=== PATIENT | male | born 1940 | race Caucasian/White ===

== ENCOUNTER → 2018-04-11 10:13 | Outpatient (CLI) | payer MEDICARE, SELFPAY ==
--- NOTE | 2018-04-11 14:45 | NEURO ---
NCS and/or EMG Patient Report Ordering Doctor: Oliver Devlin DATE OF SERVICE: 04/11/18 Morris Baez is a 77-year-old male presents for elective diagnostic testing of the right upper limb. He has chief complaint of numbness and tingling in the right hand. Electrodiagnostic findings: Right median motor nerve demonstrates prolonged distal latency with normal amplitude and reduced conduction velocity. Normal right ulnar motor response, including conduction across the elbow. Prolonged right median F wave. Prolonged right median sensory latency at the wrist. Absent right median palmar latency. Needle EMG testing reveals no evidence of denervation with normal motor unit action potentials. Electrodiagnostic impression: This is an abnormal study in the right upper limb. 1. Elective diagnostic findings demonstrate right-sided median mononeuropathy. This is consistent with a moderate right carpal tunnel syndrome. If there are any further questions, please not hesitate to contact me.
== END ==
PROVIDERS: Family Provider Family Medicine; PCP Family Medicine; Visit Provider Orthopaedic Surgery
DX: R20.2 Paresthesia of skin (principal)
CPT/HCPCS: 95886; 95909

== ENCOUNTER → 2019-08-29 | Outpatient (CLI) | payer MEDICARE, SELFPAY ==
[2014-03-25 06:28] VITALS: BMI 35.3
== END | disposition home or self-care (01) ==
PROVIDERS: PCP Family Medicine; Visit Provider Podiatrist
DX: L03.032 Cellulitis of left toe (principal)
CPT/HCPCS: 87070; 87186; 87205

== ENCOUNTER 2019-12-12 21:35 | Emergency (ER) | payer MEDICARE, SELFPAY ==
--- NOTE | 2019-12-12 00:10 | RAD_ITS ---
STUDY: X-RAY - LEFT FOOT CLINICAL: Male, 79 years old. foot swelling x 1 week, distal lower leg swelling x 6 months. TECHNIQUE: 3 view(s) of the foot. COMPARISON: None. FINDINGS: Normal talus, calcaneus, and tarsal bones. Normal visualized subtalar, talonavicular, calcaneocuboid, tarsal and tarsometatarsal articulations. Normal metatarsi. There is degenerative arthrosis of the metatarsophalangeal joint of the hallux . Normal tibial and fibular sesamoid bones. Normal interphalangeal joint of the great toe. Normal phalanges of the great toe. Normal second through fifth metatarsophalangeal joints. Normal interphalangeal joints and phalanges of the lesser toes. The soft tissue structures are unremarkable. RAD/Foot min 3 Views IMPRESSION: First metatarsophalangeal osteoarthritis. No acute osseous abnormality is evident. Electronically Signed: Marlon Ge MD at 0:45 EDT Tel , Service support ,
[2019-12-12 21:37] VITALS: BP 157/76; PULSE 85; RESP 16; TEMP 36.9; O2SAT 97; BMI 34.0
--- NOTE | 2019-12-12 23:35 | ED.VIS.GEN ---
History of Present Illness Chief Complaint: Cellulitis Informant: Patient Onset: Month(s) Context: Gradual Onset Current Severity: Moderate Maximum Severity: Moderate Narrative: Patient presents with chronic left toe wound. He now has developed cellulitis on his leg. He states he initially had a thick callus on the end of his second toe. He pulled this off in July. He did complete a course of antibiotics in August. He states he got tired of going back to the doctor to pay co-pays so he stopped seeing the doctor. The wound on the end of his second toe never closed and healed completely. He did have redness and swelling onto his foot recently which he attributed to athlete's foot. It got better with Lotrimin and using foot powder. For the last 1 week he has now noted redness and swelling in his left lower leg. He denies fever or chills. He otherwise does not feel ill. He denies diabetic history. - Past Medical History (1) Hypertension Status: Chronic (2) Chronic back pain Status: Chronic (3) History of left knee replacement Status: Chronic Past Medical History - Allergies and Home Meds Allergies/Adverse Reactions: Allergies No Known Allergies Allergy (Verified 12/12/19 21:40) Primary Care Physician: Baljeet Berkowitz MD [Primary Care Provider] - Prior records reviewed: Yes Smoking Status: Never smoker Review of Systems General: Denies: Chills, Fever Eyes: Denies: Visual changes - bilaterally ENT: Denies: Bilateral ear pain Cardiovascular: Denies: Chest pain Respiratory: Denies: Dyspnea, Cough Gastrointestinal: Denies: Abdominal pain Skin: Reports: Rash, Wounds Neurological: Denies: Headache Hematologic: Denies: Easy bruising, Easy bleeding Allergy: Denies: Uticaria Physical Exam Vital Signs/Narrative: Vital Signs Temp Pulse Resp BP Pulse Ox 12/12/19 21:37 98.4 F 85 16 157/76 H 97 Inital Vital Signs reviewed: Yes General: Well nourished, Well developed Head: Normocephalic ENT: Moist mucous membranes Neck: Supple Cardiovascular: Regular rate, Regular rhythm Respiratory: No distress, CTA bilaterally Abdomen: Soft, Nontender Extremities: - - There is an open wound on the distal asp of the left second toe. Left toe is edematous. There is erythema and mild warmth over the anterior left lower leg. Left leg does appear to be more edematous than right. Neurological: Alert, Oriented x3 Psychological: Normal affect Diagnostic/Tx/Re-eval Impressions Foot X-Ray 12/12/19 00:10 IMPRESSION: First metatarsophalangeal osteoarthritis. No acute osseous abnormality is evident. Electronically Signed: Marlon Ge MD at 0:45 EDT Tel , Service support , 12/12/19 00:10 Foot min 3 Views [RAD] Stat Laboratory Results 12/12/19 12/12/19 12/12/19 23:50 23:50 23:50 WBC 10.0 RBC 4.40 L Hgb 13.0 Hct 39.9 L MCV 90.7 MCH 29.5 MCHC 32.6 RDW Std Deviation 44.3 H RDW Coeff of Marta 13.3 Plt Count 261 MPV 9.5 Immature Gran % (Auto) 0.800 Neut % (Auto) 72.9 H Lymph % (Auto) 11.2 L [place] % (Auto) 11.4 H Eos % (Auto) 3.2 Baso % (Auto) 0.5 Absolute Neuts (auto) 7.3 Absolute Lymphs (auto) 1.12 Nucleated RBC % 0 Sodium 141 Potassium 4.1 Chloride 109 H Carbon Dioxide 28.0 Anion Gap 4 L BUN 20 H Creatinine 0.90 Estim Creat Clear Calc 69.72 Est GFR (MDRD) Af Amer 104 Est GFR (MDRD) Non-Af 86 BUN/Creatinine Ratio 22.2 H Glucose 103 Lactic Acid 0.8 Calcium 8.8 ED Disposition - Plan for ED Patient: Disposition: Home or Assisted Living Diagnosis: Cellulitis, Wound of foot Instructions: ED Cellulitis Prescriptions: Smz/Tmp Ds [Bactrim Ds] 1 tab PO BID #20 tab Transmission Status: Pending to [facility] Cephalexin [Keflex] 500 mg PO Q6 #40 cap Transmission Status: Pending to [facility] Referrals: Baljeet Berkowitz MD [Primary Care Provider] - Darrin Montes DPM [STAFF PHYSICIAN] - As soon as possible
[2019-12-13 00:11] LABS: Absolute Lymphocyte Count 1.12 X10^3/uL (0.83-4.51); Absolute Neutrophil Count 7.3 X10^3/uL (2.0-7.7); Basophil# 0.05 X10^3/uL; Basophil% 0.5 % (0-1); Eosinophil# 0.32 X10^3/uL; Eosinophils% 3.2 % (0-5); Hematocrit 39.9 % (40-54); Lymphocyte # 1.12 X10^3/ul (4.0); Lymphocyte % 11.2 % (19-41); Mean Corp Hgb Conc 32.6 g/dL (32-36); Mean Corpuscular Hgb 29.5 pg (27.0-32.0); Mean Corpuscular Volume 90.7 fL (80-94); Mean Platelet Vol. 9.5 fl (6.2-12.0); Monocyte# 1.14 X10^3/uL; Monocyte% 11.4 % (0-10); NRBC Flagged by Analyzer 0 % (0-5); Neutrophil % 72.9 % (47-70); Platelet Count 261 K/mm3 (150-450); RBC Distribution Width CV 13.3 % (11.6-14.6); RBC Distribution Width SD 44.3 fl (35.1-43.9)
[2019-12-13 00:16] LABS: Anion Gap 4 (5-15); BUN 20 mg/dL (7-18); BUN/Creat Ratio 22.2 RATIO (10-20); Calcium,Total 8.8 mg/dL (8.5-10.1); Chloride 109 mmol/L (98-107); EST Glomerular Filtration Rate 86 mL/min (>60); Est Glom Filt Rate - Afr Amer 104 mL/min (>60); Estimated Creatinine Clearance 69.72 ml/min; Glucose 103 mg/dL (74-106); Potassium 4.1 mmol/L (3.5-5.1); Sodium Level 141 mmol/L (136-145)
[2019-12-13 00:25] LABS: Lactic Acid 0.8 mmol/L (0.4-1.9)
[2019-12-13 00:54] VITALS: BP 140/82; PULSE 71; RESP 16; O2SAT 99
[2019-12-13 03:05] VITALS: BP 145/103; PULSE 71; RESP 16; TEMP 36.1; O2SAT 97
[2019-12-13 03:07] VITALS: BP 147/103; PULSE 71; RESP 16; O2SAT 97
[2019-12-13 03:27] VITALS: BP 145/100; PULSE 70; RESP 16; O2SAT 97
== END 2019-12-13 03:28 | disposition home or self-care (01) ==
PROVIDERS: Emergency Provider Emergency Medicine; PCP Family Medicine
DX: S91.105A Unspecified open wound of left lesser toe(s) without damage to nail, initial encounter (principal); L03.116 Cellulitis of left lower limb; X58.XXXA Exposure to other specified factors, initial encounter; Y93.9 Activity, unspecified; Y92.9 Unspecified place or not applicable; I10 Essential (primary) hypertension; G89.29 Other chronic pain; M54.9 Dorsalgia, unspecified; Z96.652 Presence of left artificial knee joint; Z79.899 Other long term (current) drug therapy
CPT/HCPCS: 73630; 80048; 83605; 85025; 87040; 96365; 96366; 96368; 99283; J7040; A4216; J0696

== ENCOUNTER → 2020-10-27 13:38 | Outpatient (CLI) | payer MEDICARE, SELFPAY ==
--- NOTE | 2020-10-27 14:00 | PET_ITS ---
EXAMINATION: 18F Fluciclovine PET/CT CLINICAL HISTORY: 79 year old male with history of carcinoma of the prostate presenting for restaging examination. COMPARISON EXAMINATION: Radionuclide bone scintigraphy study report dated 08/28/20, CT of the abdomen and pelvis report dated 08/28/20 PROCEDURE: The patient received an intravenous bolus injection of 10.44 mCi of Axumin (fluciclovine F-18) via the right hand antecubital fossa, on the imaging table with the patient in the supine position followed by an intravenous normal saline flush. The patient in the supine position with arms above the head, CT scan for attenuation correction was performed immediately following the bolus injection and left up for 1-2 minutes. The PET scan acquisition was begun within 3-5 minutes following injection from mid thigh to the base of the skull. The total scan time was registered between 20-30 minutes. Axumin (fluciclovine F-18) injection is indicated for positron emission tomography PET imaging in men with suspected prostate cancer recurrence based on elevation of the serum prostatic surface antigen (PSA) levels following prior treatment intervention. HEIGHT: 70 inches. WEIGHT: 240 lbs. LIVER BLOOD POOL SUV: 8.4 BLOOD POOL: 1.2 BONE MARROW: 3.8 INDEX LESION SIZE SUV INTERPRETATION Twelfth thoracic vertebra-focal 3.9 (max) > blood pool, = to bone marrow Warrants further investigation with magnetic resonance imaging NON-INDEX LESION SIZE SUV INTERPRETATION Prostate gland, mild homogenous < bone marrow uptake Low likelihood of viable neoplasia FINDINGS: Head/Neck: There is no evidence of abnormal increased radiopharmaceutical concentration on review of the head and neck structures to include the cranial vault and bilateral-lateral and anterior neck. Facilitated tracer distribution is observed in the oral cavity in proximity to dental hardware placement most consistent with metallic reconstruction artifact. Symmetric uptake is visualized in the bilateral parotid glands. CHEST: There is no evidence of abnormal increased radiopharmaceutical concentration on meticulous inspection of the bilateral hemithorax pulmonary parenchyma, pleural interface, mediastinal structures and right-left thoracic perihilum. Pertinent chest CT findings are as follows. There is atherosclerotic calcification defined in the thoracic aorta without evidence of dilatation-aneurysm formation. Coronary arterial calcification is observed. Bilateral axillary soft tissue densities with fatty hilus are non-fluciclovine avid. There are no parenchymal densities-nodules defined in the right and left hemithorax with discernible increased radiopharmaceutical uptake. Subcentimeter non-calcified densities visualized in the right and left hemithorax reveals no evidence of increased fluciclovine uptake. Abdomen/Pelvis: There is mild homogenous enhanced radiopharmaceutical concentration observed in the lower pelvis associated with the prostate gland generating a calculated maximal standard uptake value of 2.7, greater than blood pool, less than bone marrow. Normal physiologic distribution of the radiopharmaceutical is apparent in the hepatic and splenic parenchyma, pancreas, pancreatic head-tail, both renal units, bladder and visualized intestinal tract. Review of CT of the abdomen and pelvis demonstrates the following. Calcified granuloma formation is noted within the splenic parenchyma. Dense calcification is noted in the right and left renal units. There is atherosclerotic calcification defined in the abdominal aorta without evidence of dilatation-aneurysm formation. Pelvic arterial calcification is observed. A fat containing right inguinal hernia is noted. Right and left inguinal soft tissue densities with fatty hilus are ametabolic. Colonic diverticulosis is encountered without evidence of diverticulitis. Skeletal: There is an increase in 18F fluciclovine uptake noted in the twelfth thoracic vertebra demonstrating a calculated maximal standard uptake value of 3.9, essentially equivalent to bone marrow and greater than blood pool. Degenerative changes are noted in the cervical, thoracic and lumbar spine without evidence of increased radiopharmaceutical concentration. PET/PET/CT Tumor Base -Thigh Subs IMPRESSION: 1. Increased 18F fluciclovine uptake defined in the twelfth thoracic vertebra may be further investigated with magnetic resonance imaging secondary to the quantitative degree of uptake. 2. Facilitated radiopharmaceutical concentration observed in the distribution of the prostate gland, homogenous, less than bone marrow uptake is consistent with a low likelihood of viable neoplasm. (Paolo et al, Journal of Nuclear Medicine 55:1986, 2014). 3. No other quantitatively significant hypermetabolic abnormalities are noted. Electronic Signature Storm Slaughter D.O. Electronically Signed: Storm Slaughter DO at 7:23 EDT Tel , Service support ,
== END ==
PROVIDERS: PCP Family Medicine; Referring Provider Radiology Radiation Oncology; Visit Provider Radiology Radiation Oncology
DX: C61 Malignant neoplasm of prostate (principal)
CPT/HCPCS: 78815; A9588

== ENCOUNTER → 2021-01-05 12:54 | Outpatient (CLI) | payer MEDICARE, SELFPAY ==
--- NOTE | 2021-01-05 12:57 | CT_ITS ---
CT Lower Extremity W/O Contrast Injection INDICATION:80 Years old Male presenting with UNILATERAL PRIMARY OSTEOARTHRITIS. TECHNIQUE: Sequential axial 2.5 mm collimated images are obtained through the right hip and ankle. 0.625 mm images were obtained through the right knee. No intravenous contrast was administered. Images were reformatted in sagittal and coronal planes and forwarded for preoperative planning. COMPARISON: X-rays obtained on 12/13/2019 and 03/25/2014.. FINDINGS: Contiguous axial images of the right lower extremity was obtained in different collimations for preoperative planning, images demonstrate degenerative changes, no evidence of cortical irregularity is a lucencies to suggest fractures, no evidence of lytic or sclerotic bone lesions are seen. No evidence of right hip dislocation, mild narrowing of the superior right hip joint space is seen. 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 Prominent prominent osteophyte formation is seen. Subchondral lucencies visualized most prominent in the anterior medial tibial plateau and in the anterior lateral femoral condyle subcortical bone. Small suprapatellar effusion is seen with scattered calcifications.. Small popliteal cyst is visualized. The ankle mortise is well-maintained, the talar dome is unremarkable, degenerative changes visualized with no evidence of cortical irregularity and lucency to suggest a fracture. No evidence of dislocation is seen. Stranding in the intramuscular fat planes is seen. Stranding of the subcutaneous soft tissues is visualized, no evidence of CT/Extremity Lower without Contra IMPRESSION: Degenerative changes of the right lower extremity, no evidence of acute osseous abnormality. Electronically Signed: Jose Clark MD at 15:25 EDT Tel , Service support ,
== END ==
PROVIDERS: PCP Family Medicine; Referring Provider Orthopaedic Surgery; Visit Provider Orthopaedic Surgery
DX: M17.11 Unilateral primary osteoarthritis, right knee (principal)
CPT/HCPCS: 73700

== ENCOUNTER → 2021-01-12 09:28 | Outpatient (CLI) | payer MEDICARE, SELFPAY ==
--- NOTE | 2021-01-12 09:31 | EKG12_ITS ---
Test Reason : PREOP Blood Pressure : / mmHG Vent. Rate : 067 BPM Atrial Rate : 067 BPM P-R Int : 204 ms QRS Dur : 096 ms QT Int : 438 ms P-R-T Axes : 056 002 007 degrees QTc Int : 462 ms Sinus rhythm with frequent Premature ventricular complexes in a pattern of bigeminy Otherwise normal ECG Confirmed by JACKI KEITH, WOODY ([id number]), publications editor MADELINE AKERS ([id number]) on 01/13/2021 9:19:55 AM Referred By: Medardo Morgan Confirmed By:WOODY ECHEVERRIA MD
[2021-01-12 10:41] LABS: Hematocrit 42.7 % (40-54); Hemoglobin 14.2 g/dL (13.0-16.5); Mean Corp Hgb Conc 33.3 g/dL (32-36); Mean Corpuscular Hgb 29.9 pg (27.0-32.0); Mean Corpuscular Volume 89.9 fL (80-94); Mean Platelet Vol. 8.9 fl (6.2-12.0); Platelet Count 203 K/mm3 (150-450); RBC Distribution Width CV 12.4 % (11.6-14.6); RBC Distribution Width SD 41.3 fl (35.1-43.9); Red Blood Count 4.75 M/mm3 (4.6-6.2); White Blood Count 4.4 K/mm3 (4.4-11.0)
[2021-01-12 11:12] LABS: Hemoglobin A1c 5.4 % (3.8-5.6)
[2021-01-12 11:24] LABS: Anion Gap 6 (5-15); BUN 20 mg/dL (7-18); BUN/Creat Ratio 24.2 RATIO (10-20); Calcium,Total 8.9 mg/dL (8.5-10.1); Chloride 107 mmol/L (98-107); Creatinine, Serum 0.82 mg/dL (0.70-1.30); EST Glomerular Filtration Rate 95 mL/min (>60); Est Glom Filt Rate - Afr Amer 115 mL/min (>60); Glucose 106 mg/dL (74-106); Potassium 4.1 mmol/L (3.5-5.1); Sodium Level 139 mmol/L (136-145)
== END ==
PROVIDERS: PCP Family Medicine; Referring Provider Physician Assistant; Visit Provider Physician Assistant
DX: Z01.810 Encounter for preprocedural cardiovascular examination (principal); Z01.818 Encounter for other preprocedural examination; Z11.59 Encounter for screening for other viral diseases; E11.9 Type 2 diabetes mellitus without complications
CPT/HCPCS: 36415; 80048; 83036; 85027; 87635; 93005; C9803; U0005; U0003

== ENCOUNTER → 2021-02-09 13:15 | Outpatient (CLI) | payer MEDICARE, SELFPAY ==
--- NOTE | 2021-02-09 13:22 | ECHOD_ITS ---
Reason For Study: Arrhythmia Procedure This was a 2D Doppler, Color Flow transthoracic echocardiogram. Exam performed in department. Left Ventricle Normal LV size. Moderate concentric left ventricular hypertrophy. Left ventricular systolic function is normal. The estimated ejection fraction is 55 %. Stage 1 diastolic dysfunction. No regional wall motion abnormalities noted. Right Ventricle Normal RV size. Normal systolic function. Atria Normal left atrium. Normal right atrium. Mitral Valve There is mild mitral annular calcification. Mild (1+) eccentric mitral valve insufficiency. Tricuspid Valve Normal tricuspid valve. Mild tricuspid valve insufficiency. Pulmonary artery systolic pressure is 34 mmHg. Aortic Valve Trisinus/trileaflet aortic valve. Mild focal aortic valve calcification. Peak aortic valve gradient 46 mmHg. Mean aortic valve gradient 24 mmHg. Mild to moderate aortic stenosis. Pulmonic Valve Normal pulmonic valve. Great Vessels Normal aortic root. The pulmonary artery is normal size. Normal inferior vena cava. Pericardium/Pleural No pericardial effusion. MMode/2D Measurements & Calculations LVIDd: 4.3 cm IVSd: 1.4 cm LVOT diam: 2.1 cm LVIDs: 3.2 cm LVPWd: 1.5 cm LVOT area: 3.3 cm2 FS: 26.5 % LA dimension: 3.9 cm LAV(MOD-bp): 135.6 ml LA A4 area: 29.0 cm2 LAV(MOD-bp) Indexed: 58.9 ml/m2 LAV(MOD-sp2): 138.2 ml LAV(MOD-sp4): 113.2 ml RA A4 area: 23.4 cm2 Time Measurements MV dec time: 0.35 sec Doppler Measurements & Calculations MV E max grant: 91.2 cm/sec Lat Peak E' Grant: 12.1 cm/sec Med Peak E' Grant: 4.6 cm/sec MV A max grant: 144.3 cm/sec E/E' lat: 7.6 E/E' med: 19.9 MV E/A: 0.63 MV V2 max: 161.1 cm/sec MV P1/2t max grant: 92.5 cm/sec Ao V2 max: 341.0 cm/sec MV max P.4 mmHg MV P1/2t: 114.1 msec Ao max P.6 mmHg MV V2 mean: 76.5 cm/sec MV dec slope: 237.4 cm/sec2 Ao V2 mean: 230.1 cm/sec MV mean P.1 mmHg Ao mean P.5 mmHg MV V2 VTI: 39.7 cm MVA(P1/2t): 1.9 cm2 Ao V2 VTI: 79.9 cm MVA(VTI): 2.4 cm2 RADHA(I,D): 1.2 cm2 RADHA(V,D): 1.2 cm2 LV V1 max: 122.9 cm/sec SV(LVOT): 95.5 ml PA V2 max: 88.8 cm/sec LV V1 max P.1 mmHg LV V1 mean P.0 mmHg LV V1 mean: 80.0 cm/sec LV V1 VTI: 28.6 cm TR max grant: 273.3 cm/sec TR max P.9 mmHg ECHO/Echo Complete Interpretation Summary Normal LV size. Left ventricular systolic function is normal. The estimated ejection fraction is 55 %. Moderate concentric left ventricular hypertrophy. Mean aortic valve gradient 24 mmHg. Mild to moderate aortic stenosis. Stage 1 diastolic dysfunction. Ordering Physician: Jair Coto Referring Physician: Darrin Ramirez Performed By: Juan Wise RCS
== END ==
PROVIDERS: PCP Family Medicine; Referring Provider Internal Medicine Cardiovascular Disease; Visit Provider Internal Medicine Cardiovascular Disease
DX: R94.31 Abnormal electrocardiogram [ECG] [EKG] (principal)
CPT/HCPCS: 93306

== ENCOUNTER → 2021-03-17 08:26 | Outpatient (CLI) | payer MEDICARE, SELFPAY ==
--- NOTE | 2021-03-17 09:17 | EKG12_ITS ---
Test Reason : PREOP Blood Pressure : / mmHG Vent. Rate : 083 BPM Atrial Rate : 083 BPM P-R Int : 200 ms QRS Dur : 098 ms QT Int : 418 ms P-R-T Axes : 059 014 022 degrees QTc Int : 491 ms Sinus rhythm with frequent Premature ventricular complexes Prolonged QT Abnormal ECG Confirmed by JACKI KEITH, WOODY ([id number]), website/blog editor MADELINE AKERS ([id number]) on 03/18/2021 9:01:22 AM Referred By: Medardo Morgan Confirmed By:WOODY ECHEVERRIA MD
[2021-03-17 10:24] LABS: Hematocrit 41.4 % (40-54); Mean Corp Hgb Conc 33.8 g/dL (32-36); Mean Corpuscular Hgb 29.6 pg (27.0-32.0); Mean Corpuscular Volume 87.5 fL (80-94); Mean Platelet Vol. 9.3 fl (6.2-12.0); Platelet Count 232 K/mm3 (150-450); RBC Distribution Width CV 12.4 % (11.6-14.6); RBC Distribution Width SD 39.8 fl (35.1-43.9); Red Blood Count 4.73 M/mm3 (4.6-6.2); White Blood Count 4.7 K/mm3 (4.4-11.0)
[2021-03-17 10:42] LABS: Hemoglobin A1c 5.7 % (3.8-5.6)
[2021-03-17 11:01] LABS: Anion Gap 6 (5-15); BUN 19 mg/dL (7-18); BUN/Creat Ratio 23.4 RATIO (10-20); Chloride 104 mmol/L (98-107); Creatinine, Serum 0.81 mg/dL (0.70-1.30); EST Glomerular Filtration Rate 97 mL/min (>60); Est Glom Filt Rate - Afr Amer 117 mL/min (>60); Glucose 80 mg/dL (74-106); Potassium 3.9 mmol/L (3.5-5.1); Sodium Level 138 mmol/L (136-145)
== END ==
PROVIDERS: PCP Family Medicine; Referring Provider Physician Assistant; Visit Provider Physician Assistant
DX: Z01.810 Encounter for preprocedural cardiovascular examination (principal); Z01.818 Encounter for other preprocedural examination; Z11.59 Encounter for screening for other viral diseases
CPT/HCPCS: 36415; 80048; 83036; 85027; 87635; 93005; C9803; U0005; U0003

== ENCOUNTER → 2021-03-19 | Outpatient (CLI) | payer MEDICARE, SELFPAY ==
--- NOTE | 2021-03-19 | KNEE_PTH ---
PATIENT: KEENA FRIED LOC: [facility] U#:[id number] AGE/SX: 80/M ROOM: RE03/19/[address]: Dr. Bryan Daniel DO : 1940 BED: DIS: 03/19/2021 SPEC #: [id number] RECD: 03/19/21 15:00 STATUS: JOHN REMorena #: [id number] ANTHONY: 03/19/21 00:[address]: Bryan Daniel DEPT: SURGICAL PATHOLOGY RECD BY: Sebastian Dyson ENTERED: 03/22/21 09:02 SP TYPE: TOTAL KNEE OTHR DR: Dr. Darrin Ramirez MD [facility] Tissues: Knee, NOS Procedures: Decalcification bone/plaque Surgery Specimen Level IV HEADER OPERATION: Robotic assisted right total knee arthroplasty PRE-OP DIAGNOSIS: Unilateral primary osteoarthritis TISSUE SUBMITTED: Bone and soft tissue right knee MICROSCOPIC DIAGNOSIS Bone and soft tissue, right knee, total knee replacement/resection: Pieces of bone with degenerative osteoarthritic changes. Fibroadipose tissue, fibroconnective tissue, skeletal muscle tissue and reactive synovial tissue. MONIKA:blanca 03/25/2021 MICROSCOPIC DESCRIPTION Slides are reviewed. GROSS DESCRIPTION Received is one container designated bone and soft tissue right knee. The specimen consists of multiple fragments of frazier-yellow bone measuring in aggregate 11.5 x 8 x 4 cm. Also in the specimen container are multiple fragments of yellow-white soft tissue measuring in aggregate 11 x 8 x 4 cm. A number of bony fragments contain articular surfaces consistent with tibial plateau and femoral condyle and displaying prominent osteophyte formation, eburnation, and bone erosion. Riveter Pneumatic sections are submitted in two cassettes as follows: 1 - soft tissue, 2 - bone after decalcification. / MONIKA:blanca 03/22/21 TC:5 [facility] [place]: [id number], [id number]
== END | disposition home or self-care (01) ==
LOC: LABSPEC 15:23
PROVIDERS: PCP Family Medicine; Visit Provider Orthopaedic Surgery
DX: M17.11 Unilateral primary osteoarthritis, right knee (principal)
CPT/HCPCS: 88305; 88311

== ENCOUNTER 2021-09-07 11:14 | Emergency (ER) | payer MEDICARE, SELFPAY ==
[2021-09-07 11:14] VITALS: BP 194/74; PULSE 76; RESP 16; TEMP 36.4; O2SAT 97; BMI 35.7
--- NOTE | 2021-09-07 11:25 | CT_ITS ---
STUDY: CT ABDOMEN AND PELVIS WITHOUT CONTRAST REASON FOR EXAM: Male, 80 years old. Kidney Stone. History of prostate carcinoma. RADIATION DOSAGE (If Supplied By Facility): CTDIvol = ( 19.76 ) mGy, DLP = ( 1031.65 ) mGycm TECHNIQUE: Transaxial images were obtained from the dome of the diaphragm to the symphysis pubis without oral contrast, and without intravenous contrast. Sagittal and coronal images were reconstructed. Individualized dose optimization techniques were used for this CT. COMPARISON: None. FINDINGS: Calcified right hilar lymph nodes. Calcified granuloma in the right middle lobe. There is a 5.2 mm noncalcified nodule in the peripheral lateral aspect of the left lower lobe as seen on Image #9. Coronary artery calcification. Normal liver. Normal gallbladder and extrahepatic biliary system. There are multiple benign calcified granulomata of the spleen. Normal pancreas. Normal bilateral adrenal glands. Nonobstructive right intrarenal calculi. The largest calculus measures 1.2 cm. This is in the lower pole calyx of the right kidney. There is a 1 cm calculus at the left ureteropelvic junction causing left hydronephrosis and proximal left hydroureter.. Left perinephric stranding. 2 mm nonobstructive calculus in the posterior midpole calyx. Nonobstructive tiny calculi in the lower pole calyx of the left kidney. There is a small hiatal hernia. Normal small intestine. There are multiple colonic diverticula consistent with diverticulosis. The appendix is visualized and appears normal. There is diffuse atherosclerotic calcification of the abdominal aorta and its major visceral branches, without a demonstrated aneurysm. Normal inferior vena cava. Normal retroperitoneum. Normal urinary bladder. There are prostatic calcifications. There is a right-sided inguinal hernia containing adipose tissue. There are diffuse degenerative changes of the visualized lumbar spine. CT/Abdomen/Pelvis without Cont IMPRESSION: 1 cm calculus at the left ureteropelvic junction causing left-sided hydronephrosis and proximal left hydroureter with left perinephric stranding. Nonobstructive bilateral intrarenal calculi more prominent on the right side. The largest calculus is in the lower pole calyx of the right kidney measuring 1.2 cm. Prostatic calcification. Electronically Signed: Jules Vo MD at 12:13 EDT ,
--- NOTE | 2021-09-07 11:26 | EX.ED.DYSGE1 ---
HPI History of Present Illness Chief Complaint: Flank Pain Informant: patient Narrative Narrative: 80-year-old male presenting to the emergency room with left flank pain. Symptoms began abruptly yesterday morning at 0400 hours. He notes associated nausea and constipation. He states now he feels the pain in the left flank but also wrapping around to the lower left quadrant of his abdomen. No fevers. Sees Dr. Mejia for urology. He has not required stone surgery in the past. PFSH PFS Medical History Abnormal electrocardiogram BPH (benign prostatic hyperplasia) Chronic back pain Diverticulosis Essential hypertension GERD (gastroesophageal reflux disease) Hyperlipidemia Inguinal hernia Lung nodule Multiple premature ventricular complexes Nonrheumatic aortic (valve) stenosis Obesity Osteoarthritis Prostate cancer metastatic to bone Home Medications acidophilus-pectin, citrus 1 tab PO DAILY 03/12/14 [History Last Taken Unknown] metoprolol succinate 25 mg PO DAILY 03/12/14 [History Last Taken 03/25/14 05:00] multivitamin with folic acid [Thera] 1 tab PO DAILY 03/12/14 [History Last Taken Unknown] cholecalciferol (vitamin D3) 1,250 mcg PO DAILY 12/12/19 [History Last Taken Unknown] meloxicam 15 mg PO DAILY 12/12/19 [History Last Taken Unknown] tamsulosin 1 tab PO DAILY 12/12/19 [History Last Taken Unknown] lisinopril 20 mg-hydrochlorothiazide 25 mg tablet 1 tab PO DAILY 01/27/21 [History Last Taken Unknown] ondansetron 4 mg PO Q6H PRN PRN #10 tab 09/07/21 [Rx Last Taken Unknown] oxycodone-acetaminophen 1 - 2 tab PO Q6H PRN PRN 5 Days #20 tablet 09/07/21 [Rx Last Taken Unknown] Allergy/AdvReac Type Severity Reaction Status Date / Time No Known Allergies Allergy Verified 09/07/21 11:16 Family History Father Heart disease Surgical History Amputated toe History of carpal tunnel release History of inguinal hernia repair History of left knee replacement History of total knee arthroplasty Social History (Updated 09/07/21 @ 11:[address] Marty Bender, DO) Smoking Status: Never smoker substance use type: does not use ROS ROS ED Constitutional Constitutional ED: Denies chills, fever(s) or weight loss Eyes Eyes: Denies change in vision or diplopia ENT ENT ED: Denies ear pain, rhinorrhea or sore throat Cardiovascular Cardiovascular: Denies chest pain, orthopnea, palpitations or racing heartbeat Respiratory/Chest Respiratory/Chest: Denies cough, dyspnea or orthopnea Gastrointestinal Gastrointestinal: Reports abdominal pain and nausea; Denies diarrhea or vomiting Genitourinary Genitourinary ED: Denies dysuria, hematuria or urinary frequency Musculoskeletal Musculoskeletal: Reports back pain; Denies arthralgias or myalgias Integumentary Denies abscess or rash Neurologic Neurologic: Denies headache(s) or weakness Psychiatric Psychiatric: Denies anxiety, depression, suicidal ideation or suicidal thoughts Endocrine Endocrinology: Denies polydipsia, polyphagia or polyuria Allergic/Immunologic Allergic/Immunologic ED: Denies mouth swelling, tongue swelling or urticaria EXAM Physical Exam Const Vital Signs: 09/07/21 11:14 Temperature 97.6 F L Temperature Source Temporal Pulse Rate 76 Respiratory Rate 16 Blood Pressure 194/74 H Blood Pressure Mean 114 Pulse Ox 97 Oxygen Delivery Method Room Air Positive well nourished and well developed General Appearance ED: well developed HEENT Reports normocephalic, head/scalp atraumatic, TM's clear and moist mucous membranes Negative for trauma Tympanic Membrane ED: Yes TM's clear Eyes PERRL and EOMs intact bilaterally Neck no lymphadenopathy, supple and no JVD Resp normal respiratory effort and clear to auscultation bilaterally Cardio regular rate, regular rhythm and no murmurs GI normal to inspection, nondistended, normoactive bowel sounds and non-tender Palpation: soft Back/Spine no CVA tenderness and normal ROM Extremity normal to inspection General Extremety ED: Negative for edema General Extremity: Negative for edema Neuro oriented x3 and CN's II-XII intact bilaterally Sensorium / Orientation: alert Motor Exam: strength 5/5 throughout Psych mental status grossly normal Mood & Affect: Negative for depressed or tearful Skin no rashes or lesions noted and no wounds MDM MDM MDM Narrative Medical decision making narrative: Creatinine today is elevated off baseline at 1.46. Urinalysis is negative. There is a 1 cm calculus at the left UPJ with left-sided hydronephrosis perinephric stranding and left hydroureter. Patient received Toradol morphine Zofran and fluids. Case was discussed with his urologist Dr. Mejia who is come to the emergency department to evaluate the patient Lab Data Attestation: I reviewed the patient's lab results. Labs: Laboratory Results - last 24 hr 09/07/21 09/07/21 11:38 11:45 Sodium 136 Potassium 3.2 L Chloride 99 Carbon Dioxide 27.0 Anion Gap 10 BUN 24 H Creatinine 1.46 H Estim Creat Clear Calc 40.97 Est GFR (MDRD) Af Amer 60 Est GFR (MDRD) Non-Af 49 L BUN/Creatinine Ratio 16.4 Glucose 135 H Calcium 9.3 Urine Color Yellow Urine Clarity Clear Urine pH 6.0 Ur Specific [place] 1.015 Urine Protein 15 H Urine Glucose (UA) Normal Urine Ketones Negative Urine Occult Blood 50 H Urine Nitrite Negative Urine Bilirubin Negative Urine Urobilinogen Normal Ur Leukocyte Esterase Negative Urine RBC 0 SEEN Urine WBC 0 SEEN Ur Squamous Epith Cells 0 SEEN Urine Bacteria 0 SEEN Urine Mucus 0 SEEN Radiography Diagnostic Testing: Clinical Impression(s) from Imaging Studies Abdomen/Pelvis CT 09/07/21 11:25 IMPRESSION: 1 cm calculus at the left ureteropelvic junction causing left-sided hydronephrosis and proximal left hydroureter with left perinephric stranding. Nonobstructive bilateral intrarenal calculi more prominent on the right side. The largest calculus is in the lower pole calyx of the right kidney measuring 1.2 cm. Prostatic calcification. Electronically Signed: Jules Vo MD at 12:13 EDT , Discharge Plan Triage Chief Complaint: Flank Pain ED Provider: Marty Bender Dx/Rx/DC Orders Clinical Impression: Ureterolithiasis, Renal colic on left side Instructions: ED Kidney Stone w/ Colic Prescriptions: New oxycodone-acetaminophen [oxycodone-acetaminophen] 1 TABLET tablet 1 - 2 tab PO Q6H PRN PRN (Reason: pain) 5 Days Qty: 20 RF: 0 ondansetron [ondansetron] 4 MG tablet 4 mg PO Q6H PRN PRN (Reason: Nausea) Qty: 10 RF: 0 No Action lisinopril-hydrochlorothiazide 20-25 mg tablet 1 tab PO DAILY RF: 0 metoprolol succinate 25 MG tablet 25 mg PO DAILY RF: 0 acidophilus-pectin, citrus 1 TABLET tablet 1 tab PO DAILY RF: 0 multivitamin with folic acid [Thera] 1 TABLET tablet 1 tab PO DAILY RF: 0 meloxicam 15 MG tablet 15 mg PO DAILY RF: 0 tamsulosin 0.4 mg capsule 1 tab PO DAILY RF: 0 cholecalciferol (vitamin D3) 1,250 MCG capsule 1,250 mcg PO DAILY RF: 0 Primary Care Provider: Darrin Ramirez Referrals: Darrin Ramirez MD [Primary Care Provider] - Cleve Mejia MD [STAFF PHYSICIAN] - [facility] appointment Disposition Disposition: Home, Self Care
[2021-09-07] MEDS: Ondansetron 4 MG/2 ML Vial IV (11:36)
[2021-09-07] MEDS: Ketorolac 30 MG/ML Syringe IV (11:36)
[2021-09-07] MEDS: Morphine 4 MG/ML Syringe IV (11:37)
[2021-09-07] MEDS: 0.9% Normal Saline 1,000 ML 250 ML IV (11:38)
[2021-09-07 11:45] LABS: Bacteria 0 SEEN /hpf (None Seen); Mucous, Urine 0 SEEN /hpf (<or=2+); Red Blood Cells-Urine 0 SEEN /hpf (0-5); Squamous Epithelial Cells - UA 0 SEEN /hpf (0-5); White Blood Cells 0 SEEN /hpf (0-5)
[2021-09-07 11:54] LABS: Color, Urine Yellow (Yellow); Glucose, Dipstick Normal (Normal); Ketone-Dipstick Negative (Negative); Leukocyte Esterase-Dipstick Negative /ul (Negative); Nitrite-Dipstick Negative (Negative); Occult Blood-Urine 50 /ul (Negative); Protein-Dipstick 15 mg/dl (Negative); Specific Gravity, Urine 1.015 (1.002-1.030); Urine Bilirubin Dipstick Negative (Negative); Urine Clarity Clear (Clear); Urine Urobilinogen Normal (Normal)
[2021-09-07 12:05] LABS: Anion Gap 10 (5-15); BUN 24 mg/dL (7-18); BUN/Creat Ratio 16.4 RATIO (10-20); Calcium,Total 9.3 mg/dL (8.5-10.1); Chloride 99 mmol/L (98-107); Creatinine, Serum 1.46 mg/dL (0.70-1.30); EST Glomerular Filtration Rate 49 mL/min (>60); Est Glom Filt Rate - Afr Amer 60 mL/min (>60); Estimated Creatinine Clearance 40.97 ml/min; Glucose 135 mg/dL (74-106); Potassium 3.2 mmol/L (3.5-5.1); Sodium Level 136 mmol/L (136-145)
--- NOTE | 2021-09-07 13:15 | EKG12_ITS ---
Test Reason : BACK PAIN Blood Pressure : / mmHG Vent. Rate : 067 BPM Atrial Rate : 067 BPM P-R Int : 202 ms QRS Dur : 096 ms QT Int : 460 ms P-R-T Axes : 052 002 -09 degrees QTc Int : 486 ms Sinus rhythm with occasional Premature ventricular complexes Abnormal ECG Confirmed by ROB KEITH, CHRIS ([id number]), film and video editor MADELINE AKERS ([id number]) on 09/08/2021 9:49:55 AM Referred By: Confirmed By:CHRIS RIVAS MD
--- NOTE | 2021-09-07 13:29 | PCM.CONS.U ---
Assessment & Plan Assessment/Plan (1) Ureterolithiasis: (2) Renal colic on left side: PLAN: Discharged home with pain medicine etc., will be to see him preop blood work COVID EKG. Plan for left ureteroscopy laser lithotripsy of stone and stent. In the near future. HPI Consult Data Date of Consult: 09/07/21 HPI Narrative HPI Narrative: KEENA FRIED, is a 80 M who presents to the emergency room with a large stone in the proximal left ureter causing severe obstruction his pain is now under control he will be discharged home today today met with the patient we just discussed options of management for his kidney stone we will get him set up in the near future for surgery for laser lithotripsy of the stone. [facility] Medical History Abnormal electrocardiogram BPH (benign prostatic hyperplasia) Chronic back pain Diverticulosis Essential hypertension GERD (gastroesophageal reflux disease) Hyperlipidemia Inguinal hernia Lung nodule Multiple premature ventricular complexes Nonrheumatic aortic (valve) stenosis Obesity Osteoarthritis Prostate cancer metastatic to bone Home Medications acidophilus-pectin, citrus 1 tab PO DAILY 03/12/14 [History Last Taken Unknown] metoprolol succinate 25 mg PO DAILY 03/12/14 [History Last Taken 03/25/14 05:00] multivitamin with folic acid [Thera] 1 tab PO DAILY 03/12/14 [History Last Taken Unknown] cholecalciferol (vitamin D3) 1,250 mcg PO DAILY 12/12/19 [History Last Taken Unknown] meloxicam 15 mg PO DAILY 12/12/19 [History Last Taken Unknown] tamsulosin 1 tab PO DAILY 12/12/19 [History Last Taken Unknown] lisinopril 20 mg-hydrochlorothiazide 25 mg tablet 1 tab PO DAILY 01/27/21 [History Last Taken Unknown] ondansetron 4 mg PO Q6H PRN PRN #10 tab 09/07/21 [Rx Last Taken Unknown] oxycodone-acetaminophen 1 - 2 tab PO Q6H PRN PRN 5 Days #20 tablet 09/07/21 [Rx Last Taken Unknown] Allergy/AdvReac Type Severity Reaction Status Date / Time No Known Allergies Allergy Verified 09/07/21 11:16 Family History Father Heart disease Surgical History Amputated toe History of carpal tunnel release History of inguinal hernia repair History of left knee replacement History of total knee arthroplasty Social History (Updated 09/07/21 @ 11:[address] Marty Bender DO) Smoking Status: Never smoker substance use type: does not use Lab / Micro Data Result Diagrams: 09/07/21 11:45 09/07/21 11:45 Labs: Laboratory Results - last 24 hr 09/07/21 11:38: Urine Color Yellow, Urine Clarity Clear, Urine pH 6.0, Ur Specific [place] 1.015, Urine Protein 15 H, Urine Glucose (UA) Normal, Urine Ketones Negative, Urine Occult Blood 50 H, Urine Nitrite Negative, Urine Bilirubin Negative, Urine Urobilinogen Normal, Ur Leukocyte Esterase Negative, Urine RBC 0 SEEN, Urine WBC 0 SEEN, Ur Squamous Epith Cells 0 SEEN, Urine Bacteria 0 SEEN, Urine Mucus 0 SEEN 09/07/21 11:45: Sodium 136, Potassium 3.2 L, Chloride 99, Carbon Dioxide 27.0, Anion Gap 10, BUN 24 H, Creatinine 1.46 H, Estim Creat Clear Calc 40.97, Est GFR (MDRD) Af Amer 60, Est GFR (MDRD) Non-Af 49 L, BUN/Creatinine Ratio 16.4, Glucose 135 H, Calcium 9.3 Radiology Impression Abdomen/Pelvis CT 09/07/21 11:25 IMPRESSION: 1 cm calculus at the left ureteropelvic junction causing left-sided hydronephrosis and proximal left hydroureter with left perinephric stranding. Nonobstructive bilateral intrarenal calculi more prominent on the right side. The largest calculus is in the lower pole calyx of the right kidney measuring 1.2 cm. Prostatic calcification. Electronically Signed: Jules Vo MD at 12:13 EDT ,
[2021-09-07 13:39] VITALS: BP 155/87; PULSE 67
[2021-09-07 13:40] LABS: Absolute Lymphocyte Count 1.05 X10^3/uL (0.83-4.51); Absolute Neutrophil Count 6.9 X10^3/uL (2.0-7.7); Basophil# 0.04 X10^3/uL; Basophil% 0.4 % (0-1); Eosinophil# 0.22 X10^3/uL; Eosinophils% 2.4 % (0-5); Hematocrit 43.5 % (40-54); Hemoglobin 14.3 g/dL (13.0-16.5); Lymphocyte # 1.05 X10^3/ul (0.83-4.51); Lymphocyte % 11.7 % (19-41); Mean Corp Hgb Conc 32.9 g/dL (32-36); Mean Corpuscular Hgb 29.2 pg (27.0-32.0); Mean Corpuscular Volume 88.8 fL (80-94); Mean Platelet Vol. 10.1 fl (6.2-12.0); Monocyte# 0.71 X10^3/uL; Monocyte% 7.9 % (0-10); NRBC Flagged by Analyzer 0 % (0-5); Neutrophil # 6.94 X10^3/uL (2.7-7.7); Neutrophil % 77.3 % (47-70); Platelet Count 223 K/mm3 (150-450); RBC Distribution Width CV 13.7 % (11.6-14.6); RBC Distribution Width SD 44.5 fl (35.1-43.9)
--- NOTE | 2021-09-13 14:27 | CASEMGMT ---
ED follow-up phone call: Patient Cheryl answered call. Per , patient is doing better today. Patient has follow-up with Dr. Mejia. Patient was able to fill prescriptions without any issues. had no further questions or concerns at this time.
== END 2021-09-07 13:42 | disposition home or self-care (01) ==
PROVIDERS: Emergency Provider Emergency Medicine; PCP Family Medicine; Visit Provider Emergency Medicine
DX: N13.2 Hydronephrosis with renal and ureteral calculous obstruction (principal); E78.5 Hyperlipidemia, unspecified; I10 Essential (primary) hypertension; N40.0 Benign prostatic hyperplasia without lower urinary tract symptoms; G89.29 Other chronic pain; K21.9 Gastro-esophageal reflux disease without esophagitis; I35.0 Nonrheumatic aortic (valve) stenosis; E66.9 Obesity, unspecified; Z85.46 Personal history of malignant neoplasm of prostate; M19.90 Unspecified osteoarthritis, unspecified site; Z85.830 Personal history of malignant neoplasm of bone; Z79.899 Other long term (current) drug therapy; N13.4 Hydroureter; Z68.35 Body mass index [BMI] 35.0-35.9, adult
CPT/HCPCS: 74176; 80048; 81001; 85025; 87811; 93005; 96361; 96374; 96375; 99283; J7030; A4216; J2405

== ENCOUNTER 2022-03-21 01:47 | Emergency (ER) | payer MEDICARE, SELFPAY ==
[2022-03-21 01:48] VITALS: BP 163/99; PULSE 91; RESP 16; TEMP 36.8; O2SAT 95; BMI 35.2
--- NOTE | 2022-03-21 02:11 | CT_ITS ---
EXAM: CT ABDOMEN AND PELVIS WITHOUT INTRAVENOUS CONTRAST CLINICAL INDICATION: flank pain right TECHNIQUE: Helically acquired images were obtained of the abdomen and pelvis without intravenous contrast. CTDIvol = ( 18.44 ) mGy, DLP = ( 935.19 ) mGycm This CT exam was performed using one or more of the following dose reduction techniques: automated exposure control, adjustment of the mA and/or kV according to patient size, and/or use of iterative reconstruction technique. This report was created using hi5 report generation technology. COMPARISON: 09/08/2019 FINDINGS: LOWER THORAX: Calcified granulomas involving right middle lobe. Stable small subpleural noncalcified indeterminate pulmonary nodule involving the inferior lingula. No cardiomegaly. No significant pericardial effusion. ABDOMEN: LIVER: Unremarkable. Homogeneous. GALLBLADDER AND BILE DUCTS: Unremarkable. No calcified gallstones. No gallbladder distention or wall edema. No intra- or extrahepatic biliary ductal dilation. PANCREAS: Unremarkable. No focal cystic mass. SPLEEN: Splenomegaly. Calcified granulomas of the spleen. ADRENALS: Unremarkable. No nodules. KIDNEYS AND URETERS: 1.3 cm obstructing calculus of the right UPJ with moderate hydronephrosis. Stranding about the right kidney may be postobstructive but would correlate clinically to exclude any superimposed infection. Redemonstration of bilateral small and punctate nonobstructing calyceal calculi. No other renal masses. STOMACH AND BOWEL: No acute epiglottis. No colitis. No bowel obstruction. PELVIS: APPENDIX: No evidence of acute appendicitis. BLADDER: Unremarkable. REPRODUCTIVE: Unremarkable as visualized. No mass. ABDOMEN and PELVIS: INTRAPERITONEAL SPACE: No free air or free fluid. BONES/JOINTS: Unremarkable. No suspicious lytic or blastic abnormality. SOFT TISSUES: Small fat-containing right inguinal hernia. VASCULATURE: Unremarkable. Abdominal aorta is non-dilated. LYMPH NODES: Calcified small lymph nodes involving the right right hilar region. CT/Abdomen/Pelvis without Cont IMPRESSION: 1.3 cm obstructing calculus of the right UPJ with moderate hydronephrosis. Stranding about the right kidney may be postobstructive but would correlate clinically to exclude any superimposed infection. Electronically Signed: Otoniel Dubon MD at 2:48 EST Reading Location ID and State: [facility] / [place] Tel , Service support ,
[2022-03-21] MEDS: Ondansetron 4 MG/2 ML Vial IV (02:16)
[2022-03-21] MEDS: 0.9% Normal Saline 1,000 ML 999 ML IV (02:17)
[2022-03-21] MEDS: Morphine 4 MG/ML Syringe IV (02:17)
[2022-03-21 02:21] LABS: Absolute Lymphocyte Count 1.33 X10^3/uL (0.83-4.51); Absolute Neutrophil Count 7.8 X10^3/uL (2.0-7.7); Basophil# 0.05 X10^3/uL; Basophil% 0.5 % (0-1); Eosinophil# 0.34 X10^3/uL; Eosinophils% 3.2 % (0-5); Hematocrit 36.2 % (40-54); Hemoglobin 11.9 g/dL (13.0-16.5); Lymphocyte # 1.33 X10^3/ul (0.83-4.51); Lymphocyte % 12.5 % (19-41); Mean Corp Hgb Conc 32.9 g/dL (32-36); Mean Corpuscular Hgb 29.5 pg (27.0-32.0); Mean Corpuscular Volume 89.8 fL (80-94); Mean Platelet Vol. 9.3 fl (6.2-12.0); Monocyte# 1.04 X10^3/uL; Monocyte% 9.8 % (0-10); NRBC Flagged by Analyzer 0 % (0-5); Neutrophil # 7.79 X10^3/uL (2.7-7.7); Neutrophil % 73.4 % (47-70); Platelet Count 244 K/mm3 (150-450); RBC Distribution Width CV 12.8 % (11.6-14.6); RBC Distribution Width SD 42.1 fl (35.1-43.9); Red Blood Count 4.03 M/mm3 (4.6-6.2); White Blood Count 10.6 K/mm3 (4.4-11.0)
[2022-03-21 02:21] LABS: Bacteria 0 SEEN /hpf (None Seen); Color, Urine Yellow (Yellow); Glucose, Dipstick Normal (Normal); Ketone-Dipstick Negative (Negative); Leukocyte Esterase-Dipstick Negative /ul (Negative); Mucous, Urine 0 SEEN /hpf (<or=2+); Nitrite-Dipstick Negative (Negative); Occult Blood-Urine 10 /ul (Negative); Protein-Dipstick Negative (Negative); Red Blood Cells-Urine 0 SEEN /hpf (0-5); Specific Gravity, Urine 1.015 (1.002-1.030); Squamous Epithelial Cells - UA 0 SEEN /hpf (0-5); Urine Bilirubin Dipstick Negative (Negative); Urine Clarity Clear (Clear); Urine Urobilinogen Normal (Normal); White Blood Cells 0 SEEN /hpf (0-5)
[2022-03-21 02:35] LABS: Anion Gap 10 (5-15); BUN 27 mg/dL (7-18); BUN/Creat Ratio 20.3 RATIO (10-20); Calcium,Total 9.3 mg/dL (8.5-10.1); Chloride 102 mmol/L (98-107); Creatinine, Serum 1.33 mg/dL (0.70-1.30); EST Glomerular Filtration Rate 55 mL/min (>60); Est Glom Filt Rate - Afr Amer 66 mL/min (>60); Estimated Creatinine Clearance 44.21 ml/min; Glucose 128 mg/dL (74-106); Potassium 3.6 mmol/L (3.5-5.1); Sodium Level 137 mmol/L (136-145)
--- NOTE | 2022-03-21 03:14 | EX.ED.DYSGE1 ---
HPI History of Present Illness Chief Complaint: Flank Pain Narrative Narrative: Patient is an 81-year-old male with past medical history of hypertension hyperlipidemia and prostate cancer as well as kidney stone. He states roughly 6 months ago he had kidney stones in the left side that needed intervention by urology. He states he was told at that time there is a stone in the right kidney. Patient states that throughout the day he has had some right-sided back pain but has been mild in nature. He denies any excessive activity or trauma. He denies any dysuria or hematuria. He denies any loss of bowel or bladder control or IV drug use. He states as time passed his pain began to increase and moved towards the right abdomen consistent with his previous kidney stones. He states that as he cannot get the pain under control and he has concern for repeat kidney stone he presents for evaluation [facility] Medical History Abnormal electrocardiogram BPH (benign prostatic hyperplasia) Chronic back pain Diverticulosis Essential hypertension GERD (gastroesophageal reflux disease) Hyperlipidemia Inguinal hernia Lung nodule Multiple premature ventricular complexes Nonrheumatic aortic (valve) stenosis Obesity Osteoarthritis Prostate cancer metastatic to bone Home Medications acidophilus 25 million cell-pectin, citrus 100 mg tablet 1 tab PO DAILY 03/12/14 [History Last Taken Unknown] metoprolol succinate 25 mg tablet,extended release 24 hr 25 mg PO DAILY 03/12/14 [History Last Taken 03/25/14 05:00] multivitamin with folic acid 400 mcg tablet (Thera) 1 tab PO DAILY 03/12/14 [History Last Taken Unknown] cholecalciferol (vitamin D3) 1,250 mcg (50,000 unit) capsule 1,250 mcg PO DAILY 12/12/19 [History Last Taken Unknown] tamsulosin 0.4 mg capsule 1 tab PO DAILY 12/12/19 [History Last Taken Unknown] lisinopril 20 mg-hydrochlorothiazide 25 mg tablet 1 tab PO DAILY 01/27/21 [History Last Taken Unknown] ondansetron 4 mg disintegrating tablet 4 mg PO Q6H PRN PRN Nausea #10 tabs 09/07/21 [Rx Last Taken Unknown] amlodipine 10 mg tablet 10 mg PO DAILY 03/21/22 [History Last Taken Unknown] finasteride 5 mg tablet 5 mg PO DAILY 03/21/22 [History Last Taken Unknown] ketorolac 10 mg tablet 10 mg PO Q6H PRN pain 5 days #20 tabs 03/21/22 [Rx Last Taken Unknown] omeprazole 10 mg capsule,delayed release 20 mg PO DAILY 03/21/22 [History Last Taken Unknown] oxybutynin chloride 5 mg tablet,extended release 24 hr 5 mg PO DAILY 03/21/22 [History Last Taken Unknown] oxycodone-acetaminophen 5 mg-325 mg tablet (Percocet) 1 tab PO Q6H PRN pain 3 days #12 tabs 03/21/22 [Rx Last Taken Unknown] prednisone 5 mg tablet 5 mg PO DAILY 03/21/22 [History Last Taken Unknown] Allergy/AdvReac Type Severity Reaction Status Date / Time No Known Allergies Allergy Verified 09/07/21 11:16 Family History Father Heart disease Surgical History Amputated toe History of carpal tunnel release History of inguinal hernia repair History of left knee replacement History of total knee arthroplasty Social History (Updated 09/07/21 @ 11:[address] Marty Bender DO) Smoking Status: Never smoker substance use type: does not use ROS ROS ED Constitutional Constitutional ED: Denies chills or fever(s) ENT ENT ED: Denies sore throat Cardiovascular Cardiovascular: Denies chest pain Respiratory/Chest Respiratory/Chest: Denies cough or dyspnea Gastrointestinal Gastrointestinal: Reports abdominal pain; Denies diarrhea, nausea or vomiting Genitourinary Genitourinary ED: Denies dysuria or hematuria Musculoskeletal Musculoskeletal: Reports back pain Integumentary Denies rash Neurologic Neurologic: Denies headache(s) Hematologic/Lymphatic Hematologic/Lymphatic: Denies easy bleeding or easy bruising EXAM Physical Exam Const Vital Signs: 03/21/22 01:48 Temperature 98.2 F Temperature Source Oral Pulse Rate 91 Respiratory Rate 16 Blood Pressure 163/99 H Blood Pressure Mean 120 Pulse Ox 95 Oxygen Delivery Method Room Air Positive well nourished and well developed General Appearance ED: well developed Eyes PERRL and EOMs intact bilaterally Neck supple Resp normal respiratory effort and clear to auscultation bilaterally Cardio regular rate and regular rhythm Rate: other Other Details: Radial pulses are plus 2 out of 4 bilaterally they are equal and symmetric Patient has a grade 3 out of 6 holosystolic murmur which she states is chronic in nature GI non-distended GI Narrative: Abdomen is soft and nondistended with normoactive bowel sounds. There is mild pain on palpation along the right upper and lower abdomen diffusely without voluntary guarding or rigidity. No pulsatile mass or fluid wave Auscultation: normoactive bowel sounds Palpation: soft Back/Spine Back/Spine Narrative: Positive right CVA pain Extremity normal to inspection Neuro oriented x3 and CN's II-XII intact bilaterally Sensorium / Orientation: alert Psych mental status grossly normal Skin no rashes or lesions noted Skin Narrative: No overlying soft tissue changes to suggest trauma or infection MDM MDM MDM Narrative Medical decision making narrative: Patient presented to the ER hypertensive but he has a past medical history of this and is in pain so it is to be expected. Otherwise his vitals are stable. His history and exam is consistent with kidney stone. Basic blood work was obtained and this shows no signs of urosepsis or acute kidney injury. Noncontrast CAT scan confirmed a stone that is 1.3 cm in size at the right UPJ. There is moderate hydronephrosis and fat stranding around the kidney associated with this. As the patient does not have a fever or white count and his urine shows no bacteria I feel the fat stranding is related to the hydronephrosis and not infection and therefore elected not to start the patient on antibiotics. The patient was given morphine and Toradol and reported improvement of his pain down to a value of 3. Therefore at this time as he does not have changes to suggest urosepsis or acute kidney injury and his pain has been improved I do not feel there is need to emergently contact urology. Patient can be discharged with symptomatic medications and will follow-up with urology to discuss need for further treatment options such as stenting or lithotripsy. Lab Data Attestation: I reviewed the patient's lab results. Labs: Laboratory Results - last 24 hr 03/21/22 03/21/22 03/21/22 02:00 02:15 02:15 WBC 10.6 RBC 4.03 L Hgb 11.9 L Hct 36.2 L MCV 89.8 MCH 29.5 MCHC 32.9 RDW Std Deviation 42.1 RDW Coeff of Marta 12.8 Plt Count 244 MPV 9.3 Immature Gran % (Auto) 0.600 Neut % (Auto) 73.4 H Lymph % (Auto) 12.5 L Arthur % (Auto) 9.8 Eos % (Auto) 3.2 Baso % (Auto) 0.5 Absolute Neuts (auto) 7.8 H Absolute Lymphs (auto) 1.33 Nucleated RBC % 0 Sodium 137 Potassium 3.6 Chloride 102 Carbon Dioxide 25.0 Anion Gap 10 BUN 27 H Creatinine 1.33 H Estim Creat Clear Calc 44.21 Est GFR (MDRD) Af Amer 66 Est GFR (MDRD) Non-Af 55 L BUN/Creatinine Ratio 20.3 H Glucose 128 H Calcium 9.3 Urine Color Yellow Urine Clarity Clear Urine pH 6.0 Ur Specific [place] 1.015 Urine Protein Negative Urine Glucose (UA) Normal Urine Ketones Negative Urine Occult Blood 10 H Urine Nitrite Negative Urine Bilirubin Negative Urine Urobilinogen Normal Ur Leukocyte Esterase Negative Urine RBC 0 SEEN Urine WBC 0 SEEN Ur Squamous Epith Cells 0 SEEN Urine Bacteria 0 SEEN Urine Mucus 0 SEEN Radiography Diagnostic Testing: Clinical Impression(s) from Imaging Studies Abdomen/Pelvis CT 03/21/22 02:11 IMPRESSION: 1.3 cm obstructing calculus of the right UPJ with moderate hydronephrosis. Stranding about the right kidney may be postobstructive but would correlate clinically to exclude any superimposed infection. Electronically Signed: Otoniel Dubon MD at 2:48 EST Reading Location ID and State: [facility] / [place] Tel , Service support , Discharge Plan Triage Chief Complaint: Flank Pain ED Provider: Otoniel Ellis Dx/Rx/DC Orders Clinical Impression: Kidney stone on right side, Renal colic Instructions: ED Kidney Stone w/ Colic Prescriptions: New oxycodone-acetaminophen [Percocet] 5-325 mg tablet 1 tab PO Q6H PRN (Reason: pain) 3 Days Qty: 12 0RF ketorolac 10 mg tablet 10 mg PO Q6H PRN (Reason: pain) 5 Days Qty: 20 0RF No Action lisinopril-hydrochlorothiazide 20-25 mg tablet 1 tab PO DAILY metoprolol succinate 25 MG tablet 25 mg PO DAILY Label Comments: blood pressure/heart acidophilus-pectin, citrus 1 TABLET tablet 1 tab PO DAILY Label Comments: probiotic multivitamin with folic acid [Thera] 1 TABLET tablet 1 tab PO DAILY Label Comments: supplement tamsulosin 0.4 mg capsule 1 tab PO DAILY cholecalciferol (vitamin D3) 1,250 MCG capsule 1,250 mcg PO DAILY ondansetron [ondansetron] 4 MG tablet 4 mg PO Q6H PRN PRN (Reason: Nausea) Qty: 10 0RF prednisone 5 mg tablet 5 mg PO DAILY Label Comments: TAKE 1 TABLET BY MOUTH ONCE DAILY omeprazole 10 mg capsule,delayed release(DR/EC) 20 mg PO DAILY amlodipine 10 mg tablet 10 mg PO DAILY Label Comments: TAKE 1 TABLET BY MOUTH ONCE DAILY oxybutynin chloride 5 mg tablet extended release 24hr 5 mg PO DAILY finasteride 5 mg tablet 5 mg PO DAILY Primary Care Provider: Darrin Ramirez Referrals: Darrin Ramirez MD [Primary Care Provider] - Cleve Mejia MD [Med Staff - Active Staff] - Activity Restrictions/Additional Instructions: Please follow-up with urology to discuss need for stenting versus lithotripsy based on the large size of your stone. Continue to take your Flomax as this may help you pass the stone. Please return to the ER if you develop a fever over 100.4 or your pain is not controlled with the prescribed medications. Disposition Disposition: Home, Self Care
[2022-03-21] MEDS: Ketorolac 15 MG/ML Vial IV (03:15)
[2022-03-21 03:38] VITALS: BP 158/74; PULSE 74; RESP 16; O2SAT 95
== END 2022-03-21 03:50 | disposition home or self-care (01) ==
PROVIDERS: Emergency Provider Emergency Medicine; PCP Family Medicine; Visit Provider Emergency Medicine
DX: N13.2 Hydronephrosis with renal and ureteral calculous obstruction (principal); E78.5 Hyperlipidemia, unspecified; I10 Essential (primary) hypertension; N23 Unspecified renal colic; Z79.52 Long term (current) use of systemic steroids
CPT/HCPCS: 74176; 80048; 81001; 85025; 96374; 96375; 99283; J7030; A4216; J2405

== ENCOUNTER 2022-03-23 12:39 | Day surgery (SDC) | payer MEDICARE, SELFPAY ==
--- NOTE | 2022-03-23 07:37 | HP.PCM_ITS ---
HPI - General HPI Narrative KEENA FRIED, is a 81 M who presents for treatment of a large stone in the right kidney with shockwave lithotripsy and stent placement [facility] Medical History (Updated 03/22/22 @ 10:29 by Adelina Salmeron) Abnormal electrocardiogram Ambulates with cane Arthritis Back pain BPH (benign prostatic hyperplasia) Cardiology follow-up encounter Chronic back pain Depression Diverticulosis Easy bruising Essential hypertension Gastric reflux GERD (gastroesophageal reflux disease) History of echocardiogram History of edema History of steroid therapy Hyperlipidemia Hypertension Inguinal hernia Leg cramps Loss of hearing Lung nodule Multiple premature ventricular complexes Non-smoker Nonrheumatic aortic (valve) stenosis Obesity Osteoarthritis Prostate cancer metastatic to bone Prostate disease Restless legs Wears glasses Wears hearing aid Home Medications acidophilus 25 million cell-pectin, citrus 100 mg tablet 1 tab PO DAILY 03/12/14 [History Last Taken Unknown] metoprolol succinate 25 mg tablet,extended release 24 hr 25 mg PO DAILY 03/12/14 [History Last Taken 03/25/14 05:00] multivitamin with folic acid 400 mcg tablet (Thera) 1 tab PO DAILY 03/12/14 [History Last Taken Unknown] tamsulosin 0.4 mg capsule 1 tab PO DAILY 12/12/19 [History Last Taken Unknown] lisinopril 20 mg-hydrochlorothiazide 25 mg tablet 1 tab PO DAILY 01/27/21 [History Last Taken Unknown] ondansetron 4 mg disintegrating tablet 4 mg PO Q6H PRN PRN Nausea #10 tabs 09/07/21 [Rx Last Taken Unknown] amlodipine 10 mg tablet 10 mg PO DAILY 03/21/22 [History Last Taken Unknown] finasteride 5 mg tablet 5 mg PO DAILY 03/21/22 [History Last Taken Unknown] ketorolac 10 mg tablet 10 mg PO Q6H PRN pain 5 days #20 tabs 03/21/22 [Rx Last Taken Unknown] omeprazole 10 mg capsule,delayed release 20 mg PO DAILY 03/21/22 [History Last Taken Unknown] oxybutynin chloride 5 mg tablet,extended release 24 hr 5 mg PO DAILY 03/21/22 [History Last Taken Unknown] oxycodone-acetaminophen 5 mg-325 mg tablet (Percocet) 1 tab PO Q6H PRN pain 3 days #12 tabs 03/21/22 [Rx Last Taken Unknown] prednisone 5 mg tablet 5 mg PO DAILY 03/21/22 [History Last Taken Unknown] Allergy/AdvReac Type Severity Reaction Status Date / Time No Known Allergies Allergy Verified 03/22/22 10:17 Family History Father Heart disease Surgical History (Updated 03/22/22 @ 10:29 by Adelina Salmeron) Amputated toe History of carpal tunnel release History of cystoscopy History of inguinal hernia repair History of left knee replacement History of total knee arthroplasty Social History (Updated 09/07/21 @ 11:[address] Marty Bender, DO) Smoking Status: Never smoker substance use type: does not use
--- NOTE | 2022-03-23 12:45 | RAD_ITS ---
STUDY: X-RAY - ABDOMEN/PELVIS REASON FOR EXAM: Male, 81 years old. PREOP RIGHT KIDNEY STONE TECHNIQUE: 2 frontal images of the abdomen were obtained. COMPARISON: CT dated 03/21/2022 FINDINGS: Normal visualized lung bases. There is an unremarkable bowel gas pattern. There is no demonstrated free abdominal air. There is a 3 mm calcific density within the expected region of the right kidney. There is a 11 x 15 mm calcification within the expected region of the proximal right ureter. There is evidence of postsurgical changes of the right lower anterior abdominal wall. There are degenerative changes of the lower lumbar spine. RAD/Abdomen Single View IMPRESSION: 11 x 15 mm calculus within the expected region of the right proximal ureter. 3 mm right renal calculus. Nonspecific bowel gas pattern. Electronically Signed: Patty Arboleda MD at 13:03 EST ,
[2022-03-23 13:20] VITALS: BP 131/85; PULSE 82; RESP 16; TEMP 36.6; O2SAT 95; BMI 36.0
[2022-03-23] MEDS: Lactated Ringers 1,000 ML 15 ML IV (13:26)
--- NOTE | 2022-03-23 14:28 | DCINST_ITS ---
Discharge Instructions Diet Discharge Diet: No restrictions, Light diet - advance as tolerated and Soft diet Activity Discharge Activity: Return to Normal Activity Follow Up Care Please Follow Up With: Cleve Mejia MD When: 2 weeks. Test Results: Test results from this visit will be discussed in further detail at your follow- up appointment, if applicable. Discharge Plan Admission Primary Reason for Your Visit: right stent placement and right ESWL Attending Provider: Cleve Mejia Primary Care Provider: Darrin Ramirez Discharge Orders/Prescriptions Prescriptions: New ciprofloxacin HCl [Cipro] 500 mg tablet 500 mg PO BID Qty: 6 0RF oxycodone-acetaminophen 5-325 mg tablet 1 tab PO Q6H PRN (Reason: pain) 7 Days Qty: 14 0RF Continued lisinopril-hydrochlorothiazide 20-25 mg tablet 1 tab PO DAILY metoprolol succinate 25 MG tablet 25 mg PO DAILY Label Comments: blood pressure/heart acidophilus-pectin, citrus 1 TABLET tablet 1 tab PO DAILY Label Comments: probiotic multivitamin with folic acid [Thera] 1 TABLET tablet 1 tab PO DAILY Label Comments: supplement tamsulosin 0.4 mg capsule 1 tab PO DAILY ondansetron 4 MG tablet 4 mg PO Q6H PRN PRN (Reason: Nausea) Qty: 10 0RF prednisone 5 mg tablet 5 mg PO DAILY Label Comments: TAKE 1 TABLET BY MOUTH ONCE DAILY omeprazole 10 mg capsule,delayed release(DR/EC) 20 mg PO DAILY amlodipine 10 mg tablet 10 mg PO DAILY Label Comments: TAKE 1 TABLET BY MOUTH ONCE DAILY oxybutynin chloride 5 mg tablet extended release 24hr 5 mg PO DAILY finasteride 5 mg tablet 5 mg PO DAILY oxycodone-acetaminophen [Percocet] 5-325 mg tablet 1 tab PO Q6H PRN (Reason: pain) 3 Days Qty: 12 0RF ketorolac 10 mg tablet 10 mg PO Q6H PRN (Reason: pain) 5 Days Qty: 20 0RF Referrals / Follow Up: Darrin Ramirez MD [Primary Care Provider] - Cleve Mejia MD [Med Staff - Active Staff] - Disposition Disposition (needs filled in before D/C Order can be placed): Home, Self Care
--- NOTE | 2022-03-23 14:28 | PCM.OPRPT ---
Report of Operation Date of Procedure: 03/23/22 Pre-Operative Diagnosis: Right kidney stone Post-Operative Diagnosis: Same Surgery/Procedure Performed:: Cystoscopy right stent placement and right extracorporeal shockwave lithotripsy Description of Surgical Findings:: Patient presents to the hospital for treatment of a kidney stone with shockwave lithotripsy. In the preoperative area and x-ray was done to confirm the location of the stone. The x-ray was reviewed and the stone location was reviewed. In the preoperative setting I spoke with the patient regarding the treatment of the stone how the treatment would be conducted and the expectations after surgery. The patient understands there is a risk of bleeding and infection. Also discussed the very rare risk of hematoma or damage to the kidney. We also discussed the risk that the shockwave machine will fail to break the stone adequately and that the patient may need other surgical procedures. We also discussed the possibility that the patient may need a stent after the procedure. After reviewing the procedure with the patient, the patient is signed the consent form all the patient's questions were addressed and was taken back to the operating room for treatment of a kidney stone. Patient was taken back to the operating room, patient was identified by the nursing staff, we identified the side of the treatment and the patient side of treatment had been marked by my initials. The patient underwent general anesthetic and was placed supine on the lithotripter table. The urethra and genitals were prepped and draped in usual sterile fashion. Using a 21 Cymraes rigid cystourethroscope the entire length of the urethra was normal then went into the bladder. Identified the trigone the left and right ureteral orifice. I then cannulated the right ureteral orifice and advanced a wire up into the kidney. I then backloaded a 5 Cymraes open ended catheter over the wire and injected contrast to delineate the anatomy. After the retrograde was performed I then used fluoroscopic images and guidance to advanced a wire up into the kidney and over the 0.038 glidewire I advanced a 6 Cymraes by 26 cm double pigtail stent. I then pulled the 0.038 Glidewire off and the stent coiled in the kidney bladder good position. The bladder was then drained. We confirmed the position of the stent by fluoroscopy. We then used fluoroscopy to identify the stone on the Right side at the UPJ. We then positioned the patient under the lithotripter and we used triangulation technique to identify the location of the stone and then we made sure that the stone was engaged in the F2 focal point of F2 Donier lithoprior machine. Once the patient was positioned appropriately and the stone was identified and placed in the F2 focal point of the lithotripter machine we then proceeded with shockwave lithotripsy. In the beginning the shockwave was delivered at a rate of 90 shocks per minute, we monitor the EKG for any ectopy. The power was slowly increased to 5 kV and subsequently at the 7 kV. We then proceeded with the treatment we move the therapy had around during the treatment to make sure the stone stayed in the F2 focal point during the entire treatment and after 3000 shockwaves were delivered to the stone under fluoroscopic guidance the treatment was completed. The patient was given instructions to call the office to make an a follow-up appointment with an xray to evaluate the success of the treatment, pateint understands that its possible the stones may need another procedure.At this point the patient's anesthetic was reversed patient was extubated and taken back to the PACU in stable condition. Surgeon: Cleve Mejia Type of Anesthesia: General Drains: stent right Admit VTE Documentation VTE Present on Admission: No VTE Mechan Device Prophylaxis: SCD's VTE Pharm Prophylaxis ordered?: No
[2022-03-23] MEDS: Cefazolin 2 GM in 0.9% Normal Saline 100 ML IV (14:35)
[2022-03-23] MEDS: Lactated Ringers 1,000 ML 100 ML IV (15:30)
[2022-03-23 15:46] VITALS: BP 129/74; BP 131/85; PULSE 71; RESP 16; TEMP 36.3; O2SAT 94
[2022-03-23 16:00] VITALS: BP 118/83; BP 131/85; PULSE 71; RESP 16; O2SAT 95
[2022-03-23] MEDS: Ketorolac 15 MG/ML Vial IV (16:14)
[2022-03-23 16:15] VITALS: BP 131/85; BP 142/99; PULSE 71; RESP 16; O2SAT 95
[2022-03-23 16:29] VITALS: BP 131/85; BP 153/85; PULSE 73; RESP 16; TEMP 36.1; O2SAT 93
[2022-03-23 17:06] VITALS: BP 131/85
== END 2022-03-23 17:24 | disposition home or self-care (01) ==
LOC: SDC 12:40 → AC 12:42
PROVIDERS: PCP Family Medicine; Referring Provider Urology; Visit Provider Urology
PROC: (CPT 50590; principal; 2022-03-23 14:40)
DX: N20.2 Calculus of kidney with calculus of ureter (principal); N40.0 Benign prostatic hyperplasia without lower urinary tract symptoms; K21.9 Gastro-esophageal reflux disease without esophagitis; I10 Essential (primary) hypertension; Z79.899 Other long term (current) drug therapy
CPT/HCPCS: 00873; 74018; J7120; C1769; C2617; J2405

== ENCOUNTER 2022-04-07 07:29 | Emergency (ER) | payer MEDICARE, SELFPAY ==
[2022-04-07 07:30] VITALS: BP 166/101; PULSE 108; RESP 18; TEMP 36.4; O2SAT 99; BMI 34.4
--- NOTE | 2022-04-07 07:39 | EDS_ITS ---
HPI History of Present Illness Chief Complaint: Complaint Detail of Chief Complaint: Inability urinate, gross hematuria with clots Informant: patient and spouse/S.O. Onset/Context/Timing Onset: Yesterday Context: Sudden Onset Timing: Continuous Quality: Gross hematuria and urinary retention Location: Current Severity: Severe Maximum Severity: Severe Worsened by: Inability to urinate Relieved by: Nothing Associated Symptoms Associated Symptoms: No constitutional symptoms Narrative Narrative: Patient is a 81-year-old male with history of essential hypertension, metastatic prostate cancer who presents because of inability urinate and gross hematuria with clots since yesterday. He was seen on March 21 and diagnosed with renal and ureteral stone. He underwent lithotripsy and placement of stent by Dr. Kevin Mejia on March 23. He has an appointment later this afternoon for removal of stent. He is not on an anticoagulant. He denies fever, chills night sweats. He does report flank pain. He also reports suprapubic discomfort and pressure. He states he is in pain. Prior similar symptoms: No Recent Illness/Hospitalization: Yes PFSH [facility] Medical History Abnormal electrocardiogram Ambulates with cane Arthritis Back pain BPH (benign prostatic hyperplasia) Cardiology follow-up encounter Chronic back pain Depression Diverticulosis Easy bruising Essential hypertension Gastric reflux GERD (gastroesophageal reflux disease) History of echocardiogram History of edema History of steroid therapy Hyperlipidemia Hypertension Inguinal hernia Leg cramps Loss of hearing Lung nodule Multiple premature ventricular complexes Non-smoker Nonrheumatic aortic (valve) stenosis Obesity Osteoarthritis Prostate cancer metastatic to bone Prostate disease Restless legs Wears glasses Wears hearing aid Home Medications acidophilus 25 million cell-pectin, citrus 100 mg tablet 1 tab PO DAILY 03/12/14 [History Last Taken Unknown] metoprolol succinate 25 mg tablet,extended release 24 hr 25 mg PO DAILY 03/12/14 [History Last Taken 03/23/22] multivitamin with folic acid 400 mcg tablet (Thera) 1 tab PO DAILY 03/12/14 [History Last Taken 03/23/22] tamsulosin 0.4 mg capsule 1 tab PO DAILY 12/12/19 [History Last Taken Unknown] lisinopril 20 mg-hydrochlorothiazide 25 mg tablet 1 tab PO DAILY 01/27/21 [History Last Taken 03/23/22] ondansetron 4 mg disintegrating tablet 4 mg PO Q6H PRN PRN Nausea #10 tabs 09/07/21 [Rx Last Taken Unknown] amlodipine 10 mg tablet 10 mg PO DAILY 03/21/22 [History Last Taken Unknown] finasteride 5 mg tablet 5 mg PO DAILY 03/21/22 [History Last Taken Unknown] ketorolac 10 mg tablet 10 mg PO Q6H PRN pain 5 days #20 tabs 03/21/22 [Rx Last Taken Unknown] omeprazole 10 mg capsule,delayed release 20 mg PO DAILY 03/21/22 [History Last Taken 03/23/22] oxybutynin chloride 5 mg tablet,extended release 24 hr 5 mg PO DAILY 03/21/22 [History Last Taken Unknown] oxycodone-acetaminophen 5 mg-325 mg tablet (Percocet) 1 tab PO Q6H PRN pain 3 days #12 tabs 03/21/22 [Rx Last Taken 03/23/22] prednisone 5 mg tablet 5 mg PO DAILY 03/21/22 [History Last Taken Unknown] ciprofloxacin HCl 500 mg tablet (Cipro) 500 mg PO BID #6 tabs 03/23/22 [Rx Last Taken Unknown] oxycodone-acetaminophen 5 mg-325 mg tablet 1 tab PO Q6H PRN pain 7 days #14 tabs 03/23/22 [Rx Last Taken Unknown] Allergy/AdvReac Type Severity Reaction Status Date / Time No Known Allergies Allergy Verified 03/23/22 13:18 Family History Father Heart disease Surgical History Amputated toe History of carpal tunnel release History of cystoscopy History of inguinal hernia repair History of left knee replacement History of total knee arthroplasty Social History (Updated 04/07/22 @ 07:[address] Toney Hall MD) household members: spouse Smoking Status: Never smoker substance use type: does not use ROS ROS ED Constitutional Constitutional ED: Denies chills, fever(s), subjective, sweats or weight loss Eyes Eyes: Denies blurry vision or change in vision ENT ENT ED: Denies ear pain, rhinorrhea or sore throat Cardiovascular Cardiovascular: Denies chest pain or palpitations Respiratory/Chest Respiratory/Chest: Reports dyspnea; Denies cough or dyspnea on exertion Gastrointestinal Gastrointestinal: Reports abdominal pain; Denies diarrhea, melena, nausea or vomiting Genitourinary Genitourinary ED: Reports hematuria; Denies dysuria or urinary frequency Musculoskeletal Musculoskeletal: Denies arthralgias, back pain, myalgias or neck pain Integumentary Denies Abrasions or rash Neurologic Neurologic: Denies headache(s) or paresthesias Hematologic/Lymphatic Hematologic/Lymphatic: Reports systems reviewed and no addt'l complaints, except as documented; Denies easy bleeding or easy bruising EXAM Physical Exam Const Vital Signs: 04/07/22 07:30 Temperature 97.6 F L Temperature Source Temporal Pulse Rate 108 H Respiratory Rate 18 Blood Pressure 166/101 H Blood Pressure Mean 122 Pulse Ox 99 Oxygen Delivery Method Room Air Positive well nourished and well developed Constitutional Narrative: Patient appears uncomfortable. He is tachycardic and tachypneic. General Appearance ED: well developed and pallor; Negative for cyanotic or diaphoretic HEENT Reports moist mucous membranes HEENT Narrative: Head is atraumatic normocephalic. Ears normal. Nares patent. Posterior phar ynx out erythema or exudate. Eyes PERRL and EOMs intact bilaterally General Eye ED: Negative for pale conjunctiva or scleral icterus Neck no lymphadenopathy, supple and no JVD Chest Wall inspection of chest normal and palpation of chest normal Resp normal respiratory effort and clear to auscultation bilaterally Cardio regular rhythm, S1 normal heart sound, S2 normal heart sound and no murmurs Rate: tachycardic GI non-distended and no masses; Negative for non-tender or hepatosplenomegaly Auscultation: hypoactive bowel sounds Palpation: soft and tender suprapubic Narrative: Circumcised male with bright red blood noted at the meatus with clots. Back/Spine no CVA tenderness Extremity normal to inspection Neuro oriented x3, CN's II-XII intact bilaterally and no sensory deficits noted Sensorium / Orientation: alert Motor Exam: strength 5/5 throughout Psych mental status grossly normal Skin no rashes or lesions noted and no wounds General Skin Exam: pallor; Negative for jaundice MDM MDM MDM Narrative Medical decision making narrative: Since patient does not urinate 24 hours we will obtain BMP to assess renal function. CBC was obtained to assess H&H and platelet count. Three-way Lockwood was ordered for irrigation. Once laboratory studies are available for review and patient has had the Lockwood placed and irrigated we will contact Dr. Mejia his urologist Lab Data Lab results narrative: Hemoglobin is down 1 g since the middle of March. Creatinine has improved from prior study. Labs: Laboratory Results - last 24 hr 04/07/22 04/07/22 07:59 07:59 WBC 8.8 RBC 3.73 L Hgb 10.9 L Hct 33.6 L MCV 90.1 MCH 29.2 MCHC 32.4 RDW Std Deviation 41.4 RDW Coeff of Marta 12.8 Plt Count 247 MPV 9.1 Immature Gran % (Auto) 0.300 Neut % (Auto) 70.3 H Lymph % (Auto) 14.2 L [place] % (Auto) 11.8 H Eos % (Auto) 2.9 Baso % (Auto) 0.5 Absolute Neuts (auto) 6.2 Absolute Lymphs (auto) 1.25 Nucleated RBC % 0 Sodium 136 Potassium 3.7 Chloride 102 Carbon Dioxide 25.0 Anion Gap 9 BUN 24 H Creatinine 1.15 Estim Creat Clear Calc 51.14 Est GFR (MDRD) Af Amer 78 Est GFR (MDRD) Non-Af 65 BUN/Creatinine Ratio 20.9 H Glucose 112 H Calcium 8.7 Treatment and Re-Evaluation Narrative: I was informed that large clots were irrigated. His urine is a light red color at this time. We will contact his urologist, Dr. Mejia. Patient was reassessed by me at 1055. Patient has gross hematuria. There is no clots. There is no evidence of obstruction as time. Plan is to discharge and patient to keep his scheduled appointment for this afternoon Discharge Plan Triage Chief Complaint: Complaint ED Provider: Toney Hall Dx/Rx/DC Orders Clinical Impression: Acute urinary retention, Prostate cancer metastatic to bone, Hyperlipidemia, Essential hypertension, Hematuria, gross Instructions: ED Lockwood Catheter, Care, ED Hematuria Prescriptions: No Action lisinopril-hydrochlorothiazide 20-25 mg tablet 1 tab PO DAILY metoprolol succinate 25 MG tablet 25 mg PO DAILY Label Comments: blood pressure/heart acidophilus-pectin, citrus 1 TABLET tablet 1 tab PO DAILY Label Comments: probiotic multivitamin with folic acid [Thera] 1 TABLET tablet 1 tab PO DAILY Label Comments: supplement tamsulosin 0.4 mg capsule 1 tab PO DAILY ondansetron 4 MG tablet 4 mg PO Q6H PRN PRN (Reason: Nausea) Qty: 10 0RF prednisone 5 mg tablet 5 mg PO DAILY Label Comments: TAKE 1 TABLET BY MOUTH ONCE DAILY omeprazole 10 mg capsule,delayed release(DR/EC) 20 mg PO DAILY amlodipine 10 mg tablet 10 mg PO DAILY Label Comments: TAKE 1 TABLET BY MOUTH ONCE DAILY oxybutynin chloride 5 mg tablet extended release 24hr 5 mg PO DAILY finasteride 5 mg tablet 5 mg PO DAILY oxycodone-acetaminophen [Percocet] 5-325 mg tablet 1 tab PO Q6H PRN (Reason: pain) 3 Days Qty: 12 0RF ketorolac 10 mg tablet 10 mg PO Q6H PRN (Reason: pain) 5 Days Qty: 20 0RF ciprofloxacin HCl [Cipro] 500 mg tablet 500 mg PO BID Qty: 6 0RF oxycodone-acetaminophen 5-325 mg tablet 1 tab PO Q6H PRN (Reason: pain) 7 Days Qty: 14 0RF Primary Care Provider: Darrin Ramirez Referrals: Darrin Ramirez MD [Primary Care Provider] - Cleve Mejia MD [Med Staff - Active Staff] - Keep [place] appointment Disposition Disposition: Home, Self Care
[2022-04-07 08:04] LABS: Absolute Lymphocyte Count 1.25 X10^3/uL (0.83-4.51); Absolute Neutrophil Count 6.2 X10^3/uL (2.0-7.7); Basophil# 0.04 X10^3/uL; Basophil% 0.5 % (0-1); Eosinophil# 0.26 X10^3/uL; Eosinophils% 2.9 % (0-5); Hematocrit 33.6 % (40-54); Hemoglobin 10.9 g/dL (13.0-16.5); Lymphocyte # 1.25 X10^3/ul (0.83-4.51); Lymphocyte % 14.2 % (19-41); Mean Corp Hgb Conc 32.4 g/dL (32-36); Mean Corpuscular Hgb 29.2 pg (27.0-32.0); Mean Corpuscular Volume 90.1 fL (80-94); Mean Platelet Vol. 9.1 fl (6.2-12.0); Monocyte# 1.04 X10^3/uL; Monocyte% 11.8 % (0-10); NRBC Flagged by Analyzer 0 % (0-5); Neutrophil % 70.3 % (47-70); Platelet Count 247 K/mm3 (150-450); RBC Distribution Width CV 12.8 % (11.6-14.6); RBC Distribution Width SD 41.4 fl (35.1-43.9); Red Blood Count 3.73 M/mm3 (4.6-6.2); White Blood Count 8.8 K/mm3 (4.4-11.0)
[2022-04-07 08:14] LABS: Anion Gap 9 (5-15); BUN 24 mg/dL (7-18); BUN/Creat Ratio 20.9 RATIO (10-20); Calcium,Total 8.7 mg/dL (8.5-10.1); Chloride 102 mmol/L (98-107); Creatinine, Serum 1.15 mg/dL (0.70-1.30); EST Glomerular Filtration Rate 65 mL/min (>60); Est Glom Filt Rate - Afr Amer 78 mL/min (>60); Estimated Creatinine Clearance 51.14 ml/min; Glucose 112 mg/dL (74-106); Potassium 3.7 mmol/L (3.5-5.1); Sodium Level 136 mmol/L (136-145)
[2022-04-07] MEDS: Morphine 4 MG/ML Syringe IV (08:15)
[2022-04-07] MEDS: Ondansetron 4 MG/2 ML Vial IV (08:15)
[2022-04-07 11:12] VITALS: BP 138/88; PULSE 74; RESP 16; O2SAT 99
== END 2022-04-07 11:12 | disposition home or self-care (01) ==
PROVIDERS: Emergency Provider Emergency Medicine; PCP Family Medicine; Visit Provider Emergency Medicine
DX: R33.9 Retention of urine, unspecified (principal); C79.51 Secondary malignant neoplasm of bone; C61 Malignant neoplasm of prostate; R10.9 Unspecified abdominal pain; E78.5 Hyperlipidemia, unspecified; I10 Essential (primary) hypertension; R31.0 Gross hematuria
CPT/HCPCS: 96375; 99283; 96374; 80048; 85025; A4216; J2405

== ENCOUNTER 2022-04-08 04:30 | Emergency (ER) | payer MEDICARE, SELFPAY ==
[2022-04-08 04:31] VITALS: BP 124/86; PULSE 95; RESP 16; TEMP 37; O2SAT 93; BMI 37.1
--- NOTE | 2022-04-08 04:53 | EX.ED.DYSGE1 ---
HPI History of Present Illness Chief Complaint: Complaint Narrative Narrative: 81-year-old male here for concern for urinary retention. Lower abdominal TTP. Patient states symptoms are constant severe without alleviating exacerbating features. Old chart reviewed: Seen yesterday catheter removed by urology. [facility] Medical History Abnormal electrocardiogram Ambulates with cane Arthritis Back pain BPH (benign prostatic hyperplasia) Cardiology follow-up encounter Chronic back pain Depression Diverticulosis Easy bruising Essential hypertension Gastric reflux GERD (gastroesophageal reflux disease) History of echocardiogram History of edema History of steroid therapy Hyperlipidemia Hypertension Inguinal hernia Leg cramps Loss of hearing Lung nodule Multiple premature ventricular complexes Non-smoker Nonrheumatic aortic (valve) stenosis Obesity Osteoarthritis Prostate cancer metastatic to bone Prostate disease Restless legs Wears glasses Wears hearing aid Home Medications acidophilus 25 million cell-pectin, citrus 100 mg tablet 1 tab PO DAILY 03/12/14 [History Last Taken Unknown] metoprolol succinate 25 mg tablet,extended release 24 hr 25 mg PO DAILY 03/12/14 [History Last Taken 03/23/22] multivitamin with folic acid 400 mcg tablet (Thera) 1 tab PO DAILY 03/12/14 [History Last Taken 03/23/22] tamsulosin 0.4 mg capsule 1 tab PO DAILY 12/12/19 [History Last Taken Unknown] lisinopril 20 mg-hydrochlorothiazide 25 mg tablet 1 tab PO DAILY 01/27/21 [History Last Taken 03/23/22] ondansetron 4 mg disintegrating tablet 4 mg PO Q6H PRN PRN Nausea #10 tabs 09/07/21 [Rx Last Taken Unknown] amlodipine 10 mg tablet 10 mg PO DAILY 03/21/22 [History Last Taken Unknown] finasteride 5 mg tablet 5 mg PO DAILY 03/21/22 [History Last Taken Unknown] ketorolac 10 mg tablet 10 mg PO Q6H PRN pain 5 days #20 tabs 03/21/22 [Rx Last Taken Unknown] omeprazole 10 mg capsule,delayed release 20 mg PO DAILY 03/21/22 [History Last Taken 03/23/22] oxybutynin chloride 5 mg tablet,extended release 24 hr 5 mg PO DAILY 03/21/22 [History Last Taken Unknown] oxycodone-acetaminophen 5 mg-325 mg tablet (Percocet) 1 tab PO Q6H PRN pain 3 days #12 tabs 03/21/22 [Rx Last Taken 03/23/22] prednisone 5 mg tablet 5 mg PO DAILY 03/21/22 [History Last Taken Unknown] ciprofloxacin HCl 500 mg tablet (Cipro) 500 mg PO BID #6 tabs 03/23/22 [Rx Last Taken Unknown] oxycodone-acetaminophen 5 mg-325 mg tablet 1 tab PO Q6H PRN pain 7 days #14 tabs 03/23/22 [Rx Last Taken Unknown] cephalexin 500 mg capsule 500 mg PO Q8H #15 caps 04/08/22 [Rx Last Taken Unknown] Allergy/AdvReac Type Severity Reaction Status Date / Time No Known Allergies Allergy Verified 03/23/22 13:18 Family History Father Heart disease Surgical History Amputated toe History of carpal tunnel release History of cystoscopy History of inguinal hernia repair History of left knee replacement History of total knee arthroplasty Social History household members: spouse Smoking Status: Never smoker substance use type: does not use ROS ROS ED ROS Narrative Constitutional: Denies fever HEENT: Denies sore throat Neck: Denies neck pain Cardiovascular: Denies chest pain, syncope Respiratory: Denies shortness of breath GI: Denies nausea vomiting, endorses lower abdominal pain : Endorses urinary retention Musculoskeletal: Denies muscle or joint pain Neurologic: Denies numbness weakness or loss of sensation Skin denies rash EXAM Physical Exam Narrative Exam Narrative: Nursing triage notes reviewed, Vital signs reviewed Constitutional: please see mdm HENT: MMM Eyes: Pupils equal round and reactive to light, Extraocular muscles intact Neck: No stridor, no JVD, full neck ROM Lungs: Clear to auscultation, No wheezing or rales. No increased work of breathing, no conversational dyspnea, no accessory muscle use, no nasal flaring. No respiratory distress noted Heart: Regular rate and rhythm, No murmurs, No rubs and No gallops, 2+ distal pulses (radial, femoral, posterior tibial) in all extremities Abdomen: Soft, suprapubic TTP, suprapubic fullness, rigidity, rebound or guarding, no obvious peritoneal signs, no palpable pulsatile abdominal masses, no auscultated abdominal bruit : No CVAT Extremities: No edema Neuro: No focal neurological deficits, cranial nerves II through XII intact, 5/5 strength in all extremities. Intact sensation to light touch in all extremities, 2+ reflexes bilateral patella dens. Normal gait. No ataxia. Skin: No rash or lesions noted Const Vital Signs: 04/08/22 04:31 Temperature 98.6 F Temperature Source Temporal Pulse Rate 95 Respiratory Rate 16 Blood Pressure 124/86 H Blood Pressure Mean 98 Pulse Ox 93 Oxygen Delivery Method Room Air MDM MDM MDM Narrative Medical decision making narrative: 81-year-old male here for concern for urinary retention. Patient had 1000 cc of urine in his bladder this is consistent with urinary retention r. Catheter placed, gave Keflex for antimicrobial prophylaxis and encouraged urology follow-up gave. I gave strict return precautions and follow-up instructions as well. Discharge Plan Triage Chief Complaint: Complaint ED Provider: Bimal Lund Dx/Rx/DC Orders Clinical Impression: Urinary retention Instructions: ED Urinary Retention, Male Prescriptions: New cephalexin 500 mg capsule 500 mg PO Q8H Qty: 15 0RF No Action lisinopril-hydrochlorothiazide 20-25 mg tablet 1 tab PO DAILY metoprolol succinate 25 MG tablet 25 mg PO DAILY Label Comments: blood pressure/heart acidophilus-pectin, citrus 1 TABLET tablet 1 tab PO DAILY Label Comments: probiotic multivitamin with folic acid [Thera] 1 TABLET tablet 1 tab PO DAILY Label Comments: supplement tamsulosin 0.4 mg capsule 1 tab PO DAILY ondansetron 4 MG tablet 4 mg PO Q6H PRN PRN (Reason: Nausea) Qty: 10 0RF prednisone 5 mg tablet 5 mg PO DAILY Label Comments: TAKE 1 TABLET BY MOUTH ONCE DAILY omeprazole 10 mg capsule,delayed release(DR/EC) 20 mg PO DAILY amlodipine 10 mg tablet 10 mg PO DAILY Label Comments: TAKE 1 TABLET BY MOUTH ONCE DAILY oxybutynin chloride 5 mg tablet extended release 24hr 5 mg PO DAILY finasteride 5 mg tablet 5 mg PO DAILY oxycodone-acetaminophen [Percocet] 5-325 mg tablet 1 tab PO Q6H PRN (Reason: pain) 3 Days Qty: 12 0RF ketorolac 10 mg tablet 10 mg PO Q6H PRN (Reason: pain) 5 Days Qty: 20 0RF ciprofloxacin HCl [Cipro] 500 mg tablet 500 mg PO BID Qty: 6 0RF oxycodone-acetaminophen 5-325 mg tablet 1 tab PO Q6H PRN (Reason: pain) 7 Days Qty: 14 0RF Primary Care Provider: Darrin Ramirez Referrals: Darrin Ramirez MD [Primary Care Provider] - Cleve Mejia MD [Med Staff - Active Staff] - Activity Restrictions/Additional Instructions: Please return if your catheter stops draining or if develop worsening abdominal pain Disposition Disposition: Home, Self Care Discharge Date/Time: 04/08/22 05:44
[2022-04-08] MEDS: Lidocaine Jelly 2% 20 ML Syringe (URO-JET) 1 APPLIC TOPICAL (04:58)
[2022-04-08] MEDS: Cephalexin 250 MG Capsule 500 MG PO (05:42)
== END 2022-04-08 05:44 | disposition home or self-care (01) ==
PROVIDERS: Emergency Provider Emergency Medicine; PCP Family Medicine; Visit Provider Emergency Medicine
DX: R33.9 Retention of urine, unspecified (principal); I10 Essential (primary) hypertension; E78.5 Hyperlipidemia, unspecified
CPT/HCPCS: 51702; 99283

== ENCOUNTER 2022-04-10 15:54 | Inpatient (IN) | payer MEDICARE, SELFPAY ==
[2022-04-10] VITALS (7 sets, daily range): BP systolic 106–135; BP diastolic 56–97; PULSE 85–94; RESP 16–18; TEMP 36.4–37.2; O2SAT 94–99; BMI 34.4; BMI 36.3
--- NOTE | 2022-04-10 17:12 | EX.ED.DYSGE1 ---
HPI History of Present Illness Chief Complaint: Lockwood C/O Onset/Context/Timing Onset: Weeks (1) Context: Sudden Onset Timing: Intermittent Quality: Cramping spasm Location: Suprapubic Worsened by: Nothing Relieved by: Nothing Narrative Narrative: Patient presents with hematuria that became worse today. Patient states he has had intermittent spasm of his bladder and urinary retention over the past week. Patient had ureteral stents placed. Patient has been having some clots in his Lockwood catheter. Patient states that when he has urinary retention, he gets bladder spasms which are cramping in the suprapubic area. Patient states this pain is intermittent. Patient denies any nausea or vomiting. Patient denies any fevers or chills. [facility] Medical History Abnormal electrocardiogram Ambulates with cane Arthritis Back pain BPH (benign prostatic hyperplasia) Cardiology follow-up encounter Chronic back pain Depression Diverticulosis Easy bruising Essential hypertension Gastric reflux GERD (gastroesophageal reflux disease) History of echocardiogram History of edema History of steroid therapy Hyperlipidemia Hypertension Inguinal hernia Leg cramps Loss of hearing Lung nodule Multiple premature ventricular complexes Non-smoker Nonrheumatic aortic (valve) stenosis Obesity Osteoarthritis Prostate cancer metastatic to bone Prostate disease Restless legs Wears glasses Wears hearing aid Home Medications acidophilus 25 million cell-pectin, citrus 100 mg tablet 1 tab PO DAILY 03/12/14 [History Last Taken Unknown] metoprolol succinate 25 mg tablet,extended release 24 hr 25 mg PO DAILY 03/12/14 [History Last Taken 03/23/22] multivitamin with folic acid 400 mcg tablet (Thera) 1 tab PO DAILY 03/12/14 [History Last Taken 03/23/22] tamsulosin 0.4 mg capsule 1 tab PO DAILY 12/12/19 [History Last Taken Unknown] lisinopril 20 mg-hydrochlorothiazide 25 mg tablet 1 tab PO DAILY 01/27/21 [History Last Taken 03/23/22] ondansetron 4 mg disintegrating tablet 4 mg PO Q6H PRN PRN Nausea #10 tabs 09/07/21 [Rx Last Taken Unknown] amlodipine 10 mg tablet 10 mg PO DAILY 03/21/22 [History Last Taken Unknown] finasteride 5 mg tablet 5 mg PO DAILY 03/21/22 [History Last Taken Unknown] ketorolac 10 mg tablet 10 mg PO Q6H PRN pain 5 days #20 tabs 03/21/22 [Rx Last Taken Unknown] omeprazole 10 mg capsule,delayed release 20 mg PO DAILY 03/21/22 [History Last Taken 03/23/22] oxybutynin chloride 5 mg tablet,extended release 24 hr 5 mg PO DAILY 03/21/22 [History Last Taken Unknown] oxycodone-acetaminophen 5 mg-325 mg tablet (Percocet) 1 tab PO Q6H PRN pain 3 days #12 tabs 03/21/22 [Rx Last Taken 03/23/22] prednisone 5 mg tablet 5 mg PO DAILY 03/21/22 [History Last Taken Unknown] ciprofloxacin HCl 500 mg tablet (Cipro) 500 mg PO BID #6 tabs 03/23/22 [Rx Last Taken Unknown] oxycodone-acetaminophen 5 mg-325 mg tablet 1 tab PO Q6H PRN pain 7 days #14 tabs 03/23/22 [Rx Last Taken Unknown] cephalexin 500 mg capsule 500 mg PO Q8H #15 caps 04/08/22 [Rx Last Taken Unknown] Allergy/AdvReac Type Severity Reaction Status Date / Time No Known Allergies Allergy Verified 04/10/22 15:57 Family History Father Heart disease Surgical History Amputated toe History of carpal tunnel release History of cystoscopy History of inguinal hernia repair History of left knee replacement History of total knee arthroplasty Social History household members: spouse Smoking Status: Never smoker substance use type: does not use ROS ROS ED Constitutional Constitutional ED: Denies chills or fever(s) Eyes Eyes: Denies blurry vision or change in vision ENT ENT ED: Denies rhinorrhea or sore throat Cardiovascular Cardiovascular: Denies chest pain or palpitations Respiratory/Chest Respiratory/Chest: Denies cough or dyspnea Gastrointestinal Gastrointestinal: Reports abdominal pain; Denies nausea or vomiting Genitourinary Genitourinary ED: Reports hematuria; Denies dysuria Musculoskeletal Musculoskeletal: Denies back pain or neck pain Integumentary Denies abscess or rash Neurologic Neurologic: Denies headache(s) or weakness Allergic/Immunologic Allergic/Immunologic ED: Denies mouth swelling or urticaria EXAM Physical Exam Const Vital Signs: 04/10/22 15:55 04/10/22 17:00 Temperature 97.9 F 97.9 F Temperature Source Temporal Temporal Pulse Rate 94 94 Respiratory Rate 16 16 Blood Pressure 135/78 H 135/78 H Blood Pressure Mean 97 97 Pulse Ox 98 98 Oxygen Delivery Method Room Air Room Air Positive well nourished and well developed General Appearance ED: well developed and NAD HEENT Reports moist mucous membranes Neck supple and no JVD Resp normal respiratory effort and clear to auscultation bilaterally Cardio regular rate and regular rhythm GI normal to inspection, nondistended, normoactive bowel sounds, non-tender and non-distended Palpation: soft Extremity General Extremety ED: Yes edema; Negative for tenderness General Extremity: edema Neuro oriented x3, CN's II-XII intact bilaterally and no sensory deficits noted Sensorium / Orientation: alert Motor Exam: strength 5/5 throughout MDM MDM MDM Narrative Medical decision making narrative: CBC shows anemia with a hemoglobin of 7.2 hematocrit 22.5. PT with INR and PTT were within normal limits. Comprehensive metabolic profile showed a mild hypokalemia of 3.1. BUN and creatinine were within normal limits. BNP was normal at 93.8. The catheter was irrigated. There were several blood clots removed. Patient was initially feeling better and then started to develop pressure again. The catheter was irrigated again and more clots were removed. After this, a three-way catheter was placed and the bladder was irrigated with 2 L of saline. Patient was still passing some blood clots although the bleeding was improving. Patient started having more pain. Patient was given a dose of morphine. Case was discussed with Dr. Mejia. He recommended having the hospitalist admit the patient. He will see the patient in consultation for hematuria. Case was discussed with the hospitalist. He will admit the patient to his service. Patient and family understood and were agreeable with the plan. All questions were answered. Lab Data Attestation: I reviewed the patient's lab results. Labs: Laboratory Results - last 24 hr 04/10/22 04/10/22 04/10/22 Unknown Unknown Unknown WBC 7.7 RBC 2.46 L Hgb 7.2 L Hct 22.5 L MCV 91.5 MCH 29.3 MCHC 32.0 RDW Std Deviation 43.3 RDW Coeff of Marta 13.0 Plt Count 215 MPV 9.6 Immature Gran % (Auto) 0.500 Neut % (Auto) 67.3 Lymph % (Auto) 14.5 L [place] % (Auto) 11.6 H Eos % (Auto) 5.6 H Baso % (Auto) 0.5 Absolute Neuts (auto) 5.2 Absolute Lymphs (auto) 1.12 Nucleated RBC % 0 PT 13.8 INR 1.1 APTT 27.1 Sodium 137 Potassium 3.1 L Chloride 104 Carbon Dioxide 27.0 Anion Gap 6 BUN 16 Creatinine 0.68 L Estim Creat Clear Calc 58.81 Est GFR (MDRD) Af Amer 142 Est GFR (MDRD) Non-Af 118 BUN/Creatinine Ratio 23.4 H Glucose 95 Calcium 8.5 Total Bilirubin 0.30 AST 15 ALT 17 Alkaline Phosphatase 64 B-Natriuretic Peptide Total Protein 6.7 Albumin 2.7 L Globulin 4.0 Albumin/Globulin Ratio 0.7 L 04/10/22 Unknown WBC RBC Hgb Hct MCV MCH MCHC RDW Std Deviation RDW Coeff of Marta Plt Count MPV Immature Gran % (Auto) Neut % (Auto) Lymph % (Auto) [place] % (Auto) Eos % (Auto) Baso % (Auto) Absolute Neuts (auto) Absolute Lymphs (auto) Nucleated RBC % PT INR APTT Sodium Potassium Chloride Carbon Dioxide Anion Gap BUN Creatinine Estim Creat Clear Calc Est GFR (MDRD) Af Amer Est GFR (MDRD) Non-Af BUN/Creatinine Ratio Glucose Calcium Total Bilirubin AST ALT Alkaline Phosphatase B-Natriuretic Peptide 93.8 Total Protein Albumin Globulin Albumin/Globulin Ratio Discharge Plan Triage Chief Complaint: Lockwood C/O ED Provider: Wilber De La Vega Dx/Rx/DC Orders Clinical Impression: Hematuria, gross, Hypokalemia, Anemia Prescriptions: No Action lisinopril-hydrochlorothiazide 20-25 mg tablet 1 tab PO DAILY metoprolol succinate 25 MG tablet 25 mg PO DAILY Label Comments: blood pressure/heart acidophilus-pectin, citrus 1 TABLET tablet 1 tab PO DAILY Label Comments: probiotic multivitamin with folic acid [Thera] 1 TABLET tablet 1 tab PO DAILY Label Comments: supplement tamsulosin 0.4 mg capsule 1 tab PO DAILY ondansetron 4 MG tablet 4 mg PO Q6H PRN PRN (Reason: Nausea) Qty: 10 0RF prednisone 5 mg tablet 5 mg PO DAILY Label Comments: TAKE 1 TABLET BY MOUTH ONCE DAILY omeprazole 10 mg capsule,delayed release(DR/EC) 20 mg PO DAILY amlodipine 10 mg tablet 10 mg PO DAILY Label Comments: TAKE 1 TABLET BY MOUTH ONCE DAILY oxybutynin chloride 5 mg tablet extended release 24hr 5 mg PO DAILY finasteride 5 mg tablet 5 mg PO DAILY oxycodone-acetaminophen [Percocet] 5-325 mg tablet 1 tab PO Q6H PRN (Reason: pain) 3 Days Qty: 12 0RF ketorolac 10 mg tablet 10 mg PO Q6H PRN (Reason: pain) 5 Days Qty: 20 0RF ciprofloxacin HCl [Cipro] 500 mg tablet 500 mg PO BID Qty: 6 0RF oxycodone-acetaminophen 5-325 mg tablet 1 tab PO Q6H PRN (Reason: pain) 7 Days Qty: 14 0RF cephalexin 500 mg capsule 500 mg PO Q8H Qty: 15 0RF Primary Care Provider: Darrin Ramirez Referrals: Darrin Ramirez MD [Primary Care Provider] - Disposition Disposition: Acute Care Hospital [facility]
--- NOTE | 2022-04-10 17:26 | ED.RN ---
Upon arrival to ED bed 17 this RN removed leg bag and placed to ellison bag. Ellison irrigated with a total of 2L of fluid, copious amounts of clots removed w/irrigation. Pt tolerated well. Dr larry.
[2022-04-10 17:59] LABS: Absolute Lymphocyte Count 1.12 X10^3/uL (0.83-4.51); Absolute Neutrophil Count 5.2 X10^3/uL (2.0-7.7); Basophil# 0.04 X10^3/uL; Basophil% 0.5 % (0-1); Eosinophil# 0.43 X10^3/uL; Eosinophils% 5.6 % (0-5); Hematocrit 22.5 % (40-54); Hemoglobin 7.2 g/dL (13.0-16.5); Lymphocyte # 1.12 X10^3/ul (0.83-4.51); Lymphocyte % 14.5 % (19-41); Mean Corpuscular Hgb 29.3 pg (27.0-32.0); Mean Corpuscular Volume 91.5 fL (80-94); Mean Platelet Vol. 9.6 fl (6.2-12.0); Monocyte% 11.6 % (0-10); NRBC Flagged by Analyzer 0 % (0-5); Neutrophil % 67.3 % (47-70); Platelet Count 215 K/mm3 (150-450); RBC Distribution Width SD 43.3 fl (35.1-43.9); Red Blood Count 2.46 M/mm3 (4.6-6.2); White Blood Count 7.7 K/mm3 (4.4-11.0)
[2022-04-10 18:05] LABS: International Normalized Ratio 1.1; Prothrombin Time (Protime)PT. 13.8 SECONDS (11.7-14.9)
[2022-04-10 18:06] LABS: Partial Thromboplast Time 27.1 Seconds (24.1-36.2)
[2022-04-10 18:21] LABS: ALB/GLOB Ratio 0.7 RATIO (0.9-2.4); AST(SGOT) 15 U/L (15-37); Alanine Aminotransfer ALT/SGPT 17 U/L (16-61); Albumin, Serum 2.7 g/dL (3.2-5.0); Alkaline Phosphatase 64 U/L (45-117); Anion Gap 6 (5-15); BUN 16 mg/dL (7-18); BUN/Creat Ratio 23.4 RATIO (10-20); Calcium,Total 8.5 mg/dL (8.5-10.1); Chloride 104 mmol/L (98-107); Creatinine, Serum 0.68 mg/dL (0.70-1.30); EST Glomerular Filtration Rate 118 mL/min (>60); Est Glom Filt Rate - Afr Amer 142 mL/min (>60); Estimated Creatinine Clearance 58.81 ml/min; Glucose 95 mg/dL (74-106); Potassium 3.1 mmol/L (3.5-5.1); Protein, Total 6.7 g/dL (6.4-8.2); Sodium Level 137 mmol/L (136-145)
[2022-04-10 18:22] LABS: BNP,B-Type NATRIURETIC PEPTIDE 93.8 pg/mL (0-100)
--- NOTE | 2022-04-10 20:23 | ED.RN ---
Manual ellison irrigation performed again, Dr harvey, order to place 3 way w/CBI.
[2022-04-10] MEDS: Potassium Chloride Oral Tablet 20 MEQ 40 MEQ PO (21:24)
[2022-04-10] MEDS: Morphine 4 MG/ML Syringe IV (21:57)
--- NOTE | 2022-04-10 22:10 | HP.PCM.HOS_ITS ---
[facility] - General General Date of Admission: 04/10/22 Date of Service: 04/10/22 Chief Complaint: Urinary clots [facility] Narrative KEENA FRIED, is a 81 M with a significant history of prostate cancer status post radiation and on a chemotherapy; and urinary retention who presents to the emergency department with urinary clots that was clogging his Lockwood catheter. Associated with his symptoms is severe spasmatic suprapubic pain. Of note patient recently had a urinary stent placed and removed; and also recently had Lockwood cath for urinary retention. [facility] Medical History Abnormal electrocardiogram Ambulates with cane Arthritis Back pain BPH (benign prostatic hyperplasia) Cardiology follow-up encounter Chronic back pain Depression Diverticulosis Easy bruising Essential hypertension Gastric reflux GERD (gastroesophageal reflux disease) History of echocardiogram History of edema History of steroid therapy Hyperlipidemia Hypertension Inguinal hernia Leg cramps Loss of hearing Lung nodule Multiple premature ventricular complexes Non-smoker Nonrheumatic aortic (valve) stenosis Obesity Osteoarthritis Prostate cancer metastatic to bone Prostate disease Restless legs Wears glasses Wears hearing aid Home Medications acidophilus 25 million cell-pectin, citrus 100 mg tablet 1 tab PO DAILY 03/12/14 [History Last Taken Unknown] metoprolol succinate 25 mg tablet,extended release 24 hr 25 mg PO DAILY 03/12/14 [History Last Taken 03/23/22] multivitamin with folic acid 400 mcg tablet (Thera) 1 tab PO DAILY 03/12/14 [History Last Taken 03/23/22] tamsulosin 0.4 mg capsule 1 tab PO DAILY 12/12/19 [History Last Taken Unknown] lisinopril 20 mg-hydrochlorothiazide 25 mg tablet 1 tab PO DAILY 01/27/21 [History Last Taken 03/23/22] ondansetron 4 mg disintegrating tablet 4 mg PO Q6H PRN PRN Nausea #10 tabs 09/07/21 [Rx Last Taken Unknown] amlodipine 10 mg tablet 10 mg PO DAILY 03/21/22 [History Last Taken Unknown] finasteride 5 mg tablet 5 mg PO DAILY 03/21/22 [History Last Taken Unknown] ketorolac 10 mg tablet 10 mg PO Q6H PRN pain 5 days #20 tabs 03/21/22 [Rx Last Taken Unknown] omeprazole 10 mg capsule,delayed release 20 mg PO DAILY 03/21/22 [History Last Taken 03/23/22] oxybutynin chloride 5 mg tablet,extended release 24 hr 5 mg PO DAILY 03/21/22 [History Last Taken Unknown] oxycodone-acetaminophen 5 mg-325 mg tablet (Percocet) 1 tab PO Q6H PRN pain 3 days #12 tabs 03/21/22 [Rx Last Taken 03/23/22] prednisone 5 mg tablet 5 mg PO DAILY 03/21/22 [History Last Taken Unknown] ciprofloxacin HCl 500 mg tablet (Cipro) 500 mg PO BID #6 tabs 03/23/22 [Rx Last Taken Unknown] oxycodone-acetaminophen 5 mg-325 mg tablet 1 tab PO Q6H PRN pain 7 days #14 tabs 03/23/22 [Rx Last Taken Unknown] cephalexin 500 mg capsule 500 mg PO Q8H #15 caps 04/08/22 [Rx Last Taken Unknown] abiraterone 250 mg tablet 250 mg PO DAILY 04/10/22 [History Last Taken Unknown] aspirin 81 mg capsule 81 mg PO DAILY 04/10/22 [History Last Taken Unknown] Allergy/AdvReac Type Severity Reaction Status Date / Time No Known Allergies Allergy Verified 04/10/22 15:57 Family History Father Heart disease Surgical History Amputated toe History of carpal tunnel release History of cystoscopy History of inguinal hernia repair History of left knee replacement History of total knee arthroplasty Social History household members: spouse Smoking Status: Never smoker substance use type: does not use ROS ROS Narrative Pertinent positives and pertinent negatives as noted in HPI. All other systems were reviewed and are negative Vital Signs Vital Signs Vital Signs: 04/10/22 15:55 04/10/22 17:00 Temperature 97.9 F 97.9 F Temperature Source Temporal Temporal Pulse Rate 94 94 Respiratory Rate 16 16 Blood Pressure 135/78 H 135/78 H Blood Pressure Mean 97 97 Pulse Ox 98 98 Oxygen Delivery Method Room Air Room Air Weight Weight: 108.862 kg Body Mass Index (BMI) 34.4 Physical Exam Narrative Physical exam: General: Well-nourished, well-developed. Head: Normocephalic, atraumatic, no tenderness Eyes: Vision is grossly intact. EOMI ENT, no trauma, moist mucous membranes, no rhinorrhea Neck: Nontender, No thyromegaly. CVS: Regular rate and rhythm. S1-S2 present. No murmur, gallop or rub. Respiratory : clear to auscultation bilaterally, chest wall nontender, no wheezing Abdomen: Soft, nontender, nondistended, normal bowel sounds, no masses : Lockwood catheter with bloody urine. Back: Nontender, no CVA tenderness. Extremities: Nontender full range of motion, no trauma Skin: Normal color, no trauma, abrasions Neuro: Alert, oriented, cranial nerves II through XII grossly intact. Psychiatry: Normal mood. Normal affect. Not depressed. Not anxious. Results Lab / Micro Data Result Diagrams: 04/10/22 Unknown 04/10/22 Unknown Labs: Laboratory Results - last 24 hr 04/10/22 : WBC 7.7, RBC 2.46 L, Hgb 7.2 L, Hct 22.5 L, MCV 91.5, MCH 29.3, MCHC 32.0, RDW Std Deviation 43.3, RDW Coeff of Marta 13.0, Plt Count 215, MPV 9.6, Immature Gran % (Auto) 0.500, Neut % (Auto) 67.3, Lymph % (Auto) 14.5 L, [place] % (Auto) 11.6 H, Eos % (Auto) 5.6 H, Baso % (Auto) 0.5, Absolute Neuts (auto) 5.2, Absolute Lymphs (auto) 1.12, Nucleated RBC % 0 04/10/22 : PT 13.8, INR 1.1, APTT 27.1 04/10/22 : Sodium 137, Potassium 3.1 L, Chloride 104, Carbon Dioxide 27.0, Anion Gap 6, BUN 16, Creatinine 0.68 L, Estim Creat Clear Calc 58.81, Est GFR (MDRD) Af Amer 142, Est GFR (MDRD) Non-Af 118, BUN/Creatinine Ratio 23.4 H, Glucose 95, Calcium 8.5, Total Bilirubin 0.30, AST 15, ALT 17, Alkaline Phosphatase 64, Total Protein 6.7, Albumin 2.7 L, Globulin 4.0, Albumin/Globulin Ratio 0.7 L 04/10/22 : B-Natriuretic Peptide 93.8 Assessment & Plan Assessment/Plan (1) Acute urinary retention: (2) Hematuria, gross: (3) Hypokalemia: (4) ABLA (acute blood loss anemia): PLAN: Plan Acute urinary retention with gross hematuria Three-way catheter for irrigation started emergency department and continued. Coagulation studies shows INR of 1.1 Morphine IV pain for pain ordered. Keep n.p.o. after midnight for possible urological procedure. Urology consult Gross hematuria and acute blood loss anemia Review of labs shows hemoglobin of 7.2 on presentation. His hemoglobin on 04/07/2022 was 10.9 and hemoglobin on 03/21/2022 was 11.9. This should the patient has had at least 3 g drop in his hemoglobin. Patient was typed at the emergency department and 1 unit of blood ordered to be transfused. Trend H&H. Hold aspirin Hypokalemia Potassium of 3.1 on presentation. Patient received p.o. potassium at the emergency department. Normal saline with potassium supplementation ordered. Trend BMP Hypertension Blood pressure is not within goal Amlodipine, lisinopril, and hydrochlorothiazide continued. Trend blood pressure and adjust blood pressure medications. Bilateral lower extremity edema Sim wrap ordered. CKD stage IIIa Stable DVT prophylaxis Scd Charges/Coding Visit Charges Inpatient E&M: 60339 Init Hosp L3
[2022-04-11] VITALS (24 sets, daily range): BP systolic 97–144; BP diastolic 62–106; PULSE 79–104; RESP 16–18; TEMP 36.1–37.6; O2SAT 92–99; BMI 36.3; BMI 36.4
[2022-04-11] MEDS: 0.9% Saline Lock 10 ML Syringe IV ×2 (02:30→06:40)
[2022-04-11] MEDS: Morphine 4 MG/ML Syringe IV ×2 (02:31→06:40)
[2022-04-11] MEDS: KCL 40mEq in 0.9% NS 40 MEQ/1,000 ML IV.SOLN 75 MEQ IV (02:31)
[2022-04-11 04:02] LABS: Absolute Lymphocyte Count 0.91 X10^3/uL (0.83-4.51); Absolute Neutrophil Count 5.3 X10^3/uL (2.0-7.7); Basophil# 0.04 X10^3/uL; Basophil% 0.5 % (0-1); Eosinophil# 0.37 X10^3/uL; Hematocrit 22.8 % (40-54); Hemoglobin 7.5 g/dL (13.0-16.5); Lymphocyte # 0.91 X10^3/ul (0.83-4.51); Lymphocyte % 12.2 % (19-41); Mean Corp Hgb Conc 32.9 g/dL (32-36); Mean Corpuscular Hgb 29.5 pg (27.0-32.0); Mean Corpuscular Volume 89.8 fL (80-94); Mean Platelet Vol. 9.2 fl (6.2-12.0); Monocyte% 10.7 % (0-10); NRBC Flagged by Analyzer 0 % (0-5); Neutrophil # 5.32 X10^3/uL (2.7-7.7); Neutrophil % 71.2 % (47-70); Platelet Count 203 K/mm3 (150-450); RBC Distribution Width CV 13.2 % (11.6-14.6); RBC Distribution Width SD 42.6 fl (35.1-43.9); Red Blood Count 2.54 M/mm3 (4.6-6.2); White Blood Count 7.5 K/mm3 (4.4-11.0)
[2022-04-11 04:35] LABS: Anion Gap 6 (5-15); BUN 13 mg/dL (7-18); BUN/Creat Ratio 20.2 RATIO (10-20); Calcium,Total 8.3 mg/dL (8.5-10.1); Chloride 106 mmol/L (98-107); Creatinine, Serum 0.64 mg/dL (0.70-1.30); EST Glomerular Filtration Rate 126 mL/min (>60); Est Glom Filt Rate - Afr Amer 153 mL/min (>60); Estimated Creatinine Clearance 58.81 ml/min; Glucose 108 mg/dL (74-106); Potassium 3.4 mmol/L (3.5-5.1); Sodium Level 139 mmol/L (136-145)
--- NOTE | 2022-04-11 06:00 | EKG12_ITS ---
Test Reason : AM EKG Blood Pressure : / mmHG Vent. Rate : 096 BPM Atrial Rate : 096 BPM P-R Int : 212 ms QRS Dur : 096 ms QT Int : 392 ms P-R-T Axes : 052 019 009 degrees QTc Int : 495 ms Sinus rhythm with 1st degree A-V block with occasional Premature ventricular complexes and Premature atrial complexes Prolonged QT Abnormal ECG No previous ECGs available Confirmed by ROB KEITH, CHRIS ([id number]), greeting card editor MADELINE AKERS ([id number]) on 04/12/2022 12:47:02 PM Referred By: LIZETH Confirmed By:CHRIS RIVAS MD
--- NOTE | 2022-04-11 07:43 | CT_ITS ---
STUDY: CT ABDOMEN AND PELVIS WITH CONTRAST REASON FOR EXAM: Male, 81 years old. History of prostate cancer. Blood clot in the RATLIFF catheter. Suprapubic pain. RADIATION DOSAGE (If Supplied By Facility): CTDIvol = ( 18.66 ) mGy, DLP = ( 2099.08 ) mGycm TECHNIQUE: Transaxial images were obtained from the dome of the diaphragm to the symphysis pubis without oral contrast. IV 100mL Isovue-300 was administered. Sagittal and coronal images were reconstructed. Individualized dose optimization techniques were used for this CT. COMPARISON: Comparison is made with prior examination dated 03/21/2022. FINDINGS: Mild degree of increased linear markings at the lung bases suggestive of bibasilar atelectasis. Coronary artery calcification. Calcification of the mitral valve annulus. Normal liver. Normal gallbladder and extrahepatic biliary system. There are multiple benign calcified granulomata of the spleen. Normal pancreas. Normal bilateral adrenal glands. There is evidence of small bilateral nonobstructive intrarenal calculi. This is more prominent in the right kidney. Mild degree of right hydronephrosis and hydroureter due to a 7 mm calculus in the distal portion of the right ureter just proximal to the ureterovesical junction. Normal visualized stomach. Normal small intestine. Normal colon. The appendix is visualized and appears normal. There is diffuse atherosclerotic calcification of the abdominal aorta, without a demonstrated aneurysm. Normal inferior vena cava. Normal retroperitoneum. Calculi are also seen at the base of the bladder. A RATLIFF catheter seen within the bladder. There is evidence of a 5.8 cm x 3.8 cm mass at the base of the bladder more prominent on the right side. Tiny air bubbles are seen within the mass most likely secondary to recent biopsy. Normal abdominal wall. There are diffuse degenerative changes of the visualized lumbar spine. CT/Abdomen/Pelvis W IV Cont ONLY IMPRESSION: Right hydronephrosis and hydroureter due to a 7 mm calculus in distal portion of the right ureter just proximal to the ureterovesical junction. A RATLIFF catheter is within the bladder. 5.8 cm x 3.8 cm soft tissue mass at the base of the bladder with a diameter with tiny air bubbles within it most likely secondary to recent biopsy. Nonobstructive bilateral renal calculi are Bilateral basilar atelectasis. There is evidence of calculi at the base of the bladder. Electronically Signed: Jules Vo MD at 9:11 EST ,
[2022-04-11] MEDS: Tolterodine Tartrate 2 MG CAP.SA PO (07:45)
[2022-04-11] MEDS: Finasteride 5 MG Tablet PO (07:45)
[2022-04-11] MEDS: Tamsulosin HCl 0.4 MG Capsule PO (07:45)
--- NOTE | 2022-04-11 07:46 | PCM.CONS.U ---
Assessment & Plan Assessment/Plan (1) ABLA (acute blood loss anemia): (2) Acute urinary retention: (3) Hematuria, gross: PLAN: Plan to do CT scan with contrast to evaluate source of bleeding we will take him today to surgery depending on the final CAT scan HPI Consult Data Date of Consult: 04/11/22 HPI Narrative Reason for Consultation: Gross hematuria HPI Narrative: KEENA FRIED, is a 81 M who presents To the hospital with gross hematuria required a catheter and irrigation the nurses been irrigating constantly and cannot get in the urine clear so we will do a CT scan with IV contrast to hopefully identify the source of the bleeding. The patient is n.p.o. and will plan to take him to surgery as soon as time slot is available I called this morning and they gave him a 2 PM time slot but they are working on getting a sooner slot. For now we will continue with supportive measures and will take him to surgery later today once available. [facility] Medical History Abnormal electrocardiogram Ambulates with cane Arthritis Back pain BPH (benign prostatic hyperplasia) Cardiology follow-up encounter Chronic back pain Depression Diverticulosis Easy bruising Essential hypertension Gastric reflux GERD (gastroesophageal reflux disease) History of echocardiogram History of edema History of steroid therapy Hyperlipidemia Hypertension Inguinal hernia Leg cramps Loss of hearing Lung nodule Multiple premature ventricular complexes Non-smoker Nonrheumatic aortic (valve) stenosis Obesity Osteoarthritis Prostate cancer metastatic to bone Prostate disease Restless legs Wears glasses Wears hearing aid Home Medications acidophilus 25 million cell-pectin, citrus 100 mg tablet 1 tab PO DAILY probiotic 03/12/14 [History Last Taken 04/10/22] metoprolol succinate 25 mg tablet,extended release 24 hr 25 mg PO DAILY HTN 03/12/14 [History Last Taken 04/10/22] tamsulosin 0.4 mg capsule 1 tab PO BID BPH 12/12/19 [History Last Taken 04/10/22] lisinopril 20 mg-hydrochlorothiazide 25 mg tablet 1 tab PO DAILY HTN 01/27/21 [History Last Taken 04/10/22] amlodipine 10 mg tablet 10 mg PO DAILY HTN 03/21/22 [History Last Taken 04/10/22] finasteride 5 mg tablet 5 mg PO DAILY BPH 03/21/22 [History Last Taken 04/10/22] ketorolac 10 mg tablet 10 mg PO Q6H PRN pain 5 days #20 tabs 03/21/22 [Rx Last Taken 04/10/22] omeprazole 10 mg capsule,delayed release 20 mg PO 0800 GERD 03/21/22 [History Last Taken 04/10/22] oxybutynin chloride 5 mg tablet,extended release 24 hr 5 mg PO DAILY bladder 03/21/22 [History Last Taken 04/10/22] prednisone 5 mg tablet 5 mg PO QHS with chemo pill 03/21/22 [History Last Taken 04/09/22] abiraterone 250 mg tablet 1,000 mg PO QHS chemo pill 04/10/22 [History Last Taken 04/09/22] ascorbic acid (vitamin C) 1 tab PO/SL DAILY supplement 04/10/22 [History Last Taken 04/10/22] aspirin 81 mg capsule 81 mg PO DAILY heart health 04/10/22 [History Last Taken 04/10/22] cephalexin 500 mg capsule 500 mg PO Q8H antibiotic 04/10/22 [History Last Taken 04/10/22] cholecalciferol (vitamin D3) 125 mcg (5,000 unit) tablet (Vitamin D3) 125 mcg PO DAILY supplement 04/10/22 [History Last Taken 04/10/22] sjyulwzv-oow-qozmi acid 0.4 mg-lycopene 300 mcg-lutein 250 mcg tablet (Centrum Silver) 1 tab PO DAILY supplement 04/10/22 [History Last Taken 04/10/22] oxycodone 5 mg tablet 5 mg PO Q6H PRN Pain 04/10/22 [History Last Taken 04/10/22] zinc 10 mg tablet 10 mg PO DAILY supplement 04/10/22 [History Last Taken 04/10/22] Allergy/AdvReac Type Severity Reaction Status Date / Time No Known Allergies Allergy Verified 04/10/22 15:57 Family History Father Heart disease Surgical History Amputated toe History of carpal tunnel release History of cystoscopy History of inguinal hernia repair History of left knee replacement History of total knee arthroplasty Social History household members: spouse Smoking Status: Never smoker substance use type: does not use ROS Constitutional Constitutional: Denies chills, fever(s) or malaise Eyes Eyes: Denies blurry vision or change in vision ENT HEENT: Reports none Cardiovascular Cardiovascular: Denies chest pain or palpitations Respiratory/Chest Respiratory/Chest: Denies cough or shortness of breath with exertion Gastrointestinal Gastrointestinal: Denies abdominal pain, constipation or diarrhea Musculoskeletal Musculoskeletal: Denies back pain, joint stiffness or joint swelling Integumentary Integumentary: Denies dry skin, jaundice, lesions or rash Neurologic Neurologic: Denies confusion, syncope or weakness Psychiatric Psychiatric: Reports none; Denies anxiety or depression Endocrine Endocrinology: Denies excessive sweating, fatigue or flushing Hematologic/Lymphatic Hematologic/Lymphatic: Denies anemia, easy bleeding or easy bruising Medical Records Data Attestation: I reviewed the patient's medical records Lab / Micro Data Attestation: I reviewed the patient's lab results. Result Diagrams: 04/11/22 03:50 04/11/22 03:50 Labs: Laboratory Results - last 24 hr 04/10/22 21:40: Blood Type A POSITIVE, Antibody Screen NEGATIVE 04/10/22 21:40: Crossmatch See Detail 04/10/22 : WBC 7.7, RBC 2.46 L, Hgb 7.2 L, Hct 22.5 L, MCV 91.5, MCH 29.3, MCHC 32.0, RDW Std Deviation 43.3, RDW Coeff of Marta 13.0, Plt Count 215, MPV 9.6, Immature Gran % (Auto) 0.500, Neut % (Auto) 67.3, Lymph % (Auto) 14.5 L, Tyrrell % (Auto) 11.6 H, Eos % (Auto) 5.6 H, Baso % (Auto) 0.5, Absolute Neuts (auto) 5.2, Absolute Lymphs (auto) 1.12, Nucleated RBC % 0 04/10/22 : PT 13.8, INR 1.1, APTT 27.1 04/10/22 : Sodium 137, Potassium 3.1 L, Chloride 104, Carbon Dioxide 27.0, Anion Gap 6, BUN 16, Creatinine 0.68 L, Estim Creat Clear Calc 58.81, Est GFR (MDRD) Af Amer 142, Est GFR (MDRD) Non-Af 118, BUN/Creatinine Ratio 23.4 H, Glucose 95, Calcium 8.5, Total Bilirubin 0.30, AST 15, ALT 17, Alkaline Phosphatase 64, Total Protein 6.7, Albumin 2.7 L, Globulin 4.0, Albumin/Globulin Ratio 0.7 L 04/10/22 : B-Natriuretic Peptide 93.8 04/11/22 03:50: Sodium 139, Potassium 3.4 L, Chloride 106, Carbon Dioxide 27.0, Anion Gap 6, BUN 13, Creatinine 0.64 L, Estim Creat Clear Calc 58.81, Est GFR (MDRD) Af Amer 153, Est GFR (MDRD) Non-Af 126, BUN/Creatinine Ratio 20.2 H, Glucose 108 H, Calcium 8.3 L 04/11/22 03:50: WBC 7.5, RBC 2.54 L, Hgb 7.5 L, Hct 22.8 L, MCV 89.8, MCH 29.5, MCHC 32.9, RDW Std Deviation 42.6, RDW Coeff of Marta 13.2, Plt Count 203, MPV 9.2, Immature Gran % (Auto) 0.400, Neut % (Auto) 71.2 H, Lymph % (Auto) 12.2 L, Tyrrell % (Auto) 10.7 H, Eos % (Auto) 5.0, Baso % (Auto) 0.5, Absolute Neuts (auto) 5.3, Absolute Lymphs (auto) 0.91, Nucleated RBC % 0
[2022-04-11] MEDS: Metoprolol(XL)Succ 25 MG Tablet PO (09:10)
--- NOTE | 2022-04-11 09:12 | PN.HOSP_ITS ---
Subjective Subjective Hematuria ongoing but less clots. Has never had any issues with hematuria or blood clots in his urine before. Objective Data Objective Data Vital Signs: Vital Signs Temp Pulse Resp BP Pulse Ox O2 Del Method 36.6 C 92 18 124/83 H 97 Room Air 04/11/22 06:48 04/11/22 06:48 04/11/22 06:48 04/11/22 06:48 04/11/22 06:48 04/11/22 06:48 Oxygen Delivery Method Room Air Weight: 115.1 kg Body Mass Index (BMI) 36.3 Intake & Output: Intake and Output for Last 24 Hours 04/09/22 04/10/22 04/11/22 23:59 23:59 23:59 Intake Total 0 / 0 400 / 400 Output Total 6500 / 6500 8250 / 8250 Balance -6500 / -6500 -7850 / -7850 Lab / Micro Data Result Diagrams: 04/11/22 03:50 04/11/22 03:50 Labs: Laboratory Results - last 24 hr 04/10/22 21:40: Blood Type A POSITIVE, Antibody Screen NEGATIVE 04/10/22 21:40: Crossmatch See Detail 04/10/22 : WBC 7.7, RBC 2.46 L, Hgb 7.2 L, Hct 22.5 L, MCV 91.5, MCH 29.3, MCHC 32.0, RDW Std Deviation 43.3, RDW Coeff of Marta 13.0, Plt Count 215, MPV 9.6, Immature Gran % (Auto) 0.500, Neut % (Auto) 67.3, Lymph % (Auto) 14.5 L, Davidson % (Auto) 11.6 H, Eos % (Auto) 5.6 H, Baso % (Auto) 0.5, Absolute Neuts (auto) 5.2, Absolute Lymphs (auto) 1.12, Nucleated RBC % 0 04/10/22 : PT 13.8, INR 1.1, APTT 27.1 04/10/22 : Sodium 137, Potassium 3.1 L, Chloride 104, Carbon Dioxide 27.0, Anion Gap 6, BUN 16, Creatinine 0.68 L, Estim Creat Clear Calc 58.81, Est GFR (MDRD) Af Amer 142, Est GFR (MDRD) Non-Af 118, BUN/Creatinine Ratio 23.4 H, Glucose 95, Calcium 8.5, Total Bilirubin 0.30, AST 15, ALT 17, Alkaline Phosphatase 64, Total Protein 6.7, Albumin 2.7 L, Globulin 4.0, Albumin/Globulin Ratio 0.7 L 04/10/22 : B-Natriuretic Peptide 93.8 04/11/22 03:50: Sodium 139, Potassium 3.4 L, Chloride 106, Carbon Dioxide 27.0, Anion Gap 6, BUN 13, Creatinine 0.64 L, Estim Creat Clear Calc 58.81, Est GFR (MDRD) Af Amer 153, Est GFR (MDRD) Non-Af 126, BUN/Creatinine Ratio 20.2 H, Glucose 108 H, Calcium 8.3 L 04/11/22 03:50: WBC 7.5, RBC 2.54 L, Hgb 7.5 L, Hct 22.8 L, MCV 89.8, MCH 29.5, MCHC 32.9, RDW Std Deviation 42.6, RDW Coeff of Marta 13.2, Plt Count 203, MPV 9.2, Immature Gran % (Auto) 0.400, Neut % (Auto) 71.2 H, Lymph % (Auto) 12.2 L, [place] % (Auto) 10.7 H, Eos % (Auto) 5.0, Baso % (Auto) 0.5, Absolute Neuts (auto) 5.3, Absolute Lymphs (auto) 0.91, Nucleated RBC % 0 Physical Exam Const alert and no apparent distress Resp normal respiratory effort, no retractions and no use of accessory muscles Cardio regular rate and regular rhythm GI normal to inspection, nondistended, normoactive bowel sounds and soft to palpation Neuro oriented x3 Assessment & Plan Assessment/Plan (1) Acute urinary retention: PLAN: BPH v stricture v mass (given h/o prostate CA) Catheter in place on Tamsulosin consult. (2) Hematuria, gross: PLAN: Three-way catheter for irrigation started emergency department and continued. Coagulation studies shows INR of 1.1 Morphine IV pain for pain ordered. Keep n.p.o. after midnight for possible urological procedure. CT showed right hydronephrosis and hydroureter due to a submillimeter calculus in the distal portion of the right ureter. Plan is for the patient to be taken to the OR today (3) Hypokalemia: PLAN: Hypokalemia Potassium of 3.1 on presentation. Patient received p.o. potassium at the emergency department. Normal saline with potassium supplementation ordered. Trend BMP (4) ABLA (acute blood loss anemia): PLAN: Gross hematuria and acute blood loss anemia Review of labs shows hemoglobin of 7.2 on presentation. His hemoglobin on 04/07/2022 was 10.9 and hemoglobin on 03/21/2022 was 11.9. This should the patient has had at least 3 g drop in his hemoglobin. Patient was typed at the emergency department and 1 unit of blood ordered to be transfused Hold ASA Monitor, transfuse if hg less than 7 PLAN: Plan Chronic conditions: * Hypertension: fair control. Amlodipine, lisinopril, and hydrochlorothiazide continued. * Bilateral lower extremity edema: Sim wrap ordered. * CKD stage IIIa: Stable DVT prophylaxis: Scd Charges/Coding Visit Charges Inpatient E&M: 19528 Subs Hosp L2
--- NOTE | 2022-04-11 11:40 | CASEMGMT ---
RN JULI DIRECTOR [employer]DS DEVELOPMENT CM to room to meet with patient for initial transition planning/care coordination assessment. LILA BUSTOS introduced self and role at [facility]. Pt voices understanding and consents to assessment at this time. Pt resting in bed in no distress at this time. @ bedside. Pt is A/O at this time and answers all questions appropriately. Care providers, pharmacy, and demographics verified/updated at this time. PCP: Dr Ramirez Specialists: Dr Dixon-oncology, Dr Mejia-urology, Dr Singleton-[facility] Preferred Pharmacy: [facility] Insurance:[employer] [facility] Prescription Benefit: Living Will/HPOA: Pt has both LW and HCPOA, who is his , Cheryl LNOK: , Cheryl. 5 adult children. Dtr, Laura. Living Arrangements: Lives w/ in 2-story home w/2 steps to enter. Does okay w/stairs. Independent. 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 Transportation: Pt and . DME: Denies using any DME and denies needs. HHC/SNF: No hx of either. Has done OP therapy in the past after surgery. No needs identified. Pt wishes to return home and states has no concerns with going home at time of discharge. CM to follow for any discharge planning/needs. Pt and voice no concerns/needs at this time. Advised them to ask for CM if any questions/concerns/needs arise. They voice understanding. PLAN: Home Enio MCGRAW RN, CM
[2022-04-11] MEDS: Lactated Ringers 1,000 ML 15 ML IV ×2 (13:07→18:00)
[2022-04-11] MEDS: Cefazolin 2 GM in 0.9% Normal Saline 100 ML IV (14:32)
--- NOTE | 2022-04-11 15:46 | OP.PCM_ITS ---
Report of Operation Date of Procedure: 04/11/22 Pre-Operative Diagnosis: Gross hematuria and bleeding from the prostate, right impacted ureteral calculi and distal ureter right side Post-Operative Diagnosis: The same Surgery/Procedure Performed:: 1. Cystoscopy evacuation of blood clots and cauterization of prostatic bleeding #2 transurethral resection of the right ureteral orifice #3 right ureteroscopy laser lithotripsy of stones and distal ureter, basket extraction of fragments, stent placement Description of Surgical Findings:: 81-year-old male taken back to the operating room at the [facility] of general anesthesia he was placed in dorsolithotomy position. The penis testicle prepped and draped in usual sterile fashion, one of the bladder with a 21 Tongan rigid cystourethroscope and found an extensive amount of blood clots within the bladder I then switched over to the 26 Tongan Olympus resectoscope with this I evacuated all the clots out of his bladder and then identified that there was bleeding from the 12:00 on the prostate edge so then using the Olympus resectoscope with a large loop I cauterized this extensively until I get the bleeding stopped there is also a lot of blood vessel in the back of the bladder that was cauterized. After evacuating all the clots of the bladder and cauterizing the prostate the bleeding stopped then I could see in the bladder fairly nicely in the neck and the right ureteral orifice was impacted with a stone was impossible to get in so I decided to resect the ureteral orifice so switched over the resectoscope and resected the right ureteral orifice taking 3- 4 swipes through the ureter to open up immediately a bunch of stone fragments came out of the distal ureter but there is still remaining fragments within the ureter. I then went back to great regular cystoscope and put a wire up on the right side and then next to the wire I went in with a semirigid ureteroscope and found a bunch of stone fragments along the course of the distal ureter I then used a 400 ?m laser fiber and laser of the stones little tiny pieces of very hard stone had to crank up the energy to 1.5 J and 1.2 Hz finding the stones were lasered enough that I could basketed so I used a basket and extracted all the stones with a basket into the bladder and then once the stones were already removed there was still no more bleeding and then I backloaded the cystoscope with a wire and then placed a stent on the right side. Patient Ellison catheter was placed and the Ellison stays clear overnight we may try voiding trial tomorrow or send him home with a catheter let it heal probably more conservative his left the catheter he will. And then I will need to see him back in a few weeks to get the stent out. Surgeon: Cleve Mejia Type of Anesthesia: General Drains: ellison 20 fr and stent Admit VTE Documentation VTE Present on Admission: No VTE Mechan Device Prophylaxis: SCD's VTE Pharm Prophylaxis ordered?: No
[2022-04-12] VITALS (16 sets, daily range): BP systolic 97–122; BP diastolic 62–77; PULSE 81–96; RESP 16–18; TEMP 36.7–37.6; O2SAT 93–98; BMI 36.4
[2022-04-12] MEDS: Morphine 4 MG/ML Syringe IV ×2 (00:32→23:22)
[2022-04-12 06:30] LABS: Absolute Lymphocyte Count 0.83 X10^3/uL (0.83-4.51); Absolute Neutrophil Count 5.3 X10^3/uL (2.0-7.7); Basophil# 0.03 X10^3/uL; Basophil% 0.4 % (0-1); Eosinophil# 0.34 X10^3/uL; Eosinophils% 4.7 % (0-5); Hematocrit 20.5 % (40-54); Hemoglobin 6.7 g/dL (13.0-16.5); Lymphocyte # 0.83 X10^3/ul (0.83-4.51); Lymphocyte % 11.4 % (19-41); Mean Corp Hgb Conc 32.7 g/dL (32-36); Mean Corpuscular Volume 91.9 fL (80-94); Mean Platelet Vol. 9.5 fl (6.2-12.0); Monocyte# 0.82 X10^3/uL; Monocyte% 11.2 % (0-10); NRBC Flagged by Analyzer 0 % (0-5); Neutrophil # 5.26 X10^3/uL (2.7-7.7); Neutrophil % 71.9 % (47-70); Platelet Count 187 K/mm3 (150-450); RBC Distribution Width CV 13.5 % (11.6-14.6); RBC Distribution Width SD 44.8 fl (35.1-43.9); Red Blood Count 2.23 M/mm3 (4.6-6.2); White Blood Count 7.3 K/mm3 (4.4-11.0)
[2022-04-12 07:11] LABS: Anion Gap 4 (5-15); BUN 9 mg/dL (7-18); BUN/Creat Ratio 16.4 RATIO (10-20); Calcium,Total 8.1 mg/dL (8.5-10.1); Chloride 106 mmol/L (98-107); Creatinine, Serum 0.55 mg/dL (0.70-1.30); EST Glomerular Filtration Rate 152 mL/min (>60); Est Glom Filt Rate - Afr Amer 184 mL/min (>60); Estimated Creatinine Clearance 58.81 ml/min; Glucose 97 mg/dL (74-106); Potassium 3.7 mmol/L (3.5-5.1); Sodium Level 138 mmol/L (136-145)
--- NOTE | 2022-04-12 07:43 | PN.HOSP_ITS ---
Subjective Subjective Still with hematuria, but clots improved. Objective Data Objective Data Vital Signs: Vital Signs Temp Pulse Resp BP Pulse Ox O2 Del Method O2 Flow Rate 36.7 C 88 16 121/62 H 98 Nasal Cannula 3 04/12/22 06:31 04/12/22 06:31 04/12/22 06:31 04/12/22 06:31 04/12/22 06:31 04/12/22 06:31 04/12/22 06:31 FiO2 2 04/11/22 19:00 Oxygen Flow Rate (L/min) 3 Oxygen Delivery Method Nasal Cannula Weight: 115.1 kg Body Mass Index (BMI) 36.3 Intake & Output: Intake and Output for Last 24 Hours 04/10/22 04/11/22 04/12/22 23:59 23:59 23:59 Intake Total 0 / 0 1584.75 / 1884.75 300 / 300 Output Total 6500 / 6500 19147 / 93904 700 / 700 Balance -6500 / -6500 -36302.25 / -22069.25 -400 / -400 Lab / Micro Data Result Diagrams: 04/12/22 05:28 04/12/22 05:28 Labs: Laboratory Results - last 24 hr 04/12/22 05:28: WBC 7.3, RBC 2.23 L, Hgb 6.7 L, Hct 20.5 L, MCV 91.9, MCH 30.0, MCHC 32.7, RDW Std Deviation 44.8 H, RDW Coeff of Marta 13.5, Plt Count 187, MPV 9.5, Immature Gran % (Auto) 0.400, Neut % (Auto) 71.9 H, Lymph % (Auto) 11.4 L, [place] % (Auto) 11.2 H, Eos % (Auto) 4.7, Baso % (Auto) 0.4, Absolute Neuts (auto) 5.3, Absolute Lymphs (auto) 0.83, Nucleated RBC % 0 04/12/22 05:28: Sodium 138, Potassium 3.7, Chloride 106, Carbon Dioxide 28.0, Anion Gap 4 L, BUN 9, Creatinine 0.55 L, Estim Creat Clear Calc 58.81, Est GFR (MDRD) Af Amer 184, Est GFR (MDRD) Non-Af 152, BUN/Creatinine Ratio 16.4, Glucose 97, Calcium 8.1 L Radiography Diagnostic Testing: Radiology Impression Abdomen/Pelvis CT 04/11/22 07:43 IMPRESSION: Right hydronephrosis and hydroureter due to a 7 mm calculus in distal portion of the right ureter just proximal to the ureterovesical junction. A RATLIFF catheter is within the bladder. 5.8 cm x 3.8 cm soft tissue mass at the base of the bladder with a diameter with tiny air bubbles within it most likely secondary to recent biopsy. Nonobstructive bilateral renal calculi are Bilateral basilar atelectasis. There is evidence of calculi at the base of the bladder. Electronically Signed: Jules Vo MD at 9:11 EST , Physical Exam Const alert and no apparent distress Resp normal respiratory effort, no retractions, no use of accessory muscles and clear to auscultation bilaterally Cardio regular rate, regular rhythm, S1 normal heart sound and S2 normal heart sound GI normal to inspection, nondistended, normoactive bowel sounds, soft to palpation, non-tender and non-distended Assessment & Plan Assessment/Plan (1) Acute urinary retention: PLAN: Likely due to blood clots Catheter in place on Tamsulosin consult. (2) Hematuria, gross: PLAN: Three-way catheter for irrigation started emergency department and continued. Coagulation studies shows INR of 1.1 Morphine IV pain for pain ordered. Keep n.p.o. after midnight for possible urological procedure. CT showed right hydronephrosis and hydroureter due to a submillimeter calculus in the distal portion of the right ureter. Patient went to the operating room on the fifth and underwent cystoscopy and activation of blood clots and cauterization of prostatic bleeding, transurethral resection of right ureteral orifice, right ureteroscopy laser lithotripsy of stones of distal ureter and basket extraction of fragments and stent placement (3) ABLA (acute blood loss anemia): PLAN: Gross hematuria and acute blood loss anemia Review of labs shows hemoglobin of 7.2 on presentation. His hemoglobin on 04/07/2022 was 10.9 and hemoglobin on 03/21/2022 was 11.9. This should the patient has had at least 3 g drop in his hemoglobin. Patient was typed at the emergency department and 1 unit of blood ordered to be transfused Hold ASA /: Hemoglobin 6.7. Transfuse 1 more unit (4) Hypokalemia: PLAN: Hypokalemia Potassium of 3.1 on presentation. Patient received p.o. potassium at the emergency department. Normal saline with potassium supplementation ordered. Trend BMP PLAN: Plan Chronic conditions: * Hypertension: fair control. Amlodipine, lisinopril, and hydrochlorothiazide continued. * Bilateral lower extremity edema: Sim wrap ordered. * CKD stage IIIa: Stable DVT prophylaxis: Scd Charges/Coding Visit Charges Inpatient E&M: 01381 Subs Hosp L2
--- NOTE | 2022-04-12 07:55 | PCM.CONS.B ---
Consult Date of Consult: 04/12/22 Reason for Consult Urine is still low bloody this morning but much better status post laser of stones in the ureter resection of distal ureteral orifice and stent placement. He will need to go home with a catheter once urine is clear
[2022-04-12] MEDS: Pantoprazole Sodium 20 MG Tablet PO (08:11)
[2022-04-12] MEDS: Metoprolol(XL)Succ 25 MG Tablet PO (08:11)
[2022-04-12] MEDS: Lisinopril 20 MG Tablet PO (08:11)
[2022-04-12] MEDS: Finasteride 5 MG Tablet PO (08:12)
[2022-04-12] MEDS: Tolterodine Tartrate 2 MG CAP.SA PO (08:12)
[2022-04-12] MEDS: hydroCHLOROthiazide 25 MG Tablet PO (08:12)
[2022-04-12] MEDS: Tamsulosin HCl 0.4 MG Capsule PO (08:12)
[2022-04-12] MEDS: predniSONE 5 MG Tablet PO (08:12)
[2022-04-12] MEDS: amLODIPine 10 MG Tablet PO (08:12)
--- NOTE | 2022-04-12 09:32 | CASEMGMT ---
Social Work? ? SW in to pt room to verify advance directives. Pt confirmed has AD and named , Cheryl, as agent. SW made pt aware documents are not on file and if pt would like to bring these documents in the documents can be dropped off at the Medical Records department. Pt voiced understanding. ? ? LAURIE Galvez?
[2022-04-12] MEDS: KCL 40mEq in 0.9% NS 40 MEQ/1,000 ML IV.SOLN 75 MEQ IV (15:25)
[2022-04-12] MEDS: 0.9% Saline Lock 10 ML Syringe IV (23:23)
[2022-04-13] VITALS (13 sets, daily range): BP systolic 107–147; BP diastolic 62–91; PULSE 73–94; RESP 18–20; TEMP 36.8–37.4; O2SAT 91–97
[2022-04-13] MEDS: Morphine 4 MG/ML Syringe IV (04:31)
[2022-04-13] MEDS: KCL 40mEq in 0.9% NS 40 MEQ/1,000 ML IV.SOLN 75 MEQ IV ×2 (04:31→21:14)
[2022-04-13] MEDS: 0.9% Saline Lock 10 ML Syringe IV ×2 (04:31→23:23)
[2022-04-13 06:57] LABS: Absolute Lymphocyte Count 1.09 X10^3/uL (0.83-4.51); Absolute Neutrophil Count 6.2 X10^3/uL (2.0-7.7); Basophil# 0.03 X10^3/uL; Basophil% 0.3 % (0-1); Eosinophil# 0.34 X10^3/uL; Eosinophils% 3.9 % (0-5); Hematocrit 21.4 % (40-54); Hemoglobin 7.1 g/dL (13.0-16.5); Lymphocyte # 1.09 X10^3/ul (0.83-4.51); Lymphocyte % 12.6 % (19-41); Mean Corp Hgb Conc 33.2 g/dL (32-36); Mean Corpuscular Hgb 30.3 pg (27.0-32.0); Mean Corpuscular Volume 91.5 fL (80-94); Mean Platelet Vol. 9.5 fl (6.2-12.0); Monocyte% 10.4 % (0-10); NRBC Flagged by Analyzer 0 % (0-5); Neutrophil # 6.23 X10^3/uL (2.7-7.7); Neutrophil % 72.1 % (47-70); Platelet Count 203 K/mm3 (150-450); RBC Distribution Width CV 13.4 % (11.6-14.6); RBC Distribution Width SD 43.8 fl (35.1-43.9); Red Blood Count 2.34 M/mm3 (4.6-6.2); White Blood Count 8.7 K/mm3 (4.4-11.0)
--- NOTE | 2022-04-13 07:02 | NURSING ---
pt continue to C/O bladder spasms even after B&O supp given. Nothing draining into ellison catheter or in tubing. Urine leaking around catheter insertion site. Dr Mejia notified. Order to irrigate ellison. Ellison irrigated & approx 6 clots removed. Ellison started draining immediately eugenia calderon. Pt voices relief of spasms.
--- NOTE | 2022-04-13 07:18 | PN.HOSP_ITS ---
Subjective Subjective Still with hematuria. Did have some blood clots that did cause obstruction and had to be flushed again. No further clotting. Complains of left ankle pain. Denies any fall or injury Objective Data Objective Data Vital Signs: Vital Signs Temp Pulse Resp BP Pulse Ox O2 Del Method O2 Flow Rate 36.8 C 94 18 140/85 H 95 Room Air 3 04/13/22 05:03 04/13/22 05:03 04/13/22 05:03 04/13/22 05:03 04/13/22 05:03 04/13/22 05:03 04/13/22 05:03 FiO2 2 04/13/22 05:03 Oxygen Flow Rate (L/min) 3 Oxygen Delivery Method Room Air Weight: 115.1 kg Body Mass Index (BMI) 36.3 Intake & Output: Intake and Output for Last 24 Hours 04/11/22 04/12/22 04/13/22 23:59 23:59 23:59 Intake Total 1584.75 / 1884.75 2500 / 3300 2582.5 / 2582.5 Output Total 98749 / 72192 2500 / 3200 1999 / 1999 Balance -38644.25 / -26483.25 0 / 100 582.5 / 582.5 Lab / Micro Data Result Diagrams: 04/13/22 06:09 04/13/22 06:09 Labs: Laboratory Results - last 24 hr 04/10/22 21:40: Crossmatch See Detail 04/10/22 21:40: Crossmatch See Detail 04/13/22 06:09: WBC 8.7, RBC 2.34 L, Hgb 7.1 L, Hct 21.4 L, MCV 91.5, MCH 30.3, MCHC 33.2, RDW Std Deviation 43.8, RDW Coeff of Marta 13.4, Plt Count 203, MPV 9.5, Immature Gran % (Auto) 0.700, Neut % (Auto) 72.1 H, Lymph % (Auto) 12.6 L, [place] % (Auto) 10.4 H, Eos % (Auto) 3.9, Baso % (Auto) 0.3, Absolute Neuts (auto) 6.2, Absolute Lymphs (auto) 1.09, Nucleated RBC % 0 Physical Exam Const alert and no apparent distress HEENT head/scalp atraumatic Resp normal respiratory effort, no retractions, no use of accessory muscles and clear to auscultation bilaterally Cardio regular rate, regular rhythm, S1 normal heart sound and S2 normal heart sound GI normal to inspection, nondistended, normoactive bowel sounds GI Narrative: Light red urine in [place] Extremity Extremity Narrative: Bilateral 2+ lower extremity edema. Tenderness to left ankle Assessment & Plan Assessment/Plan (1) Acute urinary retention: PLAN: Likely due to blood clots Catheter in place on Tamsulosin (2) Hematuria, gross: PLAN: Ongoing Coagulation studies shows INR of 1.1 CT showed right hydronephrosis and hydroureter due to a submillimeter calculus in the distal portion of the right ureter. 04/11: Patient went to the operating room on the and underwent cystoscopy and activation of blood clots and cauterization of prostatic bleeding, transurethral resection of right ureteral orifice, right ureteroscopy laser l ithotripsy of stones of distal ureter and basket extraction of fragments and stent placement Per : Patient will go home with catheter once urine is clear. (3) ABLA (acute blood loss anemia): PLAN: Gross hematuria and acute blood loss anemia Review of labs shows hemoglobin of 7.2 on presentation. His hemoglobin on 04/07/2022 was 10.9 and hemoglobin on 03/21/2022 was 11.9. This should the patient has had at least 3 g drop in his hemoglobin. Patient was typed at the emergency department and 1 unit of blood ordered to be transfused Hold ASA 04/12: Hemoglobin 6.7. Transfuse 1 more unit 04/13: Repeat hemoglobin (4) Hypokalemia: PLAN: Hypokalemia Potassium of 3.1 on presentation. Patient received p.o. potassium at the emergency department. Normal saline with potassium supplementation ordered. Trend BMP (5) Left ankle pain: PLAN: Atraumatic. Mild tenderness palpation. Could be a gout flare though the patient's never had a gout flare before. Supportive management for now. PLAN: Plan Chronic conditions: * Hypertension: fair control. Amlodipine, lisinopril, and hydrochlorothiazide continued. * Bilateral lower extremity edema: Sim wrap ordered. * CKD stage IIIa: Stable DVT prophylaxis: Scd Charges/Coding Visit Charges Inpatient E&M: 00479 Subs Hosp L2
[2022-04-13 07:21] LABS: Anion Gap 7 (5-15); BUN 9 mg/dL (7-18); BUN/Creat Ratio 15.3 RATIO (10-20); Calcium,Total 8.3 mg/dL (8.5-10.1); Chloride 104 mmol/L (98-107); Creatinine, Serum 0.59 mg/dL (0.70-1.30); EST Glomerular Filtration Rate 140 mL/min (>60); Est Glom Filt Rate - Afr Amer 170 mL/min (>60); Estimated Creatinine Clearance 58.81 ml/min; Glucose 105 mg/dL (74-106); Sodium Level 137 mmol/L (136-145)
[2022-04-13] MEDS: hydroCHLOROthiazide 25 MG Tablet PO (07:49)
[2022-04-13] MEDS: Metoprolol(XL)Succ 25 MG Tablet PO (07:49)
[2022-04-13] MEDS: amLODIPine 10 MG Tablet PO (07:49)
[2022-04-13] MEDS: Pantoprazole Sodium 20 MG Tablet PO (07:49)
[2022-04-13] MEDS: Finasteride 5 MG Tablet PO (07:49)
[2022-04-13] MEDS: predniSONE 5 MG Tablet PO (07:49)
[2022-04-13] MEDS: Tolterodine Tartrate 2 MG CAP.SA PO (07:49)
[2022-04-13] MEDS: Tamsulosin HCl 0.4 MG Capsule PO (07:49)
[2022-04-13] MEDS: Lisinopril 20 MG Tablet PO (07:50)
[2022-04-13] MEDS: ABIRATERONE ACETATE 250 MG TABLET 1000 MG PO (10:42)
[2022-04-13 14:45] LABS: Absolute Neutrophil Count 6.7 X10^3/uL (2.0-7.7); Basophil# 0.03 X10^3/uL; Basophil% 0.3 % (0-1); Eosinophil# 0.25 X10^3/uL; Eosinophils% 2.7 % (0-5); Hematocrit 21.3 % (40-54); Hemoglobin 6.9 g/dL (13.0-16.5); Lymphocyte % 12.9 % (19-41); Mean Corp Hgb Conc 32.4 g/dL (32-36); Mean Corpuscular Hgb 29.5 pg (27.0-32.0); Mean Platelet Vol. 9.4 fl (6.2-12.0); Monocyte# 1.03 X10^3/uL; Monocyte% 11.1 % (0-10); NRBC Flagged by Analyzer 0.2 % (0-5); Neutrophil # 6.68 X10^3/uL (2.7-7.7); Neutrophil % 72.1 % (47-70); Platelet Count 223 K/mm3 (150-450); RBC Distribution Width CV 13.2 % (11.6-14.6); RBC Distribution Width SD 43.2 fl (35.1-43.9); Red Blood Count 2.34 M/mm3 (4.6-6.2); White Blood Count 9.3 K/mm3 (4.4-11.0)
--- NOTE | 2022-04-13 15:56 | CON.PCM.UR_ITS ---
HPI Consult Data Date of Consult: 04/13/22 HPI Narrative Reason for Consultation: Bleeding HPI Narrative: KEENA FRIED, is a 81 Male with prostate cancer he underwent cauterization of prostatic bleeding removal of stones from the ureter and stent placement unfortunately continues to bleed so today I put a three-way catheter and we can continuously irrigate the bladder and see if the bleeding can stop but if it does not stop on its own think by Monday the taken back to surgery and may have to do a TURP to stop the bleeding. [facility] Medical History Abnormal electrocardiogram Ambulates with cane Arthritis Back pain BPH (benign prostatic hyperplasia) Cardiology follow-up encounter Chronic back pain Depression Diverticulosis Easy bruising Essential hypertension Gastric reflux GERD (gastroesophageal reflux disease) History of echocardiogram History of edema History of steroid therapy Hyperlipidemia Hypertension Inguinal hernia Leg cramps Loss of hearing Lung nodule Multiple premature ventricular complexes Non-smoker Nonrheumatic aortic (valve) stenosis Obesity Osteoarthritis Prostate cancer metastatic to bone Prostate disease Restless legs Wears glasses Wears hearing aid Home Medications acidophilus 25 million cell-pectin, citrus 100 mg tablet 1 tab PO DAILY probiotic 03/12/14 [History Last Taken 04/10/22] metoprolol succinate 25 mg tablet,extended release 24 hr 25 mg PO DAILY HTN 03/12/14 [History Last Taken 04/10/22] tamsulosin 0.4 mg capsule 1 tab PO BID BPH 12/12/19 [History Last Taken 04/10/22] lisinopril 20 mg-hydrochlorothiazide 25 mg tablet 1 tab PO DAILY HTN 01/27/21 [History Last Taken 04/10/22] amlodipine 10 mg tablet 10 mg PO DAILY HTN 03/21/22 [History Last Taken 04/10/22] finasteride 5 mg tablet 5 mg PO DAILY BPH 03/21/22 [History Last Taken 04/10/22] ketorolac 10 mg tablet 10 mg PO Q6H PRN pain 5 days #20 tabs 03/21/22 [Rx Last Taken 04/10/22] omeprazole 10 mg capsule,delayed release 20 mg PO 0800 GERD 03/21/22 [History Last Taken 04/10/22] oxybutynin chloride 5 mg tablet,extended release 24 hr 5 mg PO DAILY bladder 03/21/22 [History Last Taken 04/10/22] prednisone 5 mg tablet 5 mg PO QHS with chemo pill 03/21/22 [History Last Taken 04/09/22] abiraterone 250 mg tablet 1,000 mg PO QHS chemo pill 04/10/22 [History Last Taken 04/09/22] ascorbic acid (vitamin C) 1 tab PO/SL DAILY supplement 04/10/22 [History Last Taken 04/10/22] aspirin 81 mg capsule 81 mg PO DAILY heart health 04/10/22 [History Last Taken 04/10/22] cephalexin 500 mg capsule 500 mg PO Q8H antibiotic 04/10/22 [History Last Taken 04/10/22] cholecalciferol (vitamin D3) 125 mcg (5,000 unit) tablet (Vitamin D3) 125 mcg PO DAILY supplement 04/10/22 [History Last Taken 04/10/22] zwzjapaj-liy-ovkjw acid 0.4 mg-lycopene 300 mcg-lutein 250 mcg tablet (Centrum Silver) 1 tab PO DAILY supplement 04/10/22 [History Last Taken 04/10/22] oxycodone 5 mg tablet 5 mg PO Q6H PRN Pain 04/10/22 [History Last Taken 04/10/22] zinc 10 mg tablet 10 mg PO DAILY supplement 04/10/22 [History Last Taken 04/10/22] Allergy/AdvReac Type Severity Reaction Status Date / Time No Known Allergies Allergy Verified 04/10/22 15:57 Family History Father Heart disease Surgical History Amputated toe History of carpal tunnel release History of cystoscopy History of inguinal hernia repair History of left knee replacement History of total knee arthroplasty Social History household members: spouse Smoking Status: Never smoker substance use type: does not use Lab / Micro Data Result Diagrams: 04/13/22 13:20 04/13/22 06:09 Labs: Laboratory Results - last 24 hr 04/10/22 21:40: Crossmatch See Detail 04/13/22 06:09: WBC 8.7, RBC 2.34 L, Hgb 7.1 L, Hct 21.4 L, MCV 91.5, MCH 30.3, MCHC 33.2, RDW Std Deviation 43.8, RDW Coeff of Marta 13.4, Plt Count 203, MPV 9.5, Immature Gran % (Auto) 0.700, Neut % (Auto) 72.1 H, Lymph % (Auto) 12.6 L, [place] % (Auto) 10.4 H, Eos % (Auto) 3.9, Baso % (Auto) 0.3, Absolute Neuts (auto) 6.2, Absolute Lymphs (auto) 1.09, Nucleated RBC % 0 04/13/22 06:09: Sodium 137, Potassium 3.0 L, Chloride 104, Carbon Dioxide 26.0, Anion Gap 7, BUN 9, Creatinine 0.59 L, Estim Creat Clear Calc 58.81, Est GFR (MDRD) Af Amer 170, Est GFR (MDRD) Non-Af 140, BUN/Creatinine Ratio 15.3, Glucose 105, Calcium 8.3 L 04/13/22 13:20: WBC 9.3, RBC 2.34 L, Hgb 6.9 L, Hct 21.3 L, MCV 91.0, MCH 29.5, MCHC 32.4, RDW Std Deviation 43.2, RDW Coeff of Marta 13.2, Plt Count 223, MPV 9.4, Immature Gran % (Auto) 0.900, Neut % (Auto) 72.1 H, Lymph % (Auto) 12.9 L, [place] % (Auto) 11.1 H, Eos % (Auto) 2.7, Baso % (Auto) 0.3, Absolute Neuts (auto) 6.7, Absolute Lymphs (auto) 1.20, Nucleated RBC % 0.2
[2022-04-13] MEDS: Potassium Chloride Oral Tablet 20 MEQ 40 MEQ PO (16:02)
[2022-04-13] MEDS: oxyCODONE 5 MG Tablet PO (16:02)
[2022-04-13] MEDS: Lidocaine Jelly 2% 20 ML Syringe (URO-JET) 1 APPLIC (16:03)
--- NOTE | 2022-04-13 16:09 | NURSING ---
This RN manually irrigated pt's ellison d/t bladder spasms and stopped flow. Resulted in many small clots, a few large clots. After removing as many clots as possible, this RN notified Dr Mejia about reoccuring clots. Dr Mejia came to [facility] and removed currently catheter and replaced with three way catheter. CBI was initiated again. Urine is much more clear with very little clots. Will continue to monitor
[2022-04-14] VITALS (11 sets, daily range): BP systolic 111–139; BP diastolic 59–86; PULSE 86–108; RESP 16–20; TEMP 36.6–37.1; O2SAT 94–97
[2022-04-14] MEDS: MELATONIN 3 MG TABLET PO ×2 (00:12→20:46)
[2022-04-14] MEDS: oxyCODONE 5 MG Tablet PO ×4 (00:13→16:56)
[2022-04-14 06:53] LABS: Absolute Lymphocyte Count 0.83 X10^3/uL (0.83-4.51); Absolute Neutrophil Count 7.8 X10^3/uL (2.0-7.7); Basophil# 0.04 X10^3/uL; Basophil% 0.4 % (0-1); Eosinophil# 0.17 X10^3/uL; Eosinophils% 1.7 % (0-5); Hematocrit 23.5 % (40-54); Lymphocyte # 0.83 X10^3/ul (0.83-4.51); Lymphocyte % 8.3 % (19-41); Mean Corpuscular Hgb 30.5 pg (27.0-32.0); Mean Corpuscular Volume 89.7 fL (80-94); Mean Platelet Vol. 9.4 fl (6.2-12.0); Monocyte# 1.18 X10^3/uL; Monocyte% 11.7 % (0-10); NRBC Flagged by Analyzer 0 % (0-5); Neutrophil # 7.78 X10^3/uL (2.7-7.7); Neutrophil % 77.3 % (47-70); Platelet Count 222 K/mm3 (150-450); RBC Distribution Width CV 13.2 % (11.6-14.6); RBC Distribution Width SD 42.8 fl (35.1-43.9); Red Blood Count 2.62 M/mm3 (4.6-6.2); White Blood Count 10.1 K/mm3 (4.4-11.0)
[2022-04-14 07:16] LABS: Anion Gap 7 (5-15); BUN 10 mg/dL (7-18); BUN/Creat Ratio 17.5 RATIO (10-20); Calcium,Total 8.1 mg/dL (8.5-10.1); Chloride 99 mmol/L (98-107); Creatinine, Serum 0.57 mg/dL (0.70-1.30); EST Glomerular Filtration Rate 145 mL/min (>60); Est Glom Filt Rate - Afr Amer 175 mL/min (>60); Estimated Creatinine Clearance 58.81 ml/min; Glucose 118 mg/dL (74-106); Magnesium 1.6 mg/dL (1.6-2.6); Potassium 2.9 mmol/L (3.5-5.1); Sodium Level 131 mmol/L (136-145)
--- NOTE | 2022-04-14 07:17 | PN.HOSP_ITS ---
Subjective Subjective Still with left ankle pain. Objective Data Objective Data Vital Signs: Vital Signs Temp Pulse Resp BP Pulse Ox O2 Del Method O2 Flow Rate 36.9 C 102 H 20 H 139/86 H 95 Room Air 3 04/14/22 02:17 04/14/22 02:17 04/14/22 02:17 04/14/22 02:17 04/14/22 07:11 04/14/22 07:11 04/13/22 05:03 FiO2 2 04/13/22 05:03 Oxygen Flow Rate (L/min) 3 Oxygen Delivery Method Room Air Weight: 115.1 kg Body Mass Index (BMI) 36.3 Intake & Output: Intake and Output for Last 24 Hours 04/12/22 04/13/22 04/14/22 23:59 23:59 23:59 Intake Total 2500 / 3300 5472.5 / 5472.5 600 / 600 Output Total 2500 / 3200 6350 / 6350 1600 / 1600 Balance 0 / 100 -877.5 / -877.5 -1000 / -1000 Lab / Micro Data Result Diagrams: 04/14/22 05:58 04/14/22 05:58 Labs: Laboratory Results - last 24 hr 04/10/22 21:40: Crossmatch See Detail 04/13/22 06:09: Sodium 137, Potassium 3.0 L, Chloride 104, Carbon Dioxide 26.0, Anion Gap 7, BUN 9, Creatinine 0.59 L, Estim Creat Clear Calc 58.81, Est GFR (MDRD) Af Amer 170, Est GFR (MDRD) Non-Af 140, BUN/Creatinine Ratio 15.3, Glucose 105, Calcium 8.3 L 04/13/22 13:20: WBC 9.3, RBC 2.34 L, Hgb 6.9 L, Hct 21.3 L, MCV 91.0, MCH 29.5, MCHC 32.4, RDW Std Deviation 43.2, RDW Coeff of Marta 13.2, Plt Count 223, MPV 9.4, Immature Gran % (Auto) 0.900, Neut % (Auto) 72.1 H, Lymph % (Auto) 12.9 L, [place] % (Auto) 11.1 H, Eos % (Auto) 2.7, Baso % (Auto) 0.3, Absolute Neuts (auto) 6.7, Absolute Lymphs (auto) 1.20, Nucleated RBC % 0.2 04/14/22 05:58: WBC 10.1, RBC 2.62 L, Hgb 8.0 L, Hct 23.5 L, MCV 89.7, MCH 30.5, MCHC 34.0, RDW Std Deviation 42.8, RDW Coeff of Marta 13.2, Plt Count 222, MPV 9.4, Immature Gran % (Auto) 0.600, Neut % (Auto) 77.3 H, Lymph % (Auto) 8.3 L, [place] % (Auto) 11.7 H, Eos % (Auto) 1.7, Baso % (Auto) 0.4, Absolute Neuts (auto) 7.8 H, Absolute Lymphs (auto) 0.83, Nucleated RBC % 0 04/14/22 05:58: Sodium 131 L, Potassium 2.9 L, Chloride 99, Carbon Dioxide 25.0, Anion Gap 7, BUN 10, Creatinine 0.57 L, Estim Creat Clear Calc 58.81, Est GFR (MDRD) Af Amer 175, Est GFR (MDRD) Non-Af 145, BUN/Creatinine Ratio 17.5, Glucose 118 H, Calcium 8.1 L, Magnesium 1.6 Physical Exam Const alert and no apparent distress HEENT head/scalp atraumatic and moist oral mucous membranes Resp normal respiratory effort, no retractions, no use of accessory muscles and clear to auscultation bilaterally Cardio regular rate, regular rhythm, S1 normal heart sound and S2 normal heart sound GI normal to inspection, nondistended, normoactive bowel sounds and soft to palpation Assessment & Plan Assessment/Plan (1) Hematuria, gross: PLAN: Ongoing Coagulation studies shows INR of 1.1 CT showed right hydronephrosis and hydroureter due to a submillimeter calculus in the distal portion of the right ureter. 04/11: Patient went to the operating room on the fifth and underwent cystoscopy and activation of blood clots and cauterization of prostatic bleeding, trans urethral resection of right ureteral orifice, right ureteroscopy laser lithotripsy of stones of distal ureter and basket extraction of fragments and stent placement 04/12: CBI stopped and will observe. Per : Patient will go home with catheter once urine is clear. (2) ABLA (acute blood loss anemia): PLAN: Gross hematuria and acute blood loss anemia Review of labs shows hemoglobin of 7.2 on presentation. His hemoglobin on 04/07/2022 was 10.9 and hemoglobin on 03/21/2022 was 11.9. This should the patient has had at least 3 g drop in his hemoglobin. Patient was typed at the emergency department and 1 unit of blood ordered to be transfused Hold ASA 04/12: Hemoglobin 6.7. Transfuse 1 more unit 04/13: Repeat hemoglobin. Transfuse 1 more unit. 04/14: Hemoglobin 8. Patient has thus far received 3 units of packed red blood cells. (3) Acute urinary retention: PLAN: Likely due to blood clots Catheter in place on Tamsulosin (4) Hypokalemia: PLAN: Hypokalemia Potassium of 3.1 on presentation. Patient received p.o. potassium at the emergency department. Normal saline with potassium supplementation ordered. 2.9 today. Continue with twice daily 40 mill equivalents twice daily and will also give another 40 mg IV. Corrected magnesium (5) Hypomagnesemia: PLAN: Replace (6) Left ankle pain: PLAN: Atraumatic. Mild tenderness palpation. Could be a gout flare though the patient's never had a gout flare before. Supportive management for now. Concern for gout flare though the patient has never had a gout flare before. Patient does take prednisone daily but will put him on a prednisone taper to see if that helps. I have extremely low suspicion for this being infectious. PLAN: Plan Chronic conditions: * Hypertension: fair control. Amlodipine, lisinopril, and hydrochlorothiazide continued. * Bilateral lower extremity edema: Sim wrap ordered. * CKD stage IIIa: Stable DVT prophylaxis: Scd Charges/Coding Visit Charges Inpatient E&M: 93448 Subs Hosp L2
--- NOTE | 2022-04-14 07:30 | PCM.CONS.B ---
Consult Date of Consult: 04/14/22 Reason for Consult urine clear today no more clots stop CBI and lets see if bleeding has stopped?
[2022-04-14] MEDS: Potassium Chloride Oral Tablet 20 MEQ 40 MEQ PO ×2 (08:00→16:53)
[2022-04-14] MEDS: Tamsulosin HCl 0.4 MG Capsule PO (08:01)
[2022-04-14] MEDS: amLODIPine 10 MG Tablet PO (08:01)
[2022-04-14] MEDS: hydroCHLOROthiazide 25 MG Tablet PO (08:01)
[2022-04-14] MEDS: Pantoprazole Sodium 20 MG Tablet PO (08:01)
[2022-04-14] MEDS: Tolterodine Tartrate 2 MG CAP.SA PO (08:01)
[2022-04-14] MEDS: Lisinopril 20 MG Tablet PO (08:02)
[2022-04-14] MEDS: Metoprolol(XL)Succ 25 MG Tablet PO (08:02)
[2022-04-14] MEDS: predniSONE 5 MG Tablet PO (08:07)
--- NOTE | 2022-04-14 11:04 | EKG12_ITS ---
Test Reason : CP Blood Pressure : / mmHG Vent. Rate : 103 BPM Atrial Rate : 103 BPM P-R Int : 212 ms QRS Dur : 102 ms QT Int : 352 ms P-R-T Axes : 048 007 026 degrees QTc Int : 461 ms Sinus tachycardia with 1st degree A-V block with Premature atrial complexes Otherwise normal ECG When compared with ECG of 11-APR-2022 04:47, Premature ventricular complexes are no longer Present Confirmed by BOONE KEITH, FARHAT ([id number]), editor in chief MADELINE AKERS ([id number]) on 04/19/2022 11:13:01 AM Referred By: KEVIN Confirmed By:TEJ SHOOK MD
[2022-04-14] MEDS: Potassium Chloride 10mEq/100mL 10 MEQ/100 ML IV.SOLN. 100 MEQ IV BOLUS ×4 (11:10→14:29)
[2022-04-14] MEDS: ABIRATERONE ACETATE 250 MG TABLET 1000 MG PO (11:11)
[2022-04-14] MEDS: predniSONE 20 MG Tablet 40 MG PO (11:15)
[2022-04-14] MEDS: Finasteride 5 MG Tablet PO (11:23)
[2022-04-14] MEDS: KCL 40mEq in 0.9% NS 40 MEQ/1,000 ML IV.SOLN 75 MEQ IV (11:46)
[2022-04-14 12:26] LABS: Troponin-I HS 252 pg/mL (3.0-78.0)
--- NOTE | 2022-04-14 12:30 | NURSING ---
co chest pain , ekg completed, trop drawn 255, Dr Velazquez notified
--- NOTE | 2022-04-14 12:57 | ECHOD_ITS ---
Reason For Study: Elevated Troponins Procedure This was a 2D Doppler, Color Flow transthoracic echocardiogram. Exam performed portable in patient room. Left Ventricle Normal LV size. The estimated ejection fraction is 60-65 %. Diastolic function is indeterminate. No regional wall motion abnormalities noted. Right Ventricle Normal RV size. Normal systolic function. Atria The left atrium is mildly enlarged. Normal right atrium. No doppler evidence for ASD. Mitral Valve There is moderate to severe mitral annular calcification. Mild mitral valve stenosis. No mitral valve insufficiency. Tricuspid Valve There is no tricuspid stenosis. Trivial tricuspid valve insufficiency. Pulmonary artery systolic pressure is 35 mmHg. Aortic Valve Moderate diffuse aortic valve thickening. Severe aortic stenosis. No aortic valve insufficiency. Pulmonic Valve There is no pulmonic valvular stenosis. No pulmonic valve insufficiency. Great Vessels Normal aortic root. Pericardium/Pleural No pericardial effusion. MMode/2D Measurements & Calculations LVIDd: 4.9 cm IVSd: 1.5 cm LVOT diam: 2.1 cm LVIDs: 3.1 cm LVPWd: 1.3 cm LVOT area: 3.4 cm2 RVDd: 4.3 cm FS: 37.3 % Ao root diam: 4.1 cm LAV(MOD-bp): 105.2 ml LA A4 area: 28.5 cm2 LA dimension: 4.7 cm LAV(MOD-bp) Indexed: 45.6 ml/m2 LAV(MOD-sp2): 116.0 ml LAV(MOD-sp4): 92.6 ml Time Measurements MV dec time: 0.22 sec Doppler Measurements & Calculations MV E max grant: 128.3 cm/sec Lat Peak E' Grant: 12.3 cm/sec Med Peak E' Grant: 7.1 cm/sec E/E' lat: 10.4 E/E' med: 18.1 MV V2 max: 197.2 cm/sec MV P1/2t max grant: 131.1 cm/sec Ao V2 max: 429.7 cm/sec MV max P.6 mmHg MV P1/2t: 73.5 msec Ao max P.9 mmHg MV V2 mean: 108.6 cm/sec MV dec slope: 522.3 cm/sec2 Ao V2 mean: 309.1 cm/sec MV mean P.6 mmHg MVA(P1/2t): 3.0 cm2 Ao mean P.4 mmHg MV V2 VTI: 40.8 cm Ao V2 VTI: 80.6 cm MVA(VTI): 1.9 cm2 AV (velocity ratio): 0.28 RADHA(I,D): 0.95 cm2 RADHA(V,D): 0.97 cm2 LV V1 max: 121.3 cm/sec SV(LVOT): 76.6 ml PA V2 max: 125.0 cm/sec LV V1 max P.9 mmHg LV V1 mean P.8 mmHg LV V1 mean: 76.5 cm/sec LV V1 VTI: 22.2 cm TR max grant: 278.4 cm/sec TR max P.0 mmHg ECHO/Echo Complete Interpretation Summary The estimated ejection fraction is 60-65 %. Diastolic function is indeterminate. The left atrium is mildly enlarged. Mild mitral valve stenosis. Severe aortic stenosis. Ordering Physician: Wilber Velazquez Referring Physician: Darrin Ramirez Performed By: Juan Wise RCS
[2022-04-14] MEDS: Furosemide 40 MG/4 ML Vial IV (13:10)
--- NOTE | 2022-04-14 13:21 | NURSING ---
trop 252 Dr preciado aware initiated telemetry sr 1st degree, echo being done @ bedside
[2022-04-14 13:59] LABS: Troponin-I HS 288 pg/mL (3.0-78.0)
[2022-04-14 15:01] LABS: Uric Acid 2.9 mg/dL (3.5-7.2)
[2022-04-14 15:15] LABS: Absolute Lymphocyte Count 0.46 X10^3/uL (0.83-4.51); Absolute Neutrophil Count 11.3 X10^3/uL (2.0-7.7); Basophil# 0.02 X10^3/uL; Basophil% 0.2 % (0-1); Eosinophil# 0.01 X10^3/uL; Eosinophils% 0.1 % (0-5); Hematocrit 24.4 % (40-54); Hemoglobin 8.1 g/dL (13.0-16.5); Lymphocyte # 0.46 X10^3/ul (0.83-4.51); Lymphocyte % 3.6 % (19-41); Mean Corp Hgb Conc 33.2 g/dL (32-36); Mean Corpuscular Hgb 29.7 pg (27.0-32.0); Mean Corpuscular Volume 89.4 fL (80-94); Mean Platelet Vol. 9.4 fl (6.2-12.0); Monocyte# 0.73 X10^3/uL; Monocyte% 5.8 % (0-10); NRBC Flagged by Analyzer 0 % (0-5); Neutrophil # 11.25 X10^3/uL (2.7-7.7); Neutrophil % 89.1 % (47-70); POSITIVE DIFFERENTIAL YES; Platelet Count 248 K/mm3 (150-450); RBC Distribution Width CV 13.2 % (11.6-14.6); RBC Distribution Width SD 42.9 fl (35.1-43.9); Red Blood Count 2.73 M/mm3 (4.6-6.2); White Blood Count 12.6 K/mm3 (4.4-11.0)
[2022-04-14 15:52] LABS: Differential Indicated SCAN CRITERIA MET
[2022-04-14 16:26] LABS: Differential Comment SCANNED
[2022-04-14 18:35] LABS: Troponin-I HS 311 pg/mL (3.0-78.0)
[2022-04-14] MEDS: 0.9% Saline Lock 10 ML Syringe IV (20:47)
[2022-04-15] VITALS (16 sets, daily range): BP systolic 109–130; BP diastolic 69–86; PULSE 68–88; RESP 16–20; TEMP 36.5–37; O2SAT 92–97
[2022-04-15 05:41] LABS: Absolute Lymphocyte Count 0.77 X10^3/uL (0.83-4.51); Absolute Neutrophil Count 9.5 X10^3/uL (2.0-7.7); Basophil# 0.02 X10^3/uL; Basophil% 0.2 % (0-1); Eosinophil# 0.04 X10^3/uL; Eosinophils% 0.4 % (0-5); Hematocrit 21.5 % (40-54); Hemoglobin 7.4 g/dL (13.0-16.5); Lymphocyte # 0.77 X10^3/ul (0.83-4.51); Lymphocyte % 6.8 % (19-41); Mean Corp Hgb Conc 34.4 g/dL (32-36); Mean Corpuscular Hgb 30.6 pg (27.0-32.0); Mean Corpuscular Volume 88.8 fL (80-94); Mean Platelet Vol. 9.4 fl (6.2-12.0); Monocyte# 1.01 X10^3/uL; Monocyte% 8.9 % (0-10); NRBC Flagged by Analyzer 0 % (0-5); Neutrophil # 9.46 X10^3/uL (2.7-7.7); Platelet Count 235 K/mm3 (150-450); RBC Distribution Width CV 13.2 % (11.6-14.6); RBC Distribution Width SD 42.7 fl (35.1-43.9); Red Blood Count 2.42 M/mm3 (4.6-6.2); White Blood Count 11.4 K/mm3 (4.4-11.0)
[2022-04-15 06:06] LABS: Anion Gap 7 (5-15); BUN 13 mg/dL (7-18); Calcium,Total 8.4 mg/dL (8.5-10.1); Chloride 98 mmol/L (98-107); Creatinine, Serum 0.68 mg/dL (0.70-1.30); EST Glomerular Filtration Rate 118 mL/min (>60); Est Glom Filt Rate - Afr Amer 142 mL/min (>60); Estimated Creatinine Clearance 58.81 ml/min; Glucose 146 mg/dL (74-106); Magnesium 2.1 mg/dL (1.6-2.6); Potassium 3.1 mmol/L (3.5-5.1); Sodium Level 131 mmol/L (136-145)
--- NOTE | 2022-04-15 07:14 | PN.HOSP_ITS ---
Subjective Subjective Left ankle feeling better Objective Data Objective Data Vital Signs: Vital Signs Temp Pulse Resp BP Pulse Ox O2 Del Method O2 Flow Rate 36.6 C 73 18 110/69 94 Room Air 2 04/15/22 02:13 04/15/22 04:56 04/15/22 02:13 04/15/22 02:13 04/15/22 02:13 04/15/22 02:13 04/14/22 14:00 FiO2 2 04/14/22 02:17 Oxygen Flow Rate (L/min) 2 Oxygen Delivery Method Room Air Weight: 115.1 kg Body Mass Index (BMI) 36.3 Intake & Output: Intake and Output for Last 24 Hours 04/13/22 04/14/22 04/15/22 23:59 23:59 23:59 Intake Total 5472.5 / 5472.5 3412.33 / 3412.33 400 / 400 Output Total 6350 / 6350 6000 / 6000 800 / 800 Balance -877.5 / -877.5 -2587.67 / -2587.67 -400 / -400 Lab / Micro Data Result Diagrams: 04/15/22 04:48 04/15/22 04:48 Labs: Laboratory Results - last 24 hr 04/14/22 05:58: Sodium 131 L, Potassium 2.9 L, Chloride 99, Carbon Dioxide 25.0, Anion Gap 7, BUN 10, Creatinine 0.57 L, Estim Creat Clear Calc 58.81, Est GFR (MDRD) Af Amer 175, Est GFR (MDRD) Non-Af 145, BUN/Creatinine Ratio 17.5, Glucose 118 H, Calcium 8.1 L, Magnesium 1.6 04/14/22 11:33: Troponin I High Sens 252 H* 04/14/22 13:10: Troponin I High Sens 288 H* 04/14/22 13:10: Uric Acid 2.9 L 04/14/22 14:55: WBC 12.6 H, RBC 2.73 L, Hgb 8.1 L, Hct 24.4 L, MCV 89.4, MCH 29.7, MCHC 33.2, RDW Std Deviation 42.9, RDW Coeff of Marta 13.2, Plt Count 248, MPV 9.4, Immature Gran % (Auto) 1.200 H, Neut % (Auto) 89.1 H, Lymph % (Auto) 3.6 L, [place] % (Auto) 5.8, Eos % (Auto) 0.1, Baso % (Auto) 0.2, Absolute Neuts (auto) 11.3 H, Absolute Lymphs (auto) 0.46 L, Nucleated RBC % 0, Differential Comment SCANNED 04/14/22 17:50: Troponin I High Sens 311 H* 04/15/22 04:48: WBC 11.4 H, RBC 2.42 L, Hgb 7.4 L, Hct 21.5 L, MCV 88.8, MCH 30.6, MCHC 34.4, RDW Std Deviation 42.7, RDW Coeff of Marta 13.2, Plt Count 235, MPV 9.4, Immature Gran % (Auto) 0.700, Neut % (Auto) 83.0 H, Lymph % (Auto) 6.8 L, [place] % (Auto) 8.9, Eos % (Auto) 0.4, Baso % (Auto) 0.2, Absolute Neuts (auto) 9.5 H, Absolute Lymphs (auto) 0.77 L, Nucleated RBC % 0 04/15/22 04:48: Sodium 131 L, Potassium 3.1 L, Chloride 98, Carbon Dioxide 26.0, Anion Gap 7, BUN 13, Creatinine 0.68 L, Estim Creat Clear Calc 58.81, Est GFR (MDRD) Af Amer 142, Est GFR (MDRD) Non-Af 118, BUN/Creatinine Ratio 19.0, Gl ucose 146 H, Calcium 8.4 L, Magnesium 2.1 Radiography Diagnostic Testing: Radiology Impression Echocardiogram 04/14/22 12:57 Interpretation Summary The estimated ejection fraction is 60-65 %. Diastolic function is indeterminate. The left atrium is mildly enlarged. Mild mitral valve stenosis. Severe aortic stenosis. Ordering Physician: Wilber Velazquez Referring Physician: Darrin Ramirez Performed By: Juan Wise RCS Physical Exam Const alert and no apparent distress Neck no lymphadenopathy Resp normal respiratory effort, no retractions, no use of accessory muscles and clear to auscultation bilaterally Cardio regular rate and regular rhythm Cardio Narrative: 3-6 systolic ejection murmur at the right sternal border GI normal to inspection, nondistended, normoactive bowel sounds and soft to pal pation Extremity Extremity Narrative: 2+ lower extremity edema Neuro oriented x3 Assessment & Plan Assessment/Plan (1) Hematuria, gross: PLAN: Ongoing Coagulation studies shows INR of 1.1 CT showed right hydronephrosis and hydroureter due to a submillimeter calculus in the distal portion of the right ureter. 04/11: Patient went to the operating room on the and underwent cystoscopy and activation of blood clots and cauterization of prostatic bleeding, transurethral resection of right ureteral orifice, right ureteroscopy laser lithotripsy of stones of distal ureter and basket extraction of fragments and stent placement 04/12: CBI stopped and will observe. 04/15: Improving Per : Patient will go home with catheter once urine is clear. (2) ABLA (acute blood loss anemia): PLAN: Gross hematuria and acute blood loss anemia Review of labs shows hemoglobin of 7.2 on presentation. His hemoglobin on 04/07/2022 was 10.9 and hemoglobin on 03/21/2022 was 11.9. This should the patient has had at least 3 g drop in his hemoglobin. Patient was typed at the emergency department and 1 unit of blood ordered to be transfused Hold ASA 04/12: Hemoglobin 6.7. Transfuse 1 more unit 04/13: Repeat hemoglobin. Transfuse 1 more unit. 04/14: Hemoglobin 8. Patient has thus far received 3 units of packed red blood cells. 04/15: Hg 7.4. Transfuse 1 unit to keep Hg greater than or equal to 8 given elevated troponins. (3) Acute urinary retention: PLAN: Likely due to blood clots Catheter in place on Tamsulosin (4) Hypokalemia: PLAN: Hypokalemia Potassium of 3.1 on presentation. Patient received p.o. potassium at the emergency department. Normal saline with potassium supplementation ordered. 2.9 today. Continue with twice daily 40 mill equivalents twice daily and will also give another 40 mg IV. Corrected magnesium (5) Hypomagnesemia: PLAN: Replace (6) Left ankle pain: PLAN: Atraumatic. Mild tenderness palpation. Improved Uric acid only 2.9. Though that can be low during a gout flare seems unlikely this is gout given the fact the patient has never had a catheter before. We will change his prednisone back to his 5 mg daily. (7) Chest pain: PLAN: elevated troponins, likely due to physiologic stress from ABLA, transfusion in patient with severe . echo shows EF of 60-65% severe (Valve area <1 cm2) mild MS (8) Aortic stenosis: PLAN: Aortic valve area less than 1 cm? Recommend patient follow-up with cardiology and see if patient would be a candidate for outpatient TAVR PLAN: Plan Chronic conditions: * Hypertension: fair control. Amlodipine, lisinopril, and hydrochlorothiazide c ontinued. * Bilateral lower extremity edema: Sim wrap ordered. * CKD stage IIIa: Stable DVT prophylaxis: Scd Case discussed with the patient's and daughter. All questions were answered. Greater than 35 minutes of which greater than 50% of time was counseling at bedside to the patient, his and daughter about his findings and the plan with his hematuria, anemia and aortic stenosis. Charges/Coding Visit Charges Inpatient E&M: [address] [facility] Hosp L3
[2022-04-15] MEDS: Tolterodine Tartrate 2 MG CAP.SA PO (08:28)
[2022-04-15] MEDS: Tamsulosin HCl 0.4 MG Capsule PO (08:28)
[2022-04-15] MEDS: predniSONE 20 MG Tablet 40 MG PO (08:28)
[2022-04-15] MEDS: Potassium Chloride Oral Tablet 20 MEQ 40 MEQ PO ×3 (08:28→16:50)
[2022-04-15] MEDS: amLODIPine 10 MG Tablet PO (08:29)
[2022-04-15] MEDS: Metoprolol(XL)Succ 25 MG Tablet PO (08:29)
[2022-04-15] MEDS: Lisinopril 20 MG Tablet PO (08:29)
[2022-04-15] MEDS: Pantoprazole Sodium 20 MG Tablet PO (08:29)
[2022-04-15] MEDS: Finasteride 5 MG Tablet PO (08:33)
--- NOTE | 2022-04-15 09:49 | NURSING ---
This RN is aware of vitals taken by [facility] for this morning. Will continue to monitor.
[2022-04-15] MEDS: ABIRATERONE ACETATE 250 MG TABLET 1000 MG PO (12:13)
--- NOTE | 2022-04-15 12:37 | NURSING ---
[facility] [employer] removed scot around 1145 today. Will monitor output.
[2022-04-15] MEDS: 0.9% Saline Lock 10 ML Syringe IV ×2 (16:50→18:19)
[2022-04-15] MEDS: Acetaminophen 325 MG Tablet 650 MG PO (20:08)
[2022-04-16] VITALS (11 sets, daily range): BP systolic 110–128; BP diastolic 72–85; PULSE 69–88; RESP 16–18; TEMP 36.6–36.9; O2SAT 94–98
[2022-04-16] MEDS: Acetaminophen 325 MG Tablet 650 MG PO ×2 (00:41→04:30)
[2022-04-16] MEDS: MELATONIN 3 MG TABLET PO (00:41)
[2022-04-16] MEDS: oxyCODONE 5 MG Tablet PO (04:29)
[2022-04-16 07:06] LABS: Absolute Lymphocyte Count 1.12 X10^3/uL (0.83-4.51); Absolute Neutrophil Count 5.5 X10^3/uL (2.0-7.7); Basophil# 0.02 X10^3/uL; Basophil% 0.3 % (0-1); Eosinophil# 0.16 X10^3/uL; Eosinophils% 2.1 % (0-5); Hematocrit 25.1 % (40-54); Hemoglobin 8.1 g/dL (13.0-16.5); Lymphocyte # 1.12 X10^3/ul (0.83-4.51); Lymphocyte % 14.8 % (19-41); Mean Corp Hgb Conc 32.3 g/dL (32-36); Mean Corpuscular Hgb 29.3 pg (27.0-32.0); Mean Corpuscular Volume 90.9 fL (80-94); Mean Platelet Vol. 9.5 fl (6.2-12.0); Monocyte# 0.69 X10^3/uL; Monocyte% 9.1 % (0-10); NRBC Flagged by Analyzer 0 % (0-5); Neutrophil # 5.52 X10^3/uL (2.7-7.7); Neutrophil % 72.8 % (47-70); Platelet Count 271 K/mm3 (150-450); RBC Distribution Width CV 13.8 % (11.6-14.6); RBC Distribution Width SD 45.2 fl (35.1-43.9); Red Blood Count 2.76 M/mm3 (4.6-6.2); White Blood Count 7.6 K/mm3 (4.4-11.0)
--- NOTE | 2022-04-16 07:10 | PN.HOSP_ITS ---
Subjective Subjective Still passing clots. [place] catheter was removed yesterday. No further left ankle pain Objective Data Objective Data Vital Signs: Vital Signs Temp Pulse Resp BP Pulse Ox O2 Del Method O2 Flow Rate 37.0 C 77 20 H 122/73 H 94 Room Air 2 04/15/22 18:28 04/16/22 00:13 04/15/22 18:28 04/15/22 18:28 04/15/22 18:28 04/16/22 06:00 04/14/22 14:00 FiO2 2 04/14/22 02:17 Oxygen Flow Rate (L/min) 2 Oxygen Delivery Method Room Air Weight: 115.1 kg Body Mass Index (BMI) 36.3 Intake & Output: Intake and Output for Last 24 Hours 04/14/22 04/15/22 04/16/22 23:59 23:59 23:59 Intake Total 3412.33 / 3412.33 640 / 640 Output Total 6000 / 6000 2800 / 3225 425 / 425 Balance -2587.67 / -2587.67 -2160 / -2585 -425 / -425 Lab / Micro Data Result Diagrams: 04/16/22 06:41 04/16/22 06:41 Labs: Laboratory Results - last 24 hr 04/15/22 04:48: Blood Type A POSITIVE, Antibody Screen NEGATIVE, Crossmatch See Detail Physical Exam Const alert and no apparent distress Resp normal respiratory effort, no retractions, no use of accessory muscles and clear to auscultation bilaterally Cardio regular rate, regular rhythm, S1 normal heart sound and S2 normal heart sound GI normal to inspection, nondistended, normoactive bowel sounds Extremity Extremity Narrative: 2+ lower extremity edema. Assessment & Plan Assessment/Plan (1) Hematuria, gross: PLAN: Ongoing Coagulation studies shows INR of 1.1 CT showed right hydronephrosis and hydroureter due to a submillimeter calculus in the distal portion of the right ureter. 04/11: Patient went to the operating room on the and underwent cystoscopy and activation of blood clots and cauterization of prostatic bleeding, transurethral resection of right ureteral orifice, right ureteroscopy laser lithotripsy of stones of distal ureter and basket extraction of fragments and stent placement 04/12: CBI stopped and will observe. 04/15: Improving 04/16: Catheter removed on the but patient still continued to have clots. Seen by urology and the plan is for a TURP on the . (2) ABLA (acute blood loss anemia): PLAN: Gross hematuria and acute blood loss anemia Review of labs shows hemoglobin of 7.2 on presentation. His hemoglobin on 04/07/2022 was 10.9 and hemoglobin on 03/21/2022 was 11.9. This should the patient has had at least 3 g drop in his hemoglobin. Patient was typed at the emergency department and 1 unit of blood ordered to be transfused Hold ASA 04/12: Hemoglobin 6.7. Transfuse 1 more unit 04/13: Repeat hemoglobin. Transfuse 1 more unit. 04/14: Hemoglobin 8. Patient has thus far received 3 units of packed red blood cells. 04/15: Hg 7.4. Transfuse 1 unit to keep Hg greater than or equal to 8 given elevated troponins. 04/16: Hemoglobin 8.1. Hold off on transfusion. Follow-up tomorrow. (3) Acute urinary retention: PLAN: Likely due to blood clots Catheter in place on Tamsulosin (4) Hypokalemia: PLAN: Resolved Potassium of 3.1 on presentation. Patient received p.o. potassium at the emergency department. Normal saline with potassium supplementation ordered. 2.9 today. Continue with twice daily 40 mill equivalents twice daily and will also give another 40 mg IV. Corrected magnesium (5) Hypomagnesemia: PLAN: Replace (6) Left ankle pain: QUALIFIERS: Chronicity: acute Qualified Code(s): M25.572 - Pain in left ankle and joints of left foot PLAN: Resolved atraumatic. Mild tenderness palpation. Improved Uric acid only 2.9. Though that can be low during a gout flare seems unlikely this is gout given the fact the patient has never had a catheter before. We will change his prednisone back to his 5 mg daily. (7) Chest pain: QUALIFIERS: Chest pain type: other chest pain Qualified Code(s): R07.89 - Other chest pain PLAN: elevated troponins, likely due to physiologic stress from ABLA, transfusion in patient with severe . echo shows EF of 60-65% severe (Valve area <1 cm2) mild MS (8) Aortic stenosis: QUALIFIERS: Cardiac valve disease etiology: nonrheumatic Qualified Code(s): I35.0 - Nonrheumatic aortic (valve) stenosis PLAN: Aortic valve area less than 1 cm? Recommend patient follow-up with cardiology and see if patient would be a candidate for outpatient TAVR PLAN: Plan Chronic conditions: * Hypertension: fair control. Amlodipine, lisinopril, and hydrochlorothiazide continued. * Bilateral lower extremity edema: Sim wrap ordered. * CKD stage IIIa: Stable DVT prophylaxis: Scd Charges/Coding Visit Charges Inpatient E&M: 69266 Subs Hosp L2
[2022-04-16 07:37] LABS: Anion Gap 5 (5-15); BUN 15 mg/dL (7-18); BUN/Creat Ratio 19.3 RATIO (10-20); Calcium,Total 8.6 mg/dL (8.5-10.1); Chloride 105 mmol/L (98-107); Creatinine, Serum 0.78 mg/dL (0.70-1.30); EST Glomerular Filtration Rate 102 mL/min (>60); Est Glom Filt Rate - Afr Amer 123 mL/min (>60); Estimated Creatinine Clearance 58.81 ml/min; Glucose 99 mg/dL (74-106); Potassium 4.3 mmol/L (3.5-5.1); Sodium Level 136 mmol/L (136-145)
[2022-04-16] MEDS: Potassium Chloride Oral Tablet 20 MEQ 40 MEQ PO ×2 (08:49→12:06)
[2022-04-16] MEDS: predniSONE 5 MG Tablet PO (08:49)
--- NOTE | 2022-04-16 08:49 | PN.URO_ITS ---
Subjective Subjective urine was clear on Monday, we removed ellison for a voiding trial but now able to void but passing blood in clots. will take him to surgery tomorrow for a TURP to hopefully stop bleeding. Objective Data Objective Data Vital Signs: Vital Signs Temp Pulse Resp BP Pulse Ox O2 Del Method O2 Flow Rate 98.0 F 76 16 128/77 H 96 Room Air 2 04/16/22 08:45 04/16/22 08:45 04/16/22 08:45 04/16/22 08:45 04/16/22 08:45 04/16/22 08:45 04/14/22 14:00 FiO2 2 04/14/22 02:17 Oxygen Flow Rate (L/min) 2 Oxygen Delivery Method Room Air Weight: 115.1 kg Body Mass Index (BMI) 36.3 Intake & Output: Intake and Output for Last 24 Hours 04/14/22 04/15/22 04/16/22 23:59 23:59 23:59 Intake Total 3412.33 / 3412.33 640 / 640 Output Total 6000 / 6000 2800 / 3225 2124 / 2124 Balance -2587.67 / -2587.67 -2160 / -2585 -2125 / -2124 Lab / Micro Data Result Diagrams: 04/16/22 06:41 04/16/22 06:41 Labs: Laboratory Results - last 24 hr 04/15/22 04:48: Blood Type A POSITIVE, Antibody Screen NEGATIVE, Crossmatch See Detail 04/16/22 06:41: WBC 7.6, RBC 2.76 L, Hgb 8.1 L, Hct 25.1 L, MCV 90.9, MCH 29.3, MCHC 32.3 D, RDW Std Deviation 45.2 H, RDW Coeff of Marta 13.8, Plt Count 271, MPV 9.5, Immature Gran % (Auto) 0.900, Neut % (Auto) 72.8 H, Lymph % (Auto) 14.8 L, [place] % (Auto) 9.1, Eos % (Auto) 2.1, Baso % (Auto) 0.3, Absolute Neuts (auto) 5.5, Absolute Lymphs (auto) 1.12, Nucleated RBC % 0 04/16/22 06:41: Sodium 136, Potassium 4.3, Chloride 105, Carbon Dioxide 26.0, An ion Gap 5, BUN 15, Creatinine 0.78, Estim Creat Clear Calc 58.81, Est GFR (MDRD) Af Amer 123, Est GFR (MDRD) Non-Af 102, BUN/Creatinine Ratio 19.3, Glucose 99, Calcium 8.6
[2022-04-16] MEDS: Pantoprazole Sodium 20 MG Tablet PO (08:50)
[2022-04-16] MEDS: Metoprolol(XL)Succ 25 MG Tablet PO (08:50)
[2022-04-16] MEDS: Tolterodine Tartrate 2 MG CAP.SA PO (08:50)
[2022-04-16] MEDS: Lisinopril 20 MG Tablet PO (08:50)
[2022-04-16] MEDS: ABIRATERONE ACETATE 250 MG TABLET 1000 MG PO (08:51)
[2022-04-16] MEDS: Finasteride 5 MG Tablet PO (08:51)
[2022-04-16] MEDS: Tamsulosin HCl 0.4 MG Capsule PO (08:52)
[2022-04-16] MEDS: amLODIPine 10 MG Tablet PO (16:42)
[2022-04-16] MEDS: Pramipexole Di-HCl 0.125 MG Tablet PO (22:09)
[2022-04-17] VITALS (7 sets, daily range): BP systolic 132–138; BP diastolic 92–97; PULSE 82–85; RESP 16–18; TEMP 36.4–37.1; O2SAT 97–99
[2022-04-17] MEDS: MELATONIN 3 MG TABLET PO (01:59)
[2022-04-17 05:57] LABS: Absolute Lymphocyte Count 1.12 X10^3/uL (0.83-4.51); Absolute Neutrophil Count 4.7 X10^3/uL (2.0-7.7); Basophil# 0.04 X10^3/uL; Basophil% 0.6 % (0-1); Eosinophil# 0.35 X10^3/uL; Hematocrit 27.4 % (40-54); Hemoglobin 9.1 g/dL (13.0-16.5); Lymphocyte # 1.12 X10^3/ul (0.83-4.51); Lymphocyte % 16.1 % (19-41); Mean Corp Hgb Conc 33.2 g/dL (32-36); Mean Corpuscular Hgb 30.1 pg (27.0-32.0); Mean Corpuscular Volume 90.7 fL (80-94); Mean Platelet Vol. 9.2 fl (6.2-12.0); Monocyte# 0.61 X10^3/uL; Monocyte% 8.8 % (0-10); NRBC Flagged by Analyzer 0 % (0-5); Neutrophil # 4.73 X10^3/uL (2.7-7.7); Neutrophil % 68.1 % (47-70); Platelet Count 295 K/mm3 (150-450); RBC Distribution Width CV 13.6 % (11.6-14.6); RBC Distribution Width SD 44.9 fl (35.1-43.9); Red Blood Count 3.02 M/mm3 (4.6-6.2)
[2022-04-17 06:30] LABS: International Normalized Ratio 1.1; Prothrombin Time (Protime)PT. 13.6 SECONDS (11.7-14.9)
[2022-04-17 06:41] LABS: AST(SGOT) 21 U/L (15-37); Alanine Aminotransfer ALT/SGPT 20 U/L (16-61); Albumin, Serum 2.5 g/dL (3.2-5.0); Alkaline Phosphatase 66 U/L (45-117); Anion Gap 6 (5-15); BUN 14 mg/dL (7-18); BUN/Creat Ratio 21.4 RATIO (10-20); Bilirubin, Direct 0.16 mg/dL (0.00-0.30); Calcium,Total 8.7 mg/dL (8.5-10.1); Chloride 106 mmol/L (98-107); Creatinine, Serum 0.65 mg/dL (0.70-1.30); EST Glomerular Filtration Rate 124 mL/min (>60); Est Glom Filt Rate - Afr Amer 150 mL/min (>60); Estimated Creatinine Clearance 58.81 ml/min; Globulin 4.4 g/dL (2.2-4.2); Glucose 94 mg/dL (74-106); Potassium 3.5 mmol/L (3.5-5.1); Protein, Total 6.9 g/dL (6.4-8.2); Sodium Level 138 mmol/L (136-145)
--- NOTE | 2022-04-17 07:24 | PN.HOSP_ITS ---
Subjective Subjective No further hematuria nor clots. The cystoscopy was canceled today as his urine has remained clear. Objective Data Objective Data Vital Signs: Vital Signs Temp Pulse Resp BP Pulse Ox O2 Del Method O2 Flow Rate 36.7 C 85 16 138/97 H 98 Room Air 2 04/17/22 06:36 04/17/22 06:36 04/17/22 06:36 04/17/22 06:36 04/17/22 06:36 04/17/22 06:36 04/14/22 14:00 FiO2 2 04/14/22 02:17 Oxygen Flow Rate (L/min) 2 Oxygen Delivery Method Room Air Weight: 115.1 kg Body Mass Index (BMI) 36.3 Intake & Output: Intake and Output for Last 24 Hours 04/15/22 04/16/22 04/17/22 23:59 23:59 23:59 Intake Total 640 / 640 400 / 400 400 / 400 Output Total 2800 / 3225 5575 / 5575 1550 / 1550 Balance -2160 / -2585 -5175 / -5175 -1150 / -1150 Lab / Micro Data Result Diagrams: 04/17/22 04:57 04/17/22 04:57 Labs: Laboratory Results - last 24 hr 04/16/22 06:41: Sodium 136, Potassium 4.3, Chloride 105, Carbon Dioxide 26.0, Anion Gap 5, BUN 15, Creatinine 0.78, Estim Creat Clear Calc 58.81, Est GFR (MDRD) Af Amer 123, Est GFR (MDRD) Non-Af 102, BUN/Creatinine Ratio 19.3, Glucose 99, Calcium 8.6 04/17/22 04:57: WBC 7.0, RBC 3.02 L, Hgb 9.1 L, Hct 27.4 L, MCV 90.7, MCH 30.1, MCHC 33.2, RDW Std Deviation 44.9 H, RDW Coeff of Marta 13.6, Plt Count 295, MPV 9.2, Immature Gran % (Auto) 1.400 H, Neut % (Auto) 68.1, Lymph % (Auto) 16.1 L, [place] % (Auto) 8.8, Eos % (Auto) 5.0, Baso % (Auto) 0.6, Absolute Neuts (auto) 4.7, Absolute Lymphs (auto) 1.12, Nucleated RBC % 0 04/17/22 04:57: Sodium 138, Potassium 3.5, Chloride 106, Carbon Dioxide 26.0, Anion Gap 6, BUN 14, Creatinine 0.65 L, Estim Creat Clear Calc 58.81, Est GFR (MDRD) Af Amer 150, Est GFR (MDRD) Non-Af 124, BUN/Creatinine Ratio 21.4 H, Glucose 94, Calcium 8.7, Total Bilirubin 0.40, Direct Bilirubin 0.16, AST 21, ALT 20, Alkaline Phosphatase 66, Total Protein 6.9, Albumin 2.5 L, Globulin 4.4 H 04/17/22 04:57: PT 13.6, INR 1.1, APTT 30.0 Physical Exam Const alert and no apparent distress Resp normal respiratory effort, no retractions, no use of accessory muscles and clear to auscultation bilaterally Cardio regular rate, regular rhythm, S1 normal heart sound and S2 normal heart sound GI normal to inspection, nondistended, normoactive bowel sounds and soft to palpation Assessment & Plan Assessment/Plan (1) Hematuria, gross: PLAN: Ongoing Coagulation studies shows INR of 1.1 CT showed right hydronephrosis and hydroureter due to a submillimeter calculus in the distal portion of the right ureter. 04/11: Patient went to the operating room on the and underwent cystoscopy and activation of blood clots and cauterization of prostatic bleeding, transurethral resection of right ureteral orifice, right ureteroscopy laser lithotripsy of stones of distal ureter and basket extraction of fragments and stent placement 04/12: CBI stopped and will observe. 04/15: Improving 04/16: Catheter removed on the but patient still continued to have clots. Seen by urology and the plan is for a TURP on the . 04/17: Hematuria resolved. No cystoscopy at this time. (2) ABLA (acute blood loss anemia): PLAN: Gross hematuria and acute blood loss anemia Review of labs shows hemoglobin of 7.2 on presentation. His hemoglobin on 04/07/2022 was 10.9 and hemoglobin on 03/21/2022 was 11.9. This should the patient has had at least 3 g drop in his hemoglobin. Patient was typed at the emergency department and 1 unit of blood ordered to be transfused Hold ASA 04/12: Hemoglobin 6.7. Transfuse 1 more unit 04/13: Repeat hemoglobin. Transfuse 1 more unit. 04/14: Hemoglobin 8. Patient has thus far received 3 units of packed red blood cells. 04/15: Hg 7.4. Transfuse 1 unit to keep Hg greater than or equal to 8 given elevated troponins. 04/16: Hemoglobin 8.1. Hold off on transfusion. Follow-up tomorrow. 04/17: Hemoglobin 9.1. No transfusions necessary. (3) Acute urinary retention: PLAN: Likely due to blood clots on Tamsulosin Catheter removed. (4) Hypokalemia: PLAN: Resolved Potassium of 3.1 on presentation. Patient received p.o. potassium at the emergency department. Normal saline with potassium supplementation ordered. 2.9 today. Continue with twice daily 40 mill equivalents twice daily and will also give another 40 mg IV. Corrected magnesium (5) Hypomagnesemia: PLAN: Replace (6) Left ankle pain: QUALIFIERS: Chronicity: acute Qualified Code(s): M25.572 - Pain in left ankle and joints of left foot PLAN: Resolved atraumatic. Mild tenderness palpation. Improved Uric acid only 2.9. Though that can be low during a gout flare seems unlikely this is gout given the fact the patient has never had a catheter before. We will change his prednisone back to his 5 mg daily. (7) Chest pain: QUALIFIERS: Chest pain type: other chest pain Qualified Code(s): R07.89 - Other chest pain PLAN: elevated troponins, likely due to physiologic stress from ABLA, transfus ion in patient with severe . echo shows EF of 60-65% severe (Valve area <1 cm2) mild MS (8) Aortic stenosis: QUALIFIERS: Cardiac valve disease etiology: nonrheumatic Qualified Code(s): I35.0 - Nonrheumatic aortic (valve) stenosis PLAN: Aortic valve area less than 1 cm? Recommend patient follow-up with cardiology and see if patient would be a candidate for outpatient TAVR PLAN: Plan Chronic conditions: * Hypertension: fair control. Amlodipine, lisinopril, and hydrochlorothiazide continued. * Bilateral lower extremity edema: Sim wrap ordered. * CKD stage IIIa: Stable * Family concern for sleep apnea: Recommend follow with pulmonology for polysomnogram as outpatient.
--- NOTE | 2022-04-17 07:35 | NURSING ---
Dr. Mejia in to see pt and informed this nurse that surgery will be cancelled as pt is urinating clr, yellow urine, no clots.
--- NOTE | 2022-04-17 07:37 | PCM.CONS.B ---
Consult Date of Consult: 04/17/22 Reason for Consult this morning, no more bleeding urine clear he can eat, cancel surgery and from my prespective he can go home. okay to discharge, follow up with urology as outpatient.
--- NOTE | 2022-04-17 09:05 | DCINST_ITS ---
Discharge Instructions Diet Discharge Diet: No restrictions Dressing / Incision Call your doctor if you observe: Shortness of breath, Swelling in the ankles and - (Abdominal pain. Recurrent blood in the urine.) Follow Up Care Test Results: Test results from this visit will be discussed in further detail at your follow- up appointment, if applicable. Discharge Plan Admission Admit Date/Time: 04/10/22 22:00 Primary Reason for Your Visit: Hematuria Attending Provider: Wilber Velazquez Primary Care Provider: Darrin Ramirez Consulting Providers: Cleve Mejia ; Eric Segura Discharge Orders/Prescriptions Prescriptions: New lisinopril 20 mg Tablet 20 mg PO DAILY Qty: 30 0RF furosemide 20 mg tablet 20 mg PO DAILY Qty: 30 0RF Continued metoprolol succinate 25 MG tablet 25 mg PO DAILY Label Comments: blood pressure/heart acidophilus-pectin, citrus 1 TABLET tablet 1 tab PO DAILY Label Comments: probiotic tamsulosin 0.4 mg capsule 1 tab PO BID prednisone 5 mg tablet 5 mg PO QHS Label Comments: TAKE 1 TABLET BY MOUTH ONCE DAILY omeprazole 10 mg capsule,delayed release(DR/EC) 20 mg PO 0800 amlodipine 10 mg tablet 10 mg PO DAILY Label Comments: TAKE 1 TABLET BY MOUTH ONCE DAILY oxybutynin chloride 5 mg tablet extended release 24hr 5 mg PO DAILY finasteride 5 mg tablet 5 mg PO DAILY ketorolac 10 mg tablet 10 mg PO Q6H PRN (Reason: pain) 5 Days Qty: 20 0RF abiraterone 250 mg tablet 1,000 mg PO QHS zinc 10 mg Tablet 10 mg PO DAILY Centrum Silver 0.4 mg-300 mcg- 250 mcg Tablet 1 tab PO DAILY cholecalciferol (vitamin D3) [Vitamin D3] 125 mcg (5,000 unit) Tablet 125 mcg PO DAILY ascorbic acid (vitamin C) 1 tab PO/SL DAILY cephalexin 500 mg capsule 500 mg PO Q8H Held aspirin 81 mg Capsule 81 mg PO DAILY Hold Instructions: Resume on 04/21/22. Discontinued lisinopril-hydrochlorothiazide 20-25 mg tablet 1 tab PO DAILY oxycodone 5 mg Tablet 5 mg PO Q6H PRN (Reason: Pain) Referrals / Follow Up: [facility] [Provider Group] - Within 1 Month (Aortic Stenosis) [facility] [Provider Group] - Within 1 Month (Sleep apnea evaluation. ) Darrin Ramirez MD [Primary Care Provider] - Within 2 Weeks Cleve Mejia MD [Med Staff - Active Staff] - Within 2 Weeks Disposition Disposition (needs filled in before D/C Order can be placed): Home, Self Care
--- NOTE | 2022-04-17 09:10 | DS.PCM_ITS ---
Providers Date of Admission: 04/10/22 Primary Care Physician: Dr. Darrin Ramirez MD Consultations 04/10/22 22:47 Consult: Urology Routine Consulting Provider: Cleve Mejia Reason for Consult: Hematuria EMERGENT Consult: No MD Notified: Yes Date Notified: 04/10/22 Time Notified: 22:06 Method of Notification: ED Physician Initiated Reason For Visit: GROSS HEMATURIA Diagnosis Discharge Diagnosis (1) Hematuria, gross: Status: Acute Code(s): R31.0 - Gross hematuria Plan: Ongoing Coagulation studies shows INR of 1.1 CT showed right hydronephrosis and hydroureter due to a submillimeter calculus in the distal portion of the right ureter. 04/11: Patient went to the operating room on the and underwent cystoscopy and activation of blood clots and cauterization of prostatic bleeding, transurethral resection of right ureteral orifice, right ureteroscopy laser lithotripsy of stones of distal ureter and basket extraction of fragments and stent placement 04/12: CBI stopped and will observe. 04/15: Improving 04/16: Catheter removed on the but patient still continued to have clots. Seen by urology and the plan is for a TURP on the . 04/17: Hematuria resolved. No cystoscopy at this time. (2) ABLA (acute blood loss anemia): Status: Acute Code(s): D62 - Acute posthemorrhagic anemia Plan: Gross hematuria and acute blood loss anemia Review of labs shows hemoglobin of 7.2 on presentation. His hemoglobin on 04/07/2022 was 10.9 and hemoglobin on 03/21/2022 was 11.9. This should the patient has had at least 3 g drop in his hemoglobin. Patient was typed at the emergency department and 1 unit of blood ordered to be transfused Hold ASA 04/12: Hemoglobin 6.7. Transfuse 1 more unit 04/13: Repeat hemoglobin. Transfuse 1 more unit. 04/14: Hemoglobin 8. Patient has thus far received 3 units of packed red blood cells. 04/15: Hg 7.4. Transfuse 1 unit to keep Hg greater than or equal to 8 given elevated troponins. 04/16: Hemoglobin 8.1. Hold off on transfusion. Follow-up tomorrow. 04/17: Hemoglobin 9.1. No transfusions necessary. (3) Acute urinary retention: Status: Inactive Code(s): R33.8 - Other retention of urine Plan: Likely due to blood clots on Tamsulosin Catheter removed. (4) Hypokalemia: Status: Acute Code(s): E87.6 - Hypokalemia Plan: Resolved Potassium of 3.1 on presentation. Patient received p.o. potassium at the emergency department. Normal saline with potassium supplementation ordered. 2.9 today. Continue with twice daily 40 mill equivalents twice daily and will also give another 40 mg IV. Corrected magnesium (5) Hypomagnesemia: Status: Acute Code(s): E83.42 - Hypomagnesemia Plan: Replace (6) Left ankle pain: Status: Acute Code(s): M25.572 - Pain in left ankle and joints of left foot Qualifiers: Chronicity: acute Qualified Code(s): M25.572 - Pain in left ankle and joints of left foot Plan: Resolved atraumatic. Mild tenderness palpation. Improved Uric acid only 2.9. Though that can be low during a gout flare seems unlikely this is gout given the fact the patient has never had a catheter before. We will change his prednisone back to his 5 mg daily. (7) Chest pain: Status: Acute Code(s): R07.9 - Chest pain, unspecified Qualifiers: Chest pain type: other chest pain Qualified Code(s): R07.89 - Other chest pain Plan: elevated troponins, likely due to physiologic stress from ABLA, transfusion in patient with severe . echo shows EF of 60-65% severe (Valve area <1 cm2) mild MS (8) Aortic stenosis: Status: Acute Code(s): I35.0 - Nonrheumatic aortic (valve) stenosis Qualifiers: Cardiac valve disease etiology: nonrheumatic Qualified Code(s): I35.0 - Nonrheumatic aortic (valve) stenosis Plan: Aortic valve area less than 1 cm? Recommend patient follow-up with cardiology and see if patient would be a candidate for outpatient TAVR Plan Chronic conditions: * Hypertension: fair control. Amlodipine, lisinopril, and hydrochlorothiazide continued. * Bilateral lower extremity edema: Sim wrap ordered. * CKD stage IIIa: Stable * Family concern for sleep apnea: Recommend follow with pulmonology for polysomnogram as outpatient. Medications at Discharge Home Medications acidophilus 25 million cell-pectin, citrus 100 mg tablet 1 tab PO DAILY probiotic 03/12/14 metoprolol succinate 25 mg tablet,extended release 24 hr 25 mg PO DAILY HTN 03/12/14 tamsulosin 0.4 mg capsule 1 tab PO BID BPH 12/12/19 amlodipine 10 mg tablet 10 mg PO DAILY HTN 03/21/22 finasteride 5 mg tablet 5 mg PO DAILY BPH 03/21/22 ketorolac 10 mg tablet 10 mg PO Q6H PRN pain 5 days #20 tabs 03/21/22 omeprazole 10 mg capsule,delayed release 20 mg PO 0800 GERD 03/21/22 oxybutynin chloride 5 mg tablet,extended release 24 hr 5 mg PO DAILY bladder 03/21/22 prednisone 5 mg tablet 5 mg PO QHS with chemo pill 03/21/22 abiraterone 250 mg tablet 1,000 mg PO QHS chemo pill 04/10/22 ascorbic acid (vitamin C) 1 tab PO/SL DAILY supplement 04/10/22 aspirin 81 mg capsule 81 mg PO DAILY heart health 04/10/22 cephalexin 500 mg capsule 500 mg PO Q8H antibiotic 04/10/22 cholecalciferol (vitamin D3) 125 mcg (5,000 unit) tablet (Vitamin D3) 125 mcg PO DAILY supplement 04/10/22 doidmfdq-utt-tmser acid 0.4 mg-lycopene 300 mcg-lutein 250 mcg tablet (Centrum Silver) 1 tab PO DAILY supplement 04/10/22 zinc 10 mg tablet 10 mg PO DAILY supplement 04/10/22 furosemide 20 mg tablet 20 mg PO DAILY #30 tabs 04/17/22 lisinopril 20 mg tablet 20 mg PO DAILY #30 tabs 04/17/22 Hospital Course Operations - (Cystoscopy) Procedures 2-D Echocardiogram Summary of Care Provided Minutes Spent on Discharge: 32 Hospital Course: 81-year-old male presents with risa hematuria and blood clots in his urine. Patient was started on irrigation and underwent cystoscopy on the fifth. Patient was noted to have bleeding of his prostate but also had a right ureteral stone that was laminated through laser lithotripsy and stent placement. Patient continued to have hematuria that lasted for several days. On the day of the , the hematuria resolved. In there was a tentative plan to have the patient go to the OR again for a TURP, but that was discontinued as hematuria stopped. Patient was transfused 3 units of packed red blood cells during his admission. Patient's course was complicated with chest pain. Patient is some elevated troponins. Echocardiogram showed normal EF but he patient did have severe aortic stenosis. Patient has had valvular issues in the past but is gotten more severe. Troponin elevation is due to the aortic stenosis on top of his hematuria, requiring transfusions. Patient has been stable. Patient will be recommended to follow-up with cardiology for his aortic stenosis and to see if he would require referral to a specialist for possible valve replacement. Patient did have some transient left ankle pain. Uric acid was very low so not felt to be gout and additionally patient has never had a history of gout. It did resolve on its own. It was atraumatic and etiology of his ankle pain is unclear but appears to be benign. Patient does have lower extremity edema. Patient was on medication with HCTZ. The HCTZ will be discontinued patient will continue with furosemide. Weight / BMI Weight Weight: 115.1 kg Body Mass Index (BMI) 36.3 ABG / Lab / Microbiology Data Result Diagrams: 04/17/22 04:57 04/17/22 04:57 Laboratory: Laboratory Results - last 24 hr 04/17/22 04:57: WBC 7.0, RBC 3.02 L, Hgb 9.1 L, Hct 27.4 L, MCV 90.7, MCH 30.1, MCHC 33.2, RDW Std Deviation 44.9 H, RDW Coeff of Marta 13.6, Plt Count 295, MPV 9.2, Immature Gran % (Auto) 1.400 H, Neut % (Auto) 68.1, Lymph % (Auto) 16.1 L, [place] % (Auto) 8.8, Eos % (Auto) 5.0, Baso % (Auto) 0.6, Absolute Neuts (auto) 4.7, Absolute Lymphs (auto) 1.12, Nucleated RBC % 0 04/17/22 04:57: Sodium 138, Potassium 3.5, Chloride 106, Carbon Dioxide 26.0, Anion Gap 6, BUN 14, Creatinine 0.65 L, Estim Creat Clear Calc 58.81, Est GFR (MDRD) Af Amer 150, Est GFR (MDRD) Non-Af 124, BUN/Creatinine Ratio 21.4 H, Glucose 94, Calcium 8.7, Total Bilirubin 0.40, Direct Bilirubin 0.16, AST 21, ALT 20, Alkaline Phosphatase 66, Total Protein 6.9, Albumin 2.5 L, Globulin 4.4 H 04/17/22 04:57: PT 13.6, INR 1.1, APTT 30.0 D/C Instructions Discharge Diet: No restrictions Call your doctor if you observe: Shortness of breath, Swelling in the ankles and - (Abdominal pain. Recurrent blood in the urine.) Meaningful Use Info Meaningful Use Diagnoses (Choose all that apply): None applicable Discharge Plan Admission Admit Date/Time: 04/10/22 22:00 Primary Reason for Your Visit: Hematuria Attending Provider: Wilber Velazquez Primary Care Provider: Darrin Ramirez Consulting Providers: Cleve Mejia ; Eric Segura Discharge Orders/Prescriptions Prescriptions: New lisinopril 20 mg Tablet 20 mg PO DAILY Qty: 30 0RF furosemide 20 mg tablet 20 mg PO DAILY Qty: 30 0RF Continued metoprolol succinate 25 MG tablet 25 mg PO DAILY Label Comments: blood pressure/heart acidophilus-pectin, citrus 1 TABLET tablet 1 tab PO DAILY Label Comments: probiotic tamsulosin 0.4 mg capsule 1 tab PO BID prednisone 5 mg tablet 5 mg PO QHS Label Comments: TAKE 1 TABLET BY MOUTH ONCE DAILY omeprazole 10 mg capsule,delayed release(DR/EC) 20 mg PO 0800 amlodipine 10 mg tablet 10 mg PO DAILY Label Comments: TAKE 1 TABLET BY MOUTH ONCE DAILY oxybutynin chloride 5 mg tablet extended release 24hr 5 mg PO DAILY finasteride 5 mg tablet 5 mg PO DAILY ketorolac 10 mg tablet 10 mg PO Q6H PRN (Reason: pain) 5 Days Qty: 20 0RF abiraterone 250 mg tablet 1,000 mg PO QHS zinc 10 mg Tablet 10 mg PO DAILY Centrum Silver 0.4 mg-300 mcg- 250 mcg Tablet 1 tab PO DAILY cholecalciferol (vitamin D3) [Vitamin D3] 125 mcg (5,000 unit) Tablet 125 mcg PO DAILY ascorbic acid (vitamin C) 1 tab PO/SL DAILY cephalexin 500 mg capsule 500 mg PO Q8H Held aspirin 81 mg Capsule 81 mg PO DAILY Hold Instructions: Resume on 04/21/22. Discontinued lisinopril-hydrochlorothiazide 20-25 mg tablet 1 tab PO DAILY oxycodone 5 mg Tablet 5 mg PO Q6H PRN (Reason: Pain) Referrals / Follow Up: [facility] [Provider Group] - Within 1 Month (Aortic Stenosis) [facility] [Provider Group] - Within 1 Month (Sleep apnea evaluation. ) Darrin Ramirez MD [Primary Care Provider] - Within 2 Weeks Cleve Mejia MD [Med Staff - Active Staff] - Within 2 Weeks Disposition Disposition (needs filled in before D/C Order can be placed): Home, Self Care Charges/Coding Visit Charges Inpatient E&M: 42759 Disch Hosp
[2022-04-17] MEDS: Potassium Chloride Oral Tablet 20 MEQ 40 MEQ PO (09:35)
[2022-04-17] MEDS: Pantoprazole Sodium 20 MG Tablet PO (09:35)
[2022-04-17] MEDS: amLODIPine 10 MG Tablet PO (09:35)
[2022-04-17] MEDS: Tamsulosin HCl 0.4 MG Capsule PO (09:35)
[2022-04-17] MEDS: Metoprolol(XL)Succ 25 MG Tablet PO (09:35)
[2022-04-17] MEDS: Finasteride 5 MG Tablet PO (09:37)
[2022-04-17] MEDS: Tolterodine Tartrate 2 MG CAP.SA PO (09:38)
[2022-04-17] MEDS: Lisinopril 20 MG Tablet PO (09:38)
== END 2022-04-17 10:20 | disposition home or self-care (01) | DRG 717 ==
LOC: ED 22:07 → MS3 22:14
PROVIDERS: Anesthesiology; Urology; Admitting Provider Hospitalist; Emergency Provider Emergency Medicine; PCP Family Medicine
PROC: 0W3R8ZZ Control Bleeding in Genitourinary Tract, Via Natural or Artificial Opening Endoscopic (ICD-10-PCS; CPT 52214; principal; 2022-04-11 13:50)
DX: N42.1 Congestion and hemorrhage of prostate (principal); N13.2 Hydronephrosis with renal and ureteral calculous obstruction; D62 Acute posthemorrhagic anemia; N18.31 Chronic kidney disease, stage 3a; E78.5 Hyperlipidemia, unspecified; E87.6 Hypokalemia; I12.9 Hypertensive chronic kidney disease with stage 1 through stage 4 chronic kidney disease, or unspecified chronic kidney disease; I35.0 Nonrheumatic aortic (valve) stenosis; K21.9 Gastro-esophageal reflux disease without esophagitis; E83.42 Hypomagnesemia; M25.572 Pain in left ankle and joints of left foot; Z85.46 Personal history of malignant neoplasm of prostate; R31.0 Gross hematuria; R33.9 Retention of urine, unspecified; Z79.82 Long term (current) use of aspirin; G89.29 Other chronic pain; Z79.52 Long term (current) use of systemic steroids; Z79.899 Other long term (current) drug therapy
CPT/HCPCS: 36415; 51702; 74177; 80048; 80053; 80076; 83735; 83880; 84484; 84550; 85025; 85610; 85730; 86850; 86900; 86901; 86920; 86922; 93005; 93306; 94762; 96374; 96375; 97162; 97166; 99283; 99285; J7030; J7040; J7120; P9016; Q9967; A4216; C1769; C2617; J1940; J2405

== ENCOUNTER → 2022-06-07 | Outpatient (CLI) | payer MEDICARE, SELFPAY ==
--- NOTE | 2022-06-07 12:57 | VDLE_ITS ---
Reason For Study: LEG SWELLING RIGHT LEFT GSV is normal. GSV is normal. CFV is compressible, spontaneous, phasic, CFV is compressible, spontaneous, phasic, competent and demonstrates normal competent, and demonstrates normal augmentation. augmentation. FV is compressible, spontaneous, phasic, FV is compressible, spontaneous, phasic, competent and demonstrates normal competent and demonstrates normal augmentation. augmentation. POP V is compressible, spontaneous, phasic, POP V is compressible, spontaneous, phasic, competent and demonstrates normal competent and demonstrates normal augmentation. augmentation. T/P Trunk is compressible. T/P Trunk is compressible. PTV is compressible. PTV is compressible. RT PerV is compressible. LT PerV is compressible. Procedure This is a venous duplex using B-mode, color flow and spectral Doppler. Exam performed in department. The exam was diagnostic. A preliminary report was called and/or faxed to Dr. Mejia. VL/Venous Duplex US - Otto Extrem Interpretation Summary No evidence for acute deep venous thrombosis bilateral lower extremities with p atent and compressible bilateral great saphenous veins. Ordering Physician: Cleve Mejia Referring Physician: Cleve Mejia Performed By: Juan Franklin, RVT
== END | disposition home or self-care (01) ==
LOC: CVS 12:53
PROVIDERS: PCP Family Medicine; Referring Provider Urology; Visit Provider Urology
DX: R60.0 Localized edema (principal)
CPT/HCPCS: 93970

== ENCOUNTER 2022-07-10 10:12 | Emergency (ER) | payer MEDICARE, SELFPAY ==
[2022-07-10 10:12] VITALS: BP 176/104; PULSE 83; RESP 16; TEMP 36.6; O2SAT 95; BMI 37.1
--- NOTE | 2022-07-10 10:39 | EX.ED.GUMALE ---
HPI History of Present Illness Chief Complaint: Complaint Detail of Chief Complaint: Difficulty urinating last 4 days. Informant: patient, spouse/S.O. and family Pain Onset: Days Context: Gradual Onset Timing: Intermittent Current Severity: Mild Maximum Severity: Mild Narrative Narrative: 81-year-old male history of prior prostate cancer. Prior prostate cauterization due to bleeding. States since has had difficulty urinating. At times he can urinate well and then it stops he can feel like he is emptying his bladder. He denies any dysuria or fever. No gross hematuria or clots. He is on no blood thinners. He has chronic lower extremity edema is actually better than normal. Prior similar symptoms: Yes Recent Illness/Hospitalization: No PFSH PFSH Medical History Abnormal electrocardiogram Ambulates with cane Anemia Aortic stenosis Arthritis Back pain BPH (benign prostatic hyperplasia) Cardiology follow-up encounter Chronic back pain Depression Diverticulosis Easy bruising Essential hypertension Gastric reflux GERD (gastroesophageal reflux disease) History of echocardiogram History of edema History of steroid therapy Hyperlipidemia Hypertension Inguinal hernia Leg cramps Loss of hearing Lung nodule Multiple premature ventricular complexes Non-smoker Nonrheumatic aortic (valve) stenosis Obesity Osteoarthritis Prostate cancer metastatic to bone Prostate disease Restless legs Wears glasses Wears hearing aid Home Medications acidophilus 25 million cell-pectin, citrus 100 mg tablet 1 tab PO DAILY probiotic 03/12/14 [History Last Taken 04/10/22] metoprolol succinate 25 mg tablet,extended release 24 hr 25 mg PO DAILY HTN 03/12/14 [History Last Taken 04/10/22] tamsulosin 0.4 mg capsule 1 tab PO BID BPH 12/12/19 [History Last Taken 04/10/22] amlodipine 10 mg tablet 10 mg PO DAILY HTN 03/21/22 [History Last Taken 04/10/22] finasteride 5 mg tablet 5 mg PO DAILY BPH 03/21/22 [History Last Taken 04/10/22] omeprazole 10 mg capsule,delayed release 20 mg PO 0800 GERD 03/21/22 [History Last Taken 04/10/22] prednisone 5 mg tablet 5 mg PO QHS with chemo pill 03/21/22 [History Last Taken 04/09/22] abiraterone 250 mg tablet 1,000 mg PO QHS chemo pill 04/10/22 [History Last Taken 04/09/22] aspirin 81 mg capsule 81 mg PO DAILY heart health 04/10/22 [History Last Taken 04/10/22] cholecalciferol (vitamin D3) 125 mcg (5,000 unit) tablet (Vitamin D3) 125 mcg PO DAILY supplement 04/10/22 [History Last Taken 04/10/22] oiwiccqd-pkb-nierj acid 0.4 mg-lycopene 300 mcg-lutein 250 mcg tablet (Centrum Silver) 1 tab PO DAILY supplement 04/10/22 [History Last Taken 04/10/22] zinc 10 mg tablet 10 mg PO DAILY supplement 04/10/22 [History Last Taken 04/10/22] cefadroxil 500 mg capsule 500 mg PO BID 06/21/22 [History Last Taken Unknown] enzalutamide 80 mg tablet (Xtandi) 80 mg PO DAILY 06/21/22 [History Last Taken Unknown] furosemide 20 mg tablet 40 mg PO DAILY 06/21/22 [History Last Taken Unknown] potassium chloride 20 mEq tablet,extended release 20 meq PO BID 06/21/22 [History Last Taken Unknown] Allergy/AdvReac Type Severity Reaction Status Date / Time No Known Allergies Allergy Verified 06/21/22 13:43 Family History Father Heart disease Surgical History Amputated toe History of carpal tunnel release History of cystoscopy History of inguinal hernia repair History of left knee replacement History of total knee arthroplasty Social History household members: spouse Smoking Status: Never smoker substance use type: does not use ROS ROS ED ROS Narrative Difficulty urinating. Review of Systems ROS Unobtainable: Denies due to encephalopathy Constitutional Constitutional ED: Denies chills or fever(s) Eyes Eyes: Denies blurry vision ENT ENT ED: Denies ear pain Cardiovascular Cardiovascular: Denies chest pain Respiratory/Chest Respiratory/Chest: Denies cough or dyspnea Gastrointestinal Gastrointestinal: Denies abdominal pain Genitourinary Genitourinary ED: Denies dysuria, hematuria or urinary frequency Musculoskeletal Musculoskeletal: Denies arthralgias or back pain Integumentary Denies abscess or rash Neurologic Neurologic: Denies headache(s) Psychiatric Psychiatric: Denies anxiety or depression Endocrine Endocrinology: Denies polydipsia Hematologic/Lymphatic Hematologic/Lymphatic: Denies easy bleeding Allergic/Immunologic Allergic/Immunologic ED: Denies mouth swelling or tongue swelling EXAM Physical Exam Narrative Exam Narrative: 81-year-old male no acute distress. Vital signs stable afebrile. He does not look septic nor toxic or in any distress. He denies any pain at this time. and daughter at bedside. H EENT exam unremarkable. Moist with membranes. Lungs clear to auscultation. Heart regular rhythm 5/6 systolic ejection murmur. History of aortic stenosis. Abdomen soft, nontender, nondistended normal bowel sounds no peritoneal signs. Really no significant suprapubic tenderness or distention. External exam unremarkable. Circumcised. No gross blood. Moving all 4 extremities. 1+ pitting edema bilaterally which is chronic. Neurologically is awake and alert. No focal motor deficits. Const Vital Signs: 07/10/22 10:12 07/10/22 12:39 Temperature 97.9 F Temperature Source Oral Pulse Rate 83 Respiratory Rate 16 16 Blood Pressure 176/104 H Blood Pressure Mean 128 Pulse Ox 95 Oxygen Delivery Method Room Air Positive well nourished and well developed; Negative for cachectic, contractures or unkempt General Appearance ED: well developed and NAD; Negative for unkempt, cachectic, contractures or pallor Nutritional Appearance: Negative for cachectic HEENT Reports moist mucous membranes; Denies dry mucous membranes normocephalic and atraumatic; Negative for trauma or tenderness Mouth ED: No dry mucous membranes Mouth: No dry mucous membranes Eyes PERRL and EOMs intact bilaterally General Eye ED: Negative for pale conjunctiva or scleral icterus Neck no lymphadenopathy, supple and no JVD General: Negative for tenderness Resp normal respiratory effort and clear to auscultation bilaterally Effort and Inspection: Negative for retractions Auscultation: Negative for rales, rhonchi or wheezes Cardio regular rate, regular rhythm, S1 normal heart sound, S2 normal heart sound and no murmurs Rate: Negative for bradycardia Rhythm: Negative for abnormal rhythm Heart Sounds: Negative for other GI non-tender, non-distended and no masses Inspection: Negative for abdominal distention Auscultation: normoactive bowel sounds Palpation: soft; Negative for tender or guarding no CVA tenderness Bladder / Kidney Exam: No CVA tenderness Groin / Perineum Exam: Negative for edema Back/Spine no CVA tenderness General Back: Negative for CVA tenderness Cervical Spine: Negative for cervical spine tenderness Thoracic Spine / Upper Back: Negative for thoracic spinal tenderness Lumbar Spine / Lower Back: Negative for lumbar spinal tenderness Extremity Negative for normal to inspection Extremity Narrative: Bilateral pitting edema 1+. Chronic. General Extremety ED: Yes edema General Extremity: edema Neuro oriented x3, moves all extremities and no focal motor deficits Sensorium / Orientation: alert, oriented to person, oriented to place and oriented to time; Negative for orientation impaired, confused, lethargic or stuporous Motor Exam: strength 5/5 throughout Psych mental status grossly normal Appearance: Negative for unkempt Attitude: No agitated Mood & Affect: Negative for depressed or anxious Thought Process: normal thought process Thought Content: normal thought content Attention / Concentration: Negative for other Skin General Skin Exam: Negative for jaundice or pallor Lesions: no lesions Rashes: no rashes Trauma: Negative for abrasion MDM MDM MDM Narrative Medical decision making narrative: 81-year-old male suspect urinary retention. History of prostate cancer in the past. He is having no gross hematuria. We will get a bladder scan. Suspect we will need to place a Lockwood catheter which will attempt a 16 [place]. He may need a coud? through the prior prostate cancer. Urinalysis will be obtained. I will check his kidney function since he has chronic lower extremity pitting edema. We will do repeat exams patient is doing well. He was able to urinate here I suspect secondary to overflow incontinence. He still has over 500 cc in his bladder but he is having no pain. He said he has been like this for more than a week. I did speak to the urologist on-call at [facility], Dr. Koroma, he states they would be happy to see the patient but with him having limited symptoms he feels he could be seen as outpatient follow-up and they can determine then if he needs a Lockwood catheter or some type of procedure. I discussed this all with the patient and family they are going to go home try to follow-up with local urology if they are not in town this week they will follow-up with urologist in [place]. If he develops complete urinary retention is unable to urinate at all then go directly to an emergency department in [place]. Lab Data Attestation: I reviewed the patient's lab results. Lab results narrative: Chemistries show potassium of 3.0. Gap of 8 normal BUN of 18 creatinine 0.7. Glucose 104. Urinalysis is negative. Nurses were unable to place a Lockwood catheter. Patient did urinate a significant mount over the bed. The urine is clear. No signs of infection. It was sent for urinalysis. However on bladder scan after he was able to urinate is still greater than 500. Labs: Laboratory Results - last 24 hr 07/10/22 07/10/22 11:05 12:25 Sodium 138 Potassium 3.0 L Chloride 103 Carbon Dioxide 27.0 Anion Gap 8 BUN 18 Creatinine 0.70 Estim Creat Clear Calc 58.81 Est GFR (MDRD) Af Amer 138 Est GFR (MDRD) Non-Af 114 BUN/Creatinine Ratio 25.6 H Glucose 104 Calcium 9.0 Urine Color Yellow Urine Clarity Clear Urine pH 7.0 Ur Specific [place] 1.010 Urine Protein Negative Urine Glucose (UA) Normal Urine Ketones Negative Urine Occult Blood 10 H Urine Nitrite Negative Urine Bilirubin Negative Urine Urobilinogen Normal Ur Leukocyte Esterase Negative Urine RBC 0 SEEN Urine WBC 0-5 SEEN Ur Squamous Epith Cells 0 SEEN Amorphous Sediment 1+ Urine Bacteria 0 SEEN Urine Mucus 0 SEEN Management Discussion w/another healthcare provider: [employer] Manager Discharge Plan Triage Chief Complaint: Complaint ED Provider: Luis Perez Dx/Rx/DC Orders Clinical Impression: Acute urinary retention, History of prostate cancer, History of BPH Instructions: ED Urinary Retention, Male Prescriptions: No Action furosemide 20 mg tablet 40 mg PO DAILY cefadroxil 500 mg capsule 500 mg PO BID potassium chloride 20 mEq tablet extended release 20 meq PO BID Xtandi 80 mg tablet 80 mg PO DAILY metoprolol succinate 25 MG tablet 25 mg PO DAILY Label Comments: blood pressure/heart acidophilus-pectin, citrus 1 TABLET tablet 1 tab PO DAILY Label Comments: probiotic tamsulosin 0.4 mg capsule 1 tab PO BID prednisone 5 mg tablet 5 mg PO QHS Label Comments: TAKE 1 TABLET BY MOUTH ONCE DAILY omeprazole 10 mg capsule,delayed release(DR/EC) 20 mg PO 0800 amlodipine 10 mg tablet 10 mg PO DAILY Label Comments: TAKE 1 TABLET BY MOUTH ONCE DAILY finasteride 5 mg tablet 5 mg PO DAILY abiraterone 250 mg tablet 1,000 mg PO QHS aspirin 81 mg Capsule 81 mg PO DAILY Hold Instructions: Resume on 04/21/22. zinc 10 mg Tablet 10 mg PO DAILY Centrum Silver 0.4 mg-300 mcg- 250 mcg Tablet 1 tab PO DAILY cholecalciferol (vitamin D3) [Vitamin D3] 125 mcg (5,000 unit) Tablet 125 mcg PO DAILY Primary Care Provider: Darrin Ramirez Referrals: Darrin Ramirez MD [Primary Care Provider] - Cleve Mejia MD [Med Staff - Active Staff] - 1 Day Activity Restrictions/Additional Instructions: Call and follow-up with Dr. Kevin Mejia tomorrow. If he is out of town this week follow-up with a urologist in [place]. I spoke to Dr. Aidan Koroma . If you get to the point where you are unable to urinate at all you need to have a Lockwood catheter placed to go directly to [facility] ER. Disposition Disposition: Home, Self Care
--- NOTE | 2022-07-10 11:09 | ED.RN ---
UNABLE TO OBTAIN CATHETER AT THIS TIME, UNABLE TO GET CATHETER PAST URETHRA. DR ENGLAND MADE AWARE, UROLOGY CALLED
[2022-07-10 11:32] LABS: Anion Gap 8 (5-15); BUN 18 mg/dL (7-18); BUN/Creat Ratio 25.6 RATIO (10-20); Chloride 103 mmol/L (98-107); EST Glomerular Filtration Rate 114 mL/min (>60); Est Glom Filt Rate - Afr Amer 138 mL/min (>60); Estimated Creatinine Clearance 58.81 ml/min; Glucose 104 mg/dL (74-106); Sodium Level 138 mmol/L (136-145)
[2022-07-10 12:32] LABS: Bacteria 0 SEEN /hpf (None Seen); Mucous, Urine 0 SEEN /hpf (<or=2+); Red Blood Cells-Urine 0 SEEN /hpf (0-5); Squamous Epithelial Cells - UA 0 SEEN /hpf (0-5)
[2022-07-10 12:39] VITALS: RESP 16
--- NOTE | 2022-07-10 12:46 | ED.RN ---
PT DEPENDS COMPLETELY SOAKED WELL BED. PT AND BED CHANGED, EXTERNAL CATHETER APPLIED. WILL RE BLADDER SCAN
[2022-07-10 12:58] LABS: Color, Urine Yellow (Yellow); Glucose, Dipstick Normal (Normal); Ketone-Dipstick Negative (Negative); Leukocyte Esterase-Dipstick Negative /ul (Negative); Nitrite-Dipstick Negative (Negative); Occult Blood-Urine 10 /ul (Negative); Protein-Dipstick Negative (Negative); Urine Bilirubin Dipstick Negative (Negative); Urine Clarity Clear (Clear); Urine Urobilinogen Normal (Normal)
[2022-07-10 13:07] LABS: Amorphous Sediment 1+; White Blood Cells 0-5 SEEN /hpf (0-5)
== END 2022-07-10 13:55 | disposition home or self-care (01) ==
PROVIDERS: Emergency Provider Emergency Medicine; PCP Family Medicine; Visit Provider Emergency Medicine
DX: N40.1 Benign prostatic hyperplasia with lower urinary tract symptoms (principal); I10 Essential (primary) hypertension; R33.8 Other retention of urine; R60.0 Localized edema; E78.5 Hyperlipidemia, unspecified; K21.9 Gastro-esophageal reflux disease without esophagitis; Z85.46 Personal history of malignant neoplasm of prostate; Z79.899 Other long term (current) drug therapy; Z79.82 Long term (current) use of aspirin
CPT/HCPCS: 80048; 81001; 99284; J7030; A4216

== ENCOUNTER → 2022-08-01 | Outpatient (CLI) | payer MEDICARE, SELFPAY ==
--- NOTE | 2022-08-01 14:30 | RAD_ITS ---
INDICATION: Aortic Valve Stenosis-Heart Cath EXAMINATION/TECHNIQUE: X-RAY - XR Chest 2 Views COMPARISON: None. FINDINGS: LINES/DEVICES: None. LUNGS: No consolidation, edema or effusion. No pneumothorax. MEDIASTINUM AND CARDIOVASCULAR STRUCTURES: Cardiac silhouette is slightly enlarged. Central airways and mediastinal contour are unremarkable. BONES AND SOFT TISSUES: Degenerative vertebral changes.
[2022-08-01 15:11] LABS: Absolute Lymphocyte Count 1.34 X10^3/uL (0.83-4.51); Absolute Neutrophil Count 4.7 X10^3/uL (2.0-7.7); Basophil# 0.05 X10^3/uL; Basophil% 0.7 % (0-1); Eosinophil# 0.48 X10^3/uL; Eosinophils% 6.4 % (0-5); Hematocrit 37.6 % (40-54); Hemoglobin 11.8 g/dL (13.0-16.5); Lymphocyte # 1.34 X10^3/ul (0.83-4.51); Lymphocyte % 17.8 % (19-41); Mean Corp Hgb Conc 31.4 g/dL (32-36); Mean Corpuscular Hgb 27.2 pg (27.0-32.0); Mean Corpuscular Volume 86.6 fL (80-94); Monocyte# 0.96 X10^3/uL; Monocyte% 12.7 % (0-10); NRBC Flagged by Analyzer 0 % (0-5); Neutrophil # 4.67 X10^3/uL (2.7-7.7); Platelet Count 257 K/mm3 (150-450); RBC Distribution Width CV 13.9 % (11.6-14.6); RBC Distribution Width SD 44.1 fl (35.1-43.9); Red Blood Count 4.34 M/mm3 (4.6-6.2); White Blood Count 7.5 K/mm3 (4.4-11.0)
[2022-08-01 15:52] LABS: BNP,B-Type NATRIURETIC PEPTIDE 250.8 pg/mL (0-100)
[2022-08-01 15:56] LABS: Anion Gap 5 (5-15); BUN 18 mg/dL (7-18); BUN/Creat Ratio 22.1 RATIO (10-20); Calcium,Total 9.2 mg/dL (8.5-10.1); Chloride 107 mmol/L (98-107); Creatinine, Serum 0.82 mg/dL (0.70-1.30); EST Glomerular Filtration Rate 96 mL/min (>60); Est Glom Filt Rate - Afr Amer 116 mL/min (>60); Glucose 99 mg/dL (74-106); Potassium 3.7 mmol/L (3.5-5.1); Sodium Level 139 mmol/L (136-145)
== END | disposition home or self-care (01) ==
PROVIDERS: PCP Family Medicine; Visit Provider Nurse Practitioner Gerontology
DX: I35.0 Nonrheumatic aortic (valve) stenosis (principal); R06.02 Shortness of breath
CPT/HCPCS: 36415; 71046; 80048; 83880; 85025

== ENCOUNTER 2022-08-31 10:31 | Day surgery (SDC) | payer MEDICARE, SELFPAY ==
[2022-08-25 10:37] LABS: Anion Gap 6 (5-15); BUN 16 mg/dL (7-18); BUN/Creat Ratio 17.2 RATIO (10-20); Calcium,Total 9.4 mg/dL (8.5-10.1); Chloride 104 mmol/L (98-107); Creatinine, Serum 0.93 mg/dL (0.70-1.30); EST Glomerular Filtration Rate 83 mL/min (>60); Est Glom Filt Rate - Afr Amer 100 mL/min (>60); Glucose 124 mg/dL (74-106); Potassium 3.7 mmol/L (3.5-5.1); Sodium Level 135 mmol/L (136-145)
--- NOTE | 2022-08-31 12:43 | CL.D_ITS ---
Patient Name: KEENA FRIED Study Date: 08/31/2022 Performing: Jair Coto MD Ht: 70 inches 177.8 cm : 1940 Wt: 256.99 lbs 116.57 kg Age: 81 Gender: male BSA: 2.32 PROCEDURE(S) PERFORMED [id number])LHC/COR/LV CLINICAL PROFILE AND INDICATIONS Indications: Valvular Disease Heart Failure: None Stress/Imaging Stress/Image Study Performed: No CAD Presentations: No Sxs, no angina. CONCLUSIONS Non obstructive coronary arteries Aortic Valve Calcification- Severe Aortic Valve Stenosis- Severe RECOMMENDATIONS No recommendations -> Normal findings TAVR evaluation DESCRIPTION OF PROCEDURE The patient arrived to the procedure lab. The risks and benefits of the procedure as well as a full description of our services here and current unavailability of surgical backup were fully explained to the patient and/or their significant other prior to the catheterization. The Timeout was completed, verifying the correct patient and procedure. The patient's procedural site was prepped and draped in the usual fashion. Local anesthetic was given subcutaneously to right radial region with Lidocaine 2%. Using a modified Seldinger technique, arterial access was obtained via the right radial artery, a 6Fr sheath was inserted. Right Coronary Artery selective angiography was then performed in multiple views using a 5 Fr. 4.0 Powell catheter. Left Coronary Artery selective angiography was performed in multiple views using a 6 Fr 125 cm.. Left Ventriculography was performed in CLAUDIO projection using a 6 Fr. Pigtail catheter. LV to AO pullback pressures were then recorded.The arterial sheath was pulled and a TR Band was applied for hemostasis CORONARY ANGIOGRAPHY DOMINANCE: Right Dominant LEFT HEART ASSESSMENT Left Ventricular Ejection Fraction: by LV Gram 60 % Normal LV wall motion Normal Left Ventricular systolic function Aortic Valve Mean Gradient: [id number] LEFT MAIN: Angiographically normal LEFT ANTERIOR DESCENDING ARTERY: Moderate luminal irregularities up to 50% CIRCUMFLEX ARTERY: Mild luminal irregularities RIGHT CORONARY ARTERY: Mild luminal irregularities VALVE FINDINGS: Aortic Valve Calcification - severe AORTIC ROOT: Dilated COMPLICATIONS No Complications PROCEDURE MEDICATIONS Versed 1 mg IV Fentanyl 50 mcg IV Oxygen: 2 L/min via nasal cannula Heparin given IA 08/31/2022 12:10:07 Verapamil 2.5mg, 2000 units of Heparin given IA 08/31/2022 12:10:07 SUMMARY OF HEMODYNAMIC DATA Time AIR REST ECG 10:56:18 AO 147/89 (114) SA 12:10:54 LV 188/9, 25 12:29:41 LV 195/7, 15 12:29:49 LV 211/10, 20 12:30:36 LV 221/11, 24 12:30:47 LV 211/10, 25 12:31:17 LV 219/10, 25 12:31:26 LVp 214/8, 22 12:31:32 AOp 179/97 (131) 12:31:39 AIR REST 12:37:54 Valve Area (c P-P/ms Time AIR REST Aortic 0.00 43.2 mn/256 ms 35.0 pk/256 ms 12:31:32 Signed By Jair Coto MD On 08/31/2022 12:42:22 Jair Coto MD
== END 2022-08-31 14:35 | disposition home or self-care (01) ==
PROVIDERS: Nurse Practitioner Gerontology; PCP Family Medicine; Referring Provider Internal Medicine Cardiovascular Disease; Visit Provider Internal Medicine Cardiovascular Disease
DX: I35.0 Nonrheumatic aortic (valve) stenosis (principal); I70.0 Atherosclerosis of aorta; I10 Essential (primary) hypertension; E78.5 Hyperlipidemia, unspecified; R93.1 Abnormal findings on diagnostic imaging of heart and coronary circulation; I49.49 Other premature depolarization; R06.02 Shortness of breath; R60.0 Localized edema; Z85.46 Personal history of malignant neoplasm of prostate
CPT/HCPCS: 36415; 80048; 93458; 99152; 99153; J7040; Q9967; C1769; C1894

== ENCOUNTER 2022-10-06 10:51 | Emergency (ER) | payer MEDICARE, SELFPAY ==
[2022-10-06 10:53] VITALS: BP 154/93; PULSE 115; RESP 22; TEMP 37.1; O2SAT 95; BMI 35.8
--- NOTE | 2022-10-06 11:12 | CT_ITS ---
EXAM: CT ABDOMEN AND PELVIS WITHOUT INTRAVENOUS CONTRAST CLINICAL INDICATION: L flank pain, hx stones TECHNIQUE: Helically acquired images were obtained of the abdomen and pelvis without intravenous contrast. This CT exam was performed using one or more of the following dose reduction techniques: automated exposure control, adjustment of the mA and/or kV according to patient size, and/or use of iterative reconstruction technique. COMPARISON: CT Abdomen Pelvis dated 04/11/2022 FINDINGS: LOWER THORAX: Normal. Lung bases are clear. No cardiomegaly. No pericardial effusion. ABDOMEN: LIVER: Normal. Homogeneous. PANCREAS: Normal. No focal cystic mass. SPLEEN: Multiple splenic granulomata again seen. ADRENALS: Normal. No nodules. KIDNEYS AND URETERS: Left hydronephrosis and prominent left perinephric edema noted without evidence of an obstructing ureteral stone. The 3 mm stone within the urinary bladder likely recently passed via the left ureter. Small stones are present within both kidneys. No obstructive changes of the right renal collecting system. STOMACH AND BOWEL: Diverticulosis of the colon noted without evidence of acute diverticulitis. PELVIS: APPENDIX: No evidence of acute appendicitis. BLADDER: Several small stones are present within thick-walled urinary bladder. REPRODUCTIVE: Unremarkable as visualized. No mass. ABDOMEN and PELVIS: INTRAPERITONEAL SPACE: Normal. No ascites or other fluid collection. No free air. BONES/JOINTS: No suspicious lytic or blastic abnormality. SOFT TISSUES: Small fat-containing right inguinal hernia. VASCULATURE: Normal. Abdominal aorta is non-dilated. LYMPH NODES: Normal. No enlarged lymph nodes. OTHER FINDINGS: Transcatheter aortic valve replacement (TAVR) noted. CT/Abdomen/Pelvis without Cont IMPRESSION: 1. Obstructive changes of the left renal collecting system secondary to a recently passed stone. 2. Small urinary bladder stones. 3. Bilateral nephrolithiasis. 4. Diverticulosis coli. Electronically Signed: Rusty Moser MD at 12:33 EDT ,
--- NOTE | 2022-10-06 11:16 | EX.ED.DYSGE1 ---
HPI <GABRIELA Stanton - Last Filed: 10/06/22 16:19> History of Present Illness Chief Complaint: Complaint Narrative Narrative: Patient presenting today with non radiating left-sided aching flank pain that he has had since last night. He reports a history of kidney stones and thinks that is what he has now. He denies any urinary symptoms such as hematuria, dysuria, or increased urinary frequency. He is nauseous and has had a few episodes of vomiting. He took Tylenol prior to arrival and reports that his pain is under control at the moment. PMH includes prostate cancer, hypertension, hyperlipidemia, and recent aortic valve replacement. He denies any fever, chills, chest pain, SOB, hematemesis, diarrhea, and abdominal pain. PFSH <GABRIELA Stanton - Last Filed: 10/06/22 16:19> PFSH Medical History Abnormal electrocardiogram Ambulates with cane Anemia Aortic stenosis Arthritis Back pain BPH (benign prostatic hyperplasia) Cardiology follow-up encounter Chronic back pain Depression Diverticulosis Easy bruising Essential hypertension Gastric reflux GERD (gastroesophageal reflux disease) History of echocardiogram History of edema History of steroid therapy Hyperlipidemia Hypertension Inguinal hernia Leg cramps Loss of hearing Lung nodule Multiple premature ventricular complexes Non-smoker Nonrheumatic aortic (valve) stenosis Obesity Osteoarthritis Prostate cancer metastatic to bone Prostate disease Restless legs Wears glasses Wears hearing aid Home Medications acidophilus 25 million cell-pectin, citrus 100 mg tablet 1 tab PO DAILY probiotic 03/12/14 [History Last Taken 04/10/22] tamsulosin 0.4 mg capsule 1 tab PO BID BPH 12/12/19 [History Last Taken 04/10/22] finasteride 5 mg tablet 5 mg PO DAILY BPH 03/21/22 [History Last Taken 04/10/22] omeprazole 10 mg capsule,delayed release 20 mg PO 0800 GERD 03/21/22 [History Last Taken 04/10/22] prednisone 5 mg tablet 5 mg PO QHS with chemo pill 03/21/22 [History Last Taken 04/09/22] abiraterone 250 mg tablet 1,000 mg PO QHS chemo pill 04/10/22 [History Last Taken 04/09/22] cholecalciferol (vitamin D3) 125 mcg (5,000 unit) tablet (Vitamin D3) 125 mcg PO DAILY supplement 04/10/22 [History Last Taken 04/10/22] wolddlqf-kgj-lsflw acid 0.4 mg-lycopene 300 mcg-lutein 250 mcg tablet (Centrum Silver) 1 tab PO DAILY supplement 04/10/22 [History Last Taken 04/10/22] zinc 10 mg tablet 10 mg PO DAILY supplement 04/10/22 [History Last Taken 04/10/22] cefadroxil 500 mg capsule 500 mg PO BID 06/21/22 [History Last Taken Unknown] enzalutamide 80 mg tablet (Xtandi) 80 mg PO DAILY 06/21/22 [History Last Taken Unknown] furosemide 20 mg tablet 40 mg PO DAILY 06/21/22 [History Last Taken Unknown] potassium chloride 20 mEq tablet,extended release 20 meq PO BID 06/21/22 [History Last Taken Unknown] metoprolol succinate 25 mg tablet,extended release 24 hr 50 mg PO DAILY HTN 08/01/22 [History Last Taken Unknown] ciprofloxacin HCl 500 mg tablet 500 mg PO BID #14 TABLETS 10/06/22 [Rx Last Taken Unknown] Allergy/AdvReac Type Severity Reaction Status Date / Time No Known Allergies Allergy Verified 10/06/22 10:53 Family History Father Heart disease Surgical History Amputated toe History of carpal tunnel release History of cystoscopy History of inguinal hernia repair History of left knee replacement History of total knee arthroplasty Social History household members: spouse Smoking Status: Never smoker substance use type: does not use ROS <GABRIELA Stanton - Last Filed: 10/06/22 16:19> ROS ED Constitutional Constitutional ED: Denies chills or fever(s) Cardiovascular Cardiovascular: Denies chest pain or palpitations Respiratory/Chest Respiratory/Chest: Denies cough or dyspnea Gastrointestinal Gastrointestinal: Reports nausea and vomiting; Denies abdominal pain, constipation or diarrhea Genitourinary Genitourinary ED: Denies dysuria, hematuria or urinary urgency Musculoskeletal Musculoskeletal: Reports back pain; Denies myalgias Integumentary Denies abscess, Abrasions or rash Neurologic Neurologic: Denies weakness Psychiatric Psychiatric: Denies anxiety or depression EXAM <GABRIELA Stanton - Last Filed: 10/06/22 16:19> Physical Exam Const Vital Signs: 10/06/22 10:53 10/06/22 12:53 Temperature 98.8 F Temperature Source Temporal Pulse Rate 115 H 100 Respiratory Rate 22 H 19 H Blood Pressure 154/93 H 128/77 H Blood Pressure Mean 113 94 Pulse Ox 95 97 Oxygen Delivery Method Room Air Room Air Positive well nourished, well developed and no apparent distress General Appearance ED: well developed HEENT Reports normocephalic and head/scalp atraumatic Mouth ED: Yes moist mucous membranes normal Eyes PERRL and EOMs intact bilaterally Neck full ROM and supple Chest Wall inspection of chest normal Resp normal respiratory effort and clear to auscultation bilaterally Cardio regular rate and regular rhythm GI soft to palpation, non-tender, non-distended and no masses Back/Spine no CVA tenderness, normal ROM and normal to inspection Extremity normal to inspection and full ROM Neuro oriented x3, CN's II-XII intact bilaterally, moves all extremities, no focal motor deficits and no sensory deficits noted Sensorium / Orientation: awake and alert Psych mental status grossly normal and thought process normal Skin no rashes or lesions noted and no wounds <Dr. Elier Laureano, - Last Filed: 10/06/22 18:50> Physical Exam Const Vital Signs: 10/06/22 10:53 10/06/22 12:53 Temperature 98.8 F Temperature Source Temporal Pulse Rate 115 H 100 Respiratory Rate 22 H 19 H Blood Pressure 154/93 H 128/77 H Blood Pressure Mean 113 94 Pulse Ox 95 97 Oxygen Delivery Method Room Air Room Air MDM <GABRIELA Stanton - Last Filed: 10/06/22 16:19> [facility] Narrative Medical decision making narrative: Patient presenting due to concerns that he has a kidney stone due to left-sided flank pain that started last night. He is well-appearing and in no acute distress. He denies anything for pain at this time as he just took Tylenol prior to arrival and feels his pain is under control. He is slightly tachycardic at 115 bpm, I will give him IV fluids and Zofran. After IV fluids, he was no longer tachycardic. He is afebrile. CT scan does show evidence of a recently passed stone with a stone in the urinary bladder. Patient does have an elevated WBC count at 15.9, BUN of 21, UA shows elevated leukocytes and WBC without any bacteria. We will treat patient for pyelonephritis with Cipro with first dose here. Patient is to follow-up with urology will be discharged home in stable condition, he is comfortable with plan. Lab Data Attestation: I reviewed the patient's lab results. Labs: Laboratory Results - last 24 hr 10/06/22 10/06/22 10/06/22 12:00 12:00 12:48 WBC 15.9 H RBC 4.21 L Hgb 11.6 L Hct 34.6 L MCV 82.2 MCH 27.6 MCHC 33.5 RDW Std Deviation 46.1 H RDW Coeff of Marta 15.4 H Plt Count 250 MPV 8.4 Immature Gran % (Auto) 0.600 Neut % (Auto) 87.0 H Lymph % (Auto) 3.3 L [place] % (Auto) 8.5 Eos % (Auto) 0.3 Baso % (Auto) 0.3 Absolute Neuts (auto) 13.9 H Absolute Lymphs (auto) 0.53 L Nucleated RBC % 0 Differential Comment SCANNED Sodium 136 Potassium 3.8 Chloride 105 Carbon Dioxide 24.0 Anion Gap 7 BUN 21 H Creatinine 1.08 Estim Creat Clear Calc 54.45 Est GFR (MDRD) Af Amer 84 Est GFR (MDRD) Non-Af 69 BUN/Creatinine Ratio 19.4 Glucose 105 Calcium 9.1 Urine Color Yellow Urine Clarity Cloudy Urine pH 6.0 Ur Specific [place] 1.010 Urine Protein 100 H Urine Glucose (UA) Normal Urine Ketones Negative Urine Occult Blood 150 H Urine Nitrite Negative Urine Bilirubin Negative Urine Urobilinogen Normal Ur Leukocyte Esterase 500 H Urine RBC 0 SEEN Urine WBC >100 SEEN Ur Squamous Epith Cells 0 SEEN Urine Bacteria 0 SEEN Urine Mucus 0 SEEN Radiography Diagnostic Testing: Clinical Impression(s) from Imaging Studies Abdomen/Pelvis CT 10/06/22 11:12 IMPRESSION: 1. Obstructive changes of the left renal collecting system secondary to a recently passed stone. 2. Small urinary bladder stones. 3. Bilateral nephrolithiasis. 4. Diverticulosis coli. Electronically Signed: Rusty Moser MD at 12:33 EDT , Imaging also reviewed and interpreted by attending ED physician, in agreement with radiology. <Dr. Elier Laureano, DO - Last Filed: 10/06/22 18:50> [facility] MDM Narrative Medical decision making narrative: Patient presenting due to concerns that he has a kidney stone due to left-sided flank pain that started last night. He is well-appearing and in no acute distress. He denies anything for pain at this time as he just took Tylenol prior to arrival and feels his pain is under control. He is slightly tachycardic at 115 bpm, I will give him IV fluids and Zofran. After IV fluids, he was no longer tachycardic. He is afebrile. CT scan does show evidence of a recently passed stone with a stone in the urinary bladder. Patient does have an elevated WBC count at 15.9, BUN of 21, UA shows elevated leukocytes and WBC without any bacteria. We will treat patient for pyelonephritis with Cipro with first dose here. Patient is to follow-up with urology will be discharged home in stable condition, he is comfortable with plan. This patient was seen with a PA/PIPE ASSEMBLY WORKER Individually assessed they patient including history and physical. I have reviewed everything on the chart that is available and agree with the documentation provided by the PA/PIPE ASSEMBLY WORKER including discussion about the assessment, treatment plan, discussion, and return precautions. Patient with left flank pain found to have a bladder calculi of 3 mm. Patient feeling well controlled. He does show a leukocytosis of 15.9 with a left shift. Urinalysis concerning for infection. I believe this kidney stone will likely pass. Patient will be treated as pyelonephritis. Patient to follow-up with urology on an outpatient basis. Return precautions discussed. Lab Data Labs: Laboratory Results - last 24 hr 10/06/22 10/06/22 10/06/22 12:00 12:00 12:48 WBC 15.9 H RBC 4.21 L Hgb 11.6 L Hct 34.6 L MCV 82.2 MCH 27.6 MCHC 33.5 RDW Std Deviation 46.1 H RDW Coeff of [place] 15.4 H Plt Count 250 MPV 8.4 Immature Gran % (Auto) 0.600 Neut % (Auto) 87.0 H Lymph % (Auto) 3.3 L [place] % (Auto) 8.5 Eos % (Auto) 0.3 Baso % (Auto) 0.3 Absolute Neuts (auto) 13.9 H Absolute Lymphs (auto) 0.53 L Nucleated RBC % 0 Differential Comment SCANNED Sodium 136 Potassium 3.8 Chloride 105 Carbon Dioxide 24.0 Anion Gap 7 BUN 21 H Creatinine 1.08 Estim Creat Clear Calc 54.45 Est GFR (MDRD) Af Amer 84 Est GFR (MDRD) Non-Af 69 BUN/Creatinine Ratio 19.4 Glucose 105 Calcium 9.1 Urine Color Yellow Urine Clarity Cloudy Urine pH 6.0 Ur Specific [place] 1.010 Urine Protein 100 H Urine Glucose (UA) Normal Urine Ketones Negative Urine Occult Blood 150 H Urine Nitrite Negative Urine Bilirubin Negative Urine Urobilinogen Normal Ur Leukocyte Esterase 500 H Urine RBC 0 SEEN Urine WBC >100 SEEN Ur Squamous Epith Cells 0 SEEN Urine Bacteria 0 SEEN Urine Mucus 0 SEEN Radiography Diagnostic Testing: Clinical Impression(s) from Imaging Studies Abdomen/Pelvis CT 10/06/22 11:12 IMPRESSION: 1. Obstructive changes of the left renal collecting system secondary to a recently passed stone. 2. Small urinary bladder stones. 3. Bilateral nephrolithiasis. 4. Diverticulosis coli. Electronically Signed: Rusty Moser MD at 12:33 EDT , Discharge Plan Triage Chief Complaint: Complaint ED Midlevel Provider: Earlene Rosales ED Provider: Elier Laureano Dx/Rx/DC Orders Clinical Impression: Acute UTI, Kidney stone Instructions: ED Kidney Stone w/ Colic, ED Pyelonephritis, Male (Adult) Prescriptions: New ciprofloxacin HCl 500 mg tablet 500 mg PO BID Qty: 14 0RF No Action furosemide 20 mg tablet 40 mg PO DAILY cefadroxil 500 mg capsule 500 mg PO BID potassium chloride 20 mEq tablet extended release 20 meq PO BID Xtandi 80 mg tablet 80 mg PO DAILY metoprolol succinate 25 mg tablet extended release 24 hr 50 mg PO DAILY Label Comments: blood pressure/heart acidophilus-pectin, citrus 1 TABLET tablet 1 tab PO DAILY Label Comments: probiotic tamsulosin 0.4 mg capsule 1 tab PO BID prednisone 5 mg tablet 5 mg PO QHS Label Comments: TAKE 1 TABLET BY MOUTH ONCE DAILY omeprazole 10 mg capsule,delayed release(DR/EC) 20 mg PO 0800 finasteride 5 mg tablet 5 mg PO DAILY abiraterone 250 mg tablet 1,000 mg PO QHS zinc 10 mg Tablet 10 mg PO DAILY Centrum Silver 0.4 mg-300 mcg- 250 mcg Tablet 1 tab PO DAILY cholecalciferol (vitamin D3) [Vitamin D3] 125 mcg (5,000 unit) Tablet 125 mcg PO DAILY Primary Care Provider: Darrin Ramirez Referrals: Darrin Ramirez MD [Primary Care Provider] - Activity Restrictions/Additional Instructions: Please follow-up with urology in 5-7 days, take antibiotics as directed, return for any worsening of symptoms. Disposition Disposition: Home, Self Care Discharge Date/Time: 10/06/22 14:24
[2022-10-06 12:11] LABS: Absolute Lymphocyte Count 0.53 X10^3/uL (0.83-4.51); Absolute Neutrophil Count 13.9 X10^3/uL (2.0-7.7); Basophil# 0.04 X10^3/uL; Basophil% 0.3 % (0-1); Eosinophil# 0.04 X10^3/uL; Eosinophils% 0.3 % (0-5); Hematocrit 34.6 % (40-54); Hemoglobin 11.6 g/dL (13.0-16.5); Lymphocyte # 0.53 X10^3/ul (0.83-4.51); Lymphocyte % 3.3 % (19-41); Mean Corp Hgb Conc 33.5 g/dL (32-36); Mean Corpuscular Hgb 27.6 pg (27.0-32.0); Mean Corpuscular Volume 82.2 fL (80-94); Mean Platelet Vol. 8.4 fl (6.2-12.0); Monocyte# 1.36 X10^3/uL; Monocyte% 8.5 % (0-10); NRBC Flagged by Analyzer 0 % (0-5); Neutrophil # 13.85 X10^3/uL (2.7-7.7); POSITIVE DIFFERENTIAL YES; Platelet Count 250 K/mm3 (150-450); RBC Distribution Width CV 15.4 % (11.6-14.6); RBC Distribution Width SD 46.1 fl (35.1-43.9); Red Blood Count 4.21 M/mm3 (4.6-6.2); White Blood Count 15.9 K/mm3 (4.4-11.0)
[2022-10-06 12:15] LABS: Differential Indicated SCAN CRITERIA MET
[2022-10-06 12:23] LABS: Anion Gap 7 (5-15); BUN 21 mg/dL (7-18); BUN/Creat Ratio 19.4 RATIO (10-20); Calcium,Total 9.1 mg/dL (8.5-10.1); Chloride 105 mmol/L (98-107); Creatinine, Serum 1.08 mg/dL (0.70-1.30); EST Glomerular Filtration Rate 69 mL/min (>60); Est Glom Filt Rate - Afr Amer 84 mL/min (>60); Estimated Creatinine Clearance 54.45 ml/min; Glucose 105 mg/dL (74-106); Potassium 3.8 mmol/L (3.5-5.1); Sodium Level 136 mmol/L (136-145)
[2022-10-06] MEDS: 0.9% Normal Saline 1,000 ML 1000 ML IV (12:24)
[2022-10-06 12:53] VITALS: BP 128/77; PULSE 100; RESP 19; O2SAT 97
[2022-10-06 12:54] LABS: Bacteria 0 SEEN /hpf (None Seen); Mucous, Urine 0 SEEN /hpf (<or=2+); Red Blood Cells-Urine 0 SEEN /hpf (0-5); Squamous Epithelial Cells - UA 0 SEEN /hpf (0-5)
[2022-10-06 13:02] LABS: Color, Urine Yellow (Yellow); Glucose, Dipstick Normal (Normal); Ketone-Dipstick Negative (Negative); Leukocyte Esterase-Dipstick 500 /ul (Negative); Nitrite-Dipstick Negative (Negative); Occult Blood-Urine 150 /ul (Negative); Protein-Dipstick 100 mg/dl (Negative); Urine Bilirubin Dipstick Negative (Negative); Urine Clarity Cloudy (Clear); Urine Urobilinogen Normal (Normal)
[2022-10-06 13:26] LABS: Differential Comment SCANNED
[2022-10-06 13:29] LABS: White Blood Cells >100 SEEN /hpf (0-5)
[2022-10-06] MEDS: Ciprofloxacin 500 MG Tablet PO (14:06)
== END 2022-10-06 14:24 | disposition home or self-care (01) ==
PROVIDERS: Physician Assistant; Emergency Provider Student in an Organized Health Care Education/Training Program; PCP Family Medicine; Visit Provider Student in an Organized Health Care Education/Training Program
DX: N39.0 Urinary tract infection, site not specified (principal); N20.0 Calculus of kidney; E78.5 Hyperlipidemia, unspecified; I10 Essential (primary) hypertension; Z85.46 Personal history of malignant neoplasm of prostate; Z95.2 Presence of prosthetic heart valve; Z79.899 Other long term (current) drug therapy; K21.9 Gastro-esophageal reflux disease without esophagitis; Z96.652 Presence of left artificial knee joint
CPT/HCPCS: 74176; 80048; 81001; 85025; 87077; 87086; 87088; 87186; 96361; 96374; 99285; J7030; J2405

== ENCOUNTER → 2022-10-26 | Outpatient (CLI) | payer MEDICARE, SELFPAY ==
--- NOTE | 2022-10-26 10:02 | ECHOD_ITS ---
Reason For Study: PROSTHETIC HEART VALVE Procedure This was a 2D Doppler, Color Flow transthoracic echocardiogram. Exam performed in department. Left Ventricle Normal LV size. Severe concentric left ventricular hypertrophy. Left ventricular systolic function is normal. The estimated ejection fraction is 60 %. Stage 1 diastolic dysfunction. No regional wall motion abnormalities noted. Right Ventricle Normal RV size. Normal systolic function. Atria Normal left atrium. Normal right atrium. Mitral Valve Normal mitral valve. Tricuspid Valve Normal tricuspid valve. Mild (1+) tricuspid valve insufficiency. Pulmonary artery systolic pressure is 30 mmHg. Aortic Valve Peak aortic valve gradient 24 mmHg. Mean aortic valve gradient 13 mmHg. Normal prosthetic aortic valve. Pulmonic Valve Normal pulmonic valve. Great Vessels Mildly dilated aortic root. The pulmonary artery is normal size. Inferior vena cava collapse with respiration. Pericardium/Pleural No pericardial effusion. MMode/2D Measurements & Calculations RVDd: 4.0 cm LVOT diam: 2.0 cm Ao root diam: 4.1 cm LVOT area: 3.2 cm2 LAV(MOD-sp2): 202.0 ml SV(MOD-sp4): 77.0 ml LVAd ap4: 37.1 cm2 LVLd ap4: 8.2 cm EDV(MOD-sp4): 136.7 ml EDV(sp4-el): 143.2 ml LVAs ap4: 22.4 cm2 LVLs ap4: 7.0 cm ESV(MOD-sp4): 59.7 ml ESV(sp4-el): 61.3 ml EF(MOD-sp4): 56.3 % EF(sp4-el): 57.2 % SV(sp4-el): 81.9 ml Doppler Measurements & Calculations MV E max jamey: 155.8 cm/sec MV V2 max: 200.6 cm/sec MV P1/2t max jamey: 156.9 cm/sec MV A max jamey: 183.8 cm/sec MV max P.1 mmHg MV P1/2t: 60.5 msec MV E/A: 0.85 MV V2 mean: 116.0 cm/sec MV mean P.4 mmHg MV dec slope: 759.3 cm/sec2 MV V2 VTI: 48.9 cm MVA(P1/2t): 3.6 cm2 MVA(VTI): 1.8 cm2 Ao V2 max: 245.8 cm/sec LV V1 max: 137.1 cm/sec SV(LVOT): 86.0 ml Ao max P.2 mmHg LV V1 max P.5 mmHg Ao V2 mean: 168.9 cm/sec LV V1 mean P.2 mmHg Ao mean P.3 mmHg LV V1 mean: 96.0 cm/sec Ao V2 VTI: 48.5 cm LV V1 VTI: 26.6 cm AV (velocity ratio): 0.55 RADHA(I,D): 1.8 cm2 RADHA(V,D): 1.8 cm2 TR max jamey: 253.9 cm/sec TR max P.8 mmHg ECHO/Echo Complete Interpretation Summary Normal LV size. Severe concentric left ventricular hypertrophy. Left ventricular systolic function is normal. The estimated ejection fraction is 60 %. Stage 1 diastolic dysfunction. Normal prosthetic aortic valve. Mean aortic valve gradient 13 mmHg. Prior to the previous the aortic valve has been replaced and is functioning wel l. Ordering Physician: Jair Coto Referring Physician: Jair Coto Performed By: Ameena Ryan and Student
== END | disposition home or self-care (01) ==
LOC: CVS 10:00
PROVIDERS: PCP Family Medicine; Referring Provider Internal Medicine Cardiovascular Disease; Visit Provider Internal Medicine Cardiovascular Disease
DX: Z95.2 Presence of prosthetic heart valve (principal)
CPT/HCPCS: 93306

== ENCOUNTER 2022-11-10 08:16 | Emergency (ER) | payer MEDICARE, SELFPAY ==
[2022-11-10 08:17] VITALS: BP 174/77; PULSE 88; RESP 18; TEMP 35.9; O2SAT 95
--- NOTE | 2022-11-10 08:39 | CT_ITS ---
STUDY: CT ABDOMEN AND PELVIS WITHOUT CONTRAST REASON FOR EXAM: Male, 81 years old. Hematuria. History of kidney stones. Patient has a history of a treated prostate carcinoma. RADIATION DOSAGE (If Supplied By Facility): CTDIvol = ( 19.82 ) mGy, DLP = ( 1068.04 ) mGycm TECHNIQUE: Transaxial images were obtained from the dome of the diaphragm to the symphysis pubis without oral contrast, and without intravenous contrast. Sagittal and coronal images were reconstructed. Individualized dose optimization techniques were used for this CT. COMPARISON: Comparison is made with prior study dated October 06, 2022. FINDINGS: The visualized lung bases are unremarkable. The patient is status post aortic valve replacement. Coronary artery calcification. Normal liver. Normal gallbladder and extrahepatic biliary system. There are multiple benign calcified granulomata of the spleen. Normal pancreas. Normal bilateral adrenal glands. Scattered nonobstructive right intrarenal calculi. The largest calculus is in the lower pole of the right kidney and measures 6.9 mm. 2 mm nonobstructive calculus in the posterior mid pole calyx of the left kidney. Tiny calculus in the upper pole calyx of the left kidney. Tiny calculus in the lower pole calyx of the left kidney. There is a small hiatal hernia. Normal small intestine. There are multiple colonic diverticula consistent with diverticulosis. The appendix is visualized and appears normal. There is diffuse atherosclerotic calcification of the abdominal aorta and its major visceral branches, without a demonstrated aneurysm. Normal inferior vena cava. There is borderline retroperitoneal lymphadenopathy with enlarged nodes no greater than 10mm in the short axis diameter. Diffuse bladder wall thickening. Central prostatic calcification. Evidence of prior right inguinal hernia repair with mesh. Small residual right inguinal hernia containing fat. There are degenerative changes of the visualized lumbar spine. CT/Abdomen/Pelvis without Cont IMPRESSION: Small nonobstructive bilateral intrarenal calculi. Diffuse bladder wall thickening. Prostatic calcification. Sigmoid diverticulosis. Electronically Signed: Jules oV MD at 10:12 EDT ,
--- NOTE | 2022-11-10 08:40 | EX.ED.GUMALE ---
HPI History of Present Illness Chief Complaint: Complaint Informant: patient and spouse/S.O. Narrative Narrative: Patient presents with hematuria. Patient has a history of kidney stones. He has had them pulled out with cystoscopy and he is passed them. He was here about a month ago for 1. Since then he passed not only the one that was in his bladder but he states he has passed 2 more. His last stone was passed about 2 to 3 weeks ago. He was feeling well. Monday he started to have cloudy urine and a little bit of burning with urination. He started Bactrim that he had at home at this time. The urine was starting to clear up. He never developed nausea vomiting fevers or chills. He was not having pain in his flank. This morning about 3 AM he had some blood in the urine. They showed me a sample. He had a clot about 5 mm around and some slightly pinkish urine. He did not see a stone with this though. He has no pain whatsoever. He feels like he is emptying his bladder well. He has no flank pain. He has some lower back pain down near the sacrum but that is chronic and unchanged. He is eating and drinking fine. No nausea. Still no fevers or chills. He does not feel bad he just noticed he had blood in his urine. He [facility] there #1 concern is does he have another kidney stone. [facility] Medical History Abnormal electrocardiogram Ambulates with cane Anemia Aortic stenosis Arthritis Back pain BPH (benign prostatic hyperplasia) Cardiology follow-up encounter Chronic back pain Depression Diverticulosis Easy bruising Essential hypertension Gastric reflux GERD (gastroesophageal reflux disease) History of echocardiogram History of edema History of steroid therapy Hyperlipidemia Hypertension Inguinal hernia Leg cramps Loss of hearing Lung nodule Multiple premature ventricular complexes Non-smoker Nonrheumatic aortic (valve) stenosis Obesity Osteoarthritis Prostate cancer metastatic to bone Prostate disease Restless legs Wears glasses Wears hearing aid Home Medications acidophilus 25 million cell-pectin, citrus 100 mg tablet 1 tab PO DAILY probiotic 03/12/14 [History Last Taken 04/10/22] finasteride 5 mg tablet 5 mg PO DAILY BPH 03/21/22 [History Last Taken 04/10/22] abiraterone 250 mg tablet 1,000 mg PO QHS chemo pill 04/10/22 [History Last Taken 04/09/22] cholecalciferol (vitamin D3) 125 mcg (5,000 unit) tablet (Vitamin D3) 125 mcg PO DAILY supplement 04/10/22 [History Last Taken 04/10/22] xgvetowk-xso-naywa acid 0.4 mg-lycopene 300 mcg-lutein 250 mcg tablet (Centrum Silver) 1 tab PO DAILY supplement 04/10/22 [History Last Taken 04/10/22] potassium chloride 20 mEq tablet,extended release 20 meq PO BID 06/21/22 [History Last Taken Unknown] albuterol sulfate 90 mcg/actuation aerosol inhaler 2 puff inhalation Q6H PRN shortness of breath or wheezing 10/12/22 [History Last Taken Unknown] aspirin 81 mg tablet,delayed release 81 mg PO DAILY 10/12/22 [History Last Taken Unknown] atorvastatin 40 mg tablet 40 mg PO DAILY 10/12/22 [History Last Taken Unknown] furosemide 20 mg tablet 20 mg PO DAILY 10/12/22 [History Last Taken Unknown] losartan 50 mg tablet 50 mg PO DAILY 10/12/22 [History Last Taken Unknown] metoprolol succinate 50 mg tablet,extended release 24 hr 50 mg PO DAILY 10/12/22 [History Last Taken Unknown] omeprazole 20 mg capsule,delayed release 20 mg PO DAILY 10/12/22 [History Last Taken Unknown] tamsulosin 0.4 mg capsule 0.4 mg PO BID BPH 10/12/22 [History Last Taken Unknown] cephalexin 500 mg capsule 500 mg PO Q8H #30 caps 11/10/22 [Rx Last Taken Unknown] Allergy/AdvReac Type Severity Reaction Status Date / Time No Known Allergies Allergy Verified 10/20/22 15:45 Family History Father Heart disease Surgical History Amputated toe History of carpal tunnel release History of cystoscopy History of inguinal hernia repair History of left knee replacement History of total knee arthroplasty History of transcatheter aortic valve replacement (TAVR) (~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 Some specific details below. Constitutional: No recent fevers or chills. None now. None when he started his slight dysuria on Monday ENT: No difficulty swallowing. No swelling. No pain. CV: No chest pain or palpitations. Respiratory: No dyspnea. No hemoptysis. No difficulty taking breaths. GI: No nausea vomiting diarrhea. No abdominal pain. No flank pain. He is eating and drinking normally. : See history of present illness Musculoskeletal: No recent trauma. No pains. Skin: No rash. Nondiaphoretic. Neuro: No weakness or numbness. Endocrine: No polyuria or polydipsia. EXAM Physical Exam Narrative Exam Narrative: CONSTITUTIONAL: Patient is nontoxic in appearance. The patient looks comfortable. He is sitting comfortably on the edge of the bed in no acute distress at all. HEENT: No notable trauma. Mucous membranes moist. EYES: No conjunctival injection. No pallor CARDIOVASCULAR: Regular rate. Regular rhythm. No notable murmur. No JVD. RESPIRATORY: No respiratory distress. Breathing is unlabored. No wheezes. No rhonchi. No rales. No pain with a deep breath. GASTROINTESTINAL: Not distended. Bowel sounds are normal. No tenderness. No guarding. No rebound. No palpable mass. No bruit. Abdomen is overall quite benign. I do not feel an enlarged bladder either. GENITOURINARY: No tenderness over the bladder. No CVA tenderness on either side. MUSCULOSKELETAL: Atraumatic. Mild chronic peripheral edema. NEUROLOGICAL: Patient is alert and appropriate. No focal deficit noted. SKIN: No noted rashes. No diaphoresis. No pallor PSYCHIATRIC: Patient is calm. Mood is appropriate. Const Vital Signs: 11/10/22 08:17 Temperature 96.7 F L Temperature Source Temporal Pulse Rate 88 Respiratory Rate 18 Blood Pressure 174/77 H Blood Pressure Mean 109 Pulse Ox 95 MDM MDM MDM Narrative Medical decision making narrative: Patient CBC shows minimal anemia at 10.4. This can be rechecked and does not need treated. Patient's electrolytes show preserved renal function. Glucose is normal. No marked abnormalities. Patient's urine is cloudy with red cells white cells nitrites and leukocyte Estrace. This is consistent with UTI. My independent her potation the patient's CT scan of the abdomen without contrast shows no obstruction ileus or free air. Multiple stones are seen in both kidneys a little more on the right. But no significant hydronephrosis. Final reading also notes some slight thickening of the bladder wall. Patient feels well. He is eating and drinking not having fevers chills or elevated white count. He started with UTI symptoms and has been on about 2 to 2-1/2 days of antibiotics. He feels clinically better. I explained that he should stay on these antibiotics. I do not think were to the point we need to change these even based on his urine. I will send off another culture. If he is not improving in the next 2 days we will have him switch antibiotics and I will write for Keflex for him. I did review the most recent urine culture. He had Klebsiella. It was sensitive to almost everything except for Macrobid. It was sensitive to Bactrim and since that is one of the reasons I am encouraging him to stay on this as he does have signs of clinical improvement. If he has further bleeding clotting trouble urinating fevers vomiting or any other concerns he should return but at this point I think we can treat him as an outpatient. Lab Data Attestation: I reviewed the patient's lab results. Labs: Laboratory Results - last 24 hr 11/10/22 11/10/22 09:10 10:30 WBC 7.6 RBC 3.95 L Hgb 10.4 L Hct 33.8 L MCV 85.6 MCH 26.3 L MCHC 30.8 L RDW Std Deviation 53.2 H RDW Coeff of Marta 17.2 H Plt Count 215 MPV 8.7 Immature Gran % (Auto) 0.800 Neut % (Auto) 63.7 Lymph % (Auto) 15.9 L [place] % (Auto) 14.1 H Eos % (Auto) 4.6 Baso % (Auto) 0.9 Absolute Neuts (auto) 4.8 Absolute Lymphs (auto) 1.20 Nucleated RBC % 0 Sodium 140 Potassium 4.0 Chloride 109 H Carbon Dioxide 24.0 Anion Gap 7 BUN 20 H Creatinine 1.26 Est GFR (MDRD) Af Amer 70 Est GFR (MDRD) Non-Af 58 L BUN/Creatinine Ratio 15.9 Glucose 76 Calcium 9.0 Urine Color Brown Urine Clarity Cloudy Urine pH 6.5 Ur Specific [place] 1.015 Urine Protein 100 H Urine Glucose (UA) Normal Urine Ketones 5 H Urine Occult Blood 250 H Urine Nitrite Positive H Urine Bilirubin Negative Urine Urobilinogen 1 H Ur Leukocyte Esterase 500 H Urine RBC > 100 SEEN Urine WBC >100 SEEN Ur Squamous Epith Cells 0 SEEN Urine Bacteria 0 SEEN Urine Mucus 0 SEEN Radiography Diagnostic Testing: Clinical Impression(s) from Imaging Studies Abdomen/Pelvis CT 11/10/22 08:39 IMPRESSION: Small nonobstructive bilateral intrarenal calculi. Diffuse bladder wall thickening. Prostatic calcification. Sigmoid diverticulosis. Electronically Signed: Jules Vo MD at 10:12 EDT , Discharge Plan Triage Chief Complaint: Complaint ED Provider: Dayron Gamble Dx/Rx/DC Orders Clinical Impression: Acute UTI, Mild anemia Instructions: Urinary Tract Infections in Men Prescriptions: New cephalexin 500 mg capsule 500 mg PO Q8H Qty: 30 0RF No Action potassium chloride 20 mEq tablet extended release 20 meq PO BID furosemide 20 mg tablet 20 mg PO DAILY atorvastatin 40 mg tablet 40 mg PO DAILY Patient Comments: TAKE 1 TABLET BY MOUTH ONCE DAILY losartan 50 mg tablet 50 mg PO DAILY aspirin 81 mg tablet,delayed release (DR/EC) 81 mg PO DAILY metoprolol succinate 50 mg tablet extended release 24 hr 50 mg PO DAILY albuterol sulfate 90 mcg/actuation HFA aerosol inhaler 2 puff inhalation Q6H PRN (Reason: shortness of breath or wheezing) omeprazole 20 mg capsule,delayed release(DR/EC) 20 mg PO DAILY acidophilus-pectin, citrus 1 TABLET tablet 1 tab PO DAILY Patient Comments: probiotic tamsulosin 0.4 mg capsule 0.4 mg PO BID finasteride 5 mg tablet 5 mg PO DAILY abiraterone 250 mg tablet 1,000 mg PO QHS Centrum Silver 0.4 mg-300 mcg- 250 mcg Tablet 1 tab PO DAILY cholecalciferol (vitamin D3) [Vitamin D3] 125 mcg (5,000 unit) Tablet 125 mcg PO DAILY Primary Care Provider: Darrin Ramirez Referrals: Darrin Ramirez MD [Primary Care Provider] - 3-5 Days if not improving Disposition Disposition: Home, Self Care
[2022-11-10 09:17] VITALS: BMI 31.7
[2022-11-10 09:22] LABS: Absolute Neutrophil Count 4.8 X10^3/uL (2.0-7.7); Basophil# 0.07 X10^3/uL; Basophil% 0.9 % (0-1); Eosinophil# 0.35 X10^3/uL; Eosinophils% 4.6 % (0-5); Hematocrit 33.8 % (40-54); Hemoglobin 10.4 g/dL (13.0-16.5); Lymphocyte % 15.9 % (19-41); Mean Corp Hgb Conc 30.8 g/dL (32-36); Mean Corpuscular Hgb 26.3 pg (27.0-32.0); Mean Corpuscular Volume 85.6 fL (80-94); Mean Platelet Vol. 8.7 fl (6.2-12.0); Monocyte# 1.07 X10^3/uL; Monocyte% 14.1 % (0-10); NRBC Flagged by Analyzer 0 % (0-5); Neutrophil # 4.82 X10^3/uL (2.7-7.7); Neutrophil % 63.7 % (47-70); Platelet Count 215 K/mm3 (150-450); RBC Distribution Width CV 17.2 % (11.6-14.6); RBC Distribution Width SD 53.2 fl (35.1-43.9); Red Blood Count 3.95 M/mm3 (4.6-6.2); White Blood Count 7.6 K/mm3 (4.4-11.0)
[2022-11-10 09:34] LABS: Anion Gap 7 (5-15); BUN 20 mg/dL (7-18); BUN/Creat Ratio 15.9 RATIO (10-20); Chloride 109 mmol/L (98-107); Creatinine, Serum 1.26 mg/dL (0.70-1.30); EST Glomerular Filtration Rate 58 mL/min (>60); Est Glom Filt Rate - Afr Amer 70 mL/min (>60); Glucose 76 mg/dL (74-106); Sodium Level 140 mmol/L (136-145)
[2022-11-10 10:17] VITALS: RESP 20
[2022-11-10 10:37] LABS: Bacteria 0 SEEN /hpf (None Seen); Mucous, Urine 0 SEEN /hpf (<or=2+); Squamous Epithelial Cells - UA 0 SEEN /hpf (0-5)
[2022-11-10 10:49] LABS: Color, Urine Brown (Yellow); Glucose, Dipstick Normal (Normal); Ketone-Dipstick 5 mg/dl (Negative); Leukocyte Esterase-Dipstick 500 /ul (Negative); Nitrite-Dipstick Positive (Negative); Occult Blood-Urine 250 /ul (Negative); Protein-Dipstick 100 mg/dl (Negative); Specific Gravity, Urine 1.015 (1.002-1.030); Urine Bilirubin Dipstick Negative (Negative); Urine Clarity Cloudy (Clear); Urine Urobilinogen 1 mg/dl (Normal); Urine pH 6.5 (5.0 - 8.0)
[2022-11-10 10:55] LABS: Red Blood Cells-Urine > 100 SEEN /hpf (0-5); White Blood Cells >100 SEEN /hpf (0-5)
== END 2022-11-10 11:56 | disposition home or self-care (01) ==
PROVIDERS: Emergency Provider Emergency Medicine; PCP Family Medicine; Visit Provider Emergency Medicine
DX: N39.0 Urinary tract infection, site not specified (principal); D64.9 Anemia, unspecified; E78.5 Hyperlipidemia, unspecified; I10 Essential (primary) hypertension; N40.0 Benign prostatic hyperplasia without lower urinary tract symptoms; Z85.830 Personal history of malignant neoplasm of bone; Z85.46 Personal history of malignant neoplasm of prostate; Z79.82 Long term (current) use of aspirin; K21.9 Gastro-esophageal reflux disease without esophagitis; Z96.652 Presence of left artificial knee joint; Z95.2 Presence of prosthetic heart valve
CPT/HCPCS: 74176; 80048; 81001; 85025; 87086; 87088; 96360; 99283; J7030; J7040

== ENCOUNTER 2022-11-29 06:28 | Inpatient (IN) | payer MEDICARE, SELFPAY ==
[2022-11-29] VITALS (7 sets, daily range): BP systolic 149–188; BP diastolic 92–120; PULSE 77–108; RESP 16–19; TEMP 36.4–36.7; O2SAT 96–100; BMI 35.7
--- NOTE | 2022-11-29 06:40 | EDS_ITS ---
HPI History of Present Illness Chief Complaint: Complaint Detail of Chief Complaint: Urinary retention with gross hematuria. Prior history. Informant: patient and spouse/S.O. Pain Onset: Today Timing: Continuous Current Severity: Moderate Maximum Severity: Moderate Narrative Narrative: 81-year-old male history of prostate cancer for which he underwent radiation therapy. 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 Patient's had a history of urinary retention in the past. He has done well r ecently. Recent UTI for which she was on the antibiotic Keflex for 10 days which he finished. This morning he started having gross hematuria with clots. And having significant difficulty urinating. Denies any fever. He is on aspirin but no other blood thinners. Prior similar symptoms: Yes Recent Illness/Hospitalization: No PFSH PFSH Medical History Abnormal electrocardiogram Ambulates with cane Anemia Aortic stenosis Arthritis Back pain BPH (benign prostatic hyperplasia) Cardiology follow-up encounter Chronic back pain Depression Diverticulosis Easy bruising Essential hypertension Gastric reflux GERD (gastroesophageal reflux disease) History of echocardiogram History of edema History of steroid therapy Hyperlipidemia Hypertension Inguinal hernia Leg cramps Loss of hearing Lung nodule Multiple premature ventricular complexes Non-smoker Nonrheumatic aortic (valve) stenosis Obesity Osteoarthritis Prostate cancer metastatic to bone Prostate disease Restless legs Wears glasses Wears hearing aid Home Medications acidophilus 25 million cell-pectin, citrus 100 mg tablet 1 tab PO DAILY probiotic 03/12/14 [History Last Taken 04/10/22] finasteride 5 mg tablet 5 mg PO DAILY BPH 03/21/22 [History Last Taken 04/10/22] abiraterone 250 mg tablet 1,000 mg PO QHS chemo pill 04/10/22 [History Last Taken 04/09/22] cholecalciferol (vitamin D3) 125 mcg (5,000 unit) tablet (Vitamin D3) 125 mcg PO DAILY supplement 04/10/22 [History Last Taken 04/10/22] qiumbxng-tqw-vubrc acid 0.4 mg-lycopene 300 mcg-lutein 250 mcg tablet (Centrum Silver) 1 tab PO DAILY supplement 04/10/22 [History Last Taken 04/10/22] potassium chloride 20 mEq tablet,extended release 20 meq PO BID 06/21/22 [History Last Taken Unknown] albuterol sulfate 90 mcg/actuation aerosol inhaler 2 puff inhalation Q6H PRN shortness of breath or wheezing 10/12/22 [History Last Taken Unknown] aspirin 81 mg tablet,delayed release 81 mg PO DAILY 10/12/22 [History Last Taken Unknown] atorvastatin 40 mg tablet 40 mg PO DAILY 10/12/22 [History Last Taken Unknown] furosemide 20 mg tablet 20 mg PO DAILY 10/12/22 [History Last Taken Unknown] losartan 50 mg tablet 50 mg PO DAILY 10/12/22 [History Last Taken Unknown] metoprolol succinate 50 mg tablet,extended release 24 hr 50 mg PO DAILY 10/12/22 [History Last Taken Unknown] omeprazole 20 mg capsule,delayed release 20 mg PO DAILY 10/12/22 [History Last T aken Unknown] tamsulosin 0.4 mg capsule 0.4 mg PO BID BPH 10/12/22 [History Last Taken Unknown] cephalexin 500 mg capsule 500 mg PO Q8H #30 caps 11/10/22 [Rx Last Taken Unknown] Allergy/AdvReac Type Severity Reaction Status Date / Time No Known Allergies Allergy Verified 10/20/22 15:45 Family History Father Heart disease Surgical History Amputated toe History of carpal tunnel release History of cystoscopy History of inguinal hernia repair History of left knee replacement History of total knee arthroplasty History of transcatheter aortic valve replacement (TAVR) (~09/26/22) Social History household members: spouse Smoking Status: Never smoker substance use type: does not use ROS ROS ED ROS Narrative Gross hematuria and urinary retention. Otherwise has been feeling well. Review of Systems ROS Unobtainable: Denies due to encephalopathy Constitutional Constitutional ED: Denies chills or fever(s) Eyes Eyes: Denies blurry vision ENT ENT ED: Denies ear pain Cardiovascular Cardiovascular: Denies chest pain Respiratory/Chest Respiratory/Chest: Denies cough Gastrointestinal Gastrointestinal: Denies abdominal pain Genitourinary Genitourinary ED: Reports hematuria and other Details: Difficulty urinating. Urinary retention. ; Denies dysuria Musculoskeletal Musculoskeletal: Denies arthralgias Integumentary Denies abscess Neurologic Neurologic: Denies headache(s) Psychiatric Psychiatric: Denies anxiety Endocrine Endocrinology: Denies polydipsia Hematologic/Lymphatic Hematologic/Lymphatic: Denies easy bleeding Allergic/Immunologic Allergic/Immunologic ED: Denies mouth swelling EXAM Physical Exam Narrative Exam Narrative: Well-appearing 81-year-old male. Vital signs are stable initial blood pressure is elevated at 187/120 that may be secondary to pain because of his distended bladder. HEENT exam unremarkable. Neck nontender. Lungs are clear. Heart regular rhythm rate about 100. Abdomen is soft he is tender over his bladder and it feels distended. No peritoneal signs. No bowel obstruction. Moving all 4 extremities. 1+ pitting edema to his lower extremities which is chronic. Neurologically is awake and alert. No focal motor deficits. Const Vital Signs: 11/29/22 06:32 Temperature 98.0 F Temperature Source Oral Pulse Rate 106 H Respiratory Rate 19 H Blood Pressure 187/120 H Blood Pressure Mean 142 Pulse Ox 100 Oxygen Delivery Method Room Air Positive well nourished and well developed; Negative for cachectic, contractures or unkempt General Appearance ED: well developed and NAD; Negative for unkempt, cachectic, contractures or pallor Nutritional Appearance: Negative for cachectic HEENT Reports moist mucous membranes normocephalic and atraumatic; Negative for trauma or tenderness Eyes PERRL and EOMs intact bilaterally General Eye ED: Negative for pale conjunctiva or scleral icterus Neck no lymphadenopathy, supple and no JVD General: Negative for tenderness Resp normal respiratory effort and clear to auscultation bilaterally Auscultation: Negative for rales, rhonchi or wheezes Cardio regular rate, regular rhythm, S1 normal heart sound and S2 normal heart sound GI non-distended and no masses; Negative for non-tender GI Narrative: Tender over his bladder only. Distended bladder. Auscultation: normoactive bowel sounds Palpation: soft and tender; Negative for guarding no CVA tenderness Back/Spine no CVA tenderness Extremity Negative for normal to inspection Extremity Narrative: Chronic bilateral lower extremity edema. 1+. Pitting. General Extremety ED: Yes edema General Extremity: edema Neuro oriented x3, CN's II-XII intact bilaterally and moves all extremities Sensorium / Orientation: alert, oriented to person, oriented to place and oriented to time; Negative for orientation impaired, confused, lethargic or stuporous Motor Exam: strength 5/5 throughout Psych mental status grossly normal Appearance: Negative for unkempt Attitude: No agitated Mood & Affect: Negative for depressed Thought Process: normal thought process Thought Content: normal thought content Skin General Skin Exam: Negative for jaundice or pallor Rashes: no rashes Trauma: Negative for abrasion MDM MDM MDM Narrative Medical decision making narrative: 81-year-old male with gross hematuria and urinary retention. Urinalysis will be obtained. Nurses will place a 22 [place] Lockwood catheter and irrigate his bl adder. I do not think he needs any labs at this time. He does not need any imaging. Family requested something for his nerves prior to the catheter being placed to be given a milligram of Ativan. Nurses attempted to place a 22 [place] Lockwood catheter were unable to get it very far into the urethra. I then placed a 18 Pakistani coud? catheter. Patient tolerated procedure well. Blood-tinged urine was seen through the catheter. No significant clots. Patient has had 600 cc out of the Lockwood catheter. On repeat exam he is doing well at 7:30 in the morning. We are awaiting the urinalysis. Notably checked by the morning physician. Patient to be discharged home with outpatient follow-up with his urologist Dr. Kevin Mejia. Family and patient are comfortable with the plan. History & Record Review Discussion w/independent historian: Patient and Family Lab Data Attestation: I reviewed the patient's lab results. Lab results narrative: UA checked out to the morning physician. Discharge Plan Triage Chief Complaint: Complaint ED Provider: Luis Perez Dx/Rx/DC Orders Clinical Impression: History of prostate cancer, History of valvular heart disease, Gross hematuria, Acute urinary retention Instructions: ED Urinary Retention, Male Prescriptions: No Action potassium chloride 20 mEq tablet extended release 20 meq PO BID furosemide 20 mg tablet 20 mg PO DAILY atorvastatin 40 mg tablet 40 mg PO DAILY Patient Comments: TAKE 1 TABLET BY MOUTH ONCE DAILY losartan 50 mg tablet 50 mg PO DAILY aspirin 81 mg tablet,delayed release (DR/EC) 81 mg PO DAILY metoprolol succinate 50 mg tablet extended release 24 hr 50 mg PO DAILY albuterol sulfate 90 mcg/actuation HFA aerosol inhaler 2 puff inhalation Q6H PRN (Reason: shortness of breath or wheezing) omeprazole 20 mg capsule,delayed release(DR/EC) 20 mg PO DAILY acidophilus-pectin, citrus 1 TABLET tablet 1 tab PO DAILY Patient Comments: probiotic tamsulosin 0.4 mg capsule 0.4 mg PO BID finasteride 5 mg tablet 5 mg PO DAILY abiraterone 250 mg tablet 1,000 mg PO QHS Centrum Silver 0.4 mg-300 mcg- 250 mcg Tablet 1 tab PO DAILY cholecalciferol (vitamin D3) [Vitamin D3] 125 mcg (5,000 unit) Tablet 125 mcg PO DAILY cephalexin 500 mg capsule 500 mg PO Q8H Qty: 30 0RF Primary Care Provider: Darrin Ramirez Referrals: Darrin Ramirez MD [Primary Care Provider] - Cleve Mejia MD [Med Staff - Active Staff] - As soon as possible Activity Restrictions/Additional Instructions: Call and follow-up with your urologist Dr. Kevin Mejia Drink plenty of fluids to help wash out the blood from your bladder and also to help keep the catheter from getting obstructed. Return if the catheter is not flowing. He could possibly get obstructed. Disposition Disposition: Home, Self Care
[2022-11-29] MEDS: Lidocaine Jelly 2% 20 ML Syringe (URO-JET) 1 APPLIC TOPICAL (06:53)
[2022-11-29] MEDS: LORazepam 1 MG Tablet PO (06:53)
[2022-11-29 07:16] LABS: Mucous, Urine 0 SEEN /hpf (<or=2+)
[2022-11-29 07:32] LABS: Glucose, Dipstick Normal (Normal); Ketone-Dipstick 5 mg/dl (Negative); Leukocyte Esterase-Dipstick Negative /ul (Negative); Nitrite-Dipstick Negative (Negative); Occult Blood-Urine 250 /ul (Negative); Protein-Dipstick 500 mg/dl (Negative); Urine Bilirubin Dipstick Negative (Negative); Urine Urobilinogen Normal (Normal)
[2022-11-29 07:37] LABS: Color, Urine Red (Yellow); Urine Clarity Cloudy (Clear)
[2022-11-29 07:55] LABS: Bacteria 1+ /hpf (None Seen); Red Blood Cells-Urine > 100 SEEN /hpf (0-5); Squamous Epithelial Cells - UA 0-5 SEEN /hpf (0-5)
[2022-11-29 07:56] LABS: White Blood Cells 5-10 SEEN /hpf (0-5)
--- NOTE | 2022-11-29 15:55 | HP.PCM_ITS ---
HPI - General General Date of Admission: 11/29/22 Date of Service: 11/29/22 Chief Complaint: Gross hematuria HPI Narrative Work in, this is an 81-year-old male with a history of prostate cancer who also the history of kidney stones recently had a CAT scan done earlier this month that demonstrated just small fragment stones in both kidneys no hydronephrosis. He had been doing well I saw him in the office had been urinating well. Now rece ntly presented to the emergency room with severe bleeding and blood clots they attempted to place a 22 Hungarian catheter and couldn?t try to 20 Hungarian catheter and cut and finally put in 18 Hungarian catheter and told the follow-up in my office. Today he presents to the office and he just has straight blood coming from the catheter into a leg bag. With a significant amount of bleeding. [facility] Medical History Abnormal electrocardiogram Ambulates with cane Anemia Aortic stenosis Arthritis Back pain BPH (benign prostatic hyperplasia) Cardiology follow-up encounter Chronic back pain Depression Diverticulosis Easy bruising Essential hypertension Gastric reflux GERD (gastroesophageal reflux disease) History of echocardiogram History of edema History of steroid therapy Hyperlipidemia Hypertension Inguinal hernia Leg cramps Loss of hearing Lung nodule Multiple premature ventricular complexes Non-smoker Nonrheumatic aortic (valve) stenosis Obesity Osteoarthritis Prostate cancer metastatic to bone Prostate disease Restless legs Wears glasses Wears hearing aid Home Medications acidophilus 25 million cell-pectin, citrus 100 mg tablet 1 tab PO DAILY probiotic 03/12/14 [History Last Taken 04/10/22] finasteride 5 mg tablet 5 mg PO DAILY BPH 03/21/22 [History Last Taken 04/10/22] abiraterone 250 mg tablet 1,000 mg PO QHS chemo pill 04/10/22 [History Last Taken 04/09/22] cholecalciferol (vitamin D3) 125 mcg (5,000 unit) tablet (Vitamin D3) 125 mcg PO DAILY supplement 04/10/22 [History Last Taken 04/10/22] czpvbwbo-dyj-reoyo acid 0.4 mg-lycopene 300 mcg-lutein 250 mcg tablet (Centrum Silver) 1 tab PO DAILY supplement 04/10/22 [History Last Taken 04/10/22] potassium chloride 20 mEq tablet,extended release 20 meq PO BID 06/21/22 [History Last Taken Unknown] albuterol sulfate 90 mcg/actuation aerosol inhaler 2 puff inhalation Q6H PRN shortness of breath or wheezing 10/12/22 [History Last Taken Unknown] aspirin 81 mg tablet,delayed release 81 mg PO DAILY 10/12/22 [History Last Taken Unknown] atorvastatin 40 mg tablet 40 mg PO DAILY 10/12/22 [History Last Taken Unknown] furosemide 20 mg tablet 20 mg PO DAILY 10/12/22 [History Last Taken Unknown] losartan 50 mg tablet 50 mg PO DAILY 10/12/22 [History Last Taken Unknown] metoprolol succinate 50 mg tablet,extended release 24 hr 50 mg PO DAILY 10/12/22 [History Last Taken Unknown] omeprazole 20 mg capsule,delayed release 20 mg PO DAILY 10/12/22 [History Last Taken Unknown] tamsulosin 0.4 mg capsule 0.4 mg PO BID BPH 10/12/22 [History Last Taken Unknown] cephalexin 500 mg capsule 500 mg PO Q8H #30 caps 11/10/22 [Rx Last Taken Unknown] Allergy/AdvReac Type Severity Reaction Status Date / Time No Known Allergies Allergy Verified 10/20/22 15:45 Family History Father Heart disease Surgical History Amputated toe History of carpal tunnel release History of cystoscopy History of inguinal hernia repair History of left knee replacement History of total knee arthroplasty History of transcatheter aortic valve replacement (TAVR) (~09/26/22) Social History household members: spouse Smoking Status: Never smoker substance use type: does not use ROS ROS Narrative Gross hematuria Vital Signs Vital Signs Vital Signs: 11/29/22 06:32 11/29/22 08:36 Temperature 98.0 F Temperature Source Oral Pulse Rate 106 H 108 H Respiratory Rate 19 H 18 Blood Pressure 187/120 H 187/120 H Blood Pressure Mean 142 142 Pulse Ox 100 100 Oxygen Delivery Method Room Air Room Air Weight Weight: 113.1 kg Body Mass Index (BMI) 35.7 Physical Exam Const alert and oriented x3 General Appearance: cooperative HEENT normocephalic, head/scalp atraumatic, EAC's normal and TM's normal bilaterally Eyes PERRL and EOMs intact bilaterally Pupil: sluggish Neck no lymphadenopathy, supple and no JVD General: trachea midline Lymph Lymphatic: no lymphadenopathy noted, lymphedema and lymphadenopathy Resp normal respiratory effort, normal air movement and clear to auscultation bilaterally Cardio regular rate, regular rhythm and peripheral pulses 2+ throughout GI soft to palpation, non-tender and non-distended Extremity normal capillary refill and no clubbing, cyanosis or edema General Extremity: no tenderness to palpation of joints or extremities Skin no rashes or lesions noted General Skin Exam: turgor normal Lesions: no lesions Rashes: no rashes Neuro CN's II-XII intact bilaterally Speech: speech normal Motor Exam: strength 5/5 throughout; Negative for general weakness Psych thought process normal, cooperative and affect normal Appearance: appropriate Results Medical Records Data Attestation: I reviewed the patient's medical records Lab / Micro Data Attestation: I reviewed the patient's lab results. Labs: Laboratory Results - last 24 hr 11/29/22 07:10: Urine Color Red, Urine Clarity Cloudy, Urine pH 7.0, Ur Specific [place] 1.010, Urine Protein 500 H, Urine Glucose (UA) Normal, Urine Ketones 5 H , Urine Occult Blood 250 H, Urine Nitrite Negative, Urine Bilirubin Negative, Urine Urobilinogen Normal, Ur Leukocyte Esterase Negative, Urine RBC > 100 SEEN, Urine WBC 5-10 SEEN, Ur Squamous Epith Cells 0-5 SEEN, Urine Bacteria 1+, Urine Mucus 0 SEEN Assessment & Plan Assessment/Plan (1) Gross hematuria: (2) History of prostate cancer: (3) History of transcatheter aortic valve replacement (TAVR): (4) Bilateral lower extremity edema: (5) Abnormal echocardiogram: (6) Nonrheumatic aortic (valve) stenosis: (7) Multiple premature ventricular complexes: (8) Essential hypertension: (9) Hyperlipidemia: PLAN: Plan 81-year-old male history prostate cancer his ear stones who presents with a spontaneous gross hematuria etiologies unknown significant amount of bleeding from the bladder I can admit the patient for further workup will do a CAT scan and probably what to the patient the surgery tomorrow to do a cystoscopy to evaluate the source of the bleeding. Will with the patient the night do a CAT scan possible surgical intervention might be needed.
[2022-11-29 17:30] LABS: Absolute Lymphocyte Count 1.58 X10^3/uL (0.83-4.51); Absolute Neutrophil Count 6.1 X10^3/uL (2.0-7.7); Basophil# 0.04 X10^3/uL; Basophil% 0.4 % (0-1); Eosinophil# 0.37 X10^3/uL; Hematocrit 28.9 % (40-54); Hemoglobin 9.1 g/dL (13.0-16.5); Lymphocyte # 1.58 X10^3/ul (0.83-4.51); Lymphocyte % 17.1 % (19-41); Mean Corp Hgb Conc 31.5 g/dL (32-36); Mean Corpuscular Hgb 27.1 pg (27.0-32.0); Mean Platelet Vol. 8.4 fl (6.2-12.0); Monocyte# 1.13 X10^3/uL; Monocyte% 12.2 % (0-10); NRBC Flagged by Analyzer 0 % (0-5); Neutrophil # 6.11 X10^3/uL (2.7-7.7); Platelet Count 197 K/mm3 (150-450); RBC Distribution Width CV 17.4 % (11.6-14.6); RBC Distribution Width SD 54.3 fl (35.1-43.9); Red Blood Count 3.36 M/mm3 (4.6-6.2); White Blood Count 9.3 K/mm3 (4.4-11.0)
[2022-11-29] MEDS: Potassium Chloride Oral Tablet 20 MEQ PO (18:03)
[2022-11-29 18:23] LABS: Anion Gap 7 (5-15); BUN 22 mg/dL (7-18); BUN/Creat Ratio 23.2 RATIO (10-20); Calcium,Total 8.6 mg/dL (8.5-10.1); Chloride 108 mmol/L (98-107); Creatinine, Serum 0.95 mg/dL (0.70-1.30); EST Glomerular Filtration Rate 81 mL/min (>60); Est Glom Filt Rate - Afr Amer 98 mL/min (>60); Glucose 109 mg/dL (74-106); Potassium 3.8 mmol/L (3.5-5.1); Sodium Level 138 mmol/L (136-145)
[2022-11-29] MEDS: 0.9% Normal Saline 1,000 ML 50 ML IV (18:56)
[2022-11-29] MEDS: Ipratropium/Albuterol Sulfate 3 ML AMPUL.NEB INHALATION (19:30)
--- NOTE | 2022-11-29 20:20 | CT_ITS ---
STUDY: CT ABDOMEN AND PELVIS WITH CONTRAST REASON FOR EXAM: Male, 81 years old. Retention, hematuria RADIATION DOSAGE (If Supplied By Facility): CTDIvol = ( 16.04 ) mGy, DLP = ( 1229.28 ) mGycm TECHNIQUE: IV 100mL Isovue-370 was administered. Transaxial images were obtained from the dome of the diaphragm to the symphysis pubis. Multiplanar coronal and sagittal images were reformatted. Individualized Dose Optimization Techniques Were Used For This CT. COMPARISON: 11/10/2022 FINDINGS: The visualized lung bases are unremarkable. Aortic valve prosthesis. Normal liver. Normal gallbladder and extrahepatic biliary system. Normal spleen. Normal pancreas. Normal bilateral adrenal glands. Normal visualized stomach. Normal small intestine. Normal colon. The appendix is visualized and appears normal. Normal abdominal aorta. No retroperitoneal adenopathy. Normal right kidney. Normal left kidney. Bilateral punctate collecting system calculi. Similar prominent bilateral ureters. Lockwood catheter with small gas in and blood throughout the urinary bladder. Mild perivesical inflammatory stranding. There are prostatic calcifications. Normal abdominal wall. There are diffuse degenerative changes of the visualized lumbar spine. CT/Abdomen/Pelvis W IV Cont ONLY IMPRESSION: Blood throughout the urinary bladder is likely infectious or traumatic in origin. Electronically Signed: Abdirizak Staples MD at 20:47 EDT ,
[2022-11-29] MEDS: Tamsulosin HCl 0.4 MG Capsule PO (21:50)
[2022-11-29] MEDS: Metoprolol(XL)Succ 50 MG Tablet PO (21:51)
[2022-11-29] MEDS: Atorvastatin Calcium 40 MG Tablet PO (21:51)
[2022-11-29] MEDS: Furosemide 20 MG Tablet PO (21:52)
[2022-11-29] MEDS: Losartan Potassium 50 MG Tablet PO (21:52)
[2022-11-29] MEDS: Cephalexin 500 MG Capsule PO (21:55)
--- NOTE | 2022-11-29 23:05 | EKG12_ITS ---
Test Reason : PRE-OP Blood Pressure : / mmHG Vent. Rate : 077 BPM Atrial Rate : 077 BPM P-R Int : 216 ms QRS Dur : 096 ms QT Int : 424 ms P-R-T Axes : 037 003 018 degrees QTc Int : 479 ms Sinus rhythm with 1st degree A-V block Otherwise normal ECG When compared with ECG of 14-APR-2022 11:13, Premature atrial complexes are no longer Present Confirmed by ROB KEITH, CHRIS ([id number]), fan mail editor MADELINE AKERS ([id number]) on 12/01/2022 1:37:16 PM Referred By: [place] Confirmed By:CHRIS RIVAS MD
[2022-11-30] VITALS (8 sets, daily range): BP systolic 127–188; BP diastolic 70–102; PULSE 77–86; RESP 16–18; TEMP 36.4–37.3; O2SAT 95–99
--- NOTE | 2022-11-30 | THRO_PTH ---
PATIENT: KEENA FRIED LOC: [facility] U#:[id number] AGE/SX: 81/M ROOM: PR305 RE11/29/[address]: Dr. Cleve Mejia MD : [id number] BED: 1 DIS: 11/30/2022 SPEC #: [id number] RECD: 11/30/22 14:42 STATUS: JOHN PAIGE #: [id number] ANTHONY: 11/30/22 00:[address]: Cleve Mejia DEPT: SURGICAL PATHOLOGY RECD BY: Sebastian Dyson ENTERED: 11/30/22 14:42 SP TYPE: THROMBUS OTHR DR: Dr. Darrin Ramirez MD Tissues: BLOOD CLOT, NOS Procedures: Surgery Specimen Level IV HEADER OPERATION: Cysto, evacuation of blood clots, cauterization of bleeding PRE-OP DIAGNOSIS: Gross hematuria, history of prostate CA TISSUE SUBMITTED: Blood clots MICROSCOPIC DIAGNOSIS Urinary bladder blood clots, removal: Fragments of organizing blood clot. AM:blanca 12/01/2022 MICROSCOPIC DESCRIPTION Slides are reviewed. GROSS DESCRIPTION Received in fixative is one container labeled with the patient's name and designated blood clots. The specimen consists of multiple blood clots measuring in aggregate 9.0 x 8.0 x 3.5 cm. No tissue is identified. [employer] specimen is submitted in two cassettes. / SJ:blanca 12/01/2022 TC:5 CPT: 76278
--- NOTE | 2022-11-30 01:43 | NURSING ---
PT IRRIGATED WITH 800CC. PT HAD A LARGE AMOUNT OF BLACK CLOTS. 800CC RETURNED.
[2022-11-30 07:00] LABS: Absolute Lymphocyte Count 1.29 X10^3/uL (0.83-4.51); Absolute Neutrophil Count 4.7 X10^3/uL (2.0-7.7); Basophil# 0.04 X10^3/uL; Basophil% 0.5 % (0-1); Eosinophil# 0.38 X10^3/uL; Eosinophils% 5.2 % (0-5); Hematocrit 29.9 % (40-54); Hemoglobin 9.6 g/dL (13.0-16.5); Lymphocyte # 1.29 X10^3/ul (0.83-4.51); Lymphocyte % 17.6 % (19-41); Mean Corp Hgb Conc 32.1 g/dL (32-36); Mean Corpuscular Hgb 27.3 pg (27.0-32.0); Mean Corpuscular Volume 84.9 fL (80-94); Mean Platelet Vol. 9.2 fl (6.2-12.0); Monocyte# 0.91 X10^3/uL; Monocyte% 12.4 % (0-10); NRBC Flagged by Analyzer 0 % (0-5); Neutrophil # 4.68 X10^3/uL (2.7-7.7); Neutrophil % 63.9 % (47-70); Platelet Count 205 K/mm3 (150-450); RBC Distribution Width CV 17.4 % (11.6-14.6); RBC Distribution Width SD 54.4 fl (35.1-43.9); Red Blood Count 3.52 M/mm3 (4.6-6.2); White Blood Count 7.3 K/mm3 (4.4-11.0)
[2022-11-30 07:40] LABS: Anion Gap 5 (5-15); BUN 17 mg/dL (7-18); BUN/Creat Ratio 19.6 RATIO (10-20); Calcium,Total 8.7 mg/dL (8.5-10.1); Chloride 108 mmol/L (98-107); Creatinine, Serum 0.87 mg/dL (0.70-1.30); EST Glomerular Filtration Rate 89 mL/min (>60); Est Glom Filt Rate - Afr Amer 108 mL/min (>60); Estimated Creatinine Clearance 67.59 ml/min; Glucose 104 mg/dL (74-106); Potassium 3.9 mmol/L (3.5-5.1); Sodium Level 138 mmol/L (136-145)
[2022-11-30 08:24] LABS: International Normalized Ratio 1.1; Prothrombin Time (Protime)PT. 14.2 SECONDS (11.7-14.9)
[2022-11-30 08:25] LABS: Partial Thromboplast Time 26.4 Seconds (24.1-36.2)
[2022-11-30] MEDS: Metoprolol(XL)Succ 50 MG Tablet PO (08:36)
[2022-11-30] MEDS: Furosemide 20 MG Tablet PO (08:36)
[2022-11-30] MEDS: Losartan Potassium 50 MG Tablet PO (08:36)
[2022-11-30] MEDS: Cefazolin 2 GM in 0.9% Normal Saline 100 ML IV (09:14)
--- NOTE | 2022-11-30 10:05 | PCM.OPRPT ---
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 Patient was taken back to the operating room at a smooth induction of general anesthesia he was placed in dorsolithotomy position the catheter was removed I then went into the bladder with a 21 Bermudian rigid cystourethroscope entire length of the urethra was free of any strictures the sphincter was sort of tight from radiation scar and the prostate was also tight from radiation scar then once inside the bladder there was a lot of blood clots and had to manually irrigate out his blood clots and then searching for the source of the bleeding there was continuous oozing coming from the posterior anterior dome part of the bladder and eventually was able to reach this with the scope I used the Bugbee electrode and cauterized this area extensively to stop the bleeding once the bleeding was stopped then I checked the bladder again and there was no more bleeding. I then tried to place a catheter in the bladder but because of his irradiated prostate was all very firm and hard so I put a wire through and then used a guidewire and over the wire went and went with a catheter and was a to get a 20 Bermudian catheter into the bladder irrigated the catheter the urine was clear and then at this point patient anesthetic reversed and he was taken back to the PACU in good condition he will have to go home with a catheter. Surgeon: Cleve Mejia Type of Anesthesia: General Drains: ellison 20 fr Admit VTE Documentation VTE Present on Admission: No VTE Mechan Device Prophylaxis: SCD's VTE Pharm Prophylaxis ordered?: No
--- NOTE | 2022-11-30 10:12 | PHA.DC.MR.R ---
Pharmacy [place] Med Reconciliation Pharmacy Service has performed discharge medication reconciliation for this patient. The patient's discharge medication list was reviewed for discrepancies and discrepancies were resolved. Medications at Discharge Home Medications acidophilus 25 million cell-pectin, citrus 100 mg tablet 1 tab PO DAILY probiotic 03/12/14 finasteride 5 mg tablet 5 mg PO DAILY BPH 03/21/22 abiraterone 250 mg tablet 1,000 mg PO QHS chemo pill 04/10/22 cholecalciferol (vitamin D3) 125 mcg (5,000 unit) tablet (Vitamin D3) 125 mcg PO DAILY supplement 04/10/22 sxnvsfnh-zfc-cgmab acid 0.4 mg-lycopene 300 mcg-lutein 250 mcg tablet (Centrum Silver) 1 tab PO DAILY supplement 04/10/22 potassium chloride 20 mEq tablet,extended release 20 meq PO BID 06/21/22 albuterol sulfate 90 mcg/actuation aerosol inhaler 2 puff inhalation Q6H PRN shortness of breath or wheezing 10/12/22 atorvastatin 40 mg tablet 40 mg PO DAILY 10/12/22 furosemide 20 mg tablet 20 mg PO DAILY 10/12/22 losartan 50 mg tablet 50 mg PO DAILY 10/12/22 metoprolol succinate 50 mg tablet,extended release 24 hr 50 mg PO DAILY 10/12/22 omeprazole 20 mg capsule,delayed release 20 mg PO DAILY 10/12/22 tamsulosin 0.4 mg capsule 0.4 mg PO BID BPH 10/12/22 cephalexin 500 mg capsule 500 mg PO Q8H #30 caps 11/10/22
--- NOTE | 2022-11-30 12:40 | CASEMGMT ---
LILA BUSTOS Assessment: Face to Face with pt for initial transition planning/care coordination assessment. RN JULI introduced self and role at [facility], pt voices understanding and consents to assessment. Pt is A/O x4 and answers all questions appropriately at this time. Pt sitting up in bed in no distress. Care providers, pharmacy, and demographics verified/updated. Pt and dtr came in at the very end of the assessment, they deny any questions related to the dc plan. Admitting Dx: hematuria PCP:James Specialists:Jackie uro; Destiny onc Preferred Pharmacy: [facility] Insurance: [employer] [facility] Prescription Benefit: yes LNOK: Cheryl Baez, ; Laura Aliceal, dtr Living Arrangements: Pt lives with in a two story home with two steps to enter with a rail. Pt does not use the upper level any longer. Pt reports he is I in ADL's and denies concerns at home. Transportation: Pt drives self and denies concerns with transportation. DME/HHC/SNF: Pt has a cane that he uses and a walker that he does not. Pt denies hx of HHC or SNF stays. Pt states he has been in touch with hospice and he thinks he may decide to go with their services. He denies any need for them to be contacted from the hospital. He states he will decide this once home. Pt states no concerns with going home at time of dc. Pt states no further concerns/needs. CM to follow. Advised pt to ask CM if any further question/concerns/needs arise, voices understanding. Pt Goal: Home Plan: Home
[2022-11-30] MEDS: Cephalexin 500 MG Capsule PO (13:12)
== END 2022-11-30 17:13 | disposition home or self-care (01) | DRG 663 ==
LOC: ED 07:38 → MS3 16:21
PROVIDERS: Anesthesiology; Admitting Provider Urology; Emergency Provider Emergency Medicine; PCP Family Medicine; Visit Provider Urology
PROC: 0W3R8ZZ Control Bleeding in Genitourinary Tract, Via Natural or Artificial Opening Endoscopic (ICD-10-PCS; CPT 52214; principal; 2022-11-30 17:10)
DX: N30.41 Irradiation cystitis with hematuria (principal); C79.51 Secondary malignant neoplasm of bone; I10 Essential (primary) hypertension; I35.0 Nonrheumatic aortic (valve) stenosis; E78.5 Hyperlipidemia, unspecified; R60.0 Localized edema; R33.9 Retention of urine, unspecified; I49.3 Ventricular premature depolarization; Z87.442 Personal history of urinary calculi; Z85.46 Personal history of malignant neoplasm of prostate; Z95.2 Presence of prosthetic heart valve; R93.1 Abnormal findings on diagnostic imaging of heart and coronary circulation
CPT/HCPCS: 36415; 51702; 74177; 80048; 81001; 85025; 85610; 85730; 88304; 88305; 93005; 94640; 99284; J7030; Q9967; A4216; C1769; J2405

== ENCOUNTER → 2023-01-02 | Outpatient (CLI) | payer MEDICARE, SELFPAY | END | disposition home or self-care (01) | LOC: LABSPEC 16:11 | PROVIDERS: PCP Family Medicine; Referring Provider Nurse Practitioner; Visit Provider Nurse Practitioner | DX: N30.00 Acute cystitis without hematuria (principal) | CPT/HCPCS: 87077; 87086; 87088; 87186 ==

== ENCOUNTER 2023-01-08 15:52 | Emergency (ER) | payer MEDICARE, SELFPAY ==
[2023-01-08 15:54] VITALS: BP 192/101; PULSE 83; RESP 18; TEMP 35.9; O2SAT 99; BMI 36.8
--- NOTE | 2023-01-08 16:12 | EX.ED.DYSGE1 ---
HPI <GABRIELA Larsen - Last Filed: 01/08/23 17:49> History of Present Illness Chief Complaint: Complaint Narrative Narrative: 82-year-old male has history of prostate cancer s/p radiation and presents with gross hematuria and clots that started this afternoon. He states this occurs every few weeks since April 2022 and he has to come get his bladder irrigated. He has also been admitted in the past for cauterization and blood transfusions. He is not on blood thinners. He has suprapubic discomfort but no overt abdominal pain. No fever chills nausea or vomiting. His urologist is Dr. Mejia. [facility] <GABRIELA Larsen - Last Filed: 01/08/23 17:49> [facility] Medical History Abnormal electrocardiogram Ambulates with cane Anemia Aortic stenosis Arthritis Back pain BPH (benign prostatic hyperplasia) Cardiology follow-up encounter Chronic back pain Depression Diverticulosis Easy bruising Essential hypertension Gastric reflux GERD (gastroesophageal reflux disease) History of echocardiogram History of edema History of steroid therapy Hyperlipidemia Hypertension Inguinal hernia Leg cramps Loss of hearing Lung nodule Multiple premature ventricular complexes Non-smoker Nonrheumatic aortic (valve) stenosis Obesity Osteoarthritis Prostate cancer metastatic to bone Prostate disease Restless legs Wears glasses Wears hearing aid Home Medications acidophilus 25 million cell-pectin, citrus 100 mg tablet 1 tab PO DAILY probiotic 03/12/14 [History Last Taken 04/10/22] finasteride 5 mg tablet 5 mg PO DAILY BPH 03/21/22 [History Last Taken 04/10/22] abiraterone 250 mg tablet 1,000 mg PO QHS chemo pill 04/10/22 [History Last Taken 04/09/22] cholecalciferol (vitamin D3) 125 mcg (5,000 unit) tablet (Vitamin D3) 125 mcg PO DAILY supplement 04/10/22 [History Last Taken 04/10/22] nywprmpn-awv-fqilq acid 0.4 mg-lycopene 300 mcg-lutein 250 mcg tablet (Centrum Silver) 1 tab PO DAILY supplement 04/10/22 [History Last Taken 04/10/22] potassium chloride 20 mEq tablet,extended release 20 meq PO BID 06/21/22 [History Last Taken Unknown] albuterol sulfate 90 mcg/actuation aerosol inhaler 2 puff inhalation Q6H PRN shortness of breath or wheezing 10/12/22 [History Last Taken Unknown] atorvastatin 40 mg tablet 40 mg PO DAILY 10/12/22 [History Last Taken Unknown] furosemide 20 mg tablet 20 mg PO DAILY 10/12/22 [History Last Taken Unknown] losartan 50 mg tablet 50 mg PO DAILY 10/12/22 [History Last Taken Unknown] metoprolol succinate 50 mg tablet,extended release 24 hr 50 mg PO DAILY 10/12/22 [History Last Taken Unknown] omeprazole 20 mg capsule,delayed release 20 mg PO DAILY 10/12/22 [History Last Taken Unknown] tamsulosin 0.4 mg capsule 0.4 mg PO BID BPH 10/12/22 [History Last Taken Unknown] cephalexin 500 mg capsule 500 mg PO Q8H #30 caps 11/10/22 [Rx Last Taken Unknown] Allergy/AdvReac Type Severity Reaction Status Date / Time No Known Allergies Allergy Verified 01/08/23 15:54 Family History Father Heart disease Surgical History Amputated toe History of carpal tunnel release History of cystoscopy History of inguinal hernia repair History of left knee replacement History of total knee arthroplasty History of transcatheter aortic valve replacement (TAVR) (~09/26/22) Social History household members: spouse Smoking Status: Never smoker substance use type: does not use ROS <GABRIELA Larsen - Last Filed: 01/08/23 17:49> ROS ED ROS Narrative Constitutional: Negative for fever, chills, malaise. GI: Negative for abdominal pain, nausea, vomiting. : Positive for hematuria. EXAM <GABRIELA Larsen - Last Filed: 01/08/23 17:49> Physical Exam Narrative Exam Narrative: CONST: Patient sitting in no acute distress. EYES: Normal inspection. NECK: Normal inspection. RESP: No respiratory distress, CTAB. CVS: Regular rate and rhythm, no murmur, no gallop. ABD: Soft with suprapubic tenderness, no guarding or rebound, nondistended. SKIN: Color normal, no rash, warm, dry, intact. EXTREMITIES: Normal appearance, no pedal edema. NEURO: Oriented x4. PSYCH: Normal affect. Const Vital Signs: 01/08/23 15:54 Temperature 96.7 F L Temperature Source Temporal Pulse Rate 83 Respiratory Rate 18 Blood Pressure 192/101 H Blood Pressure Mean 131 Pulse Ox 99 Oxygen Delivery Method Room Air <Victorino Kimball MD - Last Filed: 01/09/23 15:24> Physical Exam Const Vital Signs: 01/08/23 15:54 Temperature 96.7 F L Temperature Source Temporal Pulse Rate 83 Respiratory Rate 18 Blood Pressure 192/101 H Blood Pressure Mean 131 Pulse Ox 99 Oxygen Delivery Method Room Air MDM <GABRIELA Larsen - Last Filed: 01/08/23 17:49> MDM MDM Narrative Medical decision making narrative: History gathered from: Patient and Patient has history of prostate cancer s/p radiation presents with gross hematuria and clots. He appears well and nontoxic. He is hypertensive with otherwise normal vital signs. He is suprapubic tenderness but no guarding or rebound. He states every time this happens he requires bladder irrigation so I ordered a Lockwood and irrigation. Blood counts and renal function will be assessed. Hemoglobin of 10.4 is higher than previous. Creatinine is 1.06. UA has blood but no infection. Nursing staff placed a 14 Erit[place]an Lockwood due to small meatus and after 1 L of irrigation the urine is molder automobile carpets pink. There are no clots and it is draining without issue. We do not have urology available this weekend and patient does not want transferred for continuous bladder irrigation. He would rather go home with a Lockwood in place and understands he needs to come back if it is blocked or clots off. He was instructed to see his urologist when the office opens in 2 days. He was discharged in stable condition. Lab Data Attestation: I reviewed the patient's lab results. Labs: Laboratory Results - last 24 hr 01/08/23 16:40 WBC 6.6 RBC 3.55 L Hgb 10.4 L Hct 31.6 L MCV 89.0 MCH 29.3 MCHC 32.9 RDW Std Deviation 47.7 H RDW Coeff of Marta 14.7 H Plt Count 222 MPV 9.4 Immature Gran % (Auto) 0.600 Neut % (Auto) 54.1 Lymph % (Auto) 21.5 [place] % (Auto) 16.8 H Eos % (Auto) 6.4 H Baso % (Auto) 0.6 Absolute Neuts (auto) 3.5 Absolute Lymphs (auto) 1.41 Nucleated RBC % 0 Sodium 139 Potassium 4.0 Chloride 109 H Carbon Dioxide 24.0 Anion Gap 6 BUN 23 H Creatinine 1.06 Estim Creat Clear Calc 54.52 Est GFR (MDRD) Af Amer 86 Est GFR (MDRD) Non-Af 71 BUN/Creatinine Ratio 21.7 H Glucose 123 H Calcium 8.6 Urine Color Red Urine Clarity Cloudy Urine pH 6.5 Ur Specific [place] 1.020 Urine Protein 500 H Urine Glucose (UA) Normal Urine Ketones 15 H Urine Occult Blood 250 H Urine Nitrite Negative Urine Bilirubin Negative Urine Urobilinogen Normal Ur Leukocyte Esterase 25 H Urine RBC > 100 SEEN Urine WBC 0 SEEN Ur Squamous Epith Cells 0 SEEN Urine Bacteria 0 SEEN Urine Mucus 0 SEEN <Victorino Kimball MD - Last Filed: 01/09/23 15:24> [facility] MDM Narrative Medical decision making narrative: History gathered from: Patient and Patient has history of prostate cancer s/p radiation presents with gross hematuria and clots. He appears well and nontoxic. He is hypertensive with otherwise normal vital signs. He is suprapubic tenderness but no guarding or rebound. He states every time this happens he requires bladder irrigation so I ordered a Lockwood and irrigation. Blood counts and renal function will be assessed. Hemoglobin of 10.4 is higher than previous. Creatinine is 1.06. UA has blood but no infection. Nursing staff placed a 14 [place]an Lockwood due to small meatus and after 1 L of irrigation the urine is molder automobile carpets pink. There are no clots and it is draining without issue. We do not have urology available this weekend and patient does not want transferred for continuous bladder irrigation. He would rather go home with a Lockwood in place and understands he needs to come back if it is blocked or clots off. He was instructed to see his urologist when the office opens in 2 days. He was discharged in stable condition. Dr. Kimball: I have personally performed a face to face assessment of the patient and have reviewed the ADWOA Note. I performed a substantive portion of the visit including all aspects of the following. My leary findings include: History is chronic intermittent gross hematuria with history of prostate carcinoma with radiation to the bladder. Patient often gets hematuria which requires cauterization by urology. Exam is afebrile. Vital signs noted. Regular rate and rhythm. Lungs clear to auscultation bilaterally. Abdomen soft and nontender. Medical Decision Making: Lockwood catheter. Irrigate. Check labs. I do not feel patient requires admission or transfer for transfusion. His gross hematuria has improved with irrigation. Shared decision making, he would like to be discharged with a catheter in place to follow-up with his urologist as an outpatient. I feel this is reasonable. Return instructions to the emergency department were reviewed. Disposition is discharged home in stable condition. Other additions or changes: [None] History & Record Review Additional record(s) reviewed:: Prior ED visit and Prior labs Lab Data Labs: Laboratory Results - last 24 hr 01/08/23 16:40 WBC 6.6 RBC 3.55 L Hgb 10.4 L Hct 31.6 L MCV 89.0 MCH 29.3 MCHC 32.9 RDW Std Deviation 47.7 H RDW Coeff of Marta 14.7 H Plt Count 222 MPV 9.4 Immature Gran % (Auto) 0.600 Neut % (Auto) 54.1 Lymph % (Auto) 21.5 [place] % (Auto) 16.8 H Eos % (Auto) 6.4 H Baso % (Auto) 0.6 Absolute Neuts (auto) 3.5 Absolute Lymphs (auto) 1.41 Nucleated RBC % 0 Sodium 139 Potassium 4.0 Chloride 109 H Carbon Dioxide 24.0 Anion Gap 6 BUN 23 H Creatinine 1.06 Estim Creat Clear Calc 54.52 Est GFR (MDRD) Af Amer 86 Est GFR (MDRD) Non-Af 71 BUN/Creatinine Ratio 21.7 H Glucose 123 H Calcium 8.6 Urine Color Red Urine Clarity Cloudy Urine pH 6.5 Ur Specific [place] 1.020 Urine Protein 500 H Urine Glucose (UA) Normal Urine Ketones 15 H Urine Occult Blood 250 H Urine Nitrite Negative Urine Bilirubin Negative Urine Urobilinogen Normal Ur Leukocyte Esterase 25 H Urine RBC > 100 SEEN Urine WBC 0 SEEN Ur Squamous Epith Cells 0 SEEN Urine Bacteria 0 SEEN Urine Mucus 0 SEEN Discharge Plan Triage Chief Complaint: Complaint ED Midlevel Provider: Jane Gould ED Provider: Victorino Kimball Dx/Rx/DC Orders Clinical Impression: Hematuria, Chronic anemia Instructions: ED Lockwood Catheter, Care Prescriptions: No Action potassium chloride 20 mEq tablet extended release 20 meq PO BID furosemide 20 mg tablet 20 mg PO DAILY atorvastatin 40 mg tablet 40 mg PO DAILY Patient Comments: TAKE 1 TABLET BY MOUTH ONCE DAILY losartan 50 mg tablet 50 mg PO DAILY metoprolol succinate 50 mg tablet extended release 24 hr 50 mg PO DAILY albuterol sulfate 90 mcg/actuation HFA aerosol inhaler 2 puff inhalation Q6H PRN (Reason: shortness of breath or wheezing) omeprazole 20 mg capsule,delayed release(DR/EC) 20 mg PO DAILY acidophilus-pectin, citrus 1 TABLET tablet 1 tab PO DAILY Patient Comments: probiotic tamsulosin 0.4 mg capsule 0.4 mg PO BID finasteride 5 mg tablet 5 mg PO DAILY abiraterone 250 mg tablet 1,000 mg PO QHS Centrum Silver 0.4 mg-300 mcg- 250 mcg Tablet 1 tab PO DAILY cholecalciferol (vitamin D3) [Vitamin D3] 125 mcg (5,000 unit) Tablet 125 mcg PO DAILY cephalexin 500 mg capsule 500 mg PO Q8H Qty: 30 0RF Primary Care Provider: Darrin Ramirez Referrals: Darrin Ramirez MD [Primary Care Provider] - Activity Restrictions/Additional Instructions: If catheter becomes blocked or clots off return to the ER. Follow up with Dr. Mejia on Monday. Disposition Disposition: Home, Self Care Discharge Date/Time: 01/08/23 18:28
[2023-01-08 16:47] LABS: Bacteria 0 SEEN /hpf (None Seen); Mucous, Urine 0 SEEN /hpf (<or=2+); Squamous Epithelial Cells - UA 0 SEEN /hpf (0-5); White Blood Cells 0 SEEN /hpf (0-5)
[2023-01-08 16:51] LABS: Absolute Lymphocyte Count 1.41 X10^3/uL (0.83-4.51); Absolute Neutrophil Count 3.5 X10^3/uL (2.0-7.7); Basophil# 0.04 X10^3/uL; Basophil% 0.6 % (0-1); Color, Urine Red (Yellow); Eosinophil# 0.42 X10^3/uL; Eosinophils% 6.4 % (0-5); Glucose, Dipstick Normal (Normal); Hematocrit 31.6 % (40-54); Hemoglobin 10.4 g/dL (13.0-16.5); Ketone-Dipstick 15 mg/dl (Negative); Leukocyte Esterase-Dipstick 25 /ul (Negative); Lymphocyte # 1.41 X10^3/ul (0.83-4.51); Lymphocyte % 21.5 % (19-41); Mean Corp Hgb Conc 32.9 g/dL (32-36); Mean Corpuscular Hgb 29.3 pg (27.0-32.0); Mean Platelet Vol. 9.4 fl (6.2-12.0); Monocyte% 16.8 % (0-10); NRBC Flagged by Analyzer 0 % (0-5); Neutrophil # 3.54 X10^3/uL (2.7-7.7); Neutrophil % 54.1 % (47-70); Nitrite-Dipstick Negative (Negative); Occult Blood-Urine 250 /ul (Negative); Platelet Count 222 K/mm3 (150-450); Protein-Dipstick 500 mg/dl (Negative); RBC Distribution Width CV 14.7 % (11.6-14.6); RBC Distribution Width SD 47.7 fl (35.1-43.9); Red Blood Count 3.55 M/mm3 (4.6-6.2); Urine Bilirubin Dipstick Negative (Negative); Urine Clarity Cloudy (Clear); Urine Urobilinogen Normal (Normal); Urine pH 6.5 (5.0 - 8.0); White Blood Count 6.6 K/mm3 (4.4-11.0)
[2023-01-08 17:04] LABS: Anion Gap 6 (5-15); BUN 23 mg/dL (7-18); BUN/Creat Ratio 21.7 RATIO (10-20); Calcium,Total 8.6 mg/dL (8.5-10.1); Chloride 109 mmol/L (98-107); Creatinine, Serum 1.06 mg/dL (0.70-1.30); EST Glomerular Filtration Rate 71 mL/min (>60); Est Glom Filt Rate - Afr Amer 86 mL/min (>60); Estimated Creatinine Clearance 54.52 ml/min; Glucose 123 mg/dL (74-106); Sodium Level 139 mmol/L (136-145)
[2023-01-08 17:05] LABS: Red Blood Cells-Urine > 100 SEEN /hpf (0-5)
== END 2023-01-08 18:28 | disposition home or self-care (01) ==
PROVIDERS: Physician Assistant; Emergency Provider Emergency Medicine; PCP Family Medicine; Visit Provider Emergency Medicine
DX: D64.9 Anemia, unspecified (principal); R31.9 Hematuria, unspecified; I10 Essential (primary) hypertension; E78.5 Hyperlipidemia, unspecified; Z85.46 Personal history of malignant neoplasm of prostate; Z85.830 Personal history of malignant neoplasm of bone; Z79.899 Other long term (current) drug therapy; Z92.21 Personal history of antineoplastic chemotherapy; K21.9 Gastro-esophageal reflux disease without esophagitis; N40.0 Benign prostatic hyperplasia without lower urinary tract symptoms; Z96.652 Presence of left artificial knee joint; Z95.2 Presence of prosthetic heart valve
CPT/HCPCS: 51702; 80048; 81001; 85025; 99284; A4216

== ENCOUNTER 2023-01-09 19:21 | Emergency (ER) | payer MEDICARE, SELFPAY ==
[2023-01-09 19:23] VITALS: BP 198/120; PULSE 90; RESP 22; TEMP 36.4; O2SAT 99; BMI 36.6
--- NOTE | 2023-01-09 19:45 | EDS_ITS ---
HPI History of Present Illness Chief Complaint: Lockwood C/O Narrative Narrative: 82-year-old male past medical history of prostate carcinoma with radiation to his bladder, gets chronic episodes of gross hematuria. He was seen in the emergency department and evaluated yesterday where a 14 Moroccan catheter was placed and his bladder was irrigated. Return to security attendant color. His hemoglobin was checked and was stable at 10. There are times when he has had to have blood transfusion. He elected to go home and try and follow-up with his urologist after the holiday. He returns to the emergency department, passing clots and bleeding around the catheter. His hematuria has continued and his urine became darker again. He denies other symptoms but presents because of the Lockwood catheter problem. He states that in the past he has had a three-way catheter placed. [facility] Medical History Abnormal electrocardiogram Ambulates with cane Anemia Aortic stenosis Arthritis Back pain BPH (benign prostatic hyperplasia) Cardiology follow-up encounter Chronic back pain Depression Diverticulosis Easy bruising Essential hypertension Gastric reflux GERD (gastroesophageal reflux disease) History of echocardiogram History of edema History of steroid therapy Hyperlipidemia Hypertension Inguinal hernia Leg cramps Loss of hearing Lung nodule Multiple premature ventricular complexes Non-smoker Nonrheumatic aortic (valve) stenosis Obesity Osteoarthritis Prostate cancer metastatic to bone Prostate disease Restless legs Wears glasses Wears hearing aid Home Medications acidophilus 25 million cell-pectin, citrus 100 mg tablet 1 tab PO DAILY probiotic 03/12/14 [History Last Taken 04/10/22] finasteride 5 mg tablet 5 mg PO DAILY BPH 03/21/22 [History Last Taken 04/10/22] abiraterone 250 mg tablet 1,000 mg PO QHS chemo pill 04/10/22 [History Last Taken 04/09/22] cholecalciferol (vitamin D3) 125 mcg (5,000 unit) tablet (Vitamin D3) 125 mcg PO DAILY supplement 04/10/22 [History Last Taken 04/10/22] ufmtqjna-flo-hmvrl acid 0.4 mg-lycopene 300 mcg-lutein 250 mcg tablet (Centrum Silver) 1 tab PO DAILY supplement 04/10/22 [History Last Taken 04/10/22] potassium chloride 20 mEq tablet,extended release 20 meq PO BID 06/21/22 [History Last Taken Unknown] albuterol sulfate 90 mcg/actuation aerosol inhaler 2 puff inhalation Q6H PRN shortness of breath or wheezing 10/12/22 [History Last Taken Unknown] atorvastatin 40 mg tablet 40 mg PO DAILY 10/12/22 [History Last Taken Unknown] furosemide 20 mg tablet 20 mg PO DAILY 10/12/22 [History Last Taken Unknown] losartan 50 mg tablet 50 mg PO DAILY 10/12/22 [History Last Taken Unknown] metoprolol succinate 50 mg tablet,extended release 24 hr 50 mg PO DAILY 10/12/22 [History Last Taken Unknown] omeprazole 20 mg capsule,delayed release 20 mg PO DAILY 10/12/22 [History Last Taken Unknown] tamsulosin 0.4 mg capsule 0.4 mg PO BID BPH 10/12/22 [History Last Taken Unknown] cephalexin 500 mg capsule 500 mg PO Q8H #30 caps 11/10/22 [Rx Last Taken Unknown] Allergy/AdvReac Type Severity Reaction Status Date / Time No Known Allergies Allergy Verified 01/09/23 19:27 Family History Father Heart disease Surgical History Amputated toe History of carpal tunnel release History of cystoscopy History of inguinal hernia repair History of left knee replacement History of total knee arthroplasty History of transcatheter aortic valve replacement (TAVR) (~09/26/22) Social History household members: spouse Smoking Status: Never smoker substance use type: does not use ROS ROS ED ROS Narrative Constitutional: No fever, no chills. HEENT: No sore throat. No neck pain. No loss of vision. No rhinorrhea. Cardiovascular: No chest pain. No palpitations. No pedal edema. Respiratory: No cough, no shortness of breath. Abdominal: No abdominal pain. No nausea. No vomiting. Genitourinary: No dysuria. Worsening gross hematuria. Passing clots and bleeding around 14 Moroccan catheter. Musculoskeletal: No myalgias. No arthralgias. Neurologic: No headaches. No dizziness. No lightheadedness. Skin: No rash. No change in color. Psychiatric: No depression. No anxiety. EXAM Physical Exam Narrative Exam Narrative: Afebrile. Vital signs noted. HEENT: Normocephalic. Atraumatic. PERRL, EOMI. Neck soft and supple. No point tenderness or step off. Cardiovascular: Regular rate and rhythm. No murmurs, rubs, or gallops appreciated. Respiratory: No tachypnea. Lungs clear to auscultation bilaterally. Gastrointestinal: Abdomen soft, nontender, with normoactive bowel sounds. No rebound or guarding. Genitourinary: +14 Moroccan catheter placed. Noted clots and slight bleeding on undergarment. Lockwood leg bag with dark red hematuria contained within. Neurological: Awake. Alert. Nonfocal, nonlateralizing. Skin: No rash. Normal color. No pallor. Musculoskeletal: No pedal edema. Full range of motion extremities. Const Vital Signs: 01/09/23 19:23 01/09/23 19:23 01/09/23 21:53 Temperature 97.6 F L 97.6 F L Temperature Source Temporal Temporal Pulse Rate 90 90 Respiratory Rate 22 H 22 H 16 Blood Pressure 198/120 H 198/120 H Blood Pressure Mean 146 146 Pulse Ox 99 99 Oxygen Delivery Method Room Air Room Air MDM MDM MDM Narrative Medical decision making narrative: I reviewed his prior records. I was the physician who saw him yesterday as well along with the ROD. Given that he is having gross hematuria, I discussed with the patient irrigation versus exchange of Lockwood catheter. He states that he has had larger catheters placed in the past. Attempt will be made on his direction to place a three-way Lockwood catheter and then perform bladder irrigation. I will recheck his CBC as he had a stable hemoglobin yesterday. I reviewed his laboratory work and his hemoglobin is 10.2, stable from 10.4 yesterday. His Lockwood catheter was removed and 22 Moroccan three-way catheter inserted. Patient tolerated procedure well by RN. His bladder was irrigated with 1 L of normal saline and has become security attendant in color. He is draining urine. I discussed with him possible need for transfer to a tertiary care center as urology is not available here today. Through shared decision-making, he states that his bleeding has improved and even yesterday with a smaller Moroccan Lockwood catheter, that his urine output was almost normal in color until it clotted off. As the patient has problems with chronic gross hematuria, he and his are comfortable with watching to make sure that he does not have continued hemorrhage. He would like to be discharged. As his Lockwood catheter is draining I do find this acceptable. He will follow-up with his urologist tomorrow. He states if he is unable to contact him and he has continued bleeding that he will return to the emergency department, or report to the emergency department at a tertiary care center. I feel he is stable for discharge and does not require observation currently. Return instructions were reviewed. Patient and family agreeable to the plan. Disposition is discharged home in stable condition. History & Record Review Discussion w/independent historian: Patient and Family Additional record(s) reviewed:: Prior ED visit and Prior labs Lab Data Attestation: I reviewed the patient's lab results. Labs: Laboratory Results - last 24 hr 01/09/23 19:55 WBC 9.1 RBC 3.62 L Hgb 10.2 L Hct 32.6 L MCV 90.1 MCH 28.2 MCHC 31.3 L RDW Std Deviation 48.2 H RDW Coeff of Marta 14.7 H Plt Count 218 MPV 8.8 Immature Gran % (Auto) 0.400 Neut % (Auto) 64.6 Lymph % (Auto) 17.0 L [place] % (Auto) 12.3 H Eos % (Auto) 5.3 H Baso % (Auto) 0.4 Absolute Neuts (auto) 5.9 Absolute Lymphs (auto) 1.54 Nucleated RBC % 0 Discharge Plan Triage Chief Complaint: Lockwood C/O ED Provider: Victorino Kimball Dx/Rx/DC Orders Clinical Impression: Gross hematuria, Acute urinary retention, Chronic anemia Instructions: ED Lockwood Catheter, Care, ED Hematuria Prescriptions: No Action potassium chloride 20 mEq tablet extended release 20 meq PO BID furosemide 20 mg tablet 20 mg PO DAILY atorvastatin 40 mg tablet 40 mg PO DAILY Patient Comments: TAKE 1 TABLET BY MOUTH ONCE DAILY losartan 50 mg tablet 50 mg PO DAILY metoprolol succinate 50 mg tablet extended release 24 hr 50 mg PO DAILY albuterol sulfate 90 mcg/actuation HFA aerosol inhaler 2 puff inhalation Q6H PRN (Reason: shortness of breath or wheezing) omeprazole 20 mg capsule,delayed release(DR/EC) 20 mg PO DAILY acidophilus-pectin, citrus 1 TABLET tablet 1 tab PO DAILY Patient Comments: probiotic tamsulosin 0.4 mg capsule 0.4 mg PO BID finasteride 5 mg tablet 5 mg PO DAILY abiraterone 250 mg tablet 1,000 mg PO QHS Centrum Silver 0.4 mg-300 mcg- 250 mcg Tablet 1 tab PO DAILY cholecalciferol (vitamin D3) [Vitamin D3] 125 mcg (5,000 unit) Tablet 125 mcg PO DAILY cephalexin 500 mg capsule 500 mg PO Q8H Qty: 30 0RF Primary Care Provider: Darrin Ramirez Referrals: Darrin Ramirez MD [Primary Care Provider] - Cleve Mejia MD [Med Staff - Active Staff] - 1 Day Activity Restrictions/Additional Instructions: Follow-up with Dr. Mejia as soon as possible. You need to return to the emergency department with continued bleeding from your Lockwood catheter, if it does not clear up more in the next 24 hours. Disposition Disposition: Home, Self Care
[2023-01-09 20:04] LABS: Absolute Lymphocyte Count 1.54 X10^3/uL (0.83-4.51); Absolute Neutrophil Count 5.9 X10^3/uL (2.0-7.7); Basophil# 0.04 X10^3/uL; Basophil% 0.4 % (0-1); Eosinophil# 0.48 X10^3/uL; Eosinophils% 5.3 % (0-5); Hematocrit 32.6 % (40-54); Hemoglobin 10.2 g/dL (13.0-16.5); Lymphocyte # 1.54 X10^3/ul (0.83-4.51); Mean Corp Hgb Conc 31.3 g/dL (32-36); Mean Corpuscular Hgb 28.2 pg (27.0-32.0); Mean Corpuscular Volume 90.1 fL (80-94); Mean Platelet Vol. 8.8 fl (6.2-12.0); Monocyte# 1.11 X10^3/uL; Monocyte% 12.3 % (0-10); NRBC Flagged by Analyzer 0 % (0-5); Neutrophil # 5.85 X10^3/uL (2.7-7.7); Neutrophil % 64.6 % (47-70); Platelet Count 218 K/mm3 (150-450); RBC Distribution Width CV 14.7 % (11.6-14.6); RBC Distribution Width SD 48.2 fl (35.1-43.9); Red Blood Count 3.62 M/mm3 (4.6-6.2); White Blood Count 9.1 K/mm3 (4.4-11.0)
[2023-01-09 21:53] VITALS: RESP 16
[2023-01-09 22:08] VITALS: BP 136/78; PULSE 85; RESP 16; O2SAT 98
== END 2023-01-09 22:13 | disposition home or self-care (01) ==
PROVIDERS: Emergency Provider Emergency Medicine; PCP Family Medicine; Visit Provider Emergency Medicine
DX: R31.0 Gross hematuria (principal); E78.5 Hyperlipidemia, unspecified; D64.9 Anemia, unspecified; R33.9 Retention of urine, unspecified; I10 Essential (primary) hypertension; Z85.46 Personal history of malignant neoplasm of prostate; Z85.830 Personal history of malignant neoplasm of bone; Z92.21 Personal history of antineoplastic chemotherapy; K21.9 Gastro-esophageal reflux disease without esophagitis; N40.0 Benign prostatic hyperplasia without lower urinary tract symptoms; Z96.652 Presence of left artificial knee joint; Z95.2 Presence of prosthetic heart valve
CPT/HCPCS: 51702; 85025; 99284; A4216

== ENCOUNTER 2023-02-10 11:25 | Emergency (ER) | payer MEDICARE, SELFPAY ==
[2023-02-10 11:26] VITALS: BP 175/89; PULSE 78; RESP 18; TEMP 36; O2SAT 98; BMI 35.9
--- NOTE | 2023-02-10 12:43 | EX.ED.GUMALE ---
HPI History of Present Illness Chief Complaint: Complaint Narrative Narrative: 82-year-old male presents with his because of discharge around the catheter that he has had in place since January 08. This was over a month ago. He states he initially had bleeding from his bladder. Lockwood catheter was inserted, and he has not had problems since then. He switched urologist and now has an appointment with a urologist that is not local. His appointment is for the , approximately 2 weeks from now, where they want to use the catheter and perform cystoscopy. He was told not to remove the catheter by his primary care provider. He states that he has been having discharge that is yellow in nature around the catheter and is sometimes at the tip of his penis. He denies any fevers or chills, no hematuria, and his urine has not appeared cloudy. This has been ongoing for the last few weeks. [facility] Medical History Abnormal electrocardiogram Ambulates with cane Anemia Aortic stenosis Arthritis Back pain BPH (benign prostatic hyperplasia) Cardiology follow-up encounter Chronic back pain Depression Diverticulosis Easy bruising Essential hypertension Gastric reflux GERD (gastroesophageal reflux disease) History of echocardiogram History of edema History of steroid therapy Hyperlipidemia Hypertension Inguinal hernia Leg cramps Loss of hearing Lung nodule Multiple premature ventricular complexes Non-smoker Nonrheumatic aortic (valve) stenosis Obesity Osteoarthritis Prostate cancer metastatic to bone Prostate disease Restless legs Wears glasses Wears hearing aid Home Medications acidophilus 25 million cell-pectin, citrus 100 mg tablet 1 tab PO DAILY probiotic 03/12/14 [History Last Taken 04/10/22] finasteride 5 mg tablet 5 mg PO DAILY BPH 03/21/22 [History Last Taken 04/10/22] abiraterone 250 mg tablet 1,000 mg PO QHS chemo pill 04/10/22 [History Last Taken 04/09/22] cholecalciferol (vitamin D3) 125 mcg (5,000 unit) tablet (Vitamin D3) 125 mcg PO DAILY supplement 04/10/22 [History Last Taken 04/10/22] sxxpwhgb-jzm-vvvfj acid 0.4 mg-lycopene 300 mcg-lutein 250 mcg tablet (Centrum Silver) 1 tab PO DAILY supplement 04/10/22 [History Last Taken 04/10/22] potassium chloride 20 mEq tablet,extended release 20 meq PO BID 06/21/22 [History Last Taken Unknown] albuterol sulfate 90 mcg/actuation aerosol inhaler 2 puff inhalation Q6H PRN shortness of breath or wheezing 10/12/22 [History Last Taken Unknown] atorvastatin 40 mg tablet 40 mg PO DAILY 10/12/22 [History Last Taken Unknown] furosemide 20 mg tablet 20 mg PO DAILY 10/12/22 [History Last Taken Unknown] losartan 50 mg tablet 50 mg PO DAILY 10/12/22 [History Last Taken Unknown] metoprolol succinate 50 mg tablet,extended release 24 hr 50 mg PO DAILY 10/12/22 [History Last Taken Unknown] omeprazole 20 mg capsule,delayed release 20 mg PO DAILY 10/12/22 [History Last Taken Unknown] tamsulosin 0.4 mg capsule 0.4 mg PO BID BPH 10/12/22 [History Last Taken Unknown] cephalexin 500 mg capsule 500 mg PO Q8H #30 caps 11/10/22 [Rx Last Taken Unknown] cephalexin 500 mg capsule 500 mg PO TID #21 caps 02/10/23 [Rx Last Taken Unknown] Allergy/AdvReac Type Severity Reaction Status Date / Time No Known Allergies Allergy Verified 02/10/23 11:28 Family History Father Heart disease Surgical History Amputated toe History of carpal tunnel release History of cystoscopy History of inguinal hernia repair History of left knee replacement History of total knee arthroplasty History of transcatheter aortic valve replacement (TAVR) (~09/26/22) Social History household members: spouse Smoking Status: Never smoker substance use type: does not use ROS ROS ED ROS Narrative Constitutional: No fever, no chills. HEENT: No sore throat. No neck pain. No loss of vision. No rhinorrhea. Cardiovascular: No chest pain. No palpitations. No pedal edema. Respiratory: No cough, no shortness of breath. Abdominal: No abdominal pain. No nausea. No vomiting. Genitourinary: No dysuria. No hematuria. Indwelling Lockwood catheter. Report of drainage around catheter that is purulent and yellow in nature. Musculoskeletal: No myalgias. No arthralgias. Neurologic: No headaches. No dizziness. No lightheadedness. Skin: No rash. No change in color. Psychiatric: No depression. No anxiety. EXAM Physical Exam Narrative Exam Narrative: Afebrile. Vital signs noted. HEENT: Normocephalic. Atraumatic. PERRL, EOMI. Neck soft and supple. No point tenderness or step off. Cardiovascular: Regular rate and rhythm. No murmurs, rubs, or gallops appreciated. Respiratory: No tachypnea. Lungs clear to auscultation bilaterally. Gastrointestinal: Abdomen soft, nontender, with normoactive bowel sounds. No rebound or guarding. Genitourinary: Lockwood catheter is in place, no noted yellow discharge or hematuria noted. Clear to yellow urine in bag/leg bag. Neurological: Awake. Alert. Nonfocal, nonlateralizing. Skin: No rash. Normal color. No pallor. Musculoskeletal: No pedal edema. Full range of motion extremities. Const Vital Signs: 02/10/23 11:26 Temperature 96.8 F L Temperature Source Temporal Pulse Rate 78 Respiratory Rate 18 Blood Pressure 175/89 H Blood Pressure Mean 117 Pulse Ox 98 Oxygen Delivery Method Room Air MDM MDM MDM Narrative Medical decision making narrative: While I see no evidence of discharge, I do feel that he probably has a urethritis from indwelling Lockwood catheter. I do not feel that laboratory work is indicated and I do not feel that imaging is indicated. I discussed antibiotic use with them and he usually takes Keflex for any urinary problems. Given his age, I am hesitant to use ciprofloxacin although E. coli is suspected. It was decided that he will be placed on Keflex 3 times daily and he was given his first dose of Keflex here in the emergency department. Prescription for remainder for the next 7 days was given. 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 I do not feel he requires observation. Return instructions to the emergency department were reviewed. Disposition is discharged home in stable condition. Patient is agreeable with the plan. Discharge Plan Triage Chief Complaint: Complaint ED Provider: Victorino Kimball Dx/Rx/DC Orders Clinical Impression: Lockwood catheter in place, Urethritis Instructions: ED Urethritis Infec Vs Inflam ... Prescriptions: New cephalexin 500 mg capsule 500 mg PO TID Qty: 21 0RF No Action potassium chloride 20 mEq tablet extended release 20 meq PO BID furosemide 20 mg tablet 20 mg PO DAILY atorvastatin 40 mg tablet 40 mg PO DAILY Patient Comments: TAKE 1 TABLET BY MOUTH ONCE DAILY losartan 50 mg tablet 50 mg PO DAILY metoprolol succinate 50 mg tablet extended release 24 hr 50 mg PO DAILY albuterol sulfate 90 mcg/actuation HFA aerosol inhaler 2 puff inhalation Q6H PRN (Reason: shortness of breath or wheezing) omeprazole 20 mg capsule,delayed release(DR/EC) 20 mg PO DAILY acidophilus-pectin, citrus 1 TABLET tablet 1 tab PO DAILY Patient Comments: probiotic tamsulosin 0.4 mg capsule 0.4 mg PO BID finasteride 5 mg tablet 5 mg PO DAILY abiraterone 250 mg tablet 1,000 mg PO QHS Centrum Silver 0.4 mg-300 mcg- 250 mcg Tablet 1 tab PO DAILY cholecalciferol (vitamin D3) [Vitamin D3] 125 mcg (5,000 unit) Tablet 125 mcg PO DAILY cephalexin 500 mg capsule 500 mg PO Q8H Qty: 30 0RF Primary Care Provider: Darrin Ramirez Referrals: Darrin Ramirez MD [Primary Care Provider] - Activity Restrictions/Additional Instructions: Follow-up with your urologist as scheduled on the . Disposition Disposition: Home, Self Care
[2023-02-10] MEDS: Cephalexin 250 MG Capsule 500 MG PO (12:58)
== END 2023-02-10 13:06 | disposition home or self-care (01) ==
LOC: ED 13:02
PROVIDERS: Emergency Provider Emergency Medicine; PCP Family Medicine; Visit Provider Emergency Medicine
DX: N34.2 Other urethritis (principal); E78.5 Hyperlipidemia, unspecified; I10 Essential (primary) hypertension; N40.0 Benign prostatic hyperplasia without lower urinary tract symptoms; Z79.899 Other long term (current) drug therapy; K21.9 Gastro-esophageal reflux disease without esophagitis; Z96.652 Presence of left artificial knee joint; Z96.659 Presence of unspecified artificial knee joint; Z95.2 Presence of prosthetic heart valve
CPT/HCPCS: 51701; 99282; P9612

== ENCOUNTER 2023-04-25 12:26 | Emergency (ER) | payer MEDICARE, SELFPAY ==
[2023-04-25 12:26] VITALS: BP 165/123; PULSE 102; RESP 16; TEMP 36.3; O2SAT 97
--- NOTE | 2023-04-25 12:42 | RAD_ITS ---
STUDY: X-RAY - RIGHT FEMUR REASON FOR STUDY: Male, 82 years old. Hip fracture TECHNIQUE: 4 view(s) of the femur. COMPARISON: None. FINDINGS: Normal visualized femur. Evidence of prior right inguinal hernia repair. Prior right total hip preplacement. RAD/Femur Min 2 Views IMPRESSION: No acute fracture is seen. Status post right knee replacement. Electronically Signed: Jules Vo MD at 13:55 EST ,
--- NOTE | 2023-04-25 12:42 | EKG12_ITS ---
Test Reason : PREOP Blood Pressure : / mmHG Vent. Rate : 101 BPM Atrial Rate : 101 BPM P-R Int : 180 ms QRS Dur : 092 ms QT Int : 384 ms P-R-T Axes : 012 022 029 degrees QTc Int : 497 ms Sinus tachycardia with Premature atrial complexes Otherwise normal ECG Confirmed by ROB KEITH, CHRIS ([id number]), technical writer and editor MADELINE AKERS ([id number]) on 04/26/2023 5:57:52 AM Referred By: Confirmed By:CHRIS RIVAS MD
--- NOTE | 2023-04-25 12:42 | RAD_ITS ---
STUDY: X-RAY - PELVIS REASON FOR EXAM: Male, 82 years old. Fracture TECHNIQUE: One view of the pelvis was obtained. COMPARISON: None. FINDINGS: There is a non-specific bowel gas pattern. Prior right inguinal hernia repair. There are multiple calcified phleboliths. Disc space narrowing at the L5-S1 level. Normal bilateral iliac wings, sacroiliac joints and visualized sacrum. Normal visualized bilateral superior and inferior pubic rami. Normal pubic symphysis. Normal ischial tuberosities. Normal visualized right femoral head. Normal right acetabulum. There is mild articular joint space narrowing of the right hip. Normal visualized left femoral head. Normal left acetabulum. There is mild articular joint space narrowing of the left hip. RAD/Pelvis 1 or 2 Views IMPRESSION: Degenerative changes of both hip joints. No fracture is seen. Electronically Signed: Jules Vo MD at 13:56 EST ,
--- NOTE | 2023-04-25 12:42 | RAD_ITS ---
STUDY: X-RAY CHEST REASON FOR EXAM: Male, 82 years old. Preoperative TECHNIQUE: Single AP portable view of the chest. COMPARISON: Comparison is made with prior chest radiograph dated August 01, 2022. FINDINGS: Linear density at the right lung base suggestive of underlying atelectasis and/or scarring. There is no demonstrated pleural abnormality. There is mild cardiac enlargement. Normal mediastinum and jose angel. Normal visualized pulmonary arteries. There is atherosclerotic tortuosity of the aortic arch and descending thoracic aorta. There are diffuse degenerative changes of the visualized thoracic spine. Normal visualized ribs, clavicles, and shoulders. There is no demonstrated abnormality of the visualized soft tissue structures of the upper abdomen. RAD/Chest 1 View (Portable) IMPRESSION: Mild cardiomegaly. Linear atelectasis and/or scarring at the right lung base. Electronically Signed: Jules Vo MD at 13:52 EST ,
--- NOTE | 2023-04-25 12:51 | EX.ED.DYSGE1 ---
HPI <ZEN Coburn - Last Filed: 04/25/23 15:49> History of Present Illness Chief Complaint: Lower Extremity Injury Narrative Narrative: Patient is a 82-year-old male with history of hypertension, hyperlipidemia history of prostate cancer currently has a Lockwood catheter placed presenting to the emergency department after mechanical fall on Monday, suspicious for a right hip fracture. Patient states he fell Monday after tripping, he did land on his right side striking his head however did not have any LOC is not on any blood thinners. Patient states he was unable to get around and had a outpatient x-ray today, they were concerned for right hip fracture and sent him to the emergency department. Patient denies any other pain PFSH <ZEN Coburn - Last Filed: 04/25/23 15:49> PFSH Medical History Abnormal electrocardiogram Ambulates with cane Anemia Aortic stenosis Arthritis Back pain BPH (benign prostatic hyperplasia) Cardiology follow-up encounter Chronic back pain Depression Diverticulosis Easy bruising Essential hypertension Gastric reflux GERD (gastroesophageal reflux disease) History of echocardiogram History of edema History of steroid therapy Hyperlipidemia Hypertension Inguinal hernia Leg cramps Loss of hearing Lung nodule Multiple premature ventricular complexes Non-smoker Nonrheumatic aortic (valve) stenosis Obesity Osteoarthritis Prostate cancer metastatic to bone Prostate disease Restless legs Wears glasses Wears hearing aid Home Medications acidophilus 25 million cell-pectin, citrus 100 mg tablet 1 tab PO DAILY probiotic 03/12/14 [History Last Taken 04/10/22] finasteride 5 mg tablet 5 mg PO DAILY BPH 03/21/22 [History Last Taken 04/10/22] abiraterone 250 mg tablet 1,000 mg PO QHS chemo pill 04/10/22 [History Last Taken 04/09/22] cholecalciferol (vitamin D3) 125 mcg (5,000 unit) tablet (Vitamin D3) 125 mcg PO DAILY supplement 04/10/22 [History Last Taken 04/10/22] jugjtrir-vjh-fxrjb acid 0.4 mg-lycopene 300 mcg-lutein 250 mcg tablet (Centrum Silver) 1 tab PO DAILY supplement 04/10/22 [History Last Taken 04/10/22] potassium chloride 20 mEq tablet,extended release 20 meq PO BID 06/21/22 [History Last Taken Unknown] albuterol sulfate 90 mcg/actuation aerosol inhaler 2 puff inhalation Q6H PRN shortness of breath or wheezing 10/12/22 [History Last Taken Unknown] atorvastatin 40 mg tablet 40 mg PO DAILY 10/12/22 [History Last Taken Unknown] furosemide 20 mg tablet 20 mg PO DAILY 10/12/22 [History Last Taken Unknown] losartan 50 mg tablet 50 mg PO DAILY 10/12/22 [History Last Taken Unknown] metoprolol succinate 50 mg tablet,extended release 24 hr 50 mg PO DAILY 10/12/22 [History Last Taken Unknown] omeprazole 20 mg capsule,delayed release 20 mg PO DAILY 10/12/22 [History Last Taken Unknown] tamsulosin 0.4 mg capsule 0.4 mg PO BID BPH 10/12/22 [History Last Taken Unknown] cephalexin 500 mg capsule 500 mg PO Q8H #30 caps 11/10/22 [Rx Last Taken Unknown] cephalexin 500 mg capsule 500 mg PO TID #21 caps 02/10/23 [Rx Last Taken Unknown] ondansetron 4 mg disintegrating tablet 4 mg PO Q8H PRN PRN Nausea #10 tabs 04/25/23 [Rx Last Taken Unknown] oxycodone-acetaminophen 5 mg-325 mg tablet (Percocet) 1 tab PO Q8H PRN pain 3 days #10 tabs 04/25/23 [Rx Last Taken Unknown] Allergy/AdvReac Type Severity Reaction Status Date / Time No Known Allergies Allergy Verified 04/25/23 12:28 Family History Father Heart disease Surgical History Amputated toe History of carpal tunnel release History of cystoscopy History of inguinal hernia repair History of left knee replacement History of total knee arthroplasty History of transcatheter aortic valve replacement (TAVR) (~09/26/22) Social History household members: spouse Smoking Status: Never smoker substance use type: does not use ROS <ZEN Coburn - Last Filed: 04/25/23 15:49> ROS ED ROS Narrative Constitutional: Negative for fever, chills, weight loss, weakness Eyes: Negative for vision loss, vision change, double vision ENT: Negative for any sore throat, ear pain, congestion Cardiovascular: Negative for any chest pain, tightness, palpitations Respiratory: Negative for any cough, sputum production, hemoptysis, dyspnea, dyspnea on exertion, orthopnea Gastrointestinal: Negative for any abdominal pain, nausea, vomiting, diarrhea, constipation, blood in stool, blood in vomit : Negative for any urinary frequency, dysuria, retention, blood in urine Muscle skeletal: Negative for any myalgias, arthralgias, neck pain, back pain. Positive right hip pain Neurological: Negative for any headache, syncope, paresthesias, dizziness Skin: Negative for any rashes, lumps, itching, abrasions, lacerations Psychiatric: Negative for any depression, anxiety, stress, suicidal ideation, homicidal ideation Hematologic: Negative for any easy bruising, excessive bruising, easy bleeding Allergies: Negative for any eczema, hives, rash EXAM <ZEN Coburn - Last Filed: 04/25/23 15:49> Physical Exam Narrative Exam Narrative: Vital signs reviewed. HEET: Head normocephalic atraumatic, TMs clear bilaterally. Posterior pharynx is clear, moist mucous membranes. Nares clear bilaterally. Pupils are equal round reactive to light, negative for hemotympanum, negative for any septal hematoma. Neck: Supple with no lymphadenopathy or tenderness. No signs of meningismus. Cardiac: Regular rate and rhythm no murmurs gallops or rubs, equal peripheral pulses bilaterally. Respiratory: Lungs clear to auscultation bilaterally. No chest tenderness. Abdomen: Soft, nontender, nondistended. No abdominal bruit or pulsatile masses. No hepatosplenomegaly Extremities: Patient has no internal rotation, no shortening however patient does have increased pain with any sort of flexion. Positive logroll pain. +2 pedal pulse. Neuro: Cranial nerves II through XII intact, no focal neurological deficits. Skin: Clean dry and intact with no rash, purpura, petechiae, vesicles or pustules. Backs/flank: No CVA tenderness, no midline spinal tenderness, no deformity. Psych: Normal mood and affect. No SI, HI or acute psychosis. Const Vital Signs: 04/25/23 12:26 04/25/23 15:00 Temperature 97.4 F L Temperature Source Temporal Pulse Rate 102 H 90 Respiratory Rate 16 16 Blood Pressure 165/123 H 154/84 H Blood Pressure Mean 137 107 Pulse Ox 97 97 Oxygen Delivery Method Room Air Room Air <Dr. Wilber De La Vega DO - Last Filed: 04/25/23 16:00> Physical Exam Const Vital Signs: 04/25/23 12:26 04/25/23 15:00 Temperature 97.4 F L Temperature Source Temporal Pulse Rate 102 H 90 Respiratory Rate 16 16 Blood Pressure 165/123 H 154/84 H Blood Pressure Mean 137 107 Pulse Ox 97 97 Oxygen Delivery Method Room Air Room Air MDM <MIGDALIA CoburnC - Last Filed: 04/25/23 15:49> [facility] Lab Data Labs: Laboratory Results - last 24 hr 04/25/23 13:07 WBC 11.2 H RBC 4.19 L Hgb 11.3 L Hct 36.4 L MCV 86.9 MCH 27.0 MCHC 31.0 L RDW Std Deviation 45.1 H RDW Coeff of Marta 14.1 Plt Count 261 MPV 9.1 Immature Gran % (Auto) 0.500 Neut % (Auto) 75.6 H Lymph % (Auto) 11.4 L [place]oup % (Auto) 11.4 H Eos % (Auto) 0.9 Baso % (Auto) 0.2 Absolute Neuts (auto) 8.5 H Absolute Lymphs (auto) 1.27 Nucleated RBC % 0 PT 13.9 INR 1.1 Sodium 134 L Potassium 3.4 L Chloride 104 Carbon Dioxide 24.0 Anion Gap 6 BUN 15 Creatinine 1.12 Est GFR (MDRD) Af Amer 81 Est GFR (MDRD) Non-Af 67 BUN/Creatinine Ratio 13.4 Glucose 172 H Calcium 9.3 Radiography Diagnostic Testing: Clinical Impression(s) from Imaging Studies Chest X-Ray 04/25/23 12:42 IMPRESSION: Mild cardiomegaly. Linear atelectasis and/or scarring at the right lung base. Electronically Signed: Jules Vo MD at 13:52 EST , Femur X-Ray 04/25/23 12:42 IMPRESSION: No acute fracture is seen. Status post right knee replacement. Electronically Signed: Jules Vo MD at 13:55 EST , Pelvis X-Ray 04/25/23 12:42 IMPRESSION: Degenerative changes of both hip joints. No fracture is seen. Electronically Signed: Jules Vo MD at 13:56 EST , EKG EKG shows sinus tachycardia: Attestation: I personally reviewed and interpreted this EKG as follows: Comments: EKG shows sinus tachycardia, rate 101 bpm, no acute ST elevation, no acute infarct noted Treatment and Re-Evaluation :: Patient appears generally well, patient appears nontoxic, vital signs are stable. Presenting to the emergency department with concerns of right hip fracture. Patient did have suspicious x-rays outpatient. This is from a fall that occurred 4 days ago. Patient's differential diagnosis includes right hip fracture, femur fracture, pelvic fracture, muscle strain. Patient will receive x-rays of the right hip to include the pelvis as well as the right femur. Basic laboratory values will be completed concerning for any surgical intervention. All radiologic examinations were read, reviewed by the emergency department attending. From these reads, a plan of care will be put in place. Chest x-ray showed no acute process. Patient's hip shows no acute fracture seen, no pelvis fracture. Patient's laboratory values show slight increase in white blood count 11.2. Patient's chemistries unremarkable, glucose 172. Secondary to the x-rays being negative. Patient was given IV fentanyl, Zofran. Patient was able to walk with a walker. He did well. He still had some pain. Patient be given 1 more Percocet before discharge as well as a prescription for home. Patient was given strict return precaution to return here if the pain gets worse, he may need further imaging. However the patient still able to walk, I have low suspicion of a fracture. I spoke with the patient, the patient's daughter all questions answered stable for discharge. <Dr. Wilber De La Vega, DO - Last Filed: 04/25/23 16:00> [facility] Narrative Medical decision making narrative: I have personally performed a face to face assessment of the patient and have reviewed the ADWOA Note. I performed a substantive portion of the visit including all aspects of the following. My leary findings include: History: Patient presents with right hip pain that began after a fall 4 days ago. Patient states that his pain is mainly over his right hip. Patient states his pain is worse with any weightbearing. Patient states that while he is sitting he does not have any pain. Patient states that when he stands after his pain becomes very sharp. Patient denies any paresthesias or weakness. Patient denies any head injury or loss of consciousness. Patient went to the [facility] urgent care today where he had x-rays. Patient states he was told he had a fracture in his hip. Patient was then referred to the emergency department. Exam: Vital signs are stable except for mildly elevated blood pressure of 165/123. Patient is afebrile. Patient is in no acute distress. Oral mucosa is pink and moist. Neck is supple. Trachea is midline. There is no JVD. Heart was regular rate and rhythm. Lungs are clear and equal bilateral. Abdomen is soft. Bowel sounds are normal. There is no tenderness. Musculoskeletal exam revealed tenderness over the right hip. There is no deformity noted. Range of motion was limited in all motions of the right hip secondary to pain. Pedal pulses are equal bilateral. Sensation was intact to light touch bilaterally in the lower extremities. Strength is 5/5 bilaterally in the lower extremities. Medical Decision Making: Differential diagnosis includes hip fracture, dislocation, and contusion. X-rays of the left hip will be obtained to assess for hip fracture. Medical screening labs will be obtained. CBC will be obtained to assess for leukocytosis and anemia. Basic metabolic profile will be obtained to assess for electrolyte abnormality and renal function. PT was INR will be obtained to assess for coagulopathy. EKG will be obtained to assess for cardiac dysrhythmia and cardiac ischemia. Chest x-ray will be obtained to assess for pneumonia and congestive heart failure. X-rays of the right hip will be obtained to assess for hip fracture. X-rays of the right femur will be obtained to assess for femur fracture. EKG was obtained. On my independent interpretation, it shows sinus rhythm with a rate of 101. There is occasional PAC noted. NC interval was normal at 180 ms. QRS interval was normal at 92 ms. QTc interval was normal at 497 ms. [place] was normal. There are no acute ST or T wave changes noted. CBC was reviewed. There is a slight leukocytosis of 11.2. Hemoglobin was 11.3 hematocrit was 36.4. Platelets were normal. Basic metabolic profile was reviewed. Potassium was slightly low at 3.4. Sodium was 134. Glucose was slightly elevated at 172. The remainder was essentially within normal limits. PT with INR was reviewed and was within normal limits. Portable 1 view chest x-ray was obtained. On my independent interpretation, lung yeh are clear. There is normal cardiac silhouette. Bony thorax is normal. There is no acute process noted. Radiologist also interpreted the x-ray and agrees. X-rays of the pelvis were obtained. There is 1 view. On my independent interpretation, there is no acute fracture. There is no dislocation noted. There are no degenerative changes noted. X-rays of the right femur were obtained. There are 4 views. On my independent interpretation, there is no acute fracture or dislocation noted. There is no loosening of the prosthesis of the total knee replacement. Radiologist also interpreted the x-rays and agrees. Patient was given a dose of fentanyl here. Patient was also given a dose of oxycodone and Zofran. Patient was able to ambulate after this. Patient was advised of his findings. Patient was instructed to use ice to the area. Patient was given a prescription for Percocet. Patient was instructed to return if worse in any way. Patient understood and was agreeable with the plan. All questions were answered. Lab Data Labs: Laboratory Results - last 24 hr 04/25/23 13:07 WBC 11.2 H RBC 4.19 L Hgb 11.3 L Hct 36.4 L MCV 86.9 MCH 27.0 MCHC 31.0 L RDW Std Deviation 45.1 H RDW Coeff of Marta 14.1 Plt Count 261 MPV 9.1 Immature Gran % (Auto) 0.500 Neut % (Auto) 75.6 H Lymph % (Auto) 11.4 L Troup % (Auto) 11.4 H Eos % (Auto) 0.9 Baso % (Auto) 0.2 Absolute Neuts (auto) 8.5 H Absolute Lymphs (auto) 1.27 Nucleated RBC % 0 PT 13.9 INR 1.1 Sodium 134 L Potassium 3.4 L Chloride 104 Carbon Dioxide 24.0 Anion Gap 6 BUN 15 Creatinine 1.12 Est GFR (MDRD) Af Amer 81 Est GFR (MDRD) Non-Af 67 BUN/Creatinine Ratio 13.4 Glucose 172 H Calcium 9.3 Radiography Diagnostic Testing: Clinical Impression(s) from Imaging Studies Chest X-Ray 04/25/23 12:42 IMPRESSION: Mild cardiomegaly. Linear atelectasis and/or scarring at the right lung base. Electronically Signed: Jules Vo MD at 13:52 EST , Femur X-Ray 04/25/23 12:42 IMPRESSION: No acute fracture is seen. Status post right knee replacement. Electronically Signed: Jules Vo MD at 13:55 EST , Pelvis X-Ray 04/25/23 12:42 IMPRESSION: Degenerative changes of both hip joints. No fracture is seen. Electronically Signed: Jules Vo MD at 13:56 EST , Discharge Plan Triage Chief Complaint: Lower Extremity Injury ED Midlevel Provider: Abdirizak Garcia ED Provider: Wilber De La Vega Dx/Rx/DC Orders Clinical Impression: Contusion of hip, Fall Instructions: Bruises (Contusions), Bone Contusion Prescriptions: New oxycodone-acetaminophen [Percocet] 5-325 mg tablet 1 tab PO Q8H PRN (Reason: pain) 3 Days Qty: 10 0RF ondansetron 4 mg tablet,disintegrating 4 mg PO Q8H PRN PRN (Reason: Nausea) Qty: 10 0RF No Action potassium chloride 20 mEq tablet extended release 20 meq PO BID furosemide 20 mg tablet 20 mg PO DAILY atorvastatin 40 mg tablet 40 mg PO DAILY Patient Comments: TAKE 1 TABLET BY MOUTH ONCE DAILY losartan 50 mg tablet 50 mg PO DAILY metoprolol succinate 50 mg tablet extended release 24 hr 50 mg PO DAILY albuterol sulfate 90 mcg/actuation HFA aerosol inhaler 2 puff inhalation Q6H PRN (Reason: shortness of breath or wheezing) omeprazole 20 mg capsule,delayed release(DR/EC) 20 mg PO DAILY acidophilus-pectin, citrus 1 TABLET tablet 1 tab PO DAILY Patient Comments: probiotic tamsulosin 0.4 mg capsule 0.4 mg PO BID finasteride 5 mg tablet 5 mg PO DAILY abiraterone 250 mg tablet 1,000 mg PO QHS Centrum Silver 0.4 mg-300 mcg- 250 mcg Tablet 1 tab PO DAILY cholecalciferol (vitamin D3) [Vitamin D3] 125 mcg (5,000 unit) Tablet 125 mcg PO DAILY cephalexin 500 mg capsule 500 mg PO Q8H Qty: 30 0RF cephalexin 500 mg capsule 500 mg PO TID Qty: 21 0RF Primary Care Provider: Darrin Ramirez Referrals: Darrin Ramirez MD [Primary Care Provider] - Activity Restrictions/Additional Instructions: If in 48 hours, you are still in significant mount of pain, it is causing problems with your lifestyle. Then you need to follow-up here and receive further imaging on your right hip. Disposition Disposition: Home, Self Care
[2023-04-25 13:15] LABS: Absolute Lymphocyte Count 1.27 X10^3/uL (0.83-4.51); Absolute Neutrophil Count 8.5 X10^3/uL (2.0-7.7); Basophil# 0.02 X10^3/uL; Basophil% 0.2 % (0-1); Eosinophils% 0.9 % (0-5); Hematocrit 36.4 % (40-54); Hemoglobin 11.3 g/dL (13.0-16.5); Lymphocyte # 1.27 X10^3/ul (0.83-4.51); Lymphocyte % 11.4 % (19-41); Mean Corpuscular Volume 86.9 fL (80-94); Mean Platelet Vol. 9.1 fl (6.2-12.0); Monocyte# 1.28 X10^3/uL; Monocyte% 11.4 % (0-10); NRBC Flagged by Analyzer 0 % (0-5); Neutrophil # 8.45 X10^3/uL (2.7-7.7); Neutrophil % 75.6 % (47-70); Platelet Count 261 K/mm3 (150-450); RBC Distribution Width CV 14.1 % (11.6-14.6); RBC Distribution Width SD 45.1 fl (35.1-43.9); Red Blood Count 4.19 M/mm3 (4.6-6.2); White Blood Count 11.2 K/mm3 (4.4-11.0)
[2023-04-25 13:26] LABS: International Normalized Ratio 1.1; Prothrombin Time (Protime)PT. 13.9 SECONDS (11.7-14.9)
[2023-04-25 13:28] LABS: Anion Gap 6 (5-15); BUN 15 mg/dL (7-18); BUN/Creat Ratio 13.4 RATIO (10-20); Calcium,Total 9.3 mg/dL (8.5-10.1); Chloride 104 mmol/L (98-107); Creatinine, Serum 1.12 mg/dL (0.70-1.30); EST Glomerular Filtration Rate 67 mL/min (>60); Est Glom Filt Rate - Afr Amer 81 mL/min (>60); Glucose 172 mg/dL (74-106); Potassium 3.4 mmol/L (3.5-5.1); Sodium Level 134 mmol/L (136-145)
[2023-04-25] MEDS: Ondansetron 4 MG/2 ML Vial IV (14:56)
[2023-04-25] MEDS: fentaNYL 100 MCG/2 ML Ampul 50 MCG IV (14:56)
[2023-04-25 14:59] VITALS: BMI 36.1
[2023-04-25 15:00] VITALS: BP 154/84; PULSE 90; RESP 16; O2SAT 97
[2023-04-25] MEDS: Oxycodone/Apap 5/325 Tablet PO (15:54)
[2023-04-25 16:06] VITALS: BP 154/84; PULSE 90; RESP 16; O2SAT 97
== END 2023-04-25 16:07 | disposition home or self-care (01) ==
PROVIDERS: Nurse Practitioner; Emergency Provider Emergency Medicine; PCP Family Medicine; Visit Provider Emergency Medicine
DX: S70.01XA Contusion of right hip, initial encounter (principal); E78.5 Hyperlipidemia, unspecified; I10 Essential (primary) hypertension; Z85.46 Personal history of malignant neoplasm of prostate; W19.XXXA Unspecified fall, initial encounter; N40.0 Benign prostatic hyperplasia without lower urinary tract symptoms; K21.9 Gastro-esophageal reflux disease without esophagitis; Z79.899 Other long term (current) drug therapy; Z96.652 Presence of left artificial knee joint; Z95.2 Presence of prosthetic heart valve
CPT/HCPCS: 71045; 72170; 73552; 80048; 85025; 85610; 93005; 96374; 96375; 99283; A4216; J2405

== ENCOUNTER 2023-04-27 12:11 | Emergency (ER) | payer MEDICARE, SELFPAY ==
[2023-04-27 12:11] VITALS: BP 151/80; PULSE 97; RESP 16; TEMP 36.5; O2SAT 97
[2023-04-27 12:21] VITALS: BMI 36.5
--- NOTE | 2023-04-27 12:37 | CT_ITS ---
CT RIGHT LOWER EXTREMITY WITH 3-D IMAGING CLINICAL INDICATION: fall w/ right hip pain. Normal x-rays last week TECHNIQUE: Axial CT images of the RIGHT lower extremity was performed without IV contrast material. Coronal and sagittal reformats were provided. RADIATION DOSAGE (If Supplied By Facility): CTDIvol = ( 28.00 ) mGy, DLP = ( 1080.03 ) mGycm COMPARISON: Prior study dated: April 25, 2023. FINDINGS: Bones: Osseous structures are normal without evidence of fracture or dislocation. No lytic or blastic osseous masses. Soft Tissues: Nonobstructive calculi are seen in the lower pole calyces of the right kidney. A Lockwood catheter is seen within a decompressed urinary bladder. Diffuse bladder wall thickening. Small right inguinal hernia containing fat. The superficial soft tissues are unremarkable without evidence of edema, hematoma, or foreign body. CT/Extremity Lower without Contra IMPRESSION: Normal CT evaluation of the lower extremity without evidence of fracture, dislocation, or significant soft tissue abnormality. Electronically Signed: Jules Vo MD at 13:42 EST ,
--- NOTE | 2023-04-27 12:40 | EDS_ITS ---
HPI History of Present Illness HPI Narrative: 82-year-old male bilateral prior knee replacements. Tripped and fell going in his garage last Monday about a week ago. At that time was evaluated and had negative x-rays but has had continued right hip pain and difficulty walking. He was instructed to return if he was not improving to have a CAT scan of his hip. Denies any other significant injuries. Chief Complaint: Lower Extremity Injury Informant: patient Occured/Mechanism Mechanism/Context: Yes injury and Yes blunt trauma Onset/Context/Timing Onset: Weeks Context: Sudden Onset Timing: Continuous Quality of Pain: Sharp and Aching Current Severity: Mild Maximum Severity: Moderate Associated Symptoms Associated Symptoms: Negative for Parasthesia, Weakness or Loss of Funtion Narrative Prior similar symptoms: No Recent Illness/Hospitalization: No PFSH PFSH Medical History Abnormal electrocardiogram Ambulates with cane Anemia Aortic stenosis Arthritis Back pain BPH (benign prostatic hyperplasia) Cardiology follow-up encounter Chronic back pain Depression Diverticulosis Easy bruising Essential hypertension Gastric reflux GERD (gastroesophageal reflux disease) History of echocardiogram History of edema History of steroid therapy Hyperlipidemia Hypertension Inguinal hernia Leg cramps Loss of hearing Lung nodule Multiple premature ventricular complexes Non-smoker Nonrheumatic aortic (valve) stenosis Obesity Osteoarthritis Prostate cancer metastatic to bone Prostate disease Restless legs Wears glasses Wears hearing aid Home Medications acidophilus 25 million cell-pectin, citrus 100 mg tablet 1 tab PO DAILY probiotic 03/12/14 [History Last Taken 04/10/22] finasteride 5 mg tablet 5 mg PO DAILY BPH 03/21/22 [History Last Taken 04/10/22] cholecalciferol (vitamin D3) 125 mcg (5,000 unit) tablet (Vitamin D3) 125 mcg PO DAILY supplement 04/10/22 [History Last Taken 04/10/22] tjhkwhil-afh-mouwo acid 0.4 mg-lycopene 300 mcg-lutein 250 mcg tablet (Centrum Silver) 1 tab PO DAILY supplement 04/10/22 [History Last Taken 04/10/22] potassium chloride 20 mEq tablet,extended release 20 meq PO BID 06/21/22 [History Last Taken Unknown] albuterol sulfate 90 mcg/actuation aerosol inhaler 2 puff inhalation Q6H PRN shortness of breath or wheezing 10/12/22 [History Last Taken Unknown] metoprolol succinate 50 mg tablet,extended release 24 hr 50 mg PO DAILY 10/12/22 [History Last Taken Unknown] omeprazole 20 mg capsule,delayed release 20 mg PO DAILY 10/12/22 [History Last Taken Unknown] tamsulosin 0.4 mg capsule 0.4 mg PO BID BPH 10/12/22 [History Last Taken Unknown] ondansetron 4 mg disintegrating tablet 4 mg PO Q8H PRN PRN Nausea #10 tabs 04/25/23 [Rx Last Taken Unknown] oxycodone-acetaminophen 5 mg-325 mg tablet (Percocet) 1 tab PO Q8H PRN pain 3 d ays #10 tabs 04/25/23 [Rx Last Taken Unknown] oxycodone-acetaminophen 5 mg-325 mg tablet (Percocet) 1 tab PO Q8H PRN pain 7 days #15 tabs 04/27/23 [Rx Last Taken Unknown] Allergy/AdvReac Type Severity Reaction Status Date / Time No Known Allergies Allergy Verified 04/27/23 12:13 Family History Father Heart disease Surgical History Amputated toe History of carpal tunnel release History of cystoscopy History of inguinal hernia repair History of left knee replacement History of total knee arthroplasty History of transcatheter aortic valve replacement (TAVR) (~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 Hip pain post fall. Review of Systems ROS Unobtainable: Denies due to encephalopathy Constitutional Constitutional ED: Denies chills or fever(s) Eyes Eyes: Denies blurry vision Cardiovascular Cardiovascular: Denies chest pain or palpitations Respiratory/Chest Respiratory/Chest: Denies cough or dyspnea Gastrointestinal Gastrointestinal: Denies abdominal pain, constipation, diarrhea, nausea or vomiting Genitourinary Genitourinary ED: Denies dysuria or hematuria Musculoskeletal Musculoskeletal: Denies arthralgias or back pain Integumentary Denies abscess or Abrasions Neurologic Neurologic: Denies headache(s) Psychiatric Psychiatric: Denies anxiety or depression Endocrine Endocrinology: Denies polydipsia, polyphagia or polyuria Hematologic/Lymphatic Hematologic/Lymphatic: Denies easy bleeding, easy bruising or lymphadenopathy Allergic/Immunologic Allergic/Immunologic ED: Denies mouth swelling, tongue swelling or urticaria EXAM Physical Exam Narrative Exam Narrative: 82-year-old male vital signs stable afebrile. In no distress sitting in bed. Family at bedside. H EENT exam unremarkable atraumatic nontender. Pupils round react to light. Scalp nontender. C-spine nontender. Back nontender. Lungs clear to auscultation. Heart regular rhythm. Chest wall and ribs nontender. Abdomen soft nontender. Pelvic girdle intact. Tenderness right hip. No obvious bruising. No deformity. He is able to flex and extend the right hip but he does have discomfort with DuoNeb. There is no shortening or rotation. Left hip bilateral knees bilateral ankles are nontender. Dorsi plantarflexion intact. Neurologically is awake and alert with no focal motor deficits. Const Vital Signs: 04/27/23 12:11 Temperature 97.7 F L Temperature Source Temporal Pulse Rate 97 Respiratory Rate 16 Blood Pressure 151/80 H Blood Pressure Mean 103 Pulse Ox 97 Oxygen Delivery Method Room Air Positive well nourished and well developed; Negative for cachectic, contractures or unkempt General Appearance ED: well developed and NAD; Negative for unkempt, cachectic or contractures Nutritional Appearance: Negative for cachectic HEENT Reports moist mucous membranes normocephalic and atraumatic; Negative for trauma or tenderness Eyes PERRL General Eye ED: Negative for other Neck full ROM and supple Thyroid: Negative for tender Lymph Lymphatic: Negative for other Chest Wall inspection of chest normal and palpation of chest normal Chest: Negative for other Resp normal respiratory effort, no retractions and clear to auscultation bilaterally Effort and Inspection: Negative for pain with movement Auscultation: Negative for rales, rhonchi or wheezes Cardio regular rate, regular rhythm, S1 normal heart sound, S2 normal heart sound and no murmurs Rate: Negative for bradycardia or tachycardic Rhythm: Negative for abnormal rhythm Bruits: Negative for other GI non-tender, non-distended and no masses Inspection: Negative for abdominal distention Auscultation: normoactive bowel sounds Palpation: soft; Negative for tender, guarding or rebound tenderness present Back/Spine no CVA tenderness General Back: Negative for CVA tenderness Cervical Spine: Negative for cervical spine tenderness Thoracic Spine / Upper Back: Negative for thoracic spinal tenderness Lumbar Spine / Lower Back: Negative for lumbar spinal tenderness Extremity normal to inspection and full ROM Extremity Narrative: Except tenderness right hip. Pain with active range of motion. General Extremety ED: Negative for cyanosis or edema General Extremity: Negative for cyanosis or edema Neuro oriented x3, CN's II-XII intact bilaterally and moves all extremities Sensorium / Orientation: alert, oriented to person, oriented to place and oriented to time; Negative for orientation impaired, confused, lethargic or stuporous Motor Exam: strength 5/5 throughout Psych mental status grossly normal Appearance: Negative for unkempt Speech: No other Mood & Affect: Negative for anxious Skin no wounds Lesions: no lesions Rashes: no rashes Trauma: Negative for abrasion or laceration MDM MDM MDM Narrative Medical decision making narrative: 82-year-old male fell a week ago had negative x-rays of his right hip, pelvis and femur. Having continued pain and difficulty ambulating CAT scan will be obtained. Repeat exam patient is doing well at 2:30 PM. I talked to both he and his and other family member they are comfortable with him being discharged home. He already has established relationship with [facility] and then his prior knee replacements if his hip is not improving in the next 1 to 2 weeks he will follow-up with them. I will write him for additional Percocet for pain. History & Record Review Discussion w/independent historian: Patient Radiography Diagnostic Testing: Clinical Impression(s) from Imaging Studies Lower Extremity CT 04/27/23 12:37 IMPRESSION: Normal CT evaluation of the lower extremity without evidence of fracture, dislocation, or significant soft tissue abnormality. Electronically Signed: Jules Vo MD at 13:42 EST , Discharge Plan Triage Chief Complaint: Lower Extremity Injury ED Provider: Luis Perez Dx/Rx/DC Orders Clinical Impression: Fall, Contusion of right hip Instructions: ED Hip Contusion Prescriptions: New oxycodone-acetaminophen [Percocet] 5-325 mg tablet 1 tab PO Q8H PRN (Reason: pain) 7 Days Qty: 15 0RF No Action potassium chloride 20 mEq tablet extended release 20 meq PO BID metoprolol succinate 50 mg tablet extended release 24 hr 50 mg PO DAILY albuterol sulfate 90 mcg/actuation HFA aerosol inhaler 2 puff inhalation Q6H PRN (Reason: shortness of breath or wheezing) omeprazole 20 mg capsule,delayed release(DR/EC) 20 mg PO DAILY acidophilus-pectin, citrus 1 TABLET tablet 1 tab PO DAILY Patient Comments: probiotic tamsulosin 0.4 mg capsule 0.4 mg PO BID finasteride 5 mg tablet 5 mg PO DAILY Centrum Silver 0.4 mg-300 mcg- 250 mcg Tablet 1 tab PO DAILY cholecalciferol (vitamin D3) [Vitamin D3] 125 mcg (5,000 unit) Tablet 125 mcg PO DAILY oxycodone-acetaminophen [Percocet] 5-325 mg tablet 1 tab PO Q8H PRN (Reason: pain) 3 Days Qty: 10 0RF ondansetron 4 mg tablet,disintegrating 4 mg PO Q8H PRN PRN (Reason: Nausea) Qty: 10 0RF Primary Care Provider: Darrin Ramirez Referrals: Darrin Ramirez MD [Primary Care Provider] - Ronny Jerome MD [Med Staff - Active Staff] - 10-14 Days if not better Activity Restrictions/Additional Instructions: Ice to your hip. CAT scan was unremarkable today. There is no signs of any broken bones. Percocet for pain. Plenty of fluids and fiber to prevent constipation. Do not drive if using the Percocet. Call and follow-up with [facility] to have your hip reevaluated if not improving in 1 to 2 weeks. Disposition Disposition: Home, Self Care
[2023-04-27 14:43] VITALS: PULSE 68; O2SAT 98
== END 2023-04-27 14:44 | disposition home or self-care (01) ==
PROVIDERS: Emergency Provider Emergency Medicine; PCP Family Medicine; Visit Provider Emergency Medicine
DX: S70.01XA Contusion of right hip, initial encounter (principal); W01.0XXA Fall on same level from slipping, tripping and stumbling without subsequent striking against object, initial encounter; Y92.008 Other place in unspecified non-institutional (private) residence as the place of occurrence of the external cause; I10 Essential (primary) hypertension; Z96.653 Presence of artificial knee joint, bilateral; Z79.899 Other long term (current) drug therapy
CPT/HCPCS: 99282; 73700

== ENCOUNTER 2023-04-28 22:04 | Inpatient (IN) | payer MEDICARE, SELFPAY ==
[2023-04-28 22:07] VITALS: BP 139/73; PULSE 108; RESP 27; TEMP 36.9; O2SAT 94; BMI 36.8
[2023-04-28 22:13] VITALS: BP 139/73; PULSE 107; RESP 21; TEMP 36.9; O2SAT 95
--- NOTE | 2023-04-28 22:18 | EX.ED.DYSGE1 ---
HPI History of Present Illness Chief Complaint: Weakness Informant: patient Onset/Context/Timing Onset: Weeks Context: Gradual Onset Timing: Continuous Quality: Tired, weak Location: Generalized Worsened by: Nothing Relieved by: Nothing Narrative Narrative: Patient presents with fatigue and weakness that has been getting worse over the past week. Patient states he feels tired and weak. Patient states it came on gradually. Patient states nothing makes it better nothing makes it worse. Patient is a poor informant. Patient is somewhat confused on exam. Patient thinks he is in pain management instead of the emergency department. Patient states the year is 3. Patient denies any fevers or chills. Patient denies any chest pain or shortness of breath. [facility] Medical History Abnormal electrocardiogram Ambulates with cane Anemia Aortic stenosis Arthritis Back pain BPH (benign prostatic hyperplasia) Cardiology follow-up encounter Chronic back pain Depression Diverticulosis Easy bruising Essential hypertension Gastric reflux GERD (gastroesophageal reflux disease) History of echocardiogram History of edema History of steroid therapy Hyperlipidemia Hypertension Inguinal hernia Leg cramps Loss of hearing Lung nodule Multiple premature ventricular complexes Non-smoker Nonrheumatic aortic (valve) stenosis Obesity Osteoarthritis Prostate cancer metastatic to bone Prostate disease Restless legs Wears glasses Wears hearing aid Home Medications acidophilus 25 million cell-pectin, citrus 100 mg tablet 1 tab PO DAILY probiotic 03/12/14 [History Last Taken 04/10/22] finasteride 5 mg tablet 5 mg PO DAILY BPH 03/21/22 [History Last Taken 04/10/22] cholecalciferol (vitamin D3) 125 mcg (5,000 unit) tablet (Vitamin D3) 125 mcg PO DAILY supplement 04/10/22 [History Last Taken 04/10/22] twmeyugu-acl-qacru acid 0.4 mg-lycopene 300 mcg-lutein 250 mcg tablet (Centrum Silver) 1 tab PO DAILY supplement 04/10/22 [History Last Taken 04/10/22] potassium chloride 20 mEq tablet,extended release 20 meq PO BID 06/21/22 [History Last Taken Unknown] albuterol sulfate 90 mcg/actuation aerosol inhaler 2 puff inhalation Q6H PRN shortness of breath or wheezing 10/12/22 [History Last Taken Unknown] metoprolol succinate 50 mg tablet,extended release 24 hr 50 mg PO DAILY 10/12/22 [History Last Taken Unknown] omeprazole 20 mg capsule,delayed release 20 mg PO DAILY 10/12/22 [History Last Taken Unknown] tamsulosin 0.4 mg capsule 0.4 mg PO DAILY BPH 10/12/22 [History Last Taken Unknown] ondansetron 4 mg disintegrating tablet 4 mg PO Q8H PRN PRN Nausea #10 tabs 04/25/23 [Rx Last Taken Unknown] oxycodone-acetaminophen 5 mg-325 mg tablet (Percocet) 1 tab PO Q8H PRN pain 7 days #15 tabs 04/27/23 [Rx Last Taken Unknown] Allergy/AdvReac Type Severity Reaction Status Date / Time No Known Allergies Allergy Verified 04/27/23 12:13 Family History Father Heart disease Surgical History Amputated toe History of carpal tunnel release History of cystoscopy History of inguinal hernia repair History of left knee replacement History of total knee arthroplasty History of transcatheter aortic valve replacement (TAVR) (~09/26/22) Social History household members: spouse Smoking Status: Never smoker substance use type: does not use ROS ROS ED Constitutional Constitutional ED: Denies chills or fever(s) Eyes Eyes: Denies blurry vision or change in vision ENT ENT ED: Denies rhinorrhea or sore throat Cardiovascular Cardiovascular: Denies chest pain or palpitations Respiratory/Chest Respiratory/Chest: Denies cough or dyspnea Gastrointestinal Gastrointestinal: Denies nausea or vomiting Genitourinary Genitourinary ED: Denies dysuria or hematuria Musculoskeletal Musculoskeletal: Denies back pain or neck pain Integumentary Denies abscess or rash Neurologic Neurologic: Reports weakness; Denies headache(s) Allergic/Immunologic Allergic/Immunologic ED: Denies mouth swelling or urticaria EXAM Physical Exam Const Vital Signs: 04/28/23 22:07 04/28/23 22:13 04/28/23 22:13 Temperature 98.4 F 98.4 F Temperature Source Temporal Temporal Pulse Rate 108 H 107 H Respiratory Rate 27 H 21 H Respiratory Pattern Normal Blood Pressure 139/73 H 139/73 H Blood Pressure Mean 95 95 Pulse Ox 94 95 Oxygen Delivery Method Room Air Room Air Oxygen Flow Rate (L/min) 04/28/23 23:00 04/28/23 23:26 04/28/23 23:30 Temperature 101.0 F H 101.0 F H Temperature Source Oral Oral Pulse Rate 110 H 112 H Respiratory Rate 28 H 26 H Respiratory Pattern Blood Pressure 136/89 H 131/80 H Blood Pressure Mean 104 97 Pulse Ox 88 91 92 Oxygen Delivery Method Room Air Nasal Cannula Nasal Cannula Oxygen Flow Rate (L/min) 2 2 Positive well nourished and well developed General Appearance ED: well developed and NAD HEENT Reports moist mucous membranes Neck supple and no JVD Resp normal respiratory effort and clear to auscultation bilaterally Cardio regular rate and regular rhythm GI non-tender and non-distended Palpation: soft Extremity normal to inspection General Extremety ED: Negative for edema or tenderness General Extremity: Negative for edema Neuro CN's II-XII intact bilaterally and no sensory deficits noted Sensorium / Orientation: alert and orientation impaired Motor Exam: general weakness MDM MDM MDM Narrative Medical decision making narrative: Differential diagnosis includes urinary tract infection, stroke, intracranial bleeding, cardiac dysrhythmia, cardiac ischemia, pneumonia, COVID-19, influenza, viral illness, and sepsis. CT scan of the brain will be obtained to assess for intracranial bleeding and stroke. Chest x-ray will be obtained to assess for pneumonia pneumothorax. EKG will be obtained to assess for cardiac dysrhythmia and cardiac ischemia. CBC will be obtained to assess for leukocytosis and anemia. Comprehensive metabolic profile will be obtained to assess for hepatic function, renal function, and electrolyte abnormality. High-sensitivity troponin will be obtained to assess for cardiac ischemia. Serum lactate will be obtained to assess for sepsis. Urinalysis will be obtained to assess for urinary tract infection. Blood cultures will be obtained to assess for sepsis. Urine culture will be obtained to assess for urinary tract infection. History & Record Review Additional record(s) reviewed:: Prior labs Lab Data Attestation: I reviewed the patient's lab results. Lab results narrative: CBC was reviewed. There is a leukocytosis of 15.2. Hemoglobin was 10.0 and hematocrit was 31.6. Platelets were normal. Comprehensive metabolic profile was reviewed. BUN was 22 and creatinine was 1.46. These are slightly increased from previous results. Sodium was slightly low at 130. Chloride was 96. The remainder was essentially within normal limits. PT with INR and PTT were reviewed. Pro time was 15.8 and INR is 1.3. PTT was 29.8. Urinalysis was reviewed. There is cloudy yellow urine with a specific gravity 1.015. Leukocyte esterase was 500 with positive nitrites. There were greater than 100 white blood cells seen. There is 3+ bacteria. Occult blood was 250 with 5-10 red blood cells. Labs: Laboratory Results - last 24 hr 04/28/23 04/28/23 22:35 23:20 WBC 15.2 H RBC 3.65 L Hgb 10.0 L Hct 31.6 L MCV 86.6 MCH 27.4 MCHC 31.6 L RDW Std Deviation 45.9 H RDW Coeff of Marta 14.3 Plt Count 253 MPV 9.5 Immature Gran % (Auto) 0.700 Neut % (Auto) 85.8 H Lymph % (Auto) 5.7 L Knott % (Auto) 7.5 Eos % (Auto) 0.0 Baso % (Auto) 0.3 Absolute Neuts (auto) 13.0 H Absolute Lymphs (auto) 0.87 Nucleated RBC % 0 PT 15.8 H INR 1.3 APTT 29.8 Sodium 130 L Potassium 4.0 Chloride 96 L Carbon Dioxide 28.0 Anion Gap 6 BUN 22 H Creatinine 1.46 H Estim Creat Clear Calc 39.58 Est GFR (MDRD) Af Amer 59 L Est GFR (MDRD) Non-Af 49 L BUN/Creatinine Ratio 15.1 Glucose 152 H Lactic Acid 1.5 Calcium 9.1 Total Bilirubin 1.00 AST 31 ALT 21 Alkaline Phosphatase 82 Total Protein 8.9 H Albumin 2.7 L Globulin 6.2 H Albumin/Globulin Ratio 0.4 L Urine Color Yellow Urine Clarity Cloudy Urine pH 6.0 Ur Specific [place] 1.015 Urine Protein 100 H Urine Glucose (UA) Normal Urine Ketones Negative Urine Occult Blood 250 H Urine Nitrite Positive H Urine Bilirubin Negative Urine Urobilinogen Normal Ur Leukocyte Esterase 500 H Urine RBC 5-10 SEEN Urine WBC >100 SEEN Ur Squamous Epith Cells 0 SEEN Urine Bacteria 3+ Urine Mucus 0 SEEN Radiography Chest X-Ray - ED: 1 View, Read by ED Physician, Read by Radiologist and No Acute Disease Diagnostic Testing: Clinical Impression(s) from Imaging Studies Chest X-Ray 12/22/23 22:59 IMPRESSION: Chest with no acute disease. Electronically Signed: Eric Soria MD at 23:21 EST , Chest x-ray was obtained. There is 1 view. On my independent interpretation, there is no acute infiltrate noted. There is no pneumothorax noted. Bony thorax is normal. There is no cardiomegaly noted. Radiologist also interpreted the x-rays and agrees. EKG Initial EKG: Attestation: I personally reviewed and interpreted this EKG as follows: Interpretation: No Acute Injury Pattern and Sinus Tachycardia (With a first-degree AV block with a rate of 111) Comments: EKG was obtained. On my independent interpretation, there is a sinus tachycardia with a first-degree AV block with a rate of 111. AL interval was slightly prolonged at 208 ms. QRS interval was normal at 98 ms. QTc interval was normal at 432 ms. [place] was normal. There are no acute ST or T wave changes. Prior EKG tracings: available for review Prior: Unchanged (04/25/2023) Management Discussion w/another healthcare provider: Hospitalist Treatment and Re-Evaluation :: Patient was given IV fluids and Tylenol here. Patient was started on cefepime. Patient and family were advised of the findings. Case will be discussed with the hospitalist for admission. Patient and family understand and are agreeable with plan. All questions were answered. Discharge Plan Dx/Rx/DC Orders Clinical Impression: Urinary tract infection, Essential hypertension, Acute kidney injury Disposition Disposition: Acute Care Hospital [facility]
--- NOTE | 2023-04-28 22:24 | EKG12_ITS ---
Test Reason : DYSRHYTHMIA Blood Pressure : / mmHG Vent. Rate : 111 BPM Atrial Rate : 111 BPM P-R Int : 208 ms QRS Dur : 098 ms QT Int : 318 ms P-R-T Axes : 046 012 027 degrees QTc Int : 432 ms Sinus tachycardia Incomplete right bundle branch block Borderline ECG Confirmed by ROB KEITH, CHRIS ([id number]), news assignment editor BEN NEWMAN ([id number]) on 05/09/2023 8:47:03 AM Referred By: Confirmed By:CHRIS RIVAS MD
[2023-04-28 22:51] LABS: Absolute Lymphocyte Count 0.87 X10^3/uL (0.83-4.51); Basophil# 0.04 X10^3/uL; Basophil% 0.3 % (0-1); Hematocrit 31.6 % (40-54); Lymphocyte # 0.87 X10^3/ul (0.83-4.51); Lymphocyte % 5.7 % (19-41); Mean Corp Hgb Conc 31.6 g/dL (32-36); Mean Corpuscular Hgb 27.4 pg (27.0-32.0); Mean Corpuscular Volume 86.6 fL (80-94); Mean Platelet Vol. 9.5 fl (6.2-12.0); Monocyte# 1.14 X10^3/uL; Monocyte% 7.5 % (0-10); NRBC Flagged by Analyzer 0 % (0-5); Neutrophil # 13.02 X10^3/uL (2.7-7.7); Neutrophil % 85.8 % (47-70); Platelet Count 253 K/mm3 (150-450); RBC Distribution Width CV 14.3 % (11.6-14.6); RBC Distribution Width SD 45.9 fl (35.1-43.9); Red Blood Count 3.65 M/mm3 (4.6-6.2); White Blood Count 15.2 K/mm3 (4.4-11.0)
[2023-04-28] MEDS: 0.9% Normal Saline (1000mL) 1,000 ML 999 ML IV (22:58)
--- NOTE | 2023-04-28 22:59 | RAD_ITS ---
INDICATION: Weakness EXAMINATION/TECHNIQUE: X-RAY - XR Chest 1 View COMPARISON: 04/25/2023 chest radiograph. Findings: Single frontal view of the chest. LUNG PARENCHYMA: No acute focal airspace disease or mass lesion. PLEURA: No pleural effusion. No pneumothorax. HEART/[place]: Cardiomediastinal silhouette is unremarkable. BONES: Osseous structures are unremarkable for age. RAD/Chest 1 View (Portable) IMPRESSION: Chest with no acute disease. Electronically Signed: Eric Soria MD at 23:21 EST ,
[2023-04-28 23:00] VITALS: O2SAT 88
[2023-04-28 23:06] LABS: International Normalized Ratio 1.3; Partial Thromboplast Time 29.8 Seconds (24.1-36.2); Prothrombin Time (Protime)PT. 15.8 SECONDS (11.7-14.9)
[2023-04-28 23:11] LABS: ALB/GLOB Ratio 0.4 RATIO (0.9-2.4); AST(SGOT) 31 U/L (15-37); Alanine Aminotransfer ALT/SGPT 21 U/L (16-61); Albumin, Serum 2.7 g/dL (3.2-5.0); Alkaline Phosphatase 82 U/L (45-117); Anion Gap 6 (5-15); BUN 22 mg/dL (7-18); BUN/Creat Ratio 15.1 RATIO (10-20); Calcium,Total 9.1 mg/dL (8.5-10.1); Chloride 96 mmol/L (98-107); Creatinine, Serum 1.46 mg/dL (0.70-1.30); EST Glomerular Filtration Rate 49 mL/min (>60); Est Glom Filt Rate - Afr Amer 59 mL/min (>60); Estimated Creatinine Clearance 39.58 ml/min; Globulin 6.2 g/dL (2.2-4.2); Glucose 152 mg/dL (74-106); Protein, Total 8.9 g/dL (6.4-8.2); Sodium Level 130 mmol/L (136-145)
[2023-04-28 23:16] LABS: Lactic Acid 1.5 mmol/L (0.4-1.9)
[2023-04-28 23:26] VITALS: BP 136/89; PULSE 110; RESP 28; TEMP 38.3; O2SAT 91
[2023-04-28 23:26] LABS: Mucous, Urine 0 SEEN /hpf (<or=2+); Squamous Epithelial Cells - UA 0 SEEN /hpf (0-5)
[2023-04-28 23:28] LABS: Color, Urine Yellow (Yellow); Glucose, Dipstick Normal (Normal); Ketone-Dipstick Negative (Negative); Leukocyte Esterase-Dipstick 500 /ul (Negative); Nitrite-Dipstick Positive (Negative); Occult Blood-Urine 250 /ul (Negative); Protein-Dipstick 100 mg/dl (Negative); Specific Gravity, Urine 1.015 (1.002-1.030); Urine Bilirubin Dipstick Negative (Negative); Urine Clarity Cloudy (Clear); Urine Urobilinogen Normal (Normal)
[2023-04-28 23:30] VITALS: BP 131/80; PULSE 112; RESP 26; TEMP 38.3; O2SAT 92
[2023-04-28 23:35] LABS: Bacteria 3+ /hpf (None Seen); Red Blood Cells-Urine 5-10 SEEN /hpf (0-5); White Blood Cells >100 SEEN /hpf (0-5)
[2023-04-28] MEDS: Acetaminophen 500 MG Tablet 1000 MG PO (23:42)
[2023-04-29] VITALS (7 sets, daily range): BP systolic 106–165; BP diastolic 64–101; PULSE 97–107; RESP 18–24; TEMP 36.6–37.6; O2SAT 94–100; BMI 35.7
--- NOTE | 2023-04-29 00:30 | PCM.HP.STD ---
[facility] - General General Date of Admission: 04/29/23 Date of Service: 04/29/23 Chief Complaint: Fever, confusion, generalized weakness and fatigue HPI Narrative KEENA FRIED, is a 82 M with a past medical history of essential hypertension, hyperlipidemia, obesity; with 36.8 this admission, history aortic stenosis; status post TAVR (09/2022), chronic anemia, depression, history of colonic diverticulosis, history of prostate cancer; with slow progressive clinical decline, BPH, restless leg syndrome, GERD and osteoarthritis; with chronic back pain syndrome who presents to [facility] ER complaining of fever, confusion, generalized weakness and fatigue. Mr. Fried is not a reliable historian this time so information was gathered from the chart, medical staff and computer. According to the records his symptoms began approximately 1 week prior to admission with a gradual-onset of generalized weakness and fatigue that is not been made better or worse by anything. In the ER he was noted to have a fever of 101 ?F with leukocytosis of 15.2 and tachycardia of 112 bpm present on admission with a urinalysis that was grossly positive for UTI complicated by clinical evidence of ZAHEER with serum creatinine increased to 1.46 mg/dL with a BUN of 22 mg/dL (up from his baseline serum creatinine of 1.12 mg/dL with a BUN of 15 mg/dL three days ago) compounded by clinical evidence of metabolic encephalopathy and generalized weakness and he was then admitted to the general medical floor for ongoing care for stay that is expected to be greater than 48 hours. [facility] Medical History (Updated 04/29/23 @ 07:[address] Mark Jesus, ) Abnormal electrocardiogram Ambulates with cane Anemia Anemia Aortic stenosis Arthritis Atrial fibrillation Back pain BPH (benign prostatic hyperplasia) Cancer Cardiology follow-up encounter Chronic back pain Chronic indwelling Lock[place] catheter Depression Diverticulosis DVT (deep venous thrombosis) Easy bruising Essential hypertension Gastric reflux GERD (gastroesophageal reflux disease) History of echocardiogram History of edema History of steroid therapy Hyperlipidemia Hypertension Inguinal hernia Irregular heart beat Kidney disease Kidney stones Leg cramps Loss of hearing Lung nodule Multiple premature ventricular complexes Non-smoker Nonrheumatic aortic (valve) stenosis Obesity Osteoarthritis Prostate cancer metastatic to bone Prostate disease Restless legs Wears glasses Wears hearing aid Home Medications acidophilus 25 million cell-pectin, citrus 100 mg tablet 1 tab PO DAILY probiotic 03/12/14 [History Last Taken 04/10/22] finasteride 5 mg tablet 5 mg PO DAILY BPH 03/21/22 [History Last Taken 04/10/22] cholecalciferol (vitamin D3) 125 mcg (5,000 unit) tablet (Vitamin D3) 125 mcg PO DAILY supplement 04/10/22 [History Last Taken 04/10/22] kwlejzsm-ehq-rfgtf acid 0.4 mg-lycopene 300 mcg-lutein 250 mcg tablet (Centrum Silver) 1 tab PO DAILY supplement 04/10/22 [History Last Taken 04/10/22] potassium chloride 20 mEq tablet,extended release 20 meq PO BID 06/21/22 [History Last Taken Unknown] albuterol sulfate 90 mcg/actuation aerosol inhaler 2 puff inhalation Q6H PRN shortness of breath or wheezing 10/12/22 [History Last Taken Unknown] metoprolol succinate 50 mg tablet,extended release 24 hr 50 mg PO DAILY 10/12/22 [History Last Taken Unknown] omeprazole 20 mg capsule,delayed release 20 mg PO DAILY 10/12/22 [History Last Taken Unknown] tamsulosin 0.4 mg capsule 0.4 mg PO DAILY BPH 10/12/22 [History Last Taken Unknown] ondansetron 4 mg disintegrating tablet 4 mg PO Q8H PRN PRN Nausea #10 tabs 04/25/23 [Rx Last Taken Unknown] oxycodone-acetaminophen 5 mg-325 mg tablet (Percocet) 1 tab PO Q8H PRN pain 7 days #15 tabs 04/27/23 [Rx Last Taken Unknown] Allergy/AdvReac Type Severity Reaction Status Date / Time No Known Allergies Allergy Verified 04/27/23 12:13 Family History Father Heart disease Surgical History (Updated 04/29/23 @ 02:30 by Lucretia Faye) Amputated toe History of AAA (abdominal aortic aneurysm) repair History of carpal tunnel release History of cystoscopy History of inguinal hernia repair History of left knee replacement History of total knee arthroplasty History of transcatheter aortic valve replacement (TAVR) (~09/26/22) Social History household members: spouse Smoking Status: Never smoker substance use type: does not use ROS ROS Narrative Patient has significant metabolic encephalopathy and cannot reliably answer questions as he thinks he is in pain management in the ER and when asked what the year is he said the #3. He also denied fever but was noted to have an elevated temperature of 101 ?F. Therefore, since he is an unreliable source of information no meaningful review of systems was possible at this time. Vital Signs Vital Signs Vital Signs: 04/28/23 22:07 04/28/23 22:13 04/28/23 22:13 Temperature 98.4 F 98.4 F Temperature Source Temporal Temporal Pulse Rate 108 H 107 H Respiratory Rate 27 H 21 H Respiratory Pattern Normal Blood Pressure 139/73 H 139/73 H Blood Pressure Mean 95 95 Pulse Ox 94 95 Oxygen Delivery Method Room Air Room Air Oxygen Flow Rate (L/min) 04/28/23 23:00 04/28/23 23:26 04/28/23 23:30 Temperature 101.0 F H 101.0 F H Temperature Source Oral Oral Pulse Rate 110 H 112 H Respiratory Rate 28 H 26 H Respiratory Pattern Blood Pressure 136/89 H 131/80 H Blood Pressure Mean 104 97 Pulse Ox 88 91 92 Oxygen Delivery Method Room Air Nasal Cannula Nasal Cannula Oxygen Flow Rate (L/min) 2 2 Weight Weight: 256 lb 6.362 oz Body Mass Index (BMI) 36.8 Physical Exam Const alert, no apparent distress and average body habitus General Appearance: cooperative Orientation / Consciousness: confused and disoriented HEENT normocephalic, head/scalp atraumatic, hearing grossly normal bilaterally and moist oral mucous membranes Eyes PERRL, EOMs intact bilaterally and conjunctivae normal Neck no lymphadenopathy and supple Resp normal respiratory effort, no retractions, no use of accessory muscles and clear to auscultation bilaterally Cardio regular rate and regular rhythm GI normal to inspection, nondistended, normoactive bowel sounds, soft to palpation, non-tender and non-distended Extremity normal to inspection, full ROM and no clubbing, cyanosis or edema Skin Skin Narrative: Patient has no evidence of rash at this time. Neuro CN's II-XII intact bilaterally, moves all extremities and no focal motor deficits Sensorium / Orientation: awake, alert and oriented to person Speech: speech normal Motor Exam: strength 5/5 throughout Psych affect normal Psych Narrative: Patient is alert but his orientation is markedly impaired. Results Medical Records Data Attestation: I reviewed the patient's medical records Lab / Micro Data Attestation: I reviewed the patient's lab results. 04/28/23 22:35 04/28/23 22:35 Labs: Laboratory Results - last 24 hr 04/28/23 22:35: WBC 15.2 H, RBC 3.65 L, Hgb 10.0 L, Hct 31.6 L, MCV 86.6, MCH 27.4, MCHC 31.6 L, RDW Std Deviation 45.9 H, RDW Coeff of Marta 14.3, Plt Count 253, MPV 9.5, Immature Gran % (Auto) 0.700, Neut % (Auto) 85.8 H, Lymph % (Auto) 5.7 L, [place] % (Auto) 7.5, Eos % (Auto) 0.0, Baso % (Auto) 0.3, Absolute Neuts (auto) 13.0 H, Absolute Lymphs (auto) 0.87, Nucleated RBC % 0, PT 15.8 H, INR 1.3, APTT 29.8, Sodium 130 L, Potassium 4.0, Chloride 96 L, Carbon Dioxide 28.0, Anion Gap 6, BUN 22 H, Creatinine 1.46 H, Estim Creat Clear Calc 39.58, Est GFR (MDRD) Af Amer 59 L, Est GFR (MDRD) Non-Af 49 L, BUN/Creatinine Ratio 15.1, Glucose 152 H, Lactic Acid 1.5, Calcium 9.1, Total Bilirubin 1.00, AST 31, ALT 21, Alkaline Phosphatase 82, Total Protein 8.9 H, Albumin 2.7 L, Globulin 6.2 H, Albumin/Globulin Ratio 0.4 L 04/28/23 23:20: Urine Color Yellow, Urine Clarity Cloudy, Urine pH 6.0, Ur Specific [place] 1.015, Urine Protein 100 H, Urine Glucose (UA) Normal, Urine Ketones Negative, Urine Occult Blood 250 H, Urine Nitrite Positive H, Urine Bilirubin Negative, Urine Urobilinogen Normal, Ur Leukocyte Esterase 500 H, Urine RBC 5-10 SEEN, Urine WBC >100 SEEN, Ur Squamous Epith Cells 0 SEEN, Urine Bacteria 3+, Urine Mucus 0 SEEN Micro: Microbiology 04/28/23 23:04 Nasal Secretion SARS-CoV-2 & FLU Antigen (Rapid) - Final Imagaing Radiology Impression Chest X-Ray 04/28/23 22:59 IMPRESSION: Chest with no acute disease. Electronically Signed: Eric Soria MD at 23:21 EST , Assessment & Plan Assessment/Plan (1) Acute kidney injury: (2) Urinary tract infection: QUALIFIERS: Urinary tract infection type: acute cystitis Hematuria presence: with hematuria Qualified Code(s): N30.01 - Acute cystitis with hematuria (3) Metabolic encephalopathy: PLAN: Plan 1. Acute cystitis; with microscopic hematuria and positive SIRS criteria: with fever of 101 ?F, leukocytosis of 15.2 and tachycardia of 112 bpm - Admit to general medical floor for treatment under the sepsis protocol. Continue broad-spectrum antibiotics begun in the ER and await culture and sensitivity data. Give Tylenol as needed fever or pain. 2. Acute kidney injury; with serum creatinine increased to 1.46 mg/dL with a BUN of 22 mg/dL present on admission (up from his baseline serum creatinine of 1.12 mg/dL and a BUN of 15 mg/dL three days ago) - Give vigorous volume resuscitation outlined in #1 and recheck BMP in the a.m. to assess for improvement. Avoid potentially nephrotoxic agents. 3. Metabolic encephalopathy arising from #1 & #2 - Continue abortive care outlined above and monitor for improvement. Check TSH. Check urine drug screen with patient recently prescribed opiates rule out any other contributing factors to his cognitive decline. 4. Prostate cancer with [id number] generalized weakness attributable to #1 - #3 in the setting of osteoarthritis; with chronic back pain syndrome -this patient's family is overwhelmed in their attempt to care for him at home as the patient's is very elderly and everyone is very busy taking care of their own responsibilities. Therefore, we will consult palliative care to see this patient on rounds in the a.m. for further recommendations (as he was resistant to previous hospice consultation in the past) with help appreciated in advance. PT/OT and case management to consult and treat in the a.m. on rounds with help appreciated in advance. 5. Essential hypertension - Hold scheduled antihypertensives in light of #1. Give IV hydralazine as needed for systolic blood pressure greater than 160 mmHg. 6. BPH - Resume tamsulosin and finasteride as previous. Check PSA screen this admission with known history of prostate cancer. 7. Hyperlipidemia - Stable. Check lipid profile this admission as patient is currently not on a statin. 8. Obesity; with 36.8 this admission - Weight loss will be recommended when patient's sensorium clears. 9. History aortic stenosis; status post TAVR (09/2022) - Noted. 10. Chronic anemia - Stable with hemoglobin of 10 g/dL present on admission. 12. Depression - Stable. 13. History of colonic diverticulosis - Noted. 14. Restless legs syndrome - Stable. 15. GERD - Continue PPI as previous. 16. DVT prophylaxis - Lovenox 40 mg subcu daily plus SCDs. Total time: Approximately 55 minutes. Update: Patient was rechecked approximately 4 hours after admission with an initial normal lactate of 1.5 mmol/L present on admission with a normal second lactate of 1 mmol/L. His blood pressure also markedly improved. RN was updated with plan. Sepsis Attestation Sepsis Attestation: Sepsis Ruled Out Date exam was performed: 04/29/23 Time exam was performed: 01:00 Possible Source of Sepsis: Genitourinary Sepsis Organ Dysfunction Criteria Present: New/Unexplained change in mental status Fluid Resuscitation Fluid resuscitation indicated?: Yes Fluid Resuscitation ordered: 30 ml/kg fluid bolus ordered Amount of fluid ordered: 3 Sepsis Note Date exam was performed: 04/29/23 Time exam was performed: 05:00 Sepsis Attestation: Sepsis re-evaluation was performed Response to fluids: Fluid responsive hypotension Charges/Coding Visit Charges Inpatient E&M: 28994 Init Hosp L2
[2023-04-29] MEDS: Cefepime HCl 2 GM in 0.9% Normal Saline (100mL MB+) 100 ML IV (00:52)
--- OUTSIDE RECORDS SUMMARY | 2023-04-29 01:12 | XMS RPT_ITS | CCD ---
Author Name Unknown Address [address] [place] [address] Organization [facility] Care Team Providers Care Order Checker Name Role Phone Kwabena KEITH MD, Jaswinder Unavailable Randa KEITH, Darrin Martinez Primary Care Provider Kwabena KEITH MD, Jaswinder Unavailable Darrin Tolentino MD Primary Care Provider Pedro SHARP, Dalila Unavailable German Merino Primary Care Provider TEMO HUDOSN Attending Unavailable EUNICE, GERMAN Primary Care Unavailable TABATHA GONSALVES Attending Unavailable GERMAN MERINO Primary Care Unavailable DANA OCAMPO Attending Unavailable EUNICE, GERMAN Primary Care Unavailable TABATHA GONSALVES Admitting Unavailable TABATHA GONSALVES Attending Unavailable RIKA COTORIL Referring Unavailable EUNICE, GERMAN Primary Care Unavailable OTONIEL HUDSON Attending Unavailable OTONIEL HUDSON Referring Unavailable GERMAN MERINO Primary Care Unavailable German Merino Primary Care Provider Jude Tam MD Unavailable RANDA DARRIN A Primary Care Unavailable ALEM MALDONADO Attending Unavailable RANDA, DARRIN A Primary Care Unavailable KENISHA MENON Attending UnavailBENSON Elizabeth Attending Unavailable MORGAN RAMÍREZ Referring Unavailable RANDA, DARRIN A Primary Care Unavailable RANDA, DARRIN A Primary Care Unavailable KELSIE MORA Attending Unavailable RANDA, DARRIN A Primary Care Unavailable CARMEN ENGLAND Attending Unavailable RANDA, DARRIN A Primary Care Unavailable RANDA, DARRIN A Primary Care Unavailable RANDA, DARRIN A Primary Care Unavailable BLOSSOM FUNES Referring Unavailable RANDA, DARRIN A Primary Care Unavailable KELSIE MORA Referring Unavailable BLOSSOM FUNES Referring Unavailable RANDA, DARRIN A Primary Care Unavailable JUDE TAM Attending Unavailable MORGAN RAMÍREZ Referring Unavailable RANDA, DARRIN A Primary Care Unavailable RANDA, DARRIN A Referring Unavailable RANDA, DARRIN A Primary Care Unavailable CARMEN ENGLAND Attending Unavailable RANDA, DARRIN A Primary Care Unavailable CARMEN ENGLAND Referring Unavailable BLOSSOM FUNES Referring Unavailable RANDA, DARRIN A Primary Care Unavailable JUDE TAM Attending Unavailable RANDA, DARRIN A Primary Care Unavailable MASCI, ABDIRIZAK A Referring Unavailable RANDA, DARRIN A Primary Care Unavailable CARMEN ENGLAND Referring Unavailable RANDA, DARRIN A Primary Care Unavailable KELSIE MORA Attending Unavailable RANDA, DARRIN A Attending Unavailable RANDA, DARRIN A Primary Care Unavailable RANDA, DARRIN A Primary Care Unavailable RANDA, DARRIN A Attending Unavailable RANDA, DARRIN A Referring Unavailable RANDA, DARRIN A Primary Care Unavailable RANDA, DARRIN A Referring Unavailable RANDA, DARRIN A Primary Care Unavailable RANDA, DARRIN A Primary Care Unavailable RANDA, DARRIN A Primary Care Unavailable RANDA, DARRIN A Primary Care Unavailable RANDA, DARRIN A Attending Unavailable RANDA, DARRIN A Primary Care Unavailable MASCI, ABDIRIZAK A Referring Unavailable RANDA, DARRIN A Primary Care Unavailable CARMEN ENGLAND Referring Unavailable RANDA, DARRIN A Primary Care Unavailable MASCI, ABDIRIZAK A Referring Unavailable RANDA, DARRIN A Primary Care Unavailable CARMEN ENGLAND Attending Unavailable RANDA, DARRIN A Primary Care Unavailable CARMEN ENGLAND Referring Unavailable RANDA, DARRIN A Primary Care Unavailable MORGAN RAMÍREZ Referring Unavailable MORGAN RAMÍREZ Attending Unavailable RANDA, DARRIN A Primary Care Unavailable JOSE JANE Referring Unavailable RANDA, DARRIN A Primary Care Unavailable RANDA, DARRIN A Referring Unavailable RANDA, DARRIN A Primary Care Unavailable MASCI, ABDIRIZAK A Referring Unavailable RANDA, DARRIN A Primary Care Unavailable CARMEN ENGLAND Attending Unavailable RANDA, DARRNI A Primary Care Unavailable BLOSSOM FUNES Attending Unavailable BLOSSOM FUNES Referring Unavailable RANDA, DARRIN A Primary Care Unavailable BLOSSOM FUNES Referring Unavailable RANDA, DARRIN A Primary Care Unavailable BLOSSOM FUNES Referring Unavailable RANDA, DARRIN A Primary Care Unavailable BLOSSOM FUNES Referring Unavailable RANDA, DARRIN A Primary Care Unavailable HENRIK NUGENT Attending Unavailable DARRIN TOLENTINO Primary Care Unavailable DARRIN TOLENTINO Referring Unavailable DARRIN TOLENTINO Attending Unavailable DARRIN TOLENTINO Primary Care Unavailable DARRIN TOLENTINO Primary Care Unavailable DARRIN TOLENTINO Primary Care Unavailable Allergies Allergy Classification Reported Allergen(s) Allergy Type Date of Onset Reaction(s) Facility (20 sources) amLODIPine; Translations: [AMLODIPINE] Drug Allergy 07-01-2022 Other: See Comments [facility] Work Phone: Medications Current Medications Medication Drug Class(es) Dates Sig (Normalized) Sig (Original) cefadroxil 500 mg oral capsule (5 sources) Cephalosporin Antibacterial Start: 06-07-2022 End: 06-17-2022 take 1 capsule by mouth twice daily cefADROxil (DURICEF) 500 mg capsule Take 1 capsule by mouth twice daily for 10 days. 20 capsule 0 06/07/2022 06/17/2022 Active Completed/Discontinued Medications Medication Drug Class(es) Dates Sig (Normalized) Sig (Original) abiraterone acetate 250 mg oral tablet (20 sources) Cytochrome P450 17A1 Inhibitor Start: 11-15-2021 End: 09-08-2022 take 4 tablets by mouth once daily 1 hour(s) after mealtime abiraterone 250 mg tablet Indications: Prostate cancer (HCC) Take 4 tablets by mouth once daily on an empty stomach (1 hour before or 2 hours after a meal) 120 tablet 5 05/30/2022 09/08/2022 Discontinued Problems Active Problems Problem Classification Problem Date Documented Da te Episodic/Chronic Abdominal pain (1 source) Left flank pain; Translations: [Unspecified abdominal pain] Episodic Acute and unspecified renal failure (1 source) Acute injury of kidney; Translations: [Acute kidney failure, unspecified] Episodic Cancer of prostate (20 sources) Malignant tumor of prostate; Translations: [Malignant neoplasm of prostate] Onset: 04-27-2017 02-04-2021 Chronic Cancer of prostate (1 source) History of malignant neoplasm of prostate; Translations: [Personal history of malignant neoplasm of prostate] 01-17-2023 Episodic Deficiency and other anemia (1 source) Iron deficiency anemia due to blood loss; Translations: [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 Deficiency and other anemia (1 source) Iron deficiency anemia secondary to blood loss (chronic); Translations: [Iron deficiency anemia due to chronic blood loss] Onset: 09-02-2022 Chronic Disorders of lipid metabolism (20 sources) Mixed hyperlipidemia; Translations: [Mixed hyperlipidemia] Onset: 10-28-2011 08-04-2020 Chronic Diverticulosis and diverticulitis (20 sources) Diverticulosis of colon; Translations: [Diverticulosis of large intestine without perforation or abscess without bleeding] Onset: 02-25-2009 08-04-2020 Chronic Esophageal disorders (20 sources) Gastro-esophageal reflux disease with esophagitis; Translations: [Gastroesophageal reflux disease with esophagitis without hemorrhage] Onset: 08-04-2020 08-04-2020 Chronic Essential hypertension (20 sources) Benign essential hypertension; Translations: [Essential (primary) hypertension] Onset: 10-17-2005 08-04-2020 Chronic Genitourinary symptoms and ill-defined conditions (2 sources) Urinary incontinence; Translations: [Unspecified urinary incontinence] Onset: 09-20-2022 Chronic Heart valve disorders (20 sources) Aortic stenosis, non-rheumatic ; Translations: [Nonrheumatic aortic (valve) stenosis] Onset: 08-12-2021 Chronic Hyperplasia of prostate (4 sources) Benign prostatic hyperplasia; Translations: [Benign prostatic hyperplasia without lower urinary tract symptoms] Onset: 09-02-2022 09-02-2022 Chronic Infective arthritis and osteomyelitis (except that caused by tuberculosis or sexually transmitted disease) (20 sources) Acute osteomyelitis of left foot; Translations: [Other acute osteomyelitis, left ankle and foot] Onset: 09-08-2022 09-08-2022 Chronic Malaise and fatigue (1 source) Fatigue; Translations: [Other fatigue] Episodic Nutritional deficiencies (20 sources) Vitamin D deficiency; Translations: [Vitamin D deficiency, unspecified] Onset: 01-07-2020 08-04-2020 Chronic Osteoarthritis (20 sources) Arthritis of right knee; Translations: [Unilateral primary osteoarthritis, right knee] Onset: 07-14-2020 08-04-2020 Chronic Other acquired deformities (1 source) Spondylolisthesis; Translations: [Spondylolisthesis, cervical region] Episodic Other connective tissue disease (1 source) Mass of hand; Translations: [Other specified soft tissue disorders] Episodic Other connective tissue disease (1 source) Pain in left lower limb; Translations: [Pain in left leg] Episodic Other connective tissue disease (1 source) Pain in right leg; Translations: [Right leg pain] Onset: 04-25-2023 Episodic Other diseases of bladder and urethra (15 sources) Urethral false passage; Translations: [Urethral false passage] Onset: 02-22-2023 02-22-2023 Episodic Other lower respiratory disease (3 sources) Cough; Translations: [Cough] Episodic Other lower respiratory disease (3 sources) Multiple nodules of lung; Translations: [Other nonspecific abnormal finding of lung field] Episodic Other lower respiratory disease (1 source) Dyspnea; Translations: [Shortness of breath] Episodic Other male genital disorders (20 sources) Erectile dysfunction co-occurrent and due to arterial insufficiency; Translations: [Erectile dysfunction due to arterial insufficiency] Onset: 04-15-2015 08-04-2020 Chronic Other nervous system disorders (2 sources) Paresthesia of hand ; Translations: [Anesthesia of skin] Episodic Other nervous system disorders (1 source) Impairment of balance; Translations: [Other abnormalities of gait and mobility] 03-14-2023 Episodic Other screening for suspected conditions (not mental disorders or infectious disease) (2 sources) Raised prostate specific antigen; Translations: [Elevated prostate specific antigen [PSA]] Episodic Other upper respiratory infections (1 source) Chronic sinusitis; Translations: [Chronic sinusitis, unspecified] Chronic Other upper respiratory infections (2 sources) Acute upper respiratory infection; Translations: [Acute upper respiratory infection, unspecified] Episodic Peripheral and visceral atherosclerosis (20 sources) Peripheral vascular disease; Translations: [Peripheral vascular disease, unspecified] Onset: 09-08-2022 09-08-2022 Chronic Residual codes; unclassified (2 sources) Peripheral edema; Translations: [Edema, unspecified] Episodic Secondary malignancies (20 sources) Secondary malignant neoplasm of bone; Translations: [Secondary malignant neoplasm of bone] Onset: 12-16-2020 02-04-2021 Chronic Secondary malignancies (2 sources) Secondary malignant neoplasm of bone; 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)] Onset: 02-04-2021 Chronic Spondylosis; intervertebral disc disorders; other back problems (20 sources) Lumbar arthritis; Translations: [Spondylosis without myelopathy or radiculopathy, lumbar region] Onset: 08-04-2020 08-04-2020 Chronic Unclassified (1 source) Acute cough; Translations: [Acute cough] Onset: 08-25-2022 Past or Other Problems Problem Classification Problem Date Documented Da te Episodic/Chronic Administrative/social admission (20 sources) Advance directive discussed with patient; Translations: [Other specified counseling] Onset: 03-10-2022 Episodic Calculus of urinary tract (20 sources) History of calculus of kidney; Translations: [Personal history of urinary calculi] Onset: 10-28-2011 08-04-2020 Episodic Fluid and electrolyte disorders (2 sources) Hypokalemia; Translations: [Hypokalemia] Onset: 07-25-2022 Episodic Genitourinary symptoms and ill-defined conditions (20 sources) Nii hematuria; Translations: [Gross hematuria] Onset: 03-10-2022 Episodic Other aftercare (20 sources) Patient encounter status; Translations: [Other buttermaker continuous churn (current) drug therapy] Onset: 08-12-2021 Episodic Other aftercare (1 source) Other fdc (current) drug therapy; Translations: [Medication management] Onset: 08-12-2021 Episodic Other and unspecified benign neoplasm (20 sources) Lipoma of left upper limb; Translations: [Benign lipomatous neoplasm of skin and subcutaneous tissue of left arm] Onset: 02-04-2021 05-04-2021 Episodic Other connective tissue disease (1 source) Pain in left leg; Translations: [Left leg pain] Onset: 06-07-2022 Episodic Other gastrointestinal disorders (20 sources) Functional diarrhea; Translations: [Functional diarrhea] Onset: 01-14-2009 08-04-2020 Episodic Other lower respiratory disease (20 sources) Nodule of lung; Translations: [Solitary pulmonary nodule] Onset: 01-02-2019 02-12-2021 Episodic Other lower respiratory disease (1 source) Shortness of breath; Translations: [SOB (shortness of breath)] Onset: 08-18-2022 Episodic Other lower respiratory disease (1 source) Other nonspecific abnormal finding of lung field; Translations: [Lung nodules] Onset: 07-21-2022 Episodic Residual codes; unclassified (20 sources) Active living will ; Translations: [Other specified health status] Onset: 03-10-2022 Episodic Residual codes; unclassified (20 sources) Bilateral lower limb edema; Translations: [Localized edema] Onset: 07-01-2022 Episodic Residual codes; unclassified (1 source) Edema, unspecified; Translations: [Peripheral edema] Onset: 06-07-2022 Episodic Urinary tract infections (19 sources) Irradiation cystitis; 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 03-14-2023 11:57-0500 Systolic blood pressure 140 mm[Hg] Darrin Tolentino MD Work Phone: [facility] 03-14-2023 10:39-0500 Body weight 113.85 kg Darrin Tolentino MD Work Phone: [facility] 03-14-2023 10:39-0500 Heart rate 76 /min Darrin Tolentino MD Work Phone: [facility] 03-14-2023 10:39-0500 Respiratory rate 16 /min Darrin Tolentino MD Work Phone: [facility] 02-23-2023 08:34-0400 Diastolic blood pressure 90 mm[Hg] Jude Tam MD Work Phone: [facility] 02-23-2023 08:34-0400 Systolic blood pressure 160 mm[Hg] Jude Tam MD Work Phone: [facility] 02-22-2023 14:19-0400 Diastolic blood pressure 74 mm[Hg] Benson Koroma MD Work Phone: [facility] 02-22-2023 14:19-0400 Heart rate 94 /min Benson Koroma MD Work Phone: [facility] 02-22-2023 14:19-0400 SaO2% (BldA) [Mass fraction] 98 % Benson Koroma MD Work Phone: [facility] 10-18-2023 14:19-0400 Systolic blood pressure 138 mm[Hg] Benson Koroma MD Work Phone: [facility] 12-15-2022 09:40-0400 Diastolic blood pressure 90 mm[Hg] Jude Tam MD Work Phone: [facility] 12-15-2022 09:40-0400 Systolic blood pressure 138 mm[Hg] Jude Tam MD Work Phone: [facility] 12-15-2022 09:08-0400 Body weight 114.31 kg Jude Tam MD Work Phone: [facility] 12-15-2022 09:08-0400 Heart rate 86 /min Jude Tam MD Work Phone: [facility] 12-15-2022 09:08-0400 Respiratory rate 16 /min Jude aTm MD Work Phone: [facility] 12-15-2022 09:08-0400 SaO2% (BldA) [Mass fraction] 98 % Jude Tam MD Work Phone: [facility] 12-01-2022 08:56-0400 Body temperature 98.2 [degF] Injection Wstr Work Phone: [facility] 12-01-2022 08:56-0400 Body weight 112.95 kg Injection Wstr Work Phone: [facility] 12-01-2022 08:56-0400 Diastolic blood pressure 71 mm[Hg] Injection Wstr Work Phone: [facility] 12-01-2022 08:56-0400 Heart rate 76 /min Injection Wstr Work Phone: [facility] 12-01-2022 08:56-0400 Systolic blood pressure 130 mm[Hg] Injection Wstr Work Phone: [facility] 11-14-2022 08:38-0400 Diastolic blood pressure 74 mm[Hg] Darrin Tolentino MD Work Phone: [facility] 11-14-2022 08:38-0400 Systolic blood pressure 134 mm[Hg] Darrin Tolentino MD Work Phone: [facility] 11-14-2022 08:09-0400 Body temperature 97.11 [degF] Darrin Tolentino MD Work Phone: [facility] 11-14-2022 08:09-0400 Body weight 111.58 kg Darrin Tolentino MD Work Phone: [facility] 11-14-2022 08:09-0400 Heart rate 72 /min Darrin Tolentino MD Work Phone: [facility] 11-14-2022 08:09-0400 Respiratory rate 16 /min Darrin Tolentino MD Work Phone: [facility] 09-20-2022 14:17-0400 Body height 177.8 cm Morgan Ramírez PA-C Work Phone: [facility] 09-20-2022 14:17-0400 Body temperature 97.7 [degF] Morgan Ramírez PA-C Work Phone: [facility] 09-20-2022 14:17-0400 Body weight 112.49 kg Morgan Ramírez PA-C Work Phone: [facility] 09-20-2022 14:17-0400 Diastolic blood pressure 104 mm[Hg] Morgan Ramírez PA-C Work Phone: [facility] 09-20-2022 14:17-0400 Heart rate 86 /min Morgan Ramírez PA-C Work Phone: [facility] 09-20-2022 14:17-0400 Respiratory rate 16 /min Morgan Ramírez PA-C Work Phone: [facility] 09-20-2022 14:17-0400 SaO2% (BldA) [Mass fraction] 98 % Morgan Ramírez PA-C Work Phone: [facility] 09-20-2022 14:17-0400 Systolic blood pressure 140 mm[Hg] Morgan Ramírez PA-C Work Phone: [facility] 09-13-2022 14:26-0400 Body height 177.8 cm Dana Ocampo MD Work Phone: [facility] [employer] 09-13-2022 14:26-0400 Body mass index (BMI) [Ratio] 35.43 kg/m2 Dana Ocampo MD Work Phone: [facility] [employer] 09-13-2022 14:26-0400 Body weight 112 kg Dana Ocampo MD Work Phone: [facility] [employer] 09-13-2022 14:26-0400 Diastolic blood pressure 90 mm[Hg] Dana Ocampo MD Work Phone: [facility] [employer] 09-13-2022 14:26-0400 Heart rate 91 /min Dana Ocampo MD Work Phone: [facility] [employer] 09-13-2022 14:26-0400 SaO2% (BldA) [Mass fraction] 98 % Dana Ocampo MD Work Phone: [facility] [employer] 09-13-2022 14:26-0400 Systolic blood pressure 144 mm[Hg] Dana Ocampo MD Work Phone: [facility] [employer] 09-13-2022 14:16-0400 Body height 177.8 cm Tabatha Bhatia Work Phone: [facility] [employer] 09-13-2022 14:16-0400 Body mass index (BMI) [Ratio] 35.58 kg/m2 Tabatha Gonsalves MD Work Phone: [facility] [employer] 09-13-2022 14:16-0400 Body weight 112.49 kg Tabatha Bhatia Work Phone: [facility] [employer] 09-13-2022 14:16-0400 Diastolic blood pressure 90 mm[Hg] Tabatha Gonsalves MD Work Phone: [facility] [employer] 09-13-2022 14:16-0400 Heart rate 91 /min Tabatha Bhatia Work Phone: [facility] [employer] 09-13-2022 14:16-0400 SaO2% (BldA) [Mass fraction] 98 % Tabtaha Gonsalves MD Work Phone: [facility] 09-13-2022 14:16-0400 Systolic blood pressure 144 mm[Hg] Tabatha Gonsalves MD Work Phone: [facility] 09-08-2022 10:04-0400 Body temperature 98.6 [degF] Carmen England PA- C Work Phone: [facility] 09-08-2022 10:04-0400 Body weight 111.58 kg Carmen England PA- C Work Phone: [facility] 09-08-2022 10:04-0400 Diastolic blood pressure 86 mm[Hg] Carmen England PA-C Work Phone: [facility] 09-08-2022 10:04-0400 Heart rate 96 /min Carmen England PA- C Work Phone: [facility] 09-08-2022 10:04-0400 Respiratory rate 18 /min Carmen England PA- C Work Phone: [facility] 09-08-2022 10:04-0400 Systolic blood pressure 132 mm[Hg] Carmen England PA-C Work Phone: [facility] 09-08-2022 08:39-0400 Body temperature 97.11 [degF] Injection Wstr Work Phone: [facility] 09-08-2022 08:39-0400 Body weight 112.49 kg Injection Wstr Work Phone: [facility] 09-08-2022 08:39-0400 Diastolic blood pressure 87 mm[Hg] Injection Wstr Work Phone: [facility] 09-08-2022 08:39-0400 Heart rate 88 /min Injection Wstr Work Phone: [facility] 09-08-2022 08:39-0400 Systolic blood pressure 145 mm[Hg] Injection Wstr Work Phone: [facility] 08-25-2022 10:11-0400 Body temperature 99.1 [degF] Krislyn Aberegg PA Work Phone: [facility] 08-25-2022 10:11-0400 Body weight 112.95 kg Krislyn Aberegg PA Work Phone: [facility] 08-25-2022 10:11-0400 Diastolic blood pressure 92 mm[Hg] Krislyn Aberegg PA Work Phone: [facility] 08-25-2022 10:11-0400 Heart rate 95 /min Krislyn Aberegg PA Work Phone: [facility] 08-25-2022 10:11-0400 Respiratory rate 20 /min Krislyn Aberegg PA Work Phone: [facility] 08-25-2022 10:11-0400 SaO2% (BldA) [Mass fraction] 98 % Krislyn Aberegg PA Work Phone: [facility] 08-25-2022 10:11-0400 Systolic blood pressure 158 mm[Hg] Krislyn Aberegg PA Work Phone: [facility] 08-18-2022 08:53-0400 Body temperature 98.1 [degF] Jose Jane MD Work Phone: [facility] 08-18-2022 08:53-0400 Body weight 115.67 kg Jose Jane MD Work Phone: [facility] 08-18-2022 08:53-0400 Diastolic blood pressure 74 mm[Hg] Jose Jane MD Work Phone: [facility] 08-18-2022 08:53-0400 Heart rate 96 /min Jose Jane MD Work Phone: [facility] 08-18-2022 08:53-0400 Respiratory rate 18 /min Jose Jane MD Work Phone: [facility] 08-18-2022 08:53-0400 SaO2% (BldA) [Mass fraction] 96 % Jose Jane MD Work Phone: [facility] 08-18-2022 08:53-0400 Systolic blood pressure 128 mm[Hg] Jose Jane MD Work Phone: [facility] 07-14-2022 10:46-0500 Diastolic blood pressure 82 mm[Hg] Darrin Tolentino MD Work Phone: [facility] 07-14-2022 10:46-0500 Systolic blood pressure 138 mm[Hg] Darrin Tolentino MD Work Phone: [facility] 07-14-2022 10:26-0500 Body weight 115.21 kg Darrin Tolentino MD Work Phone: [facility] 07-14-2022 10:26-0500 Heart rate 74 /min Darrin Tolentino MD Work Phone: [facility] 07-14-2022 10:26-0500 Respiratory rate 18 /min Darrin Tolentino MD Work Phone: [facility] 06-22-2022 10:45-0500 Body height 175.8 cm Henrik Nugent MD Work Phone: [facility] 06-22-2022 10:45-0500 Body temperature 97.9 [degF] Henrik Nugent MD Work Phone: [facility] 06-22-2022 10:45-0500 Body weight 117.48 kg Henrik Nugent MD Work Phone: [facility] 06-22-2022 10:45-0500 Diastolic blood pressure 87 mm[Hg] Henrik Nugent MD Work Phone: [facility] 06-22-2022 10:45-0500 Heart rate 73 /min Henrik Nugent MD Work Phone: [facility] 06-22-2022 10:45-0500 SaO2% (BldA) [Mass fraction] 100 % Henrik Nugent MD Work Phone: [facility] 06-22-2022 10:45-0500 Systolic blood pressure 124 mm[Hg] Henrik Nugent MD Work Phone: [facility] 06-07-2022 10:26-0500 Body weight 116.03 kg Carmen England PA- C Work Phone: [facility] 06-07-2022 10:26-0500 Diastolic blood pressure 80 mm[Hg] Carmen England PA-C Work Phone: [facility] 06-07-2022 10:26-0500 Heart rate 89 /min Carmen England PA- C Work Phone: [facility] 06-07-2022 10:26-0500 Respiratory rate 20 /min Carmen England PA- C Work Phone: [facility] 06-07-2022 10:26-0500 SaO2% (BldA) [Mass fraction] 98 % Carmen England PA-C Work Phone: [facility] 06-07-2022 10:26-0500 Systolic blood pressure 120 mm[Hg] Carmen England PA-C Work Phone: [facility] 05-31-2022 08:51-0500 Body weight 118.75 kg Carmen England PA- C Work Phone: [facility] 05-31-2022 08:51-0500 Diastolic blood pressure 70 mm[Hg] Carmen England PA-C Work Phone: [facility] 05-31-2022 08:51-0500 Heart rate 74 /min Carmen England PA- C Work Phone: [facility] 05-31-2022 08:51-0500 Respiratory rate 20 /min Carmen England PA- C Work Phone: [facility] 05-31-2022 08:51-0500 SaO2% (BldA) [Mass fraction] 97 % Carmen England PA-C Work Phone: [facility] 05-31-2022 08:51-0500 Systolic blood pressure 122 mm[Hg] Carmen England PA-C Work Phone: [facility] 05-17-2022 08:38-0500 Body temperature 97.81 [degF] Injection Wstr Work Phone: [facility] 05-17-2022 08:38-0500 Body weight 115.67 kg Injection Wstr Work Phone: [facility] 05-17-2022 08:38-0500 Diastolic blood pressure 72 mm[Hg] Injection Wstr Work Phone: [facility] 05-17-2022 08:38-0500 Heart rate 83 /min Injection Wstr Work Phone: [facility] 05-17-2022 08:38-0500 Systolic blood pressure 119 mm[Hg] Injection Wstr Work Phone: [facility] 04-28-2022 10:41-0500 Body weight 111.13 kg Kelsie Mora OVERHEAD CRANE OPERATOR.[employer]PART[employer] Work Phone: [facility] 04-28-2022 10:41-0500 Diastolic blood pressure 80 mm[Hg] Kelsie Ellyn OVERHEAD CRANE OPERATOR.[employer] Work Phone: [facility] 04-28-2022 10:41-0500 Heart rate 73 /min Kelsie Ellyn OVERHEAD CRANE OPERATOR.[employer] Work Phone: [facility] 04-28-2022 10:41-0500 Respiratory rate 16 /min Kelsie Mora OVERHEAD CRANE OPERATOR.[employer] Work Phone: [facility] 04-28-2022 10:41-0500 Systolic blood pressure 126 mm[Hg] Kelsie Mora OVERHEAD CRANE OPERATOR.[employer] Work Phone: [facility] 03-23-2022 08:23-0500 Body temperature 98.71 [degF] Blossom Funes OVERHEAD CRANE OPERATOR.[employer] Work Phone: [facility] 03-23-2022 08:23-0500 Body weight 115.67 kg Blossom Funes OVERHEAD CRANE OPERATOR.[employer] Work Phone: 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 03-23-2022 08:23-0500 Heart rate 79 /min Blossom Funes OVERHEAD CRANE OPERATOR.[employer] Work Phone: [facility] 03-23-2022 08:23-0500 Systolic blood pressure 133 mm[Hg] Blossom Funes OVERHEAD CRANE OPERATOR.[employer] Work Phone: [facility] 03-09-2022 15:05-0400 Body height 177.2 cm Darrin Tolentino MD Work Phone: [facility] 03-09-2022 15:05-0400 Body weight 112.49 kg Darrin Tolentino MD Work Phone: [facility] 03-09-2022 15:05-0400 Diastolic blood pressure 80 mm[Hg] Darrin Tolentino MD Work Phone: [facility] 03-09-2022 15:05-0400 Heart rate 64 /min Darrin Tolentino MD Work Phone: [facility] 03-09-2022 15:05-0400 Respiratory rate 18 /min Darrin Tolentino MD Work Phone: [facility] 03-09-2022 15:05-0400 Systolic blood pressure 128 mm[Hg] Darrin Tolentino MD Work Phone: [facility] 02-22-2022 09:06-0400 Body temperature 97.59 [degF] Injection Wstr Work Phone: [facility] 02-22-2022 09:06-0400 Body weight 113.4 kg Injection Wstr Work Phone: [facility] 02-22-2022 09:06-0400 Diastolic blood pressure 85 mm[Hg] Injection Wstr Work Phone: [facility] 02-22-2022 09:06-0400 Heart rate 70 /min Injection Wstr Work Phone: [facility] 02-22-2022 09:06-0400 Systolic blood pressure 134 mm[Hg] Injection Wstr Work Phone: [facility] 01-26-2022 09:05-0400 Diastolic blood pressure 81 mm[Hg] Mi Nurse Work Phone: [facility] 01-26-2022 09:05-0400 Heart rate 80 /min Mi Nurse Work Phone: [facility] 01-26-2022 09:05-0400 Systolic blood pressure 129 mm[Hg] Mi Nurse Work Phone: [facility] 12-29-2021 08:12-0400 Body temperature 97.39 [degF] Abdirizak Masci DO Work Phone: [facility] 12-29-2021 08:12-0400 Body weight 110.68 kg Abdirizak Masci DO Work Phone: [facility] 12-29-2021 08:12-0400 Diastolic blood pressure 109 mm[Hg] Abdirizak Masci DO Work Phone: [facility] 12-29-2021 08:12-0400 Heart rate 79 /min Abdirizak Masci DO Work Phone: [facility] 12-29-2021 08:12-0400 SaO2% (BldA) [Mass fraction] 95 % Abdirizak Masci DO Work Phone: [facility] 12-29-2021 08:12-0400 Systolic blood pressure 148 mm[Hg] Abdirizak Masci DO Work Phone: [facility] 11-30-2021 09:30-0400 Body temperature 97.5 [degF] Injection Wstr Work Phone: [facility] 11-30-2021 09:30-0400 Body weight 111.13 kg Injection Wstr Work Phone: [facility] 11-30-2021 09:30-0400 Diastolic blood pressure 73 mm[Hg] Injection Wstr Work Phone: [facility] 11-30-2021 09:30-0400 Heart rate 76 /min Injection Wstr Work Phone: [facility] 11-30-2021 09:30-0400 Systolic blood pressure 162 mm[Hg] Injection Wstr Work Phone: [facility] 09-07-2021 09:58-0400 Body temperature 97 [degF] Mirella Valerio OVERHEAD CRANE OPERATOR.[employer] Work Phone: [facility] 09-07-2021 09:58-0400 Body weight 112.4 kg Mirella Valeiro OVERHEAD CRANE OPERATOR.[employer] Work Phone: [facility] 09-07-2021 09:58-0400 Diastolic blood pressure 98 mm[Hg] Mirella Valerio OVERHEAD CRANE OPERATOR.[employer] Work Phone: [facility] 09-07-2021 09:58-0400 Heart rate 46 /min Mirella Valerio OVERHEAD CRANE OPERATOR.[employer] Work Phone: [facility] 09-07-2021 09:58-0400 Respiratory rate 18 /min Mirella Valerio OVERHEAD CRANE OPERATOR.[employer] Work Phone: [facility] 09-07-2021 09:58-0400 SaO2% (BldA) [Mass fraction] 100 % Mirella Valerio OVERHEAD CRANE OPERATOR.[employer] Work Phone: [facility] 09-07-2021 09:58-0400 Systolic blood pressure 170 mm[Hg] Mirella Valerio OVERHEAD CRANE OPERATOR.[employer] Work Phone: [facility] 09-07-2021 09:02-0400 Body temperature 97.81 [degF] Silvis Funes OVERHEAD CRANE OPERATOR.[employer] Work Phone: [facility] 09-07-2021 09:02-0400 Body weight 112.72 kg Blossom Funes OVERHEAD CRANE OPERATOR.[employer] Work Phone: [facility] 09-07-2021 09:02-0400 Diastolic blood pressure 100 mm[Hg] Blossom Funes OVERHEAD CRANE OPERATOR.[employer] Work Phone: [facility] 09-07-2021 09:02-0400 Heart rate 69 /min Silvis Funes OVERHEAD CRANE OPERATOR.[employer] Work Phone: [facility] 09-07-2021 09:02-0400 SaO2% (BldA) [Mass fraction] 94 % Blossom Funes OVERHEAD CRANE OPERATOR.[employer] Work Phone: [facility] 09-07-2021 09:02-0400 Systolic blood pressure 168 mm[Hg] Blossom Funes OVERHEAD CRANE OPERATOR.[employer] Work Phone: [facility] 08-16-2021 15:42-0400 Diastolic blood pressure 92 mm[Hg] Lab/Port Wstr Work Phone: [facility] 08-16-2021 15:42-0400 Heart rate 72 /min Lab/Port Wstr Work Phone: [facility] 08-16-2021 15:42-0400 Systolic blood pressure 150 mm[Hg] Lab/Port Wstr Work Phone: [facility] 08-12-2021 11:26-0400 Body weight 114.31 kg Darrin Tolentino MD Work Phone: [facility] 08-12-2021 11:26-0400 Diastolic blood pressure 82 mm[Hg] Darrin Tolentino MD Work Phone: [facility] 08-12-2021 11:26-0400 Heart rate 60 /min Darrin Tolentino MD Work Phone: [facility] 08-12-2021 11:26-0400 Respiratory rate 14 /min Darrin Tolentino MD Work Phone: [facility] 08-12-2021 11:26-0400 Systolic blood pressure 126 mm[Hg] Darrin Tolentino MD Work Phone: [facility] 07-29-2021 09:47-0400 Body temperature 97.59 [degF] Mirella Valerio OVERHEAD CRANE OPERATOR.[employer] Work Phone: [facility] 07-29-2021 09:47-0400 Body weight 113.22 kg Mirella Valerio OVERHEAD CRANE OPERATOR.[employer] Work Phone: [facility] 07-29-2021 09:47-0400 Diastolic blood pressure 72 mm[Hg] Mirella Valerio OVERHEAD CRANE OPERATOR.[employer] Work Phone: [facility] 07-29-2021 09:47-0400 Heart rate 47 /min Mirella Valerio OVERHEAD CRANE OPERATOR.[employer] Work Phone: [facility] 07-29-2021 09:47-0400 Respiratory rate 16 /min Mirella Valerio OVERHEAD CRANE OPERATOR.[employer] Work Phone: [facility] 07-29-2021 09:47-0400 SaO2% (BldA) [Mass fraction] 97 % Mirella Valerio OVERHEAD CRANE OPERATOR.[employer] Work Phone: [facility] 07-29-2021 09:47-0400 Systolic blood pressure 158 mm[Hg] Mirella Valerio OVERHEAD CRANE OPERATOR.[employer] Work Phone: [facility] Encounters Encounter Date Encounter Type Care Provider Facility Start: 04-25-2023 End: 04-25-2023 ambulatory DARRIN TOLENTINO Facility:[facility] Start: 04-20-2023 End: 04-20-2023 ambulatory DARRIN TOLENTINO Facility:[facility] Start: 04-12-2023 Refill Darrin delgado MD Work Phone: [facility] Procedures Date Procedure Procedure Detail Performing Clinician Start: 09-20-2022 Urnls dip stick/tabl et rgnt auto w/o microscopy Morgan Ramírez PA-C Work Phone: Start: 09-13-2022 Ecg routine ecg w/le ast 12 lds trcg only w/o i&r Tabatha Gonsalves MD Work Phone: Start: 07-21-2022 Ct thorax w/o contra st material Darrin Tolentino MD Work Phone: Start: 09-07-2021 Urnls dip stick/tabl et rgnt auto w/o microscopy [facility] Provider Plan of Treatment Date Care Activity Detail Author Start: 01-06-2030 DTaP/Tdap/Td Vaccine s (3 - Td or Tdap) DTaP/Tdap/Td Vaccines (3 - Td or Tdap) [facility] Start: 01-06-2030 Urine microalbumin profile [facility] Start: 02-23-2026 Diabetes Screening Diabetes Screenin g [facility] Start: 01-11-2026 [facility]ET[facility] Start: 01-11-2026 Diabetes Screening Diabetes Screenin g [facility] Start: 12-15-2025 DIABETES SCREEN [facility] Start: 09-22-2025 DIABETES SCREEN DI[facility] Start: 09-02-2025 DIABETES SCREEN DIABET[facility] Start: 07-10-2025 DIABETES SCREEN DI[facility] Start: 06-22-2025 DIABETES SCREEN [facility] Start: 06-07-2025 DIABETES SCREEN [facility] Start: 05-31-2025 DIABETES SCREEN DIABET[facility]CRE[facility] Start: 03-23-2025 DIABETES SCREEN DIAB[facility] Start: 03-01-2025 DIABETES SCREEN DI[facility] Start: 12-29-2024 DIABETES SCREEN DIAB[facility] Start: 11-19-2024 DIABETES SCREEN [facility] Start: 09-07-2024 DIABETES SCREEN [facility]AB[facility] Start: 08-16-2024 DIABETES SCREEN [facility] Start: 07-13-2024 DIABETES SCREEN DI[facility] Start: 03-14-2024 Covid-19 Vaccine (#1) Covid-19 Vacci ne (#1) [facility] Immunizations Immunization Date Immunization Notes Care Provider Brad quintanilla 02-04-2021 pneumococcal polysaccharide vaccine, 23 valent Mirella Valerio OVERHEAD CRANE OPERATOR.[employer] Work Phone: [facility] 01-07-2020 tetanus toxoid, redu carolin diphtheria toxoid, and acellular pertussis vaccine, adsorbed Mirella Valerio OVERHEAD CRANE OPERATOR.[employer] Work Phone: [facility] 07-19-2017 influenza virus vacc ine, unspecified formulation Morgan Ramírez PA-C Work Phone: [facility] 03-18-2016 influenza, high dose seasonal, preservative-free Mirella Valerio OVERHEAD CRANE OPERATOR.[employer] Work Phone: [facility] 03-18-2016 influenza virus vacc ine, unspecified formulation Dana Ocampo MD Work Phone: [facility] 04-15-2015 influenza, high dose seasonal, preservative-free Mirella Valerio OVERHEAD CRANE OPERATOR.[facility] Work Phone: [facility] Work Phone: 12-26-2014 pneumococcal conjuga te vaccine, 13 valent Mirella Valerio OVERHEAD CRANE OPERATOR.[employer] Work Phone: [facility] 03-27-2014 pneumococcal polysaccharide vaccine, 23 valent Mirella Valerio OVERHEAD CRANE OPERATOR.[employer]PARTMENT [employer] Work Phone: [facility] 03-25-2014 influenza, high dose seasonal, preservative-free Mirella Valerio OVERHEAD CRANE OPERATOR.[facility] Work Phone: [facility] 04-30-2013 influenza virus vacc ine, unspecified formulation Mirella Valerio OVERHEAD CRANE OPERATOR.[employer] Work Phone: [facility] 05-09-2012 pneumococcal polysaccharide vaccine, 23 valent Mirella Valerio OVERHEAD CRANE OPERATOR.[employer]PARTMENT [employer] Work Phone: [facility] 05-02-2012 influenza virus vacc ine, unspecified formulation Mirella Valerio OVERHEAD CRANE OPERATOR.[facility] Work Phone: [facility] 04-10-2007 influenza virus vacc ine, unspecified formulation Mirella Valerio OVERHEAD CRANE OPERATOR.[facility] Work Phone: [facility] Work Phone: 04-10-2007 tetanus toxoid, redu carolin diphtheria toxoid, and acellular pertussis vaccine, adsorbed Mirella Valerio OVERHEAD CRANE OPERATOR.[facility] Work Phone: [facility] Work Phone: Payers Date Payer Category Payer Medicare [employer] MEDICARE [employer] MEDICARE PPO [id number] 2021-[facility] [id number] [place] [id number] PPO [id number] 2019 Medicare [id number] 2004 Medicare [id number] 2004 Medicare [id number] Social History Date Type Detail Facility Start: 03-09-2022 End: 09-02-2022 Tobacco smoking status NHIS Never smoked tobacco [facility] Work Phone: Start: 07-29-2021 End: 03-20-2023 Alcohol intake Current non-drinker of alcohol (finding) [facility] Start: 04-10-2020 End: 04-28-2022 History SDOH Alcohol Frequency 1 [facility] Start: 04-10-2020 History SDOH Alcohol Std Drinks 98 [facility] Start: 09-26-2019 End: 04-28-2022 History SDOH Social Connections Phone 2 [facility] Start: 09-26-2019 End: 04-28-2022 History SDOH Social Connections Scientologist 3 [facility] Start: 09-26-2019 End: 04-28-2022 History SDOH Physical Activity MPS 0 [facility] Start: 04-10-2020 End: 04-28-2022 History SDOH Financial 5 [facility] Start: 09-26-2019 Education 15 [facility] Start: 1940 Sex Assigned At Male [facility] Start: 07-19-2021 End: 09-26-2022 Exposure to SARS-CoV-2 (event) Not sure [facility] Work Phone: Start: 03-09-2022 End: 09-02-2022 Tobacco use and exposure Smokeless tobacco non-user [facility] Start: 09-13-2022 Alcohol intake Ex-drinker (finding) [facility] Start: 1940 Sex Assigned At Not on file [facility] Start: 04-28-2022 End: 09-08-2022 History of Social function [facility] Start: 04-28-2022 End: 09-08-2022 Social connection and isolation panel [facility] Do you belong to any clubs or organizations such as christianity groups, unions, fraternal or athletic groups, or school groups? Yes [facility] Are you now , , , , never or living with a partner? [facility] How often to you hav e a drink containing alcohol? Never [facility] How many standard dr inks containing alcohol do you have on a typical day? Patient does not drink [facility] Do you feel stress - tense, restless, nervous, or anxious, or unable to sleep at night because your mind is troubled all the time - these days [OSQ] Only a little [facility] (I/We) worried wheth er (my/our) food would run out before (I/we) got money to buy more. Never true [facility] In the past 12 month s, was there a time when you were not able to pay the mortgage or rent on time? No [facility] Start: 02-25-2020 Gender identity Identifies as male gender (finding) [facility] Start: 02-25-2020 Sexual orientation Heterosexual (finding) [facility] Medical Equipment Procedure Code Equipment Code Equipment Origin al Text Equipment Identifier Dates Mesh Srg Pariete x 6x6in Leanne - [id number] Start: 05-28-2013 Lesvia 3 Ultra Transcatheter Heart Valve 26 [id number] Start: 09-26-2022 Clinical Notes 02-15-2017 to 04-25-2023 Telephone Encounter - Darrin Tolentino MD - 04/12/2023 8:29 PM ESTTelephone Encounter - Ro Shirley - 04/12/2023 9:36 AM ESTTelephone Encounter - Marci Rehman LPN - 03/24/2023 9:37 AM EST Note Date & Type Note Facility 04-25-2023 Note HNO ID: [id number] Author: Roma Morris LPN Service: ? Author Type: ? Type: Progress Notes Filed: 04/25/2023 5:38 PM Note Text: Scan on 04/25/2023 1:59 PM by ProviderYancy PA-C: X-ray Scan on 04/25/2023 1:56 PM by Provider, Yancy, PA-C: X-ray [facility] 04-25-2023 Note [facility] 04-25-2023 Note [facility] 04-12-2023 Miscellaneous Notes Please let patient know both his atorvastatin and losartan are prescribed by his attendant honor bar. Requested Prescriptions Pending Prescriptions Disp Refills atorvastatin (LIPITOR) 40 mg tablet Si tablet once daily. losartan (COZAAR) 50 mg tablet Sig: Take 1 tablet by mouth once daily. Per cardio [facility] 03/14/2023 NOV 09/12/2023 Ro Shirley MA documented in this encounter [facility] 03-24-2023 Miscellaneous Notes Spoke with pt's and advised her we have not received anything. She will check into this and let us know later. Marci Rehman LPN Left message for patient to contact office. Leatha Beltran MA We have not received any documents as of this date. Leatha Beltran MA Pt asking if office received any SNP forms form Human? She would like call back. Tania Molina Ma documented in this encounter [facility] 03-20-2023 Nurse Note Patient presents with complaints with catheter leaking and coming appart. Patient catheter was stretched and was not holding the bag well. Patient informed that catheter would be changed as it had been in over a month anyway. Catheter removed and new 20 bermudian coude catheter placed to gravity drainage balloon inflated without difficulty and catheter was flushed with sterile water. It was explained to patient to contact office if any difficulties and that we would make sure a doctor was present to insert with a guidewire. documented in this encounter [facility] 03-14-2023 Note [facility] 03-14-2023 Instructions Darrin Tolentino MD - 03/14/2023 11:57 AM EST Consider getting the shingrix vaccine for the prevention of shingles from a local pharmacy. If you want the RSV vaccine you also have to get it at the pharmacy. Try to get back on the 5000 international unit(s) Vit D once a day. See if your taking the atorvastatin (Lipitor) at 40 mg a day or less. Please get labs and urine test done on or after 09/01/2023 prior to your next visit. documented in this encounter 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 BENIGN HYPERTENSION 10/17/2005 Bone metastases (HCC) 12/16/2020 Diverticulosis of colon 02/25/2009 Erectile dysfunction due to arterial insufficiency 04/15/2015 Functional diarrhea 01/14/2009 Gastroesophageal reflux disease with esophagitis without hemorrhage 08/04/2020 History of kidney stones 10/28/2011 Hypertrophy of prostate without urinary obstruction and other lower urinary tract symptoms (LUTS) Lung nodule seen on imaging study 01/02/2019 12/31/19 CT chest WO: stable nodules, largest 8mm: 1 year f/u 09/27/18 CT chest IVCON: multiple bilateral, largest 8mm right mid lung following CXRs 08/21/18 atelectasis vs infltrate, 09/13/18 lung nodule Medicare annual wellness visit, subsequent 02/04/2021 Medicare Part B: Last done: 02/04/2021 Mixed hyperlipidemia 10/28/2011 Prostate cancer (HCC) 04/27/2017 Right inguinal hernia Vitamin D deficiency 01/07/2020 PAST SURGICAL HISTORY PAST SURGICAL HISTORY Procedure Laterality Date AMPUTATION TOE,MT-P JT Left 04/2020 second toe-Dr. Lai CARPAL TUNNEL Right 05/18/2018 Dr. Oliver Devlin COLONOSCOPY W/BX 02/25/2009 KNEE SCOPE,DIAGNOSTIC 08/2003 Arthroscopy, knee, meniscus LAP REPAIR INTIAL INGUINAL HERNIA 05/28/2013 Right PAST SURGICAL HISTORY OF Left inguninal hernia repair REMOVAL OF TONSILS,<11 Y/O Tonsillectomy and adnoids TOTAL KNEE REPLACEMENT 03/25/2014 left TKR, Dr. Posada ALLERGIES: Patient has no known allergies. Medications reviewed: Yes FAMILY HISTORY FAMILY HISTORY Problem Relation Age of Onset other (MACULAR DEGENERATION) Mother other (CHF) Father SOCIAL HISTORY: SOCIAL HISTORY Social History Tobacco Use Smoking status: Never Smoker Smokeless tobacco: Never Used Vaping Use Vaping Use: Never used Substance Use Topics Alcohol use: No Drug use: No Morris denies regular aerobic exercise. He watches his diet for sodium, low fat and low cholesterol most of the time. List of current specialists seen: Dr. Dixon (Oncol), Dr. Koroma (Urology) End of Live Planning discussed including patients advanced directive wishes: Yes I am willing to follow Morris's advanced directives. PHQ-2 / Depression screen Not at risk Functional Ability/Safety Screen 1. Was the patient's timed Up and Go test unsteady or longer than 30 seconds? No 2. Does the patient need help with the phone, transportation, shopping,preparing meals, housework, laundry, medications or managing money? No 3. Does your home have rugs in the hallway, lack of grab bars in the bathroom, lack of handrails on the stairs or have poor lighting? No Hearing Evaluation: hard of hearing and wears hearing aids PHYSICAL EXAM BP 142/72 (BP Site: Left Arm, BP Position: Sitting, BP Cuff Size: Large Adult) Pulse 76 Resp 16 Wt 113.9 kg (251 lb) BMI 36.01 kg/m Alert and oriented X 3: YES Body mass index is 36.01 kg/m . Visual acuity: see Optho See below ASSESSMENT/PLAN: 82 year old male The following prevention plan was discussed during the office visit and provided to the patient: See below Darrin Tolentino MD Chief Complaint Patient presents with: Medicare Wellness Exam HPI Morris Baez is a 82 year old male who presents here today for Chronic Medical Conditions. and Medicare Annual Visit. Any Concerns today? Possible UTI; some discomfort; has a cath; discharge around the cath x 1 week. Patient has not contact Urology. indicated that he a few wholes in his Urthrea that has not healed. Suppose to have an appointment for Hyperbaric Oxygen treatment. Patient also noticed that he is more unsteady. No dizziness. Please review labs. No result note. Patient has been [facility]. 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 His hands have been tingling. Has been dropping things and can't button his shirts. Past medical history, appointments, medications, allergies reviewed. 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 BENIGN HYPERTENSION 10/17/2005 Blood in urine cauterized the bladder Bone metastases 12/16/2020 Diverticulosis of colon 02/25/2009 Elevated prostate specific antigen (PSA) 02/10/2017 Erectile dysfunction due to arterial insufficiency 04/15/2015 Functional diarrhea 01/14/2009 Gastroesophageal reflux disease with esophagitis without hemorrhage 08/04/2020 History of kidney stones 10/28/2011 04/21/2022 Hypertrophy of prostate without urinary obstruction and other lower urinary tract symptoms (LUTS) Lipoma of left upper extremity 02/04/[address] 03/10/2022 DPA: Cheryl () Lung nodule seen on imaging study 01/02/2019 12/31/19 CT chest WO: stable nodules, largest 8mm: 1 year f/u 09/27/18 CT chest IVCON: multiple bilateral, largest 8mm right mid lung following CXRs 08/21/18 atelectasis vs infltrate, 09/13/18 lung nodule Medicare annual wellness visit, subsequent 02/04/2021 Medicare Part B: Last done: 02/04/2021 Mixed hyperlipidemia 10/28/2011 Nonrheumatic aortic valve stenosis 08/12/2021 2020: Mild-Mod. Prostate cancer (HCC) 04/27/2017 Right inguinal hernia Vitamin D deficiency 01/07/2020 Previous Surgical History PAST SURGICAL HISTORY Procedure Laterality Date 2D ECHO (EXEP) 02/09/2021 EF=55%, Mod LVH, 1-2+ , mild dyast dysf AMPUTATION TOE,MT-P JT Left 04/2020 second toe-Dr. Lai ARTHROSCOPY KNEE DIAGNOSTIC W/WO SYNOVIAL BX SPX 08/2003 Arthroscopy, knee, meniscus CARPAL TUNNEL Right 05/18/2018 Dr. Oliver Devlin COLONOSCOPY W/BIOPSY SINGLE/MULTIPLE 02/25/2009 INCISE/DRAIN BLADDER cauterized the bladder LAPAROSCOPY SURG RPR INITIAL INGUINAL HERNIA 05/28/2013 Right PAST SURGICAL HISTORY OF Left inguninal hernia repair REMV CATARACT EXTRACAP,INSERT LENS Bilateral 2021 TONSILLECTOMY PRIMARY/SECONDARY <AGE 11 Tonsillectomy and adnoids TOTAL KNEE REPLACEMENT 03/25/2014 left TKR, Dr. Posada TOTAL KNEE REPLACEMENT Right 03/19/2021 Family History FAMILY HISTORY Problem Relation Age of Onset other (MACULAR DEGENERATION) Mother other (CHF) Father Patient Allergies ALLERGIES Allergen Reactions Norvasc [Amlodipine] Other: See Comments Leg edema Current Medications Current Outpatient Medications on File Prior to Visit Medication Sig furosemide (LASIX) 20 mg tablet Take 2 tablets by mouth once daily. Lactobacillus acidophilus (ACIDOPHILUS ORAL) Take by mouth. aspirin, enteric coated (ASPIRIN, ENTERIC COATED) 81 mg EC tablet Take 1 tablet by mouth once daily. (Patient not taking: Reported on 02/23/2023) atorvastatin (LIPITOR) 40 mg tablet 1 tablet once daily. losartan (COZAAR) 50 mg tablet Take 1 tablet by mouth once daily. Per cardio ferrous sulfate (IRON) 325 mg (65 mg iron) tablet Take 325 mg by mouth once daily. tamsulosin (FLOMAX) 0.4 mg Take 1 capsule by mouth once daily. Per Urology Dr. Morejon metoprolol succinate ER (TOPROL XL) 50 mg 24 hr tablet Take 1 tablet by mouth once daily. Increased by cardio 07/2022 Omeprazole Magnesium (PRILOSEC OTC) 20 mg tablet Take 1 tablet by mouth daily before breakfast. 1/2 hr before meal. ketoconazole (NIZORAL) 2 % shampoo Apply to affected area two times a week. finasteride (PROSCAR) 5 mg tablet Take 5 mg by mouth once daily. Cholecalciferol, Vitamin D3, 125 mcg (5,000 unit) cap Take 1 capsule by mouth once daily. MV with Krl-Ebsnyllk-Pphpmp (CENTRUM SILVER) 0.4-300-250 mg-mcg-mcg tab Take 1 tablet by mouth once daily. Blood Pressure Monitor (BLOOD PRESSURE KIT) 1 Each twice daily. (Patient not taking: Reported on 09/20/2022) No current facility-administered medications on file prior to visit. Social History Social History Tobacco Use Smoking status: Never Smokeless tobacco: Never Vaping Use Vaping Use: Never used Substance Use Topics Alcohol use: No Drug use: No Review of Symptoms REVIEW OF SYSTEMS GENERAL: No weight loss, malaise or fevers HEENT: has been getting some frontal headaches.No changes in hearing or vision, no nose bleeds or other nasal problems. No nasal drainage. NECK: Negative for lumps, goiter, pain and significant neck swelling RESPIRATORY: Negative for cough, hemoptysis, COPD, dyspnea or shortness of breath. No increased wheezing CARDIOVASCULAR: Negative for chest pain, leg swelling, hypertension, CHF or palpitations GI: No nausea, vomiting, or diarrhea, No heartburn or reflux symptoms, and no blood : has a lcokwood in place MUSCULOSKELETAL: Negative for joint pain or swelling, back pain or muscle pain SKIN: has a mole on the right side of neck he wants looked at. PSYCH: Negative for sleep disturbance, mood disorder and recent psychosocial stressors HEMATOLOGY/LYMPHOLOGY: Negative for prolonged bleeding, bruising easily or swollen nodes ENDOCRINE: Negative for cold or heat intolerance, polyuria, polydipsia and goiter NEURO: No history of syncope, paralysis, seizures or tremors EXAM: BP 140/70 Pulse 76 Resp 16 Wt 113.9 kg (251 lb) BMI 36.01 kg/m Last 4 Encounter Wt Readings: Date: Wt: 03/14/2023 113.9 kg (251 lb) 02/10/2023 113.9 kg (251 lb 3.2 oz) 02/08/2023 112.5 kg (248 lb) 01/10/2023 114.3 kg (252 lb) General Appearance: Well appearing, alert, in no acute distress, well-hydrated, well nourished.. Skin: Skin color, texture, turgor normal, no suspicious rashes or lesions. Head: Normocephalic, no masses, lesions, tenderness or abnormalities. Eyes: Anicteric sclera. Pupils are equally round and reactive to light. Extraocular movements are intact. . Ears: External ears, TM's normal, canals clear. Nose/Sinuses: Nares normal, septum midline, mucosa normal, no drainage or sinus tenderness. Oropharynx: Lips, mucosa, and tongue normal, teeth and gums normal, oropharynx normal. Neck: Supple, no adenopathy; thyroid symmetric, normal size, no bruits. Lungs: Lungs clear to auscultation. No wheezing, rhonchi, rales.. Heart: RRR without gallop, or rubs. No ectopy. 2/6 EDUARDO Abdomen: Normal abdominal exam, Abdomen soft, non-tender. Bowel sounds normal. No masses, organomegaly. Extremities: No deformities, skin discoloration, Good capillary refill. . 1+ pitting edema Musculoskeletal: Muscular strength intact, No joint swelling, deformity, or tenderness. Tinel's and Phalen's were neg Peripheral Pulses: Normal. Neurologic: Gait normal. . Sensation to light touch and crainal nerves 2-12 intact.. Health Maintenance List Covid-19 Vaccine(1) Never done Shingrix Vaccine(1 of 2) Never done RSV Vaccine(1 - 1-dose 60+ series) Never done Advance Directive Discussion due on 05/08/2022 Influenza Vaccine(1) due on 11/05/2023 Diabetes Screening due on 02/23/2026 DTaP,Tdap,Td Vaccine(3 - Td or Tdap) due on 01/06/2030 Depression Assessment Completed Pneumococcal Vaccine: 65+ Completed HPV Vaccine Aged Out Colonoscopy Discontinued Data reviewed Component Latest Ref Rng & Units 12/29/2021 03/01/2022 02/23/2023 WBC 3.70 - 11.00 k/uL 6.59 7.53 RBC 4.20 - 6.00 m/uL 4.12 (L) 4.23 Hemoglobin 13.0 - 17.0 g/dL 12.3 (L) 11.6 (L) Hematocrit 39.0 - 51.0 % 37.2 (L) 36.1 (L) MCV 80.0 - 100.0 fL 90.3 85.3 MCH 26.0 - 34.0 pg 29.9 27.4 MCHC 30.5 - 36.0 g/dL 33.1 32.1 RDW-CV 11.5 - 15.0 % 12.7 13.7 Platelet Count 150 - 400 k/uL 245 273 MPV 9.0 - 12.7 fL 9.8 9.0 Neut% % 51.6 52.9 Abs Neut (ANC) 1.45 - 7.50 k/uL 3.40 3.99 Lymph% % 29.3 23.4 Abs Lymph 1.00 - 4.00 k/uL 1.93 1.76 [place]% % 12.0 13.3 Abs [place] <0.87 k/uL 0.79 1.00 (H) Eosin% % 5.9 9.3 Abs Eosin <0.46 k/uL 0.39 0.70 (H) Baso% % 0.9 0.7 Abs Baso <0.11 k/uL 0.06 0.05 Immature Gran % % 0.3 0.4 IMMATURE GRANS (ABS) <0.10 k/uL <0.03 0.03 NRBC /100 WBC 0.0 0.0 Absolute nRBC <0.01 k/uL <0.01 <0.01 DTYPE Auto Auto Color Yellow Light Yellow Yellow Clarity Clear Cloudy (A) Turbid (A) Glucose, Urine Negative Negative Negative Bilirubin, Urine Negative Negative Negative Ketones, Urine Negative Negative Negative Specific [place], Ur 1.005 - 1.030 1.014 1.022 Hemoglobin/Blood,Ur Negative Negative 3+ (A) pH, Urine <8.5 7.0 5.5 Protein, Urine Negative Negative 3+ (A) Urobilinogen 0.2-1.0 EU/dL Negative 0.2 EU/dL Nitrites Negative Negative Negative Leukest Negative Negative 2+ (A) WBC, Urine 0-5 /HPF 0-5 /HPF >20 /HPF (A) RBC, Urine 0-2 /HPF 3-5 /HPF (A) >20 /HPF (A) Bacteria Negative /HPF Negative Epithelial Cells /HPF None Seen Hyaline Cast 0 /LPF 4-10 /LPF (A) Protein, Total 6.3 - 8.0 g/dL 7.9 7.9 Albumin 3.9 - 4.9 g/dL 4.2 3.9 Calcium 8.5 - 10.2 mg/dL 9.9 9.4 Bilirubin, Total 0.2 - 1.3 mg/dL 0.8 0.6 Alkaline Phosphatase 38 - 113 U/L 75 83 AST 14 - 40 U/L 24 27 ALT 10 - 54 U/L 15 12 Glucose 74 - 99 mg/dL 94 102 (H) BUN 9 - 24 mg/dL 16 24 Creatinine 0.73 - 1.22 mg/dL 0.73 1.08 Sodium 136 - 144 mmol/L 137 135 (L) Potassium 3.7 - 5.1 mmol/L 4.0 4.1 Chloride 97 - 105 mmol/L 101 103 CO2 22 - 30 mmol/L 28 21 (L) Anion Gap 9 - 18 mmol/L 8 (L) 11 eGFR >=60 mL/min/1.73m 91 68 Total Cholesterol, Nonfasting <200 mg/dL 219 (H) 241 (H) Triglycerides, Nonfasting <150 mg/dL 200 (H) 176 (H) HDL Cholesterol, Nonfasting >39 mg/dL 42 44 LDL Cholesterol, Nonfasting <100 mg/dL 137 (H) 162 (H) Non HDL Cholesterol, Nonfasting <130 mg/dL 177 (H) 197 (H) VLDL Cholesterol, Nonfasting <30 mg/dL 40 (H) 35 (H) Total Chol/HDL Ratio, Nonfasting <5.10 mg/dL 5.21 (H) 5.48 (H) LDL/HDL Ratio, Nonfasting <2.54 mg/dL 3.26 (H) 3.68 (H) PSA <2.60 ng/mL 0.13 Vitamin B12 232 - 1,245 pg/mL 377 379 Vitamin D 25 Hydroxy 31.0 - 80.0 ng/mL 34.6 29.3 (L) Magnesium 1.7 - 2.3 mg/dL 2.0 1.9 A/P ASSESSMENT/PLAN: 1. Medicare annual wellness visit, subsequent - ICD9: V70.0, ICD10: Z00.00 (primary diagnosis) - Counseled on healthy diet and regular exercise - Discussed need for and benefit of weight loss. BMI 36.01 kg/(m^2) - Follow up for annual exam in one year 2. Essential hypertension, benign - ICD9: 401.1, ICD10: I10 - Controlled - Continue current medications - Recommend home blood pressure monitoring, to bring results to next visit - Encouraged sodium restriction, DASH or Mediterranean diet - Recommend regular aerobic exercise 3. Mixed hyperlipidemia - ICD9: 272.2, ICD10: E78.2 - Uncontrolled - Continue current medications - Counseled on healthy diet and regular exercise 4. Gastroesophageal reflux disease with esophagitis without hemorrhage - ICD9: 530.81, 530.10, ICD10: K21.00 - Continue treatment with Prilosec 20 mg QD 5. Nonrheumatic aortic valve stenosis - ICD9: 424.1, ICD10: I35.0 - clinically stable and sees Cardio for management 6. Bilateral leg edema - ICD9: 782.3, ICD10: R60.0 - stable no changes. 7. Prostate cancer (HCC) - ICD9: 185, ICD10: C61 - seeing Urology 8. Malignant neoplasm metastatic to bone (HCC) - ICD9: 198.5, ICD10: C79.51 - seeing oncology 9. Vitamin D deficiency - ICD9: 268.9, ICD10: E55.9 - patient to get back to 5000 international unit(s) of Vit D a day 10. Advance directive discussed with patient - ICD9: V65.49, ICD10: Z71.89 - up to date 11. Numbness and tingling in both hands - ICD9: 782.0, ICD10: R20.0, R20.2 - will check NCS, EMG studies at [facility] 12. Lipoma of left upper extremity - ICD9: 214.8, ICD10: D17.22 - stable no issues 13. Balance problem - ICD9: 781.99, ICD10: R26.89 - discussed PHYSICAL THERAPY but patient declined at this time. Requested Prescriptions Signed Prescriptions Disp Refills ketoconazole (NIZORAL) 2 % shampoo 120 mL 1 Sig: Apply to affected area two times a week. F/u 6 months routine check Lipid, LFT's and Vit D prior I spent a total of 40 minutes on the date of the service which included preparing to see the patient, [id number] patient care, completing clinical documentation, performing a medically appropriate examination, counseling and educating the patient/family/caregiver and ordering medications, tests, or procedures. Patient was asked at end of visit if they had any questions or input regarding the plan of care we had discussed. Darrin Tolentino MD documented in this encounter [facility] 02-27-2023 Miscellaneous Notes 3 rd attempt to call patient. Mailbox is full and unable to leave a message. documented in this encounter [facility] 02-27-2023 Miscellaneous Notes I called and left a message for Talya in Dr. Koroma's office ([phone]). I'm unable to leave a message for patient as his mailbox is full. I've attempted 2 times. documented in this encounter [facility] 02-27-2023 Miscellaneous Notes 2nd attempt to call patient. Unable to reach on cell phone. Voice mailbox is full. documented in this encounter [facility] 02-23-2023 Note [facility] 02-23-2023 Nurse Note Lupron injection administered, left buttock,tolerated well, no immediate adverse reactions noted. See office notes. Rosa Isela Ortiz LPN documented in this encounter [facility] 02-23-2023 History of Presen t illness Narrative (Elements copied from my note dated December 15, 2022, have been reviewed and updated where appropriate, and all reflect current assessment and medical decision making from today's encounter, February 23, 2023) HISTORY OF PRESENT ILLNESS: Morris Baez is a 82 [address] Per Dr. Nugent's previous note: H/o diagnosis of localized prostatic cancer in 2017. He underwent some limited hormone therapy in the form of Lupron and radiation. PSA remains very low for several months. However Lupron was resumed when PSA started to go up and around 5. Zytiga and prednisone were added when PSA on each peak of 16. Fluvicione PET scan was done at the time and showed a solitary T12 metastasis. Subsequently an MRI of the T-spine did not show any mass or malignant looking lesion. Review of chart, looks like biochemical recurrence only. Current therapy:Lupron, xtandi was stopped in November 2022 Here for follow up, doing ok, neuropathy unchanged. Has been off of Xtandi since November, I was not aware he stopped it prior to my last visit with him. CLINICAL IMPRESSION: Prostate cancer with biochemical relapse PSA currently down RECOMMENDATION/PLAN: 1. Continue lupron, continue to hold xtandi , plan to resume if PSA shows increase 2. See back with next lupron. Written and verbal health teaching given to patient, patient verbalizes understanding and agrees with treatment plan. 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 BENIGN HYPERTENSION 10/17/2005 Blood in urine cauterized the bladder Bone metastases 12/16/2020 Diverticulosis of colon 02/25/2009 Elevated prostate specific antigen (PSA) 02/10/2017 Erectile dysfunction due to arterial insufficiency 04/15/2015 Functional diarrhea 01/14/2009 Gastroesophageal reflux disease with esophagitis without hemorrhage 08/04/2020 History of kidney stones 10/28/2011 04/21/2022 Hypertrophy of prostate without urinary obstruction and other lower urinary tract symptoms (LUTS) Lipoma of left upper extremity 02/04/[address] 03/10/2022 DPA: Cheryl () Lung nodule seen on imaging study 01/02/2019 12/31/19 CT chest WO: stable nodules, largest 8mm: 1 year f/u 09/27/18 CT chest IVCON: multiple bilateral, largest 8mm right mid lung following CXRs 08/21/18 atelectasis vs infltrate, 09/13/18 lung nodule Medicare annual wellness visit, subsequent 02/04/2021 Medicare Part B: Last done: 02/04/2021 Mixed hyperlipidemia 10/28/2011 Nonrheumatic aortic valve stenosis 08/12/2021 2020: Mild-Mod. Prostate cancer (HCC) 04/27/2017 Right inguinal hernia Vitamin D deficiency 01/07/2020 PAST SURGICAL HISTORY Procedure Laterality Date 2D ECHO (EXEP) 02/09/2021 EF=55%, Mod LVH, 1-2+ , mild dyast dysf AMPUTATION TOE,MT-P JT Left 04/2020 second toe-Dr. Lai ARTHROSCOPY KNEE DIAGNOSTIC W/WO SYNOVIAL BX SPX 08/2003 Arthroscopy, knee, meniscus CARPAL TUNNEL Right 05/18/2018 Dr. Oliver Devlin COLONOSCOPY W/BIOPSY SINGLE/MULTIPLE 02/25/2009 INCISE/DRAIN BLADDER cauterized the bladder LAPAROSCOPY SURG RPR INITIAL INGUINAL HERNIA 05/28/2013 Right PAST SURGICAL HISTORY OF Left inguninal hernia repair REMV CATARACT EXTRACAP,INSERT LENS Bilateral 2021 TONSILLECTOMY PRIMARY/SECONDARY <AGE 11 Tonsillectomy and adnoids TOTAL KNEE REPLACEMENT 03/25/2014 left TKR, Dr. Posada TOTAL KNEE REPLACEMENT Right 03/19/2021 FAMILY HISTORY Problem Relation Age of Onset other (MACULAR DEGENERATION) Mother other (CHF) Father Social History Tobacco Use Smoking status: Never Smokeless tobacco: Never Vaping Use Vaping Use: Never used Substance Use Topics Alcohol use: No Drug use: No ALLERGIES: ALLERGIES Allergen Reactions Norvasc [Amlodipine] Other: See Comments Leg edema CURRENT OUTPATIENT MEDICATIONS: Lactobacillus acidophilus (ACIDOPHILUS ORAL) Take by mouth. aspirin, enteric coated (ASPIRIN, ENTERIC COATED) 81 mg EC tablet Take 1 tablet by mouth once daily. atorvastatin (LIPITOR) 40 mg tablet 1 tablet once daily. losartan (COZAAR) 50 mg tablet Take 1 tablet by mouth once daily. Per cardio ferrous sulfate (IRON) 325 mg (65 mg iron) tablet Take 325 mg by mouth once daily. furosemide (LASIX) 20 mg tablet Take 2 tablets by mouth once daily. tamsulosin (FLOMAX) 0.4 mg Take 1 capsule by mouth once daily. Per Urology Dr. Morejon metoprolol succinate ER (TOPROL XL) 50 mg 24 hr tablet Take 1 tablet by mouth once daily. Increased by cardio 07/2022 Omeprazole Magnesium (PRILOSEC OTC) 20 mg tablet Take 1 tablet by mouth daily before breakfast. 1/2 hr before meal. ketoconazole (NIZORAL) 2 % shampoo Apply to affected area two times a week. finasteride (PROSCAR) 5 mg tablet Take 5 mg by mouth once daily. Cholecalciferol, Vitamin D3, 125 mcg (5,000 unit) cap Take 1 capsule by mouth once daily. MV with Yvx-Hnvvdzgw-Vfwcuo (CENTRUM SILVER) 0.4-300-250 mg-mcg-mcg tab Take 1 tablet by mouth once daily. Blood Pressure Monitor (BLOOD PRESSURE KIT) 1 Each twice daily. (Patient not taking: Reported on 09/20/2022) REVIEW OF SYSTEMS: GENERAL: No fever, night sweats, weight loss or malaise. All other reviewed and negative other than HPI. PHYSICAL EXAMINATION: VITAL SIGNS: There were no vitals taken for this visit. GENERAL APPEARANCE: Well appearing, in no acute distress, alert and oriented x3, well-hydrated, well nourished. I spent a total of 30 minutes on the date of the service which included preparing to see the patient, [id number] patient care, completing clinical documentation, obtaining and/or reviewing separately obtained history, counseling and educating the patient/family/caregiver, ordering medications, tests, or procedures, independently interpreting results (not separately reported), and communicating results to the patient/family/caregiver. Electronically Signed: Jude Tam MD February 23, 2023 documented in this encounter [facility] 02-22-2023 Note HNO ID: [id number] Author: Benson Koroma MD Service: ? Author Type: Physician Type: Progress Notes Filed: 02/22/2023 3:39 PM Note Text: Consultation requested by Dr. Darrin Tolentino MD for an opinion regarding Patient presents with: Cystoscopy-1: Had a catheter placed in December for urinary retention and blood clots. Catheter was last changed 01/08/2023. . My final recommendations will be communicated back to the requesting physician by way of shared Medical record or letter to requesting physician via [place] mail. HISTORY OF PRESENT ILLNESS: Morris Baez is a 82 year old male who complains of prostate cancer, gross hematuria and clot retention He had a Lockwood catheter on and off since April 2022. He typically is able to void spontaneously. Unfortunately, however recurrent episodes of hematuria, subsequent clot retention HPI 1-Duration: Months 2-Location: Bladder and prostate 3-Severity: Severe 4-Quality: 5-Context: 6-Timin-Modifying factors: 8-Associated signs AND symptoms: None Medications/allergies reviewed and updated. PSA (ng/mL) Date Value 12/15/2022 0.07 09/22/2022 0.13 09/02/2022 0.16 06/22/2022 0.12 03/23/2022 0.14 12/29/2021 0.13 11/19/2021 0.16 09/07/2021 0.17 06/15/2021 0.38 02/08/2021 0.99 11/18/2020 5.01 07/14/2020 3.54 01/02/2020 2.44 10/05/2018 0.23 04/02/2018 0.26 10/05/2017 0.10 04/27/2017 16.22 02/06/2017 16.69 Creatinine Date Value Ref Range Status 01/11/2023 0.96 0.73 - 1.22 mg/dL Final 12/15/2022 0.99 0.73 - 1.22 mg/dL Final 09/22/2022 0.85 0.73 - 1.22 mg/dL Final 09/02/2022 0.85 0.73 - 1.22 mg/dL Final GLUCOSE UA (POCT) Negative 11/07/2022 BILIRUBIN UA (POCT) Negative 11/07/2022 KETONE UA (POCT) Negative 11/07/2022 SPECIFIC GRAVITY UA (POCT) 1.015 11/07/2022 HEMOGLOBIN/BLOOD UA (POCT) Large 11/07/2022 PH UA (POCT) 5.5 11/07/2022 PROTEIN UA (POCT) >=300 11/07/2022 UROBILINOGEN UA (POCT) 0.2 11/07/2022 NITRITE UA (POCT) Negative 11/07/2022 LEUKOCYTES UA (POCT) Large 11/07/2022 COLOR UA (POCT) Yellow 11/07/2022 CLARITY UA (POCT) Cloudy 11/07/2022 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 BENIGN HYPERTENSION 10/17/2005 Blood in urine cauterized the bladder Bone metastases 12/16/2020 Diverticulosis of colon 02/25/2009 Elevated prostate specific antigen (PSA) 02/10/2017 Erectile dysfunction due to arterial insufficiency 04/15/2015 Functional diarrhea 01/14/2009 Gastroesophageal reflux disease with esophagitis without hemorrhage 08/04/2020 History of kidney stones 10/28/2011 04/21/2022 Hypertrophy of prostate without urinary obstruction and other lower urinary tract symptoms (LUTS) Lipoma of left upper extremity 02/04/[address] 03/10/2022 DPA: Cheryl () Lung nodule seen on imaging study 01/02/2019 12/31/19 CT chest WO: stable nodules, largest 8mm: 1 year f/u 09/27/18 CT chest IVCON: multiple bilateral, largest 8mm right mid lung following CXRs 08/21/18 atelectasis vs infltrate, 09/13/18 lung nodule Medicare annual wellness visit, subsequent 02/04/2021 Medicare Part B: Last done: 02/04/2021 Mixed hyperlipidemia 10/28/2011 Nonrheumatic aortic valve stenosis 08/12/2021 2020: Mild-Mod. Prostate cancer (HCC) 04/27/2017 Right inguinal hernia Vitamin D deficiency 01/07/2020 PAST SURGICAL HISTORY Procedure Laterality Date 2D ECHO (EXEP) 02/09/2021 EF=55%, Mod LVH, 1-2+ , mild dyast dysf AMPUTATION TOE,MT-P JT Left 04/2020 second toe-Dr. Lai ARTHROSCOPY KNEE DIAGNOSTIC W/WO SYNOVIAL BX SPX 08/2003 Arthroscopy, knee, meniscus CARPAL TUNNEL Right 05/18/2018 Dr. Oliver Devlin COLONOSCOPY W/BIOPSY SINGLE/MULTIPLE 02/25/2009 INCISE/DRAIN BLADDER cauterized the bladder LAPAROSCOPY SURG RPR INITIAL INGUINAL HERNIA 05/28/2013 Right PAST SURGICAL HISTORY OF Left inguninal hernia repair REMV CATARACT EXTRACAP,INSERT LENS Bilateral 2021 TONSILLECTOMY PRIMARY/SECONDARY Tonsillectomy and adnoids TOTAL KNEE REPLACEMENT 03/25/2014 left TKR, Dr. Posada TOTAL KNEE REPLACEMENT Right 03/19/2021 FAMILY HISTORY Problem Relation Age of Onset other (MACULAR DEGENERATION) Mother other (CHF) Father Social History Tobacco Use Smoking status: Never Smokeless tobacco: Never Vaping Use Vaping Use: Never used Substance Use Topics Alcohol use: No Drug use: No ALLERGIES: ALLERGIES Allergen Reactions Norvasc [Amlodipine] Other: See Comments Leg edema CURRENT OUTPATIENT MEDICATIONS: Lactobacillus acidophilus (ACIDOPHILUS ORAL)Take by mouth.Disp: Rfl: atorvastatin (LIPITOR) 40 mg tablet1 tablet once daily.Disp: Rfl: losartan (COZAAR) 50 mg tabletTake 1 tablet by mouth once daily. Per cardioDisp: Rfl: ferrous sulfate (IRON) 325 mg (65 (more content not included)... [facility] 02-22-2023 Note HNO ID: [id number] Author: Benson Koroma MD Service: ? Author Type: Physician Type: Procedures Filed: 02/22/2023 3:39 PM Note Text: CYSTOSCOPY PROCEDURE NOTE : Morris Baez is a 82 year old male who presents with Hematuria gross for cystoscopy. PRE-OP/PRE-PROCEDURE DIAGNOSIS: Prostate cancer, gross hematuria, clot retention POST-OP/POST-PROCEDURE DIAGNOSIS: Prostate cancer, gross hematuria, clot retention SURGERY/PROCEDURE(S): Cystoscopy, complex Lockwood catheter change Pt ID verified with patient: Yes Procedure verified with patient: Yes Procedure confirmed with physician and application support developer: Yes UNIVERSAL PROTOCOL / SAFETY CHECKLIST Procedure to be Performed: Cystoscopy, complex Lockwood catheter change Sign In: A Moment of CARE was completed. Personnel directly involved with the procedure wore the appropriate PPE (Personal Protective Equipment). Patient/Surrogate Stated/Verified: PATIENT VERIFIED(optional for EMERGENT procedures): Patient name, Date of , Relevant allergies, and The intended procedure Time Out Communication: Intended patient and procedure match the source documents. Consent documented and matches the intended procedure. Sign Out: SIGN OUT (optional for EMERGENT procedures): No specimen collected. Benson Koroma MD A urinalysis was performed revealing no evidence of infection. The benefits, risks, alternatives of the cystoscopy procedure and personnel were discussed with the patient. The verbal consent was obtained and the patient agrees to proceed. Procedure: The patient was placed on the procedure table in the supine position and prepped and draped in the usual sterile fashion. 2% Lidocaine Jelly was placed per urethra as an anesthetic in the standard fashion. Once adequate local anesthesia was achieved, the tip of the flexible cystoscope was carefully placed into the urethra under direct visual guidance. The scope was negotiated through the pendulous urethra to the level of the bulbar urethra with no evidence of stricture. The verumontanum came into view and the scope was negotiated through the prostatic urethra which showed Ultiva false passages.. The bladder was entered and careful meza endoscopy was carried out. The bladder lining was difficult to visualize secondary to gross hematuria. There were no obvious tumors nor stones. A 0.35 Glidewire was placed through the working channel of the flexible cystoscope into the bladder. Using exchange technique a 20 Palauan caddo tip catheter was placed into the bladder and filled with 10 cc in the balloon. The catheter was then irrigated to clear Patient was given standard post-procedure instructions, and was directed to complete the course of oral antibiotics and increase oral fluid intake as directed. 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 I recommended hyperbaric oxygen. To avoid complications of hematuria, clot retention and his false passages I have elected to replace his Lockwood catheter with a caddo tip catheter. Future catheter changes should be placed with a Glidewire. He can consider suprapubic tube in the future if this becomes a chronic issue Benson Koroma MD Electronically Signed: Benson Koroma MD February 22, 2023 3:11 PM This note was partially created using voice recognition software and is inherently subject to errors including those of syntax and sound-alike substitutions which may escape proofreading. In such instances, original meaning may be extrapolated by contextual derivation. [facility] 02-22-2023 History of Presen t illness Narrative Consultation requested by Dr. Darrin Tolentino MD for an opinion regarding Patient presents with: Cystoscopy-1: Had a catheter placed in December for urinary retention and blood clots. Catheter was last changed 01/08/2023. . My final recommendations will be communicated back to the requesting physician by way of shared Medical record or letter to requesting physician via [place] mail. HISTORY OF PRESENT ILLNESS: Morris Baez is a 82 year old male who complains of prostate cancer, gross hematuria and clot retention He had a Lockwood catheter on and off since April 2022. He typically is able to void spontaneously. Unfortunately, however recurrent episodes of hematuria, subsequent clot retention HPI 1-Duration: Months 2-Location: Bladder and prostate 3-Severity: Severe 4-Quality: 5-Context: 6-Timin-Modifying factors: 8-Associated signs & symptoms: None Medications/allergies reviewed and updated. PSA (ng/mL) Date Value 12/15/2022 0.07 09/22/2022 0.13 09/02/2022 0.16 06/22/2022 0.12 03/23/2022 0.14 12/29/2021 0.13 11/19/2021 0.16 09/07/2021 0.17 06/15/2021 0.38 02/08/2021 0.99 11/18/2020 5.01 07/14/2020 3.54 01/02/2020 2.44 10/05/2018 0.23 04/02/2018 0.26 10/05/2017 0.10 04/27/2017 16.22 02/06/2017 16.69 Creatinine Date Value Ref Range Status 01/11/2023 0.96 0.73 - 1.22 mg/dL Final 12/15/2022 0.99 0.73 - 1.22 mg/dL Final 09/22/2022 0.85 0.73 - 1.22 mg/dL Final 09/02/2022 0.85 0.73 - 1.22 mg/dL Final GLUCOSE UA (POCT) Negative 11/07/2022 BILIRUBIN UA (POCT) Negative 11/07/2022 KETONE UA (POCT) Negative 11/07/2022 SPECIFIC GRAVITY UA (POCT) 1.015 11/07/2022 HEMOGLOBIN/BLOOD UA (POCT) Large 11/07/2022 PH UA (POCT) 5.5 11/07/2022 PROTEIN UA (POCT) >=300 11/07/2022 UROBILINOGEN UA (POCT) 0.2 11/07/2022 NITRITE UA (POCT) Negative 11/07/2022 LEUKOCYTES UA (POCT) Large 11/07/2022 COLOR UA (POCT) Yellow 11/07/2022 CLARITY UA (POCT) Cloudy 11/07/2022 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 BENIGN HYPERTENSION 10/17/2005 Blood in urine cauterized the bladder Bone metastases 12/16/2020 Diverticulosis of colon 02/25/2009 Elevated prostate specific antigen (PSA) 02/10/2017 Erectile dysfunction due to arterial insufficiency 04/15/2015 Functional diarrhea 01/14/2009 Gastroesophageal reflux disease with esophagitis without hemorrhage 08/04/2020 History of kidney stones 10/28/2011 04/21/2022 Hypertrophy of prostate without urinary obstruction and other lower urinary tract symptoms (LUTS) Lipoma of left upper extremity 02/04/[address] 03/10/2022 DPA: Cheryl () Lung nodule seen on imaging study 01/02/2019 12/31/19 CT chest WO: stable nodules, largest 8mm: 1 year f/u 09/27/18 CT chest IVCON: multiple bilateral, largest 8mm right mid lung following CXRs 08/21/18 atelectasis vs infltrate, 09/13/18 lung nodule Medicare annual wellness visit, subsequent 02/04/2021 Medicare Part B: Last done: 02/04/2021 Mixed hyperlipidemia 10/28/2011 Nonrheumatic aortic valve stenosis 08/12/2021 2020: Mild-Mod. Prostate cancer (HCC) 04/27/2017 Right inguinal hernia Vitamin D deficiency 01/07/2020 PAST SURGICAL HISTORY Procedure Laterality Date 2D ECHO (EXEP) 02/09/2021 EF=55%, Mod LVH, 1-2+ , mild dyast dysf AMPUTATION TOE,MT-P JT Left 04/2020 second toe-Dr. Lai ARTHROSCOPY KNEE DIAGNOSTIC W/WO SYNOVIAL BX SPX 08/2003 Arthroscopy, knee, meniscus CARPAL TUNNEL Right 05/18/2018 Dr. Oliver Devlin COLONOSCOPY W/BIOPSY SINGLE/MULTIPLE 02/25/2009 INCISE/DRAIN BLADDER cauterized the bladder LAPAROSCOPY SURG RPR INITIAL INGUINAL HERNIA 05/28/2013 Right PAST SURGICAL HISTORY OF Left inguninal hernia repair REMV CATARACT EXTRACAP,INSERT LENS Bilateral 2022 TONSILLECTOMY PRIMARY/SECONDARY <AGE 11 Tonsillectomy and adnoids TOTAL KNEE REPLACEMENT 03/25/2014 left TKR, Dr. Posada TOTAL KNEE REPLACEMENT Right 03/19/2021 FAMILY HISTORY Problem Relation Age of Onset other (MACULAR DEGENERATION) Mother other (CHF) Father Social History Tobacco Use Smoking status: Never Smokeless tobacco: Never Vaping Use Vaping Use: Never used Substance Use Topics Alcohol use: No Drug use: No ALLERGIES: ALLERGIES Allergen Reactions Norvasc [Amlodipine] Other: See Comments Leg edema CURRENT OUTPATIENT MEDICATIONS: Lactobacillus acidophilus (ACIDOPHILUS ORAL)^Take by mouth.^Disp: ^Rfl: atorvastatin (LIPITOR) 40 mg tablet^1 tablet once daily.^Disp: ^Rfl: losartan (COZAAR) 50 mg tablet^Take 1 tablet by mouth once daily. Per cardio^Disp: ^Rfl: ferrous sulfate (IRON) 325 mg (65 mg iron) tablet^Take 325 mg by mouth once daily.^Disp: ^Rfl: furosemide (LASIX) 20 mg tablet^Take 2 tablets by mouth once daily.^Disp: 180 tablet^Rfl: 1 tamsulosin (FLOMAX) 0.4 mg^Take 1 capsule by mouth once daily. Per Urology Dr. Morejon^Disp: ^Rfl: metoprolol succinate ER (TOPROL XL) 50 mg 24 hr tablet^Take 1 tablet by mouth once daily. Increased by cardio 07/2022^Disp: 90 tablet^Rfl: 1 Omeprazole Magnesium (PRILOSEC OTC) 20 mg tablet^Take 1 tablet by mouth daily before breakfast. 1/2 hr before meal.^Disp: 90 tablet^Rfl: 1 ketoconazole (NIZORAL) 2 % shampoo^Apply to affected area two times a week.^Disp: 120 mL^Rfl: 1 finasteride (PROSCAR) 5 mg tablet^Take 5 mg by mouth once daily.^Disp: ^Rfl: MV with Iiu-Diwyrszl-Piyofl (CENTRUM SILVER) 0.4-300-250 mg-mcg-mcg tab^Take 1 tablet by mouth once daily.^Disp: ^Rfl: aspirin, enteric coated (ASPIRIN, ENTERIC COATED) 81 mg EC tablet^Take 1 tablet by mouth once daily.^Disp: ^Rfl: Cholecalciferol, Vitamin D3, 125 mcg (5,000 unit) cap^Take 1 capsule by mouth once daily.^Disp: ^Rfl: Blood Pressure Monitor (BLOOD PRESSURE KIT)^1 Each twice daily.^Disp: 1 Kit^Rfl: 0 (Patient not taking: Reported on 09/20/2022) REVIEW OF SYSTEMS: Const: Well appearing, in no acute distress, well-hydrated, well-nourished, alert, awake, oriented to time, place and person. HEENT: Negative for frequent or significant headaches. No changes in hearing or vision, no nose bleeds or other nasal problems. Neck: Negative for lumps, goiter, pain and significant neck swelling. Resp: Negative for cough, wheezing or shortness of breath. CV: Negative for chest pain, leg swelling or palpitations. GI: Negative for abdominal discomfort, blood in stools or black stools and change in bowel habits. : See HPI Musculoskelatal: Negative for joint pain or swelling, back pain or muscle pain. Skin: No skin lesions. Psych: Negative for sleep disturbance, mood disorder and recent psychosocial stressors. Jaswant/Lymph: Negative for prolonged bleeding, bruising easily or swollen nodes. Endocrine: Negative for cold or heat intolerance, polyuria, polydipsia and goiter. Neuro: No history of headaches, syncope, paralysis, seizures or tremors. PHYSICAL EXAMINATION: VITAL SIGNS: BP 138/74 Pulse 94 SpO2 98% Const: Well appearing, in no acute distress, well-hydrated, well-nourished, alert, awake, oriented to time, place and person. LAST LAB RESULTS: No results found for this basename: inr:1,ptsec:1 Glucose (mg/dL) Date Value 01/11/2023 112 06/15/2021 101 Potassium (mmol/L) Date Value 01/11/2023 4.0 06/15/2021 3.9 Sodium (mmol/L) Date Value 01/11/2023 135 06/15/2021 139 Chloride (mmol/L) Date Value 01/11/2023 102 06/15/2021 103 CO2 (mmol/L) Date Value 01/11/2023 23 06/15/2021 28 Creatinine (mg/dL) Date Value 01/11/2023 0.96 06/15/2021 0.79 BUN (mg/dL) Date Value 01/11/2023 18 06/15/2021 17 Anion Gap (mmol/L) Date Value 01/11/2023 10 06/15/2021 8 Calcium (mg/dL) Date Value 06/15/2021 9.1 Calcium, Total (mg/dL) Date Value 01/11/2023 9.1 Protein, Total (g/dL) Date Value 12/15/2022 8.0 06/15/2021 6.9 Albumin (g/dL) Date Value 12/15/2022 3.7 06/15/2021 3.9 Bilirubin, Total (mg/dL) Date Value 12/15/2022 0.5 06/15/2021 0.3 Alkaline Phosphatase (U/L) Date Value 12/15/2022 104 06/15/2021 70 AST (U/L) Date Value 12/15/2022 24 06/15/2021 20 ALT (U/L) Date Value 12/15/2022 22 06/15/2021 13 Glucose Date Value Ref Range Status 01/11/2023 112 (H) 74 - 99 mg/dL Final Comment: The [place] [employer] (ADA) provides guidance for cutoff values for fasting glucose and random glucose. The ADA defines fasting as no caloric intake for at least 8 hours. Fasting plasma glucose results between 100 to 125 mg/dL indicate increased risk for diabetes (prediabetes). Fasting plasma glucose results greater than or equal to 126 mg/dL meet the criteria for diagnosis of diabetes. In the absence of unequivocal hyperglycemia, results should be confirmed by repeat testing. In a patient with classic symptoms of hyperglycemia or hyperglycemic crisis, random plasma glucose results greater than or equal to 200 mg/dL meet the criteria for diagnosis of diabetes. Reference: Standards of Medical Care in Diabetes 2016, [place] [employer]. Diabetes Care. 2016.39(Suppl 1). I personally reviewed the patient's radiology images and dictation and I agree with the radiologist's opinion. I personally reviewed the patient's laboratory studies. 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 I recommended hyperbaric oxygen. To avoid complications of hematuria, clot retention and his false passages I have elected to replace his Lockwood catheter with a caddo tip catheter. Future catheter changes should be placed with a Glidewire. He can consider suprapubic tube in the future if this becomes a chronic issue Follow-up in 3 months and consider repeat cystoscopy later date Written and verbal health teaching given to patient, patient verbalizes understanding and agrees with treatment plan. Patient will call if worsening symptoms, no improvement, or any other concerns. Plan discussed. Benson Koroma MD Electronically Signed: Benson Koroma MD February 22, 2023 3:20 PM This note was partially created using voice recognition software and is inherently subject to errors including those of syntax and sound-alike substitutions which may escape proofreading. In such instances, original meaning may be extrapolated by contextual derivation. documented in this encounter [facility] 02-22-2023 Procedure note CYSTOSCOPY PROCEDURE NOTE : Morris Baez is a 82 year old male who presents with Hematuria gross for cystoscopy. PRE-OP/PRE-PROCEDURE DIAGNOSIS: Prostate cancer, gross hematuria, clot retention POST-OP/POST-PROCEDURE DIAGNOSIS: Prostate cancer, gross hematuria, clot retention SURGERY/PROCEDURE(S): Cystoscopy, complex Lockwood catheter change Pt ID verified with patient: Yes Procedure verified with patient: Yes Procedure confirmed with physician and application support developer: Yes UNIVERSAL PROTOCOL / SAFETY CHECKLIST Procedure to be Performed: Cystoscopy, complex Lockwood catheter change Sign In: A Moment of CARE was completed. Personnel directly involved with the procedure wore the appropriate PPE (Personal Protective Equipment). Patient/Surrogate Stated/Verified: PATIENT VERIFIED(optional for EMERGENT procedures): Patient name, Date of , Relevant allergies, and The intended procedure Time Out Communication: Intended patient and procedure match the source documents. Consent documented and matches the intended procedure. Sign Out: SIGN OUT (optional for EMERGENT procedures): No specimen collected. Benson Koroma MD A urinalysis was performed revealing no evidence of infection. The benefits, risks, alternatives of the cystoscopy procedure and personnel were discussed with the patient. The verbal consent was obtained and the patient agrees to proceed. Procedure: The patient was placed on the procedure table in the supine position and prepped and draped in the usual sterile fashion. 2% Lidocaine Jelly was placed per urethra as an anesthetic in the standard fashion. Once adequate local anesthesia was achieved, the tip of the flexible cystoscope was carefully placed into the urethra under direct visual guidance. The scope was negotiated through the pendulous urethra to the level of the bulbar urethra with no evidence of stricture. The verumontanum came into view and the scope was negotiated through the prostatic urethra which showed Ultiva false passages.. The bladder was entered and careful meza endoscopy was carried out. The bladder lining was difficult to visualize secondary to gross hematuria. There were no obvious tumors nor stones. A 0.35 Glidewire was placed through the working channel of the flexible cystoscope into the bladder. Using exchange technique a 20 Palauan caddo tip catheter was placed into the bladder and filled with 10 cc in the balloon. The catheter was then irrigated to clear Patient was given standard post-procedure instructions, and was directed to complete the course of oral antibiotics and increase oral fluid intake as directed. 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 I recommended hyperbaric oxygen. To avoid complications of hematuria, clot retention and his false passages I have elected to replace his Lockwood catheter with a caddo tip catheter. Future catheter changes should be placed with a Glidewire. He can consider suprapubic tube in the future if this becomes a chronic issue Benson Koroma MD Electronically Signed: Benson Koroma MD February 22, 2023 3:11 PM This note was partially created using voice recognition software and is inherently subject to errors including those of syntax and sound-alike substitutions which may escape proofreading. In such instances, original meaning may be extrapolated by contextual derivation. documented in this encounter [facility] 02-18-2023 Note HNO ID: [id number] Author: Note, Interface Service: ? Author Type: ? Type: Progress Notes Filed: 02/18/2023 5:10 AM Note Text: Epic Scheduled Downtime: 02/18/2023 1:00:00 AM to 02/18/2023 1:28:00 AM [facility] 02-10-2023 Note [facility] 02-08-2023 Note [facility] 01-31-2023 Miscellaneous Notes notified. Copy made for scanning. Form taken to medical records. Leatha Beltran MA Form completed and ready for patient to sampler pickup. Form on PCP's desk. Pt would like to sampler pickup tomorrow 01/31/23. Tania Molina Ma reports she is going to drop off [employer] forms today (switched to a better plan) to front facer, and ask them to place in Dr. Tolentino's mailbox. asking Dr. Tolentino to please fill out a couple of boxes and sign the forms, and call her for sampler pickup. documented in this encounter [facility] 01-17-2023 Note [facility] 01-17-2023 History of Presen t illness Narrative Dannie and his family wanted to discuss possible treatment options for the Urine Retention and Gross Hematuria he has been dealing with We had a long discussion months ago with his history and recommendations below September 2022 Morris Baez is a 81 year old male an established patient following up for history of prostate cancer 2017 Treated initially with External Beam Radiation Therapy,and then he had biochemical recurrence, and has not been getting ADT Lupron Injections To manage his metastatic prostate cancer., and does well with Dr. Dixon. Now he has been having Gross Hematuria with tissue and clots The patient reports he had a procedure to cauterize the bleeding tissue with [facility] Urology ( Dr. Mejia) and after that he had passed several large clots and tissue and Now seems back to him previous normal. But he is concerned because he gets the blood in the urine from time to time and worries its a new problem or UTI We discussed the likely cause of this is his radiation therapy and he is likely dealing with radiation cystitis and that it can continue to be cyclical with bleeding etc. I recommend he speak with Urologist and undergo full hematuria work up and if indeed findings show RC I think a referral for HBOTherapy for this condition may be helpful He has had several more episodes and still under Dr. Mejia care are [facility], after his recent ER visit and not being able to get into see Dr. Mejia since [place] They made this appointment to discuss once again his options. He has an appointment in Feb with Dr. Koroma for Flex Cystoscopy, which highly recommend they keep I also recommend that we not remove the lockwood at this time and to keep it in place until his procedure. I gave instructions on irrigating the lockwood if clots are still forming But to use no more that 60 - 120 ml daily and strongly encouraged much better hydration, he admits he does not drink much water. He should have a urine culture done the week prior to his Cystoscopy to insure no infection and that they should discuss with Dr. Koroma if he recommends any pre-Cystoscopy antibiotic even if culture is negative. They will call to get orders for urine culture and possible antibiotics from Dr. Koroma if he recommends this. I did explain we use a 1 dose antibiotic on the day of the Cystoscopy, and that they may not need more than that unless there is a know UTI. Once the Cystoscopy is done and if there are no bladder lesions concerning for cancer found, to discuss possible Hyperbaric Oxygen Therapy if it does in fact look like The cause is Radiation Cystitis. He was reluctant to get the consult before citing SE's concerns. There is a HBO clinic at [facility] which is much closer for them if that is an option Recommended by Dr. Koroma. According to patient reports in all of the Cystoscopies performed by Dr. Mejia so far there has been no bladder lesions just areas in the bladder That are bleeding and they were cauterized. I recommend they get those reports and take them for Dr. Koroma to review at the visit. They were very grateful for the discussion and expressed the desire to be followed by a [facility] Urologist, I assured them that Dr. Koroma is an excellent choice due his experience and direct approach to patient care. I spent a total of 40 minutes on the date of the service which included preparing to see the patient, face to face patient care, completing clinical documentation, obtaining and/or reviewing separately obtained history, performing a medically appropriate examination, counseling and educating the patient/family/caregiver, ordering medications, tests, or procedures, and care coordination. SHYANN Vargas, MTROD Verified name and date of . Patient with his and daughter for appointment. Is uncertain what plan for lockwood catheter is and requested to speak with Morgan Ramírez PA-C to discuss plan. Morgan did agree to talk with patient and his family. Mamie Finney LPN documented in this encounter [facility] 01-17-2023 Note [facility] 01-17-2023 Miscellaneous Notes Called patient. No answer-- left message to call clinic regarding appointment this evening. Last nurse appointment is actually 1540, not 1740. Uncertain how appointment was booked but patient needs scheduled earlier. Mamie Finney LPN documented in this encounter [facility] 01-13-2023 Miscellaneous Notes Pt daughter Keisha called in wanting to make an appt with . Pt previously seen by and Timoteo. But doesn't want to report back to . Pt is scheduled with and pt daughter will call back to confirm appts. He has an Hx of Bladder Ca and also experiencing hematuria. documented in this encounter [facility] 01-12-2023 Note HNO ID: [id number] Author: Tania Molina Ma Service: ? Author Type: ? Type: Progress Notes Filed: 01/15/2023 9:00 PM Note Text: [facility] ER report attached below. Scan on 01/12/2023 4:54 AM by Provider, ROD Haines: Consultation - Emergency Medicine [facility] 01-12-2023 Miscellaneous Notes EMERGENCY ROOM CALL BACK Today's date: January 12, 2023 Patient identified by name and date of . YES Primary Cancer Diagnosis: Prostate Reason for Emergency Room Visit: hematuria Time of day presented to Emergency Room 1425 If Mon-Monday during business hours: Did you contact your Supervisor Furnace Room/Provider? No FOLLOW UP Patient transferred from [facility] ED to [facility] ED for urology consult. Urinary catheter replaced. Patient to follow up with local Urologist in [place]. Patient is has follow up with our office 02/23/23 for labs/OV/Lupron injection (Xtandi on hold) Attestation signed by Mikael Cordon MD at 01/12/2023 1:42 AM Attending Note I evaluated the patient and personally participated in the leary components. I agree with the resident's findings and plan as documented and have discussed the case and management of the patient's care with the resident. Patient transferred to our facility for urologic consultation. Has been to [place] ED twice in the past 72 hours, initially had 14 Palauan Lockwood followed by 22 Palauan Lockwood. Clotted off 22 Palauan Lockwood and draining bright red-colored urine. Patient's urologist is out of town. Urology was consulted, plan for three-way [place] and bladder irrigation. Recently completed a course of Keflex for UTI, recommended a dose of prophylactic ceftriaxone given bladder irrigation. Dalila Vasquez RN documented in this encounter [facility] 01-11-2023 Note HNO ID: [id number] Author: Charlene Serrano MD Service: Urology Author Type: Resident Type: Plan of Care Filed: 01/11/2023 7:14 AM Note Text: Urology Plan of Care: Pt seen this AM. CBI bag empty. Lockwood draining see through pink urine. [place] manually irrigated, one small clot irrigated out then urine clear. Recommend dose of abx prior to discharge given bedside irrigation. Can cap 3rd irrigation port. Okay for discharge home with locwkood catheter in place and follow up outpatient with [facility] for removal. Will likely need outpatient cystoscopy. Discussed with tensioning machine operator attending Dr. Turner. Charlene Serrano MD Urology PGY2 01/11/2023 7:09 AM -Page tensioning machine operator resident with questions or concerns [facility] 01-04-2023 Note HNO ID: [id number] Author: Roma Morris LPN Service: ? Author Type: ? Type: Progress Notes Filed: 01/04/2023 1:50 PM Note Text: Scan on 01/04/2023 8:38 AM by Provider, External, PA-C: Pathology [facility] 12-15-2022 Note [facility] 12-15-2022 Instructions Jude Tam MD - 12/15/2022 9:35 AM EDT Hold xtandi (enzalutamide) for 2 weeks, see how hand tingling feels. Let me know via VYout if this helps. documented in this encounter [facility] 12-15-2022 History of Presen t illness Narrative HISTORY OF PRESENT ILLNESS: Morris Baez is a 82 [address] Per Dr. Nugent's previous note: H/o diagnosis of localized prostatic cancer in 2017. He underwent some limited hormone therapy in the form of Lupron and radiation. PSA remains very low for several months. However Lupron was resumed when PSA started to go up and around 5. Zytiga and prednisone were added when PSA on each peak of 16. Fluvicione PET scan was done at the time and showed a solitary T12 metastasis. Subsequently an MRI of the T-spine did not show any mass or malignant looking lesion. Review of chart, looks like biochemical recurrence only. Current therapy:Xtandi/lupron Here for follow up, doing ok, feels neuroapthy since starting treatments, interfering with his dexterity. CLINICAL IMPRESSION: Prostate cancer with biochemical relapse RECOMMENDATION/PLAN: 1. Continue CAB, but will hold xtandi a few weeks see if this impacts his neuropathy. He'll let me know 2. See back with next lupron. Written and verbal health teaching given to patient, patient verbalizes understanding and agrees with treatment plan. 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 BENIGN HYPERTENSION 10/17/2005 Blood in urine cauterized the bladder Bone metastases 12/16/2020 Diverticulosis of colon 02/25/2009 Elevated prostate specific antigen (PSA) 02/10/2017 Erectile dysfunction due to arterial insufficiency 04/15/2015 Functional diarrhea 01/14/2009 Gastroesophageal reflux disease with esophagitis without hemorrhage 08/04/2020 History of kidney stones 10/28/2011 04/21/2022 Hypertrophy of prostate without urinary obstruction and other lower urinary tract symptoms (LUTS) Lipoma of left upper extremity 02/04/[address] 03/10/2022 DPA: Cheryl () Lung nodule seen on imaging study 01/02/2019 12/31/19 CT chest WO: stable nodules, largest 8mm: 1 year f/u 09/27/18 CT chest IVCON: multiple bilateral, largest 8mm right mid lung following CXRs 08/21/18 atelectasis vs infltrate, 09/13/18 lung nodule Medicare annual wellness visit, subsequent 02/04/2021 Medicare Part B: Last done: 02/04/2021 Mixed hyperlipidemia 10/28/2011 Nonrheumatic aortic valve stenosis 08/12/2021 2020: Mild-Mod. Prostate cancer (HCC) 04/27/2017 Right inguinal hernia Vitamin D deficiency 01/07/2020 PAST SURGICAL HISTORY Procedure Laterality Date 2D ECHO (EXEP) 02/09/2021 EF=55%, Mod LVH, 1-2+ , mild dyast dysf AMPUTATION TOE,MT-P JT Left 04/2020 second toe-Dr. Lai ARTHROSCOPY KNEE DIAGNOSTIC W/WO SYNOVIAL BX SPX 08/2003 Arthroscopy, knee, meniscus CARPAL TUNNEL Right 05/18/2018 Dr. Oliver Devlin COLONOSCOPY W/BIOPSY SINGLE/MULTIPLE 02/25/2009 INCISE/DRAIN BLADDER cauterized the bladder LAPAROSCOPY SURG RPR INITIAL INGUINAL HERNIA 05/28/2013 Right PAST SURGICAL HISTORY OF Left inguninal hernia repair REMV CATARACT EXTRACAP,INSERT LENS Bilateral 2021 TONSILLECTOMY PRIMARY/SECONDARY <AGE 11 Tonsillectomy and adnoids TOTAL KNEE REPLACEMENT 03/25/2014 left TKR, Dr. Posada TOTAL KNEE REPLACEMENT Right 03/19/2021 FAMILY HISTORY Problem Relation Age of Onset other (MACULAR DEGENERATION) Mother other (CHF) Father Social History Tobacco Use Smoking status: Never Smokeless tobacco: Never Vaping Use Vaping Use: Never used Substance Use Topics Alcohol use: No Drug use: No ALLERGIES: ALLERGIES Allergen Reactions Norvasc [Amlodipine] Other: See Comments Leg edema CURRENT OUTPATIENT MEDICATIONS: furosemide (LASIX) 20 mg tablet Take 2 tablets by mouth once daily. tamsulosin (FLOMAX) 0.4 mg Take 1 capsule by mouth once daily. Per Urology Dr. Morejon potassium chloride ER (KLOR-CON M20) 20 mEq tablet Take 1 tablet by mouth twice daily. metoprolol succinate ER (TOPROL XL) 50 mg 24 hr tablet Take 1 tablet by mouth once daily. Increased by cardio 07/2022 Omeprazole Magnesium (PRILOSEC OTC) 20 mg tablet Take 1 tablet by mouth daily before breakfast. 1/2 hr before meal. ketoconazole (NIZORAL) 2 % shampoo Apply to affected area two times a week. albuterol HFA (PROVENTIL HFA, VENTOLIN HFA) 90 mcg/actuation inhaler Inhale 2 Puffs as instructed every 4 hours as needed for wheezing/shortness of breath. finasteride (PROSCAR) 5 mg tablet Take 5 mg by mouth once daily. Cholecalciferol, Vitamin D3, 125 mcg (5,000 unit) cap Take 1 capsule by mouth once daily. MV with Omq-Viazeakk-Uepqsw (CENTRUM SILVER) 0.4-300-250 mg-mcg-mcg tab Take 1 tablet by mouth once daily. Cephalexin 500 mg tab Take 500 mg by mouth three times daily. Take one tablet every 8 hours. (Patient not taking: Reported on 12/01/2022) aspirin, enteric coated (ASPIRIN, ENTERIC COATED) 81 mg EC tablet Take 81 mg by mouth once daily. (Patient not taking: Reported on 08/25/2022) Blood Pressure Monitor (BLOOD PRESSURE KIT) 1 Each twice daily. (Patient not taking: Reported on 09/20/2022) REVIEW OF SYSTEMS: GENERAL: No fever, night sweats, weight loss or malaise. All other reviewed and negative other than HPI. PHYSICAL EXAMINATION: VITAL SIGNS: BP 185/93 Pulse 86 Resp 16 Wt 252 lb (114.3kg) SpO2 98% GENERAL APPEARANCE: Well appearing, in no acute distress, alert and oriented x3, well-hydrated, well nourished. I spent a total of 40 minutes on the date of the service which included preparing to see the patient, [id number] patient care, completing clinical documentation, obtaining and/or reviewing separately obtained history, counseling and educating the patient/family/caregiver, ordering medications, tests, or procedures, independently interpreting results (not separately reported), and communicating results to the patient/family/caregiver. Electronically Signed: Jude Tam MD December 15, 2022 9:18 AM documented in this encounter [facility] 12-05-2022 Miscellaneous Notes Patient has been identified by name and date of : Yes Requested Prescriptions Pending Prescriptions Disp Refills furosemide (LASIX) 20 mg tablet 180 tablet 1 Sig: Take 2 tablets by mouth once daily. RX INSTRUCTIONS: Patient aware RX will be sent to pharmacy. No need to notify patient. Leatha Beltran MA [facility] 11/2022Mar 1803/2023 Last refill: 07/2022 documented in this encounter [facility] 12-01-2022 Note [facility] 12-01-2022 History of Presen t illness Narrative Scan on 11/30/2022 10:16 AM by Yancy Goode PA-C: Scan on 11/29/2022 8:52 PM by Yancy Goode PA-C: CT Scan Scan on 11/29/2022 4:03 PM by Yancy Goode PA-C Scan on 11/29/2022 4:49 PM by Ynacy Goode PA-C: Consultation - documented in this encounter [address]27-2023 Nurse Note Lupron injection administered, right buttock,tolerated well, no immediate adverse reactions noted. Rosa Isela Camara LPN documented in this encounter [facility] 11-15-2022 Miscellaneous Notes LM for patient to contact office to inform of the below. Isabella Estrada MA Urine was negative for infection. Cont as discussed with dr. Tolentino yesterday. Does not need to start antibiotic provided by ER. ROD Vidal MD documented in this encounter [facility] 11-14-2022 Note [facility] 11-14-2022 Instructions Darrin Tolentino MD - 11/14/2022 8:31 AM EDT Please make a ER f/u with Dr. Morejon for recurrent UTI, hematuria, stones, excessive urine frequency. CT in the ER showed thickened bladder wall. documented in this encounter [facility] 11-14-2022 History of Presen t illness Narrative Chief Complaint Patient presents with: ED Follow-up HPI Morris Baez is a 81 year old male who presents here today for ER Follow Up.. Office visit - [facility] er follow up Abdomen pain/UTI/Kidney stones. Patient presented to [facility] ER on 11/10/2022 with c/o hematuria. A few day prior he had some hematuria and urine was cloudy and had come into the express care and was started on bactrim and cultures were taken. The ER reviewed these and were sensitive to the bactrim.. He denied any fevers, chills, nausea, vomiting or flank pain. He does have a Hx of renal stones and the last time one was passed was 2-3 weeks ago. He has alos had issues with recurrent UTI's since Apr and urine frequency with urgency. CT in ER showed multiple renal stones without obstruction or acute hydronephrosis. There was some bladder wall thickening. Patient was to stay on the bactrim but was also given keflex to change to if no improvement in 2-3 days. Patient is not having any further blood in his urine. No fevers, chills, nausea, vomiting, dysuria increased frequency or urgency. No flank pain. Urine is now clear. Wondering if he needs to start the keflex. Office visit 6 month follow up 09/2022 Patient with hx of HTN, GERD, hyperlipidemia, Prostate cancer, Bone Mets, Lung nodule, Vit D def, arthritis, Hx of renal stones as well as those reviewed Patient is scheduled later this month for aortic valve replacement. He also has been working with urology for his prostate issues. Was having issues with kidney stones. Concerns: He is having issues staying asleep because he keeps waking up to pee. Urology is try new medications. N/t in both hands. Has increased since heart cath. B/l shoulder pain which worsens with activity. Dry skin and itchy scalp. Past medical history, appointments, medications, allergies reviewed. 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 BENIGN HYPERTENSION 10/17/2005 Bone metastases 12/16/2020 Diverticulosis of colon 02/25/2009 Elevated prostate specific antigen (PSA) 02/10/2017 Erectile dysfunction due to arterial insufficiency 04/15/2015 Functional diarrhea 01/14/2009 Gastroesophageal reflux disease with esophagitis without hemorrhage 08/04/2020 History of kidney stones 10/28/2011 04/21/2022 Hypertrophy of prostate without urinary obstruction and other lower urinary tract symptoms (LUTS) Lipoma of left upper extremity 02/04/[address] 03/10/2022 DPA: Cheryl () Lung nodule seen on imaging study 01/02/2019 12/31/19 CT chest WO: stable nodules, largest 8mm: 1 year f/u 09/27/18 CT chest IVCON: multiple bilateral, largest 8mm right mid lung following CXRs 08/21/18 atelectasis vs infltrate, 09/13/18 lung nodule Medicare annual wellness visit, subsequent 02/04/2021 Medicare Part B: Last done: 02/04/2021 Mixed hyperlipidemia 10/28/2011 Nonrheumatic aortic valve stenosis 08/12/2021 2020: Mild-Mod. Prostate cancer (HCC) 04/27/2017 Right inguinal hernia Vitamin D deficiency 01/07/2020 Previous Surgical History PAST SURGICAL HISTORY Procedure Laterality Date 2D ECHO (EXEP) 02/09/2021 EF=55%, Mod LVH, 1-2+ , mild dyast dysf AMPUTATION TOE,MT-P JT Left 04/2020 second toe-Dr. Lai ARTHROSCOPY KNEE DIAGNOSTIC W/WO SYNOVIAL BX SPX 08/2003 Arthroscopy, knee, meniscus CARPAL TUNNEL Right 05/18/2018 Dr. Oliver Devlin COLONOSCOPY W/BIOPSY SINGLE/MULTIPLE 02/25/2009 LAPAROSCOPY SURG RPR INITIAL INGUINAL HERNIA 05/28/2013 Right PAST SURGICAL HISTORY OF Left inguninal hernia repair REMV CATARACT EXTRACAP,INSERT LENS Bilateral 2021 TONSILLECTOMY PRIMARY/SECONDARY <AGE 11 Tonsillectomy and adnoids TOTAL KNEE REPLACEMENT 03/25/2014 left TKR, Dr. Posada TOTAL KNEE REPLACEMENT Right 03/19/2021 Family History FAMILY HISTORY Problem Relation Age of Onset other (MACULAR DEGENERATION) Mother other (CHF) Father Patient Allergies ALLERGIES Allergen Reactions Norvasc [Amlodipine] Other: See Comments Leg edema Current Medications Current Outpatient Medications on File Prior to Visit Medication Sig sulfamethoxazole-trimethoprim (BACTRIM DS) 800-160 mg per tablet Take 1 tablet by mouth twice daily for 7 days. potassium chloride ER (KLOR-CON M20) 20 mEq tablet Take 1 tablet by mouth twice daily. metoprolol succinate ER (TOPROL XL) 50 mg 24 hr tablet Take 1 tablet by mouth once daily. Increased by cardio 07/2022 Omeprazole Magnesium (PRILOSEC OTC) 20 mg tablet Take 1 tablet by mouth daily before breakfast. 1/2 hr before meal. ketoconazole (NIZORAL) 2 % shampoo Apply to affected area two times a week. mirabegron (MYRBETRIQ) 50 mg Tb24 Take by mouth. Per Urology, Dr. Morejon albuterol HFA (PROVENTIL HFA, VENTOLIN HFA) 90 mcg/actuation inhaler Inhale 2 Puffs as instructed every 4 hours as needed for wheezing/shortness of breath. furosemide (LASIX) 20 mg tablet Take 2 tablets by mouth once daily. enzalutamide (XTANDI) 80 mg tablet Take 2 tablets (160 mg) by mouth once daily. tamsulosin (FLOMAX) 0.4 mg Take 1 capsule by mouth twice daily. Per Urology Dr. Morejon finasteride (PROSCAR) 5 mg tablet Take 5 mg by mouth once daily. ZINC ORAL Take 1 tablet by mouth once daily. Cholecalciferol, Vitamin D3, 125 mcg (5,000 unit) cap Take 1 capsule by mouth once daily. aspirin, enteric coated (ASPIRIN, ENTERIC COATED) 81 mg EC tablet Take 81 mg by mouth once daily. (Patient not taking: No sig reported) MV with Dmx-Pzglqcbd-Tzthbn (CENTRUM SILVER) 0.4-300-250 mg-mcg-mcg tab Take 1 tablet by mouth once daily. Blood Pressure Monitor (BLOOD PRESSURE KIT) 1 Each twice daily. (Patient not taking: Reported on 09/20/2022) No current facility-administered medications on file prior to visit. Social History Social History Tobacco Use Smoking status: Never Smokeless tobacco: Never Vaping Use Vaping Use: Never used Substance Use Topics Alcohol use: No Drug use: No Review of Symptoms REVIEW OF SYSTEMS See HPI EXAM: BP 150/82 (BP Site: Left Arm, BP Position: Sitting, BP Cuff Size: Large Adult) Pulse 72 Temp 36.2 C (97.1 F) (Tympanic) Resp 16 Wt 111.6 kg (246 lb) BMI 35.30 kg/m BP 134/74 Pulse 72 Temp 36.2 C (97.1 F) (Tympanic) Resp 16 Wt 111.6 kg (246 lb) BMI 35.30 kg/m General Appearance: Well appearing, alert, in no acute distress, well-hydrated, well nourished.. Back:no CVA tenderness. Lungs: Lungs clear to auscultation. No wheezing, rhonchi, rales.. Heart: RRR without murmur, gallop, or rubs. No ectopy. Abdomen: Normal abdominal exam, Abdomen soft, non-tender. Bowel sounds normal. No masses, organomegaly. Health Maintenance List ADVANCE DIRECTIVE DISCUSSION due on 05/08/2022 SHINGRIX VACCINE(1 of 2) due on 03/09/2023 COVID-19 VACCINE(1) due on 03/09/2023 INFLUENZA(1) due on 01/06/2023 DIABETES SCREEN due on 09/22/2025 DTAP,TDAP,TD(3 - Td or Tdap) due on 01/06/2030 DEPRESSION ASSESSMENT Completed PNEUMOCOCCAL: 65+ Completed HPV VACCINE Aged Out COLONOSCOPY Discontinued Data reviewed [facility] ER report reviewed. A/P ASSESSMENT/PLAN: 1. Recurrent UTI (urinary tract infection) - ICD9: 599.0, ICD10: N39.0 (primary diagnosis) recurrent - will send a urine for culture. Patient to stay off the keflex till urine culture back. Patient to make appt to f/u with Dr. Morejon for recurrent UTI, hematuria, stones, excessive urine frequency. CT in the ER showed thickened bladder wall. Darrin Tolentino MD documented in this encounter [facility] 11-10-2022 Note [facility] 11-10-2022 History of Presen t illness Narrative Scan on 11/01/2022 3:31 PM by External Provider, PA-C: Consultation - Scan on 11/10/2022 11:46 AM by External Provider, PA-C: Consultation - Emergency Medicine documented in this encounter [facility] 11-07-2022 Note [facility] 10-25-2022 Miscellaneous Notes BLADE: 09/08/2022 Last refill: 06/01/2022 QTY: 60 Refills: 1 Patient's request for medication is as follows: Requested Prescriptions Pending Prescriptions Disp Refills potassium chloride ER (KLOR-CON M20) 20 mEq tablet 60 tablet 1 Sig: Take 1 tablet by mouth twice daily. Please approve the above prescription(s) to electronically send to pharmacy. Umesh De Oliveira Ma documented in this encounter [facility] 10-24-2022 Miscellaneous Notes The following approved medication requests have been transmitted electronically. Requested Prescriptions Signed Prescriptions Disp Refills metoprolol succinate ER (TOPROL XL) 50 mg 24 hr tablet 90 tablet 1 Sig: Take 1 tablet by mouth once daily. Increased by cardio 07/2022 Authorizing Provider: DARRIN TOLENTINO Omeprazole Magnesium (PRILOSEC OTC) 20 mg tablet 90 tablet 1 Sig: Take 1 tablet by mouth daily before breakfast. 1/2 hr before meal. Authorizing Provider: DARRIN TOLENTINO MD Spoke with pt's regarding below. She confirms that pt does not take lisinopril. They did sampler pickup refill for Metoprolol from [facility] but would like to have this sent to [facility] . Pt is still taking omeprazole 20 mg daily. Please send refills to [facility]. Call only if problem. Delicia Franklin LPN Please check with patient on meds. [facility] calling for refills. 1) Lisinopril which we have that he told us on 05/31/2022 he was no longer taking. 2) Metoprolol succinate 50 mg a day: refill for 90 tans with 1 RF sent to [facility] on 09/08/2022 3) omeprazole 20 mg a day, last refill for 6 months sent 03/09/2022. Verify still on? [facility] pharmacy called asking for refill on 3 medications. Lisinopril is no longer on med list and noted discontinued on 05/31/2022 and suspect it was due to leg swelling. If patient is to continue to take please refill. Last office visit: 09/08/22 Next appointment scheduled: 03/16/23 Last labs: 09/22/22 Pharmacy calls in requesting the following refill(s): Requested Prescriptions Pending Prescriptions Disp Refills metoprolol succinate ER (TOPROL XL) 50 mg 24 hr tablet 90 tablet 1 Sig: Take 1 tablet by mouth once daily. Increased by cardio 07/2022 Omeprazole Magnesium (PRILOSEC OTC) 20 mg tablet 90 tablet 1 Sig: Take 1 tablet by mouth daily before breakfast. 1/2 hr before meal. documented in this encounter [facility] 10-24-2022 Note [facility] 10-24-2022 History of Presen t illness Narrative Scan on 10/19/2022 8:47 AM by External Provider, PA-C: Consultation - Scan on 10/20/2022 4:28 PM by External Provider, PA-C: Consultation - Cardiology Leatha Beltran MA documented in this encounter [facility] 10-10-2022 Note HNO ID: [id number] Author: Leatah Beltran MA Service: ? Author Type: Apparel Sales Leader Type: Progress Notes Filed: 10/10/2022 5:02 PM Note Text: Scan on 10/06/2022 12:40 PM by External Provider, TEDC: CT Scan Leatha Beltran MA [facility] 10-10-2022 History of Presen t illness Narrative Scan on 10/06/2022 12:40 PM by External Provider, ROD: CT Scan Leatha Beltran MA documented in this encounter [facility] 10-07-2022 Note HNO ID: [id number] Author: Delicia Franklin LPN Service: ? Author Type: ? Type: Progress Notes Filed: 10/07/2022 12:34 PM Note Text: Scan on 10/06/2022 7:01 PM by External Provider, ROD: Consultation - Emergency Medicine [facility] 10-07-2022 History of Presen t illness Narrative Scan on 10/06/2022 7:01 PM by External Provider, ROD: Consultation - Emergency Medicine documented in this encounter [facility] 09-27-2022 Note Received referral an d reviewed chart. Phase II Cardiac Rehab Referral discussed with Morris Baez. Patient prefers cardiac rehab at [facility]. Given information on cardiac rehab at preferred location. [facility] 09-27-2022 Note Attestation signed by Tabatha Gonsalves MD at 09/29/2022 8:21 AM I, Dr. Gonsalves, saw and evaluated the patient on 09/27/22. I personally obtained the leary and critical portions of the history and physical exam. I reviewed the chart and discussed the patient with the Nurse Practitioner. I agree with the Nurse Practitioner's medical decision making. Hospital Summary: Patient was admitted for elective transcatheter aortic valve replacement. he did well with this procedure. he is now POD1 s/p TF TAVR. he is back to his baseline activity with no symptoms. he will be discharged today on his current medication list. he will follow up in valve clinic in 1-2 weeks. Name: Morris Baez Date of : 1940 Date of Admission: 09/26/2022 Date of Discharge: 09/27/2022 Admitting physician: Tabatha Gonsalves MD Discharge Attending: KHLOE Loya CNP, MD Primary Care Physician: German Merino Reason for Admission: Severe Symptomatic Aortic Stenosis Consultants: cardiac rehab HOSPITAL ADMISSION PROBLEM LIST: Patient Active Problem List Diagnosis Aortic stenosis Essential hypertension Other hyperlipidemia BPH (benign prostatic hyperplasia) Prostate carcinoma (HCC) Patient reports improvement in breathing and walking. Denies chest pain, syncope, groin or wrist complaints, bleeding. Review of Systems Review of Systems Constitutional: Negative for activity change, chills, diaphoresis, fatigue and fever. HENT: Negative for nosebleeds and trouble swallowing. Eyes: Negative for discharge and visual disturbance. Respiratory: Negative for apnea, cough, chest tightness, shortness of breath and wheezing. Cardiovascular: Negative for chest pain, palpitations and leg swelling. Gastrointestinal: Negative for abdominal distention, abdominal pain, blood in stool, diarrhea, nausea and vomiting. Endocrine: Negative for cold intolerance and heat intolerance. Genitourinary: Negative for hematuria. Musculoskeletal: Positive for myalgias (chronic). Negative for gait problem. Skin: Negative for color change and rash. Neurological: Negative for dizziness, seizures, syncope, facial asymmetry, speech difficulty, weakness, light-headedness, numbness and headaches. Hematological: Does not bruise/bleed easily. Psychiatric/Behavioral: Negative for dysphoric mood. Physical Exam Physical Exam Constitutional: Appearance: Normal appearance. HENT: Head: Normocephalic and atraumatic. Nose: Nose normal. Eyes: Conjunctiva/sclera: Conjunctivae normal. Pupils: Pupils are equal, round, and reactive to light. Cardiovascular: Rate and Rhythm: Normal rate and regular rhythm. Pulmonary: Effort: Pulmonary effort is normal. Breath sounds: Normal breath sounds. Abdominal: General: Bowel sounds are normal. Palpations: Abdomen is soft. Musculoskeletal: General: Normal range of motion. Cervical back: Normal range of motion and neck supple. Right lower leg: Edema present. Left lower leg: Edema present. Skin: General: Skin is warm and dry. Comments: Right groin and wrist soft without bleeding or hematoma Neurological: General: No focal deficit present. Mental Status: He is alert and oriented to person, place, and time. Psychiatric: Mood and Affect: Mood normal. Thought Content: Thought content normal. Procedures: Transfemoral transcatheter AVR with 26 mm Lesvia S3 valve under moderate sedation Transthoracic echocardiogram HOSPITAL COURSE : The patient was admitted to the hospital for elective TAVR on 09/26/2022 . A 26 mm Lesvia S3 valve was implanted. The patient returned to [facility] for recovery. Vital signs and labs were stable. There were no groin complications. The patient was ambulatory the evening of the procedure. Post procedure echocardiogram demonstrated : Aortic Valve: Successful TAVR. Kaur Lesvia 3 Ultra bioprosthetic aortic valve with a size of 26 mm is well-seated. Trace paravalvular regurgitation. No significant stenosis. AV mean gradient is 9 mmHg. AV peak gradient is 19 mmHg. AV area by continuity VTI is 2.2 cm2. Left Ventricle: Left ventricle size is normal. Moderately increased wall thickness. Mildly increased ventricular mass. Low normal left ventricular systolic function. The EF by visual approximation is 55%. EF by 2D Simpsons Biplane is 50-55%. Normal wall motion. Right Ventricle: Right ventricle size is normal. Increased wall thickness. Normal systolic function. Mitral Valve: Mild stenosis noted. MV mean gradient is 5 mmHg. Left Atrium: Left atrium is severely dilated. Blood pressure was elevated during hospital admission. Cozaar was added to his regimen. Atorvastatin was added for treatment of CAD. Patient education including SBE p (more content not included)... [facility] 09-26-2022 Note Patient: Morris li Procedure Summary Date: 09/26/22 [place] [facility] [place] Anesthesia Start: 722 Anesthesia Stop: 857 Procedures: TAVR, TTE TRANSCATHETER AORTIC VALVE REPLACEMENT (TAVR) - OR (Chest) Diagnosis: Nonrheumatic aortic valve stenosis (Aortic Stenosis) Surgeons: Tabatha Gonsalves MD; Roxy Carey DO Responsible Provider: KHLOE Ceja CRNA Anesthesia Type: TIVA ASA Status: 4 Anesthesia Type: TIVA Vitals Value Taken Time BP 144/89 09/26/22 1030 Temp 36.3 ?C (97.4 ?F) 09/26/22 0900 Pulse 75 09/26/22 1049 Resp 15 09/26/22 1013 SpO2 96 % 09/26/22 1049 Vitals shown include unvalidated device data. Anesthesia Post Evaluation Patient location during evaluation: ICU Patient participation: complete - patient cannot participate Level of consciousness: intubated and sedated Pain management: adequate Airway patency: patent Dental Injury: no Cardiovascular status: acceptable and hemodynamically stable Respiratory status: acceptable, ETT, intubated and ventilator Hydration status: acceptable Nausea/Vomiting: controlled There were no known notable events for this encounter. Patient can be discharged once all PACU criteria has been met. [facility] 09-26-2022 Note Patient: Morris li Procedure Summary Date: 09/26/22 Room / Location: [facility] [place] Anesthesia Start: 722 Anesthesia Stop: 857 Procedures: TAVR, TTE TRANSCATHETER AORTIC VALVE REPLACEMENT (TAVR) - OR (Chest) Diagnosis: Nonrheumatic aortic valve stenosis (Aortic Stenosis) Surgeons: Tabatha Gonsalves MD; Roxy Carey DO Responsible Provider: KHLOE Ceja CRNA Anesthesia Type: TIVA ASA Status: 4 Anesthesia Type: TIVA Vitals Value Taken Time BP 144/89 09/26/22 1030 Temp 36.3 ?C (97.4 ?F) 09/26/22 0900 Pulse 76 09/26/22 1048 Resp 15 09/26/22 1013 SpO2 97 % 09/26/22 1048 Vitals shown include unvalidated device data. Anesthesia Post Evaluation Patient participation: complete - patient cannot participate Post-procedure mental status: sedated/intubated. Pain score: 0 Pain management: adequate Multimodal analgesia pain management approach Airway patency: patent Two or more strategies used to mitigate risk of obstructive sleep apnea Cardiovascular status: hemodynamically stable Respiratory status: acceptable, intubated, ventilator and ETT Hydration status: acceptable There were no known notable events for this encounter. MIPS #430 PONV Patient did not receive an inhalational anesthetic ([id number]) MIPS # 424 Perioperative Temperature Management Anesthesia time was 60 minutes or longer (4255F) Anesthesai administered was General (inhalational or TIVA) or Neuraxial block (X0424) At least one body temperature greater than 95.8F/35.5C achieved within the 30 mins immediately prior to or the 15 minutes immediately following anesthesia end time (G9771) MIPS #477 Multimodal Pain Management Not emergent case Patient was administered multimodal pain management (two or more drugs and/or interventions excluding systemic opioids) in the periopeartive period occurring at some time between 6 hours prior to anesthesia start time until discharged from PACU (G2148) MIPS #404 Anesthesiology Smoking Abstinence The patient is not a current smoker (e.g. cigarette, cigar, pipe, e-cigarette/vaping/marijuana) If no stop here (XX404) I completed my handoff to the receiving clinician during which we: 1. Identified the patient 2. Identified the responsible provider 3. Reviewed the pertinent medical history 4. Discussed the surgical course 5. Reviewed intra-op anesthesia management and issues during anesthesia 6. Set expectations for post-procedure period 7. Allowed opportunity for questions and acknowledgement of understanding. [facility] 09-23-2022 Note Attestation signed by Tabatha Gonsalves MD at 09/26/2022 4:14 PM I, Dr. Gonsalves, saw and evaluated the patient. I personally obtained the leary and critical portions of the history and physical exam. I reviewed the chart and discussed the patient with the Nurse Practitioner. I agree with the Nurse Practitioner's medical decision making. I spoke with Morris Baez this morning. he tells me that nothing has changed clinically since our last office visit. We will proceed with the planned procedure. Tabatha Gonsalves MD Cardiology Rheumatic aortic stenosis Dx Cardiac Valve Problem Reason for Visit Progress Notes Tabatha Gonsalves MD (Physician) Cardiology Expand All Collapse All [facility] [address] [facility] [address] Dept: [phone] Dept Loc: [phone] Visit type: New : 1940 Reason for Visit: Cardiac Valve Problem Assessment and Plan 1. Rheumatic aortic stenosis - ECG 12 lead - CLINIC PERFORMED This is a very pleasant 81y/o male with severe and symptomatic aortic stenosis. He is in need of AVR. CT today shows anatomy favorable for transfemoral TAVR. Patient and family educated about the pros/cons of surgical AVR vs TAVR, wish to proceed with TAVR. The pros, cons, risks, benefits, and alternatives of the TAVR procedure were discussed with the patient and his family. This includes the risk of , heart attack, stroke, need for conversion to open procedure, need for permanent pacemaker, kidney injury, vascular injury, and other complications. Their questions were answered, and they wished to proceed with the procedure. It was a pleasure seeing your patient in the office today. Please do not hesitate to call me with any questions. Follow up in about 3 months (around 12/14/2022). Subjective HPI Morris Baez is a very pleasant 81y/o male here for evaluation of his aortic stenosis. He has had progressive dyspnea on exertion and fatigue. Recent echo shows normal EF, mean aortic valve gradient of 43mmHg, RADHA 0.9cm2. He had a cath showing moderate proximal LAD disease, but no lesion in need of revascularization. He underwent CTA today for TAVR anatomic planning. He also met with CT surgery today, who agree that if CT shows anatomy favorable for TAVR, would be an appropriate TAVR candidate. Review of Systems Constitutional: Positive for fatigue. Negative for activity change, chills, diaphoresis and fever. HENT: Negative for nosebleeds and trouble swallowing. Eyes: Negative for discharge and visual disturbance. Respiratory: Positive for shortness of breath. Negative for apnea, cough, chest tightness and wheezing. Cardiovascular: Positive for leg swelling. Negative for chest pain and palpitations. Gastrointestinal: Negative for abdominal distention, abdominal pain, blood in stool, diarrhea, nausea and vomiting. Endocrine: Negative for cold intolerance and heat intolerance. Genitourinary: Negative for hematuria. Musculoskeletal: Positive for gait problem (uses cane). Negative for myalgias. Skin: Negative for color change and rash. Neurological: Negative for dizziness, seizures, syncope, facial asymmetry, speech difficulty, weakness, light-headedness, numbness and headaches. Hematological: Does not bruise/bleed easily. Psychiatric/Behavioral: Negative for dysphoric mood. No Known Allergies Medications Prior to Visit Outpatient Medications Prior to Visit Medication Sig Dispense Refill abiraterone (Zytiga) 250 MG chemo tablet Take 1,000 mg by mouth every evening. finasteride (Proscar) 5 MG tablet Take 5 mg by mouth daily. furosemide (Lasix) 20 MG tablet Take 40 mg by mouth daily. metoprolol succinate XL (Toprol-XL) 25 MG 24 hr tablet Take 50 mg by mouth daily. Multiple Vitamins-Minerals (multivitamin with minerals) tablet Take 1 tablet by mouth daily. omeprazole (PriLOSEC) [address] capsule Take 20 mg by mouth daily. potassium chloride CR (Klor-Con M20) 20 MEQ ER tablet Take 20 mEq by mouth 2 times daily. tamsulosin (Flomax) 0.4 MG 24 hr capsule Take 0.4 mg by mouth 2 times daily. predniSONE (Deltasone) 5 MG tablet Take 5 mg by mouth every evening. No facility-administered medications prior to visit. Medical History Past Medical History: Diagnosis Date Aortic stenosis Arthritis BPH (benign prostatic hyperplasia) Depression GERD (gastroesophageal reflux disease) Heart valve disease Hyperlipidemia Hypertension Prostate cancer metastatic to bone (HCC) Social History Tobacco Use Smoking status: Never Smokeless tobacco: Never Substance Use Topics Alcohol use: Not Currently Surgical History Past Surgical History: Procedure Laterality Date LAP,INGUINAL HERNIA REPR,INI (more content not included)... [facility] 09-23-2022 Note Attestation signed by Tabatha Gonsalves MD at 09/26/2022 4:14 PM IDr. Gonsalves, saw and evaluated the patient. I personally obtained the leary and critical portions of the history and physical exam. I reviewed the chart and discussed the patient with the Nurse Practitioner. I agree with the Nurse Practitioner's medical decision making. I spoke with Morris Baez this morning. he tells me that nothing has changed clinically since our last office visit. We will proceed with the planned procedure. Tabatha Gonsalves MD Cardiology Rheumatic aortic stenosis Dx Cardiac Valve Problem Reason for Visit Progress Notes Tabatha Gonsalves MD (Physician) Cardiology Expand All Collapse All [facility] [address] [facility] [address] Dept: [phone] Dept Loc: [phone] Visit type: New : 1940 Reason for Visit: Cardiac Valve Problem Assessment and Plan 1. Rheumatic aortic stenosis - ECG 12 lead - CLINIC PERFORMED This is a very pleasant 81y/o male with severe and symptomatic aortic stenosis. He is in need of AVR. CT today shows anatomy favorable for transfemoral TAVR. Patient and family educated about the pros/cons of surgical AVR vs TAVR, wish to proceed with TAVR. The pros, cons, risks, benefits, and alternatives of the TAVR procedure were discussed with the patient and his family. This includes the risk of , heart attack, stroke, need for conversion to open procedure, need for permanent pacemaker, kidney injury, vascular injury, and other complications. Their questions were answered, and they wished to proceed with the procedure. It was a pleasure seeing your patient in the office today. Please do not hesitate to call me with any questions. Follow up in about 3 months (around 12/14/2022). Subjective HPI Morris Baez is a very pleasant 81y/o male here for evaluation of his aortic stenosis. He has had progressive dyspnea on exertion and fatigue. Recent echo shows normal EF, mean aortic valve gradient of 43mmHg, RADHA 0.9cm2. He had a cath showing moderate proximal LAD disease, but no lesion in need of revascularization. He underwent CTA today for TAVR anatomic planning. He also met with CT surgery today, who agree that if CT shows anatomy favorable for TAVR, would be an appropriate TAVR candidate. Review of Systems Constitutional: Positive for fatigue. Negative for activity change, chills, diaphoresis and fever. HENT: Negative for nosebleeds and trouble swallowing. Eyes: Negative for discharge and visual disturbance. Respiratory: Positive for shortness of breath. Negative for apnea, cough, chest tightness and wheezing. Cardiovascular: Positive for leg swelling. Negative for chest pain and palpitations. Gastrointestinal: Negative for abdominal distention, abdominal pain, blood in stool, diarrhea, nausea and vomiting. Endocrine: Negative for cold intolerance and heat intolerance. Genitourinary: Negative for hematuria. Musculoskeletal: Positive for gait problem (uses cane). Negative for myalgias. Skin: Negative for color change and rash. Neurological: Negative for dizziness, seizures, syncope, facial asymmetry, speech difficulty, weakness, light-headedness, numbness and headaches. Hematological: Does not bruise/bleed easily. Psychiatric/Behavioral: Negative for dysphoric mood. No Known Allergies Medications Prior to Visit Outpatient Medications Prior to Visit Medication Sig Dispense Refill abiraterone (Zytiga) 250 MG chemo tablet Take 1,000 mg by mouth every evening. finasteride (Proscar) 5 MG tablet Take 5 mg by mouth daily. furosemide (Lasix) 20 MG tablet Take 40 mg by mouth daily. metoprolol succinate XL (Toprol-XL) 25 MG 24 hr tablet Take 50 mg by mouth daily. Multiple Vitamins-Minerals (multivitamin with minerals) tablet Take 1 tablet by mouth daily. omeprazole (PriLOSEC) [address] capsule Take 20 mg by mouth daily. potassium chloride CR (Klor-Con M20) 20 MEQ ER tablet Take 20 mEq by mouth 2 times daily. tamsulosin (Flomax) 0.4 MG 24 hr capsule Take 0.4 mg by mouth 2 times daily. predniSONE (Deltasone) 5 MG tablet Take 5 mg by mouth every evening. No facility-administered medications prior to visit. Medical History Past Medical History: Diagnosis Date Aortic stenosis Arthritis BPH (benign prostatic hyperplasia) Depression GERD (gastroesophageal reflux disease) Heart valve disease Hyperlipidemia Hypertension Prostate cancer metastatic to bone (HCC) Social History Tobacco Use Smoking status: Never Smokeless tobacco: Never Substance Use Topics Alcohol use: Not Currently Surgical History Past Surgical History: Procedure Laterality Date LAP,INGUINAL HERNIA REPR,INI (more content not included)... [facility] 09-23-2022 Note Sly Hudson [employer] notified for prep for proc orders. Diagnosis: Procedure being done: TF TAVR Date/time of procedure: 09/26/22 7:30 am Surgeon: Dr. Gonsalves 2nd surgeon: Dr. Carey Admission type: To be admitted Anesthesia: MAC Completed: H&P/CXR/EKG/T&S/CMP/CBC/BNP Date completed: 09/13/22 Additional orders None Pt had CXR 08/01/[address] [facility] in media section [facility] 09-22-2022 Note [facility] 09-20-2022 Note [facility] 09-20-2022 Note [facility] 09-20-2022 History of Presen t illness Narrative Images from the original note were not included. [facility] ESTABLISHED PATIENT CLINIC NOTE Some elements copied from his previous note, which have been updated where appropriate, and all reflect current medical decision making from date of this visit. SERVICE DATE: 09/20/2022 SERVICE TIME: 3:34 PM NAME: Morris Baez CHIEF COMPLAINT: Follow-Up from ER visit for Urine Retention HISTORY OF PRESENT ILLNESS: Morris Baez is a 81 year old male an established patient following up for history of prostate cancer 2017 Treated initially with External Beam Radiation Therapy,and then he had biochemical recurrence, and has not been getting ADT Lupron Injections To manage his metastatic prostate cancer., and does well with Dr. Dixon. Now he has been having Gross Hematuria with tissue and clots The patient reports he had a procedure to cauterize the bleeding tissue with [facility] and after that he had passed several large clots and tissue and Not seem back to him previous normal. 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 I recommend he speak with Urologist/ PCP or Oncologist about referral for HBOTherapy for this condition. LUTS: DYSURIA: no URGENCY: No FREQUENCY:7 per day NOCTURIA: 3 per night STRAINING TO VOID: Yes EMPTIES COMPLETELY: No UTI: No GROSS HEMATURIA: yes UA DIPSTICK POSITIVE ONLY: no Other symptoms: LABS: Hematocrit (%) Date Value 09/02/2022 36.8 07/10/2022 36.7 06/22/2022 35.1 03/23/2022 35.5 06/15/2021 37.6 02/08/2021 42.6 01/23/2021 44.3 05/24/2013 45.0 HCT (%) Date Value 03/17/2021 41.4 PSA (ng/mL) Date Value 09/02/2022 0.16 06/22/2022 0.12 03/23/2022 0.14 12/29/2021 0.13 06/15/2021 0.38 02/08/2021 0.99 11/18/2020 5.01 07/14/2020 3.54 No results found for: TESTOST PSA (ng/mL) Date Value 09/02/2022 0.16 06/22/2022 0.12 03/23/2022 0.14 12/29/2021 0.13 06/15/2021 0.38 02/08/2021 0.99 11/18/2020 5.01 07/14/2020 3.54 Creatinine Date Value Ref Range Status 09/02/2022 0.85 0.73 - 1.22 mg/dL Final 07/10/2022 0.66 (L) 0.73 - 1.22 mg/dL Final 06/22/2022 0.75 0.73 - 1.22 mg/dL Final 06/07/2022 0.72 (L) 0.73 - 1.22 mg/dL Final MEDICATIONS: metoprolol succinate ER (TOPROL XL) 50 mg 24 hr tablet Take 1 tablet by mouth once daily. Increased by cardio 07/2022 ketoconazole (NIZORAL) 2 % shampoo Apply to affected area two times a week. albuterol HFA (PROVENTIL HFA, VENTOLIN HFA) 90 mcg/actuation inhaler Inhale 2 Puffs as instructed every 4 hours as needed for wheezing/shortness of breath. furosemide (LASIX) 20 mg tablet Take 2 tablets by mouth once daily. potassium chloride ER (KLOR-CON M20) 20 mEq tablet Take 1 tablet by mouth twice daily. (Patient taking differently: Take 20 mEq by mouth twice daily. Once daily) Omeprazole Magnesium (PRILOSEC OTC) 20 mg tablet Take 1 tablet by mouth daily before breakfast. 1/2 hr before meal. tamsulosin (FLOMAX) 0.4 mg Take 1 capsule by mouth twice daily. Per Urology Dr. Morejon finasteride (PROSCAR) 5 mg tablet Take 5 mg by mouth once daily. Cholecalciferol, Vitamin D3, 125 mcg (5,000 unit) cap Take 1 capsule by mouth once daily. MV with Xdu-Lgvpinwm-Iygywo (CENTRUM SILVER) 0.4-300-250 mg-mcg-mcg tab Take 1 tablet by mouth once daily. mirabegron (MYRBETRIQ) 50 mg Tb24 Take by mouth. Per Urology, Dr. Morejon enzalutamide (XTANDI) 80 mg tablet Take 2 tablets (160 mg) by mouth once daily. ZINC ORAL Take 1 tablet by mouth once daily. aspirin, enteric coated (ASPIRIN, ENTERIC COATED) 81 mg EC tablet Take 81 mg by mouth once daily. (Patient not taking: No sig reported) Blood Pressure Monitor (BLOOD PRESSURE KIT) 1 Each twice daily. (Patient not taking: Reported on 09/20/2022) PAST MEDICAL HISTORY: 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 BENIGN HYPERTENSION 10/17/2005 Bone metastases 12/16/2020 Diverticulosis of colon 02/25/2009 Elevated prostate specific antigen (PSA) 02/10/2017 Erectile dysfunction due to arterial insufficiency 04/15/2015 Functional diarrhea 01/14/2009 Gastroesophageal reflux disease with esophagitis without hemorrhage 08/04/2020 History of kidney stones 10/28/2011 04/21/2022 Hypertrophy of prostate without urinary obstruction and other lower urinary tract symptoms (LUTS) Lipoma of left upper extremity 02/04/[address] 03/10/2022 DPA: Cheryl () Lung nodule seen on imaging study 01/02/2019 12/31/19 CT chest WO: stable nodules, largest 8mm: 1 year f/u 09/27/18 CT chest IVCON: multiple bilateral, largest 8mm right mid lung following CXRs 08/21/18 atelectasis vs infltrate, 09/13/18 lung nodule Medicare annual wellness visit, subsequent 02/04/2021 Medicare Part B: Last done: 02/04/2021 Mixed hyperlipidemia 10/28/2011 Nonrheumatic aortic valve stenosis 08/12/2021 2020: Mild-Mod. Prostate cancer (HCC) 04/27/2017 Right inguinal hernia Vitamin D deficiency 01/07/2020 PAST SURGICAL HISTORY: PAST SURGICAL HISTORY Procedure Laterality Date 2D ECHO (EXEP) 02/09/2021 EF=55%, Mod LVH, 1-2+ , mild dyast dysf AMPUTATION TOE,MT-P JT Left 04/2020 second toe-Dr. Lai ARTHROSCOPY KNEE DIAGNOSTIC W/WO SYNOVIAL BX SPX 08/2003 Arthroscopy, knee, meniscus CARPAL TUNNEL Right 05/18/2018 Dr. Oliver Devlin COLONOSCOPY W/BIOPSY SINGLE/MULTIPLE 02/25/2009 LAPAROSCOPY SURG RPR INITIAL INGUINAL HERNIA 05/28/2013 Right PAST SURGICAL HISTORY OF Left inguninal hernia repair REMV CATARACT EXTRACAP,INSERT LENS Bilateral 2021 TONSILLECTOMY PRIMARY/SECONDARY <AGE 11 Tonsillectomy and adnoids TOTAL KNEE REPLACEMENT 03/25/2014 left TKR, Dr. Posada TOTAL KNEE REPLACEMENT Right 03/19/2021 FAMILY HISTORY: FAMILY HISTORY Problem Relation Age of Onset other (MACULAR DEGENERATION) Mother other (CHF) Father SOCIAL HISTORY: Social Connections: Socially Integrated Frequency of Communication with Friends and Family: Twice a week Frequency of Social Gatherings with Friends and Family: Once a week Attends Islam Services: More than 4 times per year Active Member of Clubs or Organizations: Yes Attends Club or Organization Meetings: More than 4 times per year Marital Status: REVIEW OF SYSTEMS: GENERAL: No fever, chills, weight loss, or fatigue. All other systems reviewed and are negative PHYSICAL EXAMINATION: Blood pressure 140/104, pulse 86, temperature 36.5 C (97.7 F), temperature source Temporal, resp. rate 16, height 177.8 cm (5' 10 ), weight 112.5 kg (248 lb), SpO2 98 %. GENERAL: WNL nutrition, no deformities, healthy appearing PROBLEM LIST REVIEW: Yes LABS: Results for orders placed or performed in visit on 09/20/22 UA DIP, URINE (POC) Result Value Ref Range GLUCOSE UA (POCT) Negative Negative mg/dL BILIRUBIN UA (POCT) Negative Negative KETONE UA (POCT) Negative Negative mg/dL SPECIFIC GRAVITY UA (POCT) 1.025 1.005 - 1.030 HEMOGLOBIN/BLOOD UA (POCT) Small (A) Negative PH UA (POCT) 5.5 4.5 - 8.0 PROTEIN UA (POCT) Negative Negative mg/dL UROBILINOGEN UA (POCT) 0.2 Normal E.U./dL NITRITE UA (POCT) Negative Negative LEUKOCYTES UA (POCT) Small (A) Negative COLOR UA (POCT) Yellow CLARITY UA (POCT) Clear PROCEDURES: PVR: 147 ml IMAGING: IMPRESSION/PLAN: 81 year old male with 1. 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 Prostate cancer (HCC) - ICD9: 185, ICD10: C61 3. Urinary incontinence, unspecified type - ICD9: 788.30, ICD10: R32 4. History of kidney stones - ICD9: V13.01, ICD10: Z87.442 5. Gross hematuria - ICD9: 599.71, ICD10: R31.0 > continue Lupron > Discuss HBO therapy with PCP and Dr. Dixon for possible referral > Continue with heart Valve replacement SHYANN Vargas MT, ROD Verified name and date of . CC Post Void Residual HPI: Morris Baez is a 81 year old male. The patient is here now for an appointment with SHYANN Vargas MT, PA-COV. Procedure: Explained procedure to patient and verbalizes understanding. Performed a PVR. Patient urinated and instructed to empty bladder as much as possible just prior to having PVR done using bladder ultrasound scanner. Results of scan: 147 mL The patient tolerated the procedure well. Plan: Appointment with Morgan. documented in this encounter [facility] 09-20-2022 Note Patient: Morris li Procedure Information Date/Time: 09/26/22729 Procedures: TAVR, TTE TRANSCATHETER AORTIC VALVE REPLACEMENT (TAVR) - OR (Chest) Location: [facility] Operating Room Surgeons: Tabatha Gonsalves MD; Roxy Carey DO Relevant Problems Cardio (+) Aortic stenosis (+) Essential hypertension (+) Other hyperlipidemia /Renal (+) BPH (benign prostatic hyperplasia) Other (+) Prostate carcinoma (HCC) Past Medical History: Past Medical History: No date: Aortic stenosis No date: Arthritis No date: BPH (benign prostatic hyperplasia) No date: Depression No date: GERD (gastroesophageal reflux disease) No date: Heart valve disease No date: Hyperlipidemia No date: Hypertension No date: Prostate cancer metastatic to bone (HCC) Past Surgical History: Past Surgical History: No date: LAP,INGUINAL HERNIA REPR,INITIAL (HISTORICAL) No date: TOTAL KNEE ARTHROPLASTY; Left Social History: TOBACCO: reports that he has never smoked. He has never used smokeless tobacco. ETOH: reports that he does not currently use alcohol. Social History Substance and Sexual Activity Drug Use Never Family History: No family history on file. Screening: unknown Clinical information reviewed: Physical Exam Airway Mallampati: II TM distance: >3 FB Mouth Open: normal Cardiovascular Dental (+) Poor Pulmonary Abdominal Anesthesia Plan ASA 4 TIVA The patient is not a current smoker. Anesthetic plan and risks discussed with patient. patient is NPO No ERAS AMINA Screening Labs: Lab Results Component Value Date WBC 8.3 09/13/2022 HGB 11.6 (L) 09/13/2022 HCT 35.7 (L) 09/13/2022 MCV 82.6 09/13/2022 PLT 318 09/13/2022 Lab Results Component Value Date NA 136 09/13/2022 K 4.3 09/13/2022 CL 100 09/13/2022 CO2 26 09/13/2022 BUN 15 09/13/2022 CREATININE 0.73 09/13/2022 GLUCOSE 68 (L) 09/13/2022 CALCIUM 9.4 09/13/2022 PROT 8.8 (H) 09/13/2022 ALKPHOS 100 09/13/2022 AST 41 09/13/2022 ALT 22 09/13/2022 EGFR >90.0 09/13/2022 No echocardiogram results found for the past 14 days 09/13/22 ECG 12-LEAD (Preliminary) Sinus Rhythm -occasional PAC ? # PACs = 1. -RSR(V1) -nondiagnostic. PROBABLY NORMAL [facility] 09-13-2022 Note TAVR procedure, inst ructions reviewed with pt, and daughter. Patient scheduled for TAVR on 09/26/22 at 7:30 am Will report to [facility] by 5:30 am Can park in the [facility] Parking Deck or use [employer] parking at the [facility] entrance Plan on overnight stay in the hospital Will not be able to drive for 1 week after procedure Will receive moderate sedation through the IV, will be relaxed but awake during the procedure Nothing to eat or drink after midnight Instructed to take morning medications including ASA as prescribed with small sip of water EXCEPT to HOLD furosemide, vitamins and supplements morning of surgery Will call with any questions/concerns Pre-op testing done 09/13/22 Patient/family verbalized understanding. [facility] 09-13-2022 History of Presen t illness Narrative Images from the original note were not included. [facility]: Cardiothoracic Surgery Multidisciplinary Heart Valve Clinic Date: 09/13/22 Patient:Morris Baez 1940 81 y.o. male [id number] Subjective: HPI: 81 M with severe aortic valve stenosis. History of hypertension, hyperlipidemia, prostate cancer. Does have SOB and fatigue which is corroborated with his family narration of his story of his symptoms. No orthopnea, no chest pain, no palpitation, no heaviness or pressure. No pre-syncope. Recent echo shows EF of 60-65%, mildly enlarged left atrium, mild mitral valve stenosis, and severe aortic stenosis. Coronary angiogram showed moderate LAD irregularities. Review of Systems Constitutional: Positive for fatigue. Negative for activity change, chills, diaphoresis and fever. HENT: Negative for nosebleeds and trouble swallowing. Eyes: Negative for discharge and visual disturbance. Respiratory: Positive for shortness of breath. Negative for apnea, cough, chest tightness and wheezing. Cardiovascular: Positive for leg swelling. Negative for chest pain and palpitations. Gastrointestinal: Negative for abdominal distention, abdominal pain, blood in stool, diarrhea, nausea and vomiting. Endocrine: Negative for cold intolerance and heat intolerance. Genitourinary: Negative for hematuria. Musculoskeletal: Positive for gait problem (uses cane). Negative for myalgias. Skin: Negative for color change and rash. Neurological: Negative for dizziness, seizures, syncope, facial asymmetry, speech difficulty, weakness, light-headedness, numbness and headaches. Hematological: Does not bruise/bleed easily. Psychiatric/Behavioral: Negative for dysphoric mood. Allergies: Patient has no known allergies. Past Medical History: has a past medical history of Aortic stenosis, Arthritis, BPH (benign prostatic hyperplasia), Depression, GERD (gastroesophageal reflux disease), Heart valve disease, Hyperlipidemia, Hypertension, and Prostate cancer metastatic to bone (HCC). Past Surgical History: has a past surgical history that includes Total knee arthroplasty (Left) and lap,inguinal hernia repr,initial (historical). Social History: reports that he has never smoked. He has never used smokeless tobacco. He reports that he does not currently use alcohol. He reports that he does not use drugs. Family History: family history is not on file. Medications: Prior to Admission medications Medication Sig Start Date End Date Taking? Authorizing Provider abiraterone (Zytiga) 250 MG chemo tablet Take 1,000 mg by mouth every evening. 06/28/22 Historical Provider, finasteride (Proscar) 5 MG tablet Take 5 mg by mouth daily. 08/05/22 Historical Provider, furosemide (Lasix) 20 MG tablet Take 40 mg by mouth daily. 08/02/22 Historical Provider, metoprolol succinate XL (Toprol-XL) 25 MG 24 hr tablet Take 50 mg by mouth daily. 05/17/22 Historical Provider, Multiple Vitamins-Minerals (multivitamin with minerals) tablet Take 1 tablet by mouth daily. Historical Provider, omeprazole (PriLOSEC) [address] capsule Take 20 mg by mouth daily. 05/17/22 Historical Provider, potassium chloride CR (Klor-Con M20) 20 MEQ ER tablet Take 20 mEq by mouth 2 times daily. 07/19/22 Historical Provider, predniSONE (Deltasone) 5 MG tablet Take 5 mg by mouth every evening. 08/05/22 Historical Provider, tamsulosin (Flomax) 0.4 MG 24 hr capsule Take 0.4 mg by mouth 2 times daily. 08/05/22 Historical Provider, Objective: Physical Exam Vitals: BP (!) 144/90 (BP Location: Left arm, Patient Position: Sitting, BP Cuff Size: Adult) Pulse 91 Ht 1.778 m (5' 10 ) Wt 112 kg (246 lb 14.6 oz) SpO2 98% BMI 35.43 kg/m Constitutional: General: Not in acute distress. Appearance: Normal appearance. Not toxic-appearing. Ear, nose, mouth: Bilateral external ear and nose normal. Nose: Nose normal. Mouth: Appearance normal, no bleeding, moist mucus membranes Eyes: General: No scleral icterus. No discharge from bilateral eyes Extraocular Movements: Extraocular movements intact. Pupils equal and reactive bilaterally Cardiovascular: Heart: Regular rhythm. Systolic murmur Vascular: No carotid bruit. Edema: + edema in bilateral lower extremities Pulmonary: Effort: Pulmonary effort is normal. No respiratory distress. Breath sounds: Normal breath sounds. No wheezing. Chest wall: No tenderness. Abdominal: Appearance: Not distended Palpations: There is no abdominal tenderness, no guarding. Musculoskeletal: Bilateral upper and lower extremities: Normal range of motion, no deformity Head: Normocephalic and atraumatic. Neck: Normal range of motion and neck supple. No muscular tenderness. Lymphadenopathy: Cervical: No cervical adenopathy. Skin: General: Skin is warm and dry. Coloration: Skin is not jaundiced. Neurological: General: No focal deficit present. Cranial Nerves: No obvious cranial nerve deficit. Psychiatric: Mood and Affect: Mood normal. Thought Content: Thought content normal. Patient has good judgement and insight Mental Status: Alert and oriented to place, person, and time. Labs: Reviewed in EMR No results found for: WBC, HGB, HCT, MCV, PLT No results found for: NA, K, CL, CO2, BUN, CREATININE, GLUCOSE, CALCIUM Diagnostics: Reviewed in EMR Assessment/Plan: 81 M with symptomatic severe aortic stenosis. Given age and debility, a TAVR approach to valve replacement is preferred. Discussed risks and benefits and perioperative course. Him and his family understand. Workup completed. He will be scheduled. Dana Ocampo MD Cardiothoracic Surgery Patient consents to surgical bailout: [x] Yes [] No If No why: Disclaimers: INFORMED CONSENT: The nature and purpose of the proposed treatment and/or procedure have been discussed. The risks and benefits of the proposed treatment or procedures have been reviewed. Alternatives have been reviewed in addition to the risks and benefits of not receiving treatments or undergoing procedures. Pursuant to this discussion, the patient agrees to undergo the proposed treatment or procedure. Captured images seen in this note are not a substitute for a comprehensive interpretation of the entire data set as reflected by the interpreting physician with regard to radiology, echocardiography, and other diagnostic images. documented in this encounter [facility] 09-13-2022 History of Presen t illness Narrative Images from the original note were not included. [facility] MED[facility] CARDIOLOGY [address] [facility] [address] Dept: [phone] Dept Loc: [phone] Visit type: New : 1940 Reason for Visit: Cardiac Valve Problem Assessment and Plan 1. Rheumatic aortic stenosis - ECG 12 lead - CLINIC PERFORMED This is a very pleasant 81y/o male with severe and symptomatic aortic stenosis. He is in need of AVR. CT today shows anatomy favorable for transfemoral TAVR. Patient and family educated about the pros/cons of surgical AVR vs TAVR, wish to proceed with TAVR. The pros, cons, risks, benefits, and alternatives of the TAVR procedure were discussed with the patient and his family. This includes the risk of , heart attack, stroke, need for conversion to open procedure, need for permanent pacemaker, kidney injury, vascular injury, and other complications. Their questions were answered, and they wished to proceed with the procedure. It was a pleasure seeing your patient in the office today. Please do not hesitate to call me with any questions. Follow up in about 3 months (around 12/14/2022). Subjective HPI Morris Baez is a very pleasant 81y/o male here for evaluation of his aortic stenosis. He has had progressive dyspnea on exertion and fatigue. Recent echo shows normal EF, mean aortic valve gradient of 43mmHg, RADHA 0.9cm2. He had a cath showing moderate proximal LAD disease, but no lesion in need of revascularization. He underwent CTA today for TAVR anatomic planning. He also met with CT surgery today, who agree that if CT shows anatomy favorable for TAVR, would be an appropriate TAVR candidate. Review of Systems Constitutional: Positive for fatigue. Negative for activity change, chills, diaphoresis and fever. HENT: Negative for nosebleeds and trouble swallowing. Eyes: Negative for discharge and visual disturbance. Respiratory: Positive for shortness of breath. Negative for apnea, cough, chest tightness and wheezing. Cardiovascular: Positive for leg swelling. Negative for chest pain and palpitations. Gastrointestinal: Negative for abdominal distention, abdominal pain, blood in stool, diarrhea, nausea and vomiting. Endocrine: Negative for cold intolerance and heat intolerance. Genitourinary: Negative for hematuria. Musculoskeletal: Positive for gait problem (uses cane). Negative for myalgias. Skin: Negative for color change and rash. Neurological: Negative for dizziness, seizures, syncope, facial asymmetry, speech difficulty, weakness, light-headedness, numbness and headaches. Hematological: Does not bruise/bleed easily. Psychiatric/Behavioral: Negative for dysphoric mood. No Known Allergies Outpatient Medications Prior to Visit Medication Sig Dispense Refill abiraterone (Zytiga) 250 MG chemo tablet Take 1,000 mg by mouth every evening. finasteride (Proscar) 5 MG tablet Take 5 mg by mouth daily. furosemide (Lasix) 20 MG tablet Take 40 mg by mouth daily. metoprolol succinate XL (Toprol-XL) 25 MG 24 hr tablet Take 50 mg by mouth daily. Multiple Vitamins-Minerals (multivitamin with minerals) tablet Take 1 tablet by mouth daily. omeprazole (PriLOSEC) [address] capsule Take 20 mg by mouth daily. potassium chloride CR (Klor-Con M20) 20 MEQ ER tablet Take 20 mEq by mouth 2 times daily. tamsulosin (Flomax) 0.4 MG 24 hr capsule Take 0.4 mg by mouth 2 times daily. predniSONE (Deltasone) 5 MG tablet Take 5 mg by mouth every evening. No facility-administered medications prior to visit. Past Medical History: Diagnosis Date Aortic stenosis Arthritis BPH (benign prostatic hyperplasia) Depression GERD (gastroesophageal reflux disease) Heart valve disease Hyperlipidemia Hypertension Prostate cancer metastatic to bone (HCC) Social History Tobacco Use Smoking status: Never Smokeless tobacco: Never Substance Use Topics Alcohol use: Not Currently Past Surgical History: Procedure Laterality Date LAP,INGUINAL HERNIA REPR,INITIAL (HISTORICAL) TOTAL KNEE ARTHROPLASTY Left No family history on file. Objective Vitals: 09/13/22 1416 BP: (!) 144/90 BP Location: Left arm Patient Position: Sitting BP Cuff Size: Adult Pulse: 91 SpO2: 98% Weight: 248 lb (112 kg) Height: 5' 10 (1.778 m) Physical Exam Constitutional: General: He is not in acute distress. Appearance: He is not diaphoretic. HENT: Head: Normocephalic. Nose: Nose normal. Mouth/Throat: Mouth: Mucous membranes are moist. Pharynx: No oropharyngeal exudate. Eyes: General: No scleral icterus. Right eye: No discharge. Left eye: No discharge. Neck: Thyroid: No thyromegaly. Vascular: No carotid bruit or JVD. Cardiovascular: Rate and Rhythm: Normal rate and regular rhythm. Pulses: Normal pulses. Heart sounds: Murmur heard. Systolic murmur is present with a grade of 3/6. Pulmonary: Effort: Pulmonary effort is normal. Breath sounds: Normal breath sounds. Abdominal: General: Bowel sounds are normal. There is no distension. Palpations: There is no hepatomegaly. Tenderness: There is no abdominal tenderness. Musculoskeletal: General: Normal range of motion. Cervical back: Normal range of motion. Right lower leg: No edema. Left lower leg: No edema. Skin: General: Skin is warm and dry. Neurological: Mental Status: He is oriented to person, place, and time. Psychiatric: Mood and Affect: Mood normal. Behavior: Behavior normal. Data Reviewed and Summarized No results found for: EFBP, PLVEF, LVEFPHYS, LVEF2D, EF Review of tests/labs done/ordered within my specialty: EKG in office: Review of tests/labs done/ordered outside my specialty: Independent interpretation of tests: I personally reviewed the images from Morris Baez's most recent cath and TTE in the office today, to help with medical decision making. Tabatha Gonsalves MD documented in this encounter [facility] 09-12-2022 Miscellaneous Notes Patient's notified of results and provider's instructions. Patient's verbalizes understanding. Delicia Franklin LPN Let patient know that urine was positive. And antibiotic given is showing some possible resistance, therefor I am going to send in different atb for him to take. Follow up with urology if symptoms continue. Tell him to stop the potassium supplement while on this new atb. Thanks. Carmen England PA-C documented in this encounter [facility] documented as of this encounter (statuses as of 01/31/2023) [facility]05-04-2023 History of Past illness Narrative* Problem Noted Date Diagnosed Date Resolved Date PVD (peripheral vascular disease) 09/08/2022 01/30/2023 Other acute osteomyelitis of left foot 09/08/2022 01/30/2023 Elevated PSA 02/15/2017 01/02/2019 documented as of this encounter (statuses as of 02/23/2023) [facility]05-04-2023 History of Past illness Narrative* Problem Noted Date Diagnosed Date Resolved Date PVD (peripheral vascular disease) 09/08/2022 01/30/2023 Other acute osteomyelitis of left foot 09/08/2022 01/30/2023 Elevated PSA 02/15/2017 01/02/2019 documented as of this encounter (statuses as of 02/23/2023) [facility]-04[facility]2023 History of Past illness Narrative* Problem Noted Date Diagnosed Date Resolved Date PVD (peripheral vascular disease) 09/08/2022 01/30/2023 Other acute osteomyelitis of left foot 09/08/2022 01/30/2023 Elevated PSA 02/15/2017 01/02/2019 documented as of this encounter (statuses as of 02/23/2023) [place] [id number] History of Past illness Narrative* Problem Noted Date Diagnosed Date Resolved Date PVD (peripheral vascular disease) 09/08/2022 01/30/2023 Other acute osteomyelitis of left foot 09/08/2022 01/30/2023 Elevated PSA 02/15/2017 01/02/2019 documented as of this encounter (statuses as of 02/26/2023) [facility]2023 History of Past illness Narrative* Problem Noted Date Diagnosed Date Resolved Date PVD (peripheral vascular disease) 09/08/2022 01/30/2023 Other acute osteomyelitis of left foot 09/08/2022 01/30/2023 Elevated PSA 02/15/2017 01/02/2019 documented as of this encounter (statuses as of 02/27/2023) [facility] History of Past illness Narrative* Problem Noted Date Diagnosed Date Resolved Date PVD (peripheral vascular disease) 09/08/2022 01/30/2023 Other acute osteomyelitis of left foot 09/08/2022 01/30/2023 Elevated PSA 02/15/2017 01/02/2019 documented as of this encounter (statuses as of 03/02/2023) [facility] History of Past illness Narrative* Problem Noted Date Diagnosed Date Resolved Date PVD (peripheral vascular disease) 09/08/2022 01/30/2023 Other acute osteomyelitis of left foot 09/08/2022 01/30/2023 Elevated PSA 02/15/2017 01/02/2019 documented as of this encounter (statuses as of 03/15/2023) [facility] History of Past illness Narrative* Problem Noted Date Diagnosed Date Resolved Date PVD (peripheral vascular disease) 09/08/2022 01/30/2023 Other acute osteomyelitis of left foot 09/08/2022 01/30/2023 Elevated PSA 02/15/2017 01/02/2019 documented as of this encounter (statuses as of 03/16/2023) [address]04-2023 History of Past illness Narrative* Problem Noted Date Diagnosed Date Resolved Date PVD (peripheral vascular disease) 09/08/2022 01/30/2023 Other acute osteomyelitis of left foot 09/08/2022 01/30/2023 Elevated PSA 02/15/2017 01/02/2019 documented as of this encounter (statuses as of 03/21/2023) [facility] History of Past illness Narrative* Problem Noted Date Diagnosed Date Resolved Date PVD (peripheral vascular disease) 09/08/2022 01/30/2023 Other acute osteomyelitis of left foot 09/08/2022 01/30/2023 Elevated PSA 02/15/2017 01/02/2019 documented as of this encounter (statuses as of 03/24/2023) [facility] History of Past illness Narrative* Problem Noted Date Diagnosed Date Resolved Date PVD (peripheral vascular disease) 09/08/2022 01/30/2023 Other acute osteomyelitis of left foot 09/08/2022 01/30/2023 Elevated PSA 02/15/2017 01/02/2019 documented as of this encounter (statuses as of 04/13/2023) [facility] History of Present illness Narrative* Carmen England PA-C - 09/08/2022 10:09 AM EDT Chief Complaint Patient presents with: 6 Month Exam HPI Morris Baez is a 81 year old male who presents here today for Chronic Medical Conditions.. Patient with hx of HTN, GERD, hyperlipidemia, Prostate cancer, Bone Mets, Lung nodule, Vit D def, arthritis, Hx of renal stones as well as those reviewed Patient is scheduled later this month for aortic valve replacement. He also has been working with urology for his prostate issues. Was having issues with kidney stones. Concerns: He is having issues staying asleep because he keeps waking up to pee. Urology is try new medications. N/t in both hands. Has increased since heart cath. B/l shoulder pain which worsens with activity. Dry skin and itchy scalp. Past medical history, appointments, medications, allergies reviewed. 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 BENIGN HYPERTENSION 10/17/2005 Bone metastases 12/16/2020 Diverticulosis of colon 02/25/2009 Erectile dysfunction due to arterial insufficiency 04/15/2015 Functional diarrhea 01/14/2009 Gastroesophageal reflux disease with esophagitis without hemorrhage 08/04/2020 History of kidney stones 10/28/2011 04/21/2022 Hypertrophy of prostate without urinary obstruction and other lower urinary tract symptoms (LUTS) Lipoma of left upper extremity 02/04/[address] 03/10/2022 DPA: Cheryl () Lung nodule seen on imaging study 01/02/2019 12/31/19 CT chest WO: stable nodules, largest 8mm: 1 year f/u 09/27/18 CT chest IVCON: multiple bilateral, largest 8mm right mid lung following CXRs 08/21/18 atelectasis vs infltrate, 09/13/18 lung nodule Medicare annual wellness visit, subsequent 02/04/2021 Medicare Part B: Last done: 02/04/2021 Mixed hyperlipidemia 10/28/2011 Nonrheumatic aortic valve stenosis 08/12/2021 2020: Mild-Mod. Prostate cancer (HCC) 04/27/2017 Right inguinal hernia Vitamin D deficiency 01/07/2020 Previous Surgical History PAST SURGICAL HISTORY Procedure Laterality Date 2D ECHO (EXEP) 02/09/2021 EF=55%, Mod LVH, 1-2+ , mild dyast dysf AMPUTATION TOE,MT-P JT Left 04/2020 second toe-Dr. Lai ARTHROSCOPY KNEE DIAGNOSTIC W/WO SYNOVIAL BX SPX 08/2003 Arthroscopy, knee, meniscus CARPAL TUNNEL Right 05/18/2018 Dr. Oliver Devlin COLONOSCOPY W/BIOPSY SINGLE/MULTIPLE 02/25/2009 LAPAROSCOPY SURG RPR INITIAL INGUINAL HERNIA 05/28/2013 Right PAST SURGICAL HISTORY OF Left inguninal hernia repair REMV CATARACT EXTRACAP,INSERT LENS Bilateral 2021 TONSILLECTOMY PRIMARY/SECONDARY <AGE 11 Tonsillectomy and adnoids TOTAL KNEE REPLACEMENT 03/25/2014 left TKR, Dr. Posada TOTAL KNEE REPLACEMENT Right 03/19/2021 Family History FAMILY HISTORY Problem Relation Age of Onset other (MACULAR DEGENERATION) Mother other (CHF) Father Patient Allergies ALLERGIES Allergen Reactions Norvasc [Amlodipine] Other: See Comments Leg edema Current Medications Current Outpatient Medications on File Prior to Visit Medication Sig mirabegron (MYRBETRIQ) 50 mg Tb24 Take by mouth. Per Urology, Dr. Morejon albuterol HFA (PROVENTIL HFA, VENTOLIN HFA) 90 mcg/actuation inhaler Inhale 2 Puffs as instructed every 4 hours as needed for wheezing/shortness of breath. metoprolol succinate ER (TOPROL XL) 50 mg 24 hr tablet Take 1 tablet by mouth once daily. Increasedby cardio 07/2022 furosemide (LASIX) 20 mg tablet Take 2 tablets by mouth once daily. potassium chloride ER (KLOR-CON M20) 20 mEq tablet Take 1 tablet by mouth twice daily. Omeprazole Magnesium (PRILOSEC OTC) 20 mg tablet Take 1 tablet by mouth daily before breakfast. 1/2hr before meal. tamsulosin (FLOMAX) 0.4 mg Take 1 capsule by mouth twice daily. Per Urology Dr. Morejon finasteride (PROSCAR) 5 mg tablet Take 5 mg by mouth once daily. Cholecalciferol, Vitamin D3, 125 mcg (5,000 unit) cap Take 1 capsule by mouth once daily. MV with Ssb-Grgwyvos-Tgbecq (CENTRUM SILVER) 0.4-300-250 mg-mcg-mcg tab Take 1 tablet by mouth oncedaily. Blood Pressure Monitor (BLOOD PRESSURE KIT) 1 Each twice daily. predniSONE (DELTASONE) 5 mg tablet TAKE 1 TABLET EVERY DAY abiraterone 250 mg tablet Take 4 tablets by mouth once daily on an empty stomach (1 hour before or 2 hours after a meal) enzalutamide (XTANDI) 80 mg tablet Take 2 tablets (160 mg) by mouth once daily. ZINC ORAL Take 1 tablet by mouth once daily. aspirin, enteric coated (ASPIRIN, ENTERIC COATED) 81 mg EC tablet Take 81 mg by mouth once daily. (Patient not taking: Reported on 08/25/2022) No current facility-administered medications on file prior to visit. Social History Social History Tobacco Use Smoking status: Never Smokeless tobacco: Never Vaping Use Vaping Use: Never used Substance Use Topics Alcohol use: No Drug use: No Review of Symptoms REVIEW OF SYSTEMS GENERAL: No weight loss, malaise or fevers NECK: Negative for lumps, goiter, pain and significant neck swelling RESPIRATORY: Negative for cough, hemoptysis, wheezing, COPD, dyspnea or shortness of breath CARDIOVASCULAR: Negative for chest pain, leg swelling, hypertension, CHF or palpitations See hpi EXAM: BP 132/86 (BP Site: Left Arm, BP Position: Sitting, BP Cuff Size: Large Adult) Pulse 96 Temp 37C (98.6 F) Resp 18 Wt 111.6 kg (246 lb) BMI 35.30 kg/m General Appearance: Well appearing, alert, in no acute distress, well-hydrated, well nourished.. Neck: Supple, no adenopathy; thyroid symmetric, normal size, no bruits. Lungs: Lungs clear to auscultation. No wheezing, rhonchi, rales.. Heart: RRR without murmur, gallop, or rubs. No ectopy. Extremities: No deformities, edema, skin discoloration, clubbing or cyanosis. Good capillary refill. . Neurologic: Gait normal. Reflexes normal and symmetric. Sensation grossly intact.. Health Maintenance List ADVANCE DIRECTIVE DISCUSSION due on 05/08/2022 SHINGRIX VACCINE(1 of 2) due on 03/09/2023 COVID-19 VACCINE(1) due on 03/09/2023 INFLUENZA(Season Ended) due on 01/06/2023 DIABETES SCREEN due on 09/02/2025 DTAP,TDAP,TD(3 - Td or Tdap) due on 01/06/2030 DEPRESSION ASSESSMENT Completed PNEUMOCOCCAL: 65+ Completed Data reviewed Component Latest Ref Rng & Units 09/02/2022 WBC 3.70 - 11.00 k/uL 8.35 RBC 4.20 - 6.00 m/uL 4.33 Hemoglobin 13.0 - 17.0 g/dL 11.5 (L) Hematocrit 39.0 - 51.0 % 36.8 (L) MCV 80.0 - 100.0 fL 85.0 MCH 26.0 - 34.0 pg 26.6 MCHC 30.5 - 36.0 g/dL 31.3 RDW-CV 11.5 - 15.0 % 13.9 Platelet Count 150 - 400 k/uL 418 (H) MPV 9.0 - 12.7 fL 9.1 Neut% % 65.5 Abs Neut (ANC) 1.45 - 7.50 k/uL 5.47 Lymph% % 14.3 Abs Lymph 1.00 - 4.00 k/uL 1.19 [place]% % 14.1 Abs [place] <0.87 k/uL 1.18 (H) Eosin% % 4.9 Abs Eosin <0.46 k/uL 0.41 Baso% % 0.5 Abs Baso <0.11 k/uL 0.04 Immature Gran % % 0.7 IMMATURE GRANS (ABS) <0.10 k/uL 0.06 NRBC /100 WBC 0.0 Absolute nRBC <0.01 k/uL <0.01 DTYPE Auto Color Yellow Yellow Clarity Clear Cloudy (A) Glucose, Urine Trace, Negative Trace Bilirubin, Urine Negative Negative Ketones, Urine Trace, Negative Negative Specific [place], Ur 1.005 - 1.030 1.028 Hemoglobin/Blood,Ur Negative, Trace Negative pH, Urine 5.0 - 8.0 6.0 Protein, Urine Trace, Negative Trace Urobilinogen Negative Negative Nitrites Negative 2+ (A) Leukest Negative, 25 Alice/uL 500 Alice/uL (A) WBC, Urine 0-5 /HPF >25 /HPF (A) RBC, Urine 0-3 /HPF 3-5 /HPF (A) Bacteria None Seen /HPF Rare (A) Epithelial Cells /HPF Few Non-Squamous Epithelial Cells None Seen /HPF Few (A) Protein, Total 6.3 - 8.0 g/dL 8.4 (H) Albumin 3.9 - 4.9 g/dL 3.3 (L) Calcium 8.5 - 10.2 mg/dL 9.7 Bilirubin, Total 0.2 - 1.3 mg/dL 0.4 Alkaline Phosphatase 38 - 113 U/L 81 AST 14 - 40 U/L 22 ALT 10 - 54 U/L 15 Glucose 74 - 99 mg/dL 91 BUN 9 - 24 mg/dL 18 Creatinine 0.73 - 1.22 mg/dL 0.85 Sodium 136 - 144 mmol/L 136 Potassium 3.7 - 5.1 mmol/L 4.2 Chloride 97 - 105 mmol/L 97 CO2 22 - 30 mmol/L 25 Anion Gap 9 - 18 mmol/L 14 eGFR >=60 mL/min/1.73m 87 Total Cholesterol, Nonfasting <200 mg/dL 170 Triglycerides, Nonfasting <150 mg/dL 94 HDL Cholesterol, Nonfasting >39 mg/dL 45 LDL Cholesterol, Nonfasting <100 mg/dL 106 (H) Non HDL Cholesterol, Nonfasting <130 mg/dL 125 VLDL Cholesterol, Nonfasting <30 mg/dL 19 Total Chol/HDL Ratio, Nonfasting <5.10 mg/dL 3.78 LDL/HDL Ratio, Nonfasting <2.54 mg/dL 2.36 PSA <2.60 ng/mL 0.16 ASSESSMENT/PLAN: 1. Essential hypertension, benign - ICD9: 401.1, ICD10: I10 (primary diagnosis) - good control - Continue current medication(s) - Recommended regular aerobic exercise. - Recommend home blood pressure monitoring, to bring results in on next visit - Goal of BP <130/80 - METOPROLOL SUCCINATE ER 50 MG TABLET,EXTENDED RELEASE 24 HR - COMP METABOLIC PANEL - URINALYSIS, WITH MICROSCOPIC - CBC + DIFF 2. Mixed hyperlipidemia - ICD9: 272.2, ICD10: E78.2 - control improved - Encouraged following a low fat, low cholesterol diet. - Discussed the benefits of regular aerobic exercise and weight loss. - Encouraged following a low carbohydrate, healthy oil intake diet. - LIPID PANEL, NONFASTING 3. Urinary frequency - ICD9: 788.41, ICD10: R35.0 Chronic but acutely worse UA shows signs of possible infection. Will check culture and start atb. - Patient education for prevention given - URINE CULTURE 4. Prostate cancer (HCC) - ICD9: 185, ICD10: C61 - CBC + DIFF 5. Gastroesophageal reflux disease with esophagitis without hemorrhage - ICD9: 530.81, 530.10, ICD10: K21.00 6. Medication management - ICD9: V58.69, ICD10: Z79.899 - VITAMIN B12 BLOOD - COMP METABOLIC PANEL - MAGNESIUM BLD 7. Vitamin D deficiency - ICD9: 268.9, ICD10: E55.9 - VITAMIN D 25 HYDROXY 8. Nonrheumatic aortic valve stenosis - ICD9: 424.1, ICD10: I35.0 Cont with cardio. Discussed patient's concerns of shoulder pain and n/t in hands and he elects to wait until after his aortic valve replacement surgery and recovery to pursue any additional testing. Follow up wellness in 6 months. Labs prior Return sooner prn. Carmen England PA-C documented in this encounterJ.W. [facility]05-04-[facility] Nurse Note* Rosa Isela Camara LPN - 09/08/2022 8:37 AM EDT Patient presents with: Imm/Inj Pt is identified by name and birthdate: Yes. Allergies and medications reviewed. Latex allergy? No. Does this patient have: Unplanned weight loss or gain of greater than 10 pounds, or a change of appetite over the last year? No Does the patient have any concerns about safety in the home/falls? Yes Has the patient fallen in the past year? yes Does the patient have difficulty performing or completing routine daily living activities? No Does this patient have concerns about personal safety? No Is patient having pain? Pain: No=0 (pain 0 on a scale of 0-10). Health Maintenance: Reviewed and updated. Does patient have MyChart access or Caregiver proxy: yes Pt/Caregiver willingness and readiness to learn assessed: Yes. Barriers: none Rosa Isela Camara LPN documented in this encounterJ.W. [facility]05-02-2023 NoteDx: Procedure: TF TAVR Date/Time: 09/26/22 at 7:30 am Surgeon: Dr. Gonsalves/ Dr. Carey Location: [facility] Admission: A Anesthesia: [facility]04-27-2023 NoteHNO ID: [id number] Author: Leatha Beltran MA Service: ? Author Type: Apparel Sales Leader Type: Progress Notes Filed: 09/01/2022 2:56 PM Note Text: Scan on 08/31/2022 12:47 PM by External Provider, PA-C: Cardiac Cath Leatha Beltran [facility]04-27-2023 [facility]04-27-[address] Coto, pt with severe Aortic Stenosis, pt has had echo and cath done, cath shows minimal CAD, being referred for TAVR. Images uploaded to pacs. I placed CTA/CXR/labs and TAVR case request as pt has [employer]. Sly Hudson LAND DEPARTMENT HEAD to sign. Michelle Lopez notified to start TAVR auth. I mailed new pt letter, with oral hydration instructions to pt. Pt is having labs drawn 09/02 or Mon May 1 @ PCP office/Dr. Tolentino at [facility] [phone]. [facility]04-27-2023 History of Present illness Narrative* Leatha Beltran MA - 09/01/2022 12:47 PM EDT Scan on 08/31/2022 12:47 PM by External Provider, ROD: Cardiac Cath Leatha Beltran MA documented in this encounterJ.W. Ruby [facility]04-27-2023 History of Present illness Narrative* Leatha Beltran MA - 09/01/2022 12:45 PM EDT Scan on 08/29/2022 by External Provider, ROD: Consultation - Scan on 08/29/2022 1:20 PM by External Provider, ROD: Consultation - Leatha Beltran MA documented in this encounterJ.W. Ruby [facility]04-20-2023 NoteHNO ID: [id number] Author: Delicia Franklin LPN Service: ? Author Type: ? Type: Progress Notes Filed: 08/26/2022 11:42 AM Note Text: Scan on 08/25/2022 11:12 AM by External Provider: [facility]04-20-2023 History of Present illness Narrative* Delicia Franklin LPN - 08/25/2022 2:44 PM EDT Scan on 08/25/2022 11:12 AM by External Provider: Chemistry documented in this encounterJ.W. [facility]04-20-2023 [facility]04-20-2023 [facility]04-20-2023 History of Present illness Narrative* GABRIELA Fields - 08/25/2022 10:17 AM EDT This note was created using NoteWriter. Subjective Morris Baez is a 81 year old male. HPI 81-year-old male presents for cough and congestion. Patient states he has had nasal congestion,chest congestion cough for about 2 weeks. He was here last week and had a COVID test and a chest x-ray. COVID test was negative. Chest x- ray was normal. He was offered an inhaler, but decided he justwanted to try to ride it out and see if he can get better with OTC medications. Patient states his symptoms are not improving. He is not sleeping at night due to cough. He has no chest pain or shortness of breath. He does have a heart cath scheduled next week. No new symptoms of chest pain, arm pain, jaw pain. He denies any vomiting or diarrhea. He does have low-grade fever today of 99 F. No history of COPD or asthma. 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 BENIGN HYPERTENSION 10/17/2005 Bone metastases 12/16/2020 Diverticulosis of colon 02/25/2009 Erectile dysfunction due to arterial insufficiency 04/15/2015 Functional diarrhea 01/14/2009 Gastroesophageal reflux disease with esophagitis without hemorrhage 08/04/2020 History of kidney stones 10/28/2011 04/21/2022 Hypertrophy of prostate without urinary obstruction and other lower urinary tract symptoms (LUTS) Lipoma of left upper extremity 02/04/[address] 03/10/2022 DPA: Cheryl () Lung nodule seen on imaging study 01/02/2019 12/31/19 CT chest WO: stable nodules, largest 8mm: 1 year f/u 09/27/18 CT chest IVCON: multiple bilateral, largest 8mm right mid lung following CXRs 08/21/18 atelectasis vs infltrate, 09/13/18 lung nodule Medicare annual wellness visit, subsequent 02/04/2021 Medicare Part B: Last done: 02/04/2021 Mixed hyperlipidemia 10/28/2011 Nonrheumatic aortic valve stenosis 08/12/2021 2020: Mild-Mod. Prostate cancer (HCC) 04/27/2017 Right inguinal hernia Vitamin D deficiency 01/07/2020 PAST SURGICAL HISTORY Procedure Laterality Date 2D ECHO (EXEP) 02/09/2021 EF=55%, Mod LVH, 1-2+ , mild dyast dysf AMPUTATION TOE,MT-P JT Left 04/2020 second toe-Dr. Lai ARTHROSCOPY KNEE DIAGNOSTIC W/WO SYNOVIAL BX SPX 08/2003 Arthroscopy, knee, meniscus CARPAL TUNNEL Right 05/18/2018 Dr. Oliver Devlin COLONOSCOPY W/BIOPSY SINGLE/MULTIPLE 02/25/2009 LAPAROSCOPY SURG RPR INITIAL INGUINAL HERNIA 05/28/2013 Right PAST SURGICAL HISTORY OF Left inguninal hernia repair REMV CATARACT EXTRACAP,INSERT LENS Bilateral 2021 TONSILLECTOMY PRIMARY/SECONDARY <AGE 11 Tonsillectomy and adnoids TOTAL KNEE REPLACEMENT 03/25/2014 left TKR, Dr. Posada TOTAL KNEE REPLACEMENT Right 03/19/2021 ALLERGIES Norvasc [Amlodipine] MEDICATIONS metoprolol succinate ER (TOPROL XL) 50 mg 24 hr tablet Take 1 tablet by mouth once daily. Increasedby cardio 07/2022 furosemide (LASIX) 20 mg tablet Take 2 tablets by mouth once daily. potassium chloride ER (KLOR-CON M20) 20 mEq tablet Take 1 tablet by mouth twice daily. Omeprazole Magnesium (PRILOSEC OTC) 20 mg tablet Take 1 tablet by mouth daily before breakfast. 1/2hr before meal. tamsulosin (FLOMAX) 0.4 mg Take 1 capsule by mouth twice daily. Per Urology Dr. Morejon finasteride (PROSCAR) 5 mg tablet Take 5 mg by mouth once daily. Cholecalciferol, Vitamin D3, 125 mcg (5,000 unit) cap Take 1 capsule by mouth once daily. MV with Twy-Tzzbkpgt-Jjzvri (CENTRUM SILVER) 0.4-300-250 mg-mcg-mcg tab Take 1 tablet by mouth oncedaily. Blood Pressure Monitor (BLOOD PRESSURE KIT) 1 Each twice daily. predniSONE (DELTASONE) 5 mg tablet TAKE 1 TABLET EVERY DAY abiraterone 250 mg tablet Take 4 tablets by mouth once daily on an empty stomach (1 hour before or 2 hours after a meal) enzalutamide (XTANDI) 80 mg tablet Take 2 tablets (160 mg) by mouth once daily. ZINC ORAL Take 1 tablet by mouth once daily. aspirin, enteric coated (ASPIRIN, ENTERIC COATED) 81 mg EC tablet Take 81 mg by mouth once daily. (Patient not taking: Reported on 08/25/2022) FAMILY HISTORY Problem Relation Age of Onset other (MACULAR DEGENERATION) Mother other (CHF) Father Social History Tobacco Use Smoking status: Never Smokeless tobacco: Never Vaping Use Vaping Use: Never used Substance Use Topics Alcohol use: No Drug use: No Review of Systems Constitutional: Negative for chills and fever. HENT: Positive for congestion. Negative for sore throat. Respiratory: Positive for cough. Negative for shortness of breath. Gastrointestinal: Negative for diarrhea and vomiting. Objective BP 158/92 Pulse 95 Temp 37.3 C (99.1 F) (Tympanic) Resp 20 Wt 112.9 kg (249 lb) SpO2 98% BMI 35.73 kg/m Physical Exam Vitals and nursing note reviewed. Constitutional: General: He is not in acute distress. Appearance: Normal appearance. He is not toxic-appearing. HENT: Nose: Nose normal. Mouth/Throat: Mouth: Mucous membranes are moist. Eyes: Conjunctiva/sclera: Conjunctivae normal. Cardiovascular: Rate and Rhythm: Normal rate and regular rhythm. Pulmonary: Effort: Pulmonary effort is normal. Breath sounds: Decreased breath sounds present. Comments: Breath sounds slightly diminished, but clear throughout. Pulse ox 98% on room air. No respiratory distress. Skin: General: Skin is warm and dry. Neurological: Mental Status: He is alert. Assessment and Plan ASSESSMENT/PLAN: 1. Acute cough - ICD9: 786.2, ICD10: R05.1 (primary diagnosis) - XR CHEST 2V FRONTAL/LAT-no acute findings 2. Sinobronchitis - ICD9: 473.9, 490, ICD10: J32.9, J40 -Symptoms x2 weeks. - Will begin treatment with Doxycycline -Rx for albuterol inhaler, patient has had in past for bronchitis which helped - Supportive care with plenty of fluids, rest, and analgesia prn. Diagnosis and treatment plan were discussed and questions were answered to the patient's satisfaction. Pt acknowledged understanding of concepts and follow up plan. Specific signs and symptoms that would indicate the need for higher level of care were discussed in detail warranting prompt ER evaluation. GABRIELA Fields documented in this encounterCynthia [place] [id number] Miscellaneous Notes* Telephone Encounter - Chinyere Schuster Ma - 08/19/2022 7:47 AM EDT Patient spouse was notified Chinyere Schuster Ma * Telephone Encounter - Chelsea Beltran APRN.CNP - 08/19/2022 7:13 AM EDT Negative for COVID please notify thank you documented in this encounterJ.W. [facility]04-13-2023 [facility]04-13-2023 [facility]04-13-2023 History of Present illness Narrative* Jose Jane MD - 08/18/2022 9:04 AM EDT Patient presents with: Chest Congestion: cough,sob, tingling in hands and arms x last night HPI: Feeling sick for 5 days with body aches and headache. URI symptoms since last night. He has been around sick grandchildren. Positive symptoms: Cough, Shortness of breath, Nasal Congestion, Rhinorrhea, Body Aches, Headache, cattle prod sensation shooting down the arms with coughs (started last night), bilateral hand tingling intermittently for a month, sees chiropractor for neck pain, poor sleep and worry for the last several months because of health issues (prostate cancer, aortic stenosis, urinary retention). Negative symptoms: Wheezing, Chest tightness, Chest pain, Fever, Vomiting, Diarrhea, Sore throat, OTC: Cold Medicine Heart cath scheduled in a few weeks. On lupron for metastatic prostate cancer (T12). 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 BENIGN HYPERTENSION 10/17/2005 Bone metastases 12/16/2020 Diverticulosis of colon 02/25/2009 Erectile dysfunction due to arterial insufficiency 04/15/2015 Functional diarrhea 01/14/2009 Gastroesophageal reflux disease with esophagitis without hemorrhage 08/04/2020 History of kidney stones 10/28/2011 04/21/2022 Hypertrophy of prostate without urinary obstruction and other lower urinary tract symptoms (LUTS) Lipoma of left upper extremity 02/04/[address] 03/10/2022 DPA: Cheryl () Lung nodule seen on imaging study 01/02/2019 12/31/19 CT chest WO: stable nodules, largest 8mm: 1 year f/u 09/27/18 CT chest IVCON: multiple bilateral, largest 8mm right mid lung following CXRs 08/21/18 atelectasis vs infltrate, 09/13/18 lung nodule Medicare annual wellness visit, subsequent 02/04/2021 Medicare Part B: Last done: 02/04/2021 Mixed hyperlipidemia 10/28/2011 Nonrheumatic aortic valve stenosis 08/12/2021 2020: Mild-Mod. Prostate cancer (HCC) 04/27/2017 Right inguinal hernia Vitamin D deficiency 01/07/2020 MEDICATIONS: Current Outpatient Medications Medication Sig metoprolol succinate ER (TOPROL XL) 50 mg 24 hr tablet Take 1 tablet by mouth once daily. Increasedby cardio 07/2022 furosemide (LASIX) 20 mg tablet Take 2 tablets by mouth once daily. potassium chloride ER (KLOR-CON M20) 20 mEq tablet Take 1 tablet by mouth twice daily. Omeprazole Magnesium (PRILOSEC OTC) 20 mg tablet Take 1 tablet by mouth daily before breakfast. 1/2hr before meal. tamsulosin (FLOMAX) 0.4 mg Take 1 capsule by mouth twice daily. Per Urology Dr. Morejon finasteride (PROSCAR) 5 mg tablet Take 5 mg by mouth once daily. Cholecalciferol, Vitamin D3, 125 mcg (5,000 unit) cap Take 1 capsule by mouth once daily. MV with Ohj-Rmqoolxk-Ckmuib (CENTRUM SILVER) 0.4-300-250 mg-mcg-mcg tab Take 1 tablet by mouth oncedaily. Blood Pressure Monitor (BLOOD PRESSURE KIT) 1 Each twice daily. predniSONE (DELTASONE) 5 mg tablet TAKE 1 TABLET EVERY DAY abiraterone 250 mg tablet Take 4 tablets by mouth once daily on an empty stomach (1 hour before or 2 hours after a meal) enzalutamide (XTANDI) 80 mg tablet Take 2 tablets (160 mg) by mouth once daily. ZINC ORAL Take 1 tablet by mouth once daily. aspirin, enteric coated (ASPIRIN, ENTERIC COATED) 81 mg EC tablet Take 81 mg by mouth once daily. No current facility-administered medications for this visit. ALLERGIES: ALLERGIES Allergen Reactions Norvasc [Amlodipine] Other: See Comments Leg edema VITALS: BP 128/74 Pulse 96 Temp 36.7 C (98.1 F) Resp 18 Wt 115.7 kg (255 lb) SpO2 96% BMI 36.59kg/m PHYSICAL EXAM: GEN: Pleasant, in no acute distress. Accompanied by his and daughter. HEENT: PERRL, EOMI, conjunctiva clear Ears: canals clear. Left TM with sclerosis, otherwise TMs without erythema, bulge, or effusion Sinuses: non-tender frontal sinus, non-tender maxillary sinuses Throat: moist mucous membranes, mild erythema, no exudate Neck: supple, no thyromegaly, no lymphadenopathy, no midline or paraspinal tenderness HEART: regular rate and rhythm, 3/6 systolic murmurs (loudest at RUSB) LUNGS: Solitary left upper lung inspiratory crackle, no increased WOB EXT: normal hand automation consultant. ASSESSMENT/PLAN: 1. URI, acute - ICD9: 465.9, ICD10: J06.9 (primary diagnosis) 2. Acute cough - ICD9: 786.2, ICD10: R05.1 3. SOB (shortness of breath) - ICD9: 786.05, ICD10: R06.02 - XR CHEST 2V FRONTAL/LAT -no acute pneumonia or changes.. - 2019 CORONAVIRUS -consider virtual follow-up to discuss antiviral medication if positive. He has used inhalers for bronchitis in the past. Declines prescription. He would like to use conservative treatment and let it run its course. Use as needed xxhy-uem-wkaprpt cough and cold medicines. 4. Numbness and tingling in both hands - ICD9: 782.0, ICD10: R20.0, R20.2 5. Malignant neoplasm metastatic to bone (HCC) - ICD9: 198.5, ICD10: C79.51 6. Anterolisthesis of cervical spine - ICD9: 756.12, ICD10: M43.12 - XR CERV OTHER 4V AP/LAT/OBL No acute fracture seen. There is grade 1 C3 on C4 and C4 on C5 anterolisthesis. There is C3-4, C4-5, C5-6 and C6-7 disc space narrowing. Moderate osteophyte formation is demonstrated, with facet arthrosis. Left-sided C5-6 and C6-7 neural foraminal narrowing is noted. The prevertebral soft tissues are normal. IMPRESSION: Cervical spine degenerative changes with multilevel disc space narrowing and left-sidedneural foraminal narrowing. No lytic lesions. Copy of imaging provided at his request for his chiropractor. Follow up with PCP if worsening or not improving. Jose Jane MD documented in this encounterJ.W. [facility]03-30-2023 Note[facility]03-30-2023 History of Present illness Narrative* Leatha Beltran MA - 08/04/2022 3:52 PM EDT Scan on 08/01/2022 3:40 PM by External Provider: Chemistry Scan on 08/01/2022 3:50 PM by External Provider: Consultation - Cardiology Scan on 08/01/2022 4:16 PM by External Provider: Chemistry Scan on 08/01/2022 11:55 PM by External Provider: X-ray Leatha Beltran MA documented in this encounterJ.W. Ruby [facility]03-28-2023 Miscellaneous Notes* Telephone Encounter - Carmen England PA-C - 08/02/2022 11:05 AM EDT The following approved medication requests have been transmitted electronically. Requested Prescriptions Signed Prescriptions Disp Refills furosemide (LASIX) 20 mg tablet 180 tablet 1 Sig: Take 2 tablets by mouth once daily. Authorizing Provider: CARMEN ENGLAND PA-C * Telephone Encounter - Delicia Franklin LPN - 08/02/2022 9:11 AM EDT Last refill 05/31/22 Qty 30 with 3 refills. Pt is taking 2 tablets daily. Pended new quantity. BLADE 07/14/22 NOV 09/08/22 Delicia Franklin LPN documented in this encounterJ.W. Ruby [facility] Hospital03-24-2023 Miscellaneous Notes* Telephone Encounter - KARIE Romero - 07/29/2022 2:21 PM EDT TC to patient who verbalizes understanding and has no questions at this time. KARIE Romero * Telephone Encounter - Sheila Jeronimo Cma - 07/26/2022 8:36 AM EDT Left message for patient to return call to office Sheila Jeronimo Cma * Telephone Encounter - Darrin Tolentino MD - 07/25/2022 9:48 PM EDT Let patient know potassium level much better. documented in this encounterJ.W. Ruby [facility]03-20-2023 [facility]03-20-2023 Miscellaneous Notes* Telephone Encounter - Leatha Beltran MA - 07/25/2022 11:42 AM EDT Patient notified and voiced understanding. Leatha Beltran MA * Telephone Encounter - Darrin Tolentino MD - 07/24/2022 12:50 PM EDT Let patient know CT chest shows one previous nodule that was new has resolved and all the others are stable. No further CT follow needed. documented in this encounterJ.W. Ruby [facility]03-16-2023 Note[facility]03-16-2023 History of Present illness Narrative* Mamie Barroso RT(R) - 07/21/2022 10:00 AM EDT Radiology Service Progress Note PATIENT NAME: Morris Baez DATE OF SERVICE: July 21, 2022 TIME: 3:51 PM PATIENT IDENTITY VERIFICATION COMPLETED USING TWO (2) IDENTIFIERS: Name and Date of confirmedby patient verbally. FALL SCREENING: Has the patient had 2 falls in the last year or 1 fall with injury or currently using an Ambulatory Assistive Device (Walker, Cane, Wheelchair, Crutches, etc.)? No PATIENT GENDER DATA: Male PATIENT RELEVANT IMPLANT DATA REVIEWED: Yes RADIOLOGY DEPARTMENT: CT; Exam(s) Completed: Chest PERIPHERAL IV DATA: Not applicable SIGNED BY: RT Kaitlin(R) July 21, 2022 3:51 PM documented in this encounterJ.W. Ruby [facility]03-09-2023 [facility]03-09-2023 History of Present illness Narrative* Darrin Tolentino MD - 07/14/2022 10:26 AM EST Chief Complaint Patient presents with: Recheck HPI Morris Baez is a 81 year old male who presents here today for 2 follow up on edema. Patient was in [facility] ER 07/10/2022 for urinary retention. [facility] ER was unable to place lockwood and patient was sent to [facility]. Patient was examined by urology and lockwood was placed. Patient to f/u with urology. At last appt with me patient discussed concerns over leg edema. It was felt this may of been secondary to the Norvasc and this was stopped. He was to continue the lasix at 40 mg a day for a week but it BP started to get low and swelling was better he had been instructed to return to just 20 mg of lasix a day. Since being seen two weeks ago the swelling has gone done some. Past medical history, appointments, medications, allergies reviewed. 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 BENIGN HYPERTENSION 10/17/2005 Bone metastases (HCC) 12/16/2020 Diverticulosis of colon 02/25/2009 Erectile dysfunction due to arterial insufficiency 04/15/2015 Functional diarrhea 01/14/2009 Gastroesophageal reflux disease with esophagitis without hemorrhage 08/04/2020 History of kidney stones 10/28/2011 04/21/2022 Hypertrophy of prostate without urinary obstruction and other lower urinary tract symptoms (LUTS) Lipoma of left upper extremity 02/04/[address] 03/10/2022 DPA: Cheryl () Lung nodule seen on imaging study 01/02/2019 12/31/19 CT chest WO: stable nodules, largest 8mm: 1 year f/u 09/27/18 CT chest IVCON: multiple bilateral, largest 8mm right mid lung following CXRs 08/21/18 atelectasis vs infltrate, 09/13/18 lung nodule Medicare annual wellness visit, subsequent 02/04/2021 Medicare Part B: Last done: 02/04/2021 Mixed hyperlipidemia 10/28/2011 Nonrheumatic aortic valve stenosis 08/12/2021 2020: Mild-Mod. Prostate cancer (HCC) 04/27/2017 Right inguinal hernia Vitamin D deficiency 01/07/2020 Previous Surgical History PAST SURGICAL HISTORY Procedure Laterality Date 2D ECHO (EXEP) 02/09/2021 EF=55%, Mod LVH, 1-2+ , mild dyast dysf AMPUTATION TOE,MT-P JT Left 04/2020 second toe-Dr. Lai ARTHROSCOPY KNEE DIAGNOSTIC W/WO SYNOVIAL BX SPX 08/2003 Arthroscopy, knee, meniscus CARPAL TUNNEL Right 05/18/2018 Dr. Oliver Devlin COLONOSCOPY W/BIOPSY SINGLE/MULTIPLE 02/25/2009 LAPAROSCOPY SURG RPR INITIAL INGUINAL HERNIA 05/28/2013 Right PAST SURGICAL HISTORY OF Left inguninal hernia repair REMV CATARACT EXTRACAP,INSERT LENS Bilateral 2021 TONSILLECTOMY PRIMARY/SECONDARY <AGE 11 Tonsillectomy and adnoids TOTAL KNEE REPLACEMENT 03/25/2014 left TKR, Dr. Posada TOTAL KNEE REPLACEMENT Right 03/19/2021 Family History FAMILY HISTORY Problem Relation Age of Onset other (MACULAR DEGENERATION) Mother other (CHF) Father Patient Allergies ALLERGIES Allergen Reactions Norvasc [Amlodipine] Other: See Comments Leg edema Current Medications Current Outpatient Medications on File Prior to Visit Medication Sig cephALEXin (KEFLEX) 500 mg capsule Take 1 capsule by mouth twice daily for 5 days. potassium chloride ER (KLOR-CON M20) 20 mEq tablet Take 1 tablet by mouth twice daily. furosemide (LASIX) 20 mg tablet Take 2 tablets by mouth once daily. abiraterone 250 mg tablet Take 4 tablets by mouth once daily on an empty stomach (1 hour before or 2 hours after a meal) enzalutamide (XTANDI) 80 mg tablet Take 2 tablets (160 mg) by mouth once daily. metoprolol succinate ER (TOPROL XL) 25 mg 24 hr tablet Take 1 tablet by mouth once daily. Omeprazole Magnesium (PRILOSEC OTC) 20 mg tablet Take 1 tablet by mouth daily before breakfast. 1/2hr before meal. tamsulosin (FLOMAX) 0.4 mg Take 1 capsule by mouth twice daily. Per Urology Dr. Morejon predniSONE (DELTASONE) 5 mg tablet Take 1 tablet by mouth once daily. finasteride (PROSCAR) 5 mg tablet Take 5 mg by mouth once daily. ZINC ORAL Take 1 tablet by mouth once daily. Cholecalciferol, Vitamin D3, 125 mcg (5,000 unit) cap Take 1 capsule by mouth once daily. MV with Tpw-Kbfczcsf-Dsygkn (CENTRUM SILVER) 0.4-300-250 mg-mcg-mcg tab Take 1 tablet by mouth oncedaily. Blood Pressure Monitor (BLOOD PRESSURE KIT) 1 Each twice daily. aspirin, enteric coated (ASPIRIN, ENTERIC COATED) 81 mg EC tablet Take 81 mg by mouth once daily. No current facility-administered medications on file prior to visit. Social History Social History Tobacco Use Smoking status: Never Smokeless tobacco: Never Vaping Use Vaping Use: Never used Substance Use Topics Alcohol use: No Drug use: No Review of Symptoms REVIEW OF SYSTEMS RESPIRATORY: Negative for wheezing, COPD, dyspnea or shortness of breath CARDIOVASCULAR: Negative for chest pain, leg swelling, hypertension, CHF or palpitations NEURO: No history of headaches, syncope, paralysis, seizures, dizziness, or tremors EXAM: BP 152/98 (BP Site: Left Arm, BP Position: Sitting, BP Cuff Size: Large Adult) Pulse 74 Resp 18 Wt 115.2 kg (254 lb) BMI 36.45 kg/m BP 138/82 Pulse 74 Resp 18 Wt 115.2 kg (254 lb) BMI 36.45 kg/m General Appearance: Well appearing, alert, in no acute distress, well-hydrated, well nourished.. Lungs: Lungs clear to auscultation. No wheezing, rhonchi, rales.. Heart: RRR without murmur, gallop, or rubs. No ectopy. Extremities: lower legs still show edema but instead of being 2+ they are 1+ and not tender. . Health Maintenance List ADVANCE DIRECTIVE DISCUSSION due on 05/08/2022 INFLUENZA(1) due on 11/04/2022 SHINGRIX VACCINE(1 of 2) due on 03/09/2023 COVID-19 VACCINE(1) due on 03/09/2023 DIABETES SCREEN due on 07/10/2025 DTAP,TDAP,TD(3 - Td or Tdap) due on 01/06/2030 DEPRESSION ASSESSMENT Completed PNEUMOCOCCAL: 65+ Completed Data reviewed A/P ASSESSMENT/PLAN: 1. Essential hypertension, benign - ICD9: 401.1, ICD10: I10 (primary diagnosis) - good control - Continue current medication(s) - Recommended regular aerobic exercise. - Recommend home blood pressure monitoring, to bring results in on next visit - Goal of BP <130/80 2. Bilateral leg edema - ICD9: 782.3, ICD10: R60.0 - improved with being off the Norvasc. Will cont current meds as is at this time. Darrin Tolentino MD documented in this encounterJ.W. [facility]03-07-2023 Miscellaneous Notes* Telephone Encounter - Shoshana Sanchez - 07/12/2022 11:12 AM EST I called his daughter and suggested that he follow up with [facility]. She was going to call for anappt. Thank you, Shoshana Sanchez * Telephone Encounter - Sisi Carr PA-C - 07/12/2022 10:08 AM EST Pt lives in [place], may want to go to [facility] to schedule for . Am and pm appointments, but [place] would be better for him. Sisi Carr PA-C * Telephone Encounter - Shoshana Sanchez - 07/12/2022 9:40 AM EST Pt was in [facility] ER for urinary retention. He needs to make a follow up appt for the catheter . Please advise. Thank you, Shoshana Sanchez documented in this encounterJ.W. [facility]03-06-2023 Miscellaneous Notes* Telephone Encounter - Dalila Vasquez RN - 07/11/2022 1:22 PM EST EMERGENCY ROOM CALL BACK Today's date: July 11, 2022 Primary Cancer Diagnosis: Prostate Reason for Emergency Room Visit: Urinary retention, needed urology to place catheter Time of day presented to Emergency Room 1938 If Mon-Monday during business hours: N/A Psychosocial Risk Factors: None FOLLOW UP Unrelated to treatment Catheter to remain until follow up with Urology outpatient Dalila Vasquez RN documented in this encounterJ.W. [facility]03-01-2023 Miscellaneous Notes* Telephone Encounter - SANTI Lan - 07/06/2022 12:50 PM EST Patient is scheduled for 07/21/22. SANTI Lan July 06, 2022 12:50 PM * Telephone Encounter - Darrin Tolentino MD - 07/05/2022 1:30 PM EST Order placed. * Telephone Encounter - SANTI Lan - 07/05/2022 12:32 PM EST Order was closed due to patient no showing his CT back in March, please place new order so we can schedule. SANTI Lan July 05, 2022 12:33 PM * Telephone Encounter - Leatha Beltran MA - 07/04/2022 3:18 PM EST Patient never set up his chest CT for the lung nodules back in 03/2022. Please help get this set up. Please assist patient to schedule. Leatha Beltran MA documented in this encounterJ.W. [facility]02-24-2023 [facility]02-22-2023 [facility]02-22-2023 History of Present illness Narrative* Renetta Barnes - 06/29/2022 9:34 AM EST [facility] Specialty Refill Assessment Medication(s): Abiraterone Patient's current medication list and adherence status to current therapy were reviewed by Specialty Pharmacy clinical pharmacist to identify any new drug interactions or non-compliance to therapy. Therapy continues to be appropriate for disease, patient response, and medical condition. Verification of therapeutic benefit and effectiveness with current therapy was completed. Adverse events, barriers in adherence, and side effects were assessed and addressed if applicable. Will proceed with refill with no changes in therapy - patient progressing towards achieving therapeutic goals based on medication- specific laboratory parameters, disease state markers and outcomes. Licensed Physical Therapist Assessment Patient confirmed: Yes Med/dose confirmed: Yes Supplies needed: No supplies needed Missed doses: No Estimated days supply on hand: 3 Copay amount: 0 Payment confirmed: Yes Delivery method: FedEx Signature required: No Delivery address: [address] [place] [id number] Delivery date: 07/01/22 Questions or concerns for the pharmacist?: No [facility] Assessment - Hematology/Oncology: Assessment to use: Refill Vaccination Assessment: Date of influenza vaccination reminder: 02/19/2021 Date of most recent vaccination assessment: 02/19/2021 Treatment Plan Information: Treatment Plan Information: Diagnosis: metastatic prostate cancer Previous treatment(s): ADT and external mean radiation treatment in 2018 Tx Plan: abiraterone/prednisone/lupron Medication: abiraterone (prednisone filled at local pharmacy) Dose: 1000mg Sig: Take 4 tablets (1000 mg) by mouth once daily on an empty stomach, 1 hour before or 2 hours after a meal Admin/Storage: Take on empty stomach, hazardous A/E: Adrenocortical insufficiency, hepatotoxicity, HTN, edema, hot flash, hyperglycemia/natremia/triglyceridemia, hypokalemia/phosphatemia, constipation/diarrhea, fatigue, arthralgia D/I: Category C with flomax, metoprolol-increase concentration of flomax and metoprolol, monitor Monitoring/Lab: LFTs-prior to treatment, every 2 weeks for 3 months and monthly Hepatitis B screening Baseline: PSA 0.99 AST 25 Alt 18 Bili 0.5 K 3.9 Vaccine Recommendations: Influenza - patient will follow-up with [facility] PCP. Estimated Start Date Info: Under the discretion of Dr. Dixon. Estimated Treatment Duration: Until disease progression or unacceptable toxicity Renetta Barnes documented in this encounterJ.W. [facility]02-15-2023 [facility]02-15-2023 History of Present illness Narrative* Henrik Nugent MD - 06/22/2022 2:35 PM EST Images from the original note were not included. SERVICE DATE: June 22, 2022 CHIEF COMPLAINT: Morris Baez is a 81 year old male returning today for follow up of his cancer of the prostate INTERVAL HISTORY: Patient had an established diagnosis of localized prostatic cancer in 2017. He underwent some limited hormone therapy in the form of Lupron and radiation. PSA remains very low for several months. However Lupron was resumed when PSA started to go up and around 5. Zytiga and prednisone were added when PSA on each peak of 16. Fluvicione PET scan was done at the time and showed a solitary T12 metastasis. Subsequently an MRI of the T-spine did not show any mass or malignant lookinglesion. Patient tolerates treatment reasonably well. He stated that he was getting hot flashes, however they subsided with the last treatment. He also went off Zytiga and prednisone for 2 to 3 weeks since he ran out of Zytiga and accordingly did not take prednisone either. It was not resumed in thelast several days Patient had lithotripsy done for nephrolithiasis in April 2022. Sounds like the procedure was a little complicated by something that requirement-according to the family-4 units of packed RBCs transfusion. Patient also noticed increasing swelling in his lower extremities. Diagnostic Studies: Previous scans including PET as well as MRI was reviewed and discussed with thepatient and family CURRENT MEDICATIONS: potassium chloride ER (KLOR-CON M20) 20 mEq tablet Take 1 tablet by mouth twice daily. furosemide (LASIX) 20 mg tablet Take 2 tablets by mouth once daily. enzalutamide (XTANDI) 80 mg tablet Take 2 tablets (160 mg) by mouth once daily. metoprolol succinate ER (TOPROL XL) 25 mg 24 hr tablet Take 1 tablet by mouth once daily. Omeprazole Magnesium (PRILOSEC OTC) 20 mg tablet Take 1 tablet by mouth daily before breakfast. 1/2hr before meal. tamsulosin (FLOMAX) 0.4 mg Take 1 capsule by mouth twice daily. Per Urology Dr. Morejon amLODIPine (NORVASC) 10 mg tablet Take 1 tablet by mouth once daily. predniSONE (DELTASONE) 5 mg tablet Take 1 tablet by mouth once daily. finasteride (PROSCAR) 5 mg tablet Take 5 mg by mouth once daily. ZINC ORAL Take 1 tablet by mouth once daily. Cholecalciferol, Vitamin D3, 125 mcg (5,000 unit) cap Take 1 capsule by mouth once daily. aspirin, enteric coated (ASPIRIN, ENTERIC COATED) 81 mg EC tablet Take 81 mg by mouth once daily. MV with Tyb-Tzraagfs-Lzuvhe (CENTRUM SILVER) 0.4-300-250 mg-mcg-mcg tab Take 1 tablet by mouth oncedaily. abiraterone 250 mg tablet Take 4 tablets by mouth once daily on an empty stomach (1 hour before or 2 hours after a meal) (Patient not taking: Reported on 05/31/2022) oxybutynin XL (DITROPAN XL) 5 mg 24 hr tablet TAKE 1 TABLET BY MOUTH ONCE DAILY. CAN TAKE 2 TABLETSPER DAY NEEDED (Patient not taking: Reported on 05/31/2022) ascorbic acid (VITAMIN C ORAL) Take 1 tablet by mouth once daily. (Patient not taking: Reported on 05/31/2022) Blood Pressure Monitor (BLOOD PRESSURE KIT) 1 Each twice daily. ALLERGIES/INTOLERANCES: ALLERGIES No Known Allergies ROS: Patient said that he feels better now as compared to when he had the kidney stones detected and treated in April 2022 He denies hematuria, dysuria, increased urinary frequency, hesitancy or urgency He denies unexplained fever, night sweats, weight loss or hot flashes since his last Lupron treatment He denies bone pain or any symptoms or signs that suggest cord compression impending otherwise He denies fatigue, has some exertional dyspnea, no syncope or near syncope or chest pain He complains of lower extremity edema that according to him got much worse since April 2022 PHYSICAL EXAM: BP 124/87 Pulse 73 Temp 36.6 C (97.9 F) Ht 175.7 cm (5' 9.19 ) Wt 117.5 kg (259 lb) SpO2 100% BMI 38.03 kg/m2 Body mass index is 38.03 kg/m . ECO No focal sensorimotor deficits. DTRs 2+ and symmetrical. No lymphadenopathy or palpable masses. No hepatosplenomegaly, tenderness or rebound tenderness. 2-3+ lower extremity edema DATA REVIEW: I personally reviewed the patient's data and medical records. PERTINENT LABS: CMP was reviewed and all within normal limits including albumin and creatinine as well as LFTs and alkaline phosphatase. There is mild normocytic anemia. PSA from March 2022 was 0.14. Today's result is pending PERTINENT IMAGING: Previous imaging studies including ct and MRI of the T-spine was reviewed IMPRESSION: Hormone sensitive or dependent prostatic cancer. Patient is doing well on Lupron with Zytiga and prednisone. We will continue as long as patient tolerates it. At some point with the next or subsequent visit we will do MRI of the thoracic spine. If no evidence of metastatic focus will consider stopping Zytiga and prednisone. Patient has mild normocytic anemia. There is probably an iron deficiency component although mostly anemia of chronic disease. We will add ferritin and TIBC to today's blood work. Based on results we will decide whether to call and iron supplements or not. Lower extremity edema Plan We will check results of ferritin and TIBC. We will also continue with Lupron, Zytiga and prednisone and consider MRI of the thoracic spine. If no evidence of metastatic focus we will consider stopping Zytiga and prednisone His lower extremity edema is most likely multifactorial. However amlodipine or Norvasc, can be associated with significant lower extremity edema. He will see his PCP to consider changing this medication. Obviously if not done previously we will schedule him for venous Doppler ultrasound The patient was able to ask questions and these were answered in detail. Henrik Nugent MD cc: Blossom Tolentino MD documented in this encounterJ.W. [facility]02-15-2023 Miscellaneous Notes* Telephone Encounter - Suzie Duenas LPN - 06/22/2022 11:51 AM EST Dagoberto- please add additional Lupron order cycles and send to Dr. Nugent to sign. Suzie Duenas LPN documented in this encounterJ.W. [facility]02-15-2023 Instructions* Patient Instructions* Henrik Nugent MD - 06/22/2022 11:32 AM EST Continue with zytiga a,prednisone and leupron.See PCP to consider changing norvasc.We'll call patient if needs iron supplement documented in this encounterJ.W. Ruby [facility]02-02-2023 NoteHNO ID: [id number] Author: Leatha Beltran MA Service: ? Author Type: Apparel Sales Leader Type: Progress Notes Filed: 06/09/2022 4:15 PM Note Text: Scan on 06/09/2022 10:37 AM by External Provider: [facility]ound[facility]02-02-2023 History of Present illness Narrative* Leatha Beltran MA - 06/09/2022 4:04 PM EST Scan on 06/09/2022 10:37 AM by External Provider: Ultrasound documented in this encounterJ.W. Ruby [facility]02-02-2023 Miscellaneous Notes* Telephone Encounter - Alem Ledesma RN - 06/09/2022 10:15 AM EST ORAL ANTI-CANCER AGENTS EDUCATION Patient was going to switch from abiraterone to xtandi (see phone encounters regarding the switch, starting at 05/23/2022). Patient is going to remain on abiraterone. Patient does not need an oral edufor this since he has been on this medication. Alem Ledesma RN documented in this encounterJ.W. Ruby [facility]02-02-2023 Miscellaneous Notes* Telephone Encounter - Bethanie Mcnally LPN - 06/09/2022 9:14 AM EST Pt & spouse notified of results, they both voiced understanding. Bethanie Mcnally LPN * Telephone Encounter - Carmen England PA-C - 06/09/2022 8:28 AM EST See below note for potassium. Also Update: Vit D levels are low. Would recommend he go back up to around 4000 international unit(s) daily. His xray is normal. * Telephone Encounter - Leatha Beltran MA - 06/08/2022 12:24 PM EST Left message for patient to contact office. Leatha Beltran MA * Telephone Encounter - Carmen England PA-C - 06/08/2022 11:33 AM EST Let patient know that potassium level is normal now. Continue the potassium supplement. Vit d lab still pending. Xray is still pending as well. Will call once avail. documented in this encounterJ.W. [facility]01-31-2023 [facility]01-31-2023 [facility]01-31-2023 History of Present illness Narrative* Carmen England PA-C - 06/07/2022 10:33 AM EST Chief Complaint Patient presents with: Follow Up: Bilateral leg edema HPI Morris Baez is a 81 year old male who presents here today for Above Complaints.. Patient was seen last week due to increased leg swelling. We increased lasix to 40mg daily. He has noted improvement. Has a visit with cardiology today. Past medical history, appointments, medications, allergies reviewed. 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 BENIGN HYPERTENSION 10/17/2005 Bone metastases (HCC) 12/16/2020 Diverticulosis of colon 02/25/2009 Erectile dysfunction due to arterial insufficiency 04/15/2015 Functional diarrhea 01/14/2009 Gastroesophageal reflux disease with esophagitis without hemorrhage 08/04/2020 History of kidney stones 10/28/2011 04/21/2022 Hypertrophy of prostate without urinary obstruction and other lower urinary tract symptoms (LUTS) Lipoma of left upper extremity 02/04/[address] 03/10/2022 DPA: Cheryl () Lung nodule seen on imaging study 01/02/2019 12/31/19 CT chest WO: stable nodules, largest 8mm: 1 year f/u 09/27/18 CT chest IVCON: multiple bilateral, largest 8mm right mid lung following CXRs 08/21/18 atelectasis vs infltrate, 09/13/18 lung nodule Medicare annual wellness visit, subsequent 02/04/2021 Medicare Part B: Last done: 02/04/2021 Mixed hyperlipidemia 10/28/2011 Nonrheumatic aortic valve stenosis 08/12/2021 2020: Mild-Mod. Prostate cancer (HCC) 04/27/2017 Right inguinal hernia Vitamin D deficiency 01/07/2020 Previous Surgical History PAST SURGICAL HISTORY Procedure Laterality Date 2D ECHO (EXEP) 02/09/2021 EF=55%, Mod LVH, 1-2+ , mild dyast dysf AMPUTATION TOE,MT-P JT Left 04/2020 second toe-Dr. Lai ARTHROSCOPY KNEE DIAGNOSTIC W/WO SYNOVIAL BX SPX 08/2003 Arthroscopy, knee, meniscus CARPAL TUNNEL Right 05/18/2018 Dr. Oliver Devlin COLONOSCOPY W/BIOPSY SINGLE/MULTIPLE 02/25/2009 LAPAROSCOPY SURG RPR INITIAL INGUINAL HERNIA 05/28/2013 Right PAST SURGICAL HISTORY OF Left inguninal hernia repair REMV CATARACT EXTRACAP,INSERT LENS Bilateral 2021 TONSILLECTOMY PRIMARY/SECONDARY <AGE 11 Tonsillectomy and adnoids TOTAL KNEE REPLACEMENT 03/25/2014 left TKR, Dr. Posada TOTAL KNEE REPLACEMENT Right 03/19/2021 Family History FAMILY HISTORY Problem Relation Age of Onset other (MACULAR DEGENERATION) Mother other (CHF) Father Patient Allergies ALLERGIES No Known Allergies Current Medications Current Outpatient Medications on File Prior to Visit Medication Sig potassium chloride ER (KLOR-CON M20) 20 mEq tablet Take 1 tablet by mouth twice daily. furosemide (LASIX) 20 mg tablet Take 2 tablets by mouth once daily. furosemide (LASIX) 20 mg tablet Take 1 tablet by mouth once daily. enzalutamide (XTANDI) 80 mg tablet Take 2 tablets (160 mg) by mouth once daily. metoprolol succinate ER (TOPROL XL) 25 mg 24 hr tablet Take 1 tablet by mouth once daily. Omeprazole Magnesium (PRILOSEC OTC) 20 mg tablet Take 1 tablet by mouth daily before breakfast. 1/2hr before meal. tamsulosin (FLOMAX) 0.4 mg Take 1 capsule by mouth twice daily. Per Urology Dr. Morejon amLODIPine (NORVASC) 10 mg tablet Take 1 tablet by mouth once daily. finasteride (PROSCAR) 5 mg tablet Take 5 mg by mouth once daily. ZINC ORAL Take 1 tablet by mouth once daily. aspirin, enteric coated (ASPIRIN, ENTERIC COATED) 81 mg EC tablet Take 81 mg by mouth once daily. MV with Uto-Taimxdxl-Riewnc (CENTRUM SILVER) 0.4-300-250 mg-mcg-mcg tab Take 1 tablet by mouth oncedaily. Blood Pressure Monitor (BLOOD PRESSURE KIT) 1 Each twice daily. abiraterone 250 mg tablet Take 4 tablets by mouth once daily on an empty stomach (1 hour before or 2 hours after a meal) (Patient not taking: Reported on 05/31/2022) predniSONE (DELTASONE) 5 mg tablet Take 1 tablet by mouth once daily. oxybutynin XL (DITROPAN XL) 5 mg 24 hr tablet TAKE 1 TABLET BY MOUTH ONCE DAILY. CAN TAKE 2 TABLETSPER DAY NEEDED (Patient not taking: Reported on 05/31/2022) ascorbic acid (VITAMIN C ORAL) Take 1 tablet by mouth once daily. (Patient not taking: Reported on 05/31/2022) Cholecalciferol, Vitamin D3, 125 mcg (5,000 unit) cap Take 1 capsule by mouth once daily. (Patient not taking: No sig reported) No current facility-administered medications on file prior to visit. Social History Social History Tobacco Use Smoking status: Never Smokeless tobacco: Never Vaping Use Vaping Use: Never used Substance Use Topics Alcohol use: No Drug use: No Review of Symptoms REVIEW OF SYSTEMS See hpi EXAM: BP 120/80 Pulse 89 Resp 20 Wt 116 kg (255 lb 12.8 oz) SpO2 98% BMI 36.97 kg/m General Appearance: Well appearing, alert, in no acute distress, well-hydrated, well nourished.. Lungs: Lungs clear to auscultation. No wheezing, rhonchi, rales.. Heart: RRR without murmur, gallop, or rubs. No ectopy. Extremities: 2+ edema bilateral -improved. Mild erythema and tenderness on left. Health Maintenance List ADVANCE DIRECTIVE DISCUSSION due on 05/08/2022 INFLUENZA(1) due on 11/04/2022 SHINGRIX VACCINE(1 of 2) due on 03/09/2023 COVID-19 VACCINE(1) due on 03/09/2023 DIABETES SCREEN due on 05/31/2025 DTAP,TDAP,TD(3 - Td or Tdap) due on 01/06/2030 DEPRESSION ASSESSMENT Completed PNEUMOCOCCAL: 65+ Completed Data reviewed ASSESSMENT/PLAN: 1. Peripheral edema - ICD9: 782.3, ICD10: R60.9 (primary diagnosis) Continue lasix and potassium Await consult to cardio Recheck bmp today. Check US and xray as well. Will start duricef for possible cellulitis - BASIC METABOLIC PNL - US LEG VEIN DVT UNL VAS LAB - XR TIBIA FIBULA 2V AP/LAT LEFT - US LEG VEIN DVT BISHOP VAS LAB 2. Nonrheumatic aortic valve stenosis - ICD9: 424.1, ICD10: I35.0 Await consult with cardio - BASIC METABOLIC PNL 3. Vitamin D deficiency - ICD9: 268.9, ICD10: E55.9 - VITAMIN D 25 HYDROXY 4. Left leg pain - ICD9: 729.5, ICD10: M79.605 As #1 - US LEG VEIN DVT UNL VAS LAB - XR TIBIA FIBULA 2V AP/LAT LEFT - US LEG VEIN DVT BISHOP VAS LAB Carmen England PA-C documented in this encounterJ.W. [facility]01-25-2023 Miscellaneous Notes* Telephone Encounter - Orly Boyd RN - 06/01/2022 10:46 AM EST Pts called and is notified of providers results and instructions. She voices understanding. Orly Boyd RN * Telephone Encounter - Carmen England PA-C - 06/01/2022 10:40 AM EST Patient's potassium level is low. With being on the lasix, we need to have him start potassium supplement. I will send this in. Carmen England PA-C documented in this encounterJ.W. [facility]01-24-2023 [facility]01-24-[facility]23 History of Present illness Narrative* Rosalba Park (Warehouse Insulation Worker) - 05/31/2022 10:15 AM EST [facility] Refill Assessment Medication(s): Abiraterone Patient's current medication list and adherence status to current therapy were reviewed by Specialty Pharmacy clinical pharmacist to identify any new drug interactions or non-compliance to therapy. Therapy continues to be appropriate for disease, patient response, and medical condition. Verification of therapeutic benefit and effectiveness with current therapy was completed. Adverse events, barriers in adherence, and side effects were assessed and addressed if applicable. Will proceed with refill with no changes in therapy - patient progressing towards achieving therapeutic goals based on medication- specific laboratory parameters, disease state markers and outcomes. Licensed Physical Therapist Assessment Patient confirmed: Yes Med/dose confirmed: Yes Missed doses: No Estimated days supply on hand: 7 (pt stated he wasnt home, thinks he has a week maybe a little morebut he will check and call back if needed sooner) Copay amount: 0 Payment confirmed: Yes Delivery method: FedEx Signature required: No Delivery address: [facility] [address], [place] [address] Delivery date: 06/07/22 [facility] Visit Assessment - Hematology/Oncology: Assessment to use: Refill Vaccination Assessment: Date of influenza vaccination reminder: 02/19/2021 Date of most recent vaccination assessment: 02/19/2021 Treatment Plan Information: Treatment Plan Information: Diagnosis: metastatic prostate cancer Previous treatment(s): ADT and external mean radiation treatment in 2018 Tx Plan: abiraterone/prednisone/lupron Medication: abiraterone (prednisone filled at local pharmacy) Dose: 1000mg Sig: Take 4 tablets (1000 mg) by mouth once daily on an empty stomach, 1 hour before or 2 hours after a meal Admin/Storage: Take on empty stomach, hazardous A/E: Adrenocortical insufficiency, hepatotoxicity, HTN, edema, hot flash, hyperglycemia/natremia/triglyceridemia, hypokalemia/phosphatemia, constipation/diarrhea, fatigue, arthralgia D/I: Category C with flomax, metoprolol-increase concentration of flomax and metoprolol, monitor Monitoring/Lab: LFTs-prior to treatment, every 2 weeks for 3 months and monthly Hepatitis B screening Baseline: PSA 0.99 AST 25 Alt 18 Bili 0.5 K 3.9 Vaccine Recommendations: Influenza - patient will follow-up with [facility] PCP. Estimated Start Date Info: Under the discretion of Dr. Dixon. Estimated Treatment Duration: Until disease progression or unacceptable toxicity Rosalba Park ([employer]) documented in this encounterJ.W. [facility]01-24-2023 Instructions* Patient Instructions* Carmen England, PA-C - 05/31/2022 9:29 AM EST Lab today. Increase Lasix to 40mg daily. Set up with [facility]. Follow up with myself in 1 week for recheck on swelling. documented in this encounterJ.W. [facility]01-24-2023 History of Present illness Narrative* Carmen England PA-C - 05/31/2022 9:03 AM EST Chief Complaint Patient presents with: Edema: Bilat leg swelling from top of legs down to feet X 2 wks HPI Morris Baez is a 81 year old male who presents here today for Above Complaints.. Patient states he has been having more issues with leg swelling. Has had this issue in the past but more so since his hospitalization. He denies chest pain or shortness of breath. No CHING. Patient was seen in hospital in April and had an ECHO that showed severe aortic stenosis. He hasnot followed up with cardiology (no consult was set up) His BP meds including his diuretic was d/c at that time due to low BP. On 05/23 patient requested refill of lasix and 20mg was sent. Patient states that prior to this, he was not taking an lasix since hospital discharge. They have not noted benefit from this as of yet. Past medical history, appointments, medications, allergies reviewed. 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 BENIGN HYPERTENSION 10/17/2005 Bone metastases (HCC) 12/16/2020 Diverticulosis of colon 02/25/2009 Erectile dysfunction due to arterial insufficiency 04/15/2015 Functional diarrhea 01/14/2009 Gastroesophageal reflux disease with esophagitis without hemorrhage 08/04/2020 History of kidney stones 10/28/2011 04/21/2022 Hypertrophy of prostate without urinary obstruction and other lower urinary tract symptoms (LUTS) Lipoma of left upper extremity 02/04/[address] 03/10/2022 DPA: Cheryl () Lung nodule seen on imaging study 01/02/2019 12/31/19 CT chest WO: stable nodules, largest 8mm: 1 year f/u 09/27/18 CT chest IVCON: multiple bilateral, largest 8mm right mid lung following CXRs 08/21/18 atelectasis vs infltrate, 09/13/18 lung nodule Medicare annual wellness visit, subsequent 02/04/2021 Medicare Part B: Last done: 02/04/2021 Mixed hyperlipidemia 10/28/2011 Nonrheumatic aortic valve stenosis 08/12/2021 2020: Mild-Mod. Prostate cancer (HCC) 04/27/2017 Right inguinal hernia Vitamin D deficiency 01/07/2020 Previous Surgical History PAST SURGICAL HISTORY Procedure Laterality Date 2D ECHO (EXEP) 02/09/2021 EF=55%, Mod LVH, 1-2+ , mild dyast dysf AMPUTATION TOE,MT-P JT Left 04/2020 second toe-Dr. Lai ARTHROSCOPY KNEE DIAGNOSTIC W/WO SYNOVIAL BX SPX 08/2003 Arthroscopy, knee, meniscus CARPAL TUNNEL Right 05/18/2018 Dr. Oliver Devlin COLONOSCOPY W/BIOPSY SINGLE/MULTIPLE 02/25/2009 LAPAROSCOPY SURG RPR INITIAL INGUINAL HERNIA 05/28/2013 Right PAST SURGICAL HISTORY OF Left inguninal hernia repair REMV CATARACT EXTRACAP,INSERT LENS Bilateral 2021 TONSILLECTOMY PRIMARY/SECONDARY <AGE 11 Tonsillectomy and adnoids TOTAL KNEE REPLACEMENT 03/25/2014 left TKR, Dr. Posada TOTAL KNEE REPLACEMENT Right 03/19/2021 Family History FAMILY HISTORY Problem Relation Age of Onset other (MACULAR DEGENERATION) Mother other (CHF) Father Patient Allergies ALLERGIES No Known Allergies Current Medications Current Outpatient Medications on File Prior to Visit Medication Sig furosemide (LASIX) 20 mg tablet Take 1 tablet by mouth once daily. furosemide (LASIX) 20 mg tablet Take 1 tablet by mouth once daily. metoprolol succinate ER (TOPROL XL) 25 mg 24 hr tablet Take 1 tablet by mouth once daily. Omeprazole Magnesium (PRILOSEC OTC) 20 mg tablet Take 1 tablet by mouth daily before breakfast. 1/2hr before meal. tamsulosin (FLOMAX) 0.4 mg Take 1 capsule by mouth twice daily. Per Urology Dr. Prano amLODIPine (NORVASC) 10 mg tablet Take 1 tablet by mouth once daily. finasteride (PROSCAR) 5 mg tablet Take 5 mg by mouth once daily. ZINC ORAL Take 1 tablet by mouth once daily. MV with Ubk-Hkerllcc-Wqtwqq (CENTRUM SILVER) 0.4-300-250 mg-mcg-mcg tab Take 1 tablet by mouth oncedaily. Blood Pressure Monitor (BLOOD PRESSURE KIT) 1 Each twice daily. abiraterone 250 mg tablet Take 4 tablets by mouth once daily on an empty stomach (1 hour before or 2 hours after a meal) (Patient not taking: Reported on 05/31/2022) lisinopril (ZESTRIL, PRINIVIL) 20 mg tablet Take 1 tablet by mouth once daily. (Patient not taking:Reported on 05/31/2022) enzalutamide (XTANDI) 80 mg tablet Take 2 tablets (160 mg) by mouth once daily. predniSONE (DELTASONE) 5 mg tablet Take 1 tablet by mouth once daily. oxybutynin XL (DITROPAN XL) 5 mg 24 hr tablet TAKE 1 TABLET BY MOUTH ONCE DAILY. CAN TAKE 2 TABLETSPER DAY NEEDED (Patient not taking: Reported on 05/31/2022) ascorbic acid (VITAMIN C ORAL) Take 1 tablet by mouth once daily. (Patient not taking: Reported on 05/31/2022) Cholecalciferol, Vitamin D3, 125 mcg (5,000 unit) cap Take 1 capsule by mouth once daily. (Patient not taking: Reported on 05/31/2022) aspirin, enteric coated (ASPIRIN, ENTERIC COATED) 81 mg EC tablet Take 81 mg by mouth once daily. (Patient not taking: Reported on 05/31/2022) No current facility-administered medications on file prior to visit. Social History Social History Tobacco Use Smoking status: Never Smokeless tobacco: Never Vaping Use Vaping Use: Never used Substance Use Topics Alcohol use: No Drug use: No Review of Symptoms REVIEW OF SYSTEMS See hpi EXAM: BP 122/70 Pulse 74 Resp 20 Wt 118.8 kg (261 lb 12.8 oz) SpO2 97% BMI 37.83 kg/m General Appearance: Well appearing, alert, in no acute distress, well-hydrated, well nourished. andObese. Lungs: Lungs clear to auscultation. No wheezing, rhonchi, rales.. Heart: RRR with grade 3 murmur appreciated. Extremities: 3+ edema bilaterally. Neg homans.. Health Maintenance List ADVANCE DIRECTIVE DISCUSSION due on 05/08/2022 DEPRESSION ASSESSMENT due on 05/08/2022 INFLUENZA(1) due on 11/04/2022 SHINGRIX VACCINE(1 of 2) due on 03/09/2023 COVID-19 VACCINE(1) due on 03/09/2023 DIABETES SCREEN due on 03/23/2025 DTAP,TDAP,TD(3 - Td or Tdap) due on 01/06/2030 PNEUMOCOCCAL: 65+ Completed Data reviewed ASSESSMENT/PLAN: 1. Peripheral edema - ICD9: 782.3, ICD10: R60.9 (primary diagnosis) Check labs today. Increase lasix to 40mg. May need to start potassium as patient had low Potassium in hospital. Will await labs. - BASIC METABOLIC PNL 2. Nonrheumatic aortic valve stenosis - ICD9: 424.1, ICD10: I35.0 Need to see cardiology. Patient family asks for [facility] - CONSULT TO CARDIOLOGY 3. Severe aortic stenosis - ICD9: 424.1, ICD10: I35.0 As above. - CONSULT TO CARDIOLOGY Carmen England PA-C documented in this encounterJ.W. Ruby [facility] Hospital01-23-2023 Miscellaneous Notes* Telephone Encounter - Darrin Hassan RPh - 05/30/2022 1:49 PM EST Please sign new order for abiraterone to be filled at [facility] Special[facility]. Darrin Hassan, PharmD, AAHIVP Clinical Pharmacist, Oncology [facility] P: ; F: Pool: P [facility] Pool #: [id number] documented in this encounterJ.W. Ruby [facility] Hospital01-23-2023 Miscellaneous Notes* Telephone Encounter - Delia Berry RN - 05/30/2022 11:51 AM EST Patient calls with moderate leg edema bilateral. Nurse triage completed. Protocol recommends see provider within 24 hours. Patient agreeable. Appointment scheduled. Care advice reviewed. Patient verbalizes understanding. Reason for Disposition [1] MODERATE leg swelling (e.g., swelling extends up to knees) AND [2] new-onset or worsening Answer Assessment - Initial Assessment Questions 1. ONSET: 10 days ago 2. LOCATION: Bilateral legs from knees down 3. SEVERITY: - MODERATE edema - swelling of lower leg to knee, pitting edema > 1/4 inch (6 mm) deep, rest and elevation only partially reduce swelling 4. REDNESS: No 5. PAIN: Mild 6. FEVER: No 7. CAUSE: Not certain. Patient thought maybe related to recent kidney stones but had follow up appointment with US. Patient reports he was told by Dr. Mejia that everything with the kidney looked good and he needed to follow up with PCP. 8. MEDICAL HISTORY: Prostate Cancer with maria e. 9. RECURRENT SYMPTOM: Patient reports he has had edema in past but didn't specify treatment. 10. OTHER SYMPTOMS: No chest pain or difficulty breathing. Protocols used: Leg Swelling and [id number] documented in this encounterJ.W. Ruby [facility] Hospital01-17-2023 Miscellaneous Notes* Telephone Encounter - Rosa Isela Camara LPN - 05/24/2022 11:54 AM EST Left detailed message on identified voicemail concerning Dr. Dixon response and trying the Xtandi again. Also sent message to pts. My chart instructed to take a look at it. Rosa Isela Camara LPN * Telephone Encounter - Abdirizak Dixon DO - 05/23/2022 12:28 PM EST I originally had prescribed Xtandi but it was cost prohibitive. I will try that again and if that is still the case then we can try apalutamide or darolutamide. Abdirizak Dixon DO * Telephone Encounter - JANICE Vallejo - 05/23/2022 9:57 AM EST SANTOS spoke with pt's this date who reports she would like to look at other pharmacy options for Zytiga instead of their mail-order pharmacy since they have had trouble securing the med. SW called this pharmacy again this date to check on status, they report the medication remains on back order with no estimated date to be in stock. SANTOS called all local pharmacies, all report no Zytiga or Abiraterone acetate in stock. Dr. Dixon, all pharmacies reporting a national shortage of Ztyiga and the generic. Is there anothermedication option for pt? He has been without for a couple months already per . JANICE Vallejo-S documented in this encounterJ.W. Ruby [facility]01-16-2023 [facility]01-16-2023 [facility]-16-2023 [facility]-16-2023 [facility]-16-2023 [facility] History of Present illness Narrative* Rosalba Park ([employer]) - 05/23/2022 2:57 PM EST [facility] received prescription(s) for Xtandi from Dr. Dixon's office. Benefits investigation was conducted, indicating that a prior authorization is required by patient's insurance plan with [employer]. Encounter will be updated once prior authorization has been submitted by [facility]. Rosalba Park, [facility], Oncology P: / F: * Roseanna Wallace RN - 05/23/2022 2:57 PM EST [facility] received rx Xtandi for the patient per Dr. Dixon, with prior authorization submitted to [employer] for review through [employer] online portal, and received followingresponse: Available without authorization. Placed follow up telephone call to Gregory for clarification of status of request andspoke with Abigail from the prior authorization department, who stated that there is a current priorauthorization approval for Xtandi from 08/10/2021 through 08/09/2022 PA number [id number], and following expiration date the plan will not require a new prior authorization for Xtandi and it will begrandfathered in for the patient to continue to receive medication. Discussed with Mikael Muir, ScotD. Sly Wallace RN documented in this encounterJ.W. Ruby [facility] Hospital01-16-2023 Miscellaneous Notes* Telephone Encounter - Katya Johns INFLATABLE BUILDINGS LAMINATOR - 05/23/2022 9:41 AM EST Patient Cheryl calling is having edema bishop legs, he finished rx for Furosemide about 10 days ago and threw the bottle away. Read office notes where the Lisinopril-HCTZ was stopped and put on furosemide 20 mg and Lisinopril 20 mg one each daily when he was in [facility]. Pending rx for short term local pharmacy for the furosemide and 90 day rx to go to [facility] pharmacy Lisinopril and furosemide 90 day each. Please advise Patient has been identified by name and date of : Spouse phones for refill(s): Requested Prescriptions Pending Prescriptions Disp Refills furosemide (LASIX) 20 mg tablet 30 tablet Sig: Take 1 tablet by mouth once daily. lisinopril (ZESTRIL, PRINIVIL) 20 mg tablet 90 tablet Sig: Take 1 tablet by mouth once daily. furosemide (LASIX) 20 mg tablet 90 tablet Sig: Take 1 tablet by mouth once daily. Date of last office visit in primary care: 04/28/2022, has appt 09/08/2022 Last 2 Encounter Wt Readings: Date: Wt: 05/17/2022 115.7 kg (255 lb) 04/28/2022 111.1 kg (245 lb) Previous labs/tests for medication: Blood Pressure: BUN (mg/dL) Date Value 03/23/2022 22 06/15/2021 17 Sodium (mmol/L) Date Value 03/23/2022 137 06/15/2021 139 Last 1 Encounter BP Readings: Date: BP: 05/17/2022 119/72 Please advise. Thank you. Katya Johns LPN documented in this encounterJ.W. Ruby [facility] Hospital01-10-2023 Nurse Note* Rosa Isela Camara LPN - 05/17/2022 8:45 AM EST Lupron injection administered, right buttock,tolerated well, no immediate adverse reactions noted. Rosa Isela Camara LPN documented in this encounterJ.W. Ruby [facility] Hospital12-22-2022 NoteOhio[facility]12-22-2022 Instructions* Patient Instructions* Kelsie Mora APRN.[place] [employer] - 04/28/2022 11:04 AM EST Continue current medications Follow up with Dr. Mejia and Dr. Dixon as scheduled. DIETARY MANAGEMENT KIDNEY STONES URIC ACID STONES: Animal proteins: Meat, chicken, seafood Helpful foods: Fruit, vegetables CALCIUM OXALATE: Salt: Reduce salt in the diet No added salt. Calcium supplements: with meals to bind oxalate taken in the meal. Oxalate: See table below. AVOID greater than 500 mg vitamin C a day and TAKE vitamin B6 50 mg a day. FLUID: 3 to 4 quarts a day. AVOID grapefruit juice. PARTIAL LIST OF OXALATE CONTENT OF FOODS FOOD MG OF OXALATE (Serving Size in Parentheses) Spinach cooked 608 (1/2 cup) Rhubarb, frozen 570 (1/2 cup) Spinach, chopped raw 361 (1 cup) Green beans, steamed 45 (1 cup) Bran flakes 40 (1/2 cup) Peanuts 27 (1 oz) Potato, microwave 25 (1 medium) Celery 25 (1 stalk) Tea, brewed 18 (1 cup) Chocolate 16 (1 oz bar) Peanut butter 15 (1 Tbsp) White bread 4 (1 slice) Carrots raw 4 (1 carrot) Potato chips 3 (1 serving bag) White rice, steamed 3 (1 cup) Peaches, canned 1 (1/2 cup) Broccoli, steamed 1 (1/2 cup) [place] jelly 1 (1 Tbsp) Apple, raw 0.7 (1 fruit) [place] flakes 0.6 (1 cup) documented in this encounterJ.W. Ruby [facility] Hospital12-22-2022 History of Present illness Narrative* Kelsie Mora APRN.DARIAN - 04/28/2022 10:45 AM EST Chief Complaint Patient presents with: Hospital F/U [facility] Morris Baez is a 81 year old male who presents here today for Above Complaints.. Patient presents for hospital follow up for kidney stones. Patient states he is feeling overall well but is weak from being hospitalized. Patient reports that he is urinating ok and has a follow up with Dr. Mejia in 6 weeks. Denies fever, chills, pain with urination, blood in urine. Patient does not currently have catheter and has had no further blood clot passage. Past medical history, appointments, medications, allergies reviewed. 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 BENIGN HYPERTENSION 10/17/2005 Bone metastases (HCC) 12/16/2020 Diverticulosis of colon 02/25/2009 Erectile dysfunction due to arterial insufficiency 04/15/2015 Functional diarrhea 01/14/2009 Gastroesophageal reflux disease with esophagitis without hemorrhage 08/04/2020 History of kidney stones 10/28/2011 Hypertrophy of prostate without urinary obstruction and other lower urinary tract symptoms (LUTS) Lipoma of left upper extremity 02/04/[address] 03/10/2022 DPA: Cheryl () Lung nodule seen on imaging study 01/02/2019 12/31/19 CT chest WO: stable nodules, largest 8mm: 1 year f/u 09/27/18 CT chest IVCON: multiple bilateral, largest 8mm right mid lung following CXRs 08/21/18 atelectasis vs infltrate, 09/13/18 lung nodule Medicare annual wellness visit, subsequent 02/04/2021 Medicare Part B: Last done: 02/04/2021 Mixed hyperlipidemia 10/28/2011 Nonrheumatic aortic valve stenosis 08/12/2021 2020: Mild-Mod. Prostate cancer (HCC) 04/27/2017 Right inguinal hernia Vitamin D deficiency 01/07/2020 Previous Surgical History PAST SURGICAL HISTORY Procedure Laterality Date 2D ECHO (EXEP) 02/09/2021 EF=55%, Mod LVH, 1-2+ , mild dyast dysf AMPUTATION TOE,MT-P JT Left 04/2020 second toe-Dr. Lai ARTHROSCOPY KNEE DIAGNOSTIC W/WO SYNOVIAL BX SPX 08/2003 Arthroscopy, knee, meniscus CARPAL TUNNEL Right 05/18/2018 Dr. Oliver Devlin COLONOSCOPY W/BIOPSY SINGLE/MULTIPLE 02/25/2009 LAPAROSCOPY SURG RPR INITIAL INGUINAL HERNIA 05/28/2013 Right PAST SURGICAL HISTORY OF Left inguninal hernia repair REMV CATARACT EXTRACAP,INSERT LENS Bilateral 2021 TONSILLECTOMY PRIMARY/SECONDARY <AGE 11 Tonsillectomy and adnoids TOTAL KNEE REPLACEMENT 03/25/2014 left TKR, Dr. Posada TOTAL KNEE REPLACEMENT Right 03/19/2021 Family History FAMILY HISTORY Problem Relation Age of Onset other (MACULAR DEGENERATION) Mother other (CHF) Father Patient Allergies ALLERGIES No Known Allergies Current Medications Current Outpatient Medications on File Prior to Visit Medication Sig keTORolac (TORADOL) 10 mg tablet Take 10 mg by mouth every 6 hours as needed. oxyCODONE ir (OXYIR) 5 mg capsule TAKE 1 CAPSULE BY MOUTH EVERY 6 HOURS NEEDED FOR PAIN FOR 3 DAYS metoprolol succinate ER (TOPROL XL) 25 mg 24 hr tablet Take 1 tablet by mouth once daily. Omeprazole Magnesium (PRILOSEC OTC) 20 mg tablet Take 1 tablet by mouth daily before breakfast. 1/2hr before meal. tamsulosin (FLOMAX) 0.4 mg Take 1 capsule by mouth twice daily. Per Urology Dr. Morejon abiraterone 250 mg tablet Take 4 tablets by mouth once daily. Following a low- fat breakfast. amLODIPine (NORVASC) 10 mg tablet Take 1 tablet by mouth once daily. predniSONE (DELTASONE) 5 mg tablet Take 1 tablet by mouth once daily. finasteride (PROSCAR) 5 mg tablet Take 5 mg by mouth once daily. oxybutynin XL (DITROPAN XL) 5 mg 24 hr tablet TAKE 1 TABLET BY MOUTH ONCE DAILY. CAN TAKE 2 TABLETSPER DAY NEEDED lisinopril-hydroCHLOROthiazide (PRINZIDE, ZESTORETIC) 20-25 mg per tablet Take 1 tablet by mouth every morning. ZINC ORAL Take 1 tablet by mouth once daily. ascorbic acid (VITAMIN C ORAL) Take 1 tablet by mouth once daily. Cholecalciferol, Vitamin D3, 125 mcg (5,000 unit) cap Take 1 capsule by mouth once daily. aspirin, enteric coated (ASPIRIN, ENTERIC COATED) 81 mg EC tablet Take 81 mg by mouth once daily. MV with Cve-Xtbkqezy-Jhlflh (CENTRUM SILVER) 0.4-300-250 mg-mcg-mcg tab Take 1 tablet by mouth oncedaily. Blood Pressure Monitor (BLOOD PRESSURE KIT) 1 Each twice daily. No current facility-administered medications on file prior to visit. Social History Social History Tobacco Use Smoking status: Never Smokeless tobacco: Never Vaping Use Vaping Use: Never used Substance Use Topics Alcohol use: No Drug use: No Review of Symptoms REVIEW OF SYSTEMS SEE HPI EXAM: BP 126/80 Pulse 73 Resp 16 Wt 111.1 kg (245 lb) BMI 35.41 kg/m General Appearance: Well appearing, alert, in no acute distress, well-hydrated, well nourished.. Lungs: Lungs clear to auscultation. No wheezing, rhonchi, rales.. Heart: RRR without murmur, gallop, or rubs. No ectopy. Abdomen: Normal abdominal exam, Abdomen soft, non-tender. Bowel sounds normal. No masses, organomegaly. Health Maintenance List INFLUENZA(1) due on 11/04/2022 SHINGRIX VACCINE(1 of 2) due on 03/09/2023 COVID-19 VACCINE(1) due on 03/09/2023 DIABETES SCREEN due on 03/23/2025 DTAP,TDAP,TD(3 - Td or Tdap) due on 01/06/2030 ADVANCE DIRECTIVE DISCUSSION Completed DEPRESSION ASSESSMENT Completed PNEUMOCOCCAL: 65+ Completed Data reviewed -Discharge summary from [facility] 04/11-04/17 ASSESSMENT/PLAN: 1. Kidney stone - ICD9: 592.0, ICD10: N20.0 (primary diagnosis) -Continue to stay hydrated -Follow up with Dr. Mejia as scheduled -Dietary modifications encouraged, list provided to patient. Kelsie Mora APRN.CNP documented in this encounterJ.W. Ruby [facility] Hospital11-16-2022 History of Present illness Narrative* Blossom Funes APRN.CNP - 03/23/2022 8:31 AM EST Chief Complaint Patient presents with: Established Patient HPI: Morris Baez is a 81 year old male who presents here today for follow up prostate cancer. Per Dr. Dixon's previous note: H/o hypertension, hyperlipidemia, GERD, arthritis of the lumbar spine, right knee and right hip. Ivan has a history of prostate cancer. Diagnosed with clinical stage T1c prostate cancer in 2017. Was seen by Dr. Jean on 02/28/2017. On exam there was no palpable nodule. Transrectal ultrasound revealed the gland to be moderately enlarged measuring 55 cc. There was homogeneous echo pattern throughout the gland with no focal lesion. Biopsies were performed. Pathology: 1. Left base prostate, biopsy (A) - Prostatic adenocarcinoma, [place] score 7 (4+3), grade group 3 involving 90% of two of two biopsy cores. 2. Left mid prostate, biopsy (B) - Prostatic adenocarcinoma, [place] score 7 (4+3), grade group 3 involving 90% of two of two biopsy cores. 3. Left apex prostate, biopsy (C) - Prostatic adenocarcinoma, Ella score 7 (4+3), grade group 3 involving 80% of two of two biopsy cores. 4. Right base prostate, biopsy (D) - Prostatic adenocarcinoma, [place] score 7 (4+3), grade group 3 involving 80% of two of two biopsy cores. 5. Right mid prostate, biopsy (E) - Prostatic adenocarcinoma, Ella score 7 (4+3), grade group 3 involving 70% of two of two biopsy cores. 6. Right apex prostate, biopsy (F) - Prostatic adenocarcinoma, Ella score 7 (3+4), grade group 2 involving 25% of two of two biopsy cores. PSA was 16.69 ng/mL and the Ella score was 7 (4+3). Bone scan and CT of the abdomen pelvis did not show evidence of metastatic disease. Previous therapy: 1) Short course of hormonal therapy and external beam radiation treatment to the prostate from 07/17/2017 through 09/07/2017. He was observed to have a decline in PSA to 0.10 on 10/05/2017. Thereafter PSA began increasing and was 3.54 on 07/14/2020. Most recent level 5.01 ng/mL on 11/18/2020. He underwent a fluciclovine PET scan 10/27/2020. It demonstrated a metastasis in T12. The SUV was 3.9. 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 Rests a while and has dinner then back out to the barn. Feels he voids to completion during the days. Typically has one episode nocturia. No dysuria or gross hematuria. Current therapy: 1) Lupron. 2) Zytiga and prednisone. Pt. noted hematuria 2 weeks ago. He ran out of [employer] [place] for about 10 days-once restarted then noted blood in urine lasted a couple episodes one morning. No bleeding since. Pt. went to [facility] ED for kidney stones 1a.m. this past Monday morning. R sided kidney stones-having lithotripsy today by Dr. Mejia. Pt. here today with his . Appetite: It's off a little bit. Energy level: I have no energy. Denies fevers. Resp:denies cough or sob Cardiac:denies chest pain/palpitations GI:R flank pain, denies ant. 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 Past medical history, appointments, medications, allergies reviewed. No changes. EXAM: BP 133/88 Pulse 79 Temp 37.1 C (98.7 F) (Temporal) Wt 115.7 kg (255 lb) BMI 36.85 kg/m APPEARANCE Well appearing, alert, in no acute distress, well-hydrated, well nourished. HEART RRR with normal S1 and S2, + LUNG clear to auscultation LYMPH NODES No cervical lymphadenopathy, No supraclavicular lymphadenopathy, and No axillary lymphadenopathy. ABDOMEN bowel sounds normoactive, soft, non-tender EXTREMITIES chronic BLE edema, support hose in place NEURO Awake, alert and oriented x 3, Normal gait, and No involuntary motions. SKIN Skin color, texture, turgor normal, no suspicious rashes or lesions LABS: Component Latest Ref Rng & Units 12/29/2021 03/01/2022 03/23/2022 WBC 3.70 - 11.00 k/uL 6.26 6.59 6.80 RBC 4.20 - 6.00 m/uL 4.36 4.12 (L) 3.95 (L) Hemoglobin 13.0 - 17.0 g/dL 13.2 12.3 (L) 12.0 (L) Hematocrit 39.0 - 51.0 % 38.9 (L) 37.2 (L) 35.5 (L) MCV 80.0 - 100.0 fL 89.2 90.3 89.9 MCH 26.0 - 34.0 pg 30.3 29.9 30.4 MCHC 30.5 - 36.0 g/dL 33.9 33.1 33.8 RDW-CV 11.5 - 15.0 % 13.2 12.7 12.8 Platelet Count 150 - 400 k/uL 217 245 240 MPV 9.0 - 12.7 fL 8.8 (L) 9.8 9.0 Neut% % 56.4 51.6 62.1 Abs Neut (ANC) 1.45 - 7.50 k/uL 3.53 3.40 4.22 Lymph% % 27.5 29.3 20.7 Abs Lymph 1.00 - 4.00 k/uL 1.72 1.93 1.41 [place]% % 11.3 12.0 12.4 Abs [place] <0.87 k/uL 0.71 0.79 0.84 Eosin% % 4.0 5.9 3.8 Abs Eosin <0.46 k/uL 0.25 0.39 0.26 Baso% % 0.5 0.9 0.6 Abs Baso <0.11 k/uL 0.03 0.06 0.04 Immature Gran % % 0.3 0.3 0.4 IMMATURE GRANS (ABS) <0.10 k/uL <0.03 <0.03 0.03 NRBC /100 WBC 0.0 0.0 0.0 Absolute nRBC <0.01 k/uL <0.01 <0.01 <0.01 DTYPE Auto Auto Auto CMP/PSA: Pending ASSESSMENT/PLAN: 1. Prostate cancer (HCC) - ICD9: 185, ICD10: C61 (primary diagnosis) 2. Bone metastases (HCC) - ICD9: 198.5, ICD10: C79.[address] Dixon's previous note 12/29/21: Assessment: -The patient is an 81-year-old male who received short course of ADT and radiation treatment in 2017 for an intermediate risk prostate cancer. He had a PSA anna but it did not become undetectable. PSA had been increasing since that time and a fluciclovine PET scan demonstrated T12 metastasis whichwas asymptomatic. -Received first dose of Lupron on 12/25/2020. Start of abiaterone was delayed due to upcoming knee surgery planned for 01/20. -Had recommended Xtandi, but cost prohibitive. -Improved lower urinary tract outlet obstructive symptoms. -Again reviewed overall plan for ADT therapy plus abiaterone in an effort to increase progression free and overall survival. -He was seen by his dentist. Evidently all dental work done but no follow up. -Reviewed BP again. He's not checking BP at home. Plan: -Continue Zytiga and prednisone. -Increase amlodipine to 10 mg daily. -Advised him to monitor home blood pressure daily and told him to follow up with PCP (Note sent to PCP) this week for BP management. -Continue Lupron every 3 months. -Continue follow up with Dr. Mejia -Office visit in about 3 months. - Overall tolerating zytiga/pred/lupron fairly well. +hot flashes from lupron. - Recent R sided kidney stones-having lithotripsy today by Dr. Mejia. - Reviewed CBC with pt. - CMP/PSA pending. - Monitor PSA. - Continue zytiga/prednisone. - Continue current medications. - Advised pt. to monitor BP at home. - Continue lupron every 3 months. - Continue follow up with Dr. Mejia. - Follow up with Dr. Dixon in 3 months with CBC/CMP/PSA. - Pt. aware to call office with any questions/concerns. The patient indicates understanding of these issues and agrees with the plan. All documentation from previous visit of 12/29/21-Dr. Dixon was copied and pasted, documentation hasbeen reviewed and edited as necessary for today's visit. Blossom Funes APRN.DARIAN documented in this encounterJ.W. [facility]11-15-2022 Miscellaneous Notes* Telephone Encounter - Talya Britton - 03/22/2022 9:15 AM EST Spoke with patient and and they are ok with the change in appointment. Talya Britton * Telephone Encounter - Talya Britton - 03/21/2022 1:12 PM EST Appointment changed to Blossom as directed. Attempted to contact patient but no answer and voicemail is full. Should patient call back, please advise that the patient will will be seeing Blossom instead of Dr. Dixon on Monday at the originally scheduled time. Once relayed, document and close this note. Talya Britton * Telephone Encounter - Suzie Duenas LPN - 03/21/2022 12:58 PM EST Please reschedule patient's Monday appointment to Blossom's schedule at the same time, 8:30. Please notify patient. Suzie Duenas LPN documented in this encounterJ.W. [facility]11-02-2022 Instructions* Patient Instructions* Darrin Tolentino MD - 03/09/2022 3:58 PM EDT Consider getting the shingrix vaccine for the prevention of shingles from a local pharmacy Please bring in copies of living will and durable power of admitted attorneys for health care. Please get labs and urine test done on or after 08/26/2022 prior to your next visit. documented in this encounterJ.W. [facility]11-02-2022 History of Present illness Narrative* Darrin Tolentino MD - 03/09/2022 3:40 PM EDT Medicare Yearly Visit Medical B eligibilty date not able to find Date of last exam 02/04/2021 PAST MEDICAL HISTORY 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 BENIGN HYPERTENSION 10/17/2005 Bone metastases (HCC) 12/16/2020 Diverticulosis of colon 02/25/2009 Erectile dysfunction due to arterial insufficiency 04/15/2015 Functional diarrhea 01/14/2009 Gastroesophageal reflux disease with esophagitis without hemorrhage 08/04/2020 History of kidney stones 10/28/2011 Hypertrophy of prostate without urinary obstruction and other lower urinary tract symptoms (LUTS) Lung nodule seen on imaging study 01/02/2019 12/31/19 CT chest WO: stable nodules, largest 8mm: 1 year f/u 09/27/18 CT chest IVCON: multiple bilateral, largest 8mm right mid lung following CXRs 08/21/18 atelectasis vs infltrate, 09/13/18 lung nodule Medicare annual wellness visit, subsequent 02/04/2021 Medicare Part B: Last done: 02/04/2021 Mixed hyperlipidemia 10/28/2011 Prostate cancer (HCC) 04/27/2017 Right inguinal hernia Vitamin D deficiency 01/07/2020 PAST SURGICAL HISTORY PAST SURGICAL HISTORY Procedure Laterality Date AMPUTATION TOE,MT-P JT Left 04/2020 second toe-Dr. Lai CARPAL TUNNEL Right 05/18/2018 Dr. Oliver Devlin COLONOSCOPY W/BX 02/25/2009 KNEE SCOPE,DIAGNOSTIC 08/2003 Arthroscopy, knee, meniscus LAP REPAIR INTIAL INGUINAL HERNIA 05/28/2013 Right PAST SURGICAL HISTORY OF Left inguninal hernia repair REMOVAL OF TONSILS,<11 Y/O Tonsillectomy and adnoids TOTAL KNEE REPLACEMENT 03/25/2014 left TKR, Dr. Posada ALLERGIES: Patient has no known allergies. Medications reviewed: Yes FAMILY HISTORY FAMILY HISTORY Problem Relation Age of Onset other (MACULAR DEGENERATION) Mother other (CHF) Father SOCIAL HISTORY: SOCIAL HISTORY Social History Tobacco Use Smoking status: Never Smoker Smokeless tobacco: Never Used Vaping Use Vaping Use: Never used Substance Use Topics Alcohol use: No Drug use: No Morris denies regular aerobic exercise. He watches his diet for sodium, low fat and low cholesterol most of the time. List of current specialists seen: Dr. Dixon ([place]), End of Live Planning discussed including patients advanced directive wishes: Yes I am willing to follow Morris's advanced directives. PHQ-2 / Depression screen Depression Screening 07/14/2020 02/08/2021 12/29/2021 03/09/2022 PHQ-2 Score 0 2 0 1 PHQ-9 Score 0 - - - Depression screening tool completed and reviewed. Based on score and interview, patient is not at risk for depression. Screening tool discussed with patient, and I recommended no further interventionat this time. Functional Ability/Safety Screen 1. Was the patient's timed Up and Go test unsteady or longer than 30 seconds? No 2. Does the patient need help with the phone, transportation, shopping,preparing meals, housework, laundry, medications or managing money? No 3. Does your home have rugs in the hallway, lack of grab bars in the bathroom, lack of handrails onthe stairs or have poor lighting? No Hearing Evaluation: hard of hearing and wears hearing aids PHYSICAL EXAM BP 128/80 (BP Site: Right Arm, BP Position: Sitting, BP Cuff Size: Large Adult) Pulse 64 Resp 18 Ht 177.2 cm (5' 9.75 ) Wt 112.5 kg (248 lb) BMI 35.84 kg/m Alert and oriented X 3: YES Body mass index is 35.84 kg/m . Visual acuity: see Optho See below ASSESSMENT/PLAN: 81 year old male The following prevention plan was discussed during the office visit and provided to the patient: See below Darrin Tolentino MD Chief Complaint Patient presents with: Medicare Wellness Exam HPI Morris Baez is a 81 year old male who presents here today for Medicare Annual Visit. Patient with hx of HTN, GERD, hyperlipidemia, Prostate cancer, Bone Mets, Lung nodule, Vit D def, arthritis, Hx of renal stones as well as those reviewed and addressed below and in ROS. Patient has been doing ok. Had cataracts removed in the past year. Past medical history, appointments, medications, allergies reviewed. Previous Medical History 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 BENIGN HYPERTENSION 10/17/2005 Bone metastases (HCC) 12/16/2020 Diverticulosis of colon 02/25/2009 Erectile dysfunction due to arterial insufficiency 04/15/2015 Functional diarrhea 01/14/2009 Gastroesophageal reflux disease with esophagitis without hemorrhage 08/04/2020 History of kidney stones 10/28/2011 Hypertrophy of prostate without urinary obstruction and other lower urinary tract symptoms (LUTS) Lipoma of left upper extremity 02/04/2021 Lung nodule seen on imaging study 01/02/2019 12/31/19 CT chest WO: stable nodules, largest 8mm: 1 year f/u 09/27/18 CT chest IVCON: multiple bilateral, largest 8mm right mid lung following CXRs 08/21/18 atelectasis vs infltrate, 09/13/18 lung nodule Medicare annual wellness visit, subsequent 02/04/2021 Medicare Part B: Last done: 02/04/2021 Mixed hyperlipidemia 10/28/2011 Nonrheumatic aortic valve stenosis 08/12/2021 2020: Mild-Mod. Prostate cancer (HCC) 04/27/2017 Right inguinal hernia Vitamin D deficiency 01/07/2020 Previous Surgical History PAST SURGICAL HISTORY Procedure Laterality Date 2D ECHO (EXEP) 02/09/2021 EF=55%, Mod LVH, 1-2+ , mild dyast dysf AMPUTATION TOE,MT-P JT Left 04/2020 second toe-Dr. Lai ARTHROSCOPY KNEE DIAGNOSTIC W/WO SYNOVIAL BX SPX 08/2003 Arthroscopy, knee, meniscus CARPAL TUNNEL Right 05/18/2018 Dr. Oliver Devlin COLONOSCOPY W/BIOPSY SINGLE/MULTIPLE 02/25/2009 LAPAROSCOPY SURG RPR INITIAL INGUINAL HERNIA 05/28/2013 Right PAST SURGICAL HISTORY OF Left inguninal hernia repair TONSILLECTOMY PRIMARY/SECONDARY <AGE 11 Tonsillectomy and adnoids TOTAL KNEE REPLACEMENT 03/25/2014 left TKR, Dr. Posada TOTAL KNEE REPLACEMENT Right 03/19/2021 Family History FAMILY HISTORY Problem Relation Age of Onset other (MACULAR DEGENERATION) Mother other (CHF) Father Patient Allergies ALLERGIES No Known Allergies Current Medications Current Outpatient Medications on File Prior to Visit Medication Sig abiraterone 250 mg tablet Take 4 tablets by mouth once daily. Following a low- fat breakfast. amLODIPine (NORVASC) 10 mg tablet Take 1 tablet by mouth once daily. predniSONE (DELTASONE) 5 mg tablet Take 1 tablet by mouth once daily. tamsulosin (FLOMAX) 0.4 mg Take 1 capsule by mouth daily at bedtime. finasteride (PROSCAR) 5 mg tablet Take 5 mg by mouth once daily. oxybutynin XL (DITROPAN XL) 5 mg 24 hr tablet TAKE 1 TABLET BY MOUTH ONCE DAILY. CAN TAKE 2 TABLETSPER DAY NEEDED Omeprazole Magnesium (PRILOSEC OTC) 20 mg tablet Take 1 tablet by mouth daily before breakfast. 1/2hr before meal. lisinopril-hydroCHLOROthiazide (PRINZIDE, ZESTORETIC) 20-25 mg per tablet Take 1 tablet by mouth every morning. metoprolol succinate ER (TOPROL XL) 25 mg 24 hr tablet Take 1 tablet by mouth once daily. ZINC ORAL Take 1 tablet by mouth once daily. ascorbic acid (VITAMIN C ORAL) Take 1 tablet by mouth once daily. Cholecalciferol, Vitamin D3, 125 mcg (5,000 unit) cap Take 1 capsule by mouth once daily. aspirin, enteric coated (ASPIRIN, ENTERIC COATED) 81 mg EC tablet Take 81 mg by mouth once daily. MV with Cjo-Hgdwysmg-Iwqkmd (CENTRUM SILVER) 0.4-300-250 mg-mcg-mcg tab Take 1 tablet by mouth oncedaily. Blood Pressure Monitor (BLOOD PRESSURE KIT) 1 Each twice daily. No current facility-administered medications on file prior to visit. Social History Social History Tobacco Use Smoking status: Never Smokeless tobacco: Never Vaping Use Vaping Use: Never used Substance Use Topics Alcohol use: No Drug use: No Review of Symptoms REVIEW OF SYSTEMS GENERAL: No weight loss, malaise or fevers HEENT: has been getting a headache in the afternoon and if eats something it goes away. No changes in hearing or vision, no nose bleeds or other nasal problems. On the inside of nose on the left feels maybe blocked. NECK: Negative for lumps, goiter, pain and significant neck swelling RESPIRATORY: Negative for cough, hemoptysis, wheezing, COPD, dyspnea or shortness of breath CARDIOVASCULAR: Negative for chest pain, hypertension, CHF or palpitations. Has noted some increased leg swelling then what he used to get and in the morning is resolved. GI: No nausea, vomiting, or diarrhea, No heartburn or reflux symptoms, and no blood : No history of dysuria, blood. Gets up 2-4 times a night. MUSCULOSKELETAL: Negative for new or changes in his typical joint pain or swelling, back pain or muscle pain. Joints stiff in AM SKIN: Negative for lesions, rash, and itching PSYCH: Negative for sleep disturbance, mood disorder and recent psychosocial stressors HEMATOLOGY/LYMPHOLOGY: Negative for prolonged bleeding, bruising easily or swollen nodes ENDOCRINE: Negative for cold or heat intolerance, polyuria, polydipsia and goiter NEURO: No history of headaches, syncope, paralysis, seizures or tremors EXAM: BP 128/80 (BP Site: Right Arm, BP Position: Sitting, BP Cuff Size: Large Adult) Pulse 64 Resp 18 Ht 177.2 cm (5' 9.75 ) Wt 112.5 kg (248 lb) BMI 35.84 kg/m Last 5 Encounter Wt Readings: Date: Wt: 03/09/2022 112.5 kg (248 lb) 02/22/2022 113.4 kg (250 lb) 12/29/2021 110.7 kg (244 lb) 11/30/2021 111.1 kg (245 lb) 09/07/2021 112.4 kg (247 lb 12.8 oz) General Appearance: Well appearing, alert, in no acute distress, well-hydrated, well nourished.. Skin: Skin color, texture, turgor normal, no suspicious rashes or lesions. Head: Normocephalic, no masses, lesions, tenderness or abnormalities. Eyes: Anicteric sclera. Pupils are equally round and reactive to light. Extraocular movements are intact. . Ears: External ears, TM's normal, canals clear. Nose: deviated septum. No polyps noted. Neck: Supple, no adenopathy; thyroid symmetric, normal size, no bruits. Lungs: Lungs clear to auscultation. No wheezing, rhonchi, rales.. Heart: Negative findings: regular rate and rhythm, S1 normal, S2 normal, no rubs, clicks or gallops, Positive findings: murmur: 2/6 mid systolic medium pitched harsh murmur diffuse . Abdomen: Normal abdominal exam, Abdomen soft, non-tender. Bowel sounds normal. No masses, organomegaly. Extremities: No deformities, skin discoloration, Good capillary refill. Mild edema Rt>Lt. Musculoskeletal: Muscular strength intact, No joint swelling, deformity, or tenderness. Peripheral Pulses: Normal. Neurologic: Gait normal. Reflexes normal and symmetric. Sensation to light touch and crainal nerves2-12 intact.. Health Maintenance List COVID-19 VACCINE(1) Never done SHINGRIX VACCINE(1 of 2) Never done ADVANCE DIRECTIVE DISCUSSION Never done DEPRESSION ASSESSMENT Never done INFLUENZA(1) due on 01/06/2022 DIABETES SCREEN due on 03/01/2025 DTAP,TDAP,TD(3 - Td or Tdap) due on 01/06/2030 PNEUMOCOCCAL: 65+ Completed Data reviewed Component Latest Ref Rng & Units 02/08/2021 06/15/2021 07/13/2021 12/29/2021 03/01/2022 WBC 3.70 - 11.00 k/uL 5.71 6.26 6.59 RBC 4.20 - 6.00 m/uL 4.85 4.36 4.12 (L) Hemoglobin 13.0 - 17.0 g/dL 14.4 13.2 12.3 (L) Hematocrit 39.0 - 51.0 % 42.6 38.9 (L) 37.2 (L) MCV 80.0 - 100.0 fL 87.8 89.2 90.3 MCH 26.0 - 34.0 pg 29.7 30.3 29.9 MCHC 30.5 - 36.0 g/dL 33.8 33.9 33.1 RDW-CV 11.5 - 15.0 % 12.4 13.2 12.7 Platelet Count 150 - 400 k/uL 219 217 245 MPV 9.0 - 12.7 fL 8.8 (L) 8.8 (L) 9.8 Neut% % 56.9 56.4 51.6 Abs Neut (ANC) 1.45 - 7.50 k/uL 3.24 3.53 3.40 Lymph% % 22.9 27.5 29.3 Abs Lymph 1.00 - 4.00 k/uL 1.31 1.72 1.93 [place]% % 12.1 11.3 12.0 Abs [place] <0.87 k/uL 0.69 0.71 0.79 Eosin% % 7.2 4.0 5.9 Abs Eosin <0.46 k/uL 0.41 0.25 0.39 Baso% % 0.9 0.5 0.9 Abs Baso <0.11 k/uL 0.05 0.03 0.06 Immature Gran % % 0.3 0.3 IMMATURE GRANS (ABS) <0.10 k/uL <0.03 <0.03 NRBC /100 WBC 0.0 0.0 Absolute nRBC <0.01 k/uL <0.01 <0.01 <0.01 DTYPE Auto Auto Nucleated Reds 0 /100 WBC 0.0 Diff Type Auto Diff Protein, Total 6.3 - 8.0 g/dL 7.4 6.9 7.3 7.9 Albumin 3.9 - 4.9 g/dL 3.9 3.9 4.0 4.2 Calcium 8.5 - 10.2 mg/dL 10.0 9.1 9.9 Bilirubin, Total 0.2 - 1.3 mg/dL 0.5 0.3 0.8 0.8 Alkaline Phosphatase 38 - 113 U/L 64 70 78 75 AST 14 - 40 U/L 25 20 21 24 Glucose 74 - 99 mg/dL 97 97 94 BUN 9 - 24 mg/dL 20 28 (H) 16 Creatinine 0.73 - 1.22 mg/dL 0.83 0.83 0.73 Sodium 136 - 144 mmol/L 139 137 137 Potassium 3.7 - 5.1 mmol/L 4.0 4.2 4.0 Chloride 97 - 105 mmol/L 103 102 101 CO2 22 - 30 mmol/L 25 24 28 Anion Gap 9 - 18 mmol/L 11 11 8 (L) ALT 10 - 54 U/L 18 13 14 15 eGFR- >60 eGFR-All Other Races . >60 eGFR >=60 mL/min/1.73m 87 91 Color Yellow Light Yellow Clarity Clear Cloudy (A) Glucose, Urine Negative Negative Bilirubin, Urine Negative Negative Ketones, Urine Negative Negative Specific [place], Ur 1.005 - 1.030 1.014 Hemoglobin/Blood,Ur Negative Negative pH, Urine 5.0 - 8.0 7.0 Protein, Urine Negative Negative Urobilinogen Negative Negative Nitrites Negative Negative Leukest Negative Negative WBC, Urine 0-5 /HPF 0-5 /HPF RBC, Urine 0-3 /HPF 3-5 /HPF (A) Total Cholesterol, Nonfasting <200 mg/dL 229 (H) 219 (H) Triglycerides, Nonfasting <150 mg/dL 135 200 (H) HDL Cholesterol, Nonfasting >39 mg/dL 50 42 LDL Cholesterol, Nonfasting <100 mg/dL 152 (H) 137 (H) Non HDL Cholesterol, Nonfasting <130 mg/dL 179 (H) 177 (H) VLDL Cholesterol, Nonfasting <30 mg/dL 27 40 (H) Total Chol/HDL Ratio, Nonfasting <5.10 mg/dL 4.58 5.21 (H) LDL/HDL Ratio, Nonfasting <2.54 mg/dL 3.04 (H) 3.26 (H) Bilirubin, Conjug <0.2 mg/dL <0.2 Vitamin D 25 Hydroxy 31.0 - 80.0 ng/mL 40.6 26.6 (L) 34.6 Vitamin B12 232 - 1,245 pg/mL 377 Magnesium 1.7 - 2.3 mg/dL 2.0 A/P ASSESSMENT/PLAN: 1. Medicare annual wellness visit, subsequent - ICD9: V70.0, ICD10: Z00.00 (primary diagnosis) - Counseled on healthy diet and regular exercise - Discussed need for and benefit of weight loss. BMI 35.84 kg/(m^2) - Follow up for annual exam in one year 2. Essential hypertension, benign - ICD9: 401.1, ICD10: I10 - good control - Continue current medication(s) - Recommended regular aerobic exercise. - Recommend home blood pressure monitoring, to bring results in on next visit - Goal of BP <130/80 - METOPROLOL SUCCINATE ER 25 MG TABLET,EXTENDED RELEASE 24 HR 3. Mixed hyperlipidemia - ICD9: 272.2, ICD10: E78.2 - good control - Encouraged following a low fat, low cholesterol diet. - Discussed the benefits of regular aerobic exercise and weight loss. - Encouraged following a low carbohydrate, healthy oil intake diet. 4. Gastroesophageal reflux disease with esophagitis without hemorrhage - ICD9: 530.81, 530.10, ICD10: K21.00 - Continue treatment with Prilosec 20 mg QD 5. Nonrheumatic aortic valve stenosis - ICD9: 424.1, ICD10: I35.0 - stable will monitor 6. Vitamin D deficiency - ICD9: 268.9, ICD10: E55.9 - cont replacement 7. Lung nodule seen on imaging study - ICD9: 793.11, ICD10: R91.1 Check - CT CHEST WO IVCON 8. Bone metastases (HCC) - ICD9: 198.5, ICD10: C79.51 - seeing oncology and urology 9. Prostate cancer (HCC) - ICD9: 185, ICD10: C61 - as per #8 10. Lung nodules - ICD9: 793.19, ICD10: R91.8 - CT CHEST WO IVCON 11. Elevated PSA - ICD9: 790.93, ICD10: R97.20 - as per #9 - TAMSULOSIN 0.4 MG CAPSULE 12. Microscopic hematuria - ICD9: 599.72, ICD10: R31.29 - repeat UA prior to next visit. He does see urology also. 13. Living will in place - ICD9: V49.89, ICD10: Z78.9 Patient to bring in copies 14. Advance directive discussed with patient - ICD9: V65.49, ICD10: Z71.89 - as per #13. Requested Prescriptions Signed Prescriptions Disp Refills metoprolol succinate ER (TOPROL XL) 25 mg 24 hr tablet 90 tablet 1 Sig: Take 1 tablet by mouth once daily. Omeprazole Magnesium (PRILOSEC OTC) 20 mg tablet 90 tablet 1 Sig: Take 1 tablet by mouth daily before breakfast. 1/2 hr before meal. tamsulosin (FLOMAX) 0.4 mg Sig: Take 1 capsule by mouth twice daily. Per Urology Dr. Morejon F/u 6 months. Check Lipid, UA prior I spent a total of 40 minutes on the date of the service which included preparing to see the patient, [id number] patient care, completing clinical documentation, performing a medically appropriate examination, counseling and educating the patient/family/caregiver and ordering medications, tests, or procedures. Darrin Tolentino MD documented in this encounterJ.W. [facility]10-28-2022 Miscellaneous Notes* Telephone Encounter - Rosa Isela Camara LPN - 03/04/2022 3:19 PM EDT New rx faxed along with face sheet provided by Laura. Rosa Isela Camara LPN * Telephone Encounter - Abdirizak Dixon DO - 03/04/2022 1:05 PM EDT The following approved medication requests have been transmitted electronically. Requested Prescriptions Signed Prescriptions Disp Refills abiraterone 250 mg tablet 120 tablet 5 Sig: Take 4 tablets by mouth once daily. Following a low-fat breakfast. Authorizing Provider: ABDIRIZAK DIXON DO * Telephone Encounter - Rosa Isela Camara LPN - 03/04/2022 8:30 AM EDT Pt. Has changed from [facility] to [facility]. Due to lower co-pay. [facility] notified and they have already closed this case due to pt. Unable to do co-pay of $742.49 This initial rx we are going to fax along with cover sheet provided in the my chart message, so RX will be printed, going forward we can then e-script. Rosa Isela Camara LPN documented in this encounterJ[facility]. [facility]10-28-2022 Miscellaneous Notes* Telephone Encounter - Eric Murrell - 03/04/2022 11:55 AM EDT I spoke to the PT and his about the trouble they are having with paying for his treatment medicine. They told me they pay $700.00 per month for a 30 day supply. I told them they can get a 30 daysupply on [employer]'s web site for $39.60. I gave them directions on how to sign up and would follow up with them next week. documented in this encounterJ.W. [facility]10-24-2022 Miscellaneous Notes* Telephone Encounter - JANICE Vallejo - 02/28/2022 3:46 PM EDT SW received a call from pt's this date stating pt's assistance for Zytiga will the end of this month and is inquiring about a renewal. SW forwarded pt's information to the financial navigator to begin this process. JANICE Vallejo-S documented in this [facility]10-24-2022 Miscellaneous Notes* Telephone Encounter - Abdirizak Dixon DO - 02/28/2022 1:13 PM EDT The following approved medication requests have been transmitted electronically. Requested Prescriptions Signed Prescriptions Disp Refills abiraterone 250 mg tablet 120 tablet 5 Sig: Take 4 tablets by mouth once daily. Following a low-fat breakfast. Authorizing Provider: ABDIRIZAK DIXON DO * Telephone Encounter - SANTI Mujica - 02/28/2022 12:05 PM EDT Pt's called to see about getting a RX for Zytiga. states he only has about 12 pills left.Pt's next appointment with Dr. Dixon is 03/23/2022. Please advise SANTI Mujica documented in this [facility]10-18-2022 Nurse Note* Rosa Isela Camara LPN - 02/22/2022 9:35 AM EDT Lupron injection administered, left buttock,tolerated well, no immediate adverse reactions noted. Rosa Isela Camara LPN documented in this encounterJ.W. [facility]09-21-2022 Miscellaneous Notes* Telephone Encounter - Darrin Tolentino MD - 01/26/2022 10:28 AM EDT Blood pressure good. No changes needed. * Telephone Encounter - Rosalba Calderon LPN - 01/26/2022 9:14 AM EDT Manual Readin/81 Pulse: 80 Reason for blood pressure check - Last BP elevated and Medication adjustment Patient is: Taking medication as prescribed Yes Took medication today Yes If no, date medication last taken N/A Experiencing side effects No BP was elevated at last appt with Hem/Onc. Amlodipine was increased to 10mg daily at that time. Tolerating medication change well. Denies any chest pain, shortness of breath, or dizziness. Continues with feeling unsteady. Has also noticed headaches daily recently; is relieved when he eats. Daily caffeine use. No personal history of tobacco use; no current exposure. Alert and oriented. Pt has been identified by name and birthdate: Yes Allergies reviewed: Yes Latex allergy: no. Medication - prescribed and OTC reviewed and updated: Yes Do you need any prescription refills prior to your next visit: No Health Maintenance: Reviewed and not up to date and provider notified Patient advised to continue with current medications and would be contacted if any further instructions after review by PCP. Rosalba Calderon LPN documented in this encounterJ.W. [facility]09-21-2022 History of Present illness Narrative* Rosalba Calderon LPN - 01/26/2022 9:03 AM EDT Manual Readin/81 Pulse: 80 Reason for blood pressure check - Last BP elevated and Medication adjustment Patient is: Taking medication as prescribed Yes Took medication today Yes If no, date medication last taken N/A Experiencing side effects No BP was elevated at last appt with Hem/Onc. Amlodipine was increased to 10mg daily at that time. Tolerating medication change well. Denies any chest pain, shortness of breath, or dizziness. Continues with feeling unsteady. Has also noticed headaches daily recently; is relieved when he eats. Daily caffeine use. No personal history of tobacco use; no current exposure. Alert and oriented. Pt has been identified by name and birthdate: Yes Allergies reviewed: Yes Latex allergy: no. Medication - prescribed and OTC reviewed and updated: Yes Do you need any prescription refills prior to your next visit: No Health Maintenance: Reviewed and not up to date and provider notified Patient advised to continue with current medications and would be contacted if any further instructions after review by PCP. Rosalba Calderon LPN documented in this encounterJ.W. [facility]09-06-2022 Miscellaneous Notes* Telephone Encounter - JANICE Vallejo - 01/11/2022 2:17 PM EDT SANTOS called pt to assess for mental health concerns and distress as pt scored a 10 on the NCCN Distress Thermometer. Pt did not answer, SW left a voicemail with a direct call-back number. This is the 2nd attempt to reach pt. Unable To Reach Patient VOLODYMYR Vallejo documented in this encounterJ.W. [facility]09-02-2022 Miscellaneous Notes* Telephone Encounter - JANICE Vallejo - 01/07/2022 12:55 PM EDT SANTOS called pt to assess for mental health concerns and distress as pt scored a 10 on the NCCN Distress Thermometer. Pt did not answer, SW left a voicemail with a direct call-back number. SW will call pt again next business day. Unable To Reach Patient VOLODYMYR Vallejo documented in this encounterJ.W. [facility]08-24-2022 Miscellaneous Notes* Telephone Encounter - Leatha Beltran MA - 12/29/2021 10:02 AM EDT Patient notified and voiced understanding. Leatha Beltran MA * Telephone Encounter - Darrin Tolentino MD - 12/29/2021 9:37 AM EDT Patient had his Norvasc increased to 10 mg a day today and will need a NV BP check in 4 weeks. Please help set up. documented in this encounterJ.W. [facility]08-24-2022 History of Present illness Narrative* Abdirizak Dixon DO - 12/29/2021 8:39 AM EDT Oncologic problem(s): 1) Metastatic castration sensitive prostate cancer. HPI: The patient is an 81-year-old male with a past medical history significant for hypertension, hyperlipidemia, GERD, arthritis of the lumbar spine, right knee and right hip. He also has a history of prostate cancer. Diagnosed with clinical stage T1c prostate cancer in 2017. Was seen by Dr. Jean on 02/28/2017. On exam there was no palpable nodule. Transrectal ultrasound revealed the gland to be moderately enlarged measuring 55 cc. There was homogeneous echo pattern throughout the gland with no focal lesion. Biopsies were performed. Pathology: 1. Left base prostate, biopsy (A) - Prostatic adenocarcinoma, Ella score 7 (4+3), grade group 3 involving 90% of two of two biopsy cores. 2. Left mid prostate, biopsy (B) - Prostatic adenocarcinoma, Florahome score 7 (4+3), grade group 3 involving 90% of two of two biopsy cores. 3. Left apex prostate, biopsy (C) - Prostatic adenocarcinoma, Flor[place]ome score 7 (4+3), grade group 3 involving 80% of two of two biopsy cores. 4. Right base prostate, biopsy (D) - Prostatic adenocarcinoma, Florahome score 7 (4+3), grade group 3 involving 80% of two of two biopsy cores. 5. Right mid prostate, biopsy (E) - Prostatic adenocarcinoma, Ella score 7 (4+3), grade group 3 involving 70% of two of two biopsy cores. 6. Right apex prostate, biopsy (F) - Prostatic adenocarcinoma, Ella score 7 (3+4), grade group 2 involving 25% of two of two biopsy cores. PSA was 16.69 ng/mL and the Florahome score was 7 (4+3). Bone scan and CT of the abdomen pelvis did not show evidence of metastatic disease. Previous therapy: 1) Short course of hormonal therapy and external beam radiation treatment to the prostate from 07/17/2017 through 09/07/2017. He was observed to have a decline in PSA to 0.10 on 10/05/2017. Thereafter PSA began increasing and was 3.54 on 07/14/2020. Most recent level 5.01 ng/mL on 11/18/2020. He underwent a fluciclovine PET scan 10/27/2020. It demonstrated a metastasis in T12. The SUV was 3.9. 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 Rests a while and has dinner then back out to the barn. Feels he voids to completion during the days. Typically has one episode nocturia. No dysuria or gross hematuria. Current therapy: 1) Lupron. 2) Zytiga and prednisone. Interim history: Had right knee replacement 03/2021. Works in his shop daily. No side effect from Zytiga. Frequent hot flashes. Don't wake him at night. About 2-3 episodes nocturia. No gross hematuria or dysuria. Dr. Mejia recently prescribed oxybutinin in addition to Flomax. Has helped with urgency. Endorses today, my back is a total wreck. Been like that for a long time. PMH, medications and allergies personally reviewed by me today. Any changes documented in appropriate section. ROS: Constitutional: Denies episodes of fever and night sweats. Normal appetite. Neuro: Denies HUMPHRIES, vertigo, dizziness and imbalance. First four fingers right hand tingle all the time. HEENT: No recent change in voice, vision or hearing. Resp: Denies cough, wheeze and hemoptysis. Denies shortness of breath at rest. Denies CHING. CVS: Denies exertional chest pain, PND, orthopnea and LE edema. GI: Denies dysgeusia. Denies symptoms of stomatitis. Denies dysphagia and odynophagia. Denies reflux, n/v, change in bowel habits and abdominal pain. : See above. Endo: Denies hot flashes. Denies polyuria and polydipsia. Denies heat and cold intolerance. Musculoskeletal: See above. Derm: Denies rash. Denies jaundice and diffuse pruritis. Heme: Denies unusual bleeding and unexplained bruising. Psych: Normal mood. PHYSICAL EXAM: Vitals: Blood pressure 148/109, pulse 79, temperature 36.3 C (97.4 F), weight 110.7 kg (244 lb), SpO2 95 %. Well-appearing and in no acute distress. EYES: Sclerae are anicteric bilaterally. NECK: Supple. LYMPHATIC: There is no palpable cervical or supraclavicular adenopathy. RESPIRATORY: Normal respiratory excursion. CARDIOVASCULAR: Rhythm is regular. ABDOMEN: The abdomen is nondistended. No organomegaly. No tenderness. Extremities: No swelling or edema. SKIN: No jaundice or rash. No petechiae. NEUROLOGIC: crown wheel assembler II-XII are grossly intact. No focal motor weakness. ASSESSMENT/PLAN: (C61) Prostate cancer (HCC) (primary encounter diagnosis) (C79.51) Bone metastases (HCC) Assessment: -The patient is an 81-year-old male who received short course of ADT and radiation treatment in 2017 for an intermediate risk prostate cancer. He had a PSA anna but it did not become undetectable. PSA had been increasing since that time and a fluciclovine PET scan demonstrated T12 metastasis whichwas asymptomatic. -Received first dose of Lupron on 12/25/2020. Start of abiaterone was delayed due to upcoming knee surgery planned for 01/20. -Had recommended Xtandi, but cost prohibitive. -Improved lower urinary tract outlet obstructive symptoms. -Again reviewed overall plan for ADT therapy plus abiaterone in an effort to increase progression free and overall survival. -He was seen by his dentist. Evidently all dental work done but no follow up. -Reviewed BP again. He's not checking BP at home. Plan: -Continue Zytiga and prednisone. -Increase amlodipine to 10 mg daily. -Advised him to monitor home blood pressure daily and told him to follow up with PCP (Note sent to PCP) this week for BP management. -Continue Lupron every 3 months. -Continue follow up with Dr. Mejia -Office visit in about 3 months. Portions of this documentation were copied and pasted from previous office visit notes in order to provide a cohesive continuity of the history. The note has been reviewed and edited and updated as necessary. During this patient visit I have spent approximately 20 minutes out of 30 in counseling regarding treatment options, medications and test results and coordinating care. Abdirizak Dixon DO documented in this encounterJ.W. [facility]07-15-2022 Miscellaneous Notes* Telephone Encounter - Rosa Isela Camara LPN - 11/19/2021 9:[address] Olivia please sign orders.Pt here to get labs Rosa Isela Camara LPN documented in this encounterJ.W. [facility]07-15-2022 Miscellaneous Notes* Telephone Encounter - Lesly Burleson LPN - 11/19/2021 9:16 AM EDT Pt does get refills from [facility]. He does not need this refill from [facility]. He needed a short term fill in the past that came from [facility] while he was waiting for his [facility] program to send Rx. I spoke with pt who states he has plenty on hand and will continue to get refills from the [facility]. I called [facility] who sent an auto fax request to this office and told them to gabi frazier the Rx that we eScripted. Lesly Burleson LPN * Telephone Encounter - Talya Britton - 11/19/2021 8:30 AM EDT Spoke with son (work number) and updated home number to 's cell. Spoke with and advised re: labs. asked about Xytiga. Patient have been receiving from [facility] and she wants to continue that and not receive it through [facility]. Talya Britton * Telephone Encounter - Talya Britton - 11/17/2021 12:04 PM EDT LM for patient to return call. When patient calls, please schedule the following appointment THIS WEEK: DEPT: [facility] APPT NOTE: CBC/CMP/PSA* APPT TYPE: LAB Once scheduled, document and route this note to [facility] PSR. Talya Britton * Telephone Encounter - Suzie Duenas LPN - 11/17/2021 11:36 AM EDT Please contact patient to schedule a lab appointment for this week CBC, CMP, PSA this week. Suzie Duenas LPN * Telephone Encounter - Gabriel Olivia MD - 11/17/2021 11:35 AM EDT Patient's request for medication is as follows Signed Prescriptions Disp Refills abiraterone 250 mg tablet 120 tablet 5 Sig: Take 4 tablets by mouth once daily. Following a low-fat breakfast. CRISTIANO: No Authorizing Provider: GABRIEL OLIVIA Order entered - please phone pharmacy and notify patient. Gabriel Olivia MD * Telephone Encounter - Suzie Duenas LPN - 11/17/2021 11:30 AM EDT [facility] is asking for the Rx to be resent. Suzie Duenas LPN * Telephone Encounter - Gabriel Olivia MD - 11/17/2021 11:13 AM EDT Zytiga should be 1000 mg a day along with prednisone 5 mg twice daily. Repeat CBC, CMP, PSA this week. Gabriel Olivia MD * Telephone Encounter - Suzie Duenas LPN - 11/17/2021 11:01 AM EDT [facility] asking for a clarification of patient's Zytiga. They have received Rx for both 250 mg a day and 1000 mg a day. Please clarify. Patient hasn't had labs since 09/07/2021. When should he have labs next? Suzie Duenas LPN documented in this encounterJ.W. [facility]07-11-2022 Miscellaneous Notes* Telephone Encounter - Gabriel Olivia MD - 11/15/2021 10:59 AM EDT Patient's request for medication is as follows Signed Prescriptions Disp Refills abiraterone 250 mg tablet 120 tablet 5 Sig: Take 4 tablets by mouth once daily. Following a low-fat breakfast. CRISTIANO: No Authorizing Provider: GABRIEL OLIVIA Order entered - please phone pharmacy and notify patient. Gabriel Olivia MD * Telephone Encounter - Suzie Duenas LPN - 11/15/2021 10:53 AM EDT Patient has been identified by name and date of : Yes Pending Prescriptions Disp Refills ABIRATERONE 250 MG TABLET 30 tablet 5 Sig: Take 1 tablet by mouth once daily. Following a low-fat breakfast. CRISTIANO: No RX INSTRUCTIONS: Patient aware RX will be sent to pharmacy. No need to notify patient. Suzie Duenas LPN documented in this encounterJ.W. [facility]05-31-2022 History of Present illness Narrative* Rosalba Park (Warehouse Insulation Worker) - 10/05/2021 10:27 AM EDT [facility](s[facility] for Abiraterone from Dr. Dixon's office. Benefits investigation was conducted, indicating that a prior authorization was previously required and approved. Covers current medication strength/dose based on adjudication / claim rejections: yes (YES OR NO) Change in insurance: no However, s/he is required to use [facility] to fill this medication. Patient is currently enrolled in free drug program. See specialty encounter dated 08/12/2021 for further details. Patient approved thru 05/07/2022. Will queue prescription(s) to go to designated specialty pharmacy. For reference, their pharmacy phone number is [phone]. [facility] initiates free drug copay assistance for new medications as a one time courtesy. Re-enrollment should be facilitated by the treating physician's office. We will assist with obtaining PArenewal letters if/when requested by office via new prescription that can be sent to our pharmacy. No further action by [facility]. Rosalba Park, [facility], Oncology P: / F: documented in this encounterJ.W. [facility]05-27-2022 Miscellaneous Notes* Telephone Encounter - Abdirizak Dixon DO - 10/01/2021 3:35 PM EDT The following approved medication requests have been transmitted electronically. Signed Prescriptions Disp Refills abiraterone 250 mg tablet 30 tablet 5 Sig: Take 1 tablet by mouth once daily. Following a low-fat breakfast. Authorizing Provider: ABDIRIZAK DIXON DO * Telephone Encounter - Rosa Isela Camara LPN - 10/01/2021 3:19 PM EDT As per faxed document from [facility]. Please send updated rx [facility]iga 250 mg [facility] Rosa Isela Camara LPN documented in this encounterJ.W. [facility]05-17-2022 Miscellaneous Notes* Telephone Encounter - Rosa Isela Camara LPN - 09/21/2021 1:30 PM EDT Patient has been identified by name and date of : Yes Pending Prescriptions Disp Refills PREDNISONE 5 MG TABLET 60 tablet 5 Sig: Take 1 tablet by mouth once daily. CRISTIANO: No RX INSTRUCTIONS: Patient aware RX will be sent to pharmacy. No need to notify patient. Rosa Isela Camara LPN documented in this encounterJ.W. [facility]05-06-2022 Miscellaneous Notes* Telephone Encounter - Nella Rajan Pss - 09/10/2021 7:00 AM EDT Please see other note. * Telephone Encounter - Talya Britton - 09/08/2021 9:47 AM EDT Left message for patient to return call. When patient returns call, please schedule the following appointments back to back on 09/10/21: DEPT: [facility] APPT NOTE: BMP* APPT TYPE: LAB DEPT: [facility] APPT NOTE: BP CHECK APPT TYPE: NURSE VISIT PROVIDER: LAB/PORT Once scheduled, document and route this note to [facility]ON[facility] PSR. Talya Britton * Telephone Encounter - Suzie Duenas LPN - 09/08/2021 9:11 AM EDT Patient is aware of MyChart message. Please call to schedule recheck blood pressure and BMP on Monday. * Telephone Encounter - Lesly Burleson LPN - 09/07/2021 1:27 PM EDT Left message on to call office back for message regarding labs and med change. I also sent him a MyChart message with the change in medications and need for a lab draw and BP check on Monday. Lesly Burleson LPN * Telephone Encounter - Abdirizak Dixon DO - 09/07/2021 1:15 PM EDT His serum creatinine is up substantially today. Likely this is an effect of abiaterone. Continue metoprolol 25 mg extended release once daily. Stop lisinopril/hydrochlorothiazide. Start Norvasc 5 mg daily. Recheck blood pressure and BMP on Monday. Abdirizak Dixon DO documented in this encounterJ.W. [facility]05-05-2022 Miscellaneous Notes* Telephone Encounter - Gaby Rich - 09/09/2021 4:25 PM EDT Pts spouse returned call. Pt is scheduled to have an emergency kidney surgery 09/10/[address] stones [address]. Mejia at [facility]. She stated they would call back next week after the surgery. documented in this encounterJ.W. [facility]05-03-2022 History of Present illness Narrative* Mirella Valerio APRN.[employer] - 09/07/2021 10:28 AM EDT This note was created using NoteWriter. Subjective Morris Baez is a 80 year old male. 80 year old male with PMH HTN, renal calculi and prostate CA presents with complaints of left flankpain Acute onset one day Pain in left flank non-radiating States it woke me up at 4 am yesterday sharp and dull ache pain in continuous and exacerbated with movement Denies trauma or injury Denies fever/chills/skin rash/lesions/weakness/CP/SOB/Urinary retention Utilized Aleve and hydration with some relief. Pt was seen by his oncologist this am and directed here. 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 The history is provided by the patient and the spouse. No tap and die maker technician was used. Kidney Problem This is a recurrent problem. The current episode started yesterday. The problem occurs constantly. The problem has not changed since onset.Pertinent negatives include no chest pain, no abdominal pain, no headaches and no shortness of breath. The symptoms are aggravated by bending, twisting, sneezing, coughing, walking, exertion and standing. The symptoms are relieved by drinking and NSAIDs. He has tried rest and water for the symptoms. The treatment provided mild relief. 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 BENIGN HYPERTENSION 10/17/2005 Bone metastases (HCC) 12/16/2020 Diverticulosis of colon 02/25/2009 Erectile dysfunction due to arterial insufficiency 04/15/2015 Functional diarrhea 01/14/2009 Gastroesophageal reflux disease with esophagitis without hemorrhage 08/04/2020 History of kidney stones 10/28/2011 Hypertrophy of prostate without urinary obstruction and other lower urinary tract symptoms (LUTS) Lipoma of left upper extremity 02/04/2021 Lung nodule seen on imaging study 01/02/2019 12/31/19 CT chest WO: stable nodules, largest 8mm: 1 year f/u 09/27/18 CT chest IVCON: multiple bilateral, largest 8mm right mid lung following CXRs 08/21/18 atelectasis vs infltrate, 09/13/18 lung nodule Medicare annual wellness visit, subsequent 02/04/2021 Medicare Part B: Last done: 02/04/2021 Mixed hyperlipidemia 10/28/2011 Nonrheumatic aortic valve stenosis 08/12/2021 2020: Mild-Mod. Prostate cancer (HCC) 04/27/2017 Right inguinal hernia Vitamin D deficiency 01/07/2020 PAST SURGICAL HISTORY Procedure Laterality Date 2D ECHO (EXEP) 02/09/2021 EF=55%, Mod LVH, 1-2+ , mild dyast dysf AMPUTATION TOE,MT-P JT Left 04/2020 second toe-Dr. Lai ARTHROSCOPY KNEE DIAGNOSTIC W/WO SYNOVIAL BX SPX 08/2003 Arthroscopy, knee, meniscus CARPAL TUNNEL Right 05/18/2018 Dr. Oliver Devlin COLONOSCOPY W/BIOPSY SINGLE/MULTIPLE 02/25/2009 LAPAROSCOPY SURG RPR INITIAL INGUINAL HERNIA 05/28/2013 Right PAST SURGICAL HISTORY OF Left inguninal hernia repair TONSILLECTOMY PRIMARY/SECONDARY <AGE 11 Tonsillectomy and adnoids TOTAL KNEE REPLACEMENT 03/25/2014 left TKR, Dr. Posada TOTAL KNEE REPLACEMENT Right 03/19/2021 ALLERGIES Patient has no known allergies. MEDICATIONS tamsulosin (FLOMAX) 0.4 mg Take 1 capsule by mouth daily at bedtime. abiraterone 250 mg tablet Take 4 tablets (1000 mg) by mouth once daily on an empty stomach, 1 hour before or 2 hours after a meal. abiraterone 250 mg tablet Take 4 tablets (1000 mg) by mouth once daily on an empty stomach, 1 hour before or 2 hours after a meal. finasteride (PROSCAR) 5 mg tablet Take 5 mg by mouth once daily. oxybutynin XL (DITROPAN XL) 5 mg 24 hr tablet TAKE 1 TABLET BY MOUTH ONCE DAILY. CAN TAKE 2 TABLETSPER DAY NEEDED Omeprazole Magnesium (PRILOSEC OTC) 20 mg tablet Take 1 tablet by mouth daily before breakfast. 1/2hr before meal. triamcinolone acetonide (KENALOG) 0.1 % cream Apply to affected area twice daily. APPLY TO AFFECTEDAREA lisinopril-hydroCHLOROthiazide (PRINZIDE, ZESTORETIC) 20-25 mg per tablet Take 1 tablet by mouth every morning. metoprolol succinate ER (TOPROL XL) 25 mg 24 hr tablet Take 1 tablet by mouth once daily. ZINC ORAL Take 1 tablet by mouth once daily. ascorbic acid (VITAMIN C ORAL) Take 1 tablet by mouth once daily. predniSONE (DELTASONE) 5 mg tablet Take 1 tablet by mouth once daily. Cholecalciferol, Vitamin D3, 125 mcg (5,000 unit) cap Take 1 capsule by mouth once daily. aspirin, enteric coated (ASPIRIN, ENTERIC COATED) 81 mg EC tablet Take 81 mg by mouth once daily. MV with Brg-Jwelidlb-Helwhn (CENTRUM SILVER) 0.4-300-250 mg-mcg-mcg tab Take 1 tablet by mouth oncedaily. Blood Pressure Monitor (BLOOD PRESSURE KIT) 1 Each twice daily. FAMILY HISTORY Problem Relation Age of Onset other (MACULAR DEGENERATION) Mother other (CHF) Father Social History Tobacco Use Smoking status: Never Smoker Smokeless tobacco: Never Used Vaping Use Vaping Use: Never used Substance Use Topics Alcohol use: No Drug use: No Review of Systems Respiratory: Negative for shortness of breath. Cardiovascular: Negative for chest pain. Gastrointestinal: Negative for abdominal pain. Neurological: Negative for headaches. Objective BP 170/98 Pulse (!) 46 Temp 36.1 C (97 F) Resp 18 Wt 112.4 kg (247 lb 12.8 oz) SpO2 100% BMI 34.56 kg/m Physical Exam Vitals and nursing note reviewed. Constitutional: General: He is not in acute distress. Appearance: Normal appearance. He is normal weight. He is not ill-appearing, toxic-appearing or diaphoretic. HENT: Head: Normocephalic. Mouth/Throat: Mouth: Mucous membranes are moist. Eyes: Pupils: Pupils are equal, round, and reactive to light. Cardiovascular: Rate and Rhythm: Normal rate and regular rhythm. Pulses: Normal pulses. Heart sounds: Normal heart sounds. Pulmonary: Effort: Pulmonary effort is normal. Breath sounds: Normal breath sounds. Abdominal: General: There is no distension. Palpations: Abdomen is soft. Tenderness: There is abdominal tenderness. Musculoskeletal: General: Normal range of motion. Skin: General: Skin is warm and dry. Capillary Refill: Capillary refill takes less than 2 seconds. Neurological: General: No focal deficit present. Mental Status: He is alert and oriented to person, place, and time. Psychiatric: Mood and Affect: Mood normal. Behavior: Behavior normal. TEACHING PROVIDER (Physician/PA/OVERHEAD CRANE OPERATOR) NOTE OF PERSONAL INVOLVEMENT IN CARE: I have personally seen and examined the patient and performed the medical decision-making components. I have reviewed the Advanced Practice Registered Nurse (OVERHEAD CRANE OPERATOR) Student's documentation and verified the findings in the note as written. Any additions or changes are noted in bold/italics. Signature: Mirella Valerio Date: 09/07/2021 Time: 3:26 PM Assessment and Plan ASSESSMENT/PLAN: 1. Gross hematuria - ICD9: 599.71, ICD10: R31.0 (primary diagnosis) Acute onset today - UA DIP, URINE (POC) positive blood 2. Left flank pain - ICD9: 789.09, ICD10: R10.9 Differential Diagnosis includes Kidney stones/colic, Cystitis and muscular CA mets 3. ZAHEER (acute kidney injury) (HCC) - ICD9: 584.9, ICD10: N17.9 Creat today 1.3 0.79 three weeks ago Concerns for obstructions and ZAHEER Sent to [facility] Samantha Miranda documented in this encounterJ.[facility]. [facility] History of Present illness Narrative* Blossom Funes APRN.DARIAN - 09/07/2021 9:39 AM EDT Chief Complaint Patient presents with: Established Patient HPI: Morris Baez is a 80 year old male who presents here today for follow up prostate cancer. Per Dr. Dixon's previous note: H/o hypertension, hyperlipidemia, GERD, arthritis of the lumbar spine, right knee and right hip. Ivan has a history of prostate cancer. Diagnosed with clinical stage T1c prostate cancer in 2017. Was seen by Dr. Jean on 02/28/2017. On exam there was no palpable nodule. Transrectal ultrasound revealed the gland to be moderately enlarged measuring 55 cc. There was homogeneous echo pattern throughout the gland with no focal lesion. Biopsies were performed. Pathology: 1. Left base prostate, biopsy (A) - Prostatic adenocarcinoma, Flor[place]ome score 7 (4+3), grade group 3 involving 90% of two of two biopsy cores. 2. Left mid prostate, biopsy (B) - Prostatic adenocarcinoma, [place] score 7 (4+3), grade group 3 involving 90% of two of two biopsy cores. 3. Left apex prostate, biopsy (C) - Prostatic adenocarcinoma, Ella score 7 (4+3), grade group 3 involving 80% of two of two biopsy cores. 4. Right base prostate, biopsy (D) - Prostatic adenocarcinoma, Ella score 7 (4+3), grade group 3 involving 80% of two of two biopsy cores. 5. Right mid prostate, biopsy (E) - Prostatic adenocarcinoma, Ella score 7 (4+3), grade group 3 involving 70% of two of two biopsy cores. 6. Right apex prostate, biopsy (F) - Prostatic adenocarcinoma, [place] score 7 (3+4), grade group 2 involving 25% of two of two biopsy cores. PSA was 16.69 ng/mL and the Florahome score was 7 (4+3). Bone scan and CT of the abdomen pelvis did not show evidence of metastatic disease. Previous therapy: 1) Short course of hormonal therapy and external beam radiation treatment to the prostate from 07/17/2017 through 09/07/2017. He was observed to have a decline in PSA to 0.10 on 10/05/2017. Thereafter PSA began increasing and was 3.54 on 07/14/2020. Most recent level 5.01 ng/mL on 11/18/2020. He underwent a fluciclovine PET scan 10/27/2020. It demonstrated a metastasis in T12. The SUV was 3.9. 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 Rests a while and has dinner then back out to the barn. Feels he voids to completion during the days. Typically has one episode nocturia. No dysuria or gross hematuria. Current therapy: 1) Lupron. 2) Zytiga and prednisone. Pt. here today with his . I think I have a kidney stone. I started with pain in my back Monday night. I ran out of Resolvermax can you give me a new prescription? He has not contacted his PCP or Urologist. Appetite: I haven't had an appetite since this pain started. Energy level: Not much right now. Denies fevers or recent illness. Resp:denies cough or sob Cardiac:denies chest pain/palpitations GI:denies abd pain, n/v, +constipation since L flank pain began :denies dysuria/hematuria Extrem:L flank pain Endo:+hot flashes, they do not wake pt. at night Skin:denies rashes Heme:denies bleeding The ROS is otherwise negative. Past medical history, appointments, medications, allergies reviewed. No changes. EXAM: BP 168/100 Pulse 69 Temp 36.6 C (97.8 F) Wt 112.7 kg (248 lb 8 oz) SpO2 94% BMI 34.66 kg/m APPEARANCE Well appearing, alert, in no acute distress, well-hydrated, well nourished. HEART RRR with normal S1 and S2, no murmurs LUNG clear to auscultation LYMPH NODES No cervical lymphadenopathy, No supraclavicular lymphadenopathy and No axillary lymphadenopathy. ABDOMEN bowel sounds normoactive, soft, non-tender, non-distended, without organomegaly or palpablemasses EXTREMITIES No edema BACK L flank tenderness NEURO Awake, alert and oriented x 3, Normal gait and No involuntary motions. SKIN Skin color, texture, turgor normal, no suspicious rashes or lesions LABS: Component Latest Ref Rng & Units 07/13/2021 08/16/2021 09/07/2021 WBC 3.70 - 11.00 k/uL 5.50 6.75 7.89 RBC 4.20 - 6.00 m/uL 4.63 4.31 4.69 Hemoglobin 13.0 - 17.0 g/dL 13.4 12.7 (L) 13.8 Hematocrit 39.0 - 51.0 % 40.7 38.0 (L) 41.4 MCV 80.0 - 100.0 fL 87.9 88.2 88.3 MCH 26.0 - 34.0 pg 28.9 29.5 29.4 MCHC 30.5 - 36.0 g/dL 32.9 33.4 33.3 RDW-CV 11.5 - 15.0 % 13.3 13.7 13.8 Platelet Count 150 - 400 k/uL 257 226 231 MPV 9.0 - 12.7 fL 8.8 (L) 8.9 (L) 9.3 Neut% % 65.8 60.4 65.5 Abs Neut (ANC) 1.45 - 7.50 k/uL 3.62 4.08 5.17 Lymph% % 19.5 19.3 19.5 Abs Lymph 1.00 - 4.00 k/uL 1.07 1.30 1.54 [place]nee% % 10.5 13.5 11.8 Abs [place] <0.87 k/uL 0.58 0.91 (H) 0.93 (H) Eosin% % 2.9 5.8 2.5 Abs Eosin <0.46 k/uL 0.16 0.39 0.20 Baso% % 0.9 0.9 0.4 Abs Baso <0.11 k/uL 0.05 0.06 0.03 Immature Gran % % 0.4 0.1 0.3 IMMATURE GRANS (ABS) <0.10 k/uL <0.03 <0.03 <0.03 NRBC /100 WBC 0.0 0.0 0.0 Absolute nRBC <0.01 k/uL <0.01 <0.01 <0.01 DTYPE Auto Auto Auto BMP/Hep. func./PSA: Pending ASSESSMENT/PLAN: 1. Prostate cancer (HCC) - ICD9: 185, ICD10: C61 (primary diagnosis) 2. Elevated PSA - ICD9: 790.93, ICD10: R97.20 3. Bone metastases (HCC) - ICD9: 198.5, ICD10: C79.51 Metastatic castration sensitive prostate cancer. - L flank pain that began Monday night. - Tolerating lupron well overall except for hot flashes. - Tolerating zytiga well. - Reviewed CBC with pt. - BMP/Hep. func./PSA pending. - Continue current medications. - Continue monthly labs. - Advised pt. to call urologist/Dr. Mejia for possible urgent visit-if not available then pt./wifeprefer to go to urgent care. - Lupron today and continue every 3 months. - Follow up with Dr. Dixon in 3 monhts with CBC/CMP/PSA. - Pt. aware to call office with any questions/concerns. The patient indicates understanding of these issues and agrees with the plan. All documentation from previous visit of 06/15/21-Dr. Dixon was copied and pasted, documentation has been reviewed and edited as necessary for today's visit. Blossom Funes APRN.DARIAN * Blossom Funes APRN.CNP - 09/07/2021 9:10 AM EDT Error. documented in this encounterJ.W. [facility]05-03-[facility]22 Nurse Note* Rosa Isela Camara LPN - 09/07/2021 9:26 AM EDT Lupron injection administered, left buttock,tolerated well, no immediate adverse reactions noted. See office notes Rosa Isela Camara LPN documented in this encounterJ.W. [facility]05-03-2022 Miscellaneous Notes* Telephone Encounter - Talya Britton - 09/07/2021 8:24 AM EDT Left message for patient to return call due to a change in schedule. When patient calls, please advise that patient will be seeing Blossom Funes at 9:[address] Dixon as something has come up and Dr. Dixon is unable to see him today. Talya Britton documented in this encounterJ.W. [facility]04-25-2022 Miscellaneous Notes* Telephone Encounter - Darrin Hassan [facility] - 08/30/2021 12:18 PM EDT Local pharmacy would not take GoodRx coupon for abiraterone please send new order to [facility] to provide them with a one time fill while waiting on application. Thank you. Darrin Hassan PharmD, SADIMIISABELLA Clinical Pharmacist, Oncology [facility] P: ; F: Pool: P [facility] Pool #: [id number] documented in this encounterJ.W. Ruby [facility]04-22-2022 Miscellaneous Notes* Telephone Encounter - Darrin Hassan RP - 08/27/2021 10:27 AM EDT Patient low on abiraterone please send a one time fill to local pharmacy while patient's PAP application is in process. Thank you. Darrin Hassan PharmD, BARBIE Clinical Pharmacist, Oncology [facility] P: ; F: Pool: P [facility] Pool #: [id number] documented in this encounterJ.W. [facility]04-11-2022 History of Present illness Narrative* Mackenzie Telles RN - 08/16/2021 3:40 PM EDT Pts BP 150/92 P 72. No c/o at this time. Pt stated his norm has been around 130's over 70's. Pt currently still taking all of his prescribed medications. Educated on when to seek emergency medical attention. Mackenzie Telles RN documented in this encounterJ.W. [facility]04-07-2022 Instructions* Patient Instructions* Darrin Tolentino MD - 08/12/2021 12:33 PM EDT Please get labs and urine test done on or after 01/28/2022 prior to your next visit. documented in this encounterJ.W. [facility]04-07-2022 History of Present illness Narrative* Darrin Tolentino MD - 08/12/2021 11:20 AM EDT Chief Complaint Patient presents with: Recheck: 6 months Derm Problem: LT hand HPI Morris Baez is a 80 year old male who presents here today for Chronic Medical Conditions and Acute Complaints.. Patient with hx of HTN, GERD, hyperlipidemia, Prostate cancer, Bone Mets, Lung nodule, Vit D def, arthritis, Hx of renal stones as well as those reviewed and addressed below and in ROS. Concern: Cyst LT hand x 1 year getting bigger in size. Past medical history, appointments, medications, allergies reviewed. Previous Medical History 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 BENIGN HYPERTENSION 10/17/2005 Bone metastases (HCC) 12/16/2020 Diverticulosis of colon 02/25/2009 Erectile dysfunction due to arterial insufficiency 04/15/2015 Functional diarrhea 01/14/2009 Gastroesophageal reflux disease with esophagitis without hemorrhage 08/04/2020 History of kidney stones 10/28/2011 Hypertrophy of prostate without urinary obstruction and other lower urinary tract symptoms (LUTS) Lung nodule seen on imaging study 01/02/2019 12/31/19 CT chest WO: stable nodules, largest 8mm: 1 year f/u 09/27/18 CT chest IVCON: multiple bilateral, largest 8mm right mid lung following CXRs 08/21/18 atelectasis vs infltrate, 09/13/18 lung nodule Medicare annual wellness visit, subsequent 02/04/2021 Medicare Part B: Last done: 02/04/2021 Mixed hyperlipidemia 10/28/2011 Prostate cancer (HCC) 04/27/2017 Right inguinal hernia Vitamin D deficiency 01/07/2020 Previous Surgical History PAST SURGICAL HISTORY Procedure Laterality Date 2D ECHO (EXEP) 02/09/2021 EF=55%, Mod LVH, 1-2+ , mild dyast dysf AMPUTATION TOE,MT-P JT Left 04/2020 second toe-Dr. Lai ARTHROSCOPY KNEE DIAGNOSTIC W/WO SYNOVIAL BX SPX 08/2003 Arthroscopy, knee, meniscus CARPAL TUNNEL Right 05/18/2018 Dr. Oliver Devlin COLONOSCOPY W/BIOPSY SINGLE/MULTIPLE 02/25/2009 LAPAROSCOPY SURG RPR INITIAL INGUINAL HERNIA 05/28/2013 Right PAST SURGICAL HISTORY OF Left inguninal hernia repair TONSILLECTOMY PRIMARY/SECONDARY <AGE 11 Tonsillectomy and adnoids TOTAL KNEE REPLACEMENT 03/25/2014 left TKR, Dr. Posada TOTAL KNEE REPLACEMENT Right 03/19/2021 Family History FAMILY HISTORY Problem Relation Age of Onset other (MACULAR DEGENERATION) Mother other (CHF) Father Patient Allergies ALLERGIES No Known Allergies Current Medications Current Outpatient Medications on File Prior to Visit Medication Sig tamsulosin (FLOMAX) 0.4 mg Take 1 capsule by mouth daily at bedtime. ZINC ORAL Take 1 tablet by mouth once daily. ascorbic acid (VITAMIN C ORAL) Take 1 tablet by mouth once daily. metoprolol succinate ER (TOPROL XL) 25 mg 24 hr tablet TAKE 1 TABLET EVERY DAY abiraterone 250 mg tablet Take 4 tablets (1000 mg) by mouth once daily on an empty stomach, 1 hour before or 2 hours after a meal. predniSONE (DELTASONE) 5 mg tablet Take 1 tablet by mouth once daily. sildenafil (VIAGRA) 50 mg tablet Take 1 tablet by mouth as needed. Take on epill 30-60 minutes prior to sexual activity (Patient not taking: Reported on 07/29/2021 ) Cholecalciferol, Vitamin D3, 125 mcg (5,000 unit) cap Take 1 capsule by mouth once daily. aspirin, enteric coated (ASPIRIN, ENTERIC COATED) 81 mg EC tablet Take 81 mg by mouth once daily. MV with Npw-Qidtxsyb-Sbnsik (CENTRUM SILVER) 0.4-300-250 mg-mcg-mcg tab Take 1 tablet by mouth oncedaily. Omeprazole Magnesium (PRILOSEC OTC) 20 mg tablet Take 1 tablet by mouth daily before breakfast. 1/2hr before meal. Blood Pressure Monitor (BLOOD PRESSURE KIT) 1 Each twice daily. lisinopril-hydroCHLOROthiazide (PRINZIDE, ZESTORETIC) 20-25 mg per tablet Take 1 tablet by mouth every morning. triamcinolone acetonide (KENALOG) 0.1 % cream Apply to affected area twice daily. APPLY TO AFFECTEDAREA Current Facility-Administered Medications on File Prior to Visit Medication perflutren lipid microspheres 1.3 mL in NaCl (PF) 0.9% 10 mL injection (DEFINITY) sodium chloride 0.9 % (flush) 10 mL (BD POSIFLUSH) Social History Social History Tobacco Use Smoking status: Never Smoker Smokeless tobacco: Never Used Vaping Use Vaping Use: Never used Substance Use Topics Alcohol use: No Drug use: No Review of Symptoms REVIEW OF SYSTEMS GENERAL: No weight loss, malaise or fevers NECK: Negative for lumps, goiter, pain and significant neck swelling RESPIRATORY: Negative for cough, hemoptysis, wheezing, COPD, dyspnea or shortness of breath CARDIOVASCULAR: Negative for chest pain, increased leg swelling, hypertension, CHF or palpitations GI: No nausea, vomiting, or diarrhea and No heartburn or reflux symptoms MUSCULOSKELETAL: has a cyst on the left hand that rivera been getting larger. No pain. NEURO: No history of syncope, paralysis, seizures or tremors. No sudden vision changes. Have some headache's though seldom and a lot of times it's due to not having eaten yet. EXAM: BP 126/82 Pulse 60 Resp 14 Wt 114.3 kg (252 lb) BMI 35.15 kg/m Last 4 Encounter Wt Readings: Date: Wt: 08/12/2021 114.3 kg (252 lb) 07/29/2021 113.2 kg (249 lb 9.6 oz) 06/15/2021 116.1 kg (256 lb) 04/07/2021 109.8 kg (242 lb) General Appearance: Well appearing, alert, in no acute distress, well-hydrated, well nourished. andObese. Neck: Supple, no adenopathy; thyroid symmetric, normal size, no bruits. Lungs: Lungs clear to auscultation. No wheezing, rhonchi, rales.. Heart: RRR without gallop, or rubs. No ectopy. Has 2/6 EDUARDO Abdomen: Normal abdominal exam, Abdomen soft, non-tender. Bowel sounds normal. No masses, organomegaly. Extremities: No deformities, edema, skin discoloration. Musculoskeletal: has a lump on the back of the left hand. Non-tender. Peripheral Pulses: Normal. Neurologic: Gait normal. Sensation to light touch intact.. Health Maintenance List SHINGRIX VACCINE(1 of 2) Never done ADVANCE DIRECTIVE DISCUSSION Never done COVID-19 VACCINE(1) due on 02/04/2022 INFLUENZA(Season Ended) due on 01/06/2022 DIABETES SCREEN due on 07/13/2024 DTAP,TDAP,TD(3 - Td or Tdap) due on 01/06/2030 PNEUMOVAX AGE 65 AND OVER WITH 5YR LOOKBACK Completed MENINGOCOCCAL CONJUGATE Aged Out Data reviewed Component Latest Ref Rng & Units 03/17/2021 07/13/2021 08/07/2021 WBC 3.70 - 11.00 k/uL 4.7 5.50 RBC 4.20 - 6.00 m/uL 4.73 4.63 Hemoglobin 13.0 - 17.0 g/dL 13.4 Hematocrit 39.0 - 51.0 % 40.7 MCV 80.0 - 100.0 fL 87.5 87.9 MCH 26.0 - 34.0 pg 29.6 28.9 MCHC 30.5 - 36.0 g/dL 33.8 32.9 RDW-CV 11.5 - 15.0 % 13.3 Platelet Count 150 - 400 k/uL 257 MPV 9.0 - 12.7 fL 9.3 8.8 (L) Neut% % 65.8 Abs Neut (ANC) 1.45 - 7.50 k/uL 3.62 Lymph% % 19.5 Abs Lymph 1.00 - 4.00 k/uL 1.07 [place]nee% % 10.5 Abs [place] <0.87 k/uL 0.58 Eosin% % 2.9 Abs Eosin <0.46 k/uL 0.16 Baso% % 0.9 Abs Baso <0.11 k/uL 0.05 Immature Gran % % 0.4 IMMATURE GRANS (ABS) <0.10 k/uL <0.03 NRBC /100 WBC 0.0 Absolute nRBC <0.01 k/uL <0.01 DTYPE Auto NA 136 - 145 mmol/L 138 K 3.5 - 5.1 mmol/L 3.9 Chloride 97 - 105 mmol/L 104 101 CO2 22 - 30 mmol/L 28.0 25 Glucose 74 - 99 mg/dL 80 108 (H) BUN 9 - 24 mg/dL 19 (A) 15 Creatinine 0.73 - 1.22 mg/dL 0.81 0.67 (L) GFR mL/MIN 97 GFR AFR AMER mL/MIN 117 Calcium 8.5 - 10.1 mg/dL 9.0 Sodium 136 - 144 mmol/L 137 Potassium 3.7 - 5.1 mmol/L 3.5 (L) Anion Gap 9 - 18 mmol/L 11 Calcium 8.5 - 10.2 mg/dL 9.3 eGFR >=60 mL/min/1.73m 94 HGB 14 - 16.5 g/dL 14.0 HCT 39 - 55 % 41.4 Platelet 140 - 440 K/uL 232 Total Cholesterol, Nonfasting <200 mg/dL 229 (H) Triglycerides, Nonfasting <150 mg/dL 135 HDL Cholesterol, Nonfasting >39 mg/dL 50 LDL Cholesterol, Nonfasting <100 mg/dL 152 (H) Non HDL Cholesterol, Nonfasting <130 mg/dL 179 (H) VLDL Cholesterol, Nonfasting <30 mg/dL 27 Total Chol/HDL Ratio, Nonfasting <5.10 mg/dL 4.58 LDL/HDL Ratio, Nonfasting <2.54 mg/dL 3.04 (H) Albumin 3.9 - 4.9 g/dL 3.9 Bilirubin, Total 0.2 - 1.3 mg/dL 0.7 Bilirubin, Conjug <0.2 mg/dL <0.2 Alkaline Phosphatase 38 - 113 U/L 71 AST 14 - 40 U/L 23 ALT 10 - 54 U/L 12 Protein, Total 6.3 - 8.0 g/dL 7.6 Hemoglobin A1C 0 - 5.7 % 5.7 Vitamin D 25 Hydroxy 31.0 - 80.0 ng/mL 26.6 (L) TSH 0.270 - 4.200 mIU/L 1.580 Free T4 0.9 - 1.7 ng/dL 1.5 A/P ASSESSMENT/PLAN: 1. Essential hypertension, benign - ICD9: 401.1, ICD10: I10 (primary diagnosis) - good control - Continue current medication(s) - Recommended regular aerobic exercise. - Recommend home blood pressure monitoring, to bring results in on next visit - Goal of BP <130/80 - METOPROLOL SUCCINATE ER 25 MG TABLET,EXTENDED RELEASE 24 HR 2. Gastroesophageal reflux disease with esophagitis without hemorrhage - ICD9: 530.81, 530.10, ICD10: K21.00 - Continue treatment with Prilosec 20 mg QD 3. Mixed hyperlipidemia - ICD9: 272.2, ICD10: E78.2 - suboptimal control - Encouraged following a low fat, low cholesterol diet. - Discussed the benefits of regular aerobic exercise and weight loss. - Encouraged following a low carbohydrate, healthy oil intake diet. - Discussed statin and patient currently not interested. 4. Vitamin D deficiency - ICD9: 268.9, ICD10: E55.9 - Cont replacement 5. Bone metastases (HCC) - ICD9: 198.5, ICD10: C79.51 - Seeing oncology 6. Prostate cancer (HCC) - ICD9: 185, ICD10: C61 - Seeing oncology 7. Nonrheumatic aortic valve stenosis - ICD9: 424.1, ICD10: I35.0 - Stable no changes. 8. Mass of soft tissue of hand - ICD9: 729.99, ICD10: M79.89 - CONSULT TO ORTHOPAEDICS Signed Prescriptions Disp Refills Omeprazole Magnesium (PRILOSEC OTC) 20 mg tablet 90 tablet 1 Sig: Take 1 tablet by mouth daily before breakfast. 1/2 hr before meal. CRISTIANO: No triamcinolone acetonide (KENALOG) 0.1 % cream 60 g 2 Sig: Apply to affected area twice daily. APPLY TO AFFECTED AREA CRISTIANO: No lisinopril-hydroCHLOROthiazide (PRINZIDE, ZESTORETIC) 20-25 mg per tablet 90 tablet 3 Sig: Take 1 tablet by mouth every morning. CRISTIANO: No metoprolol succinate ER (TOPROL XL) 25 mg 24 hr tablet 90 tablet 1 Sig: Take 1 tablet by mouth once daily. CRISTIANO: No F/u 6 months extensive check CMP, Lipid, UA, CBC, B12, Mg, Vit D prior. Darrin Tolentino MD documented in this encounterJ.W. [facility]04-05-2022 Miscellaneous Notes* Telephone Encounter - Shahnaz Sanchez - 08/10/2021 8:57 AM EDT Spoke to spouse and r/s. Shahnaz Sanchez * Telephone Encounter - Gaby Rich - 08/10/2021 8:44 AM EDT Pt is not going to be available for his appt today. Please call his spouse to r/s. documented in this encounterJ.W. [facility]04-04-2022 Miscellaneous Notes* Telephone Encounter - Tania Molina Ma - 08/09/2021 1:38 PM EDT Pt had repeat labs done. Tania Molina Ma * Telephone Encounter - Delicia Franklin LPN - 08/06/2021 12:06 PM EDT Left message for pt's to contact office. Delicia Franklin LPN * Telephone Encounter - Darrin Tolentino MD - 08/06/2021 12:02 PM EDT Let know patient just did labs 2 weeks ago. The only thing not in there is the thyroid studiesso I placed them. He does not need to fast. * Telephone Encounter - Talya Salinas RN - 08/06/2021 9:57 AM EDT Patient's calls and states that patient has appointment with provider on 08/12/2021. asking if provider wants to order labs prior to appointment? asking if provider wants to check TSH levels? states that has never been done and patient has been feeling tired. Please review and advise, Talya Salinas RN documented in this encounterJ.W. [facility]03-24-2022 Instructions* Patient Instructions* iMrella Valerio APRN.[place] [employer] [employer] - 07/29/2021 9:59 AM EDT COUGH: Your doctor wants you to have this information about coughing. The body has a cough reflex which helps expel mucous secretions and irritants from the lung and airway passages. Cough spasms are periods of continuous coughing lasting several minutes. Most coughs is caused by virus infections which may last for up to 2-3 weeks. Coughing helps to protect the lung from pneumonia. A persistent cough lasting longer than 4-6 weeks requires medical evaluation by your primary care doctor. Treatment of cough includes measures to loosen the cough and thin the mucous. Warm liquids, cough drops, and nonprescription cough medicine may help reduce dry hacking cough. Use a humidifier if necessary as dry air can make coughs worse. Ultrasonic humidifiers are especially useful as they kill molds and many bacteria. Some cough medicines have antihistamines, decongestants, or alcohol in them; there is no proof that any of these help control cough. Prescription cough medicine or those with dextromethorphan (DM) should be reserved for dry coughs that prevent sleep or cause spasms or chest pain. Avoid any exposure to cigarette smoke as this will worsen the cough or make it last much longer. Call your doctor right away if you or your child have increased breathing difficulty, a high fever, a cough that lasts longer than 3 weeks, or other serious complaints.RESPIRATORY INFECTION GENERAL INFORMATION: An upper respiratory tract infection, or cold, is a viral infection of the airway passages. It can be caused by any one of almost 200 different viruses. Common symptoms include a runny or stuffy nose, sneezing, watery eyes, sore throat, cough, and slight fever. Colds are contagious, especially during the first 3 or 4 days and cannot be cured by antibiotics. They are spread by coughs, sneezes, anddirect contact, especially [id number]. A respiratory tract infection usually clears up in a few days, but some people may be sick for a week or two. INSTRUCTIONS: 1. Be careful not to blow your nose too hard because this may cause a nosebleed. 2. Use a cool-mist humidifier (vaporizer) to increase air moisture. This will make it easier for you to breathe. Do not use hot steam. 3. Rest as much as possible and get plenty of sleep. 4. Wash your hands often, especially after you blow your nose. Cover your mouth and nose with a tissue when you sneeze or cough. 5. Drink plenty of clear fluids (8 glasses a day) such as water, fruit juice, tea, clear soups, andcarbonated beverages. CONTACT YOUR DOCTOR IF : 1. Your fever lasts more than 3 days. 2. You have a sore throat that gets worse or you see white or yellow spots in your throat. 3. Your cough gets worse or lasts more than 10 days. 4. You develop a rash anywhere on your skin. 5. You have an earache or a headache. 6. You have thick greenish or yellowish discharge from your nose. RETURN IMMEDIATELY IF: 1. You cough up thick yellow, green, ryan, or bloody sputum. 2. You have difficulty breathing, pain in your chest, or your skin or nails look ryan or blue. 3. You have shaking chills or a temperature over 102 F (39 C). [facility] History of Present illness Narrative* Mirella Valerio APRN.CNP - 07/29/2021 9:53 AM EDT This note was created using NoteWriter. Subjective Morris Baez is a 80 year old male. 80 year old male with PMH prostate CA (diagnosed 6 to 7 years ago, currently on chemo medicine), hyperlipidemia, HTN presents for illness. Acute onset 3 weeks ago + cough and cold like symptoms. +headache +productive cough yellow and green Denies CP or SOB. Denies fever or chills. Denies N/V/D. Has used cold and flu Denies tobacco usage. The history is provided by the patient and the spouse. Cough This is a new problem. The current episode started more than 1 week ago. The problem occurs constantly. The problem has not changed since onset.The cough is productive of sputum. There has been no fever. Associated symptoms include headaches. Pertinent negatives include no chest pain, no chills, nosweats, no weight loss, no ear congestion, no ear pain, no rhinorrhea, no sore throat, no myalgias,no shortness of breath, no wheezing and no eye redness. Treatments tried: cough and cold OTC. He isnot a smoker. His past medical history does not include bronchitis, pneumonia, bronchiectasis, COPD, emphysema or asthma. 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 BENIGN HYPERTENSION 10/17/2005 Bone metastases (HCC) 12/16/2020 Diverticulosis of colon 02/25/2009 Erectile dysfunction due to arterial insufficiency 04/15/2015 Functional diarrhea 01/14/2009 Gastroesophageal reflux disease with esophagitis without hemorrhage 08/04/2020 History of kidney stones 10/28/2011 Hypertrophy of prostate without urinary obstruction and other lower urinary tract symptoms (LUTS) Lung nodule seen on imaging study 01/02/2019 12/31/19 CT chest WO: stable nodules, largest 8mm: 1 year f/u 09/27/18 CT chest IVCON: multiple bilateral, largest 8mm right mid lung following CXRs 08/21/18 atelectasis vs infltrate, 09/13/18 lung nodule Medicare annual wellness visit, subsequent 02/04/2021 Medicare Part B: Last done: 02/04/2021 Mixed hyperlipidemia 10/28/2011 Prostate cancer (HCC) 04/27/2017 Right inguinal hernia Vitamin D deficiency 01/07/2020 PAST SURGICAL HISTORY Procedure Laterality Date 2D ECHO (EXEP) 02/09/2021 EF=55%, Mod LVH, 1-2+ , mild dyast dysf AMPUTATION TOE,MT-P JT Left 04/2020 second toe-Dr. Lai ARTHROSCOPY KNEE DIAGNOSTIC W/WO SYNOVIAL BX SPX 08/2003 Arthroscopy, knee, meniscus CARPAL TUNNEL Right 05/18/2018 Dr. Oliver Devlin COLONOSCOPY W/BIOPSY SINGLE/MULTIPLE 02/25/2009 LAPAROSCOPY SURG RPR INITIAL INGUINAL HERNIA 05/28/2013 Right PAST SURGICAL HISTORY OF Left inguninal hernia repair TONSILLECTOMY PRIMARY/SECONDARY <AGE 11 Tonsillectomy and adnoids TOTAL KNEE REPLACEMENT 03/25/2014 left TKR, Dr. Posada TOTAL KNEE REPLACEMENT Right 03/19/2021 ALLERGIES Patient has no known allergies. MEDICATIONS tamsulosin (FLOMAX) 0.4 mg Take 1 capsule by mouth daily at bedtime. ZINC ORAL Take 1 tablet by mouth once daily. ascorbic acid (VITAMIN C ORAL) Take 1 tablet by mouth once daily. metoprolol succinate ER (TOPROL XL) 25 mg 24 hr tablet TAKE 1 TABLET EVERY DAY abiraterone 250 mg tablet Take 4 tablets (1000 mg) by mouth once daily on an empty stomach, 1 hour before or 2 hours after a meal. predniSONE (DELTASONE) 5 mg tablet Take 1 tablet by mouth once daily. Cholecalciferol, Vitamin D3, 125 mcg (5,000 unit) cap Take 1 capsule by mouth once daily. aspirin, enteric coated (ASPIRIN, ENTERIC COATED) 81 mg EC tablet Take 81 mg by mouth once daily. MV with Rec-Tucoalnp-Pddvvw (CENTRUM SILVER) 0.4-300-250 mg-mcg-mcg tab Take 1 tablet by mouth oncedaily. Omeprazole Magnesium (PRILOSEC OTC) 20 mg tablet Take 1 tablet by mouth daily before breakfast. 1/2hr before meal. Blood Pressure Monitor (BLOOD PRESSURE KIT) 1 Each twice daily. lisinopril-hydroCHLOROthiazide (PRINZIDE, ZESTORETIC) 20-25 mg per tablet Take 1 tablet by mouth every morning. triamcinolone acetonide (KENALOG) 0.1 % cream Apply to affected area twice daily. APPLY TO AFFECTEDAREA doxycycline (VIBRA-TABS) 100 mg tablet Take 1 tablet by mouth twice daily for 10 days. sildenafil (VIAGRA) 50 mg tablet Take 1 tablet by mouth as needed. Take on epill 30-60 minutes prior to sexual activity FAMILY HISTORY Problem Relation Age of Onset other (MACULAR DEGENERATION) Mother other (CHF) Father Social History Tobacco Use Smoking status: Never Smoker Smokeless tobacco: Never Used Vaping Use Vaping Use: Never used Substance Use Topics Alcohol use: No Drug use: No Review of Systems Constitutional: Negative for activity change, appetite change, chills, fatigue, fever and weight loss. HENT: Positive for congestion. Negative for ear pain, rhinorrhea and sore throat. Eyes: Negative for pain, discharge, redness and itching. Respiratory: Positive for cough. Negative for apnea, chest tightness, shortness of breath and wheezing. Cardiovascular: Negative for chest pain, palpitations and leg swelling. Gastrointestinal: Negative for abdominal pain, diarrhea, nausea and vomiting. Musculoskeletal: Negative for arthralgias, back pain, gait problem and myalgias. Skin: Negative for color change, pallor and rash. Allergic/Immunologic: Negative for environmental allergies and food allergies. Neurological: Positive for headaches. Negative for dizziness and facial asymmetry. Hematological: Negative for adenopathy. Does not bruise/bleed easily. Psychiatric/Behavioral: Negative for agitation and behavioral problems. Objective BP 158/72 Pulse (!) 47 Temp 36.4 C (97.6 F) (Temporal) Resp 16 Wt 113.2 kg (249 lb 9.6 oz) SpO2 97% BMI 34.81 kg/m Physical Exam Vitals and nursing note reviewed. Constitutional: General: He is not in acute distress. Appearance: Normal appearance. He is not ill-appearing, toxic-appearing or diaphoretic. Comments: Elderly appearing. Mildly uncomfortable appearing HENT: Head: Normocephalic and atraumatic. Right Ear: External ear normal. Left Ear: External ear normal. Nose: Nose normal. No congestion or rhinorrhea. Mouth/Throat: Mouth: Mucous membranes are moist. Pharynx: Oropharynx is clear. No oropharyngeal exudate or posterior oropharyngeal erythema. Eyes: General: Right eye: No discharge. Left eye: No discharge. Extraocular Movements: Extraocular movements intact. Conjunctiva/sclera: Conjunctivae normal. Pupils: Pupils are equal, round, and reactive to light. Cardiovascular: Rate and Rhythm: Normal rate and regular rhythm. Pulses: Normal pulses. Heart sounds: Normal heart sounds. No murmur heard. No friction rub. No gallop. Pulmonary: Effort: Pulmonary effort is normal. No respiratory distress. Breath sounds: Normal breath sounds. No stridor. No wheezing, rhonchi or rales. Comments: Harsh cough noted with deep inspiration Chest: Chest wall: No tenderness. Abdominal: General: Abdomen is flat. There is no distension. Palpations: Abdomen is soft. There is no mass. Tenderness: There is no abdominal tenderness. There is no guarding or rebound. Hernia: No hernia is present. Musculoskeletal: General: No swelling, tenderness, deformity or signs of injury. Normal range of motion. Cervical back: Normal range of motion and neck supple. No rigidity or tenderness. Right lower leg: No edema. Left lower leg: No edema. Lymphadenopathy: Cervical: No cervical adenopathy. Skin: General: Skin is warm and dry. Capillary Refill: Capillary refill takes less than 2 seconds. Coloration: Skin is not jaundiced or pale. Findings: No bruising, lesion or rash. Neurological: General: No focal deficit present. Mental Status: He is alert and oriented to person, place, and time. Cranial Nerves: No cranial nerve deficit. Sensory: No sensory deficit. Motor: No weakness. Coordination: Coordination normal. Gait: Gait normal. Deep Tendon Reflexes: Reflexes normal. Psychiatric: Mood and Affect: Mood normal. Behavior: Behavior normal. Thought Content: Thought content normal. Assessment and Plan ASSESSMENT/PLAN: 1. Cough - ICD9: 786.2, ICD10: R05.9 (primary diagnosis) X 3 weeks Worsening No red flags Hemodynamically stable. - XR CHEST 2V FRONTAL/LAT-obtained, and will my chart message results. 2. URI, acute - ICD9: 465.9, ICD10: J06.9 Ongoing x 3 weeks Symptoms worsening - Symptomatic treatment with prn analgesia - Supportive care with fluids and rest - The patient may also use OTC cough and cold meds as needed, warm salt water gargles, throat lozenges and/or OTC throat spray as needed, nasal saline gtts and suction prn and given that it has been 3 weeks Started on Doxycyline . - Follow up in 3-5 days if symptoms persist or sooner if worsening of symptoms - Discussed red flags and reasons to seek ED. Mirella Valerio APRN.DARIAN documented in this encounter[facility] History of Past illness Narrative* Problem Noted Date Resolved Date Elevated PSA 02/15/2017 01/02/2019 documented as of this encounter (statuses as of 07/29/2021) [address] History of Past illness Narrative* Problem Noted Date Resolved Date Elevated PSA 02/15/2017 01/02/2019 documented as of this encounter (statuses as of 07/29/2021) [address]2017 History of Past illness Narrative* Problem Noted Date Resolved Date Elevated PSA 02/15/2017 01/02/2019 documented as of this encounter (statuses as of 08/09/2021) [address] History of Past illness Narrative* Problem Noted Date Resolved Date Elevated PSA 02/15/2017 01/02/2019 documented as of this encounter (statuses as of 08/09/2021) [address]2017 History of Past illness Narrative* Problem Noted Date Resolved Date Elevated PSA 02/15/2017 01/02/2019 documented as of this encounter (statuses as of 08/10/2021) [address] History of Past illness Narrative* Problem Noted Date Resolved Date Elevated PSA 02/15/2017 01/02/2019 documented as of this encounter (statuses as of 08/10/2021) [address] History of Past illness Narrative* Problem Noted Date Resolved Date Elevated PSA 02/15/2017 01/02/2019 documented as of this encounter (statuses as of 08/12/2021) [address] History of Past illness Narrative* Problem Noted Date Resolved Date Elevated PSA 02/15/2017 01/02/2019 documented as of this encounter (statuses as of 08/16/2021) [address]2017 History of Past illness Narrative* Problem Noted Date Resolved Date Elevated PSA 02/15/2017 01/02/2019 documented as of this encounter (statuses as of 08/27/2021) [address]2017 History of Past illness Narrative* Problem Noted Date Resolved Date Elevated PSA 02/15/2017 01/02/2019 documented as of this encounter (statuses as of 08/30/2021) [address]2017 History of Past illness Narrative* Problem Noted Date Resolved Date Elevated PSA 02/15/2017 01/02/2019 documented as of this encounter (statuses as of 09/06/2021) [address]2017 History of Past illness Narrative* Problem Noted Date Resolved Date Elevated PSA 02/15/2017 01/02/2019 documented as of this encounter (statuses as of 09/07/2021) [address] History of Past illness Narrative* Problem Noted Date Resolved Date Elevated PSA 02/15/2017 01/02/2019 documented as of this encounter (statuses as of 09/09/2021) [address] History of Past illness Narrative* Problem Noted Date Resolved Date Elevated PSA 02/15/2017 01/02/2019 documented as of this encounter (statuses as of 09/09/2021) [address] History of Past illness Narrative* Problem Noted Date Resolved Date Elevated PSA 02/15/2017 01/02/2019 documented as of this encounter (statuses as of 09/10/2021) [address] History of Past illness Narrative* Problem Noted Date Resolved Date Elevated PSA 02/15/2017 01/02/2019 documented as of this encounter (statuses as of 09/17/2021) [address] History of Past illness Narrative* Problem Noted Date Resolved Date Elevated PSA 02/15/2017 01/02/2019 documented as of this encounter (statuses as of 09/21/2021) [address] History of Past illness Narrative* Problem Noted Date Resolved Date Elevated PSA 02/15/2017 01/02/2019 documented as of this encounter (statuses as of 10/01/2021) [address] History of Past illness Narrative* Problem Noted Date Resolved Date Elevated PSA 02/15/2017 01/02/2019 documented as of this encounter (statuses as of 10/05/2021) [address] History of Past illness Narrative* Problem Noted Date Resolved Date Elevated PSA 02/15/2017 01/02/2019 documented as of this encounter (statuses as of 11/15/2021) [address] History of Past illness Narrative* Problem Noted Date Resolved Date Elevated PSA 02/15/2017 01/02/2019 documented as of this encounter (statuses as of 11/15/2021) [address] History of Past illness Narrative* Problem Noted Date Resolved Date Elevated PSA 02/15/2017 01/02/2019 documented as of this encounter (statuses as of 11/19/2021) [address] History of Past illness Narrative* Problem Noted Date Resolved Date Elevated PSA 02/15/2017 01/02/2019 documented as of this encounter (statuses as of 11/23/2021) [address] History of Past illness Narrative* Problem Noted Date Resolved Date Elevated PSA 02/15/2017 01/02/2019 documented as of this encounter (statuses as of 11/30/2021) [address] History of Past illness Narrative* Problem Noted Date Resolved Date Elevated PSA 02/15/2017 01/02/2019 documented as of this encounter (statuses as of 12/02/2021) [address]2017 History of Past illness Narrative* Problem Noted Date Resolved Date Elevated PSA 02/15/2017 01/02/2019 documented as of this encounter (statuses as of 12/29/2021) [address]2017 History of Past illness Narrative* Problem Noted Date Resolved Date Elevated PSA 02/15/2017 01/02/2019 documented as of this encounter (statuses as of 12/29/2021) [address] History of Past illness Narrative* Problem Noted Date Resolved Date Elevated PSA 02/15/2017 01/02/2019 documented as of this encounter (statuses as of 01/07/2022) [address] History of Past illness Narrative* Problem Noted Date Resolved Date Elevated PSA 02/15/2017 01/02/2019 documented as of this encounter (statuses as of 01/11/2022) [address] History of Past illness Narrative* Problem Noted Date Resolved Date Elevated PSA 02/15/2017 01/02/2019 documented as of this encounter (statuses as of 01/13/2022) [address] History of Past illness Narrative* Problem Noted Date Resolved Date Elevated PSA 02/15/2017 01/02/2019 documented as of this encounter (statuses as of 01/26/2022) [address]2017 History of Past illness Narrative* Problem Noted Date Resolved Date Elevated PSA 02/15/2017 01/02/2019 documented as of this encounter (statuses as of 01/26/2022) [address]2017 History of Past illness Narrative* Problem Noted Date Resolved Date Elevated PSA 02/15/2017 01/02/2019 documented as of this encounter (statuses as of 02/22/2022) [address] History of Past illness Narrative* Problem Noted Date Resolved Date Elevated PSA 02/15/2017 01/02/2019 documented as of this encounter (statuses as of 02/28/2022) [address] History of Past illness Narrative* Problem Noted Date Resolved Date Elevated PSA 02/15/2017 01/02/2019 documented as of this encounter (statuses as of 02/28/2022) [address]2017 History of Past illness Narrative* Problem Noted Date Resolved Date Elevated PSA 02/15/2017 01/02/2019 documented as of this encounter (statuses as of 03/04/2022) [address]2017 History of Past illness Narrative* Problem Noted Date Resolved Date Elevated PSA 02/15/2017 01/02/2019 documented as of this encounter (statuses as of 03/04/2022) [address]2017 History of Past illness Narrative* Problem Noted Date Resolved Date Elevated PSA 02/15/2017 01/02/2019 documented as of this encounter (statuses as of 03/11/2022) [address]2017 History of Past illness Narrative* Problem Noted Date Resolved Date Elevated PSA 02/15/2017 01/02/2019 documented as of this encounter (statuses as of 03/22/2022) [address]2017 History of Past illness Narrative* Problem Noted Date Resolved Date Elevated PSA 02/15/2017 01/02/2019 documented as of this encounter (statuses as of 03/23/2022) [address]2017 History of Past illness Narrative* Problem Noted Date Resolved Date Elevated PSA 02/15/2017 01/02/2019 documented as of this encounter (statuses as of 04/29/2022) [address]2017 History of Past illness Narrative* Problem Noted Date Resolved Date Elevated PSA 02/15/2017 01/02/2019 documented as of this encounter (statuses as of 05/17/2022) [address]2017 History of Past illness Narrative* Problem Noted Date Resolved Date Elevated PSA 02/15/2017 01/02/2019 documented as of this encounter (statuses as of 05/23/2022) [address]2017 History of Past illness Narrative* Problem Noted Date Resolved Date Elevated PSA 02/15/2017 01/02/2019 documented as of this encounter (statuses as of 05/23/2022) [address]2017 History of Past illness Narrative* Problem Noted Date Resolved Date Elevated PSA 02/15/2017 01/02/2019 documented as of this encounter (statuses as of 05/25/2022) [address]2017 History of Past illness Narrative* Problem Noted Date Resolved Date Elevated PSA 02/15/2017 01/02/2019 documented as of this encounter (statuses as of 05/30/2022) [address]2017 History of Past illness Narrative* Problem Noted Date Resolved Date Elevated PSA 02/15/2017 01/02/2019 documented as of this encounter (statuses as of 05/30/2022) [address]2017 History of Past illness Narrative* Problem Noted Date Resolved Date Elevated PSA 02/15/2017 01/02/2019 documented as of this encounter (statuses as of 05/31/2022) [address]2017 History of Past illness Narrative* Problem Noted Date Resolved Date Elevated PSA 02/15/2017 01/02/2019 documented as of this encounter (statuses as of 05/31/2022) [address]2017 History of Past illness Narrative* Problem Noted Date Resolved Date Elevated PSA 02/15/2017 01/02/2019 documented as of this encounter (statuses as of 06/01/2022) [address]2017 History of Past illness Narrative* Problem Noted Date Resolved Date Elevated PSA 02/15/2017 01/02/2019 documented as of this encounter (statuses as of 06/07/2022) [address]2017 History of Past illness Narrative* Problem Noted Date Resolved Date Elevated PSA 02/15/2017 01/02/2019 documented as of this encounter (statuses as of 06/09/2022) [address] History of Past illness Narrative* Problem Noted Date Resolved Date Elevated PSA 02/15/2017 01/02/2019 documented as of this encounter (statuses as of 06/22/2022) [address] History of Past illness Narrative* Problem Noted Date Resolved Date Elevated PSA 02/15/2017 01/02/2019 documented as of this encounter (statuses as of 06/23/2022) [address]2017 History of Past illness Narrative* Problem Noted Date Resolved Date Elevated PSA 02/15/2017 01/02/2019 documented as of this encounter (statuses as of 06/23/2022) [address]2017 History of Past illness Narrative* Problem Noted Date Resolved Date Elevated PSA 02/15/2017 01/02/2019 documented as of this encounter (statuses as of 06/29/2022) [address]2017 History of Past illness Narrative* Problem Noted Date Resolved Date Elevated PSA 02/15/2017 01/02/2019 documented as of this encounter (statuses as of 06/30/2022) [address]2017 History of Past illness Narrative* Problem Noted Date Resolved Date Elevated PSA 02/15/2017 01/02/2019 documented as of this encounter (statuses as of 07/06/2022) [address] History of Past illness Narrative* Problem Noted Date Resolved Date Elevated PSA 02/15/2017 01/02/2019 documented as of this encounter (statuses as of 07/11/2022) [address] History of Past illness Narrative* Problem Noted Date Resolved Date Elevated PSA 02/15/2017 01/02/2019 documented as of this encounter (statuses as of 07/12/2022) [address] History of Past illness Narrative* Problem Noted Date Resolved Date Elevated PSA 02/15/2017 01/02/2019 documented as of this encounter (statuses as of 07/15/2022) [address] History of Past illness Narrative* Problem Noted Date Resolved Date Elevated PSA 02/15/2017 01/02/2019 documented as of this encounter (statuses as of 07/25/2022) [address] History of Past illness Narrative* Problem Noted Date Resolved Date Elevated PSA 02/15/2017 01/02/2019 documented as of this encounter (statuses as of 07/29/2022) [place] [address] History of Past illness Narrative* Problem Noted Date Resolved Date Elevated PSA 02/15/2017 01/02/2019 documented as of this encounter (statuses as of 08/02/2022) [address] History of Past illness Narrative* Problem Noted Date Resolved Date Elevated PSA 02/15/2017 01/02/2019 documented as of this encounter (statuses as of 08/05/2022) [address] History of Past illness Narrative* Problem Noted Date Resolved Date Elevated PSA 02/15/2017 01/02/2019 documented as of this encounter (statuses as of 08/19/2022) [address] History of Past illness Narrative* Problem Noted Date Resolved Date Elevated PSA 02/15/2017 01/02/2019 documented as of this encounter (statuses as of 08/19/2022) [address] History of Past illness Narrative* Problem Noted Date Resolved Date Elevated PSA 02/15/2017 01/02/2019 documented as of this encounter (statuses as of 08/25/2022) [address] History of Past illness Narrative* Problem Noted Date Resolved Date Elevated PSA 02/15/2017 01/02/2019 documented as of this encounter (statuses as of 08/26/2022) [address] History of Past illness Narrative* Problem Noted Date Resolved Date Elevated PSA 02/15/2017 01/02/2019 documented as of this encounter (statuses as of 09/01/2022) [address]11[address]2017 History of Past illness Narrative* Problem Noted Date Resolved Date Elevated PSA 02/15/2017 01/02/2019 documented as of this encounter (statuses as of 09/08/2022) [address]2017 History of Past illness Narrative* Problem Noted Date Resolved Date Elevated PSA 02/15/2017 01/02/2019 documented as of this encounter (statuses as of 09/08/2022) [address]2017 History of Past illness Narrative* Problem Noted Date Resolved Date Elevated PSA 02/15/2017 01/02/2019 documented as of this encounter (statuses as of 09/12/2022) [address]2017 History of Past illness Narrative* Problem Noted Date Resolved Date Elevated PSA 02/15/2017 01/02/2019 documented as of this encounter (statuses as of 09/21/2022) [address]2017 History of Past illness Narrative* Problem Noted Date Resolved Date Elevated PSA 02/15/2017 01/02/2019 documented as of this encounter (statuses as of 10/07/2022) [address]2017 History of Past illness Narrative* Problem Noted Date Resolved Date Elevated PSA 02/15/2017 01/02/2019 documented as of this encounter (statuses as of 10/11/2022) [address]2017 History of Past illness Narrative* Problem Noted Date Resolved Date Elevated PSA 02/15/2017 01/02/2019 documented as of this encounter (statuses as of 10/24/2022) [address]2017 History of Past illness Narrative* Problem Noted Date Resolved Date Elevated PSA 02/15/2017 01/02/2019 documented as of this encounter (statuses as of 10/25/2022) [address]2017 History of Past illness Narrative* Problem Noted Date Resolved Date Elevated PSA 02/15/2017 01/02/2019 documented as of this encounter (statuses as of 10/26/2022) [address]2017 History of Past illness Narrative* Problem Noted Date Resolved Date Elevated PSA 02/15/2017 01/02/2019 documented as of this encounter (statuses as of 11/10/2022) [address]2017 History of Past illness Narrative* Problem Noted Date Diagnosed Date Resolved Date Elevated PSA 02/15/2017 01/02/2019 documented as of this encounter (statuses as of 11/14/2022) [address]2017 History of Past illness Narrative* Problem Noted Date Diagnosed Date Resolved Date Elevated PSA 02/15/2017 01/02/2019 documented as of this encounter (statuses as of 11/16/2022) [address]2017 History of Past illness Narrative* Problem Noted Date Diagnosed Date Resolved Date Elevated PSA 02/15/2017 01/02/2019 documented as of this encounter (statuses as of 12/01/2022) [address]2017 History of Past illness Narrative* Problem Noted Date Diagnosed Date Resolved Date Elevated PSA 02/15/2017 01/02/2019 documented as of this encounter (statuses as of 12/05/2022) [address]2017 History of Past illness Narrative* Problem Noted Date Diagnosed Date Resolved Date Elevated PSA 02/15/2017 01/02/2019 documented as of this encounter (statuses as of 12/11/2022) [address]2017 History of Past illness Narrative* Problem Noted Date Diagnosed Date Resolved Date Elevated PSA 02/15/2017 01/02/2019 documented as of this encounter (statuses as of 12/15/2022) [address]2017 History of Past illness Narrative* Problem Noted Date Diagnosed Date Resolved Date Elevated PSA 02/15/2017 01/02/2019 documented as of this encounter (statuses as of 12/17/2022) [address]2017 History of Past illness Narrative* Problem Noted Date Diagnosed Date Resolved Date Elevated PSA 02/15/2017 01/02/2019 documented as of this encounter (statuses as of 01/03/2023) [address]2017 History of Past illness Narrative* Problem Noted Date Diagnosed Date Resolved Date Elevated PSA 02/15/2017 01/02/2019 documented as of this encounter (statuses as of 01/12/2023) [address]2017 History of Past illness Narrative* Problem Noted Date Diagnosed Date Resolved Date Elevated PSA 02/15/2017 01/02/2019 documented as of this encounter (statuses as of 01/13/2023) [address]2017 History of Past illness Narrative* Problem Noted Date Diagnosed Date Resolved Date Elevated PSA 02/15/2017 01/02/2019 documented as of this encounter (statuses as of 01/17/2023) [address]2017 History of Past illness Narrative* Problem Noted Date Diagnosed Date Resolved Date Elevated PSA 02/15/2017 01/02/2019 documented as of this encounter (statuses as of 01/18/2023) [address]2017 History of Past illness Narrative* Problem Noted Date Diagnosed Date Resolved Date Elevated PSA 02/15/2017 01/02/2019 documented as of this encounter (statuses as of 03/12/2023) [facility] Diagnosis Cough- Primary URI, acute Acute upper respiratory infections of unspecified site documented [facility] this encounter [facility] Diagnosis Fatigue, unspecified type- Primary documented [facility] this [facility] Diagnosis Prostate cancer (HCC)- Primary Malignant neoplasm of prostate Bone metastases (HCC) Secondary malignant neoplasm of bone and bone marrow documented [facility] this [facility] Diagnosis Prostate cancer (HCC)- Primary Malignant neoplasm of prostate documented [facility] this [facility] Diagnosis Essential hypertension, benign- Primary Gastroesophageal reflux disease with esophagitis without hemorrhage Mixed hyperlipidemia Vitamin D deficiency Unspecified vitamin D deficiency Bone metastases (HCC) Secondary malignant neoplasm of bone and bone marrow Prostate cancer (HCC) Malignant neoplasm of prostate Nonrheumatic aortic valve stenosis Aortic valve disorders Mass of soft tissue of hand Medication management Encounter for long-term (current) use of other medications documented [facility] Diagnosis Prostate cancer (HCC)- Primary Malignant neoplasm of prostate documented [facility] this [facility] Diagnosis Prostate cancer (HCC) Malignant neoplasm of prostate documented in this [facility] Diagnosis Prostate cancer (HCC) Malignant neoplasm of prostate [facility] Diagnosis Prostate cancer (HCC)- Primary Malignant neoplasm of prostate Bone metastases (HCC) Secondary malignant neoplasm of bone and bone marrow documented in this [facility] Diagnosis Bone metastases (HCC)- Primary Secondary malignant neoplasm of bone and bone marrow Prostate cancer (HCC) Malignant neoplasm of prostate documented [facility] this [facility] Diagnosis Gross hematuria- Primary Left flank pain Abdominal pain, unspecified site ZAHEER (acute kidney injury) (HCC) Acute kidney failure, unspecified documented [facility] this [facility] Diagnosis Prostate cancer (HCC)- Primary Malignant neoplasm of prostate Elevated PSA Elevated prostate specific antigen (PSA) Bone metastases (HCC) Secondary malignant neoplasm of bone and bone marrow documented [facility] this [facility] Diagnosis Prostate cancer (HCC)- Primary Malignant neoplasm of prostate documented [facility] this [facility] Diagnosis Prostate cancer (HCC) Malignant neoplasm of prostate documented in this [facility] Diagnosis Prostate cancer (HCC)- Primary Malignant neoplasm of prostate Bone metastases (HCC) Secondary malignant neoplasm of bone and bone marrow documented in this [facility] Diagnosis Bone metastases (HCC)- Primary Secondary malignant neoplasm of bone and bone marrow Prostate cancer (HCC) Malignant neoplasm of prostate [facility] Prostate cancer (HCC)- Primary Malignant neoplasm of prostate Bone metastases (HCC) Secondary malignant neoplasm of bone and bone marrow [facility] Diagnosis Essential hypertension, benign- Primary [facility] Diagnosis Bone metastases (HCC)- Primary Secondary malignant neoplasm of bone and bone marrow Prostate cancer (HCC) Malignant neoplasm of prostate [facility]* Diagnosis Medicare annual wellness visit, subsequent- Primary Routine general medical examination at a health care facility Essential hypertension, benign Mixed hyperlipidemia Gastroesophageal reflux disease with esophagitis without hemorrhage Nonrheumatic aortic valve stenosis Aortic valve disorders Vitamin D deficiency Unspecified vitamin D deficiency Lung nodule seen on imaging study Solitary pulmonary nodule Bone metastases (HCC) Secondary malignant neoplasm of bone and bone marrow Prostate cancer (HCC) Malignant neoplasm of prostate Lung nodules Other nonspecific abnormal finding of lung field Elevated PSA Elevated prostate specific antigen (PSA) Microscopic hematuria Living will in place Advance directive discussed with patient Other specified counseling [facility] Diagnosis Prostate cancer (HCC)- Primary Malignant neoplasm of prostate Bone metastases (HCC) Secondary malignant neoplasm of bone and bone marrow [facility] Diagnosis Kidney stone- Primary Calculus of kidney Prostate cancer (HCC) Malignant neoplasm of prostate [facility] Diagnosis Bone metastases (HCC)- Primary Secondary malignant neoplasm of bone and bone marrow Prostate cancer (HCC) Malignant neoplasm of prostate [facility] Diagnosis Prostate cancer (HCC)- Primary Malignant neoplasm of prostate [facility] Diagnosis Prostate cancer (HCC)- Primary Malignant neoplasm of prostate [facility] Diagnosis Prostate cancer (HCC)- Primary Malignant neoplasm of prostate [facility]* Diagnosis Peripheral edema- Primary Edema Nonrheumatic aortic valve stenosis Aortic valve disorders Severe aortic stenosis Aortic valve disorders [facility] Diagnosis Peripheral edema- Primary Edema Nonrheumatic aortic valve stenosis Aortic valve disorders Vitamin D deficiency Unspecified vitamin D deficiency Left leg pain Pain in limb [facility] Diagnosis Prostate cancer (HCC)- Primary Malignant neoplasm of prostate Bone metastases (HCC) Secondary malignant neoplasm of bone and bone marrow [facility] Diagnosis Iron deficiency anemia due to chronic blood loss- Primary Iron deficiency anemia secondary to blood loss (chronic) Prostate cancer (HCC) Malignant neoplasm of prostate Neoplasm of prostate, distant metastasis staging category M1b: metastasis to bone (HCC) Malignant neoplasm of prostate Bilateral lower extremity edema Edema Nonrheumatic aortic valve stenosis Aortic valve disorders [facility] Diagnosis Prostate cancer (HCC)- Primary Malignant neoplasm of prostate [facility]* Diagnosis Lung nodules- Primary Other nonspecific abnormal finding of lung field [facility] Diagnosis Essential hypertension, benign- Primary Bilateral leg edema Edema Hypokalemia Hypopotassemia documented [facility] Diagnosis Prostate cancer (HCC)- Primary Malignant neoplasm of prostate [facility]* Diagnosis Lung nodule seen on imaging study Solitary pulmonary nodule [facility] Diagnosis Essential hypertension, benign [facility]* Diagnosis URI, acute- Primary Acute upper respiratory infections of unspecified site Acute cough SOB (shortness of breath) Shortness of breath Numbness and tingling in both hands 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 [facility] Diagnosis Acute cough- Primary Sinobronchitis Unspecified sinusitis (chronic) [facility] Diagnosis 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 Prostate cancer (HCC) Malignant neoplasm of prostate [facility]* Diagnosis Essential hypertension, benign- Primary Mixed hyperlipidemia Urinary frequency Prostate cancer (HCC) Malignant neoplasm of prostate Gastroesophageal reflux disease with esophagitis without hemorrhage Medication management Encounter for long-term (current) use of other medications Vitamin D deficiency Unspecified vitamin D deficiency Nonrheumatic aortic valve stenosis Aortic valve disorders PVD (peripheral vascular disease) (HCC) Peripheral vascular disease, unspecified Other acute osteomyelitis of left foot (HCC) [facility] Diagnosis Aortic stenosis- Primary Aortic valve disorders Nonrheumatic aortic valve stenosis- Primary Aortic stenosis Aortic valve disorders documented in this encounter [facility] note* Diagnosis Aortic stenosis- Primary Aortic valve disorders Aortic stenosis Aortic valve disorders Aortic stenosis Aortic valve disorders documented in this encounter [facility] note* Diagnosis Aortic stenosis- Primary Aortic valve disorders Rheumatic aortic stenosis Aortic stenosis Aortic valve disorders documented in this encounter [facility] note* Diagnosis Radiation cystitis- Primary Irradiation cystitis Prostate cancer (HCC) Malignant neoplasm of prostate Urinary incontinence, unspecified type History of kidney stones Personal history of urinary calculi Gross hematuria [facility] Diagnosis Essential hypertension, benign documented in this encounter [facility] Diagnosis Recurrent UTI (urinary tract infection)- Primary Urinary tract infection, site not specified 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* Diagnosis Gross hematuria- Primary Clot retention of urine Other specified retention of urine History of prostate cancer Personal history of malignant neoplasm of prostate [facility] Diagnosis Prostate cancer (HCC)- Primary Malignant neoplasm of prostate Gross hematuria Radiation cystitis Irradiation cystitis False passage of urethra Urethral false passage Clot retention of urine Other specified retention of urine documented in this encounter 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 Diagnosis Radiation cystitis- Primary Irradiation cystitis [facility] Diagnosis Lung nodules Other nonspecific abnormal finding of lung field documented in this encounter 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 Diagnosis Dysuria- Primary documented in this encounter [facility] for referral (narrative)* Outpatient Procedure (Routine) - Pending Review Specialty Diagnoses / Procedures Referred By Contac t Referred To [facility] Diagnoses Peripheral edema Left leg pain Procedures US LEG VEIN DVT BISHOP VAS LAB DUP-SCAN XTR VEINS COMPLETE BILATERAL STUDY Carmen England PA-C [address] [place] [address] [facility] [address] [place] [address] Referral ID Status Reason Start Date Expiration Date Visits Requested Visits Authorized [id number] Pending Review Auto-Generat ed Referral 06/07/2022 06/07/2023 1 1 * Diagnostic Procedure Only (Routine) - Closed Specialty Diagnoses / Procedures Referred By Contac t Referred To Contact XR IMAGING Diagnoses Peripheral edema Left leg pain Procedures XR TIBIA FIBULA 2V AP/LAT LEFT RADIOLOGIC EXAMINATION TIBIA & FIBULA 2 VIEWS Carmen England PA-C [address] [place] [address] Xr Imaging Referral ID Status Reason Start Date Expiration Date V isits Requested Visits Authorized [id number] Closed Auto-Generate d Referral 06/07/2022 07/07/2023 1 1 [facility] for referral (narrative)* Diagnostic Procedure Only (Urgent) - Closed Specialty Diagnoses / Procedures Referred By Contac t Referred To Contact XR IMAGING Diagnoses Numbness and tingling in both hands Malignant neoplasm metastatic to bone (HCC) Procedures XR CERV OTHER 4V AP/LAT/OBL RADEX SPINE CERVICAL 4 OR 5 VIEWS Jose Jane MD [address] [place] [address] Xr Imaging Referral ID Status Reason Start Date Expiration Date V isits Requested Visits Authorized [id number] Closed Auto-Generate d Referral 08/18/2022 09/17/2023 1 1 [facility] Summary Purpose Family History No Family History Records FoundNo Family History Records FoundNo Family History Records FoundNo Family History Records FoundNo Family History Records Found Advance Directives No Advanced Directives Records FoundDocuments on File Type Date Recorded Patient Surveillance Officer Expl anation Advance Directive(s) 03/23/2020 12:20 PM Advance Directive(s) 03/10/2009 5:13 AM Documents on File Type Date Recorded Patient Surveillance Officer Expl anation Advance Directive(s) 03/23/2020 12:20 PM Advance Directive(s) 03/10/2009 5:13 AM Documents on File Type Date Recorded Patient Surveillance Officer Expl anation Advance Directive(s) 03/10/2009 5:13 AM Documents on File Type Date Recorded Patient Surveillance Officer Expl anation Advance Directive(s) 03/10/2009 5:13 AM Documents on File Type Date Recorded Patient Surveillance Officer Expl anation Advance Directive(s) 05/31/2022 4:21 PM Documents on File Type Date Recorded Patient Surveillance Officer Expl anation Advance Directive(s) 05/31/2022 4:21 PM Latest Code Status on File Code Status Date Activated Date Inactivated Comments Full Code 09/26/2022 5:50 AM 09/27/2022 4:28 PM Reason for Referral Specialty Diagnoses / Procedures Referred By Contac t Referred To Contact Orthopedics Diagnoses Mass of soft tissue of hand Procedures CONSULT TO ORTHOPAEDICS OFFICE/OUTPATIENT [facility] MDM 60-74 MINUTES Darrin Tolentino MD [address] [place] [address] Referral ID Status Reason Start Date Expiration Date Visits Requested Visits Authorized [id number] Authorized PCP Requested Referral 08/12/2021 08/12/2022 1 1 Specialty Diagnoses / Procedures Referred By Contac t Referred To Contact CT IMAGING Diagnoses Lung nodule seen on imaging study Lung nodules Procedures CT CHEST WO IVCON DIAGNOSTIC COMPUTED TOMOGRAPHY THORAX W/O CNTRST Darrin Tolentino MD [address] [place] [address] Ct Imaging Referral ID Status Reason Start Date Expiration Date Visits Requested Visits Authorized [id number] Pending Review Auto-Generat ed Referral 03/09/2022 04/08/2023 1 1 Specialty Diagnoses / Procedures Referred By Contac t Referred To Contact Cardiology Diagnoses Nonrheumatic aortic valve stenosis Severe aortic stenosis Procedures CONSULT TO CARDIOLOGY OFFICE/OUTPATIENT [facility] 60-74 MINUTES Carmen England PA-C [address] [place] [address] Referral ID Status Reason Start Date Expiration Date Visits Requested Visits Authorized [id number] Authorized PCP Requested Referral 05/31/2022 05/31/2023 1 1 Specialty Diagnoses / Procedures Referred By Contac t Referred To Contact CT IMAGING Diagnoses Lung nodules Procedures CT CHEST WO IVCON DIAGNOSTIC COMPUTED TOMOGRAPHY THORAX W/O Darrin Stephen MD [address] [place] [address] Ct Imaging Referral ID Status Reason Start Date Expiration Date Visits Requested Visits Authorized [id number] Authorized Auto-Generat ed Referral 07/05/2022 08/04/2023 1 1 Specialty Diagnoses / Procedures Referred By Contac t Referred To Contact Radiology Diagnoses Aortic stenosis Procedures CTA Angiogram TAVR Otoniel Hudson MD [address] [place] [address] Referral ID Status Reason Start Date Expiration Date Visits Re quested Visits Authorized [id number] Closed 09/12/2022 03/11/2023 1 1 Specialty Diagnoses / Procedures Referred By Contac t Referred To Contact CT IMAGING Diagnoses Lung nodules Procedures CT CHEST WO IVCON DIAGNOSTIC COMPUTED TOMOGRAPHY THORAX W/O Darrin Stephen MD [address] [place] [address] [place] [id number] Referral ID Status Reason Start Date Expiration Date V isits Requested Visits Authorized [id number] Closed Auto-Generate d Referral 07/05/2022 08/04/2023 1 1 Medications Administered Section Inactive Administered Medications - up to 3 most recent administrations Medication Order MAR Action Action Date Dose Rate Site leuprolide 22.5 mg injection (LUPRON DEPOT) 22.5 mg, INTRAMUSCULAR, ONCE, 1 dose, On Mon09/07/21 at 0930, Hazardous Chemotherapy Drug: Use appropriate PPE. Given 09/07/2021 9:25 AM EDT 22.5 mg Buttocks, Left Inactive Administered Medications - up to 3 most recent administrations Medication Order MAR Action Action Date Dose Rate Site leuprolide 22.5 mg injection (LUPRON DEPOT) 22.5 mg, INTRAMUSCULAR, ONCE, 1 dose, On Mon11/30/21 at 0930, Hazardous Chemotherapy Drug: Use appropriate PPE. Given 11/30/2021 9:37 AM EDT 22.5 mg Buttocks, Right Inactive Administered Medications - up to 3 most recent administrations Medication Order MAR Action Action Date Dose Rate Site leuprolide 22.5 mg injection (LUPRON DEPOT) 22.5 mg, INTRAMUSCULAR, ONCE, 1 dose, On Mon02/22/22 at 0900, Hazardous Chemotherapy Drug: Use appropriate PPE. Given 02/22/2022 9:09 AM EDT 22.5 mg Buttocks, Left Inactive Administered Medications - up to 3 most recent administrations Medication Order MAR Action Action Date Dose Rate Site leuprolide 22.5 mg injection (LUPRON DEPOT) 22.5 mg, INTRAMUSCULAR, ONCE, 1 dose, On Mon05/17/22 at 0830, Hazardous Chemotherapy Drug: Use appropriate PPE. Given 05/17/2022 8:43 AM EST 22.5 mg Buttocks, Right Inactive Administered Medications - up to 3 most recent administrations Medication Order MAR Action Action Date Dose Rate Site leuprolide 22.5 mg injection (LUPRON DEPOT) 22.5 mg, INTRAMUSCULAR, ONCE, 1 dose, On Mon09/08/22 at 0830, Hazardous Chemotherapy Drug: Use appropriate PPE. Given 09/08/2022 8:40 AM EDT 22.5 mg Buttocks, Left Inactive Administered Medications - up to 3 most recent administrations Medication Order MAR Action Action Date Dose Rate Site leuprolide 22.5 mg injection (LUPRON DEPOT) 22.5 mg, INTRAMUSCULAR, ONCE, 1 dose, On Mon12/01/22 at 0900, Hazardous Chemotherapy Drug: Use appropriate PPE. Given 12/01/2022 8:54 AM EDT 22.5 mg Buttocks, Right Inactive Administered Medications - up to 3 most recent administrations Medication Order MAR Action Action Date Dose Rate Site ciprofloxacin HCl 500 mg tab(s) (CIPRO) 500 mg, ORAL, ONCE (UP TO 30 DAYS AMB), 1 dose, On Mon02/22/23 at 1500, One tab prior to procedure Administer 2 hours before or 4 hours after medications containing calcium, magnesium, aluminum, iron, or zinc (including antacids and sucralfate), and sevelamer. May be administered without regard to meals. Tube feedings should be held 1 hour before and 1 hour after administration., Antimicrobial indication: Empiric Given 02/22/2023 2:30 PM EDT 500 mg lidocaine urojet 2 % 6 mL topical gel (GLYDO) 6 mL, URETHRAL, ONCE (UP TO 30 DAYS AMB), 1 dose, On Mon02/22/23 at 1500, Prior to Procedure Given by LIP 02/22/2023 3:00 PM EDT 6 mL Inactive Administered Medications - up to 3 most recent administrations Medication Order MAR Action Action Date Dose Rate Site leuprolide 22.5 mg injection (LUPRON DEPOT) 22.5 mg, INTRAMUSCULAR, ONCE, 1 dose, On Ivet 02/23/23 at 0900, Hazardous Chemotherapy Drug: Use appropriate PPE. Given 02/23/2023 8:55 AM EDT 22.5 mg Buttocks, Left Additional Source Comments (unrecognized sect ion and content) No Status Records FoundNo Status Records FoundNo Status Records FoundNo Status Records FoundNo Status Records Found INFORMATION SOURCE (unrecogn ized section and content) DATE CREATED AUTHOR AUTHOR'S ORGANIZ ATION 11/19/2022 [facility] DATE CREATED AUTHOR AUTHOR'S ORGANIZ ATION 03/02/2023 [facility] DATE CREATED AUTHOR AUTHOR'S ORGANIZ ATION 03/03/2023 [facility] DATE CREATED AUTHOR AUTHOR'S ORGANIZ ATION 04/26/2023 [facility] Source Comments (unrecognize d section and content) In the event this informatio n is protected by the Federal Confidentiality of Alcohol and Drug Abuse Patient Records regulations: The Federal rules restrict any use of the information to criminally investigate or prosecute any alcohol or drug abuse patient.[facility] the event this information is protected by the Federal Confidentiality of Alcohol and Drug Abuse Patient Records regulations: The Federal rules restrict any use of the information to criminally investigate or prosecute any alcohol or drug abuse patient.[facility] HospitalIn the event this information is protected by the Federal Confidentiality of Alcohol and Drug Abuse Patient Records regulations: The Federal rules restrict any use of the information to criminally investigate or prosecute any alcohol or drug abuse patient.[facility] HospitalIn the event this information is protected by the Federal Confidentiality of Alcohol and Drug Abuse Patient Records regulations: The Federal rules restrict any use of the information to criminally investigate or prosecute any alcohol or drug abuse patient.[facility] HospitalIn the event this information is protected by the Federal Confidentiality of Alcohol and Drug Abuse Patient Records regulations: The Federal rules restrict any use of the information to criminally investigate or prosecute any alcohol or drug abuse patient.[facility] HospitalIn the event this information is protected by the Federal Confidentiality of Alcohol and Drug Abuse Patient Records regulations: The Federal rules restrict any use of the information to criminally investigate or prosecute any alcohol or drug abuse patient.[facility] HospitalIn the event this information is protected by the Federal Confidentiality of Alcohol and Drug Abuse Patient Records regulations: The Federal rules restrict any use of the information to criminally investigate or prosecute any alcohol or drug abuse patient.[facility] HospitalIn the event this information is protected by the Federal Confidentiality of Alcohol and Drug Abuse Patient Records regulations: The Federal rules restrict any use of the information to criminally investigate or prosecute any alcohol or drug abuse patient.[facility] HospitalIn the event this information is protected by the Federal Confidentiality of Alcohol and Drug Abuse Patient Records regulations: The Federal rules restrict any use of the information to criminally investigate or prosecute any alcohol or drug abuse patient.[facility] HospitalIn the event this information is protected by the Federal Confidentiality of Alcohol and Drug Abuse Patient Records regulations: The Federal rules restrict any use of the information to criminally investigate or prosecute any alcohol or drug abuse patient.[facility] HospitalIn the event this information is protected by the Federal Confidentiality of Alcohol and Drug Abuse Patient Records regulations: The Federal rules restrict any use of the information to criminally investigate or prosecute any alcohol or drug abuse patient.[facility] HospitalIn the event this information is protected by the Federal Confidentiality of Alcohol and Drug Abuse Patient Records regulations: The Federal rules restrict any use of the information to criminally investigate or prosecute any alcohol or drug abuse patient.[facility] HospitalIn the event this information is protected by the Federal Confidentiality of Alcohol and Drug Abuse Patient Records regulations: The Federal rules restrict any use of the information to criminally investigate or prosecute any alcohol or drug abuse patient.[facility] HospitalIn the event this information is protected by the Federal Confidentiality of Alcohol and Drug Abuse Patient Records regulations: The Federal rules restrict any use of the information to criminally investigate or prosecute any alcohol or drug abuse patient.[facility] HospitalIn the event this information is protected by the Federal Confidentiality of Alcohol and Drug Abuse Patient Records regulations: The Federal rules restrict any use of the information to criminally investigate or prosecute any alcohol or drug abuse patient.[facility] HospitalIn the event this information is protected by the Federal Confidentiality of Alcohol and Drug Abuse Patient Records regulations: The Federal rules restrict any use of the information to criminally investigate or prosecute any alcohol or drug abuse patient.[facility] HospitalIn the event this information is protected by the Federal Confidentiality of Alcohol and Drug Abuse Patient Records regulations: The Federal rules restrict any use of the information to criminally investigate or prosecute any alcohol or drug abuse patient.[facility] HospitalIn the event this information is protected by the Federal Confidentiality of Alcohol and Drug Abuse Patient Records regulations: The Federal rules restrict any use of the information to criminally investigate or prosecute any alcohol or drug abuse patient.[facility] HospitalIn the event this information is protected by the Federal Confidentiality of Alcohol and Drug Abuse Patient Records regulations: The Federal rules restrict any use of the information to criminally investigate or prosecute any alcohol or drug abuse patient.[facility] HospitalIn the event this information is protected by the Federal Confidentiality of Alcohol and Drug Abuse Patient Records regulations: The Federal rules restrict any use of the information to criminally investigate or prosecute any alcohol or drug abuse patient.[facility] HospitalIn the event this information is protected by the Federal Confidentiality of Alcohol and Drug Abuse Patient Records regulations: The Federal rules restrict any use of the information to criminally investigate or prosecute any alcohol or drug abuse patient.[facility] HospitalIn the event this information is protected by the Federal Confidentiality of Alcohol and Drug Abuse Patient Records regulations: The Federal rules restrict any use of the information to criminally investigate or prosecute any alcohol or drug abuse patient.[facility] HospitalIn the event this information is protected by the Federal Confidentiality of Alcohol and Drug Abuse Patient Records regulations: The Federal rules restrict any use of the information to criminally investigate or prosecute any alcohol or drug abuse patient.[facility] HospitalIn the event this information is protected by the Federal Confidentiality of Alcohol and Drug Abuse Patient Records regulations: The Federal rules restrict any use of the information to criminally investigate or prosecute any alcohol or drug abuse patient.[facility] HospitalIn the event this information is protected by the Federal Confidentiality of Alcohol and Drug Abuse Patient Records regulations: The Federal rules restrict any use of the information to criminally investigate or prosecute any alcohol or drug abuse patient.[facility] HospitalIn the event this information is protected by the Federal Confidentiality of Alcohol and Drug Abuse Patient Records regulations: The Federal rules restrict any use of the information to criminally investigate or prosecute any alcohol or drug abuse patient.[facility] HospitalIn the event this information is protected by the Federal Confidentiality of Alcohol and Drug Abuse Patient Records regulations: The Federal rules restrict any use of the information to criminally investigate or prosecute any alcohol or drug abuse patient.[facility] HospitalIn the event this information is protected by the Federal Confidentiality of Alcohol and Drug Abuse Patient Records regulations: The Federal rules restrict any use of the information to criminally investigate or prosecute any alcohol or drug abuse patient.[facility] HospitalIn the event this information is protected by the Federal Confidentiality of Alcohol and Drug Abuse Patient Records regulations: The Federal rules restrict any use of the information to criminally investigate or prosecute any alcohol or drug abuse patient.[facility] HospitalIn the event this information is protected by the Federal Confidentiality of Alcohol and Drug Abuse Patient Records regulations: The Federal rules restrict any use of the information to criminally investigate or prosecute any alcohol or drug abuse patient.[facility] HospitalIn the event this information is protected by the Federal Confidentiality of Alcohol and Drug Abuse Patient Records regulations: The Federal rules restrict any use of the information to criminally investigate or prosecute any alcohol or drug abuse patient.[facility] HospitalIn the event this information is protected by the Federal Confidentiality of Alcohol and Drug Abuse Patient Records regulations: The Federal rules restrict any use of the information to criminally investigate or prosecute any alcohol or drug abuse patient.[facility] HospitalIn the event this information is protected by the Federal Confidentiality of Alcohol and Drug Abuse Patient Records regulations: The Federal rules restrict any use of the information to criminally investigate or prosecute any alcohol or drug abuse patient.[facility] HospitalIn the event this information is protected by the Federal Confidentiality of Alcohol and Drug Abuse Patient Records regulations: The Federal rules restrict any use of the information to criminally investigate or prosecute any alcohol or drug abuse patient.[facility] HospitalIn the event this information is protected by the Federal Confidentiality of Alcohol and Drug Abuse Patient Records regulations: The Federal rules restrict any use of the information to criminally investigate or prosecute any alcohol or drug abuse patient.[facility] HospitalIn the event this information is protected by the Federal Confidentiality of Alcohol and Drug Abuse Patient Records regulations: The Federal rules restrict any use of the information to criminally investigate or prosecute any alcohol or drug abuse patient.[facility] HospitalIn the event this information is protected by the Federal Confidentiality of Alcohol and Drug Abuse Patient Records regulations: The Federal rules restrict any use of the information to criminally investigate or prosecute any alcohol or drug abuse patient.[facility] HospitalIn the event this information is protected by the Federal Confidentiality of Alcohol and Drug Abuse Patient Records regulations: The Federal rules restrict any use of the information to criminally investigate or prosecute any alcohol or drug abuse patient.[facility] HospitalIn the event this information is protected by the Federal Confidentiality of Alcohol and Drug Abuse Patient Records regulations: The Federal rules restrict any use of the information to criminally investigate or prosecute any alcohol or drug abuse patient.[facility] HospitalIn the event this information is protected by the Federal Confidentiality of Alcohol and Drug Abuse Patient Records regulations: The Federal rules restrict any use of the information to criminally investigate or prosecute any alcohol or drug abuse patient.[facility] HospitalIn the event this information is protected by the Federal Confidentiality of Alcohol and Drug Abuse Patient Records regulations: The Federal rules restrict any use of the information to criminally investigate or prosecute any alcohol or drug abuse patient.[facility] HospitalIn the event this information is protected by the Federal Confidentiality of Alcohol and Drug Abuse Patient Records regulations: The Federal rules restrict any use of the information to criminally investigate or prosecute any alcohol or drug abuse patient.[facility] HospitalIn the event this information is protected by the Federal Confidentiality of Alcohol and Drug Abuse Patient Records regulations: The Federal rules restrict any use of the information to criminally investigate or prosecute any alcohol or drug abuse patient.[facility] HospitalIn the event this information is protected by the Federal Confidentiality of Alcohol and Drug Abuse Patient Records regulations: The Federal rules restrict any use of the information to criminally investigate or prosecute any alcohol or drug abuse patient.[facility] HospitalIn the event this information is protected by the Federal Confidentiality of Alcohol and Drug Abuse Patient Records regulations: The Federal rules restrict any use of the information to criminally investigate or prosecute any alcohol or drug abuse patient.[facility] HospitalIn the event this information is protected by the Federal Confidentiality of Alcohol and Drug Abuse Patient Records regulations: The Federal rules restrict any use of the information to criminally investigate or prosecute any alcohol or drug abuse patient.[facility] HospitalIn the event this information is protected by the Federal Confidentiality of Alcohol and Drug Abuse Patient Records regulations: The Federal rules restrict any use of the information to criminally investigate or prosecute any alcohol or drug abuse patient.[facility] HospitalIn the event this information is protected by the Federal Confidentiality of Alcohol and Drug Abuse Patient Records regulations: The Federal rules restrict any use of the information to criminally investigate or prosecute any alcohol or drug abuse patient.[facility] HospitalIn the event this information is protected by the Federal Confidentiality of Alcohol and Drug Abuse Patient Records regulations: The Federal rules restrict any use of the information to criminally investigate or prosecute any alcohol or drug abuse patient.[facility] HospitalIn the event this information is protected by the Federal Confidentiality of Alcohol and Drug Abuse Patient Records regulations: The Federal rules restrict any use of the information to criminally investigate or prosecute any alcohol or drug abuse patient.[facility] HospitalIn the event this information is protected by the Federal Confidentiality of Alcohol and Drug Abuse Patient Records regulations: The Federal rules restrict any use of the information to criminally investigate or prosecute any alcohol or drug abuse patient.[facility] HospitalIn the event this information is protected by the Federal Confidentiality of Alcohol and Drug Abuse Patient Records regulations: The Federal rules restrict any use of the information to criminally investigate or prosecute any alcohol or drug abuse patient.[facility] HospitalIn the event this information is protected by the Federal Confidentiality of Alcohol and Drug Abuse Patient Records regulations: The Federal rules restrict any use of the information to criminally investigate or prosecute any alcohol or drug abuse patient.[facility] HospitalIn the event this information is protected by the Federal Confidentiality of Alcohol and Drug Abuse Patient Records regulations: The Federal rules restrict any use of the information to criminally investigate or prosecute any alcohol or drug abuse patient.[facility] HospitalIn the event this information is protected by the Federal Confidentiality of Alcohol and Drug Abuse Patient Records regulations: The Federal rules restrict any use of the information to criminally investigate or prosecute any alcohol or drug abuse patient.[facility] HospitalIn the event this information is protected by the Federal Confidentiality of Alcohol and Drug Abuse Patient Records regulations: The Federal rules restrict any use of the information to criminally investigate or prosecute any alcohol or drug abuse patient.[facility] HospitalIn the event this information is protected by the Federal Confidentiality of Alcohol and Drug Abuse Patient Records regulations: The Federal rules restrict any use of the information to criminally investigate or prosecute any alcohol or drug abuse patient.[facility] HospitalIn the event this information is protected by the Federal Confidentiality of Alcohol and Drug Abuse Patient Records regulations: The Federal rules restrict any use of the information to criminally investigate or prosecute any alcohol or drug abuse patient.[facility] HospitalIn the event this information is protected by the Federal Confidentiality of Alcohol and Drug Abuse Patient Records regulations: The Federal rules restrict any use of the information to criminally investigate or prosecute any alcohol or drug abuse patient.[facility] HospitalIn the event this information is protected by the Federal Confidentiality of Alcohol and Drug Abuse Patient Records regulations: The Federal rules restrict any use of the information to criminally investigate or prosecute any alcohol or drug abuse patient.[facility] HospitalIn the event this information is protected by the Federal Confidentiality of Alcohol and Drug Abuse Patient Records regulations: The Federal rules restrict any use of the information to criminally investigate or prosecute any alcohol or drug abuse patient.[facility] HospitalIn the event this information is protected by the Federal Confidentiality of Alcohol and Drug Abuse Patient Records regulations: The Federal rules restrict any use of the information to criminally investigate or prosecute any alcohol or drug abuse patient.[facility] HospitalIn the event this information is protected by the Federal Confidentiality of Alcohol and Drug Abuse Patient Records regulations: The Federal rules restrict any use of the information to criminally investigate or prosecute any alcohol or drug abuse patient.[facility] HospitalIn the event this information is protected by the Federal Confidentiality of Alcohol and Drug Abuse Patient Records regulations: The Federal rules restrict any use of the information to criminally investigate or prosecute any alcohol or drug abuse patient.[facility] HospitalIn the event this information is protected by the Federal Confidentiality of Alcohol and Drug Abuse Patient Records regulations: The Federal rules restrict any use of the information to criminally investigate or prosecute any alcohol or drug abuse patient.[facility] HospitalIn the event this information is protected by the Federal Confidentiality of Alcohol and Drug Abuse Patient Records regulations: The Federal rules restrict any use of the information to criminally investigate or prosecute any alcohol or drug abuse patient.[facility] HospitalIn the event this information is protected by the Federal Confidentiality of Alcohol and Drug Abuse Patient Records regulations: The Federal rules restrict any use of the information to criminally investigate or prosecute any alcohol or drug abuse patient.[facility] HospitalIn the event this information is protected by the Federal Confidentiality of Alcohol and Drug Abuse Patient Records regulations: The Federal rules restrict any use of the information to criminally investigate or prosecute any alcohol or drug abuse patient.[facility] HospitalIn the event this information is protected by the Federal Confidentiality of Alcohol and Drug Abuse Patient Records regulations: The Federal rules restrict any use of the information to criminally investigate or prosecute any alcohol or drug abuse patient.[facility] HospitalIn the event this information is protected by the Federal Confidentiality of Alcohol and Drug Abuse Patient Records regulations: The Federal rules restrict any use of the information to criminally investigate or prosecute any alcohol or drug abuse patient.[facility] HospitalIn the event this information is protected by the Federal Confidentiality of Alcohol and Drug Abuse Patient Records regulations: The Federal rules restrict any use of the information to criminally investigate or prosecute any alcohol or drug abuse patient.[facility] HospitalIn the event this information is protected by the Federal Confidentiality of Alcohol and Drug Abuse Patient Records regulations: The Federal rules restrict any use of the information to criminally investigate or prosecute any alcohol or drug abuse patient.[facility] HospitalIn the event this information is protected by the Federal Confidentiality of Alcohol and Drug Abuse Patient Records regulations: The Federal rules restrict any use of the information to criminally investigate or prosecute any alcohol or drug abuse patient.[facility] HospitalIn the event this information is protected by the Federal Confidentiality of Alcohol and Drug Abuse Patient Records regulations: The Federal rules restrict any use of the information to criminally investigate or prosecute any alcohol or drug abuse patient.[facility] HospitalIn the event this information is protected by the Federal Confidentiality of Alcohol and Drug Abuse Patient Records regulations: The Federal rules restrict any use of the information to criminally investigate or prosecute any alcohol or drug abuse patient.[facility] HospitalIn the event this information is protected by the Federal Confidentiality of Alcohol and Drug Abuse Patient Records regulations: The Federal rules restrict any use of the information to criminally investigate or prosecute any alcohol or drug abuse patient.[facility] HospitalIn the event this information is protected by the Federal Confidentiality of Alcohol and Drug Abuse Patient Records regulations: The Federal rules restrict any use of the information to criminally investigate or prosecute any alcohol or drug abuse patient.[facility] HospitalIn the event this information is protected by the Federal Confidentiality of Alcohol and Drug Abuse Patient Records regulations: The Federal rules restrict any use of the information to criminally investigate or prosecute any alcohol or drug abuse patient.[facility] HospitalIn the event this information is protected by the Federal Confidentiality of Alcohol and Drug Abuse Patient Records regulations: The Federal rules restrict any use of the information to criminally investigate or prosecute any alcohol or drug abuse patient.[facility] HospitalIn the event this information is protected by the Federal Confidentiality of Alcohol and Drug Abuse Patient Records regulations: The Federal rules restrict any use of the information to criminally investigate or prosecute any alcohol or drug abuse patient.[facility] HospitalIn the event this information is protected by the Federal Confidentiality of Alcohol and Drug Abuse Patient Records regulations: The Federal rules restrict any use of the information to criminally investigate or prosecute any alcohol or drug abuse patient.[facility] HospitalIn the event this information is protected by the Federal Confidentiality of Alcohol and Drug Abuse Patient Records regulations: The Federal rules restrict any use of the information to criminally investigate or prosecute any alcohol or drug abuse patient.[facility] HospitalIn the event this information is protected by the Federal Confidentiality of Alcohol and Drug Abuse Patient Records regulations: The Federal rules restrict any use of the information to criminally investigate or prosecute any alcohol or drug abuse patient.[facility] HospitalIn the event this information is protected by the Federal Confidentiality of Alcohol and Drug Abuse Patient Records regulations: The Federal rules restrict any use of the information to criminally investigate or prosecute any alcohol or drug abuse patient.[facility] HospitalIn the event this information is protected by the Federal Confidentiality of Alcohol and Drug Abuse Patient Records regulations: The Federal rules restrict any use of the information to criminally investigate or prosecute any alcohol or drug abuse patient.[facility] HospitalIn the event this information is protected by the Federal Confidentiality of Alcohol and Drug Abuse Patient Records regulations: The Federal rules restrict any use of the information to criminally investigate or prosecute any alcohol or drug abuse patient.[facility] HospitalIn the event this information is protected by the Federal Confidentiality of Alcohol and Drug Abuse Patient Records regulations: The Federal rules restrict any use of the information to criminally investigate or prosecute any alcohol or drug abuse patient.[facility] HospitalIn the event this information is protected by the Federal Confidentiality of Alcohol and Drug Abuse Patient Records regulations: The Federal rules restrict any use of the information to criminally investigate or prosecute any alcohol or drug abuse patient.[facility] HospitalIn the event this information is protected by the Federal Confidentiality of Alcohol and Drug Abuse Patient Records regulations: The Federal rules restrict any use of the information to criminally investigate or prosecute any alcohol or drug abuse patient.[facility] HospitalIn the event this information is protected by the Federal Confidentiality of Alcohol and Drug Abuse Patient Records regulations: The Federal rules restrict any use of the information to criminally investigate or prosecute any alcohol or drug abuse patient.[facility] HospitalIn the event this information is protected by the Federal Confidentiality of Alcohol and Drug Abuse Patient Records regulations: The Federal rules restrict any use of the information to criminally investigate or prosecute any alcohol or drug abuse patient.[facility] HospitalIn the event this information is protected by the Federal Confidentiality of Alcohol and Drug Abuse Patient Records regulations: The Federal rules restrict any use of the information to criminally investigate or prosecute any alcohol or drug abuse patient.[facility] HospitalIn the event this information is protected by the Federal Confidentiality of Alcohol and Drug Abuse Patient Records regulations: The Federal rules restrict any use of the information to criminally investigate or prosecute any alcohol or drug abuse patient.[facility] HospitalIn the event this information is protected by the Federal Confidentiality of Alcohol and Drug Abuse Patient Records regulations: The Federal rules restrict any use of the information to criminally investigate or prosecute any alcohol or drug abuse patient.[facility] HospitalIn the event this information is protected by the Federal Confidentiality of Alcohol and Drug Abuse Patient Records regulations: The Federal rules restrict any use of the information to criminally investigate or prosecute any alcohol or drug abuse patient.[facility] HospitalIn the event this information is protected by the Federal Confidentiality of Alcohol and Drug Abuse Patient Records regulations: The Federal rules restrict any use of the information to criminally investigate or prosecute any alcohol or drug abuse patient.[facility] HospitalIn the event this information is protected by the Federal Confidentiality of Alcohol and Drug Abuse Patient Records regulations: The Federal rules restrict any use of the information to criminally investigate or prosecute any alcohol or drug abuse patient.[facility] HospitalIn the event this information is protected by the Federal Confidentiality of Alcohol and Drug Abuse Patient Records regulations: The Federal rules restrict any use of the information to criminally investigate or prosecute any alcohol or drug abuse patient.[facility] HospitalIn the event this information is protected by the Federal Confidentiality of Alcohol and Drug Abuse Patient Records regulations: The Federal rules restrict any use of the information to criminally investigate or prosecute any alcohol or drug abuse patient.[facility] HospitalIn the event this information is protected by the Federal Confidentiality of Alcohol and Drug Abuse Patient Records regulations: The Federal rules restrict any use of the information to criminally investigate or prosecute any alcohol or drug abuse patient.[facility] HospitalIn the event this information is protected by the Federal Confidentiality of Alcohol and Drug Abuse Patient Records regulations: The Federal rules restrict any use of the information to criminally investigate or prosecute any alcohol or drug abuse patient.[facility] HospitalIn the event this information is protected by the Federal Confidentiality of Alcohol and Drug Abuse Patient Records regulations: The Federal rules restrict any use of the information to criminally investigate or prosecute any alcohol or drug abuse patient.[facility] HospitalIn the event this information is protected by the Federal Confidentiality of Alcohol and Drug Abuse Patient Records regulations: The Federal rules restrict any use of the information to criminally investigate or prosecute any alcohol or drug abuse patient.[facility] HospitalIn the event this information is protected by the Federal Confidentiality of Alcohol and Drug Abuse Patient Records regulations: The Federal rules restrict any use of the information to criminally investigate or prosecute any alcohol or drug abuse patient.[facility] HospitalIn the event this information is protected by the Federal Confidentiality of Alcohol and Drug Abuse Patient Records regulations: The Federal rules restrict any use of the information to criminally investigate or prosecute any alcohol or drug abuse patient.[facility] HospitalIn the event this information is protected by the Federal Confidentiality of Alcohol and Drug Abuse Patient Records regulations: The Federal rules restrict any use of the information to criminally investigate or prosecute any alcohol or drug abuse patient.[facility] HospitalIn the event this information is protected by the Federal Confidentiality of Alcohol and Drug Abuse Patient Records regulations: The Federal rules restrict any use of the information to criminally investigate or prosecute any alcohol or drug abuse patient.[facility] HospitalIn the event this information is protected by the Federal Confidentiality of Alcohol and Drug Abuse Patient Records regulations: The Federal rules restrict any use of the information to criminally investigate or prosecute any alcohol or drug abuse patient.[facility] HospitalIn the event this information is protected by the Federal Confidentiality of Alcohol and Drug Abuse Patient Records regulations: The Federal rules restrict any use of the information to criminally investigate or prosecute any alcohol or drug abuse patient.[facility] HospitalIn the event this information is protected by the Federal Confidentiality of Alcohol and Drug Abuse Patient Records regulations: The Federal rules restrict any use of the information to criminally investigate or prosecute any alcohol or drug abuse patient.[facility] HospitalIn the event this information is protected by the Federal Confidentiality of Alcohol and Drug Abuse Patient Records regulations: The Federal rules restrict any use of the information to criminally investigate or prosecute any alcohol or drug abuse patient.[facility] HospitalIn the event this information is protected by the Federal Confidentiality of Alcohol and Drug Abuse Patient Records regulations: The Federal rules restrict any use of the information to criminally investigate or prosecute any alcohol or drug abuse patient.[facility] HospitalIn the event this information is protected by the Federal Confidentiality of Alcohol and Drug Abuse Patient Records regulations: The Federal rules restrict any use of the information to criminally investigate or prosecute any alcohol or drug abuse patient.[facility] HospitalIn the event this information is protected by the Federal Confidentiality of Alcohol and Drug Abuse Patient Records regulations: The Federal rules restrict any use of the information to criminally investigate or prosecute any alcohol or drug abuse patient.[facility] Care Teams (unrecognized sec tion and content) Order Checker Relationship Specialty Start Date End Date Darrin Tolentino MD [address] [place], [place] [id number] PCP - General Family Practice 08/04/20 Jaswinder Yuan MD, [address], [place] [address] [phone] Physician Radiation Oncology 04/24/17 Order Checker Relationship Specialty Start Date End Date Darrin Tolentino MD [address] [place], [place] [address] PCP - General Family Practice 08/04/20 Jaswinder Yuan MD, [address] [place] [address] Physician Radiation Oncology 04/24/17 Order Checker Relationship Specialty Start Date End Date Darrin Tolentino MD [address] [facility] [place] [address] PCP - General Family Practice 08/04/20 Jaswinder Yuan MD, [address] [facility] [place] [address] Physician Radiation Oncology 04/24/17 Order Checker Relationship Specialty Start Date End Date Darrin Tolentino MD [address] [facility] [place] [address] PCP - General Family Practice 08/04/20 Jaswinder Yuan MD, [address] [place] [address] Physician Radiation Oncology 04/24/17 Order Checker Relationship Specialty Start Date End Date Darrin Tolentino MD [address] [facility] [place] [place] [address] PCP - General Family Practice 08/04/20 Jaswinder Yuan MD, [address] [facility] [place] [address] Physician Radiation Oncology 04/24/17 Order Checker Relationship Specialty Start Date End Date Darrin Tolentino MD [address] [facility] [place] [address] PCP - General Family Practice 08/04/20 Jaswinder Yuan MD, [address] [place] [address] Physician Radiation Oncology 04/24/17 Order Checker Relationship Specialty Start Date End Date Darrin Tolentino MD [address] [place] [address] PCP - General Family Practice 08/04/20 Jaswinder Yuan MD, [address] [place] [address] Physician Radiation Oncology 04/24/17 Order Checker Relationship Specialty Start Date End Date Darrin Tolentino MD [address] [facility] [place] [address] PCP - General Family Practice 08/04/20 Jaswinder Yuan MD, [address] [place] [address] Physician Radiation Oncology 04/24/17 Order Checker Relationship Specialty Start Date End Date Darrin Tolentino MD [address] [facility] [place] [address] PCP - General Family Practice 08/04/20 Jaswinder Yuan MD, [address] [place] [address] Physician Radiation Oncology 04/24/17 Order Checker Relationship Specialty Start Date End Date Darrin Tolentino MD [address] [facility] [place] [address] PCP - General Family Practice 08/04/20 Jaswinder Yuan MD, [address] [place] [address] Physician Radiation Oncology 04/24/17 Order Checker Relationship Specialty Start Date End Date Darrin Tolentino MD [address] [facility] [place] [address] PCP - General Family Practice 08/04/20 Jaswinder Yuan MD, [address] [place] [address] Physician Radiation Oncology 04/24/17 Order Checker Relationship Specialty Start Date End Date Darrin Tolentino MD [address] [place] [address] PCP - General Family Practice 08/04/20 Jaswinder Yuan MD, [address] [place] [address] Physician Radiation Oncology 04/24/17 Order Checker Relationship Specialty Start Date End Date Darrin Tolentino MD [address] [facility] [place] [address] PCP - General Family Practice 08/04/20 Jaswinder Yuan MD, [address] [facility] [place] [address] Physician Radiation Oncology 04/24/17 Order Checker Relationship Specialty Start Date End Date Darrin Tolentino MD [address] [facility] [place] [place] [address] PCP - General Family Practice 08/04/20 Jaswinder Yuan MD, [address] [facility] [place] [address] Physician Radiation Oncology 04/24/17 Order Checker Relationship Specialty Start Date End Date Darrin Tolentino MD [address] [facility] [place] [address] PCP - General Family Practice 08/04/20 Jaswinder Yuan MD, [address] [place] [address] Physician Radiation Oncology 04/24/17 Order Checker Relationship Specialty Start Date End Date Darrin Tolentino MD [address] [facility] [place] [address] PCP - General Family Practice 08/04/20 Jaswinder Yuan MD, [address] [place] [address] Physician Radiation Oncology 04/24/17 Order Checker Relationship Specialty Start Date End Date Darrin Tolentino MD [address] [facility] [place] [place] [address] PCP - General Family Practice 08/04/20 Jaswinder Yuan MD, [address] [facility] [place] [address] Physician Radiation Oncology 04/24/17 Order Checker Relationship Specialty Start Date End Date Darrin Tolentino MD [address] [facility] [place] [address] PCP - General Family Practice 08/04/20 Jaswinder Yuan MD, [address] [facility] [place] [address] Physician Radiation Oncology 04/24/17 Order Checker Relationship Specialty Start Date End Date Darrin Tolentino MD [address] [facility] [place] [address] PCP - General Family Practice 08/04/20 Jaswinder Yuan MD, MD [address] [facility] [place] [address] Physician Radiation Oncology 04/24/17 Order Checker Relationship Specialty Start Date End Date Darrin Tolentino MD [address] [facility] [place] [address] PCP - General Family Medicine 08/04/20 Jaswinder Yuan MD, [address] [facility] [place] [address] Physician Radiation Oncology 04/24/17 Order Checker Relationship Specialty Start Date End Date Darrin Tolentino MD [address] [facility] [place] [address] PCP - General Family Medicine 08/04/20 Jaswinder Yuan MD, [address] [place] [address] Physician Radiation Oncology 04/24/17 Order Checker Relationship Specialty Start Date End Date Darrin Tolentino MD [address] [facility] [place] [address] PCP - General Family Medicine 08/04/20 Jaswinder Yuan MD, [address] [place] [address] Physician Radiation Oncology 04/24/17 Order Checker Relationship Specialty Start Date End Date Darrin Tolentino MD [address] [facility] [place] [address] PCP - General Family Medicine 08/04/20 Jaswinder Yuan MD, [address] [place] [address] Physician Radiation Oncology 04/24/17 Order Checker Relationship Specialty Start Date End Date Darrin Tolentino MD [address] [facility] [place] [address] PCP - General Family Medicine 08/04/20 Jaswinder Yuan MD, [address] [address] Physician Radiation Oncology 04/24/17 Order Checker Relationship Specialty Start Date End Date Darrin Tolentino MD [address] [facility] [place] [address] PCP - General Family Medicine 08/04/20 Jaswinder Yuan MD, [address] [place] [address] Physician Radiation Oncology 04/24/17 Order Checker Relationship Specialty Start Date End Date Darrin Tolentino MD [address] [facility] [place] [address] PCP - General Family Medicine 08/04/20 Jaswinder Yuan MD, [address] [place] [address] Physician Radiation Oncology 04/24/17 Order Checker Relationship Specialty Start Date End Date Darrin Tolentino MD [address] [facility] [place] [address] PCP - General Family Medicine 08/04/20 Jaswinder Yuan MD, [address] [place] [address] Physician Radiation Oncology 04/24/17 Order Checker Relationship Specialty Start Date End Date Darrin Tolentino MD [address] [facility] [place] [address] PCP - General Family Medicine 08/04/20 Jaswinder Yuan MD, [address] [facility] [place] [address] Physician Radiation Oncology 04/24/17 Order Checker Relationship Specialty Start Date End Date Darrin Tolentino MD [address] [facility] [place] [address] PCP - General Family Medicine 08/04/20 Jaswinder Yuan MD, [address] [place] [address] Physician Radiation Oncology 04/24/17 Order Checker Relationship Specialty Start Date End Date Darrin Tolentino MD [address] [facility] [place] [address] PCP - General Family Medicine 08/04/20 Jaswinder Yuan MD, [address] [place] [address] Physician Radiation Oncology 04/24/17 Order Checker Relationship Specialty Start Date End Date Darrin Tolentino MD [address] [facility] [place] [address] PCP - General Family Medicine 08/04/20 Jaswinder Yuan MD, [address] [place] [address] Physician Radiation Oncology 04/24/17 Order Checker Relationship Specialty Start Date End Date Darrin Tolentino MD [address] [facility] [place] [address] PCP - General Family Medicine 08/04/20 Jaswinder Yuan MD, [address] [facility] [facility] [place] [address] Physician Radiation Oncology 04/24/17 Dalila Vasquez, LILA [address] [facility] [address] Hematology/Oncology 06/22/22 Order Checker Relationship Specialty Start Date End Date Darrin Tolentino MD [address] [facility] [place] [address] PCP - General Family Medicine 08/04/20 Jaswinder Yuan MD, [address] [facility] [facility] [place] [place] [address] Physician Radiation Oncology 04/24/17 Dalila Vasquez, RN [address] [place] [address] Hematology/Oncology 06/22/22 Order Checker Relationship Specialty Start Date End Date Darrin Tolentino MD [address] [facility] [place] [address] PCP - General Family Medicine 08/04/20 Jaswinder Yuan MD, [address] [place] [address] Physician Radiation Oncology 04/24/17 Dalila Vasquez, RN [address] [place] [address] Hematology/Oncology 06/22/22 Order Checker Relationship Specialty Start Date End Date Darrin Tolentino MD [address] [facility] [place] [address] PCP - General Family Medicine 08/04/20 Jaswinder Yuan MD, [address] [place] [address] Physician Radiation Oncology 04/24/17 Dalila Vasquez, LILA [address] [place] [address] Hematology/Oncology 06/22/22 Order Checker Relationship Specialty Start Date End Date Darrin Tolentino MD [address] [facility] [place] [address] PCP - General Family Medicine 08/04/20 Jaswinder Yuan MD, [address] [place] [address] Physician Radiation Oncology 04/24/17 Dalila Vasquez, RN [address] [place] [address] Hematology/Oncology 06/22/22 Order Checker Relationship Specialty Start Date End Date Darrin Tolentino MD [address] [facility] [place] [address] PCP - General Family Medicine 08/04/20 Jaswinder Yuan MD, [address] [place] [address] Physician Radiation Oncology 04/24/17 Dalila Vasquez, LILA [address] [place] [address] Hematology/Oncology 06/22/22 Order Checker Relationship Specialty Start Date End Date Darrin Tolentino MD [address] [place] [address] PCP - General Family Medicine 08/04/20 Jaswinder Yuan MD, [address] [place] [address] Physician Radiation Oncology 04/24/17 Dalila Vasquez RN [address] [place] [address] Hematology/Oncology 06/22/22 Order Checker Relationship Specialty Start Date End Date Darrin Tolentino MD [address] [place] [address] PCP - General Family Medicine 08/04/20 Jaswinder Yuan MD, [address] [place] [address] Physician Radiation Oncology 04/24/17 Dalila Vasquez, LILA [address] [place] [address] Hematology/Oncology 06/22/22 Order Checker Relationship Specialty Start Date End Date Darrin Tolentino MD [address] [place] [address] PCP - General Family Medicine 08/04/20 Jaswinder Yuan MD, [address] [place] [address] Physician Radiation Oncology 04/24/17 Dalila Vasquez, LILA [address] [place] [address] Hematology/Oncology 06/22/22 Order Checker Relationship Specialty Start Date End Date Darrin Tolentino MD [address] [facility] [place] [address] PCP - General Family Medicine 08/04/20 Jaswinder Yuan MD, [address] [place] [address] Physician Radiation Oncology 04/24/17 Dalila Vasquez, LILA [address] [place] [address] Hematology/Oncology 06/22/22 Order Checker Relationship Specialty Start Date End Date Darrin Tolentino MD [address] [facility] [place] [address] PCP - General Family Medicine 08/04/20 Jaswinder Yuan MD, [address] [place] [address] Physician Radiation Oncology 04/24/17 Dalila Vasquez RN [address] [place] [address] Hematology/Oncology 06/22/22 Order Checker Relationship Specialty Start Date End Date German Merino [address] [place] [address] PCP - General 09/09/22 Order Checker Relationship Specialty Start Date End Date German Merino [address] [place] [address] PCP - General 09/09/22 Order Checker Relationship Specialty Start Date End Date Darrin Tolentino MD [address] [facility] [place] [address] PCP - General Family Medicine 08/04/20 Jaswinder Yuan MD, [address] [place] [address] Physician Radiation Oncology 04/24/17 Dalila Vasquez, LILA [address] [place] [address] Hematology/Oncology 06/22/22 Order Checker Relationship Specialty Start Date End Date Darrin Tolentino MD [address] [facility] [place] [address] PCP - General Family Medicine 08/04/20 Jaswinder Yuan MD, [address] [place] [address] Physician Radiation Oncology 04/24/17 Dalila Vasquez RN [address] [place] [address] Hematology/Oncology 06/22/22 Order Checker Relationship Specialty Start Date End Date Darrin Tolentino MD [address] [facility] [place] [address] PCP - General Family Medicine 08/04/20 Jaswinder Yuan MD, [address] [place] [address] Physician Radiation Oncology 04/24/17 Dalila Vasquez, RN [address] [place] [address] Hematology/Oncology 06/22/22 Order Checker Relationship Specialty Start Date End Date Darrin Tolentino MD [address] [place] [address] PCP - General Family Medicine 08/04/20 Jaswinder Yuan MD, [address] [place] [address] Physician Radiation Oncology 04/24/17 Dalila Vasquez, RN [address] [place] [address] Hematology/Oncology 06/22/22 Order Checker Relationship Specialty Start Date End Date Darrin Tolentino MD [address] [place] [address] PCP - General Family Medicine 08/04/20 Jaswinder Yuan MD, [address] [place] [address] Physician Radiation Oncology 04/24/17 Dalila Vasquez, RN [address] [place] [address] Hematology/Oncology 06/22/22 Order Checker Relationship Specialty Start Date End Date Darrin Tolentino MD [address] [place] [address] PCP - General Family Medicine 08/04/20 Jaswinder Yuan MD, [address] [place] [address] Physician Radiation Oncology 04/24/17 Dalila Vasquez, LILA [address] [place] [address] Hematology/Oncology 06/22/22 Order Checker Relationship Specialty Start Date End Date Merino German George [address] [place] [address] PCP - General 09/09/22 Order Checker Relationship Specialty Start Date End Date Darrin Tolentino MD [address] [place] [address] PCP - General Family Medicine 08/04/20 Jaswinder Yuan MD, [address] [place] [address] Physician Radiation Oncology 04/24/17 Dalila Vasquez, LILA [address] [place] [address] Hematology/Oncology 06/22/22 Jude Tam MD [address] [place] [address] Hematology/Oncology 12/16/22 Order Checker Relationship Specialty Start Date End Date Darrin Tolentino MD [address] [place] [address] PCP - General Family Medicine 08/04/20 Jaswinder Yuan MD, [address] [place] [address] Physician Radiation Oncology 04/24/17 Dalila Vasquez, RN [address] [place] [address] Hematology/Oncology 06/22/22 Jdue Tam MD [address] [place] [address] Hematology/Oncology 12/16/22 Order Checker Relationship Specialty Start Date End Date Darrin Tolentino MD [address] [place] [address] PCP - General Family Medicine 08/04/20 Jaswinder Yuan MD, [address] [place] [address] Physician Radiation Oncology 04/24/17 Dalila Vasquez, LILA [address] [place] [address] Hematology/Oncology 06/22/22 Jude Tam MD [address] [place] [address] Hematology/Oncology 12/16/22 Order Checker Relationship Specialty Start Date End Date Darrin Tolentino MD [address] [place] [address] PCP - General Family Medicine 08/04/20 Jaswinder Yuan MD, [address] [place] [address] Physician Radiation Oncology 04/24/17 Dalila Vasquez, LILA [address] [place] [address] Hematology/Oncology 06/22/22 Jude Tam MD [address] [place] [address] Hematology/Oncology 12/16/22 Order Checker Relationship Specialty Start Date End Date Darrin Tolentino MD [address] [place] [address] PCP - General Family Medicine 08/04/20 Jaswinder Yuan MD, [address] [place] [address] Physician Radiation Oncology 04/24/17 Dalila Vasquez, LILA [address] [place] [address] Hematology/Oncology 06/22/22 Jude Tam MD [address] [place] [address] Hematology/Oncology 12/16/22 Order Checker Relationship Specialty Start Date End Date Darrin Tolentino MD [address] [place] [address] PCP - General Family Medicine 08/04/20 Jaswinder Yuan MD, [address] [place] [address] Physician Radiation Oncology 04/24/17 Dalila Vasquez, LILA [address] [place] [address] Hematology/Oncology 06/22/22 Jude Tam MD [address] [place] [address] Hematology/Oncology 12/16/22 Order Checker Relationship Specialty Start Date End Date Darrin Tolentino MD [address] [place] [address] PCP - General Family Medicine 08/04/20 Jaswinder Yuan MD, [address] [place] [address] Physician Radiation Oncology 04/24/17 Dalila Vasquez, LILA [address] [place] [address] Hematology/Oncology 06/22/22 Jude Tam MD [address] [place] [address] Hematology/Oncology 12/16/22 Order Checker Relationship Specialty Start Date End Date Darrin Tolentino MD [address] [place] [address] PCP - General Family Medicine 08/04/20 Jaswinder Yuan MD, [address] [place] [address] Physician Radiation Oncology 04/24/17 Dalila aVsquez, RN [address] [place] [address] Hematology/Oncology 06/22/22 Jude Tam MD [address] [place] [address] Hematology/Oncology 12/16/22 Order Checker Relationship Specialty Start Date End Date Darrin Tolentino MD [address] [place] [address] PCP - General Family Medicine 08/04/20 Jaswinder Yuan MD, [address] [place] [address] Physician Radiation Oncology 04/24/17 Dalila Vasquez, LILA [address] [place] [address] Hematology/Oncology 06/22/22 Jude Tam MD [address] [place] [address] Hematology/Oncology 12/16/22 Order Checker Relationship Specialty Start Date End Date Darrin Tolentino MD [address] [place] [address] PCP - General Family Medicine 08/04/20 Jaswinder Yuan MD, MD [address] [place] [address] Physician Radiation Oncology 04/24/17 Dalila Vasquez RN [address] [place] [address] Hematology/Oncology 06/22/22 Order Checker Relationship Specialty Start Date End Date Darrin Tolentino MD [address] [place] [address] PCP - General Family Medicine 08/04/20 Jaswinder Yuan MD, [address] [place] [address] Physician Radiation Oncology 04/24/17 Dalila Vasquez, LILA [address] [place] [address] Hematology/Oncology 06/22/22 Jude Tam MD [address] [place] [address] Hematology/Oncology 12/16/22 Order Checker Relationship Specialty Start Date End Date Darrin Tolentino MD [address] [place] [address] PCP - General Family Medicine 08/04/20 Jaswinder Yuan MD, [address] [place] [address] Physician Radiation Oncology 04/24/17 Dalila Vasquez, RN [address] [place] [address] Hematology/Oncology 06/22/22 Jude Tam MD [address] [place] [address] Hematology/Oncology 12/16/22 Order Checker Relationship Specialty Start Date End Date Darrin Tolentino MD [address] [place] [address] PCP - General Family Medicine 08/04/20 Jaswinder Yuan MD, [address] [place] [address] Physician Radiation Oncology 04/24/17 Dalila Vasquez, RN [address] [place] [address] Hematology/Oncology 06/22/22 Jude Tam MD [address] [place] [address] Hematology/Oncology 12/16/22 Order Checker Relationship Specialty Start Date End Date Darrin Tolentino MD [address] [place] [address] PCP - General Family Medicine 08/04/20 Jaswinder Yuan MD, [address] [place] [address] Physician Radiation Oncology 04/24/17 Dalila Vasquez, RN [address] [place] [address] Hematology/Oncology 06/22/22 Jude Tam MD [address] [place] [address] Hematology/Oncology 12/16/22 Reason for Visit (unrecogniz ed section and content) Reason Comments Lab Orders Reason Comments Appointment Cancelled Reason Comments Blood Pressure Reason Comments Recheck 6 months Derm Problem LT hand Reason Comments Established Patient Reason Onset Date Comments Refill Request 08/27/2021 [facility] Reason Comments Refill Request [facility] to [facility] Reason Comments Imm/Inj Specialty Diagnoses / Procedures Referred By Contac t Referred To Contact Diagnoses Prostate cancer (HCC) Procedures INJECTION, ZOLEDRONIC ACID, 1 MG LEUPROLIDE ACETATE SUSPNSION Abdirizak Dixon DO [address] [place] [address] [facility] [address] [place] [address] Referral ID Status Reason Start Date Expiration Date V isits Requested Visits Authorized [id number] Authorized 12/25/2020 12/20/2021 4 4 Reason Comments Difficulty Urinating x1 day pain rated 1 0, urgnecy Ca txt AM Reason Comments Follow Up Reason Comments Appointment Rescheduled Reason Onset Date Comments Refill Request 09/21/2021 Reason Comments Rx Refills Reason Onset Date Comments SPP Oral Oncology/hematology - Patient Assistanc e 10/05/2021 Abiraterone Reason Onset Date Comments Refill Request 11/15/2021 Reason Comments Patient Question Reason Comments Orders Specialty Diagnoses / Procedures Referred By Contac t Referred To Contact Diagnoses Prostate cancer (HCC) Procedures INJECTION, ZOLEDRONIC ACID, 1 MG LEUPROLIDE ACETATE SUSPNSION Abdirizak Dixon, DO [address] [facility] [place] [address] Jaswant [facility] [address] [place] [address] Referral ID Status Reason Start Date Expiration Date V isits Requested Visits Authorized Authorized 12/25/2020 11/10/2022 8 8 Reason Comments Opened In Error Reason Comments Appointment Reason Comments Social Work Services Reason Comments Erroneous encounter-disregard Reason Comments Blood Pressure Check Reason Comments Medication Problem Reason Comments Benefits Investigation Reason Onset Date Comments Refill Request 03/04/2022 Reason Comments Medicare Wellness Exam Reason Comments Hospital F/U Reason Onset Date Comments Refill Request 05/23/2022 Reason Onset Date Comments SPP Oral Oncology/hematology - Treatment Referra l 05/23/2022 [employer] Insurance Authorization 05/23/2022 Previous PA Reason Comments Zytiga Assist Reason Comments leg swelling Reason Onset Date Comments Refill Request 05/30/2022 Abiraterone to [facility] Reason Onset Date Comments [facility]PP Oral Oncology/hematology - Medication Refill 05/31/2022 Abiraterone Reason Comments Edema Bilat leg swelling f rom top of legs down to feet X 2 wks Reason Comments Results Reason Comments Follow Up Bilateral leg edema Reason Comments Super[facility] - Other Oral Chemo Educ ation Reason Onset Date Comments SPP Oral Oncology/hematology - Medication Refill 06/29/2022 Abiraterone 250mg Reason Comments Appointment Reason Comments Care Coordination EMERGENCY ROOM CALL BACK Reason Comments Recheck Reason Onset Date Comments SPP Oral Oncology/hematology - Medication Refill 07/25/2022 Abiraterone Reason Onset Date Comments Refill Request 08/02/2022 Reason Comments Chest Congestion cough,sob, tingling in hands and arms x last night Reason Comments Cough Pt reported chest co ngestion x2 wks. Reason Comments Outside Lab Results Reason Comments Consult Reason Comments Consult Cardiology/heart cat h Reason Comments 6 Month Exam Reason Comments Cardiac Valve Problem Specialty Diagnoses / Procedures [facility] To Contact Radiology Diagnoses Aortic stenosis Procedures CTA Angiogram TAVR Otoniel Hudson MD [address] [place] [address] Referral ID Status Reason Start Date Expiration Date Visits Re quested Visits Authorized [id number] Closed 09/12/2022 03/11/2023 1 1 Reason Comments Urinary Incontinence Consult And history of kidne y stones Reason Comments ER Discharge Summary Reason Comments Results [facility] Reason Onset Date Comments Refill Request 10/19/2022 Reason Onset Date Comments Refill Request 10/25/2022 Reason Comments GI Consult Reason Comments ED Follow-up Referral ID Status Reason Start Date Expiration Date V isits Requested Visits Authorized [id number] Authorized 12/25/2020 11/06/2023 12 12 Reason Onset Date Comments Refill Request 12/04/2022 Reason Comments Outside History and Physical CT, procedu re Outside Urology Reason Comments [facility] - ED Follow Up Reason Comments Follow Up Discuss plan Blood In Urine Prostate Cancer Specialty Diagnoses / Procedures [facility] Referred To Contact UROLOGY Diagnoses Catheter removal Procedures Catheter removal Morgan Ramírez PA-C [address] [place] [address] [facility] [address] [place] [address] Referral ID Status Reason Start Date Expiration Date Visits Requested Visits Authorized [id number] Pending Review OON/Self Pay Override 01/17/2023 07/16/2023 1 1 Reason Comments [employer] forms Reason Comments Cystoscopy-[address] d in December for urinary retention and blood clots. Catheter was last changed 01/08/2023. Reason Comments Established Patient 3 month OV with Lupr on injection Reason Comments Radiology CT Specialty Diagnoses / Procedures [facility] Ref[facility] To Contact CT IMAGING Diagnoses Lung nodules Procedures CT CHEST WO IVCON DIAGNOSTIC COMPUTED TOMOGRAPHY THORAX W/O CNTRST Darrin Tolentino MD [address] [place] [address] [place] [id number] Referral ID Status Reason Start Date Expiration Date V isits Requested Visits Authorized [id number] Closed Auto-Generate d Referral 07/05/2022 08/04/2023 1 1 Reason Comments Medicare Wellness Exam Specialty Diagnoses / Procedures Referred By Sandi t Referred To Contact FAMILY MEDICINE Diagnoses medicare wellness Procedures office visit Darrin Tolentino MD [address] [place] [address] [facility] [address] [place] [address] Referral ID Status Reason Start Date Expiration Date Visits Requested Visits Authorized [id number] Pending Review OON/Self Pay Override 02/08/2023 08/07/2023 1 1 Reason Onset Date Comments Refill Request 03/16/2023 Reason Comments [place] Catheter Change Reason Onset Date Comments Refill Request 04/12/2023 FOR RECORDS PERTAINING TO PATIENTS WHO ARE OR HAVE BEEN ENROLLED IN A CHEMICAL DEPENDENCY/SUBSTANCEABUSE PROGRAM, SOME INFORMATION MAY BE OMITTED. This clinical summary was aggregated from multiple sources. Caution should be exercised in using it in the provision of clinical care. This summary normalizes information from multiple sources, and as a consequence, information in this document may materially change the coding, format and clinical context of patient data. In addition, data may be omitted in some cases. CLINICAL DECISIONS SHOULD BE BASED ON THE PRIMARY CLINICAL RECORDS. [employer] [facility]. provides no warranty or guarantee of the accuracy or completeness of information in this document.
--- NOTE | 2023-04-29 01:24 | ED.RN ---
Spoke to Dr. Ruff about bed 7's pressure starting to trend down, he gave verbal order for an additional 2500ml bolus to equal 30ml/kg fluid bolus for sepsis. Ordered entered and fluids initiated in ED.
[2023-04-29] MEDS: 0.9% Normal Saline (500mL Bag) 500 ML 999 ML IV (01:28)
[2023-04-29] MEDS: 0.9% Normal Saline (1000mL) 1,000 ML 999 ML IV ×2 (01:28→03:23)
[2023-04-29 01:30] LABS: PSA,Total - Annual Screen 0.12 ng/mL (0.00-4.00)
[2023-04-29 02:14] LABS: Blood Gas Specimen Type VEN; O2 Delivery Device Not entered; SITE Not entered; VBG BASE EXCESS 0 mmol/L (-1.0-3.5); VBG Bicarbonate 24 mmol/L (22-26); VBG PO2 37 mmHg (25-40); VBG SO2 74 % (50-70); VBG TCO2 25 mmol/L (23-33); VBG pCO2 34.9 mmHg (41-51); VBG pH 7.44 (7.32-7.42)
[2023-04-29 02:18] LABS: Amphetamine Urine VISTA NEGATIVE (<1000 ng/mL); Barbiturate Urine VISTA NEGATIVE (< 200 ng/mL); Benzodiazepine Urine VISTA NEGATIVE (< 200 ng/mL); Cocaine Urine VISTA NEGATIVE (< 300 ng/mL); Ecstacy Urine VISTA NEGATIVE (< 500 ng/mL); Methadone Urine VISTA NEGATIVE (< 300 ng/mL); PCP Urine VISTA NEGATIVE (< 25 ng/mL); THC Urine VISTA NEGATIVE (< 50 ng/mL); Vista UDS pH Range 6
[2023-04-29 02:19] LABS: Cholesterol 144 mg/dL (200); High Density Lipoprotein 46 mg/dL; Triglycerides 112 mg/dL; Very Low Density Lipoprotein 22 mg/dL (5-40)
[2023-04-29 07:33] LABS: Absolute Lymphocyte Count 0.53 X10^3/uL (0.83-4.51); Basophil# 0.02 X10^3/uL; Basophil% 0.1 % (0-1); Lymphocyte # 0.53 X10^3/ul (0.83-4.51); Lymphocyte % 3.9 % (19-41); Mean Corp Hgb Conc 30.8 g/dL (32-36); Mean Corpuscular Hgb 26.7 pg (27.0-32.0); Mean Corpuscular Volume 86.7 fL (80-94); Mean Platelet Vol. 9.4 fl (6.2-12.0); Monocyte# 1.08 X10^3/uL; Monocyte% 7.9 % (0-10); NRBC Flagged by Analyzer 0 % (0-5); Neutrophil # 11.95 X10^3/uL (2.7-7.7); Neutrophil % 87.4 % (47-70); POSITIVE DIFFERENTIAL YES; POSITIVE MORPHOLOGY YES; Platelet Count 191 K/mm3 (150-450); RBC Distribution Width CV 14.3 % (11.6-14.6); RBC Distribution Width SD 45.7 fl (35.1-43.9); White Blood Count 13.7 K/mm3 (4.4-11.0)
[2023-04-29 07:51] LABS: Differential Indicated SCAN CRITERIA MET
[2023-04-29 07:56] LABS: ALB/GLOB Ratio 0.5 RATIO (0.9-2.4); AST(SGOT) 32 U/L (15-37); Alanine Aminotransfer ALT/SGPT 19 U/L (16-61); Albumin, Serum 2.2 g/dL (3.2-5.0); Alkaline Phosphatase 66 U/L (45-117); Anion Gap 6 (5-15); BUN 21 mg/dL (7-18); BUN/Creat Ratio 17.8 RATIO (10-20); Calcium,Total 7.9 mg/dL (8.5-10.1); Chloride 103 mmol/L (98-107); Creatinine, Serum 1.18 mg/dL (0.70-1.30); EST Glomerular Filtration Rate 63 mL/min (>60); Est Glom Filt Rate - Afr Amer 76 mL/min (>60); Estimated Creatinine Clearance 48.98 ml/min; Globulin 4.8 g/dL (2.2-4.2); Glucose 133 mg/dL (74-106); Potassium 3.6 mmol/L (3.5-5.1); Sodium Level 132 mmol/L (136-145); Thyroid Stim Hormone (TSH) 0.53 uIU/mL (0.358-3.74)
[2023-04-29] MEDS: Ensure Plus High Protein 120 ML LIQUID PO (08:33)
[2023-04-29] MEDS: Pantoprazole Sodium 20 MG Tablet PO (08:35)
[2023-04-29] MEDS: Multivitamins,Ther W-Minerals Tablet 1 TABLET PO (08:35)
[2023-04-29] MEDS: Tamsulosin HCl 0.4 MG Capsule 0.400000000000000022 MG PO (08:36)
[2023-04-29] MEDS: Finasteride 5 MG Tablet PO (08:36)
[2023-04-29] MEDS: Cholecalciferol (Vit D3) 125 MCG CAPSULE (5,000 UNITS) PO (08:36)
[2023-04-29 09:55] LABS: Differential Comment SCANNED
[2023-04-29] MEDS: Cefepime HCl 1 GM in 0.9% Normal Saline (50mL MB+) 50 ML IV ×2 (10:09→22:15)
--- NOTE | 2023-04-29 10:31 | ECHOD_ITS ---
Reason For Study: Emboli Procedure This was a 2D Doppler, Color Flow transthoracic echocardiogram. Exam performed portable in patient room. Left Ventricle Normal LV size. Moderate concentric left ventricular hypertrophy. Left ventricular systolic function is normal. The estimated ejection fraction is 55-60 %. Stage 2 diastolic dysfunction. No regional wall motion abnormalities noted. Right Ventricle Normal RV size. Normal systolic function. Atria The left atrium is mildly enlarged. Normal right atrium. Mitral Valve Severe mitral annular calcification. Moderate focal mitral valve thickening. Moderate mitral valve stenosis. Mean transmitral valve gradient 9 mmHg. Tricuspid Valve Normal tricuspid valve. Mild (1+) tricuspid valve insufficiency. Right ventricular systolic pressure estimated to be 51 mmHg. Aortic Valve Peak aortic valve gradient 36 mmHg. Mean aortic valve gradient 19 mmHg. Mild (1+) eccentric aortic valve insufficiency. Bioprosthetic aortic valve. Possible mobile mass on aortic valve measuring 2.1 x .5 cm. Pulmonic Valve The pulmonic valve is not well visualized. Great Vessels Normal aortic root. Pericardium/Pleural No pericardial effusion. MMode/2D Measurements & Calculations LVIDd: 4.2 cm IVSd: 1.5 cm LVOT diam: 2.3 cm LVIDs: 2.2 cm LVPWd: 1.7 cm LVOT area: 4.1 cm2 RVDd: 4.2 cm FS: 47.2 % Ao root diam: 3.5 cm LAV(MOD-bp): 97.3 ml LVAd ap4: 33.8 cm2 LAV(MOD-bp) Indexed: 42.5 ml/m2 LVLd ap4: 9.0 cm LAV(MOD-sp2): 106.0 ml EDV(MOD-sp4): 109.1 ml LAV(MOD-sp4): 90.3 ml EDV(sp4-el): 108.3 ml LVAs ap4: 18.4 cm2 LVLs ap4: 7.6 cm ESV(MOD-sp4): 38.9 ml ESV(sp4-el): 38.1 ml EF(MOD-sp4): 64.3 % EF(sp4-el): 64.9 % LVAd ap2: 33.9 cm2 SV(MOD-sp4): 70.2 ml SV(MOD-sp2): 65.0 ml LVLd ap2: 8.9 cm EDV(MOD-sp2): 111.7 ml EDV(sp2-el): 109.9 ml LVAs ap2: 20.8 cm2 LVLs ap2: 7.9 cm ESV(MOD-sp2): 46.7 ml ESV(sp2-el): 46.5 ml EF(MOD-sp2): 58.2 % SV(sp4-el): 70.2 ml LA dimension(2D): 4.3 cm LA A4 area: 26.2 cm2 RA A4 area: 18.7 cm2 TAPSE: 2.3 cm Time Measurements MV dec time: 0.34 sec Doppler Measurements & Calculations MV E max grant: 142.0 cm/sec Lat Peak E' Grant: 10.8 cm/sec Med Peak E' Grant: 6.2 cm/sec MV A max rgant: 176.5 cm/sec E/E' lat: 13.2 E/E' med: 22.8 MV E/A: 0.80 MV V2 max: 208.7 cm/sec MV P1/2t max grant: 157.5 cm/sec Ao V2 max: 297.8 cm/sec MV max P.4 mmHg MV P1/2t: 96.8 msec Ao max P.5 mmHg MV V2 mean: 141.4 cm/sec Ao V2 mean: 204.3 cm/sec MV mean P.7 mmHg MV dec slope: 476.4 cm/sec2 Ao mean P.8 mmHg MV V2 VTI: 47.4 cm MVA(P1/2t): 2.3 cm2 Ao V2 VTI: 49.5 cm AV (velocity ratio): 0.53 MVA(VTI): 2.3 cm2 RADHA(I,D): 2.2 cm2 RADHA(V,D): 2.1 cm2 LV V1 max: 150.1 cm/sec SV(LVOT): 107.6 ml PA V2 max: 79.2 cm/sec LV V1 max P.0 mmHg LV V1 mean P.2 mmHg LV V1 mean: 108.5 cm/sec LV V1 VTI: 26.3 cm TR max grant: 328.6 cm/sec TR max P.2 mmHg ECHO/Echo Complete Interpretation Summary The estimated ejection fraction is 55-60 %. Stage 2 diastolic dysfunction. The left atrium is mildly enlarged. Moderate mitral valve stenosis. Bioprosthetic aortic valve. Possible mobile mass on aortic valve measuring 2.1 x .5 cm. Recommend KAROLINA to as sess for endocarditis. Ordering Physician: Raina Nair Performed By: Elizabeth Gómez, LACEY
[2023-04-29] MEDS: Vancomycin HCl 2,000 MG in 0.9% Normal Saline (500mL Bag) 500 ML 250 MG IV (12:45)
--- NOTE | 2023-04-29 13:19 | NURSING ---
hospice here to talk to pt.
--- NOTE | 2023-04-29 13:21 | PCM.PROGNOTE ---
Subjective Subjective Patient seen and examined. He had no complaints. HE denied any fever, chills, cough, chest pain, palpitations, dizziness, nausea, vomiting or any other symptoms. Review of systems is otherwise negative. Blood cultures are all positive for gram positive cocci. Objective Data Objective Data Vital Signs: Vital Signs Temp Pulse Resp BP Pulse Ox O2 Del Method O2 Flow Rate 98.1 F 102 H 18 106/74 95 Room Air 3 04/29/23 08:26 04/29/23 08:26 04/29/23 08:26 04/29/23 08:26 04/29/23 11:58 04/29/23 11:58 04/29/23 04:30 Oxygen Flow Rate (L/min) 3 Oxygen Delivery Method Room Air Weight: 249 lb 6.4 oz Body Mass Index (BMI) 35.7 Intake & Output: Intake and Output for Last 24 Hours 04/27/23 04/28/23 04/29/23 23:59 23:59 23:59 Intake Total 3870 / 3870 Output Total 600 / 600 Balance 3270 / 3270 Lab / Micro Data 04/29/23 06:41 04/29/23 06:41 Labs: Laboratory Results - last 24 hr 04/28/23 22:35: WBC 15.2 H, RBC 3.65 L, Hgb 10.0 L, Hct 31.6 L, MCV 86.6, MCH 27.4, MCHC 31.6 L, RDW Std Deviation 45.9 H, RDW Coeff of Marta 14.3, Plt Count 253, MPV 9.5, Immature Gran % (Auto) 0.700, Neut % (Auto) 85.8 H, Lymph % (Auto) 5.7 L, [place] % (Auto) 7.5, Eos % (Auto) 0.0, Baso % (Auto) 0.3, Absolute Neuts (auto) 13.0 H, Absolute Lymphs (auto) 0.87, Nucleated RBC % 0, PT 15.8 H, INR 1.3, APTT 29.8, Sodium 130 L, Potassium 4.0, Chloride 96 L, Carbon Dioxide 28.0, Anion Gap 6, BUN 22 H, Creatinine 1.46 H, Estim Creat Clear Calc 39.58, Est GFR (MDRD) Af Amer 59 L, Est GFR (MDRD) Non-Af 49 L, BUN/Creatinine Ratio 15.1, Glucose 152 H, Lactic Acid 1.5, Calcium 9.1, Phosphorus 3.0, Total Bilirubin 1.00, AST 31, ALT 21, Alkaline Phosphatase 82, Total Protein 8.9 H, Albumin 2.7 L, Globulin 6.2 H, Albumin/Globulin Ratio 0.4 L, Triglycerides 112, Cholesterol 144, LDL Cholesterol 76, VLDL Cholesterol 22, HDL Cholesterol 46, PSA Screen 0.12 04/28/23 23:20: Urine Color Yellow, Urine Clarity Cloudy, Urine pH 6.0, Ur Specific Normal 1.015, Urine Protein 100 H, Urine Glucose (UA) Normal, Urine Ketones Negative, Urine Occult Blood 250 H, Urine Nitrite Positive H, Urine Bilirubin Negative, Urine Urobilinogen Normal, Ur Leukocyte Esterase 500 H, Urine RBC 5-10 SEEN, Urine WBC >100 SEEN, Ur Squamous Epith Cells 0 SEEN, Urine Bacteria 3+, Urine Mucus 0 SEEN 04/28/23 23:28: Urine Opiates Screen NEGATIVE, Urine Methadone Screen NEGATIVE, Ur Barbiturates Screen NEGATIVE, Ur Phencyclidine Scrn NEGATIVE, Ur Amphetamines Screen NEGATIVE, MDMA (Ecstasy) Screen NEGATIVE, U Benzodiazepines Scrn NEGATIVE, Urine Cocaine Screen NEGATIVE, U Cannabinoids Screen NEGATIVE, Ur Drug Screen Comment 04/29/23 01:40: Lactic Acid 1.0 04/29/23 06:41: WBC 13.7 H, RBC 3.00 L, Hgb 8.0 L, Hct 26.0 L, MCV 86.7, MCH 26.7 L, MCHC 30.8 L, RDW Std Deviation 45.7 H, RDW Coeff of Marta 14.3, Plt Count 191, MPV 9.4, Immature Gran % (Auto) 0.700, Neut % (Auto) 87.4 H, Lymph % (Auto) 3.9 L, [place] % (Auto) 7.9, Eos % (Auto) 0.0, Baso % (Auto) 0.1, Absolute Neuts (auto) 12.0 H, Absolute Lymphs (auto) 0.53 L, Nucleated RBC % 0, Differential Comment SCANNED, Sodium 132 L, Potassium 3.6, Chloride 103, Carbon Dioxide 23.0, Anion Gap 6, BUN 21 H, Creatinine 1.18, Estim Creat Clear Calc 48.98, Est GFR (MDRD) Af Amer 76, Est GFR (MDRD) Non-Af 63, BUN/Creatinine Ratio 17.8, Glucose 133 H, Calcium 7.9 L, Total Bilirubin 0.80, AST 32, ALT 19, Alkaline Phosphatase 66, Total Protein 7.0, Albumin 2.2 L, Globulin 4.8 H, Albumin/Globulin Ratio 0.5 L, TSH 0.53 Micro: Microbiology 04/28/23 22:45 Blood Culture (Wb) - Right Hand Bacteria Detection (PCR) - Final Staphylococcus aureus 04/28/23 22:45 Blood Culture (Wb) - Right Hand Blood Culture - Preliminary 04/28/23 22:35 Blood Culture (Wb) - Anticubital Left Blood Culture - Preliminary 04/28/23 23:04 Nasal Secretion SARS-CoV-2 & FLU Antigen (Rapid) - Final ABG Data ABG results: ABG 04/29/23 02:10 Specimen Type NATA Sample Site Not entered VBG pH 7.44 H VBG pO2 37 VBG HCO3 24 VBG Total CO2 25 VBG O2 Sat (Calc) 74 H VBG Base Excess 0 POC Mix VBG pCO2 Pt Tmp 34.9 L O2 Delivery Device Not entered Radiography Diagnostic Testing: Radiology Impression Chest X-Ray 04/28/23 22:59 IMPRESSION: Chest with no acute disease. Electronically Signed: Eric Soria MD at 23:21 EST , Physical Exam Const alert, oriented x3 and no apparent distress General Appearance: cooperative HEENT normocephalic, head/scalp atraumatic, moist oral mucous membranes and oropharynx normal Eyes PERRL and EOMs intact bilaterally Neck no lymphadenopathy and supple Lymph Lymphatic: no lymphadenopathy noted, no lymphedema noted and lymphedema Resp normal air movement and clear to auscultation bilaterally Effort and Inspection: tachypneic and respiratory distress Cardio regular rate, regular rhythm, S1 normal heart sound and S2 normal heart sound GI normal to inspection, nondistended, normoactive bowel sounds, soft to palpation, non-tender and non-distended Extremity normal capillary refill, no clubbing, cyanosis or edema and no calf tenderness General Extremity: no tenderness to palpation of joints or extremities Skin General Skin Exam: no breakdown Neuro CN's II-XII intact bilaterally, no focal motor deficits, no sensory deficits noted and deep tendon reflexes 2+ bilaterally Motor Exam: strength 5/5 throughout and general weakness Psych thought process normal and cooperative Appearance: appropriate Assessment & Plan Assessment/Plan (1) Acute kidney injury: (2) Urinary tract infection: QUALIFIERS: Urinary tract infection type: acute cystitis Hematuria presence: with hematuria Qualified Code(s): N30.01 - Acute cystitis with hematuria (3) Metabolic encephalopathy: PLAN: Plan #bacteremia in the setting of UTI Admitted with fever of 101 Fahrenheit and was tachycardic and had leukocytosis as well. Urinalysis showed evidence of UTI. Currently on IV Zosyn. 4 out of 4 blood cultures positive for gram-positive cocci. Will add on IV vancomycin. 2D echo ordered. ID consulted. #UTI: As above #Acute encephalopathy: Likely due to ZAHEER and bacteremia as well as UTI: Resolved. Patient is alert and communicative. #ZAHEER: Resolved. Creatinine is down to 1.18 from 1.46 on admission. #History of prostate cancer: Follow-up with urology on outpatient basis. #Debility and weakness likely due to cancer and acute infection: PT OT consulted. Fall precautions. #Benign essential hypertension. IV hydralazine as needed. Resume BP meds-metoprolol #BPH: On tamsulosin and finasteride #Hyperlipidemia: On statin #History of aortic stenosis: S/p TAVR. Stable. #GERD: On PPI DVT prophylaxis: Heparin Total time spent on evaluation and management of patient, reviewing chart, discussing plan with patient, discussion with nursing and ancillary staff as well as documentation: 40 mins Charges/Coding Visit Charges Inpatient E&M: 53715 [facility] Hosp L3
--- NOTE | 2023-04-29 13:35 | CASEMGMT ---
LILA BUSTOS Face to Face with patient for initial transition planning/care coordination assessment. LLIA BUSTOS introduced self and role at [facility]. Patient sitting in chair, alert and oriented. Patient willing to participate in assessment and is able to answer all questions appropriately. Care providers, pharmacy, and demographics verified. Patient wishes to discharge home, will monitor progress with therapy. Patient states he has no further needs or concerns at this time. CM to follow for discharge planning needs that may arise. PCP: James Specialists: [facility] Preferred Pharmacy: [facility] Insurance: [facility] Prescription Benefit: yes Living Will/HPOA: yes, daughter Laura Harris LNOK: , shweta Living Arrangements: Patient lives with in a 2 story home with bed and bath on first floor. Patient states he is independent at home. Transportation: self, DME/HHC: Patient has shower chair, raised toilet, cane, and rollator at home. Patient denies previous HHC or SNF RN JULI updated by therapy that patient would benefit from SNF at discharge. LILA BUSTOS updated SW. Disposition Plan: SNF pending acceptance. Aubree MCGRAW, RN, CM
[2023-04-29] MEDS: 0.9% Saline Lock 10 ML Syringe IV ×2 (15:21→21:42)
--- NOTE | 2023-04-29 15:56 | CASEMGMT ---
Addendum entered by Magaly Tsang 04/29/23 17:31: Daughter Laura is POA and reports she can bring a copy of advance directives for patient's record. Magaly MOSCOSO, LAURIE Original Note: Social Work SW notified that patient would benefit from SNF. SW verified hospice consult with nursing and patient is not appropriate for IPU currently and needs additional therapy. SW spoke with patient's daughter Laura who reports patient would not be safe to go home needs SNF placement. SW emailed a list according to patient's insurance and geographical location to patient's daughter. SW introduced self and role to patient. SW discussed the concern for needing more therapy. Pt reports he does not want to go but will review the list of SNF's provided. SW provided support. SW to follow up with choices for placement. Pt will likely be here through Monday due to the holiday weekend. Magaly MOSCOSO, LAURIE
--- NOTE | 2023-04-29 17:08 | PHA.PHARE_ITS ---
Consult Antibiotic Management Pharmacy has been consulted to manage selected antiobiotic: Vancomycin Type of Intervention Type of Consult: New start Suspected Infection Suspected Infection: Bacteremia Labs Labs: Sodium 132 mmol/L (136-145) L 04/29/23 06:41 Potassium 3.6 mmol/L (3.5-5.1) 04/29/23 06:41 Chloride 103 mmol/L (98-107) 04/29/23 06:41 Carbon Dioxide 23.0 mmol/L (21.0-32.0) 04/29/23 06:41 Anion Gap 6 (5-15) 04/29/23 06:41 BUN 21 mg/dL (7-18) H 04/29/23 06:41 Creatinine 1.18 mg/dL (0.70-1.30) 04/29/23 06:41 Est GFR (MDRD) Af Amer 76 mL/min (>60) 04/29/23 06:41 Est GFR (MDRD) Non-Af 63 mL/min (>60) 04/29/23 06:41 BUN/Creatinine Ratio 17.8 RATIO (10-20) 04/29/23 06:41 Glucose 133 mg/dL (74-106) H 04/29/23 06:41 Microbiology Microbiology: Microbiology 04/28/23 23:20 Urine Catheter - Catheter Urine Culture - Preliminary GNR lactose basic acoustic analyst 04/28/23 22:45 Blood Culture (Wb) - Right Hand Bacteria Detection (PCR) - Final Staphylococcus aureus 04/28/23 22:45 Blood Culture (Wb) - Right Hand Blood Culture - Preliminary 04/28/23 22:35 Blood Culture (Wb) - Anticubital Left Blood Culture - Preliminary 04/28/23 23:04 Nasal Secretion SARS-CoV-2 & FLU Antigen (Rapid) - Final Dosing Weight Weight used for dosin kg Estimated Creatinine Clearance Estimated Creatinine Clearance: 60ml/min Goal Trough Goal Trough: 15-20 mcg/mL Pharmacy Plan for Drug Dosing Pharmacy Plan for Drug Dosing: NEW START IV VANCOMYCIN Consulting Physician: Dr. Nair Indication: bacteremia/UTI Goal Trough: 15-20 SrCr: 1.18 CrCl: 60ml/min (using an adjusted body weight of 89kg) Comments: pt received a 2000mg (25mg/kg) loading dose on 04/29/23 at 1245 Vancomycin Dose: based on patients weight and renal function, recommend an initial dose of 1000mg q12h starting 12 hours after the loading dose. trough prior to the 4th total dose Pending Level: 05/01/23 at 0030 Pharmacy Service will continue to monitor and adjust dosing as required. Follow-Up Labs Follow-Up Labs: Trough: Vancomycin (05/01/23 at 0030)
[2023-04-29] MEDS: 0.9% Normal Saline (250mL Bag) 250 ML 15 ML IV (21:47)
[2023-04-29] MEDS: MELATONIN 3 MG TABLET PO (22:23)
[2023-04-30] VITALS (17 sets, daily range): BP systolic 97–169; BP diastolic 66–96; PULSE 90–139; RESP 14–21; TEMP 36.9–37.9; O2SAT 89–100
[2023-04-30] MEDS: Vancomycin IV 1,000 MG/200 ML BAG 200 MG IV ×2 (00:52→13:09)
[2023-04-30 05:51] LABS: Absolute Lymphocyte Count 0.85 X10^3/uL (0.83-4.51); Basophil# 0.02 X10^3/uL; Basophil% 0.2 % (0-1); Eosinophil# 0.15 X10^3/uL; Eosinophils% 1.7 % (0-5); Hematocrit 26.3 % (40-54); Hemoglobin 8.3 g/dL (13.0-16.5); Lymphocyte # 0.85 X10^3/ul (0.83-4.51); Lymphocyte % 9.4 % (19-41); Mean Corp Hgb Conc 31.6 g/dL (32-36); Mean Corpuscular Hgb 27.4 pg (27.0-32.0); Mean Corpuscular Volume 86.8 fL (80-94); Mean Platelet Vol. 9.3 fl (6.2-12.0); Monocyte# 0.99 X10^3/uL; Monocyte% 10.9 % (0-10); NRBC Flagged by Analyzer 0 % (0-5); Neutrophil # 7.03 X10^3/uL (2.7-7.7); Neutrophil % 77.4 % (47-70); Platelet Count 180 K/mm3 (150-450); RBC Distribution Width CV 14.5 % (11.6-14.6); RBC Distribution Width SD 46.4 fl (35.1-43.9); Red Blood Count 3.03 M/mm3 (4.6-6.2); White Blood Count 9.1 K/mm3 (4.4-11.0)
[2023-04-30] MEDS: Ondansetron ODT 4 MG Tablet PO (05:57)
[2023-04-30 06:10] LABS: Anion Gap 6 (5-15); BUN 23 mg/dL (7-18); Calcium,Total 8.1 mg/dL (8.5-10.1); Chloride 104 mmol/L (98-107); EST Glomerular Filtration Rate 76 mL/min (>60); Est Glom Filt Rate - Afr Amer 92 mL/min (>60); Estimated Creatinine Clearance 57.79 ml/min; Glucose 119 mg/dL (74-106); Potassium 3.6 mmol/L (3.5-5.1); Sodium Level 134 mmol/L (136-145)
--- NOTE | 2023-04-30 07:24 | ECHOTEE_ITS ---
Reason For Study: EMBOLI Medication KAROLINA probe 6VT-D (SN [id number]) passed without difficulty. No complications were noted. Cetacaine Topical [place] given X3 orally. Versed 1.0 mg given slow IVP. Fentanyl .25 mcg given slow IVP. Performed a rapid injection of agitated mix of 9 cc saline and 1cc air to assess for atrial septal defect. Left Ventricle Normal LV size. ECHO/Echo Transesophageal (KAROLINA) Interpretation Summary Transesophageal echocardiogram Patient sedated with 1 mg of Versed and 25 mcg of fentanyl. Mobile structure was noted proximal to the aortic valve Suspicious for vegetation The bioprosthetic aortic valve appears normal Mild aortic regurgitation noted Mitral, tricuspid valve showed no evidence of vegetation Bubble study performed with no intracardiac shunt Conclusion recommendation; Mobile structure noted proximal to the aortic valve suspicious for, to consider treatment for infective endocarditis Recommend repeat transthoracic echocardiogram following completion of antibioti c therapy Ordering Physician: Raina Nair Referring Physician: aDrrin Ramirez Performed By: Umm Espinosa, LACEY, RVT
[2023-04-30] MEDS: Acetaminophen 325 MG Tablet 650 MG PO (07:39)
[2023-04-30] MEDS: 0.9% Saline Lock 10 ML Syringe IV ×2 (07:45→09:21)
--- NOTE | 2023-04-30 07:50 | NURSING ---
called called/notified of stat troponin order
--- NOTE | 2023-04-30 08:56 | NURSING ---
house detective wm informed of Dr. flynn's request to transfer to u.
[2023-04-30] MEDS: Multivitamins,Ther W-Minerals Tablet 1 TABLET PO (09:12)
--- NOTE | 2023-04-30 09:20 | PN_ITS ---
Subjective Subjective Patient seen and examined. He said he was unable to sleep overnight. He also complained of some chest pain overnight, but denied any nausea, vomiting, fever or chills or any other symptoms. Review of systems is otherwise negative. Objective Data Objective Data Vital Signs: Vital Signs Temp Pulse Resp BP Pulse Ox O2 Del Method O2 Flow Rate 98.7 F 92 18 122/79 H 97 Nasal Cannula 2 04/30/23 09:09 04/30/23 09:09 04/30/23 09:09 04/30/23 09:09 04/30/23 09:09 04/30/23 09:09 04/30/23 09:09 Oxygen Flow Rate (L/min) 2 Oxygen Delivery Method Nasal Cannula Weight: 249 lb 6.4 oz Body Mass Index (BMI) 35.7 Intake & Output: Intake and Output for Last 24 Hours 04/28/23 04/29/23 04/30/23 23:59 23:59 23:59 Intake Total 4867 / 4867 633 / 633 Output Total 1600 / 1600 900 / 900 Balance 3267 / 3267 -267 / -267 Lab / Micro Data 04/30/23 04:50 04/30/23 04:50 Labs: Laboratory Results - last 24 hr 04/29/23 06:41: Differential Comment SCANNED 04/30/23 04:50: WBC 9.1, RBC 3.03 L, Hgb 8.3 L, Hct 26.3 L, MCV 86.8, MCH 27.4, MCHC 31.6 L, RDW Std Deviation 46.4 H, RDW Coeff of Marta 14.5, Plt Count 180, MPV 9.3, Immature Gran % (Auto) 0.400, Neut % (Auto) 77.4 H, Lymph % (Auto) 9.4 L, [place] % (Auto) 10.9 H, Eos % (Auto) 1.7, Baso % (Auto) 0.2, Absolute Neuts (auto) 7.0, Absolute Lymphs (auto) 0.85, Nucleated RBC % 0, Sodium 134 L, Potassium 3.6, Chloride 104, Carbon Dioxide 24.0, Anion Gap 6, BUN 23 H, Creatinine 1.00, Estim Creat Clear Calc 57.79, Est GFR (MDRD) Af Amer 92, Est GFR (MDRD) Non-Af 76, BUN/Creatinine Ratio 23.0 H, Glucose 119 H, Calcium 8.1 L Micro: Microbiology 04/28/23 22:45 Blood Culture (Wb) - Right Hand Bacteria Detection (PCR) - Final Staphylococcus aureus 04/28/23 22:45 Blood Culture (Wb) - Right Hand Blood Culture - Preliminary Staphylococcus aureus 04/28/23 22:35 Blood Culture (Wb) - Anticubital Left Blood Culture - Preliminary Staphylococcus aureus 04/28/23 23:20 Urine Catheter - Catheter Urine Culture - Preliminary GNR lactose cook apprentice pastry 04/28/23 23:04 Nasal Secretion SARS-CoV-2 & FLU Antigen (Rapid) - Final Radiography Diagnostic Testing: Radiology Impression Echocardiogram 04/29/23 10:31 Interpretation Summary The estimated ejection fraction is 55-60 %. Stage 2 diastolic dysfunction. The left atrium is mildly enlarged. Moderate mitral valve stenosis. Bioprosthetic aortic valve. Possible mobile mass on aortic valve measuring 2.1 x .5 cm. Recommend KAROLINA to assess for endocarditis. Ordering Physician: Raina Nair Performed By: Elizabeth Gómez RDCS Physical Exam Const alert, oriented x3, no apparent distress and average body habitus General Appearance: cooperative Orientation / Consciousness: confused and disoriented HEENT normocephalic, head/scalp atraumatic, hearing grossly normal bilaterally, moist oral mucous membranes and oropharynx normal Eyes PERRL, EOMs intact bilaterally and conjunctivae normal Neck no lymphadenopathy and supple Lymph Lymphatic: no lymphadenopathy noted, no lymphedema noted and lymphedema Resp normal respiratory effort, normal air movement, no retractions, no use of accessory muscles and clear to auscultation bilaterally Effort and Inspection: tachypneic and respiratory distress Cardio regular rate, regular rhythm, S1 normal heart sound and S2 normal heart sound GI normal to inspection, nondistended, normoactive bowel sounds, soft to palpation, non-tender and non-distended Extremity normal to inspection, full ROM, normal capillary refill, no clubbing, cyanosis or edema and no calf tenderness General Extremity: no tenderness to palpation of joints or extremities Skin General Skin Exam: no breakdown Neuro CN's II-XII intact bilaterally, moves all extremities, no focal motor deficits, no sensory deficits noted and deep tendon reflexes 2+ bilaterally Sensorium / Orientation: awake, alert and oriented to person Speech: speech normal Motor Exam: strength 5/5 throughout and general weakness Psych thought process normal, cooperative and affect normal Appearance: appropriate Assessment & Plan Assessment/Plan (1) Acute kidney injury: (2) Urinary tract infection: QUALIFIERS: Urinary tract infection type: acute cystitis Hematuria presence: with hematuria Qualified Code(s): N30.01 - Acute cystitis with hematuria (3) Metabolic encephalopathy: PLAN: Plan #bacteremia in the setting of UTI * Admitted with fever of 101 Fahrenheit and was tachycardic and had leukocytosis as well. * Urinalysis showed evidence of UTI. * 4 out of 4 blood cultures positive for gram-positive cocci. Will add on IV vancomycin. 2D echo ordered. * ID consulted. * cefepime discontinued in light of blood culture results * #Tachycardia and chest pain * patient complained of chest pain. but said the pain was generalised as well. * HR was up in the 130s. * will transfer to PCU. He is on metoprolol, which he has not been receiving during this admission. * Will therefore resume metoprolol * #UTI: As above #Acute encephalopathy: Likely due to ZAHEER and bacteremia as well as UTI: R esolved. Patient is alert and communicative. #ZAHEER: Resolved. #History of prostate cancer: Follow-up with urology on outpatient basis. #Debility and weakness likely due to cancer and acute infection: PT OT consulted. Fall precautions. #Benign essential hypertension. IV hydralazine as needed. On metoprolol #BPH: On tamsulosin and finasteride #Hyperlipidemia: On statin #History of aortic stenosis: S/p TAVR. Stable. #GERD: On PPI DVT prophylaxis: Heparin Total time spent on evaluation and management of patient, reviewing chart, discussing plan with patient, discussion with nursing and ancillary staff as well as documentation: 45 mins Charges/Coding Visit Charges Inpatient E&M: 32466 [facility] L3
[2023-04-30 09:44] LABS: Troponin-I HS 340 pg/mL (3.0-78.0)
--- NOTE | 2023-04-30 09:50 | NURSING ---
Mrs Baez update on pt's transfer to PCU
--- NOTE | 2023-04-30 09:55 | NURSING ---
report given to tony Kenny rn in pcu
[2023-04-30] MEDS: Pantoprazole Sodium 20 MG Tablet PO (10:14)
[2023-04-30] MEDS: Metoprolol(XL)Succ 50 MG Tablet PO (10:14)
[2023-04-30 10:45] LABS: Troponin-I HS 312 pg/mL (3.0-78.0)
[2023-04-30] MEDS: Tamsulosin HCl 0.4 MG Capsule 0.400000000000000022 MG PO (10:58)
[2023-04-30] MEDS: Finasteride 5 MG Tablet PO (10:59)
[2023-04-30] MEDS: Cholecalciferol (Vit D3) 125 MCG CAPSULE (5,000 UNITS) PO (10:59)
--- NOTE | 2023-04-30 12:33 | PCM.CONS.C ---
Assessment & Plan Assessment/Plan (1) History of transcatheter aortic valve replacement (TAVR): (2) Abnormal echocardiogram: (3) Atrial fibrillation with RVR: PLAN: Plan Also noted patient had A-fib with RVR and currently on rate control with Cardizem IV and metoprolol Addition to heparin. Will continue to monitor lab result as patient has anemia with history of prostate cancer and hematuria. HPI Consult Data Date of Consult: 04/30/23 HPI Narrative Reason for Consultation: Bacteremia/history of recent TAVR HPI Narrative: KEENA FRIED, is a 82 M who presents [facility] Medical History (Updated 04/30/23 @ 12:[address] Suresh Mendosa MD) Abnormal electrocardiogram Ambulates with cane Anemia Anemia Aortic stenosis Arthritis Atrial fibrillation Back pain BPH (benign prostatic hyperplasia) Cancer Cardiology follow-up encounter Chronic back pain Chronic indwelling Lockwood catheter Depression Diverticulosis DVT (deep venous thrombosis) Easy bruising Essential hypertension Gastric reflux GERD (gastroesophageal reflux disease) History of echocardiogram History of edema History of steroid therapy Hyperlipidemia Hypertension Inguinal hernia Irregular heart beat Kidney disease Kidney stones Leg cramps Loss of hearing Lung nodule Multiple premature ventricular complexes Non-smoker Nonrheumatic aortic (valve) stenosis Obesity Osteoarthritis Prostate cancer metastatic to bone Prostate disease Restless legs Wears glasses Wears hearing aid Home Medications acidophilus 25 million cell-pectin, citrus 100 mg tablet 1 tab PO DAILY probiotic 03/12/14 [History Last Taken 04/10/22] finasteride 5 mg tablet 5 mg PO DAILY BPH 03/21/22 [History Last Taken 04/10/22] cholecalciferol (vitamin D3) 125 mcg (5,000 unit) tablet (Vitamin D3) 125 mcg PO DAILY supplement 04/10/22 [History Last Taken 04/10/22] agprugzi-beo-fsjts acid 0.4 mg-lycopene 300 mcg-lutein 250 mcg tablet (Centrum Silver) 1 tab PO DAILY supplement 04/10/22 [History Last Taken 04/10/22] potassium chloride 20 mEq tablet,extended release 20 meq PO BID 06/21/22 [History Last Taken Unknown] albuterol sulfate 90 mcg/actuation aerosol inhaler 2 puff inhalation Q6H PRN shortness of breath or wheezing 10/12/22 [History Last Taken Unknown] metoprolol succinate 50 mg tablet,extended release 24 hr 50 mg PO DAILY 10/12/22 [History Last Taken Unknown] omeprazole 20 mg capsule,delayed release 20 mg PO DAILY 10/12/22 [History Last Taken Unknown] tamsulosin 0.4 mg capsule 0.4 mg PO DAILY BPH 10/12/22 [History Last Taken Unknown] ondansetron 4 mg disintegrating tablet 4 mg PO Q8H PRN PRN Nausea #10 tabs 04/25/23 [Rx Last Taken Unknown] oxycodone-acetaminophen 5 mg-325 mg tablet (Percocet) 1 tab PO Q8H PRN pain 7 days #15 tabs 04/27/23 [Rx Last Taken Unknown] Allergy/AdvReac Type Severity Reaction Status Date / Time No Known Allergies Allergy Verified 04/27/23 12:13 Family History Father Heart disease Surgical History (Updated 04/29/23 @ 02:30 by Lucretia Faye) Amputated toe History of AAA (abdominal aortic aneurysm) repair History of carpal tunnel release History of cystoscopy History of inguinal hernia repair History of left knee replacement History of total knee arthroplasty History of transcatheter aortic valve replacement (TAVR) (~09/26/22) Social History household members: spouse Smoking Status: Never smoker substance use type: does not use Physical Exam Cardio Cardio Narrative: 82-year-old patient seen and evaluated today at bedside Along with the nursing staff Family at [facility] admitted following a fall in his garage on Monday, About a week ago And he continued to have right hip pain and difficulty walking. Started treatment on IV antibiotics cefepime for UTI/ Review of lab results revealed bacteremia/leukocytosis with fever And repeat echocardiogram suspicious for small vegetation possible in the aortic valve Patient had a recent TAVR/September 2022 Prior to that he had a cardiac cath in August 2022 which showed moderate atherosclerosis of the mid LAD LV function preserved, mild luminal irregularity involving the left circumflex and RCA. Also noted he had mild elevation of cardiac biomarkers with high sensitive troponin 320s. In the setting of UTI and anemia Patient had a history of prostate cancer with hematuria in the past Cardiac care plan recommendation Review of the forming acid dumper showed underlying A-fib with RVR Patient currently on Cardizem infusion in addition to Toprol tartrate I started him on heparin Blood culture revealed gram-positive cocci ID consulted And patient currently on vancomycin Will evaluate the patient with the on Monday And we will continue to monitor the cardiac biomarkers high sensitive troponins. Will follow-up clinically during this admission. Suresh Mendosa MD,FAC,[facility] Risk Stratification Risk Stratification Applicable: No Objective Data Vital Signs: Vital Signs Temp Pulse Resp BP Pulse Ox O2 Del Method O2 Flow Rate 98.6 F 139 H 16 117/84 H 100 Nasal Cannula 2 04/30/23 10:03 04/30/23 10:14 04/30/23 10:03 04/30/23 10:14 04/30/23 10:03 04/30/23 10:03 04/30/23 10:03 Oxygen Flow Rate (L/min) 2 Oxygen Delivery Method Nasal Cannula Weight: 249 lb 6.4 oz Body Mass Index (BMI) 35.7 Intake & Output: Intake and Output for Last 24 Hours 04/28/23 04/29/23 04/30/23 23:59 23:59 23:59 Intake Total 4867 / 4867 633 / 633 Output Total 1600 / 1600 900 / 900 Balance 3267 / 3267 -267 / -267 Lab / Micro Data 04/30/23 04:50 04/30/23 04:50 Labs: Laboratory Results - last 24 hr 04/30/23 04:50: WBC 9.1, RBC 3.03 L, Hgb 8.3 L, Hct 26.3 L, MCV 86.8, MCH 27.4, MCHC 31.6 L, RDW Std Deviation 46.4 H, RDW Coeff of Marta 14.5, Plt Count 180, MPV 9.3, Immature Gran % (Auto) 0.400, Neut % (Auto) 77.4 H, Lymph % (Auto) 9.4 L, Dunn % (Auto) 10.9 H, Eos % (Auto) 1.7, Baso % (Auto) 0.2, Absolute Neuts (auto) 7.0, Absolute Lymphs (auto) 0.85, Nucleated RBC % 0, Sodium 134 L, Potassium 3.6, Chloride 104, Carbon Dioxide 24.0, Anion Gap 6, BUN 23 H, Creatinine 1.00, Estim Creat Clear Calc 57.79, Est GFR (MDRD) Af Amer 92, Est GFR (MDRD) Non-Af 76, BUN/Creatinine Ratio 23.0 H, Glucose 119 H, Calcium 8.1 L 04/30/23 08:24: Troponin I High Sens 340 H* 04/30/23 10:08: Troponin I High Sens 312 H* Micro: Microbiology 04/28/23 23:20 Urine Catheter - Catheter Urine Culture - Preliminary ESBL Escherichia coli 04/28/23 22:45 Blood Culture (Wb) - Right Hand Bacteria Detection (PCR) - Final Staphylococcus aureus 04/28/23 22:45 Blood Culture (Wb) - Right Hand Blood Culture - Preliminary Staphylococcus aureus 04/28/23 22:35 Blood Culture (Wb) - Anticubital Left Blood Culture - Preliminary Staphylococcus aureus Cardiology Labs/Tests 04/30/23 04:50: WBC 9.1, RBC 3.03 L, Hgb 8.3 L, Hct 26.3 L, MCV 86.8, MCH 27.4, MCHC 31.6 L, Plt Count 180, MPV 9.3, Immature Gran % (Auto) 0.400, Neut % (Auto) 77.4 H, Lymph % (Auto) 9.4 L, Dunn % (Auto) 10.9 H, Eos % (Auto) 1.7, Baso % (Auto) 0.2, Absolute Neuts (auto) 7.0, Nucleated RBC % 0, Sodium 134 L, Potassium 3.6, Chloride 104, Carbon Dioxide 24.0, Anion Gap 6, BUN 23 H, Creatinine 1.00, Est GFR (MDRD) Af Amer 92, Est GFR (MDRD) Non-Af 76, BUN/Creatinine Ratio 23.0 H, Glucose 119 H, Calcium 8.1 L Rhythm: EKG: ECHO: Stress Test: Cardiac Cath: PCI: CT Surgery: Holter monitor: EPS: PPM: CXR: Chest CT Scan: Radiography Diagnostic Testing: Radiology Impression Echocardiogram 04/29/23 10:31 Interpretation Summary The estimated ejection fraction is 55-60 %. Stage 2 diastolic dysfunction. The left atrium is mildly enlarged. Moderate mitral valve stenosis. Bioprosthetic aortic valve. Possible mobile mass on aortic valve measuring 2.1 x .5 cm. Recommend KAROLINA to assess for endocarditis. Ordering Physician: Raina Nair Performed By: Elizabeth Gómez RDCS
[2023-04-30] MEDS: dilTIAZem 25 MG/5 ML Vial 20 MG IV BOLUS (12:52)
[2023-04-30 13:29] LABS: Troponin-I HS 280 pg/mL (3.0-78.0)
[2023-04-30 13:58] LABS: International Normalized Ratio 1.1; Prothrombin Time (Protime)PT. 14.6 SECONDS (11.7-14.9)
[2023-04-30 13:59] LABS: Partial Thromboplast Time 30.3 Seconds (24.1-36.2)
[2023-04-30] MEDS: HEPARIN/D5w 25,000 UNITS 25,000 UNITS/250 ML IV.SOLN. 15 UNITS CONT INF (14:32)
[2023-04-30 20:49] LABS: Partial Thromboplast Time 61.4 Seconds (24.1-36.2)
[2023-04-30] MEDS: MELATONIN 3 MG TABLET PO (21:31)
[2023-04-30] MEDS: Diltiazem 125 MG in Dextrose 5%-Water (100mL Bag) 100 ML CONT INF (23:41)
[2023-05-01] VITALS (40 sets, daily range): BP systolic 105–158; BP diastolic 61–106; PULSE 82–130; RESP 15–32; TEMP 36.6–37; O2SAT 91–100
[2023-05-01 00:51] LABS: Vancomycin, Trough Level 9.3 ug/mL (5.0-15.0)
--- NOTE | 2023-05-01 01:16 | PCM.RX.CS ---
Consult Antibiotic Management Pharmacy has been consulted to manage selected antiobiotic: Vancomycin Type of Intervention Type of Consult: Follow-up Suspected Infection Suspected Infection: Bacteremia Labs Labs: Sodium 134 mmol/L (136-145) L 04/30/23 04:50 Potassium 3.6 mmol/L (3.5-5.1) 04/30/23 04:50 Chloride 104 mmol/L (98-107) 04/30/23 04:50 Carbon Dioxide 24.0 mmol/L (21.0-32.0) 04/30/23 04:50 Anion Gap 6 (5-15) 04/30/23 04:50 BUN 23 mg/dL (7-18) H 04/30/23 04:50 Creatinine 1.00 mg/dL (0.70-1.30) 04/30/23 04:50 Est GFR (MDRD) Af Amer 92 mL/min (>60) 04/30/23 04:50 Est GFR (MDRD) Non-Af 76 mL/min (>60) 04/30/23 04:50 BUN/Creatinine Ratio 23.0 RATIO (10-20) H 04/30/23 04:50 Glucose 119 mg/dL (74-106) H 04/30/23 04:50 Vancomycin Trough 9.3 ug/mL (5.0-15.0) 05/01/23 00:00 Microbiology Microbiology: Microbiology 04/30/23 08:24 Blood Culture (Wb) - Right Hand Blood Culture - Preliminary 04/28/23 23:20 Urine Catheter - Catheter Urine Culture - Preliminary ESBL Escherichia coli 04/28/23 22:45 Blood Culture (Wb) - Right Hand Bacteria Detection (PCR) - Final Staphylococcus aureus 04/28/23 22:45 Blood Culture (Wb) - Right Hand Blood Culture - Preliminary Staphylococcus aureus 04/28/23 22:35 Blood Culture (Wb) - Anticubital Left Blood Culture - Preliminary Staphylococcus aureus 04/28/23 23:04 Nasal Secretion SARS-CoV-2 & FLU Antigen (Rapid) - Final Dosing Weight Weight used for dosin kg Estimated Creatinine Clearance Estimated Creatinine Clearance: 70 Goal Trough Goal Trough: 15-20 mcg/mL Pharmacy Plan for Drug Dosing Pharmacy Plan for Drug Dosing: Vancomycin trough level of 9.3, drawn 11hrs post-dose, was below the target range of 15-20. Will initiate a new dose of 1500mg q12h, and will draw another trough prior to the fourth dose of the new regimen. Pharmacy Service will continue to monitor and adjust dosing as required. Follow-Up Labs Follow-Up Labs: Trough: Vancomycin Date/Time Labs Ordered Labs to be done on [date and time ordered]: 05/02/23 @1230
[2023-05-01] MEDS: Vancomycin HCl 1,500 MG in 0.9% Normal Saline (500mL Bag) 500 ML 250 MG IV ×2 (01:35→12:28)
[2023-05-01 02:59] LABS: Absolute Lymphocyte Count 1.18 X10^3/uL (0.83-4.51); Absolute Neutrophil Count 6.1 X10^3/uL (2.0-7.7); Basophil# 0.04 X10^3/uL; Basophil% 0.5 % (0-1); Eosinophil# 0.16 X10^3/uL; Eosinophils% 1.8 % (0-5); Hematocrit 27.2 % (40-54); Hemoglobin 8.4 g/dL (13.0-16.5); Lymphocyte # 1.18 X10^3/ul (0.83-4.51); Lymphocyte % 13.5 % (19-41); Mean Corp Hgb Conc 30.9 g/dL (32-36); Mean Corpuscular Hgb 26.7 pg (27.0-32.0); Mean Corpuscular Volume 86.3 fL (80-94); Mean Platelet Vol. 9.8 fl (6.2-12.0); Monocyte% 13.8 % (0-10); NRBC Flagged by Analyzer 0 % (0-5); Neutrophil # 6.09 X10^3/uL (2.7-7.7); Neutrophil % 69.8 % (47-70); Platelet Count 199 K/mm3 (150-450); RBC Distribution Width CV 14.5 % (11.6-14.6); RBC Distribution Width SD 45.2 fl (35.1-43.9); Red Blood Count 3.15 M/mm3 (4.6-6.2); White Blood Count 8.7 K/mm3 (4.4-11.0)
[2023-05-01 03:11] LABS: Partial Thromboplast Time 45.7 Seconds (24.1-36.2)
[2023-05-01 03:12] LABS: Anion Gap 8 (5-15); BUN 19 mg/dL (7-18); Calcium,Total 7.9 mg/dL (8.5-10.1); Chloride 103 mmol/L (98-107); Creatinine, Serum 0.86 mg/dL (0.70-1.30); EST Glomerular Filtration Rate 90 mL/min (>60); Est Glom Filt Rate - Afr Amer 108 mL/min (>60); Glucose 124 mg/dL (74-106); Potassium 3.9 mmol/L (3.5-5.1); Sodium Level 134 mmol/L (136-145)
[2023-05-01] MEDS: Heparin Injection (Vial) 5,000 UNIT/ML VIAL IV (03:28)
[2023-05-01] MEDS: HEPARIN/D5w 25,000 UNITS 25,000 UNITS/250 ML IV.SOLN. 15 UNITS CONT INF (03:29)
[2023-05-01] MEDS: Digoxin 250 MCG/ML Ampul IV (05:35)
[2023-05-01] MEDS: Diltiazem 125 MG in Dextrose 5%-Water (100mL Bag) 100 ML 15 MG CONT INF ×3 (06:54→23:23)
[2023-05-01 07:12] LABS: Troponin-I HS 210 pg/mL (3.0-78.0)
[2023-05-01] MEDS: Multivitamins,Ther W-Minerals Tablet 1 TABLET PO (08:52)
[2023-05-01] MEDS: Metoprolol(XL)Succ 50 MG Tablet PO (08:52)
[2023-05-01] MEDS: Tamsulosin HCl 0.4 MG Capsule 0.400000000000000022 MG PO (08:52)
[2023-05-01] MEDS: Cholecalciferol (Vit D3) 125 MCG CAPSULE (5,000 UNITS) PO (08:53)
[2023-05-01] MEDS: Finasteride 5 MG Tablet PO (08:53)
[2023-05-01] MEDS: Pantoprazole Sodium 20 MG Tablet PO (08:56)
[2023-05-01 10:29] LABS: Partial Thromboplast Time 44.3 Seconds (24.1-36.2)
--- NOTE | 2023-05-01 10:50 | PN_ITS ---
Subjective Subjective Patient seen and examined. He had no active complaints. He had an uneventful night. Review of systems otherwise negative. Objective Data Objective Data Vital Signs: Vital Signs Temp Pulse Resp BP Pulse Ox O2 Del Method O2 Flow Rate 98.5 F 87 18 128/77 H 99 Room Air 2 05/01/23 08:50 05/01/23 10:00 05/01/23 10:00 05/01/23 10:00 05/01/23 10:00 05/01/23 10:00 04/30/23 10:03 Oxygen Flow Rate (L/min) 2 Oxygen Delivery Method Room Air Weight: 249 lb 6.4 oz Body Mass Index (BMI) 35.7 Intake & Output: Intake and Output for Last 24 Hours 04/29/23 04/30/23 05/01/23 23:59 23:59 23:59 Intake Total 4867 / 4867 1234.42 / 1234.59 975.17 / 975.17 Output Total 1600 / 1600 1500 / 1500 650 / 650 Balance 3267 / 3267 -265.58 / -265.41 325.17 / 325.17 Lab / Micro Data 05/01/23 02:50 05/01/23 02:50 Labs: Laboratory Results - last 24 hr 04/30/23 13:00: Troponin I High Sens 280 H* 04/30/23 13:41: PT 14.6, INR 1.1, APTT 30.3 04/30/23 20:25: APTT 61.4 H 05/01/23 00:00: Vancomycin Trough 9.3 05/01/23 02:50: WBC 8.7, RBC 3.15 L, Hgb 8.4 L, Hct 27.2 L, MCV 86.3, MCH 26.7 L , MCHC 30.9 L, RDW Std Deviation 45.2 H, RDW Coeff of Marta 14.5, Plt Count 199, MPV 9.8, Immature Gran % (Auto) 0.600, Neut % (Auto) 69.8, Lymph % (Auto) 13.5 L , Tillman % (Auto) 13.8 H, Eos % (Auto) 1.8, Baso % (Auto) 0.5, Absolute Neuts (auto) 6.1, Absolute Lymphs (auto) 1.18, Nucleated RBC % 0, APTT 45.7 H, Sodium 134 L, Potassium 3.9, Chloride 103, Carbon Dioxide 23.0, Anion Gap 8, BUN 19 H, Creatinine 0.86, Estim Creat Clear Calc 67.20, Est GFR (MDRD) Af Amer 108, Est GFR (MDRD) Non-Af 90, BUN/Creatinine Ratio 22.0 H, Glucose 124 H, Calcium 7.9 L, Troponin I High Sens 210 H* 05/01/23 10:00: APTT 44.3 H Micro: Microbiology 04/28/23 23:20 Urine Catheter - Catheter Urine Culture - Final Escherichia coli 04/30/23 08:24 Blood Culture (Wb) - Anticubital Right Bacteria Detection (PCR) - Final 04/28/23 22:35 Blood Culture (Wb) - Anticubital Left Blood Culture - Final Staphylococcus aureus 04/28/23 22:45 Blood Culture (Wb) - Right Hand Bacteria Detection (PCR) - Final Staphylococcus aureus 04/28/23 22:45 Blood Culture (Wb) - Right Hand Blood Culture - Final Staphylococcus aureus 04/30/23 08:20 Blood Culture (Wb) - Anticubital Right Blood Culture - Preliminary 04/30/23 08:24 Blood Culture (Wb) - Right Hand Blood Culture - Preliminary 04/28/23 23:04 Nasal Secretion SARS-CoV-2 & FLU Antigen (Rapid) - Final Physical Exam Const alert, oriented x3, no apparent distress and average body habitus General Appearance: cooperative Orientation / Consciousness: confused and disoriented HEENT normocephalic, head/scalp atraumatic, hearing grossly normal bilaterally, moist oral mucous membranes and oropharynx normal Eyes PERRL, EOMs intact bilaterally and conjunctivae normal Neck no lymphadenopathy and supple Lymph Lymphatic: no lymphadenopathy noted, no lymphedema noted and lymphedema Resp normal respiratory effort, normal air movement, no retractions, no use of accessory muscles and clear to auscultation bilaterally Effort and Inspection: tachypneic and respiratory distress Cardio regular rate, regular rhythm, S1 normal heart sound and S2 normal heart sound GI normal to inspection, nondistended, normoactive bowel sounds, soft to palpation, non-tender and non-distended Extremity normal to inspection, full ROM, normal capillary refill, no clubbing, cyanosis or edema and no calf tenderness General Extremity: no tenderness to palpation of joints or extremities Skin Skin Narrative: Patient has no evidence of rash at this time. General Skin Exam: no breakdown Neuro CN's II-XII intact bilaterally, moves all extremities, no focal motor deficits, no sensory deficits noted and deep tendon reflexes 2+ bilaterally Sensorium / Orientation: awake, alert and oriented to person Speech: speech normal Motor Exam: strength 5/5 throughout and general weakness Psych thought process normal, cooperative and affect normal Appearance: appropriate Assessment & Plan Assessment/Plan (1) Acute kidney injury: (2) Urinary tract infection: QUALIFIERS: Urinary tract infection type: acute cystitis Hematuria presence: with hematuria Qualified Code(s): N30.01 - Acute cystitis with hematuria (3) Metabolic encephalopathy: PLAN: Plan #bacteremia in the setting of UTI * Admitted with fever of 101 Fahrenheit and was tachycardic and had leukocytosis as well. * Urinalysis showed evidence of UTI. * 4 out of 4 blood cultures positive for gram-positive cocci. Will add on IV vancomycin. 2D echo ordered. * ID consulted. * cefepime discontinued in light of blood culture results * #Infective endocarditis * blood cultures positive for Staph aureus * 2D echo showed a bioprosthetic aortic valve with possible mobile mass on aortic valve measuring 2.1 x 0.5cm * on IV vancomycin. zosyn discontinued * repeat blood cultures pending. * ID consulted * for KAROLINA tomorrow * #Afib with RVR * patient complained of chest pain. but said the pain was generalised as well. * HR was up in the 130s and he was in afib with RVR * transferred to PCU. He was initially put back on metoprolol, however he had to be put on cardizem drip. * cardiology on board * troponins were also elevated; he was started on heparin drip per cardiology. * 2D echo showed evidence of moderate concentric LVH with normal LVSF and EF of 55-60%, as well as no regional wall motion abnormalities. * management as per cardiology * #Nonstemi * Patient complained of some chest pain yesterday. Initial troponin was 340 but trended down to 210. * 2D echo as above. Cardiology on board and patient currently on heparin drip. Cardiology thinks is likely due to his A-fib with RVR. * #UTI: As above #Acute encephalopathy: resolved. #ZAHEER: Resolved. #History of prostate cancer: Follow-up with urology on outpatient basis. #Debility and weakness likely due to cancer and acute infection: PT OT consulted. Fall precautions. #Benign essential hypertension. IV hydralazine as needed. On metoprolol #BPH: On tamsulosin and finasteride #Hyperlipidemia: On statin #History of aortic stenosis: S/p TAVR. Stable. #GERD: On PPI DVT prophylaxis: Heparin Total time spent on evaluation and management of patient, reviewing chart, di scussing plan with patient, discussion with nursing and ancillary staff as well as documentation: 40 mins Charges/Coding Visit Charges Inpatient E&M: 89984 Subs Hosp L2
--- NOTE | 2023-05-01 15:05 | PCM.PN.CARD ---
Subjective Subjective Seen and evaluated today at bedside Family were at bedside at the time of evaluation No symptoms reported, in particular no chest pain. Objective Data Vital Signs: Vital Signs Temp Pulse Resp BP Pulse Ox O2 Del Method O2 Flow Rate 98.5 F 84 16 138/97 H 99 Room Air 2 05/01/23 08:50 05/01/23 14:00 05/01/23 14:00 05/01/23 14:00 05/01/23 14:00 05/01/23 13:00 04/30/23 10:03 Oxygen Flow Rate (L/min) 2 Oxygen Delivery Method Room Air Weight: 249 lb 6.4 oz Body Mass Index (BMI) 35.7 Intake & Output: Intake and Output for Last 24 Hours 04/29/23 04/30/23 05/01/23 23:59 23:59 23:59 Intake Total 4867 / 4867 1234.42 / 1234.59 1964.17 / 1964.17 Output Total 1600 / 1600 1500 / 1500 650 / 650 Balance 3267 / 3267 -265.58 / -265.41 1314.17 / 1314.17 Lab / Micro Data 05/01/23 02:50 05/01/23 02:50 Labs: Laboratory Results - last 24 hr 04/30/23 20:25: APTT 61.4 H 05/01/23 00:00: Vancomycin Trough 9.3 05/01/23 02:50: WBC 8.7, RBC 3.15 L, Hgb 8.4 L, Hct 27.2 L, MCV 86.3, MCH 26.7 L, MCHC 30.9 L, RDW Std Deviation 45.2 H, RDW Coeff of Marta 14.5, Plt Count 199, MPV 9.8, Immature Gran % (Auto) 0.600, Neut % (Auto) 69.8, Lymph % (Auto) 13.5 L, [place] % (Auto) 13.8 H, Eos % (Auto) 1.8, Baso % (Auto) 0.5, Absolute Neuts (auto) 6.1, Absolute Lymphs (auto) 1.18, Nucleated RBC % 0, APTT 45.7 H, Sodium 134 L, Potassium 3.9, Chloride 103, Carbon Dioxide 23.0, Anion Gap 8, BUN 19 H, Creatinine 0.86, Estim Creat Clear Calc 67.20, Est GFR (MDRD) Af Amer 108, Est GFR (MDRD) Non-Af 90, BUN/Creatinine Ratio 22.0 H, Glucose 124 H, Calcium 7.9 L, Troponin I High Sens 210 H* 05/01/23 10:00: APTT 44.3 H Micro: Microbiology 04/28/23 23:20 Urine Catheter - Catheter Urine Culture - Final Escherichia coli 04/30/23 08:24 Blood Culture (Wb) - Anticubital Right Bacteria Detection (PCR) - Final 04/28/23 22:35 Blood Culture (Wb) - Anticubital Left Blood Culture - Final Staphylococcus aureus 04/28/23 22:45 Blood Culture (Wb) - Right Hand Bacteria Detection (PCR) - Final Staphylococcus aureus 04/28/23 22:45 Blood Culture (Wb) - Right Hand Blood Culture - Final Staphylococcus aureus 04/30/23 08:20 Blood Culture (Wb) - Anticubital Right Blood Culture - Preliminary 04/30/23 08:24 Blood Culture (Wb) - Right Hand Blood Culture - Preliminary Cardiology Labs/Tests 04/30/23 20:25: APTT 61.4 H 05/01/23 02:50: WBC 8.7, RBC 3.15 L, Hgb 8.4 L, Hct 27.2 L, MCV 86.3, MCH 26.7 L, MCHC 30.9 L, Plt Count 199, MPV 9.8, Immature Gran % (Auto) 0.600, Neut % (Auto) 69.8, Lymph % (Auto) 13.5 L, [place] % (Auto) 13.8 H, Eos % (Auto) 1.8, Baso % (Auto) 0.5, Absolute Neuts (auto) 6.1, Nucleated RBC % 0, APTT 45.7 H, Sodium 134 L, Potassium 3.9, Chloride 103, Carbon Dioxide 23.0, Anion Gap 8, BUN 19 H, Creatinine 0.86, Est GFR (MDRD) Af Amer 108, Est GFR (MDRD) Non-Af 90, BUN/Creatinine Ratio 22.0 H, Glucose 124 H, Calcium 7.9 L 05/01/23 10:00: APTT 44.3 H Rhythm: EKG: ECHO: Stress Test: Cardiac Cath: PCI: CT Surgery: Holter monitor: EPS: PPM: CXR: Chest CT Scan: Physical Exam Cardio Cardio Narrative: Underlying cardiac rhythm is A-fib with controlled ventricular rate Cardiovascular exam S1-S2 is irregular Chest exam; mild bilateral basal rales Assessment & Plan Assessment/Plan (1) History of transcatheter aortic valve replacement (TAVR): (2) Hyperlipidemia: (3) Essential hypertension: (4) Fall: (5) Atrial fibrillation with RVR: PLAN: Plan 82-year-old patient, seen and evaluated today at bedside Family were at bedside at time of evaluation. With history of TAVR Has bacteremia in the setting of UTI With gram-positive cocci. Staph aureus Currently been on IV vancomycin Underlying cardiac rhythm is A-fib better controlled rate on the current treatment Also has mild elevation of high sensitive troponin In the setting of UTI consistent with type II NJ with demand myocardial ischemia I reviewed the results of the high sensitive troponin high which trended down from 3 40-210 And the echocardiographic evaluation showed no evidence of wall motion abnormality with preserved LV systolic function Ejection fraction of around 55 to 60% Suspicious for small valvular vegetation in the aortic valve/bioprosthetic/TAVR. Cardiac care plan recommendations; will evaluate this patient further with a KAROLINA tomorrow For valvular vegetation, ID consultation to monitor antibiotic as well as blood cultures follow-up. Will continue to monitor and follow-up clinic
[2023-05-01] MEDS: HEPARIN/D5w 25,000 UNITS 25,000 UNITS/250 ML IV.SOLN. 17 UNITS CONT INF (17:48)
[2023-05-01 17:50] LABS: Partial Thromboplast Time > 200.0 Seconds (24.1-36.2)
--- NOTE | 2023-05-01 17:57 | NURSING ---
PTT greater than 200, heparin drip paused for 2 hours per protocal.
[2023-05-02] VITALS (25 sets, daily range): BP systolic 117–171; BP diastolic 69–111; PULSE 79–139; RESP 19–28; TEMP 36.4–37; O2SAT 90–97
[2023-05-02] MEDS: Vancomycin HCl 1,500 MG in 0.9% Normal Saline (500mL Bag) 500 ML 250 MG IV (01:12)
[2023-05-02 03:18] LABS: Absolute Neutrophil Count 6.1 X10^3/uL (2.0-7.7); Basophil# 0.04 X10^3/uL; Basophil% 0.4 % (0-1); Eosinophil# 0.24 X10^3/uL; Eosinophils% 2.7 % (0-5); Hematocrit 28.3 % (40-54); Hemoglobin 8.9 g/dL (13.0-16.5); Lymphocyte % 15.6 % (19-41); Mean Corp Hgb Conc 31.4 g/dL (32-36); Mean Corpuscular Hgb 27.1 pg (27.0-32.0); Mean Platelet Vol. 9.4 fl (6.2-12.0); Monocyte# 1.04 X10^3/uL; Monocyte% 11.6 % (0-10); NRBC Flagged by Analyzer 0 % (0-5); Neutrophil # 6.13 X10^3/uL (2.7-7.7); Neutrophil % 68.6 % (47-70); Platelet Count 246 K/mm3 (150-450); RBC Distribution Width CV 14.6 % (11.6-14.6); RBC Distribution Width SD 46.5 fl (35.1-43.9); Red Blood Count 3.29 M/mm3 (4.6-6.2)
[2023-05-02 03:32] LABS: Anion Gap 7 (5-15); BUN 18 mg/dL (7-18); BUN/Creat Ratio 19.7 RATIO (10-20); Calcium,Total 8.2 mg/dL (8.5-10.1); Chloride 103 mmol/L (98-107); Creatinine, Serum 0.91 mg/dL (0.70-1.30); EST Glomerular Filtration Rate 84 mL/min (>60); Est Glom Filt Rate - Afr Amer 102 mL/min (>60); Estimated Creatinine Clearance 63.51 ml/min; Glucose 113 mg/dL (74-106); Potassium 3.7 mmol/L (3.5-5.1); Sodium Level 135 mmol/L (136-145)
[2023-05-02 03:33] LABS: Partial Thromboplast Time 45.7 Seconds (24.1-36.2)
[2023-05-02] MEDS: Metoprolol(XL)Succ 50 MG Tablet PO ×2 (05:08→23:14)
[2023-05-02] MEDS: Diltiazem 125 MG in Dextrose 5%-Water (100mL Bag) 100 ML 15 MG CONT INF (07:03)
--- NOTE | 2023-05-02 07:30 | NURSING ---
heparin drip paused per MD for procedure
--- NOTE | 2023-05-02 07:46 | CT_ITS ---
STUDY: CTA CHEST REASON FOR EXAM: Male, 82 years old. shortness of breath RADIATION DOSAGE (If Supplied By Facility): CTDIvol = ( 23.10 ) mGy, DLP = ( 606.07 ) mGycm TECHNIQUE: The examination was performed with the intravenous administration of IV 100mL Isovue-370. Post-processing of the angiographic images was performed, with multiplanar reformation and 3D reconstruction. Individualized dose optimization techniques were used for this CT. COMPARISON: None. FINDINGS: Normal enhancement of the main pulmonary artery and right and left pulmonary arteries. Normal enhancement of the right peripheral pulmonary arteries, there are subtle filling defects noted within distal branches leading to the left lower lobe on axial images 80-89 consistent with PE in distal branches leading to the left lower lobe. There is no right heart strain,. Normal thoracic aorta and visualized great vessels. There is no demonstrated aortic dissection. Aortic valve stent noted. Calcified coronary vessels noted. No suspicious bulky axillary or perihilar lymph nodes, there are likely reactive AP window and subcarinal lymph nodes identified. These nodes measure up to 1.5 cm in short axis dimension. Lung windows show chronic interstitial changes in both lung yeh. There is evidence of chronic bronchitis along with small bilateral pleural effusions and bibasilar atelectasis. There is a pleural-based 0.6 cm noncalcified nodule in the left upper lobe on axial image 159 which is stable compared to previous CT abdomen and pelvis from 11/29/2022. Given the patient''s age, no specific follow-up is needed unless there is high clinical suspicion Normal chest wall structures. Degenerative bony changes noted with a nonspecific sclerotic focus in a couple of the thoracic vertebral bodies. Limited cuts through the upper abdomen do not show a suspicious abnormality CT/CTA Chest W/WO Contrast IMPRESSION: Evidence of PE within distal branches leading to the left lower lobe. No proximal PE noted. There is no right heart strain. No thoracic aortic aneurysm or dissection Chronic interstitial changes in both lung yeh with chronic bronchitis, small pleural effusions and bibasilar atelectasis Borderline enlarged likely reactive mediastinal and subcarinal adenopathy Stable 6 mm noncalcified nodule in the left upper lobe, given the patient''s age, no specific follow-up is needed unless there is high clinical suspicion of neoplastic process N.B. : The above Results were Read Back by Remington Garcia MD to Raina Nair MD, and understanding confirmed on 05/02/2023 09:44:00 (ET). Electronically Signed: Remington Garcia MD at 9:45 EST ,
--- NOTE | 2023-05-02 09:12 | PN.CARD_ITS ---
Documented by User: GABRIELA Tsang 05/02/23 10:45 Subjective Subjective Pt seen and examined today. He denies CP/SOB. He does not recall hx of Afib. He is not aware of palpitations. He will undergo a KAROLINA today Objective Data Vital Signs: Vital Signs Temp Pulse Resp BP Pulse Ox O2 Del Method O2 Flow Rate 98.6 F 90 24 H 117/75 93 Room Air 2 05/02/23 08:00 05/02/23 08:00 05/02/23 08:00 05/02/23 08:00 05/02/23 07:00 05/02/23 08:00 05/02/23 06:00 Oxygen Flow Rate (L/min) 2 Oxygen Delivery Method Room Air Weight: 249 lb 6.4 oz Body Mass Index (BMI) 35.7 Intake & Output: Intake and Output for Last 24 Hours 04/30/23 05/01/23 05/02/23 23:59 23:59 23:59 Intake Total 1234.42 / 1234.59 2457.77 / 2467.02 866.77 / 866.77 Output Total 1500 / 1500 1700 / 1700 850 / 850 Balance -265.58 / -265.41 757.77 / 767.02 16.77 / 16.77 Lab / Micro Data 05/02/23 02:57 05/02/23 02:57 Labs: Laboratory Results - last 24 hr 05/01/23 10:00: APTT 44.3 H 05/01/23 16:45: APTT > 200.0 H* 05/02/23 02:57: WBC 9.0, RBC 3.29 L, Hgb 8.9 L, Hct 28.3 L, MCV 86.0, MCH 27.1, MCHC 31.4 L, RDW Std Deviation 46.5 H, RDW Coeff of Marta 14.6, Plt Count 246, MPV 9.4, Immature Gran % (Auto) 1.100 H, Neut % (Auto) 68.6, Lymph % (Auto) 15.6 L, [place] % (Auto) 11.6 H, Eos % (Auto) 2.7, Baso % (Auto) 0.4, Absolute Neuts (auto) 6.1, Absolute Lymphs (auto) 1.40, Nucleated RBC % 0, APTT 45.7 H, Sodium 135 L, Potassium 3.7, Chloride 103, Carbon Dioxide 25.0, Anion Gap 7, BUN 18, Creatinine 0.91, Estim Creat Clear Calc 63.51, Est GFR (MDRD) Af Amer 102, Est GFR (MDRD) Non-Af 84, BUN/Creatinine Ratio 19.7, Glucose 113 H, Calcium 8.2 L Micro: Microbiology 04/30/23 08:20 Blood Culture (Wb) - Anticubital Right Blood Culture - Preliminary Staphylococcus aureus 04/30/23 08:24 Blood Culture (Wb) - Right Hand Blood Culture - Preliminary Staphylococcus aureus 04/28/23 23:20 Urine Catheter - Catheter Urine Culture - Final Escherichia coli 04/30/23 08:24 Blood Culture (Wb) - Anticubital Right Bacteria Detection (PCR) - Final 04/28/23 22:35 Blood Culture (Wb) - Anticubital Left Blood Culture - Final Staphylococcus aureus 04/28/23 22:45 Blood Culture (Wb) - Right Hand Bacteria Detection (PCR) - Final Staphylococcus aureus 04/28/23 22:45 Blood Culture (Wb) - Right Hand Blood Culture - Final Staphylococcus aureus Cardiology Labs/Tests 05/01/23 10:00: APTT 44.3 H 05/01/23 16:45: APTT > 200.0 H* 05/02/23 02:57: WBC 9.0, RBC 3.29 L, Hgb 8.9 L, Hct 28.3 L, MCV 86.0, MCH 27.1, MCHC 31.4 L, Plt Count 246, MPV 9.4, Immature Gran % (Auto) 1.100 H, Neut % (Auto) 68.6, Lymph % (Auto) 15.6 L, [place] % (Auto) 11.6 H, Eos % (Auto) 2.7, Baso % (Auto) 0.4, Absolute Neuts (auto) 6.1, Nucleated RBC % 0, APTT 45.7 H, Sodium 135 L, Potassium 3.7, Chloride 103, Carbon Dioxide 25.0, Anion Gap 7, BUN 18, Creatinine 0.91, Est GFR (MDRD) Af Amer 102, Est GFR (MDRD) Non-Af 84, BUN/Creatinine Ratio 19.7, Glucose 113 H, Calcium 8.2 L Rhythm: Afib Physical Exam Const alert, oriented x3 and no apparent distress HEENT normocephalic, head/scalp atraumatic, hearing grossly normal bilaterally, exter nal ears normal, external nose normal and moist oral mucous membranes Eyes PERRL, EOMs intact bilaterally, conjunctivae normal and no scleral icterus Neck no lymphadenopathy, supple and no JVD Resp normal respiratory effort and clear to auscultation bilaterally Cardio Rate: regular rate Rhythm: abnormal rhythm irregularly irregular Heart Sounds: S1 normal, S2 normal and murmur systolic I/ soft GI normal to inspection, nondistended, normoactive bowel sounds, soft to palpation, non-tender and non-distended Extremity normal to inspection, normal capillary refill, no clubbing, cyanosis or edema and no pedal edema Neuro oriented x3, CN's II-XII intact bilaterally, moves all extremities and no focal motor deficits Psych cooperative and affect normal Assessment & Plan Assessment/Plan (1) History of transcatheter aortic valve replacement (TAVR): (2) Hyperlipidemia: (3) Essential hypertension: (4) Fall: (5) Atrial fibrillation with RVR: PLAN: Plan * Pt underwent KAROLINA today for concerns vegetation on TAVR. This was negative. B lood cultures are pending, preliminary demonstrates gram-positive cocci, Staph aureus. He is on antibiotics. * Atrial fibrillation is a new finding for patient. Heart rate is better controlled. Will stop his IV Cardizem switch him over to p.o. He will continue with his metoprolol. He will be started on Eliquis as he does have a [id number] 2 of 4. * In regards to his elevated troponin feel that this is a type II DE at this time do not feel that any additional cardiac workup needs to be done for ischemia. Charges/Coding Visit Charges Inpatient E&M: 25307 Subs Hosp L2 Documented by User: Dr. Suresh Mendosa MD 05/02/23 15:25 Subjective Subjective Pt seen and examined today. He denies CP/SOB. He does not recall hx of Afib. He is not aware of palpitations. KAROLINA was performed today and evaluated the aortic valve which showed small echogenic structure proximal to the aortic valve Suspicious for vegetation. No significant aortic regurgitation. Lab / Micro Data 05/02/23 02:57 05/02/23 02:57 Assessment & Plan Assessment/Plan (1) History of transcatheter aortic valve replacement (TAVR): (2) Hyperlipidemia: (3) Essential hypertension: (4) Fall: (5) Atrial fibrillation with RVR: PLAN: Plan * Pt underwent KAROLINA today for concerns vegetation on TAVR. Finding of KAROLINA revealed small echogenic structure proximal to the aortic valve suggestive of vegetation Blood cultures are pending, preliminary demonstrates gram-positive cocci, Staph aureus. He is on antibiotics. * Atrial fibrillation is a new finding for patient. Heart rate is better controlled. Will stop his IV Cardizem switch him over to p.o. He will continue with his metoprolol. He will be started on Eliquis as he does have a [id number] 2 of 4. * In regards to his elevated troponin feel that this is a type II DE at this time do not feel that any additional cardiac workup needs to be done for ischemia. Cardiac care plan recommendation Patient with a bioprosthetic aortic valve With the MSSA bacteremia with Staph aureus Abnormal transesophageal echocardiographic findings I would recommend to treat as infective endocarditis to complete the duration of therapy And repeat echocardiogram in 6 weeks after completion of therapy to assess the bioprosthetic aortic valve. From cardiac standpoint we will sign off and will be available if further need arise Patient to follow-up with his primary family counselor at [facility]. Dr. Coto
[2023-05-02] MEDS: Ceftriaxone 1 GM/50 ML BAG IV (09:39)
--- NOTE | 2023-05-02 09:49 | PN_ITS ---
Subjective Subjective Patient seen and examined. He has no active complaints. He remains tachypneic and tachycardic. Review of systems is otherwise negative. He is due for KAROLINA today. Heparin drip was held this morning. Objective Data Objective Data Vital Signs: Vital Signs Temp Pulse Resp BP Pulse Ox O2 Del Method O2 Flow Rate 98.6 F 90 24 H 117/75 93 Room Air 2 05/02/23 08:00 05/02/23 08:00 05/02/23 08:00 05/02/23 08:00 05/02/23 07:00 05/02/23 08:00 05/02/23 06:00 Oxygen Flow Rate (L/min) 2 Oxygen Delivery Method Room Air Weight: 249 lb 6.4 oz Body Mass Index (BMI) 35.7 Intake & Output: Intake and Output for Last 24 Hours 04/30/23 05/01/23 05/02/23 23:59 23:59 23:59 Intake Total 1234.42 / 1234.59 2457.77 / 2467.02 866.77 / 866.77 Output Total 1500 / 1500 1700 / 1700 850 / 850 Balance -265.58 / -265.41 757.77 / 767.02 16.77 / 16.77 Lab / Micro Data 05/02/23 02:57 05/02/23 02:57 Labs: Laboratory Results - last 24 hr 05/01/23 10:00: APTT 44.3 H 05/01/23 16:45: APTT > 200.0 H* 05/02/23 02:57: WBC 9.0, RBC 3.29 L, Hgb 8.9 L, Hct 28.3 L, MCV 86.0, MCH 27.1, MCHC 31.4 L, RDW Std Deviation 46.5 H, RDW Coeff of Marta 14.6, Plt Count 246, MPV 9.4, Immature Gran % (Auto) 1.100 H, Neut % (Auto) 68.6, Lymph % (Auto) 15.6 L, [place] % (Auto) 11.6 H, Eos % (Auto) 2.7, Baso % (Auto) 0.4, Absolute Neuts (auto) 6.1, Absolute Lymphs (auto) 1.40, Nucleated RBC % 0, APTT 45.7 H, Sodium 135 L, Potassium 3.7, Chloride 103, Carbon Dioxide 25.0, Anion Gap 7, BUN 18, Creatinine 0.91, Estim Creat Clear Calc 63.51, Est GFR (MDRD) Af Amer 102, Est GFR (MDRD) Non-Af 84, BUN/Creatinine Ratio 19.7, Glucose 113 H, Calcium 8.2 L Micro: Microbiology 04/30/23 08:20 Blood Culture (Wb) - Anticubital Right Blood Culture - Preliminary Staphylococcus aureus 04/30/23 08:24 Blood Culture (Wb) - Right Hand Blood Culture - Preliminary Staphylococcus aureus 04/28/23 23:20 Urine Catheter - Catheter Urine Culture - Final Escherichia coli 04/30/23 08:24 Blood Culture (Wb) - Anticubital Right Bacteria Detection (P CR) - Final 04/28/23 22:35 Blood Culture (Wb) - Anticubital Left Blood Culture - Final Staphylococcus aureus 04/28/23 22:45 Blood Culture (Wb) - Right Hand Bacteria Detection (PCR) - Final Staphylococcus aureus 04/28/23 22:45 Blood Culture (Wb) - Right Hand Blood Culture - Final Staphylococcus aureus 04/28/23 23:04 Nasal Secretion SARS-CoV-2 & FLU Antigen (Rapid) - Final Radiography Diagnostic Testing: Radiology Impression Chest CTA 05/02/23 07:46 IMPRESSION: Evidence of PE within distal branches leading to the left lower lobe. No proximal PE noted. There is no right heart strain. No thoracic aortic aneurysm or dissection Chronic interstitial changes in both lung yeh with chronic bronchitis, small pleural effusions and bibasilar atelectasis Borderline enlarged likely reactive mediastinal and subcarinal adenopathy Stable 6 mm noncalcified nodule in the left upper lobe, given the patient''s age, no specific follow-up is needed unless there is high clinical suspicion of neoplastic process N.B. : The above Results were Read Back by Remington Garcia MD to Raina Nair MD, and understanding confirmed on 05/02/2023 09:44:00 (ET). Electronically Signed: Remington Garcia MD at 9:45 EST Reading Location ID and State: [facility] / [place] , Service support , Physical Exam Const alert, oriented x3, no apparent distress and average body habitus Constitutional Narrative: frail General Appearance: cooperative and well developed Orientation / Consciousness: confused and disoriented HEENT normocephalic, head/scalp atraumatic, hearing grossly normal bilaterally, moist oral mucous membranes and oropharynx normal Eyes PERRL, EOMs intact bilaterally and conjunctivae normal Neck no lymphadenopathy and supple Lymph Lymphatic: no lymphadenopathy noted, no lymphedema noted and lymphedema Resp normal respiratory effort, normal air movement, no retractions, no use of accessory muscles and clear to auscultation bilaterally Resp Narrative: tachypneic Effort and Inspection: tachypneic and respiratory distress Cardio regular rhythm, S1 normal heart sound and S2 normal heart sound Cardio Narrative: tachycardic, has a grade 2-3 murmur at the aortic valve area GI normal to inspection, nondistended, normoactive bowel sounds, soft to palpation, non-tender and non-distended Extremity normal to inspection, full ROM, normal capillary refill, no clubbing, cyanosis or edema and no calf tenderness General Extremity: no tenderness to palpation of joints or extremities Skin General Skin Exam: no breakdown Neuro CN's II-XII intact bilaterally, moves all extremities, no focal motor deficits, no sensory deficits noted and deep tendon reflexes 2+ bilaterally Sensorium / Orientation: awake, alert and oriented to person Speech: speech normal Motor Exam: strength 5/5 throughout and general weakness Psych thought process normal, cooperative and affect normal Appearance: appropriate Assessment & Plan Assessment/Plan (1) Acute kidney injury: (2) Urinary tract infection: QUALIFIERS: Urinary tract infection type: acute cystitis Hematuria presence: with hematuria Qualified Code(s): N30.01 - Acute cystitis with hematuria (3) Metabolic encephalopathy: PLAN: Plan #bacteremia in the setting of UTI * Admitted with fever of 101 Fahrenheit and was tachycardic and had leukocytosis as well. * Urinalysis showed evidence of UTI. * 4 out of 4 blood cultures positive for gram-positive cocci. Will add on IV vancomycin. 2D echo ordered. * ID consulted. * urine cultures now showing E coli. WIll start on IV ceftriaxone. * #Infective endocarditis * blood cultures positive for Staph aureus. Repeat blood cultures still positive for Staph aureus * 2D echo showed a bioprosthetic aortic valve with possible mobile mass on aortic valve measuring 2.1 x 0.5cm * on IV vancomycin.repeat blood cultures pending. * ID consulted * for KAROLINA today * #Afib with RVR * patient complained of chest pain. but said the pain was generalised as well. * was on cardizem drip. also started on heparin drip * cardiology on board * troponins were also elevated; he was started on heparin drip per cardiology. * 2D echo showed evidence of moderate concentric LVH with normal LVSF and EF of 55-60%, as well as no regional wall motion abnormalities. * management as per cardiology * CTA chest done today due to persistent tachycardia and tachypnea, CTA chest done today showed evidence of PE within the distal branches leading to the left lower lobe; no proximal PE noted, and no right heart strain. * will resume heparin drip after KAROLINA * #Nonstemi * Patient complained of some chest pain. Initial troponin was 340 but trended down to 210. * 2D echo as above. Cardiology on board and patient currently on heparin drip. * Cardiology thinks is likely due to his A-fib with RVR. * #UTI: As above #Acute encephalopathy: resolved. #ZAHEER: Resolved. #History of prostate cancer: Follow-up with urology on outpatient basis. #Debility and weakness likely due to cancer and acute infection: PT OT consulted. Fall precautions. #Benign essential hypertension. IV hydralazine as needed. On metoprolol #BPH: On tamsulosin and finasteride #Hyperlipidemia: On statin #History of aortic stenosis: S/p TAVR. Stable. #GERD: On PPI DVT prophylaxis: Heparin Total time spent on evaluation and management of patient, reviewing chart, discussing plan with patient, discussion with nursing and ancillary staff as well as documentation: 42 mins Charges/Coding Visit Charges Inpatient E&M: 66238 [facility] Hosp L3
[2023-05-02] MEDS: Tamsulosin HCl 0.4 MG Capsule 0.400000000000000022 MG PO (11:57)
[2023-05-02] MEDS: APIXABAN 5 MG TABLET PO ×2 (11:58→20:47)
[2023-05-02] MEDS: Finasteride 5 MG Tablet PO (11:58)
[2023-05-02] MEDS: dilTIAZem CD 120 MG Capsule PO (11:59)
[2023-05-02] MEDS: Pantoprazole Sodium 20 MG Tablet PO (12:01)
[2023-05-02 13:44] LABS: Vancomycin, Trough Level 12.6 ug/mL (5.0-15.0)
--- NOTE | 2023-05-02 14:26 | PCM.CONS.GEN ---
Assessment & Plan Assessment/Plan (1) Prosthetic valve endocarditis: PLAN: KAROLINA with vegetation seen; discussed with cardiology. CTA shows PE. Will repeat bcx. Will change abx to cefazolin with gent for synergy. Will follow, thank you (2) MSSA bacteremia: HPI Consult Data Date of Consult: 05/02/23 HPI Narrative Reason for Consultation: endocarditis HPI Narrative: KEENA FRIED, is a 82 M with bioprosthetic TAVR 09/2022, prostate cancer, presented 04/28 with about one week progressive fever, chills, weakness. No recent procedures, skin infections/abscess. Did have a fall about 2 weeks ago with bruising of hip. Came to ED, had fever, admitted on zosyn then vanc added. Bcx with MSSA, TTE neg, then KAROLINA showed veg on aortic valve. Feeling a little better, no focal joint of back pain that is out of the ordinary. Fever improving. Mild cough and dyspnea. Full ROS performed and neg except as noted above. [facility] Medical History Abnormal electrocardiogram Ambulates with cane Anemia Anemia Aortic stenosis Arthritis Atrial fibrillation Back pain BPH (benign prostatic hyperplasia) Cancer Cardiology follow-up encounter Chronic back pain Chronic indwelling Lock[place] catheter Depression Diverticulosis DVT (deep venous thrombosis) Easy bruising Essential hypertension Gastric reflux GERD (gastroesophageal reflux disease) History of echocardiogram History of edema History of steroid therapy Hyperlipidemia Hypertension Inguinal hernia Irregular heart beat Kidney disease Kidney stones Leg cramps Loss of hearing Lung nodule Multiple premature ventricular complexes Non-smoker Nonrheumatic aortic (valve) stenosis Obesity Osteoarthritis Prostate cancer metastatic to bone Prostate disease Restless legs Wears glasses Wears hearing aid Home Medications acidophilus 25 million cell-pectin, citrus 100 mg tablet 1 tab PO DAILY probiotic 03/12/14 [History Last Taken 04/10/22] finasteride 5 mg tablet 5 mg PO DAILY BPH 03/21/22 [History Last Taken 04/10/22] cholecalciferol (vitamin D3) 125 mcg (5,000 unit) tablet (Vitamin D3) 125 mcg PO DAILY supplement 04/10/22 [History Last Taken 04/10/22] arrnyipq-zff-vvgrk acid 0.4 mg-lycopene 300 mcg-lutein 250 mcg tablet (Centrum Silver) 1 tab PO DAILY supplement 12/04/22 [History Last Taken 04/10/22] potassium chloride 20 mEq tablet,extended release 20 meq PO BID 06/21/22 [History Last Taken Unknown] albuterol sulfate 90 mcg/actuation aerosol inhaler 2 puff inhalation Q6H PRN shortness of breath or wheezing 10/12/22 [History Last Taken Unknown] metoprolol succinate 50 mg tablet,extended release 24 hr 50 mg PO DAILY 10/12/22 [History Last Taken Unknown] omeprazole 20 mg capsule,delayed release 20 mg PO DAILY 10/12/22 [History Last Taken Unknown] tamsulosin 0.4 mg capsule 0.4 mg PO DAILY BPH 10/12/22 [History Last Taken Unknown] ondansetron 4 mg disintegrating tablet 4 mg PO Q8H PRN PRN Nausea #10 tabs 04/25/23 [Rx Last Taken Unknown] oxycodone-acetaminophen 5 mg-325 mg tablet (Percocet) 1 tab PO Q8H PRN pain 7 days #15 tabs 04/27/23 [Rx Last Taken Unknown] Allergy/AdvReac Type Severity Reaction Status Date / Time No Known Allergies Allergy Verified 04/27/23 12:13 Family History Father Heart disease Surgical History (Updated 04/29/23 @ 02:30 by Lucretia Faye) Amputated toe History of AAA (abdominal aortic aneurysm) repair History of carpal tunnel release History of cystoscopy History of inguinal hernia repair History of left knee replacement History of total knee arthroplasty History of transcatheter aortic valve replacement (TAVR) (~09/26/22) Social History household members: spouse Smoking Status: Never smoker substance use type: does not use Physical Exam Const alert, oriented x3 and no apparent distress General Appearance: cooperative HEENT normocephalic and head/scalp atraumatic Eyes PERRL and EOMs intact bilaterally Neck supple and No nodes Resp normal air movement and clear to auscultation bilaterally Cardio regular rate and regular rhythm Heart Sounds: murmur GI soft to palpation, non-tender and non-distended Extremity General Extremity: Negative for edema Skin no rashes or lesions noted Skin Narrative: splinter hemorrhage on L thumb Neuro CN's II-XII intact bilaterally Lab / Micro Data Attestation: I reviewed the patient's lab results. 05/02/23 02:57 05/02/23 02:57 Labs: Laboratory Results - last 24 hr 05/01/23 16:45: APTT > 200.0 H* 05/02/23 02:57: WBC 9.0, RBC 3.29 L, Hgb 8.9 L, Hct 28.3 L, MCV 86.0, MCH 27.1, MCHC 31.4 L, RDW Std Deviation 46.5 H, RDW Coeff of Marta 14.6, Plt Count 246, MPV 9.4, Immature Gran % (Auto) 1.100 H, Neut % (Auto) 68.6, Lymph % (Auto) 15.6 L, [place] % (Auto) 11.6 H, Eos % (Auto) 2.7, Baso % (Auto) 0.4, Absolute Neuts (auto) 6.1, Absolute Lymphs (auto) 1.40, Nucleated RBC % 0, APTT 45.7 H, Sodium 135 L, Potassium 3.7, Chloride 103, Carbon Dioxide 25.0, Anion Gap 7, BUN 18, Creatinine 0.91, Estim Creat Clear Calc 63.51, Est GFR (MDRD) Af Amer 102, Est GFR (MDRD) Non-Af 84, BUN/Creatinine Ratio 19.7, Glucose 113 H, Calcium 8.2 L 05/02/23 12:47: Vancomycin Trough 12.6 Micro: Microbiology 04/30/23 08:20 Blood Culture (Wb) - Anticubital Right Blood Culture - Preliminary Staphylococcus aureus 04/30/23 08:24 Blood Culture (Wb) - Right Hand Blood Culture - Preliminary Staphylococcus aureus Imagaing Radiology Impression Chest CTA 05/02/23 07:46 IMPRESSION: Evidence of PE within distal branches leading to the left lower lobe. No proximal PE noted. There is no right heart strain. No thoracic aortic aneurysm or dissection Chronic interstitial changes in both lung yeh with chronic bronchitis, small pleural effusions and bibasilar atelectasis Borderline enlarged likely reactive mediastinal and subcarinal adenopathy Stable 6 mm noncalcified nodule in the left upper lobe, given the patient''s age, no specific follow-up is needed unless there is high clinical suspicion of neoplastic process N.B. : The above Results were Read Back by Remington Garcia MD to Raina Nair MD, and understanding confirmed on 05/02/2023 09:44:00 (ET). Electronically Signed: Remington Garcia MD at 9:45 EST , ADDENDUM: 05/02/23 [id number]
[2023-05-02] MEDS: Cefazolin 2 GM in 0.9% Normal Saline (100mL Bag) 100 ML IV ×2 (14:47→20:52)
--- NOTE | 2023-05-02 15:30 | CASEMGMT ---
Social Work Chart reviewed and noted discussions on the weekend about short term SNF stay. Presented to patient's room to discuss, and to see if daughter Laura was present in room. No visitors, and patient was sleeping soundly; did not awaken when this jingle writer entered room and called name. Called the daughter on cell phone, and left message to call this jingle writer. Received call back from daughter Laura who reports patient vacillates between acknowledging need for SNF and wanting to go home. Patient reportedly looks after patient's , who has some forgetfulness. Laura reports patient is coming around more to the idea of SNF, but is concerned that as patient continues to get better in the hospital, patient may change mind and demand to go home. Daughter reports to be patient's POAHC and will bring in POAHC and Living Will at next visit (05.03.23). First choice is [facility]. Updated Laura there are no beds in TCU, but will ask for patient to be considered in case a bed opens up. Asked Laura for a second choice. Laura reports need to confer with siblings, and will have choice for this jingle writer tomorrow; thinking [facility] will be 2nd choice. Message to Kylee in admissions at [facility] of referral, should a bed open up. Plan: Anticipate short term SNF. Working to finalize placement. -DANYELL Armijo
[2023-05-02] MEDS: WATER IVPB ×2 (15:33→22:41)
[2023-05-02] MEDS: DEXTROSE 5% IVPB ×2 (15:33→22:41)
[2023-05-02] MEDS: GENTAMICIN IVPB ×2 (15:33→22:41)
--- NOTE | 2023-05-02 15:42 | PCM.RX.CS ---
Consult Antibiotic Management Pharmacy has been consulted to manage selected antibiotic: Gentamicin Type of Intervention Type of Consult: New start Suspected Infection Suspected Infection: Endocarditis Labs Labs: Sodium 135 mmol/L (136-145) L 05/02/23 02:57 Potassium 3.7 mmol/L (3.5-5.1) 05/02/23 02:57 Chloride 103 mmol/L (98-107) 05/02/23 02:57 Carbon Dioxide 25.0 mmol/L (21.0-32.0) 05/02/23 02:57 Anion Gap 7 (5-15) 05/02/23 02:57 BUN 18 mg/dL (7-18) 05/02/23 02:57 Creatinine 0.91 mg/dL (0.70-1.30) 05/02/23 02:57 Est GFR (MDRD) Af Amer 102 mL/min (>60) 05/02/23 02:57 Est GFR (MDRD) Non-Af 84 mL/min (>60) 05/02/23 02:57 BUN/Creatinine Ratio 19.7 RATIO (10-20) 05/02/23 02:57 Glucose 113 mg/dL (74-106) H 05/02/23 02:57 Vancomycin Trough 12.6 ug/mL (5.0-15.0) 05/02/23 12:47 Microbiology Microbiology: Microbiology 04/30/23 08:20 Blood Culture (Wb) - Anticubital Right Blood Culture - Preliminary Staphylococcus aureus 04/30/23 08:24 Blood Culture (Wb) - Right Hand Blood Culture - Preliminary Staphylococcus aureus 04/28/23 23:20 Urine Catheter - Catheter Urine Culture - Final Escherichia coli 04/30/23 08:24 Blood Culture (Wb) - Anticubital Right Bacteria Detection (PCR) - Final 04/28/23 22:35 Blood Culture (Wb) - Anticubital Left Blood Culture - Final Staphylococcus aureus 04/28/23 22:45 Blood Culture (Wb) - Right Hand Bacteria Detection (PCR) - Final Staphylococcus aureus 04/28/23 22:45 Blood Culture (Wb) - Right Hand Blood Culture - Final Staphylococcus aureus 04/28/23 23:04 Nasal Secretion SARS-CoV-2 & FLU Antigen (Rapid) - Final Dosing Weight Weight used for dosin kg Estimated Creatinine Clearance Estimated Creatinine Clearance: 77.4ML/MIN Goal Trough Goal Trough: Other (<1 MCG/ML) Pharmacy Plan for Drug Dosing Pharmacy Plan for Drug Dosing: Give 1 mg/kg q8h for 2 weeks as ordered for gram + synergy dosing. Based on the patient's actual body weight of 113.1 kg and ideal body weight of 73kg, the adjusted body weight to be used for dosing was calculated to be 89kg. In addition, the patient's CrCl was calculated to be 77.4ml/min (using adjusted body weight). The gent dose will then be 90mg IV q8h per [facility] gent gram + synergy dosing. Will check a trough level 30 minutes before the 4th dose. A peak will not be required to be taken for synergy dosing. Pharmacy Service will continue to monitor and adjust dosing as required. Follow-Up Labs Follow-Up Labs: Trough: Gentamicin Date/Time Labs Ordered Labs to be done on [date and time ordered]: 05/03 14:30
[2023-05-02] MEDS: 0.9% Saline Lock 10 ML Syringe IV (20:47)
[2023-05-02] MEDS: MELATONIN 3 MG TABLET PO (20:47)
[2023-05-03] VITALS (12 sets, daily range): BP systolic 119–149; BP diastolic 84–98; PULSE 93–122; RESP 12–24; TEMP 36.4–36.8; O2SAT 92–96
[2023-05-03] MEDS: Acetaminophen 325 MG Tablet 650 MG PO ×2 (02:28→21:28)
[2023-05-03 05:58] LABS: Absolute Lymphocyte Count 1.16 X10^3/uL (0.83-4.51); Absolute Neutrophil Count 8.1 X10^3/uL (2.0-7.7); Basophil# 0.03 X10^3/uL; Basophil% 0.3 % (0-1); Eosinophil# 0.21 X10^3/uL; Hematocrit 26.9 % (40-54); Hemoglobin 8.8 g/dL (13.0-16.5); Lymphocyte # 1.16 X10^3/ul (0.83-4.51); Lymphocyte % 10.8 % (19-41); Mean Corp Hgb Conc 32.7 g/dL (32-36); Mean Corpuscular Volume 85.7 fL (80-94); Mean Platelet Vol. 9.4 fl (6.2-12.0); Monocyte# 1.08 X10^3/uL; Monocyte% 10.1 % (0-10); NRBC Flagged by Analyzer 0 % (0-5); Neutrophil # 8.12 X10^3/uL (2.7-7.7); Neutrophil % 75.8 % (47-70); Platelet Count 255 K/mm3 (150-450); RBC Distribution Width CV 14.6 % (11.6-14.6); RBC Distribution Width SD 46.1 fl (35.1-43.9); Red Blood Count 3.14 M/mm3 (4.6-6.2); White Blood Count 10.7 K/mm3 (4.4-11.0)
[2023-05-03] MEDS: Cefazolin 2 GM in 0.9% Normal Saline (100mL Bag) 100 ML IV ×3 (06:02→21:24)
[2023-05-03] MEDS: 0.9% Saline Lock 10 ML Syringe IV ×3 (06:05→21:24)
[2023-05-03 06:19] LABS: Anion Gap 7 (5-15); BUN 16 mg/dL (7-18); BUN/Creat Ratio 16.3 RATIO (10-20); Calcium,Total 8.2 mg/dL (8.5-10.1); Chloride 105 mmol/L (98-107); Creatinine, Serum 0.98 mg/dL (0.70-1.30); EST Glomerular Filtration Rate 78 mL/min (>60); Est Glom Filt Rate - Afr Amer 94 mL/min (>60); Estimated Creatinine Clearance 58.97 ml/min; Glucose 131 mg/dL (74-106); Potassium 3.6 mmol/L (3.5-5.1); Sodium Level 136 mmol/L (136-145)
[2023-05-03] MEDS: DEXTROSE 5% IVPB (07:04)
[2023-05-03] MEDS: GENTAMICIN IVPB (07:04)
[2023-05-03] MEDS: WATER IVPB (07:04)
[2023-05-03] MEDS: dilTIAZem CD 120 MG Capsule PO (09:28)
[2023-05-03] MEDS: APIXABAN 5 MG TABLET PO ×2 (09:28→21:28)
[2023-05-03] MEDS: Finasteride 5 MG Tablet PO (09:28)
[2023-05-03] MEDS: Metoprolol(XL)Succ 50 MG Tablet PO (09:28)
[2023-05-03] MEDS: Cholecalciferol (Vit D3) 125 MCG CAPSULE (5,000 UNITS) PO (09:28)
[2023-05-03] MEDS: Multivitamins,Ther W-Minerals Tablet 1 TABLET PO (09:28)
[2023-05-03] MEDS: Pantoprazole Sodium 20 MG Tablet PO (09:28)
[2023-05-03] MEDS: Tamsulosin HCl 0.4 MG Capsule 0.400000000000000022 MG PO (09:29)
--- NOTE | 2023-05-03 10:52 | PN_ITS ---
Subjective Subjective Patient seen and examined. He has no active complaints. Review of systems is otherwise negative. He has remained stable. KAROLINA done yesterday confirmed the vegetation on the aortic valve. Objective Data Objective Data Vital Signs: Vital Signs Temp Pulse Resp BP Pulse Ox O2 Del Method O2 Flow Rate 97.9 F 109 H 22 H 149/93 H 96 Room Air 2 05/03/23 09:26 05/03/23 09:28 05/03/23 09:26 05/03/23 09:26 05/03/23 09:26 05/03/23 09:26 05/02/23 06:00 Oxygen Flow Rate (L/min) 2 Oxygen Delivery Method Room Air Weight: 249 lb 6.4 oz Body Mass Index (BMI) 35.7 Intake & Output: Intake and Output for Last 24 Hours 05/01/23 05/02/23 05/03/23 23:59 23:59 23:59 Intake Total 2457.77 / 2467.02 1493.08 / 1493.08 342.25 / 342.25 Output Total 1700 / 1700 2950 / 2950 250 / 250 Balance 757.77 / 767.02 -1456.92 / -1456.92 92.25 / 92.25 Lab / Micro Data 05/03/23 05:28 05/03/23 05:28 Labs: Laboratory Results - last 24 hr 05/02/23 12:47: Vancomycin Trough 12.6 05/03/23 05:28: WBC 10.7, RBC 3.14 L, Hgb 8.8 L, Hct 26.9 L, MCV 85.7, MCH 28.0, MCHC 32.7, RDW Std Deviation 46.1 H, RDW Coeff of Marta 14.6, Plt Count 255, MPV 9.4, Immature Gran % (Auto) 1.000 H, Neut % (Auto) 75.8 H, Lymph % (Auto) 10.8 L , Wetzel % (Auto) 10.1 H, Eos % (Auto) 2.0, Baso % (Auto) 0.3, Absolute Neuts (auto) 8.1 H, Absolute Lymphs (auto) 1.16, Nucleated RBC % 0, Sodium 136, Potassium 3.6, Chloride 105, Carbon Dioxide 24.0, Anion Gap 7, BUN 16, Creatinine 0.98, Estim Creat Clear Calc 58.97, Est GFR (MDRD) Af Amer 94, Est GFR (MDRD) Non-Af 78, BUN/Creatinine Ratio 16.3, Glucose 131 H, Calcium 8.2 L Micro: Microbiology 04/30/23 08:20 Blood Culture (Wb) - Anticubital Right Blood Culture - Preliminary Staphylococcus aureus 04/30/23 08:24 Blood Culture (Wb) - Right Hand Blood Culture - Preliminary Staphylococcus aureus 05/02/23 14:00 Blood Culture (Wb) - Right Forearm Blood Culture - Preliminary 04/28/23 23:20 Urine Catheter - Catheter Urine Culture - Final Escherichia coli 04/30/23 08:24 Blood Culture (Wb) - Anticubital Right Bacteria Detection (PCR) - Final 04/28/23 22:35 Blood Culture (Wb) - Anticubital Left Blood Culture - Final Staphylococcus aureus 04/28/23 22:45 Blood Culture (Wb) - Right Hand Bacteria Detection (PCR) - Final Staphylococcus aureus 04/28/23 22:45 Blood Culture (Wb) - Right Hand Blood Culture - Final Staphylococcus aureus 04/28/23 23:04 Nasal Secretion SARS-CoV-2 & FLU Antigen (Rapid) - Final Physical Exam Const alert, oriented x3, no apparent distress and average body habitus General Appearance: cooperative and well developed HEENT normocephalic, head/scalp atraumatic, hearing grossly normal bilaterally, moist oral mucous membranes and oropharynx normal Eyes PERRL, EOMs intact bilaterally and conjunctivae normal Neck no lymphadenopathy and supple Lymph Lymphatic: no lymphadenopathy noted, no lymphedema noted and lymphedema Resp normal respiratory effort, normal air movement, no retractions, no use of accessory muscles and clear to auscultation bilaterally Resp Narrative: tachypneic Effort and Inspection: tachypneic and respiratory distress Cardio regular rhythm, S1 normal heart sound and S2 normal heart sound Cardio Narrative: tachycardic, has a grade 2-3 murmur at the aortic valve area GI normal to inspection, nondistended, normoactive bowel sounds, soft to palpation, non-tender and non-distended Extremity normal to inspection, full ROM, normal capillary refill, no clubbing, cyanosis or edema and no calf tenderness General Extremity: no tenderness to palpation of joints or extremities Skin General Skin Exam: no breakdown Neuro CN's II-XII intact bilaterally, moves all extremities, no focal motor deficits, no sensory deficits noted and deep tendon reflexes 2+ bilaterally Sensorium / Orientation: awake, alert and oriented to person Speech: speech normal Motor Exam: strength 5/5 throughout and general weakness Psych thought process normal, cooperative and affect normal Appearance: appropriate Assessment & Plan Assessment/Plan (1) Acute kidney injury: (2) Urinary tract infection: QUALIFIERS: Urinary tract infection type: acute cystitis Hematuria presence: with hematuria Qualified Code(s): N30.01 - Acute cystitis with hematuria (3) Metabolic encephalopathy: PLAN: Plan #bacteremia in the setting of UTI * Admitted with fever of 101 Fahrenheit and was tachycardic and had leukocytosis as well. * Urinalysis showed evidence of UTI. * 4 out of 4 blood cultures positive for gram-positive cocci. Will add on IV vancomycin. 2D echo ordered. * ID on board; Antibiotics switched to IV cefazolin and gentamycin * urine cultures grew E coli * #Infective endocarditis * blood cultures positive for Staph aureus. Repeat blood cultures still positive for Staph aureus * 2D echo showed a bioprosthetic aortic valve with possible mobile mass on aortic valve measuring 2.1 x 0.5cm * on IV vancomycin.repeat blood cultures still positive for MSSA * ID on board. Had KAROLINA yesterday which showed evidence of vegetation on the bioprosthetic aortic valve * * #Afib * RVR resolved. * now off cardizem drip * patient complained of chest pain. but said the pain was generalised as well. * cardiology on board * 2D echo showed evidence of moderate concentric LVH with normal LVSF and EF of 55-60%, as well as no regional wall motion abnormalities. * management as per cardiology * CTA chest done due to persistent tachycardia and tachypnea, CTA chest done today showed evidence of PE within the distal branches leading to the left lower lobe; no proximal PE noted, and no right heart strain. * now on eliquis. On PO cardizem * * #Nonstemi * Patient complained of some chest pain. Initial troponin was 340 but trended down to 210. * 2D echo as above. Cardiology on board. There was likely a type II due to DONG DE due to A-fib with RVR. * A-fib with RVR is resolved patient now on Eliquis. * #UTI: As above #Acute encephalopathy: resolved. #ZAHEER: Resolved. #History of prostate cancer: Follow-up with urology on outpatient basis. #Debility and weakness likely due to cancer and acute infection: PT OT consu lted. Fall precautions. #Benign essential hypertension. IV hydralazine as needed. On metoprolol #BPH: On tamsulosin and finasteride #Hyperlipidemia: On statin #History of aortic stenosis: S/p TAVR. Stable. #GERD: On PPI DVT prophylaxis: eliquis Total time spent on evaluation and management of patient, reviewing chart, discussing plan with patient, discussion with nursing and ancillary staff as well as documentation: 42 mins Charges/Coding Visit Charges Inpatient E&M: 65153 Subs Hosp L2
--- NOTE | 2023-05-03 13:05 | PCM.PN.ID ---
Physical Exam Narrative Feeling better, some sweats last night. Const alert and no apparent distress General Appearance: cooperative Resp normal air movement and clear to auscultation bilaterally Cardio regular rate and regular rhythm GI soft to palpation, non-tender and non-distended Extremity General Extremity: Negative for edema Skin no rashes or lesions noted ID ID: Route of nutrition/ use of supplements: [] Nutritional Intake: [] IV Site: [] [place] Catheter: [] Assessment & Plan Assessment/Plan (1) Prosthetic valve endocarditis: PLAN: KAROLINA with vegetation seen by aortic valve; discussed with cardiology. CTA shows PE. Will repeat bcx. Cont cefazolin with gent for synergy. Will follow (2) MSSA bacteremia:
--- NOTE | 2023-05-03 13:56 | CHAPLAIN ---
Type of Pastoral Visit _x__ Initial Visit ___ Follow-up Visit ___ On-call Visit ___ General Patient Visit ___ Spiritual Assessment ___ Family Conference ___ Bereavement ___ Rapid Response ___ Code Blue ___ Other (describe below) Pastoral Care Referral From _x__ Patient ___ Family ___ Nurse ___ Physician ___ Report Checker ___ Passenger Booking Clerk ___ Other (describe below) Sacrament/Intervention _x__ Active listening ___ Anointing ___ Latter Day ___ Bereavement ___ Communion _x__ Gisele exploration ___ _x__ Life review _x__ Prayer ___ Reconciliation ___ Sacrament of Sick ___ Supportive presence ___ Wedding ___ Other (describe below) Pastoral Comments patient is welcoming and admits to frustration over taking two steps forward and then three steps back over the last year +; pt recounts his health history and is straight forward about wanting to be at home and never needing to go to a residential or stay in the hospital ; pt has lots of family and latter-day support; pt uses gisele in God for his encouragement; pt gives lots of life review; pt welcomes presence and prayer of this scientific technical writer for support today
[2023-05-03 15:10] LABS: Gentamicin, Conv. Trough 1.9 ug/mL (<2.0)
--- NOTE | 2023-05-03 15:40 | PCM.RX.CS ---
Consult Antibiotic Management Pharmacy has been consulted to manage selected antibiotic: Gentamicin Type of Intervention Type of Consult: Follow-up Suspected Infection Suspected Infection: Endocarditis Prior Doses of Antibiotics Prior Doses of Antibiotics Received/Current Regimen: current dose is gent 90mg IV q8h for gram+ synergy dosing Labs Labs: Sodium 136 mmol/L (136-145) 05/03/23 05:28 Potassium 3.6 mmol/L (3.5-5.1) 05/03/23 05:28 Chloride 105 mmol/L (98-107) 05/03/23 05:28 Carbon Dioxide 24.0 mmol/L (21.0-32.0) 05/03/23 05:28 Anion Gap 7 (5-15) 05/03/23 05:28 BUN 16 mg/dL (7-18) 05/03/23 05:28 Creatinine 0.98 mg/dL (0.70-1.30) 05/03/23 05:28 Est GFR (MDRD) Af Amer 94 mL/min (>60) 05/03/23 05:28 Est GFR (MDRD) Non-Af 78 mL/min (>60) 05/03/23 05:28 BUN/Creatinine Ratio 16.3 RATIO (10-20) 05/03/23 05:28 Glucose 131 mg/dL (74-106) H 05/03/23 05:28 Gentamicin Trough 1.9 ug/mL (<2.0) 05/03/23 14:00 Vancomycin Trough 12.6 ug/mL (5.0-15.0) 05/02/23 12:47 Microbiology Microbiology: Microbiology 04/30/23 08:20 Blood Culture (Wb) - Anticubital Right Blood Culture - Preliminary Staphylococcus aureus 04/30/23 08:24 Blood Culture (Wb) - Right Hand Blood Culture - Preliminary Staphylococcus aureus 05/02/23 14:00 Blood Culture (Wb) - Right Forearm Blood Culture - Preliminary 04/28/23 23:20 Urine Catheter - Catheter Urine Culture - Final Escherichia coli 04/30/23 08:24 Blood Culture (Wb) - Anticubital Right Bacteria Detection (PCR) - Final 04/28/23 22:35 Blood Culture (Wb) - Anticubital Left Blood Culture - Final Staphylococcus aureus 04/28/23 22:45 Blood Culture (Wb) - Right Hand Bacteria Detection (PCR) - Final Staphylococcus aureus 04/28/23 22:45 Blood Culture (Wb) - Right Hand Blood Culture - Final Staphylococcus aureus 04/28/23 23:04 Nasal Secretion SARS-CoV-2 & FLU Antigen (Rapid) - Final Estimated Creatinine Clearance Estimated Creatinine Clearance: 71.9ml/min Goal Trough Goal Trough: Other (<1 mcg/ml) Pharmacy Plan for Drug Dosing Pharmacy Plan for Drug Dosing: The gent trough before the 4th dose resulted in a value of 1.9. This is above the goal of <1 mcg/ml so will hold current dosing and get a gent random level 12 hours from when this trough was taken. Will reevaluate dosing after the random level is done. Pharmacy Service will continue to monitor and adjust dosing as required. Follow-Up Labs Follow-Up Labs: Trough: Gentamicin (random level) Date/Time Labs Ordered Labs to be done on [date and time ordered]: 05/04 02:00
[2023-05-03] MEDS: Ondansetron ODT 4 MG Tablet PO (16:45)
--- NOTE | 2023-05-03 17:00 | CASEMGMT ---
Advanced Directive Validation. [facility] and Living will were brought in by the daughter Laura, and are placed on the chart. Patient's is listed first and then Laura is second ([phone]). Daughter Keisha is listed as third. is reported to have some level of confusion, so Laura has been assisting both patient and patient's Cheryl. -DANYELL Armijo
--- NOTE | 2023-05-03 17:30 | CASEMGMT ---
Social Work This keno writer updated today that patient may need IV antibiotics at discharge. Noted that patient would still also benefit from PT and OT. Met with patient, introduced to self and social work explored how patient was doing discussed discharge planning, trying to pull patient into conversation about his aftercare plan. Patient cooperative and agreeable to speak with social science manager. Patient reports preference would be to go back home, as really wants to be at home with his . Patient discussed there's varying thoughts between the family members about what needs to happen long-term with patient and patient's . Patient reflected on his life, talking about getting older, life changes, not being able to do as much for selves anymore, and having to give away their disf-nlsk-dzz Khmer hernandez due to the dog's high-energy and the patient and his 's increasing age. Much supportive listening, and encouragement provided to patient. This keno writer gently broached with the patient that based on how patient is doing in therapy, and the potential need for antibiotics, this would warrant more of the group home facility than going home with home healthcare. Educated that some people do go home with IV antibiotics, but that would have to have a caregiver available at the same time daily to be taught how to administer. Patient reports to have a granddaughter who is a nurse though not sure could be present at the house at the same time every day. Patient reports anticipation to be at the hospital through the first of the year and can have a discussion with family at a later time. This keno writer gently broached with patient that need to continue working on discharge planning now, and that it would be helpful to sit down with the family together to discuss. Patient reports his daughter Laura will be at the hospital on 05.04.23 around 10 AM and it's okay for this keno writer to call to confirm. By end of conversation patient agreeable to social science manager exploring group home facility options, specifically [facility] which is one that the daughter had discussed and that the family is familiar with. Called patient's daughter Laura left a message. Lauar returned this keno writer's call and updated the conversation with the patient. Laura confirmed will be in tomorrow morning and will let staff know when that arrives so social science manager can meet with patient and family for further discussions. Laura confirms that family second choice would be [facility]. But Laura no patient agreed for social work to reach out to [facility], to check on bed availability and whether could accept the patient. This keno writer sent referral to [facility] via care port. Plan: Social work will meet with patient and family on 05.04.23. Working towards group home facility placement. -VOLODYMYR Armijo, BEAUTY PARLOR CLEANER *This note was generated with [employer] dictation software. It may contain incorrect words, spelling, and punctuation that were not noted in review of the chart prior to signing*
[2023-05-03] MEDS: MELATONIN 3 MG TABLET PO (21:28)
[2023-05-04 02:22] LABS: Basophil# 0.06 X10^3/uL; Basophil% 0.5 % (0-1); Eosinophil# 0.37 X10^3/uL; Eosinophils% 3.3 % (0-5); Hematocrit 29.5 % (40-54); Hemoglobin 9.1 g/dL (13.0-16.5); Lymphocyte % 13.2 % (19-41); Mean Corp Hgb Conc 30.8 g/dL (32-36); Mean Corpuscular Hgb 26.4 pg (27.0-32.0); Mean Corpuscular Volume 85.5 fL (80-94); Mean Platelet Vol. 9.3 fl (6.2-12.0); Monocyte# 1.26 X10^3/uL; Monocyte% 11.1 % (0-10); NRBC Flagged by Analyzer 0 % (0-5); Neutrophil # 7.96 X10^3/uL (2.7-7.7); Neutrophil % 69.9 % (47-70); Platelet Count 295 K/mm3 (150-450); RBC Distribution Width CV 14.7 % (11.6-14.6); RBC Distribution Width SD 45.9 fl (35.1-43.9); Red Blood Count 3.45 M/mm3 (4.6-6.2); White Blood Count 11.4 K/mm3 (4.4-11.0)
[2023-05-04 02:37] LABS: Anion Gap 7 (5-15); BUN 15 mg/dL (7-18); BUN/Creat Ratio 17.7 RATIO (10-20); Calcium,Total 8.3 mg/dL (8.5-10.1); Chloride 106 mmol/L (98-107); Creatinine, Serum 0.85 mg/dL (0.70-1.30); EST Glomerular Filtration Rate 92 mL/min (>60); Est Glom Filt Rate - Afr Amer 111 mL/min (>60); Estimated Creatinine Clearance 67.99 ml/min; Glucose 117 mg/dL (74-106); Potassium 3.7 mmol/L (3.5-5.1); Sodium Level 138 mmol/L (136-145)
[2023-05-04 02:49] LABS: Gentamicin, Random < 0.2 ug/mL
[2023-05-04] MEDS: DEXTROSE 5% IVPB ×2 (04:24→22:36)
[2023-05-04] MEDS: GENTAMICIN IVPB ×2 (04:24→22:36)
[2023-05-04] MEDS: WATER IVPB ×2 (04:24→22:36)
[2023-05-04 04:26] VITALS: BP 139/100; PULSE 98; RESP 16; TEMP 36.7; O2SAT 96
--- NOTE | 2023-05-04 04:56 | PCM.RX.CS ---
Consult Antibiotic Management Pharmacy has been consulted to manage selected antibiotic: Gentamicin Type of Intervention Type of Consult: Follow-up Labs Labs: Sodium 138 mmol/L (136-145) 05/04/23 02:11 Potassium 3.7 mmol/L (3.5-5.1) 05/04/23 02:11 Chloride 106 mmol/L (98-107) 05/04/23 02:11 Carbon Dioxide 25.0 mmol/L (21.0-32.0) 05/04/23 02:11 Anion Gap 7 (5-15) 05/04/23 02:11 BUN 15 mg/dL (7-18) 05/04/23 02:11 Creatinine 0.85 mg/dL (0.70-1.30) 05/04/23 02:11 Est GFR (MDRD) Af Amer 111 mL/min (>60) 05/04/23 02:11 Est GFR (MDRD) Non-Af 92 mL/min (>60) 05/04/23 02:11 BUN/Creatinine Ratio 17.7 RATIO (10-20) 05/04/23 02:11 Glucose 117 mg/dL (74-106) H 05/04/23 02:11 Gentamicin Trough 1.9 ug/mL (<2.0) 05/03/23 14:00 Random Gentamicin < 0.2 ug/mL 05/04/23 02:11 Vancomycin Trough 12.6 ug/mL (5.0-15.0) 05/02/23 12:47 Microbiology Microbiology: Microbiology 04/30/23 08:20 Blood Culture (Wb) - Anticubital Right Blood Culture - Preliminary Staphylococcus aureus 04/30/23 08:24 Blood Culture (Wb) - Right Hand Blood Culture - Preliminary Staphylococcus aureus 05/02/23 14:00 Blood Culture (Wb) - Right Forearm Blood Culture - Preliminary 04/28/23 23:20 Urine Catheter - Catheter Urine Culture - Final Escherichia coli 04/30/23 08:24 Blood Culture (Wb) - Anticubital Right Bacteria Detection (PCR) - Final 04/28/23 22:35 Blood Culture (Wb) - Anticubital Left Blood Culture - Final Staphylococcus aureus 04/28/23 22:45 Blood Culture (Wb) - Right Hand Bacteria Detection (PCR) - Final Staphylococcus aureus 04/28/23 22:45 Blood Culture (Wb) - Right Hand Blood Culture - Final Staphylococcus aureus 04/28/23 23:04 Nasal Secretion SARS-CoV-2 & FLU Antigen (Rapid) - Final Pharmacy Plan for Drug Dosing Pharmacy Plan for Drug Dosing: Pharmacy Service will continue to monitor and adjust dosing as required. RANDOM LEVEL >0.2 AT 19 HOURS. RESTART 90MG Q18H AND FOLLOW UP TROUGH PRIOR TO 3RD DOSE Follow-Up Labs Follow-Up Labs: Trough: Gentamicin Date/Time Labs Ordered Labs to be done on [date and time ordered]: 05/05 @0539
[2023-05-04] MEDS: Cefazolin 2 GM in 0.9% Normal Saline (100mL Bag) 100 ML IV ×3 (05:38→21:29)
[2023-05-04 09:51] VITALS: BP 137/89; PULSE 122; RESP 18; TEMP 37.8; O2SAT 98
[2023-05-04 09:53] VITALS: PULSE 122
[2023-05-04] MEDS: APIXABAN 5 MG TABLET PO ×2 (09:53→21:25)
[2023-05-04] MEDS: Pantoprazole Sodium 20 MG Tablet PO (09:53)
[2023-05-04] MEDS: Tamsulosin HCl 0.4 MG Capsule 0.400000000000000022 MG PO (09:53)
[2023-05-04] MEDS: Multivitamins,Ther W-Minerals Tablet 1 TABLET PO (09:53)
[2023-05-04] MEDS: Finasteride 5 MG Tablet PO (09:53)
[2023-05-04] MEDS: Cholecalciferol (Vit D3) 125 MCG CAPSULE (5,000 UNITS) PO (09:53)
[2023-05-04] MEDS: Metoprolol(XL)Succ 50 MG Tablet PO (09:53)
[2023-05-04] MEDS: dilTIAZem CD 120 MG Capsule PO (09:53)
--- NOTE | 2023-05-04 10:57 | PN_ITS ---
Subjective Subjective Patient seen and examined. HE had no active complaints and had an uneventful night. Review of sysems is otherwise negative. HE still has mild tachycardia. Review of systems is otherwise negative. Objective Data Objective Data Vital Signs: Vital Signs Temp Pulse Resp BP Pulse Ox O2 Del Method O2 Flow Rate 100.1 F H 122 H 18 137/89 H 98 Room Air 2 05/04/23 09:51 05/04/23 09:53 05/04/23 09:51 05/04/23 09:51 05/04/23 09:51 05/04/23 09:51 05/02/23 06:00 Oxygen Flow Rate (L/min) 2 Oxygen Delivery Method Room Air Weight: 249 lb 6.4 oz Body Mass Index (BMI) 35.7 Intake & Output: Intake and Output for Last 24 Hours 05/02/23 05/03/23 05/04/23 23:59 23:59 23:59 Intake Total 1493.08 / 1493.08 1202.25 / 1202.25 162.25 / 162.25 Output Total 2950 / 2950 2300 / 2300 1440 / 1440 Balance -1456.92 / -1456.92 -1097.75 / -1097.75 -1277.75 / -1277.75 Lab / Micro Data 05/04/23 02:11 05/04/23 02:11 Labs: Laboratory Results - last 24 hr 05/03/23 14:00: Gentamicin Trough 1.9 05/04/23 02:11: WBC 11.4 H, RBC 3.45 L, Hgb 9.1 L, Hct 29.5 L, MCV 85.5, MCH 26.4 L, MCHC 30.8 L D, RDW Std Deviation 45.9 H, RDW Coeff of Marta 14.7 H, Plt Count 295, MPV 9.3, Immature Gran % (Auto) 2.000 H, Neut % (Auto) 69.9, Lymph % (Auto) 13.2 L, Fountain % (Auto) 11.1 H, Eos % (Auto) 3.3, Baso % (Auto) 0.5, Absolute Neuts (auto) 8.0 H, Absolute Lymphs (auto) 1.50, Nucleated RBC % 0, Sodium 138, Potassium 3.7, Chloride 106, Carbon Dioxide 25.0, Anion Gap 7, BUN 15, Creatinine 0.85, Estim Creat Clear Calc 67.99, Est GFR (MDRD) Af Amer 111, Est GFR (MDRD) Non-Af 92, BUN/Creatinine Ratio 17.7, Glucose 117 H, Calcium 8.3 L, Random Gentamicin < 0.2 Micro: Microbiology 04/30/23 08:20 Blood Culture (Wb) - Anticubital Right Blood Culture - Preliminary Staphylococcus aureus 04/30/23 08:24 Blood Culture (Wb) - Right Hand Blood Culture - Preliminary Staphylococcus aureus 05/02/23 14:00 Blood Culture (Wb) - Right Forearm Blood Culture - Preliminary 04/28/23 23:20 Urine Catheter - Catheter Urine Culture - Final Escherichia coli 04/30/23 08:24 Blood Culture (Wb) - Anticubital Right Bacteria Detection (PCR) - Final 04/28/23 22:35 Blood Culture (Wb) - Anticubital Left Blood Culture - Final Staphylococcus aureus 04/28/23 22:45 Blood Culture (Wb) - Right Hand Bacteria Detection (PCR) - Final Staphylococcus aureus 04/28/23 22:45 Blood Culture (Wb) - Right Hand Blood Culture - Final Staphylococcus aureus 04/28/23 23:04 Nasal Secretion SARS-CoV-2 & FLU Antigen (Rapid) - Final Radiography Diagnostic Testing: Radiology Impression Transesophageal Echocardiogram 04/30/23 07:24 Interpretation Summary Transesophageal echocardiogram Patient sedated with 1 mg of Versed and 25 mcg of fentanyl. Mobile structure was noted proximal to the aortic valve Suspicious for vegetation The bioprosthetic aortic valve appears normal Mild aortic regurgitation noted Mitral, tricuspid valve showed no evidence of vegetation Bubble study performed with no intracardiac shunt Conclusion recommendation; Mobile structure noted proximal to the aortic valve suspicious for, to consider treatment for infective endocarditis Recommend repeat transthoracic echocardiogram following completion of antibiotic therapy Ordering Physician: Raina Nair Referring Physician: Darrin Ramirez Performed By: Umm Espinosa, CHYNACS, RVT Physical Exam Const alert, oriented x3, no apparent distress and average body habitus Constitutional Narrative: frail General Appearance: cooperative and well developed Orientation / Consciousness: confused and disoriented HEENT normocephalic, head/scalp atraumatic, hearing grossly normal bilaterally, moist oral mucous membranes and oropharynx normal Eyes PERRL, EOMs intact bilaterally and conjunctivae normal Neck no lymphadenopathy and supple Lymph Lymphatic: no lymphadenopathy noted, no lymphedema noted and lymphedema Resp normal respiratory effort, normal air movement, no retractions, no use of accessory muscles and clear to auscultation bilaterally Effort and Inspection: tachypneic and respiratory distress Cardio regular rhythm, S1 normal heart sound and S2 normal heart sound Cardio Narrative: tachycardic, has a grade 2-3 murmur at the aortic valve area GI normal to inspection, nondistended, normoactive bowel sounds, soft to palpation, non-tender and non-distended Extremity normal to inspection, full ROM, normal capillary refill, no clubbing, cyanosis or edema and no calf tenderness General Extremity: no tenderness to palpation of joints or extremities Skin General Skin Exam: no breakdown Neuro CN's II-XII intact bilaterally, moves all extremities, no focal motor deficits, no sensory deficits noted and deep tendon reflexes 2+ bilaterally Sensorium / Orientation: awake, alert and oriented to person Speech: speech normal Motor Exam: strength 5/5 throughout and general weakness Psych thought process normal, cooperative and affect normal Appearance: appropriate Assessment & Plan Assessment/Plan (1) Acute kidney injury: (2) Urinary tract infection: QUALIFIERS: Urinary tract infection type: acute cystitis Hematuria presence: with hematuria Qualified Code(s): N30.01 - Acute cystitis with hematuria (3) Metabolic encephalopathy: PLAN: Plan #bacteremia in the setting of UTI * Urinalysis showed evidence of UTI. * 4 out of 4 blood cultures positive for gram-positive cocci. * ID on board; Antibiotics switched to IV cefazolin and gentamycin * urine cultures grew E coli;repeat blood cultures still growing Staph aureus. * #Infective endocarditis * blood cultures positive for Staph aureus. Repeat blood cultures still positive for Staph aureus * 2D echo showed a bioprosthetic aortic valve with possible mobile mass on aortic valve measuring 2.1 x 0.5cm * on IV vancomycin.repeat blood cultures still positive for MSSA * ID on board. Had KAROLINA which showed evidence of vegetation on the bioprosthetic aortic valve * ID to determine how long he should be on antibiotics. * #Afib * RVR resolved. * now off cardizem drip * patient complained of chest pain. but said the pain was generalised as well. * cardiology on board * 2D echo showed evidence of moderate concentric LVH with normal LVSF and EF of 55-60%, as well as no regional wall motion abnormalities. * management as per cardiology * CTA chest done showed evidence of PE within the distal branches leading to the left lower lobe; no proximal PE noted, and no right heart strain. * now on eliquis. On PO cardizem * * #Nonstemi * Patient complained of some chest pain. Initial troponin was 340 but trended down to 210. * 2D echo as above. Cardiology on board. There was likely a type II due to STEMI due to A-fib with RVR. * A-fib with RVR is resolved, patient now on Eliquis. * #UTI: As above #Acute encephalopathy: resolved. #ZAHEER: Resolved. #History of prostate cancer: Follow-up with urology on outpatient basis. #Debility and weakness likely due to cancer and acute infection: PT OT consulted. Fall precautions. #Benign essential hypertension. IV hydralazine as needed. On metoprolol #BPH: On tamsulosin and finasteride #Hyperlipidemia: On statin #History of aortic stenosis: S/p TAVR. Stable. #GERD: On PPI DVT prophylaxis: eliquis Total time spent on evaluation and management of patient, reviewing chart, discussing plan with patient, discussion with nursing and ancillary staff as well as documentation: 37 mins Charges/Coding Visit Charges Inpatient E&M: 10817 Subs Hosp L2
--- NOTE | 2023-05-04 12:00 | CASEMGMT ---
Social Work This insurance writer received notice that [facility] transitional care unit now has a bed availability. This insurance writer asked broadcast traffic coordinator to review patient for admission then. Received word back from [facility] that can accept patient. This insurance writer learned that patient is going to need a PICC line and IV antibiotics. This insurance writer met with patient, patient's Mariola daughter Laura and Laura's to discuss discharge planning. Introduced self to patient's . Discussed patient's care needs, and recommendations for long-term facility. Discussed home healthcare and what this would entail. This insurance writer focused conversation towards patient and patient's , so as both could feel some control in this situation in decision-making process. Much conversation ensued, and the did become tearful, but was able to clearly expressed to the patient feeling that a long-term facility was the right thing to do in light of patient needing the IV antibiotics. Educated that the hospital's transitional care unit now has a bed to consider the patient, and that [facility] has already accepted the patient. After family discussed between themselves, in light of having family at [facility] in the past, decision made to go with the last two manner as first choice. Patient in agreement with plan. Much emotional support provided to both patient and patient's . Laura and Laura's did follow this insurance writer out of the room, and think this insurance writer your time taken today and including the patient and patient's in the discussion to come to this decision. Updated transitional care unit admissions that referral to [facility] transitional care unit no longer needed. Updated discharge strategic planning analyst that [facility] is facility of choice. Plan: intermediate facility stay, short-term at [facility]. -VOLODYMYR Armijo, DANIS *This note was generated with InSequentation software. It may contain incorrect words, spelling, and punctuation that were not noted in review of the chart prior to signing*
[2023-05-04 15:50] VITALS: BP 129/82; PULSE 114; RESP 18; TEMP 37.6; O2SAT 97
[2023-05-04 21:19] VITALS: BP 123/99; PULSE 109; RESP 16; TEMP 36.8; O2SAT 96
[2023-05-04] MEDS: Acetaminophen 325 MG Tablet 650 MG PO (21:25)
[2023-05-04] MEDS: 0.9% Saline Lock 10 ML Syringe IV ×2 (21:26→22:35)
[2023-05-04] MEDS: MELATONIN 3 MG TABLET PO (21:32)
[2023-05-05 03:07] VITALS: BP 130/99; PULSE 109; RESP 16; TEMP 36.8; O2SAT 97
[2023-05-05] MEDS: Cefazolin 2 GM in 0.9% Normal Saline (100mL Bag) 100 ML IV ×3 (05:25→21:37)
[2023-05-05 06:19] LABS: Absolute Lymphocyte Count 1.51 X10^3/uL (0.83-4.51); Absolute Neutrophil Count 7.8 X10^3/uL (2.0-7.7); Basophil# 0.04 X10^3/uL; Basophil% 0.4 % (0-1); Eosinophil# 0.36 X10^3/uL; Eosinophils% 3.2 % (0-5); Hematocrit 29.3 % (40-54); Hemoglobin 9.2 g/dL (13.0-16.5); Lymphocyte # 1.51 X10^3/ul (0.83-4.51); Lymphocyte % 13.5 % (19-41); Mean Corp Hgb Conc 31.4 g/dL (32-36); Mean Corpuscular Hgb 26.7 pg (27.0-32.0); Mean Corpuscular Volume 85.2 fL (80-94); Mean Platelet Vol. 9.2 fl (6.2-12.0); Monocyte# 1.22 X10^3/uL; Monocyte% 10.9 % (0-10); NRBC Flagged by Analyzer 0 % (0-5); Neutrophil # 7.76 X10^3/uL (2.7-7.7); Neutrophil % 69.2 % (47-70); Platelet Count 319 K/mm3 (150-450); RBC Distribution Width CV 14.9 % (11.6-14.6); RBC Distribution Width SD 46.2 fl (35.1-43.9); Red Blood Count 3.44 M/mm3 (4.6-6.2); White Blood Count 11.2 K/mm3 (4.4-11.0)
[2023-05-05 06:44] LABS: Anion Gap 5 (5-15); BUN 13 mg/dL (7-18); BUN/Creat Ratio 13.9 RATIO (10-20); Chloride 104 mmol/L (98-107); Creatinine, Serum 0.93 mg/dL (0.70-1.30); EST Glomerular Filtration Rate 82 mL/min (>60); Est Glom Filt Rate - Afr Amer 99 mL/min (>60); Estimated Creatinine Clearance 62.14 ml/min; Glucose 115 mg/dL (74-106); Potassium 3.5 mmol/L (3.5-5.1); Sodium Level 135 mmol/L (136-145)
[2023-05-05 09:05] VITALS: BP 126/89; PULSE 102; RESP 16; TEMP 36.6; O2SAT 98
[2023-05-05 09:09] VITALS: PULSE 121
[2023-05-05] MEDS: Metoprolol(XL)Succ 50 MG Tablet PO (09:09)
[2023-05-05] MEDS: APIXABAN 5 MG TABLET PO ×2 (09:09→21:37)
[2023-05-05] MEDS: Finasteride 5 MG Tablet PO (09:10)
[2023-05-05] MEDS: Pantoprazole Sodium 20 MG Tablet PO (09:10)
[2023-05-05] MEDS: Multivitamins,Ther W-Minerals Tablet 1 TABLET PO (09:10)
[2023-05-05] MEDS: Cholecalciferol (Vit D3) 125 MCG CAPSULE (5,000 UNITS) PO (09:10)
[2023-05-05] MEDS: dilTIAZem CD 120 MG Capsule PO (09:10)
[2023-05-05] MEDS: Tamsulosin HCl 0.4 MG Capsule 0.400000000000000022 MG PO (09:10)
--- NOTE | 2023-05-05 10:03 | PN_ITS ---
Subjective Subjective Patient seen and examined. He said he was able to get some good sleep overnight. He had no active complaints. Patient was noted to be agreeable to placement but now asking if he can go home. Review of those otherwise negative. He still remains tachycardic this morning. Objective Data Objective Data Vital Signs: Vital Signs Temp Pulse Resp BP Pulse Ox O2 Del Method O2 Flow Rate 97.9 F 121 H 16 126/89 H 98 Room Air 2 05/05/23 09:05 05/05/23 09:09 05/05/23 09:05 05/05/23 09:05 05/05/23 09:05 05/05/23 09:05 05/02/23 06:00 Oxygen Flow Rate (L/min) 2 Oxygen Delivery Method Room Air Weight: 249 lb 6.4 oz Body Mass Index (BMI) 35.7 Intake & Output: Intake and Output for Last 24 Hours 05/03/23 05/04/23 05/05/23 23:59 23:59 23:59 Intake Total 1202.25 / 1202.25 1374.50 / 1374.50 110 / 110 Output Total 2300 / 2300 3115 / 3115 1500 / 1500 Balance -1097.75 / -1097.75 -1740.50 / -1740.50 -1390 / -1390 Lab / Micro Data 05/05/23 05:48 05/05/23 05:48 Labs: Laboratory Results - last 24 hr 05/05/23 05:48: WBC 11.2 H, RBC 3.44 L, Hgb 9.2 L, Hct 29.3 L, MCV 85.2, MCH 26.7 L, MCHC 31.4 L, RDW Std Deviation 46.2 H, RDW Coeff of Marta 14.9 H, Plt Count 319, MPV 9.2, Immature Gran % (Auto) 2.800 H, Neut % (Auto) 69.2, Lymph % (Auto) 13.5 L, Tyrrell % (Auto) 10.9 H, Eos % (Auto) 3.2, Baso % (Auto) 0.4, Absolute Neuts (auto) 7.8 H, Absolute Lymphs (auto) 1.51, Nucleated RBC % 0, Sodium 135 L, Potassium 3.5, Chloride 104, Carbon Dioxide 26.0, Anion Gap 5, BUN 13, Creatinine 0.93, Estim Creat Clear Calc 62.14, Est GFR (MDRD) Af Amer 99, Est GFR (MDRD) Non-Af 82, BUN/Creatinine Ratio 13.9, Glucose 115 H, Calcium 9.0 Micro: Microbiology 04/30/23 08:20 Blood Culture (Wb) - Anticubital Right Blood Culture - Final Staphylococcus aureus 04/30/23 08:24 Blood Culture (Wb) - Right Hand Blood Culture - Final Staphylococcus aureus 05/02/23 14:00 Blood Culture (Wb) - Right Forearm Blood Culture - Final Staphylococcus schleiferi 04/28/23 23:20 Urine Catheter - Catheter Urine Culture - Final Escherichia coli 04/30/23 08:24 Blood Culture (Wb) - Anticubital Right Bacteria Detection (PCR) - Final 04/28/23 22:35 Blood Culture (Wb) - Anticubital Left Blood Culture - Final Staphylococcus aureus 04/28/23 22:45 Blood Culture (Wb) - Right Hand Bacteria Detection (PCR) - Final Staphylococcus aureus 04/28/23 22:45 Blood Culture (Wb) - Right Hand Blood Culture - Final Staphylococcus aureus 04/28/23 23:04 Nasal Secretion SARS-CoV-2 & FLU Antigen (Rapid) - Final Physical Exam Const alert, oriented x3, no apparent distress and average body habitus Constitutional Narrative: frail General Appearance: cooperative and well developed Orientation / Consciousness: confused and disoriented HEENT normocephalic, head/scalp atraumatic, hearing grossly normal bilaterally, moist oral mucous membranes and oropharynx normal Eyes PERRL, EOMs intact bilaterally and conjunctivae normal Neck no lymphadenopathy and supple Lymph Lymphatic: no lymphadenopathy noted, no lymphedema noted and lymphedema Resp normal respiratory effort, normal air movement, no retractions, no use of accessory muscles and clear to auscultation bilaterally Cardio regular rhythm, S1 normal heart sound and S2 normal heart sound Cardio Narrative: tachycardic, has a grade 2-3 murmur at the aortic valve area GI normal to inspection, nondistended, normoactive bowel sounds, soft to palpation, non-tender and non-distended Extremity normal to inspection, full ROM, normal capillary refill, no clubbing, cyanosis or edema and no calf tenderness General Extremity: no tenderness to palpation of joints or extremities Skin General Skin Exam: no breakdown Neuro CN's II-XII intact bilaterally, moves all extremities, no focal motor deficits, no sensory deficits noted and deep tendon reflexes 2+ bilaterally Sensorium / Orientation: awake, alert and oriented to person Speech: speech normal Motor Exam: strength 5/5 throughout and general weakness Psych thought process normal, cooperative and affect normal Appearance: appropriate Assessment & Plan Assessment/Plan (1) Acute kidney injury: (2) Urinary tract infection: QUALIFIERS: Urinary tract infection type: acute cystitis Hematuria presence: with hematuria Qualified Code(s): N30.01 - Acute cystitis with hematuria (3) Metabolic encephalopathy: PLAN: Plan #bacteremia in the setting of UTI * Urinalysis showed evidence of UTI. * 4 out of 4 blood cultures positive for gram-positive cocci. * ID on board; Antibiotics switched to IV cefazolin and gentamycin * urine cultures grew E coli;repeat blood cultures still growing Staph aureus. * #Infective endocarditis * blood cultures positive for Staph aureus. Repeat blood cultures still positive for Staph aureus * 2D echo showed a bioprosthetic aortic valve with possible mobile mass on aortic valve measuring 2.1 x 0.5cm * on IV vancomycin.repeat blood cultures still positive for MSSA * ID on board. Had KAROLINA which showed evidence of vegetation on the bioprosthetic aortic valve * ID to determine how long he should be on antibiotics. * #Afib * RVR resolved. * cardiology on board * 2D echo showed evidence of moderate concentric LVH with normal LVSF and EF of 55-60%, as well as no regional wall motion abnormalities. * management as per cardiology * CTA chest done showed evidence of PE within the distal branches leading to the left lower lobe; no proximal PE noted, and no right heart strain. * now on eliquis. On PO cardizem * Still has intermittent tachycardia. * * #Nonstemi * Patient complained of some chest pain. Initial troponin was 340 but trended down to 210. * 2D echo as above. Cardiology on board. There was likely a type II due to STEMI due to A-fib with RVR. * A-fib with RVR is resolved, patient now on Eliquis. * #UTI: As above #Acute encephalopathy: resolved. #ZAHEER: Resolved. #History of prostate cancer: Follow-up with urology on outpatient basis. #Debility and weakness likely due to cancer and acute infection: PT OT consulted. Fall precautions. #Benign essential hypertension. IV hydralazine as needed. On metoprolol #BPH: On tamsulosin and finasteride #Hyperlipidemia: On statin #History of aortic stenosis: S/p TAVR. Stable. #GERD: On PPI DVT prophylaxis: eliquis Total time spent on evaluation and management of patient, reviewing chart, d iscussing plan with patient, discussion with nursing and ancillary staff as well as documentation: 35 mins Disposition: Awaiting placement Charges/Coding Visit Charges Inpatient E&M: 02227 Subs Hosp L2
--- NOTE | 2023-05-05 12:44 | CASEMGMT ---
SW met with patient. Introduced self and role at [facility]. SW asked patient about going to [place]. Patient asked if he could go back and forth to [place] so he could sleep at home. SW told patient he would not be able to get his IV antibiotics at [place] without staying there as a patient. Patient verbalized understanding and was agreeable to going to [place]. SW notified physician. Plan: d/c to [place] Yuly CAMACHO
--- NOTE | 2023-05-05 13:44 | CASEMGMT ---
Discharge Planning IV scripts sent to [facility] via [employer]. Bethanie Moralez, Discharge Planning Asst.
--- NOTE | 2023-05-05 14:01 | PCM.PN.ID ---
Physical Exam Narrative Feeling better, no fever, no n/v/d. Const alert and no apparent distress General Appearance: cooperative Resp normal air movement and clear to auscultation bilaterally Cardio regular rate and regular rhythm GI soft to palpation, non-tender and non-distended Skin no rashes or lesions noted ID ID: Route of nutrition/ use of supplements: [] Nutritional Intake: [] IV Site: [] [place] Catheter: [] Assessment & Plan Assessment/Plan (1) Prosthetic valve endocarditis: PLAN: KAROLINA with vegetation seen by aortic valve; discussed with cardiology. CTA shows PE. Repeat bcx cleared 05/02; grew CoNS that day. Will order picc. Cont cefazolin (stop date 06/13/23) with gent for synergy (stop date 05/16/23). Not giving rifampin due to multiple drug interactions. ID followup in 2 weeks. Will follow, wrote rx, d/w nurse case manager (2) MSSA bacteremia:
--- NOTE | 2023-05-05 14:26 | CHAPLAIN ---
Type of Pastoral Visit ___ Initial Visit _x__ Follow-up Visit ___ On-call Visit ___ General Patient Visit ___ Spiritual Assessment ___ Family Conference ___ Bereavement ___ Rapid Response ___ Code Blue ___ Other (describe below) Pastoral Care Referral From _x__ Patient ___ Family ___ Nurse ___ Physician ___ Medical Administrative Specialist ___ Manager Category ___ Other (describe below) Sacrament/Intervention _x__ Active listening ___ Anointing ___ Congregational ___ Bereavement ___ Communion ___ Gisele exploration ___ ___ Life review ___ Prayer ___ Reconciliation ___ Sacrament of Sick ___ Supportive presence ___ Wedding ___ Other (describe below) Pastoral Comments patient is to be discharged to an SNF for rehab today; pt is going to call his now; pt is offered support; prayer is welcomed
--- NOTE | 2023-05-05 16:00 | RAD_ITS ---
EXAM: XR CHEST, 1 VIEW CLINICAL INDICATION: picc placement TECHNIQUE: Frontal view of the chest. COMPARISON: 04/28/2023 FINDINGS: LUNGS AND PLEURAL SPACES: Mild pulmonary vascular congestion. No pneumothorax. No effusion. HEART: Borderline cardiomegaly and/or pericardial effusion may be exaggerated secondary to technique. MEDIASTINUM: Central airways and mediastinal contour are unremarkable. BONES/JOINTS: Degenerative changes in the spine and shoulders. No acute fracture. SOFT TISSUES: No significant abnormality. TUBES, LINES AND DEVICES: Right upper extremity PICC with tip overlying the SVC. RAD/CXR for Line Placement IMPRESSION: 1. Borderline cardiomegaly and/or pericardial effusion may be exaggerated secondary to technique. 2. Mild pulmonary vascular congestion. Electronically Signed: Claudy Kwong DO at 16:51 EST ,
--- NOTE | 2023-05-05 16:38 | CASEMGMT ---
Patient will be discharged to [place] under skilled level of care on a PASRR. Yuly CAMACHO
[2023-05-05 16:52] VITALS: BP 128/82; PULSE 128; RESP 17; TEMP 36.7; O2SAT 99
[2023-05-05 16:54] VITALS: PULSE 128
[2023-05-05] MEDS: Metoprolol(XL)Succ 25 MG Tablet PO (16:54)
[2023-05-05] MEDS: 0.9% Saline Lock 10 ML Syringe IV ×3 (16:55→19:31)
--- NOTE | 2023-05-05 17:04 | PRO.PCM_ITS ---
Procedure Report Date of Procedure: 05/05/23 Assessment & Plan Assessment/Plan (1) MSSA bacteremia: Procedures Radiology Radiology Access Procedures: PICC Procedure Time Out Time Out Informed consent given: Yes Consent signed: Yes Time out checklist: patient, procedure, site marked/identified, positioning of patient, supplies available and allergies confirmed Time out verified: Yes Time out date: 05/05/23 Time out time: 14:54 PICC Line Consent Screening tool completed:: Yes Consent obtained:: Yes Consent given by (patient or responsible constitution party):: patient Line successful (if no, document why in comments):: Yes Insertion Reason for Insertion: [employer] Associate Medication Date of Insertion: 05/05/23 Ok to use: Yes Type of PICC inserted: Dual Power PICC PICC Lot #: [id number] PICC Reference #: [id number] Microintroducer Used: Yes (NOT included in Kit) Ultrasound/Equipment Used: Probe Cover Kit Trimmed Length (cm): 45 Insertion Length (cm): 45 Exposed Length (cm): 0 Tip Placement: SVC (Superior Vena Cava) Placement Confirmation: Xray Insertion Vein: Right Basilic Insertion Attempts: 1 Local Anesthesia Used: Lidocaine 1% (in kit) Dressing Applied: Statlock and Tegaderm CHG Arm Measurement above site (in cm): 35 Patient Tolerated Procedure: Well Threading Difficulties: No Comments Comment: Patient identity was verified with two patient identifiers. Informed consent was obtained and time-out was completed. Hands were sanitized. The patient was positioned supine with right arm at 90 degrees. The patient's upper arm vasculature was assessed using ultrasound, and the right basilic vein was externally marked. An external measurement was obtained of 45 cm. External leads were applied to the patient's right upper chest and laterally and inferior of the umbilicus on the mid axillary line. Cap, mask, and prep gloves were donned. The underdrape was placed under the patient's arm. The site was prepped with chlorhexidine, and tourniquet was loosely applied. Prep gloves were discarded, and hands were sanitized. The sterile kit was opened with additional supplies dropped in. Sterile gown and gloves were donned, and the patient was draped. The sterile kit was assembled with all needle, introducer, connector, and catheter flushed with sterile normal saline. The marked site of insertion was anesthetized with 1% lidocaine. Patient tolerated well. The right basilic vein was then accessed using ultrasound guidance and guidewire was inserted to safety ray. The tourniquet was released. The access needle was removed while securing the guidewire in place. The site was again anesthetized with 1% lidocaine, prior to insertion of introducer sheath and dilator. Patient tolerated well. The catheter was trimmed to a length of 45 cm. Using 3C guidance, the catheter was then inserted through the introducer sheath, slowly. There was no resistance on insertion. 3 CG technology was used to verify proper tip advancement. However, the patient was in atrial fibrillation, so a chest x- ray will be obtained. The introducer sheath was retracted and peeled away, incrementally, while keeping the catheter secured. The stylet was removed. A flushed needleless connector was attached to each lumen. Blood return was verified and each lumen was flushed with sterile normal saline in a pulsatile fashion. Total sterile flushes used for the insertion was 6 10 ml syringes, 2 from the kit. Finally, the insertion site was cleaned with chlorhexidine, and the catheter was secured using a StatLock. The site was covered with a Tegaderm CHG Dressing. Baseline arm circumference was obtained at the insertion site and measured 35 cm. The patient was provided with homegoing instructions on PICC line care and verbalized understanding of infection prevention, heavy lifting restriction, maintaining mobility, and watching for any signs of infection.
[2023-05-05 18:08] LABS: Gentamicin, Conv. Trough 0.2 ug/mL (<2.0)
[2023-05-05] MEDS: DEXTROSE 5% IVPB (18:27)
[2023-05-05] MEDS: WATER IVPB (18:27)
[2023-05-05] MEDS: GENTAMICIN IVPB (18:27)
--- NOTE | 2023-05-05 18:45 | PCM.RX.CS ---
Consult Antibiotic Management Pharmacy has been consulted to manage selected antibiotic: Gentamicin Type of Intervention Type of Consult: Follow-up Suspected Infection Suspected Infection: Endocarditis Labs Labs: Sodium 135 mmol/L (136-145) L 05/05/23 05:48 Potassium 3.5 mmol/L (3.5-5.1) 05/05/23 05:48 Chloride 104 mmol/L (98-107) 05/05/23 05:48 Carbon Dioxide 26.0 mmol/L (21.0-32.0) 05/05/23 05:48 Anion Gap 5 (5-15) 05/05/23 05:48 BUN 13 mg/dL (7-18) 05/05/23 05:48 Creatinine 0.93 mg/dL (0.70-1.30) 05/05/23 05:48 Est GFR (MDRD) Af Amer 99 mL/min (>60) 05/05/23 05:48 Est GFR (MDRD) Non-Af 82 mL/min (>60) 05/05/23 05:48 BUN/Creatinine Ratio 13.9 RATIO (10-20) 05/05/23 05:48 Glucose 115 mg/dL (74-106) H 05/05/23 05:48 Gentamicin Trough 0.2 ug/mL (<2.0) 05/05/23 16:50 Random Gentamicin < 0.2 ug/mL 05/04/23 02:11 Vancomycin Trough 12.6 ug/mL (5.0-15.0) 05/02/23 12:47 Microbiology Microbiology: Microbiology 05/03/23 12:23 Blood Culture (Wb) - Left Hand Blood Culture - Preliminary No growth in 48 hours. 04/30/23 08:20 Blood Culture (Wb) - Anticubital Right Blood Culture - Final Staphylococcus aureus 04/30/23 08:24 Blood Culture (Wb) - Right Hand Blood Culture - Final Staphylococcus aureus 05/02/23 14:00 Blood Culture (Wb) - Right Forearm Blood Culture - Final Staphylococcus schleiferi 04/28/23 23:20 Urine Catheter - Catheter Urine Culture - Final Escherichia coli 04/30/23 08:24 Blood Culture (Wb) - Anticubital Right Bacteria Detection (PCR) - Final 04/28/23 22:35 Blood Culture (Wb) - Anticubital Left Blood Culture - Final Staphylococcus aureus 04/28/23 22:45 Blood Culture (Wb) - Right Hand Bacteria Detection (PCR) - Final Staphylococcus aureus 04/28/23 22:45 Blood Culture (Wb) - Right Hand Blood Culture - Final Staphylococcus aureus 04/28/23 23:04 Nasal Secretion SARS-CoV-2 & FLU Antigen (Rapid) - Final Pharmacy Plan for Drug Dosing Pharmacy Plan for Drug Dosing: GENTAMICIN LEVEL RECEIVED Current Gentamicin Dose: 90 mg Q18H Number of Doses Received: 5 Gentamicin Level: 0.2 mcg/mL Hours Since Last Dose: 18 Renal Function: SCr 0.93 mL/min, CrCl 75.8 mL/min (using adjusted BW) Renal Function Trend: stable Gentamicin Plan/Comments: level is therapeutic at 0.2mcg/mL with a goal level <1 mcg/mL. Will continue current dosing a get a trough in 3 days. Pending Level: 05/08/23 @ 1800 Pharmacy Service will continue to monitor and adjust dosing as required.
[2023-05-05] MEDS: MELATONIN 3 MG TABLET PO (21:37)
[2023-05-05 21:56] VITALS: BP 121/94; PULSE 76; RESP 18; TEMP 36.5; O2SAT 97
[2023-05-05] MEDS: 0.9% Normal Saline (250mL Bag) 250 ML 15 ML IV (23:46)
[2023-05-06 00:57] VITALS: PULSE 129
[2023-05-06] MEDS: Metoprolol Tartrate 50 MG Tablet PO ×2 (00:57→09:01)
[2023-05-06 04:44] VITALS: BP 128/92; PULSE 108; RESP 18; TEMP 37; O2SAT 95
[2023-05-06] MEDS: Cefazolin 2 GM in 0.9% Normal Saline (100mL Bag) 100 ML IV ×2 (06:20→14:50)
[2023-05-06 08:29] LABS: Absolute Lymphocyte Count 1.76 X10^3/uL (0.83-4.51); Absolute Neutrophil Count 8.2 X10^3/uL (2.0-7.7); Basophil# 0.05 X10^3/uL; Basophil% 0.4 % (0-1); Eosinophil# 0.31 X10^3/uL; Eosinophils% 2.7 % (0-5); Hematocrit 28.9 % (40-54); Hemoglobin 8.8 g/dL (13.0-16.5); Lymphocyte # 1.76 X10^3/ul (0.83-4.51); Lymphocyte % 15.1 % (19-41); Mean Corp Hgb Conc 30.4 g/dL (32-36); Mean Corpuscular Hgb 26.2 pg (27.0-32.0); Mean Platelet Vol. 9.2 fl (6.2-12.0); Monocyte# 1.11 X10^3/uL; Monocyte% 9.5 % (0-10); NRBC Flagged by Analyzer 0 % (0-5); Neutrophil # 8.21 X10^3/uL (2.7-7.7); Neutrophil % 70.2 % (47-70); Platelet Count 362 K/mm3 (150-450); RBC Distribution Width CV 14.9 % (11.6-14.6); RBC Distribution Width SD 46.6 fl (35.1-43.9); Red Blood Count 3.36 M/mm3 (4.6-6.2); White Blood Count 11.7 K/mm3 (4.4-11.0)
[2023-05-06 08:45] LABS: Anion Gap 5 (5-15); BUN 16 mg/dL (7-18); BUN/Creat Ratio 16.4 RATIO (10-20); Calcium,Total 8.6 mg/dL (8.5-10.1); Chloride 103 mmol/L (98-107); Creatinine, Serum 0.98 mg/dL (0.70-1.30); EST Glomerular Filtration Rate 78 mL/min (>60); Est Glom Filt Rate - Afr Amer 94 mL/min (>60); Estimated Creatinine Clearance 58.97 ml/min; Glucose 112 mg/dL (74-106); Potassium 3.6 mmol/L (3.5-5.1); Sodium Level 134 mmol/L (136-145)
[2023-05-06 08:53] VITALS: BP 139/98; PULSE 116; RESP 17; TEMP 36.6; O2SAT 98
[2023-05-06 09:01] VITALS: PULSE 116
[2023-05-06] MEDS: Cholecalciferol (Vit D3) 125 MCG CAPSULE (5,000 UNITS) PO (09:01)
[2023-05-06] MEDS: Pantoprazole Sodium 20 MG Tablet PO (09:01)
[2023-05-06] MEDS: APIXABAN 5 MG TABLET PO (09:01)
[2023-05-06] MEDS: Tamsulosin HCl 0.4 MG Capsule 0.400000000000000022 MG PO (09:02)
[2023-05-06] MEDS: Finasteride 5 MG Tablet PO (09:02)
[2023-05-06] MEDS: Multivitamins,Ther W-Minerals Tablet 1 TABLET PO (09:02)
[2023-05-06] MEDS: dilTIAZem CD 120 MG Capsule PO (09:02)
--- NOTE | 2023-05-06 12:05 | TREXTCAR_ITS ---
Diet Diet Order/Speech Therapy: 05/02/23 11:39 Diet: Regular - General Is pt able to select menu?: No Routine Orders/Code Status Enema Type: Fleetz Enema Frequency: Daily PRN Suppository Type: Dulcolax 10mg Suppository Frequency: Daily PRN O2 Frequency: PRN Keep PO Greater than or Equal to (%): 90 Therapies Weight Bearing: Weight bearing as tolerated Physical Therapy: Eval and Treat Occupational Therapy: Eval and Treat Problem/Diagnosis (1) MSSA bacteremia: Status: Acute Code(s): R78.81 - Bacteremia; B95.61 - Methicillin susceptible Staphylococcus aureus infection as the cause of diseases classified elsewhere Plan #bacteremia in the setting of UTI * Urinalysis showed evidence of UTI. * 4 out of 4 blood cultures positive for gram-positive cocci. * ID on board; Antibiotics switched to IV cefazolin and gentamycin * urine cultures grew E coli;repeat blood cultures still growing Staph aureus. * #Infective endocarditis * blood cultures positive for Staph aureus. Repeat blood cultures still positive for Staph aureus * 2D echo showed a bioprosthetic aortic valve with possible mobile mass on aortic valve measuring 2.1 x 0.5cm * on IV vancomycin.repeat blood cultures still positive for MSSA * ID on board. Had KAROLINA which showed evidence of vegetation on the bioprosthetic aortic valve * ID to determine how long he should be on antibiotics. * #Afib * RVR resolved. * cardiology on board * 2D echo showed evidence of moderate concentric LVH with normal LVSF and EF of 55-60%, as well as no regional wall motion abnormalities. * management as per cardiology * CTA chest done showed evidence of PE within the distal branches leading to the left lower lobe; no proximal PE noted, and no right heart strain. * now on eliquis. On PO cardizem * Still has intermittent tachycardia. * * #Nonstemi * Patient complained of some chest pain. Initial troponin was 340 but trended down to 210. * 2D echo as above. Cardiology on board. There was likely a type II due to STEMI due to A-fib with RVR. * A-fib with RVR is resolved, patient now on Eliquis. * #UTI: As above #Acute encephalopathy: resolved. #ZAHEER: Resolved. #History of prostate cancer: Follow-up with urology on outpatient basis. #Debility and weakness likely due to cancer and acute infection: PT OT consulted. Fall precautions. #Benign essential hypertension. IV hydralazine as needed. On metoprolol #BPH: On tamsulosin and finasteride #Hyperlipidemia: On statin #History of aortic stenosis: S/p TAVR. Stable. #GERD: On PPI DVT prophylaxis: eliquis Total time spent on evaluation and management of patient, reviewing chart, discussing plan with patient, discussion with nursing and ancillary staff as well as documentation: 35 mins Disposition: Awaiting placement Allergies/Procedures Done in Hospital Allergies No Known Allergies Allergy (Verified 04/27/23 12:13) Procedures: 2-D Echocardiogram and Transesophageal Echo Type of Care/Length of Stay Estimated LOS: Convalescent Care Less Than 30 days Type of Care Needed: Skilled Rehab Potential: Good Prognosis: Good Additional Orders/Day of Discharge Day of Discharge: 05/06/23 Dietary and Speech Recommendations Dietitian Recommendations/Changes: Continue with Regular diet for liberalization at this time; cardiac diet as PO improves w/ meals. ONS as needed if PO declines below 50% meals. Discharge Plan Admission Admit Date/Time: 04/29/23 00:59 Primary Reason for Your Visit: infective endocarditis Attending Provider: Raina Nair Primary Care Provider: Darrin Ramirez Consulting Providers: Mark Jesus; Mark Jose; Lisa Lemons; Sravanthi Santamaria; Daniella Osorio CLAY DRY PRESS HELPER; Suresh Mendosa; James Flores Discharge Orders/Prescriptions Prescriptions: New cefazolin 2 gram recon soln 2 g IV Q8H 38 Days Rx Instructions: dx: endocarditis stop date 06/13/23 labs on Mondays and : bmp, LFT, cbc, gentamicin trough. Fax to [phone]. Routine picc care per protocol. gentamicin in NaCl (iso-osm) 100 mg/100 mL piggyback 90 mg IV Q12H 10 Days Rx Instructions: dx: endocarditis stop date 05/16/23 labs on Mondays and : bmp, LFT, cbc, gentamicin trough. Fax to . Routine picc care per protocol. metoprolol tartrate 50 mg Tablet 50 mg PO BID Qty: 60 2RF diltiazem HCl 120 mg Capsule,Extended Release 24hr 120 mg PO DAILY Qty: 30 2RF Eliquis 5 mg Tablet 5 mg PO BID Qty: 60 0RF Continued potassium chloride 20 mEq tablet extended release 20 meq PO BID metoprolol succinate 50 mg tablet extended release 24 hr 50 mg PO DAILY albuterol sulfate 90 mcg/actuation HFA aerosol inhaler 2 puff inhalation Q6H PRN (Reason: shortness of breath or wheezing) omeprazole 20 mg capsule,delayed release(DR/EC) 20 mg PO DAILY acidophilus-pectin, citrus 1 TABLET tablet 1 tab PO DAILY Patient Comments: probiotic tamsulosin 0.4 mg capsule 0.4 mg PO DAILY finasteride 5 mg tablet 5 mg PO DAILY Centrum Silver 0.4 mg-300 mcg- 250 mcg Tablet 1 tab PO DAILY cholecalciferol (vitamin D3) [Vitamin D3] 125 mcg (5,000 unit) Tablet 125 mcg PO DAILY ondansetron 4 mg tablet,disintegrating 4 mg PO Q8H PRN PRN (Reason: Nausea) Qty: 10 0RF oxycodone-acetaminophen [Percocet] 5-325 mg tablet 1 tab PO Q8H PRN (Reason: pain) 7 Days Qty: 15 0RF Referrals / Follow Up: Darrin Ramirez MD [Primary Care Provider] - Within 1 Week Cristina Freitas PA [Med Staff - Adv Practice Prof] - 06/12/23 1:00 pm Disposition Disposition (needs filled in before D/C Order can be placed): [facility]
[2023-05-06] MEDS: GENTAMICIN IVPB (12:52)
[2023-05-06] MEDS: WATER IVPB (12:52)
[2023-05-06] MEDS: DEXTROSE 5% IVPB (12:52)
[2023-05-06] MEDS: 0.9% Saline Lock 10 ML Syringe IV ×2 (12:52→16:02)
--- NOTE | 2023-05-06 14:10 | PCM.DC.SUM ---
Providers Date of Admission: 04/29/23 Date of Discharge: 05/06/23 Primary Care Physician: Dr. Darrin Ramirez MD Consultations 04/29/23 01:33 Consult: Hospice / Palliative Care Routine Consulting Provider: [facility] Reason for Consult: Family overwhelmed with patient's progressive decline hx of prostate ca EMERGENT Consult: No MD Notified: Yes Date Notified: 04/29/23 Time Notified: 01:33 Method of Notification: Answering Service Comments:: via telephone community relations police lieutenantcall center receptionistkarl Ordaz 04/29/23 14:35 Consult: Infectious Disease Routine Consulting Provider: James Flores Reason for Consult: gram positive bacteremia EMERGENT Consult: No MD Notified: Yes Date Notified: 05/02/23 Time Notified: 06:51 Method of Notification: Answering Service 04/30/23 09:58 Consult: Cardiology Routine Consulting Provider: Suresh Mendosa Reason for Consult: elevated troponin, infective endocarditis EMERGENT Consult: No MD Notified: Yes Date Notified: 04/30/23 Time Notified: 09:58 Method of Notification: Text Reason For Visit: ACUTE CYSTITIS WITH POSITIVE SIRS CRITERIA & Diagnosis Discharge Diagnosis (1) MSSA bacteremia: Status: Acute Code(s): R78.81 - Bacteremia; B95.61 - Methicillin susceptible Staphylococcus aureus infection as the cause of diseases classified elsewhere Plan #bacteremia in the setting of UTI Urinalysis showed evidence of UTI. 4 out of 4 blood cultures positive for gram-positive cocci. ID on board; Antibiotics switched to IV cefazolin and gentamycin urine cultures grew E coli;repeat blood cultures still growing Staph aureus. #Infective endocarditis blood cultures positive for Staph aureus. Repeat blood cultures still positive for Staph aureus 2D echo showed a bioprosthetic aortic valve with possible mobile mass on aortic valve measuring 2.1 x 0.5cm on IV vancomycin.repeat blood cultures still positive for MSSA ID on board. Had KAROLINA which showed evidence of vegetation on the bioprosthetic aortic valve ID to determine how long he should be on antibiotics. #Afib RVR resolved. cardiology on board 2D echo showed evidence of moderate concentric LVH with normal LVSF and EF of 55-60%, as well as no regional wall motion abnormalities. management as per cardiology CTA chest done showed evidence of PE within the distal branches leading to the left lower lobe; no proximal PE noted, and no right heart strain. now on eliquis. On PO cardizem Still has intermittent tachycardia. #Nonstemi Patient complained of some chest pain. Initial troponin was 340 but trended down to 210. 2D echo as above. Cardiology on board. There was likely a type II due to STEMI due to A-fib with RVR. A-fib with RVR is resolved, patient now on Eliquis. #UTI: As above #Acute encephalopathy: resolved. #ZAHEER: Resolved. #History of prostate cancer: Follow-up with urology on outpatient basis. #Debility and weakness likely due to cancer and acute infection: PT OT consulted. Fall precautions. #Benign essential hypertension. IV hydralazine as needed. On metoprolol #BPH: On tamsulosin and finasteride #Hyperlipidemia: On statin #History of aortic stenosis: S/p TAVR. Stable. #GERD: On PPI DVT prophylaxis: eliquis Total time spent on evaluation and management of patient, reviewing chart, discussing plan with patient, discussion with nursing and ancillary staff as well as documentation: 35 mins Disposition: Awaiting placement Medications at Discharge Home Medications acidophilus 25 million cell-pectin, citrus 100 mg tablet 1 tab PO DAILY probiotic 03/12/14 finasteride 5 mg tablet 5 mg PO DAILY BPH 03/21/22 cholecalciferol (vitamin D3) 125 mcg (5,000 unit) tablet (Vitamin D3) 125 mcg PO DAILY supplement 04/10/22 tozrjtyr-dhh-uyzqi acid 0.4 mg-lycopene 300 mcg-lutein 250 mcg tablet (Centrum Silver) 1 tab PO DAILY supplement 04/10/22 potassium chloride 20 mEq tablet,extended release 20 meq PO BID 06/21/22 albuterol sulfate 90 mcg/actuation aerosol inhaler 2 puff inhalation Q6H PRN shortness of breath or wheezing 10/12/22 metoprolol succinate 50 mg tablet,extended release 24 hr 50 mg PO DAILY 10/12/22 omeprazole 20 mg capsule,delayed release 20 mg PO DAILY 10/12/22 tamsulosin 0.4 mg capsule 0.4 mg PO DAILY BPH 10/12/22 ondansetron 4 mg disintegrating tablet 4 mg PO Q8H PRN PRN Nausea #10 tabs 04/25/23 oxycodone-acetaminophen 5 mg-325 mg tablet (Percocet) 1 tab PO Q8H PRN pain 7 days #15 tabs 04/27/23 cefazolin 2 gram intravenous solution 2 g IV Q8H 38 days 05/05/23 gentamicin 100 mg/100 mL in sodium chloride(iso) intravenous piggyback 90 mg (90 mL) IV Q12H 10 days 05/05/23 apixaban 5 mg tablet (Eliquis) 5 mg PO BID #60 tabs 05/06/23 diltiazem HCl 120 mg capsule,extended release 24 hr 120 mg PO DAILY #30 caps 05/06/23 metoprolol tartrate 50 mg tablet 50 mg PO BID #60 tabs 05/06/23 Hospital Course Operations None Procedures 2-D Echocardiogram and Transesophageal Echo Summary of Care Provided Minutes Spent on Discharge: 55 Hospital Course: Patient is an 82-year-old male with an extensive past medical history as outlined who was admitted through the ED on 04/29/2023 with a complaint of fever and confusion as well as generalized weakness and fatigue. His symptoms had began about a week prior to admission. He had fever with a peak of 101 Fahrenheit and was also tachycardic. Urinalysis showed evidence of UTI he also had ZAHEER with creatinine of 1.46. He was admitted and managed for acute metabolic encephalopathy due to UTI and dehydration. He was hydrated with IV fluids and started on IV cefepime. Urine and blood cultures were ordered. Blood cultures came back positive for gram-positive cocci. IV vancomycin was added on. Cefepime was therefore discontinued. Patient remained tachycardic during admission and his metoprolol was resumed. He had 2D echo which showed a vegetation on his bioprosthetic aortic valve. Infectious disease was therefore consulted. He had repeat blood cultures which was still growing MSSA. Antibiotics was switched to IV cefazolin with IV gentamicin for synergy. He had a KAROLINA which still showed the vegetation on the bioprosthetic aortic valve. Cardiology was consulted in light of her persistent tachycardia. He was placed on Cardizem 120 mg daily and his metoprolol was continued. ZAHEER resolved. Hospital course was complicated by PE on the CT of the chest, and so he was placed on Eliquis. ID recommended patient continue on IV cefazolin and he was given a prescription for IV cefazolin with a stop date of 06/13/2023 and IV gentamicin for synergy with a stop date of 05/16/2023. He was not given rifampin due to multiple drug interactions. He is follow-up with his primary care doctor and ID within 1 to 2 weeks. Patient seen and examined prior to discharge. He had no active complaints and had an uneventful night. Review of systems otherwise negative. Labs and vitals reviewed. Home medication reviewed and reconciled. Physical Exam Const alert, oriented x3, no apparent distress and average body habitus Constitutional Narrative: frail General Appearance: cooperative and well developed Orientation / Consciousness: confused and disoriented HEENT normocephalic, head/scalp atraumatic, hearing grossly normal bilaterally, moist oral mucous membranes and oropharynx normal Mouth: oral and palatal mucosa normal Eyes PERRL, EOMs intact bilaterally and conjunctivae normal Neck no lymphadenopathy and supple Lymph Lymphatic: no lymphadenopathy noted, no lymphedema noted and lymphedema Resp normal respiratory effort, normal air movement, no retractions, no use of accessory muscles and clear to auscultation bilaterally Cardio regular rhythm, S1 normal heart sound and S2 normal heart sound Cardio Narrative: mildly tachycardic, has a grade 2-3 murmur at the aortic valve area GI normal to inspection, nondistended, normoactive bowel sounds, soft to palpation, non-tender and non-distended Extremity normal to inspection, full ROM, normal capillary refill, no clubbing, cyanosis or edema and no calf tenderness General Extremity: no tenderness to palpation of joints or extremities Skin Skin Narrative: Patient has no evidence of rash at this time. General Skin Exam: no breakdown Neuro oriented x3, CN's II-XII intact bilaterally, moves all extremities, no focal motor deficits, no sensory deficits noted and deep tendon reflexes 2+ bilaterally Sensorium / Orientation: awake, alert and oriented to person Speech: speech normal Motor Exam: strength 5/5 throughout and general weakness Psych thought process normal, cooperative and affect normal Psych Narrative: Patient is alert but his orientation is markedly impaired. Appearance: appropriate Weight / BMI Weight Weight: 249 lb 6.4 oz Body Mass Index (BMI) 35.7 ABG / Lab / Microbiology Data 05/06/23 07:44 05/06/23 07:44 Laboratory: Laboratory Results - last 24 hr 05/05/23 16:50: Gentamicin Trough 0.2 05/06/23 07:44: WBC 11.7 H, RBC 3.36 L, Hgb 8.8 L, Hct 28.9 L, MCV 86.0, MCH 26.2 L, MCHC 30.4 L, RDW Std Deviation 46.6 H, RDW Coeff of Marta 14.9 H, Plt Count 362, MPV 9.2, Immature Gran % (Auto) 2.100 H, Neut % (Auto) 70.2 H, Lymph % (Auto) 15.1 L, Wetzel % (Auto) 9.5, Eos % (Auto) 2.7, Baso % (Auto) 0.4, Absolute Neuts (auto) 8.2 H, Absolute Lymphs (auto) 1.76, Nucleated RBC % 0, Sodium 134 L, Potassium 3.6, Chloride 103, Carbon Dioxide 26.0, Anion Gap 5, BUN 16, Creatinine 0.98, Estim Creat Clear Calc 58.97, Est GFR (MDRD) Af Amer 94, Est GFR (MDRD) Non-Af 78, BUN/Creatinine Ratio 16.4, Glucose 112 H, Calcium 8.6 Microbiology: Microbiology 05/06/23 12:46 Nasal Secretion SARS-CoV-2 Antigen (Rapid) - Final 05/03/23 12:23 Blood Culture (Wb) - Left Hand Blood Culture - Preliminary No growth in 48 hours. 04/30/23 08:20 Blood Culture (Wb) - Anticubital Right Blood Culture - Final Staphylococcus aureus 04/30/23 08:24 Blood Culture (Wb) - Right Hand Blood Culture - Final Staphylococcus aureus 05/02/23 14:00 Blood Culture (Wb) - Right Forearm Blood Culture - Final Staphylococcus schleiferi 04/28/23 23:20 Urine Catheter - Catheter Urine Culture - Final Escherichia coli 04/30/23 08:24 Blood Culture (Wb) - Anticubital Right Bacteria Detection (PCR) - Final 04/28/23 22:35 Blood Culture (Wb) - Anticubital Left Blood Culture - Final Staphylococcus aureus 04/28/23 22:45 Blood Culture (Wb) - Right Hand Bacteria Detection (PCR) - Final Staphylococcus aureus 04/28/23 22:45 Blood Culture (Wb) - Right Hand Blood Culture - Final Staphylococcus aureus 04/28/23 23:04 Nasal Secretion SARS-CoV-2 & FLU Antigen (Rapid) - Final Radiography Diagnostic Testing: Radiology Impression Chest X-Ray 05/05/23 16:00 IMPRESSION: 1. Borderline cardiomegaly and/or pericardial effusion may be exaggerated secondary to technique. 2. Mild pulmonary vascular congestion. Electronically Signed: Claudy Kwong DO at 16:51 EST , D/C Instructions Discharge Diet: Low fat / Low cholesterol Discharge Activity: Return to Normal Activity Weight Bearing Status: Weight bearing as tolerated Call your doctor if you observe: Fever of 101 or Higher, Shortness of breath, Dizziness, Swelling in the ankles and Chest pain Meaningful Use Info Meaningful Use Diagnoses (Choose all that apply): VTE VTE Anticoag overlap given w/in hospital stay or rx'd at la?: Yes Pt receive overlap for 5 days?: No Reason overlap not ordered, prescribed, or given for 5 days: Treatment Not Indicated Discharge Plan Admission Admit Date/Time: 04/29/23 00:59 Primary Reason for Your Visit: infective endocarditis Attending Provider: Raina Nair Primary Care Provider: Darrin Ramirez Consulting Providers: Mark Jesus; Mark Jose; Lisa Lemons; Sravanthi Santamaria; Daniella Osorio CLINICAL DIETETIC TECHNICIAN; Suresh Mendosa; James Flores Discharge Orders/Prescriptions Prescriptions: New cefazolin 2 gram recon soln 2 g IV Q8H 38 Days Rx Instructions: dx: endocarditis stop date 06/13/23 labs on Mondays and : bmp, LFT, cbc, gentamicin trough. Fax to [phone]. Routine picc care per protocol. gentamicin in NaCl (iso-osm) 100 mg/100 mL piggyback 90 mg IV Q12H 10 Days Rx Instructions: dx: endocarditis stop date 05/16/23 labs on Mondays and : bmp, LFT, cbc, gentamicin trough. Fax to [phone]. Routine picc care per protocol. metoprolol tartrate 50 mg Tablet 50 mg PO BID Qty: 60 2RF diltiazem HCl 120 mg Capsule,Extended Release 24hr 120 mg PO DAILY Qty: 30 2RF Eliquis 5 mg Tablet 5 mg PO BID Qty: 60 0RF Continued potassium chloride 20 mEq tablet extended release 20 meq PO BID metoprolol succinate 50 mg tablet extended release 24 hr 50 mg PO DAILY albuterol sulfate 90 mcg/actuation HFA aerosol inhaler 2 puff inhalation Q6H PRN (Reason: shortness of breath or wheezing) omeprazole 20 mg capsule,delayed release(DR/EC) 20 mg PO DAILY acidophilus-pectin, citrus 1 TABLET tablet 1 tab PO DAILY Patient Comments: probiotic tamsulosin 0.4 mg capsule 0.4 mg PO DAILY finasteride 5 mg tablet 5 mg PO DAILY Centrum Silver 0.4 mg-300 mcg- 250 mcg Tablet 1 tab PO DAILY cholecalciferol (vitamin D3) [Vitamin D3] 125 mcg (5,000 unit) Tablet 125 mcg PO DAILY ondansetron 4 mg tablet,disintegrating 4 mg PO Q8H PRN PRN (Reason: Nausea) Qty: 10 0RF oxycodone-acetaminophen [Percocet] 5-325 mg tablet 1 tab PO Q8H PRN (Reason: pain) 7 Days Qty: 15 0RF Referrals / Follow Up: Darrin Ramirez MD [Primary Care Provider] - Within 1 Week James Flores MD [Med Staff - Active Staff] - Within 2 Weeks Cristina Freitas PA [Med Staff - Adv Practice Prof] - 06/12/23 1:00 pm Disposition Disposition (needs filled in before D/C Order can be placed): Longterm Facility Charges/Coding Visit Charges Inpatient E&M: 93112 Disch Hosp >30min
[2023-05-06 14:48] VITALS: BP 146/82; PULSE 102; RESP 17; TEMP 36.6; O2SAT 98
== END 2023-05-06 16:24 | disposition skilled nursing facility (03) | DRG 689 ==
LOC: ED 04-29 00:33 → MS3 04-29 01:03 → PCU 04-30 09:34
PROVIDERS: Internal Medicine Infectious Disease; Internal Medicine Interventional Cardiology; Admitting Provider Internal Medicine; Emergency Provider Emergency Medicine; PCP Family Medicine; Visit Provider Student in an Organized Health Care Education/Training Program
DX: N30.01 Acute cystitis with hematuria (principal); I33.0 Acute and subacute infective endocarditis; G93.41 Metabolic encephalopathy; I21.A1 Myocardial infarction type 2; R78.81 Bacteremia; N17.9 Acute kidney failure, unspecified; C61 Malignant neoplasm of prostate; B95.61 Methicillin susceptible Staphylococcus aureus infection as the cause of diseases classified elsewhere; I48.91 Unspecified atrial fibrillation; E86.0 Dehydration; J42 Unspecified chronic bronchitis; G25.81 Restless legs syndrome; I10 Essential (primary) hypertension; F32.A Depression, unspecified; D64.9 Anemia, unspecified; K21.9 Gastro-esophageal reflux disease without esophagitis; E78.5 Hyperlipidemia, unspecified; M19.90 Unspecified osteoarthritis, unspecified site; B96.20 Unspecified Escherichia coli [E. coli] as the cause of diseases classified elsewhere; Z95.2 Presence of prosthetic heart valve; R53.81 Other malaise; G89.29 Other chronic pain; Z95.3 Presence of xenogenic heart valve; R59.0 Localized enlarged lymph nodes
CPT/HCPCS: 36415; 36569; 71045; 71275; 73700; 80048; 80053; 80061; 80170; 80202; 80307; 81001; 82803; 83605; 84100; 84153; 84443; 84484; 85025; 85610; 85730; 87040; 87077; 87086; 87088; 87149; 87186; 87428; 87811; 93005; 93306; 93312; 93320; 93325; 94668; 97110; 97112; 97116; 97162; 97166; 97530; 97535; 97802; 99282; 99285; J7030; J7040; J7050; Q9957; Q9967; A4216; G0103

== ENCOUNTER 2023-05-31 08:55 | Emergency (ER) | payer MEDICARE, SELFPAY ==
[2023-05-31] VITALS (11 sets, daily range): BP systolic 103–138; BP diastolic 51–105; PULSE 90–122; RESP 17–23; TEMP 35.9–36.9; O2SAT 96–98; BMI 39.2
--- NOTE | 2023-05-31 09:29 | VDLE_ITS ---
Reason For Study: Bilateral leg swelling RIGHT LEFT GSV is normal. GSV is normal. CFV is compressible, spontaneous, phasic, CFV is compressible, spontaneous, phasic, competent and demonstrates normal competent, and demonstrates normal augmentation. augmentation. FV is compressible, spontaneous, phasic, FV is compressible, spontaneous, phasic, competent and demonstrates normal competent and demonstrates normal augmentation. augmentation. POP V is compressible, spontaneous, phasic, POP V is compressible, spontaneous, phasic, competent and demonstrates normal competent and demonstrates normal augmentation. augmentation. T/P Trunk is compressible. T/P Trunk is compressible. PTV is compressible. PTV is compressible. RT PerV is compressible. LT PerV is compressible. Procedure This is a venous duplex using B-mode, color flow and spectral Doppler. Exam performed portable in ED. A preliminary report was called and/or faxed to [facility]. VL/Venous Duplex US - Otto Extrem Interpretation Summary Deep veins of the bilateral lower extremities are patent and compressible segme ntally. There is no evidence of bilateral lower extremity deep vein thrombosis. The bilateral great saphenous veins appear patent and compressible segmentally. Ordering Physician: Marty Bender Referring Physician: Darrin Ramirez Performed By: Aubree Bonilla RVT
--- NOTE | 2023-05-31 09:29 | RAD_ITS ---
EXAM: XR CHEST, 1 VIEW CLINICAL INDICATION: Dyspnea. TECHNIQUE: Frontal view of the chest. COMPARISON: 05/05/2023. FINDINGS: LUNGS AND PLEURAL SPACES: Unremarkable. No consolidation or edema. No pneumothorax. No effusion. HEART: Metallic stent across the aortic valve. MEDIASTINUM: Central airways and mediastinal contour are unremarkable. BONES/JOINTS: Unremarkable. No acute fracture. SOFT TISSUES: Unremarkable. TUBES, LINES AND DEVICES: Left PICC line catheter tip is in the left brachiocephalic vein. RAD/Chest 1 View (Portable) IMPRESSION: 1. No acute cardiopulmonary pathology. 2. Left PICC line catheter tip is in the left brachiocephalic vein. 3. Interval removal of right PICC line catheter. 4. Interval deployment of metallic stent across the aortic valve. Electronically Signed: Victorino Gloria MD at 11:01 EST ,
--- NOTE | 2023-05-31 09:32 | EX.ED.DYSGE1 ---
HPI History of Present Illness Chief Complaint: Confusion Informant: patient, family, EMS and SNF Narrative Narrative: 82-year-old male presenting to the emergency room with confusion following head injury. Patient has a complicated recent medical history. He was admitted in April and had E. coli growing in urine and blood with 4 out of 4 bottles with MSSA. 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 He has been receiving vancomycin and gentamicin as directed by infectious disease and was transferred to [facility] on 06 May 2023. Daughter states that last week he developed COVID-19. He also developed a diffuse erythematous rash and believes that the vancomycin was stopped cefazolin started. Daughter notes that the rash seems particular severe left knee and foot and the both legs are grossly edematous. He notes the rash continues on the chest and abdomen. They deny any sloughing of skin. No blistering. He is on Eliquis for chronic atrial fibrillation. It was reported that the patient's PICC line stopped working in the right arm and he had a new 1 placed in the left arm. It was reported to me by the intermediate nurse practitioner that it was not in the right place. Patient states he took some medications by mouth this morning but does not know exactly what and it was reported to me that he received an IM injection of an antibiotic. Patient states that late last night/early this morning he sat on the edge of his bed went to reach for the light and fell off the bed striking the back of his head. He notes no loss of consciousness. He states he had some bleeding from the occiput. SNF reports that the patient seems confused but is ANO x 4. Patient has a chronic indwelling Lockwood and yesterday the urine appeared rust colored. He is due for a catheter change but daughter states that the catheter needs to be changed by guidewires due to history of false lumen. SNF reports the patient seemed short of breath this morning they note that his pulse ox was 98%. They did place him on supplemental oxygen. He does not typically wear oxygen. He does not wear CPAP at night. He does have a history of prostate cancer treated with radiation which is the underlying cause for the indwelling Lockwood. Blood work performed on 29 May brought by the daughter shows a white blood cell count of 15.2 hemoglobin 8.6 platelet count 184 CO2 of 19 anion gap 5 creatinine 1.7 UPDATE: Per Dr. Flores from infectious disease the gentamicin was stopped earlier this month. About 2 weeks ago the patient developed a rash and reported renal failure. He was changed to cefepime 2g twice daily. This is to continue until 16 June 2023. [facility] Medical History Abnormal electrocardiogram Ambulates with cane Anemia Anemia Aortic stenosis Arthritis Atrial fibrillation Back pain BPH (benign prostatic hyperplasia) Cancer Cardiology follow-up encounter Chronic back pain Chronic indwelling Lockwood catheter Depression Diverticulosis DVT (deep venous thrombosis) Easy bruising Essential hypertension Gastric reflux GERD (gastroesophageal reflux disease) History of echocardiogram History of edema History of steroid therapy Hyperlipidemia Hypertension Inguinal hernia Irregular heart beat Kidney disease Kidney stones Leg cramps Loss of hearing Lung nodule Multiple premature ventricular complexes Non-smoker Nonrheumatic aortic (valve) stenosis Obesity Osteoarthritis Prostate cancer metastatic to bone Prostate disease Restless legs Wears glasses Wears hearing aid Home Medications acidophilus 25 million cell-pectin, citrus 100 mg tablet 1 tab PO DAILY PROBIOTC 03/12/14 [History Last Taken 05/31/23] finasteride 5 mg tablet 5 mg PO QHS PROSTATE 03/21/22 [History Last Taken 05/30/23] cholecalciferol (vitamin D3) 125 mcg (5,000 unit) tablet (Vitamin D3) 125 mcg PO DAILY SUPPLEMENT 04/10/22 [History Last Taken 05/31/23] jkrzwwjf-rqk-pzdhz acid 0.4 mg-lycopene 300 mcg-lutein 250 mcg tablet (Centrum Silver) 1 tab PO DAILY SUPPLEMENT 04/10/22 [History Last Taken 05/31/23] potassium chloride 20 mEq tablet,extended release 20 meq PO BID SUPPLEMENT 06/21/22 [History Last Taken 05/31/23] albuterol sulfate 90 mcg/actuation aerosol inhaler 2 puff inhalation Q6H PRN SHORNSS OF BREATH/WHEEZING 10/12/22 [History Last Taken Unknown] tamsulosin 0.4 mg capsule 0.4 mg PO QHS PROSTATE 10/12/22 [History Last Taken 05/30/23] oxycodone-acetaminophen 5 mg-325 mg tablet (Percocet) 1 tab PO Q8H PRN HIP PAIN 7 days #15 tabs 04/27/23 [Rx Last Taken Unknown] cefazolin 2 gram intravenous solution 2 g IV Q8H 38 days 05/05/23 [Rx Last Taken Unknown] gentamicin 100 mg/100 mL in sodium chloride(iso) intravenous piggyback 90 mg (90 mL) IV Q12H 10 days 05/05/23 [Rx Last Taken Unknown] apixaban 5 mg tablet (Eliquis) 5 mg PO BID BLOOD THINNER #60 tabs 05/06/23 [Rx Last Taken 05/31/23] diltiazem HCl 120 mg capsule,extended release 24 hr 120 mg PO DAILY BLOOD PRESSURE #30 caps 05/06/23 [Rx Last Taken 05/31/23] metoprolol tartrate 50 mg tablet 50 mg PO BID BLOOD PRESSURE #60 tabs 05/06/23 [Rx Last Taken 05/31/23] acetaminophen 650 mg tablet,extended release (8 Hour Pain Reliever) 1,300 mg PO Q6H PRN pain 05/31/23 [History Last Taken 05/30/23] cefepime 2 gram solution for injection 2 g IV Q12H 05/31/23 [History Last Taken 05/30/23] hydroxyzine HCl 25 mg tablet 25 mg PO Q12H 05/31/23 [History Last Taken 05/31/23] ondansetron 4 mg disintegrating tablet 4 mg PO Q8H PRN NAUSEA 05/31/23 [History Last Taken Unknown] pantoprazole 40 mg tablet,delayed release 40 mg PO DAILY ACID REFLUX 05/31/23 [History Last Taken 05/31/23] Allergy/AdvReac Type Severity Reaction Status Date / Time No Known Allergies Allergy Verified 04/27/23 12:13 Family History Father Heart disease Surgical History (Updated 05/14/23 @ 00:04 by Jitendra Balderas) Amputated toe History of AAA (abdominal aortic aneurysm) repair History of carpal tunnel release History of cystoscopy History of inguinal hernia repair History of left knee replacement History of total knee arthroplasty History of transcatheter aortic valve replacement (TAVR) (~09/26/22) Social History household members: spouse Smoking Status: Never smoker substance use type: does not use ROS ROS ED Constitutional Constitutional ED: Denies chills, fever(s) or weight loss Eyes Eyes: Denies change in vision or diplopia ENT ENT ED: Reports other Details: Dry mouth ; Denies ear pain, rhinorrhea or sore throat Cardiovascular Cardiovascular: Denies chest pain, orthopnea, palpitations or racing heartbeat Respiratory/Chest Respiratory/Chest: Reports dyspnea; Denies cough or orthopnea Gastrointestinal Gastrointestinal: Denies abdominal pain, constipation, diarrhea, nausea or vomiting Genitourinary Genitourinary ED: Reports other Details: Indwelling catheter Rust colored urine See HPI ; Denies dysuria, hematuria or urinary frequency Musculoskeletal Musculoskeletal: Denies arthralgias, back pain, myalgias or neck pain Integumentary Reports Abrasions and rash; Denies abscess Neurologic Neurologic: Denies headache(s), paresthesias or weakness Psychiatric Psychiatric: Denies anxiety, depression, suicidal ideation or suicidal thoughts Endocrine Endocrinology: Denies polydipsia, polyphagia or polyuria Allergic/Immunologic Allergic/Immunologic ED: Denies mouth swelling, tongue swelling or urticaria EXAM Physical Exam Const Vital Signs: 05/31/23 08:56 05/31/23 11:41 05/31/23 12:24 Temperature 96.6 F L 97.9 F Temperature Source Temporal Oral Pulse Rate 122 H 109 H 118 H Respiratory Rate 18 17 20 H Blood Pressure 127/105 H 138/100 H 135/100 H Blood Pressure Mean 112 112 111 Pulse Ox 96 98 Oxygen Delivery Method Room Air Room Air 05/31/23 13:00 05/31/23 14:00 05/31/23 15:00 Temperature 98.3 F 98.5 F 98 F Temperature Source Temporal Temporal Temporal Pulse Rate 103 H 90 99 Respiratory Rate 20 H 20 H 19 H Blood Pressure 118/76 103/71 135/98 H Blood Pressure Mean 90 81 110 Pulse Ox 97 97 Oxygen Delivery Method 05/31/23 15:00 Temperature Temperature Source Pulse Rate 99 Respiratory Rate 19 H Blood Pressure 135/98 H Blood Pressure Mean 110 Pulse Ox Oxygen Delivery Method Positive well nourished, well developed and obese General Appearance ED: well developed Nutritional Appearance: obese HEENT Reports normocephalic and dry mucous membranes HEENT Narrative: There is an occipital contusion with superficial abrasion. Mouth ED: Yes dry mucous membranes Mouth: dry mucous membranes Eyes PERRL and EOMs intact bilaterally Neck no lymphadenopathy, supple and no JVD Resp clear to auscultation bilaterally Resp Narrative: Patient appears slightly distended. Lung sounds are clear. Cardio Rate: tachycardic Rhythm: abnormal rhythm irregularly irregular GI normal to inspection, nondistended, normoactive bowel sounds and non-tender Palpation: soft Back/Spine no CVA tenderness and normal ROM Extremity General Extremety ED: Yes edema General Extremity: edema bilateral lower extremity Details: moderate Neuro oriented x3 and CN's II-XII intact bilaterally Neuro Narrative: Patient appears to have some conversational confusion but is ANO x 4 Sensorium / Orientation: alert Motor Exam: strength 5/5 throughout Psych mental status grossly normal Mood & Affect: Negative for depressed or tearful Skin no wounds Skin Narrative: There is a diffuse erythematous rash of the trunk arms legs. There is almost a lenticular like pattern particularly noted over the anterior left knee and foot. While the rash diffusely blanches some areas do not appear to katie. MDM MDM MDM Narrative Medical decision making narrative: Blood work shows white count 12.3 with a hemoglobin 8.6 which appears chronic and the white count stable. Creatinine 1.60 which appears at baseline. Troponin of 80 which is not new. Lactic acid normal 1.5. Urinalysis is showing some blood white cells positive nitrates and bacteria. This is again sent for culture. CT the brain does not demonstrate any intracranial hemorrhage. My independent or potation of the chest x-ray is no acute process. The PICC line appears to stop near the left brachiocephalic vein. It would need to be advanced but unfortunately there is nothing really to advance outside of the arm. This would suggest that it was cut slightly short and we would need to guidewire at and changed out to a longer PICC line for it to be in appropriate position. Patient received 10 mg of diltiazem which has decreased his heart rate. Difficult to say if the A-fib with RVR is causing some increased leg swelling or is in response to infection. I went ahead and gave him some additional Lasix. His duplex ultrasound is negative for DVT. I spoke with Dr. Flores who recommends continuing the cefepime. I think his Lockwood catheter needs to be changed and is due to be changed. I do not have urology coverage here right now. Family states that he sees urology nurse practitioner in [place] and is due to see Dr. Wegryn his urologist in [place] to talk about a suprapubic catheter. Family is requesting transfer to [facility]. I spoke with [facility] transfer line and then the hospitalist. They have accepted the patient. We have been waitlisted but there is a chance that we would get a bed this evening. History & Record Review Discussion w/independent historian: Patient and Family Additional record(s) reviewed:: Prior inpatient record, Prior outpatient record, Prior ED visit and Prior labs Lab Data Attestation: I reviewed the patient's lab results. Labs: Laboratory Results - last 24 hr 05/31/23 05/31/23 09:45 10:20 WBC 12.3 H RBC 3.32 L Hgb 8.6 L Hct 28.7 L MCV 86.4 MCH 25.9 L MCHC 30.0 L RDW Std Deviation 57.0 H RDW Coeff of Marta 18.9 H Plt Count 151 MPV 9.6 Immature Gran % (Auto) 1.000 H Neut % (Auto) 73.1 H Lymph % (Auto) 7.3 L [place] % (Auto) 10.4 H Eos % (Auto) 7.5 H Baso % (Auto) 0.7 Absolute Neuts (auto) 9.0 H Absolute Lymphs (auto) 0.90 Nucleated RBC % 0 PT 20.8 H INR 1.8 APTT 32.1 Sodium 137 Potassium 4.6 Chloride 114 H Carbon Dioxide 19.0 L Anion Gap 4 L BUN 33 H Creatinine 1.60 H Estim Creat Clear Calc 46.23 Est GFR (MDRD) Af Amer 53 L Est GFR (MDRD) Non-Af 44 L BUN/Creatinine Ratio 20.6 H Glucose 105 Lactic Acid 1.5 Calcium 8.9 Total Bilirubin 0.60 Direct Bilirubin 0.19 AST 21 ALT 20 Alkaline Phosphatase 90 Troponin I High Sens 80 H B-Natriuretic Peptide 340.7 H Total Protein 8.3 H Albumin 2.5 L Globulin 5.8 H Urine Color Alem Urine Clarity Cloudy Urine pH 5.0 Ur Specific Evant 1.020 Urine Protein 500 H Urine Glucose (UA) Normal Urine Ketones 5 H Urine Occult Blood 250 H Urine Nitrite Positive H Urine Bilirubin Negative Urine Urobilinogen Normal Ur Leukocyte Esterase 500 H Urine RBC 25-50 SEEN Urine WBC 25-50 SEEN Ur Squamous Epith Cells 0 SEEN Urine Bacteria 1+ Coarse Granular Casts 0-5 SEEN Urine Mucus 0 SEEN Radiography Diagnostic Testing: Clinical Impression(s) from Imaging Studies Chest X-Ray 05/31/23 09:29 IMPRESSION: 1. No acute cardiopulmonary pathology. 2. Left PICC line catheter tip is in the left brachiocephalic vein. 3. Interval removal of right PICC line catheter. 4. Interval deployment of metallic stent across the aortic valve. Electronically Signed: Victorino Gloria MD at 11:01 EST , Brain CT 05/31/23 09:53 IMPRESSION: No CT evidence of intracranial bleeding, acute ischemic infarct or acute intracranial abnormality. Electronically Signed: Victorino Gloria MD at 10:49 EST , EKG Initial EKG: Attestation: I personally reviewed and interpreted this EKG as follows: Comments: Atrial fibrillation with RVR ventricular rate 112 bpm Management Discussion w/another healthcare provider: [employer] ([facility] Hospitalist, PANTERA KEITH at [facility]) and Pharmacist Discharge Plan Triage Chief Complaint: Confusion ED Provider: Marty Bender Dx/Rx/DC Orders Prescriptions: No Action potassium chloride 20 mEq tablet extended release 20 meq PO BID albuterol sulfate 90 mcg/actuation HFA aerosol inhaler 2 puff inhalation Q6H PRN (Reason: SHORNSS OF BREATH/WHEEZING) acidophilus-pectin, citrus 1 TABLET tablet 1 tab PO DAILY tamsulosin 0.4 mg capsule 0.4 mg PO QHS finasteride 5 mg tablet 5 mg PO QHS Centrum Silver 0.4 mg-300 mcg- 250 mcg Tablet 1 tab PO DAILY cholecalciferol (vitamin D3) [Vitamin D3] 125 mcg (5,000 unit) Tablet 125 mcg PO DAILY oxycodone-acetaminophen [Percocet] 5-325 mg tablet 1 tab PO Q8H PRN (Reason: HIP PAIN ) 7 Days Qty: 15 0RF cefazolin 2 gram recon soln 2 g IV Q8H 38 Days Rx Instructions: dx: endocarditis stop date 06/13/23 labs on Mondays and : bmp, LFT, cbc, gentamicin trough. Fax to [phone]. Routine picc care per protocol. gentamicin in NaCl (iso-osm) 100 mg/100 mL piggyback 90 mg IV Q12H 10 Days Rx Instructions: dx: endocarditis stop date 05/16/23 labs on Mondays and : bmp, LFT, cbc, gentamicin trough. Fax to [phone]. Routine picc care per protocol. metoprolol tartrate 50 mg Tablet 50 mg PO BID Qty: 60 2RF diltiazem HCl 120 mg Capsule,Extended Release 24hr 120 mg PO DAILY Qty: 30 2RF Eliquis 5 mg Tablet 5 mg PO BID Qty: 60 0RF ondansetron 4 mg tablet,disintegrating 4 mg PO Q8H PRN (Reason: NAUSEA ) pantoprazole 40 mg tablet,delayed release (DR/EC) 40 mg PO DAILY acetaminophen [8 Hour Pain Reliever] 650 mg tablet extended release 1,300 mg PO Q6H PRN (Reason: pain) cefepime 2 gram recon soln 2 g IV Q12H hydroxyzine HCl 25 mg tablet 25 mg PO Q12H Primary Care Provider: Celia Barnes Referrals: Drarin Ramirez MD [Non-Staff] -
--- NOTE | 2023-05-31 09:53 | CT_ITS ---
EXAM: CT HEAD WITHOUT INTRAVENOUS CONTRAST CLINICAL INDICATION: head injury TECHNIQUE: Multiple axial images were obtained of the head without intravenous contrast. This CT exam was performed using one or more of the following dose reduction techniques: automated exposure control, adjustment of the mA and/or kV according to patient size, and/or use of iterative reconstruction technique. RADIATION DOSE: CTDIvol = 44.99 mGy, DLP = 947.97 mGy-cm COMPARISON: No relevant prior studies available. FINDINGS: BRAIN AND EXTRA-AXIAL SPACES: Unremarkable. No intra- or extra-axial hemorrhage. No evidence of acute infarct. No intracranial mass or mass effect. There is preservation of the ryan/white matter interface. Posterior fossa structures are unremarkable. Ventricles are appropriate for age. No hydrocephalus. Basal cisterns are patent. BONES/JOINTS: Unremarkable. No discrete lytic or blastic abnormalities. SINUSES: Unremarkable as visualized. Clear. MASTOID AIR CELLS: Unremarkable. Clear. ORBITS: Visualized globes, extraocular muscles, optic nerves and retrobulbar fat appear unremarkable. CT/Brain/Head without Contrast IMPRESSION: No CT evidence of intracranial bleeding, acute ischemic infarct or acute intracranial abnormality. Electronically Signed: Victorino Gloria MD at 10:49 EST ,
[2023-05-31 09:56] LABS: Basophil# 0.09 X10^3/uL; Basophil% 0.7 % (0-1); Eosinophil# 0.92 X10^3/uL; Eosinophils% 7.5 % (0-5); Hematocrit 28.7 % (40-54); Hemoglobin 8.6 g/dL (13.0-16.5); Lymphocyte % 7.3 % (19-41); Mean Corpuscular Hgb 25.9 pg (27.0-32.0); Mean Corpuscular Volume 86.4 fL (80-94); Mean Platelet Vol. 9.6 fl (6.2-12.0); Monocyte# 1.28 X10^3/uL; Monocyte% 10.4 % (0-10); NRBC Flagged by Analyzer 0 % (0-5); Neutrophil % 73.1 % (47-70); Platelet Count 151 K/mm3 (150-450); RBC Distribution Width CV 18.9 % (11.6-14.6); Red Blood Count 3.32 M/mm3 (4.6-6.2); White Blood Count 12.3 K/mm3 (4.4-11.0)
[2023-05-31 10:01] LABS: International Normalized Ratio 1.8; Partial Thromboplast Time 32.1 Seconds (24.1-36.2); Prothrombin Time (Protime)PT. 20.8 SECONDS (11.7-14.9)
[2023-05-31 10:20] LABS: BNP,B-Type NATRIURETIC PEPTIDE 340.7 pg/mL (0-100)
[2023-05-31 10:26] LABS: Mucous, Urine 0 SEEN /hpf (<or=2+); Squamous Epithelial Cells - UA 0 SEEN /hpf (0-5)
[2023-05-31 10:30] LABS: AST(SGOT) 21 U/L (15-37); Alanine Aminotransfer ALT/SGPT 20 U/L (16-61); Albumin, Serum 2.5 g/dL (3.2-5.0); Alkaline Phosphatase 90 U/L (45-117); Anion Gap 4 (5-15); BUN 33 mg/dL (7-18); BUN/Creat Ratio 20.6 RATIO (10-20); Bilirubin, Direct 0.19 mg/dL (0.00-0.30); Calcium,Total 8.9 mg/dL (8.5-10.1); Chloride 114 mmol/L (98-107); EST Glomerular Filtration Rate 44 mL/min (>60); Est Glom Filt Rate - Afr Amer 53 mL/min (>60); Estimated Creatinine Clearance 46.23 ml/min; Globulin 5.8 g/dL (2.2-4.2); Glucose 105 mg/dL (74-106); Lactic Acid 1.5 mmol/L (0.4-1.9); Potassium 4.6 mmol/L (3.5-5.1); Protein, Total 8.3 g/dL (6.4-8.2); Sodium Level 137 mmol/L (136-145); Troponin-I HS 80 pg/mL (3.0-78.0)
[2023-05-31 10:34] LABS: Color, Urine Amber (Yellow); Glucose, Dipstick Normal (Normal); Ketone-Dipstick 5 mg/dl (Negative); Leukocyte Esterase-Dipstick 500 /ul (Negative); Nitrite-Dipstick Positive (Negative); Occult Blood-Urine 250 /ul (Negative); Protein-Dipstick 500 mg/dl (Negative); Urine Bilirubin Dipstick Negative (Negative); Urine Clarity Cloudy (Clear); Urine Urobilinogen Normal (Normal)
[2023-05-31 10:54] LABS: Bacteria 1+ /hpf (None Seen); Red Blood Cells-Urine 25-50 SEEN /hpf (0-5); White Blood Cells 25-50 SEEN /hpf (0-5)
[2023-05-31 10:55] LABS: Coarse Granular Cast 0-5 SEEN /lpf (0-5 /lpf)
[2023-05-31] MEDS: Acetaminophen 500 MG Tablet 1000 MG PO (12:19)
[2023-05-31] MEDS: dilTIAZem 25 MG/5 ML Vial 10 MG IV BOLUS ×2 (12:19→17:13)
[2023-05-31] MEDS: Furosemide 100 MG/10 ML Vial 80 MG IV (13:51)
--- NOTE | 2023-05-31 13:56 | NURSING ---
DR MCDONALD, JUAQUIN AVALOS, FOR DR ENRIQUE
[2023-05-31] MEDS: Cefepime HCl 2 GM in 0.9% Normal Saline (100mL MB+) 100 ML IV (15:44)
--- NOTE | 2023-05-31 16:13 | NURSING ---
CALLED JUAQUIN VENTURA WAITING ON DISCHARGES
--- NOTE | 2023-05-31 17:52 | NURSING ---
CALLED TRANSPORT, ETA IS BEFORE 190
== END 2023-05-31 20:46 | disposition short-term general hospital (02) ==
PROVIDERS: Emergency Provider Emergency Medicine; PCP Internal Medicine; Visit Provider Emergency Medicine
DX: R41.0 Disorientation, unspecified (principal); I48.20 Chronic atrial fibrillation, unspecified; Z79.01 Long term (current) use of anticoagulants; W06.XXXA Fall from bed, initial encounter; Y92.129 Unspecified place in nursing home as the place of occurrence of the external cause; I10 Essential (primary) hypertension; E78.5 Hyperlipidemia, unspecified; Z79.899 Other long term (current) drug therapy; N40.0 Benign prostatic hyperplasia without lower urinary tract symptoms; Z96.652 Presence of left artificial knee joint; Z95.2 Presence of prosthetic heart valve; M79.89 Other specified soft tissue disorders
CPT/HCPCS: 70450; 71045; 80048; 80076; 81001; 83605; 83880; 84484; 85025; 85610; 85730; 93005; 93970; 96361; 96374; 96375; 96376; 99285; J7050; A4216; J1940

== ENCOUNTER 2023-07-20 08:01 | Outpatient (CLI) | payer MEDICARE, SELFPAY ==
--- NOTE | 2023-07-20 08:53 | ECHOD_ITS ---
Reason For Study: ENDOCARDITIS Procedure This was a 2D Doppler, Color Flow transthoracic echocardiogram. Exam performed in department. Left Ventricle Normal LV size. Mild concentric left ventricular hypertrophy. The left ventricular ejection fraction is 60 %. No regional wall motion abnormalities noted. Right Ventricle Normal RV size. Normal systolic function. Atria The left atrium is moderately enlarged. The right atrium is moderately enlarged. Mitral Valve There is mild to moderate mitral annular calcification. Tricuspid Valve Normal tricuspid valve. Mild to moderate (1-2+) tricuspid valve insufficiency. Pulmonary artery systolic pressure is 44 mmHg. Aortic Valve Peak aortic valve gradient 16 mmHg. Mean aortic valve gradient 10 mmHg. Bioprosthetic aortic valve. Pulmonic Valve Normal pulmonic valve. Great Vessels Calcified aortic root. The pulmonary artery is normal size. Inferior vena cava collapse with sniff. Pericardium/Pleural No pericardial effusion. MMode/2D Measurements & Calculations LVIDd: 5.1 cm IVSd: 1.2 cm LVOT diam: 2.1 cm LVIDs: 3.7 cm LVPWd: 1.4 cm LVOT area: 3.3 cm2 RVDd: 3.8 cm FS: 28.1 % Ao root diam: 3.4 cm LAV(MOD-bp): 110.2 ml LVAd ap4: 33.2 cm2 LAV(MOD-bp) Indexed: 48.0 ml/m2 LVLd ap4: 8.6 cm LAV(MOD-sp2): 100.8 ml EDV(MOD-sp4): 108.7 ml LAV(MOD-sp4): 104.9 ml EDV(sp4-el): 109.3 ml LVAs ap4: 19.8 cm2 LVLs ap4: 7.2 cm ESV(MOD-sp4): 48.0 ml ESV(sp4-el): 46.0 ml EF(MOD-sp4): 55.8 % EF(sp4-el): 57.9 % SV(MOD-sp4): 60.7 ml SV(sp4-el): 63.2 ml LA A4 area: 31.2 cm2 LA dimension(2D): 4.3 cm RA A4 area: 26.9 cm2 Doppler Measurements & Calculations MV E max jamey: 172.2 cm/sec MV V2 max: 206.6 cm/sec MV P1/2t max jamey: 209.7 cm/sec MV max P.1 mmHg MV P1/2t: 80.5 msec MV V2 mean: 121.4 cm/sec MV mean P.0 mmHg MV dec slope: 763.2 cm/sec2 MV V2 VTI: 34.7 cm MVA(P1/2t): 2.7 cm2 MVA(VTI): 2.8 cm2 Ao V2 max: 201.9 cm/sec LV V1 max: 132.3 cm/sec SV(LVOT): 98.4 ml Ao max P.4 mmHg LV V1 max P.1 mmHg Ao V2 mean: 148.6 cm/sec LV V1 mean P.3 mmHg Ao mean P.6 mmHg LV V1 mean: 98.6 cm/sec Ao V2 VTI: 41.0 cm LV V1 VTI: 29.6 cm AV (velocity ratio): 0.72 RADHA(I,D): 2.4 cm2 RADHA(V,D): 2.2 cm2 PA V2 max: 65.5 cm/sec TR max jamey: 314.1 cm/sec TR max P.5 mmHg ECHO/Echo Complete Interpretation Summary Normal LV size. Mild concentric left ventricular hypertrophy. The left ventricular ejection fraction is 60 %. The left atrium is moderately enlarged. The right atrium is moderately enlarged. Mean aortic valve gradient 10 mmHg. Bioprosthetic aortic valve. Ordering Physician: Cristina Freitas/Jair Coto Referring Physician: JOLANTA DOMINGUEZ Performed By: Clare Tony RDCS
== END 2023-07-20 23:59 | disposition home or self-care (01) ==
LOC: CVS 08:04
PROVIDERS: PCP Internal Medicine; Referring Provider Physician Assistant Medical; Visit Provider Physician Assistant Medical
DX: I70.0 Atherosclerosis of aorta (principal); I39 Endocarditis and heart valve disorders in diseases classified elsewhere; Q24.8 Other specified congenital malformations of heart
CPT/HCPCS: 93306

== ENCOUNTER → 2023-09-21 | Outpatient (CLI) | payer MEDICARE, SELFPAY ==
[2023-09-21 11:42] LABS: Creatinine, Serum 1.29 mg/dL (0.70-1.30); EST Glomerular Filtration Rate 56 mL/min (>60); Est Glom Filt Rate - Afr Amer 68 mL/min (>60)
== END | disposition home or self-care (01) ==
LOC: LAB 11:13
PROVIDERS: PCP Internal Medicine; Referring Provider Orthopaedic Surgery; Visit Provider Orthopaedic Surgery
DX: Z01.812 Encounter for preprocedural laboratory examination (principal)
CPT/HCPCS: 36415; 82565

== ENCOUNTER 2023-11-12 10:40 | Emergency (ER) | payer MEDICARE, SELFPAY ==
[2023-11-12 10:41] VITALS: BP 182/95; PULSE 127; RESP 22; TEMP 36.2; O2SAT 99; BMI 34.4
--- NOTE | 2023-11-12 10:53 | EX.ED.GUMALE ---
HPI History of Present Illness Chief Complaint: Complaint Informant: patient and spouse/S.O. Pain Onset: Today Current Severity: Mild Maximum Severity: Mild Narrative Narrative: 82-year-old male history of suprapubic catheter for the last several months. Today he thought his urine looked cloudy. Mild discomfort. No fever. No vomiting or diarrhea. Catheter is draining well. Prior similar symptoms: Yes Recent Illness/Hospitalization: No PFSH PFSH Medical History Endocarditis and heart valve disorders in diseases classified elsewhere MSSA bacteremia Prosthetic valve endocarditis Atrial fibrillation with RVR Kidney stones Kidney disease Chronic indwelling Lockwood catheter Anemia Cancer Irregular heart beat Atrial fibrillation DVT (deep venous thrombosis) Abnormal echocardiogram Aortic stenosis Anemia Wears hearing aid Loss of hearing Wears glasses Depression History of steroid therapy Ambulates with cane Arthritis Prostate disease Easy bruising Restless legs Back pain Gastric reflux Non-smoker Leg cramps History of edema Hypertension History of echocardiogram Cardiology follow-up encounter Nonrheumatic aortic (valve) stenosis Multiple premature ventricular complexes Prostate cancer metastatic to bone GERD (gastroesophageal reflux disease) Obesity Inguinal hernia Diverticulosis Osteoarthritis BPH (benign prostatic hyperplasia) Abnormal electrocardiogram Lung nodule Essential hypertension Hyperlipidemia Chronic back pain Home Medications ?Medication ?Instructions ?Recorded ?Last Taken ?Type acidophilus 25 million 1 tab PO DAILY PROBIOTC 03/12/14 05/31/23 History cell-pectin, citrus 100 mg tablet finasteride 5 mg tablet 5 mg PO QHS PROSTATE 03/21/22 05/30/23 History cholecalciferol (vitamin D3) 125 125 mcg PO DAILY SUPPLEMENT 04/10/22 05/31/23 History mcg (5,000 unit) tablet (Vitamin D3) [id number]-[id number]-ngenh acid 0.4 1 tab PO DAILY SUPPLEMENT 04/10/22 05/31/23 History mg-lycopene 300 mcg-lutein 250 mcg tablet (Centrum Silver) albuterol sulfate 90 mcg/actuation 2 puff inhalation Q6H PRN ROCÍO 10/12/22 Unknown History aerosol inhaler OF BREATH/WHEEZING tamsulosin 0.4 mg capsule 0.4 mg PO QHS PROSTATE 10/12/22 05/30/23 History cefazolin 2 gram intravenous 2 g IV Q8H 38 days 05/05/23 Unknown Rx solution gentamicin 100 mg/100 mL in sodium 90 mg (90 mL) IV Q12H 10 days 12/29/23 Unknown Rx chloride(iso) intravenous piggyback acetaminophen 650 mg 1,300 mg PO Q6H PRN pain 05/31/23 05/30/23 History tablet,extended release (8 Hour Pain Reliever) cefepime 2 gram solution for 2 g IV Q12H 05/31/23 05/30/23 History injection hydroxyzine HCl 25 mg tablet 25 mg PO Q12H 05/31/23 05/31/23 History ondansetron 4 mg disintegrating 4 mg PO Q8H PRN NAUSEA 05/31/23 Unknown History tablet pantoprazole 40 mg tablet,delayed 40 mg PO DAILY ACID REFLUX 05/31/23 05/31/23 History release diltiazem HCl 240 mg 240 mg PO DAILY #90 caps 07/05/23 Unknown Rx capsule,extended release 24 hr metoprolol tartrate 50 mg tablet 50 mg PO BID BLOOD PRESSURE #180 07/05/23 Unknown Rx tabs apixaban 5 mg tablet (Eliquis) 5 mg PO BID BLOOD THINNER #180 tabs 07/18/23 Unknown Rx potassium chloride 20 mEq 20 meq PO BID #180 tabs 07/18/23 Unknown Rx tablet,extended release furosemide 20 mg tablet (Lasix) 40 mg (2 x 20 mg) PO DAILY #180 08/21/23 Unknown Rx tabs phenazopyridine 100 mg tablet 200 mg (2 x 100 mg) PO TID PRN 11/12/23 Unknown Rx (Pyridium) pain #9 tabs sulfamethoxazole 800 1 tab PO BID 7 days #14 tabs 11/12/23 Unknown Rx mg-trimethoprim 160 mg tablet (Bactrim DS) Allergy/AdvReac Type Severity Reaction Status Date / Time No Known Allergies Allergy Verified 04/27/23 12:13 Family History Father Heart disease Surgical History History of AAA (abdominal aortic aneurysm) repair History of transcatheter aortic valve replacement (TAVR) (~09/26/22) History of cystoscopy History of total knee arthroplasty History of inguinal hernia repair History of carpal tunnel release Amputated toe History of left knee replacement Social History household members: spouse Smoking Status: Never smoker substance use type: does not use ROS ROS ED ROS Narrative Denies recent illness. Denies fever or chills. Review of Systems ROS Unobtainable: Denies due to encephalopathy Constitutional Constitutional ED: Denies chills or fever(s) Eyes Eyes: Denies blurry vision ENT ENT ED: Denies ear pain Cardiovascular Cardiovascular: Denies chest pain Respiratory/Chest Respiratory/Chest: Denies cough or dyspnea Gastrointestinal Gastrointestinal: Denies abdominal pain, constipation, diarrhea, melena, nausea or vomiting Genitourinary Genitourinary ED: Denies dysuria or hematuria Musculoskeletal Musculoskeletal: Denies arthralgias or back pain Integumentary Denies abscess or rash Neurologic Neurologic: Denies headache(s) Psychiatric Psychiatric: Denies anxiety or depression Endocrine Endocrinology: Denies polydipsia Hematologic/Lymphatic Hematologic/Lymphatic: Denies easy bleeding, easy bruising or lymphadenopathy Allergic/Immunologic Allergic/Immunologic ED: Denies mouth swelling, tongue swelling or urticaria EXAM Physical Exam Narrative Exam Narrative: Well-appearing 82-year-old male. Vital signs stable afebrile. at bedside. H EENT exam unremarkable. Neck nontender. Lungs clear to auscultation bilaterally. Heart tachycardic no murmur. Chest wall and ribs nontender. Abdomen soft, nontender, nondistended, normal bowel sounds without peritoneal signs. Suprapubic catheter in place. Normal external exam. Suprapubic catheter is draining yellow urine. It is mildly cloudy. No gross blood or clots. Moving all 4 extremities. Nontender no edema. He is awake and alert. Answering questions following commands. Const Vital Signs: 11/12/23 10:41 Temperature 97.1 F L Temperature Source Temporal Pulse Rate 127 H Respiratory Rate 22 H Blood Pressure 182/95 H Blood Pressure Mean 124 Pulse Ox 99 Oxygen Delivery Method Room Air Positive well nourished and well developed; Negative for cachectic, contractures or unkempt General Appearance ED: well developed and NAD; Negative for unkempt, cachectic, contractures or pallor Nutritional Appearance: Negative for cachectic HEENT Reports moist mucous membranes normocephalic and atraumatic; Negative for trauma or tenderness Eyes PERRL and EOMs intact bilaterally General Eye ED: Negative for pale conjunctiva Neck no lymphadenopathy, supple and no JVD General: Negative for tenderness or other Resp normal respiratory effort and clear to auscultation bilaterally Effort and Inspection: Negative for retractions Auscultation: Negative for rales, rhonchi, wheezes or diminished lung sounds Cardio regular rhythm; Negative for regular rate, S1 normal heart sound or S2 normal heart sound Rate: tachycardic GI non-tender, non-distended and no masses Inspection: Negative for abdominal distention Auscultation: normoactive bowel sounds Palpation: soft; Negative for tender or guarding no CVA tenderness Bladder / Kidney Exam: No CVA tenderness Groin / Perineum Exam: Negative for edema Back/Spine no CVA tenderness General Back: Negative for CVA tenderness Cervical Spine: Negative for cervical spine tenderness Thoracic Spine / Upper Back: Negative for thoracic spinal tenderness Lumbar Spine / Lower Back: Negative for lumbar spinal tenderness Extremity normal to inspection General Extremety ED: Negative for edema or pulses abnormal General Extremity: Negative for edema or pulses abnormal Neuro oriented x3, CN's II-XII intact bilaterally, moves all extremities and no focal motor deficits Sensorium / Orientation: alert, oriented to person, oriented to place and oriented to time; Negative for orientation impaired, confused, lethargic or stuporous Motor Exam: strength 5/5 throughout Psych mental status grossly normal Appearance: Negative for unkempt Attitude: No agitated Mood & Affect: Negative for depressed, anxious or tearful Thought Process: normal thought process Thought Content: normal thought content Skin General Skin Exam: Negative for jaundice or pallor Lesions: no lesions Rashes: no rashes MDM MDM MDM Narrative Medical decision making narrative: 82-year-old male with cloudy urine from suprapubic catheter. Draining well. There is no blood or clots. UA will be obtained. Repeat exam patient doing well at 12:25 PM. Urine shows greater than 100 white cells and 2+ bacteria culture will be sent. The last culture I reviewed with his was basically sensitive to almost all the antibiotics. He will be placed on Bactrim twice daily for 7 days. Pyridium for bladder spasm. And outpatient follow-up. Patient and are comfortable with the plan. He will be given dose of the Pyridium and Bactrim prior to discharge. Lab Data Attestation: I reviewed the patient's lab results. Lab results narrative: UA shows greater than 100 white cells. No squamous cells. 2+ bacteria. No nitrites. Culture sent. Labs: Laboratory Results - last 24 hr 11/12/23 11:20 Urine Color Yellow Urine Clarity Cloudy Urine pH 6.0 Ur Specific [place] 1.010 Urine Protein 100 H Urine Glucose (UA) Normal Urine Ketones Negative Urine Occult Blood 150 H Urine Nitrite Negative Urine Bilirubin Negative Urine Urobilinogen Normal Ur Leukocyte Esterase 500 H Urine RBC 0 SEEN Urine WBC >100 SEEN Ur Squamous Epith Cells 0 SEEN Urine Bacteria 2+ Urine Mucus 0 SEEN Rhythm Strip Rhythm Strip: A-fib Rate: 76 Ectopy: None EKG Initial EKG: Attestation: I personally reviewed and interpreted this EKG as follows: Interpretation: Atrial Fibrillation Comments: A-fib rate 76. No acute signs of GA or ischemia. Discharge Plan Triage Chief Complaint: Complaint ED Provider: Luis Perez Dx/Rx/DC Orders Clinical Impression: Acute UTI, Chronic suprapubic catheter, A-fib Instructions: Urinary Tract Infections in Men Prescriptions: New sulfamethoxazole-trimethoprim [Bactrim DS] 800-160 mg tablet 1 tab PO BID 7 Days Qty: 14 0RF phenazopyridine [Pyridium] 100 mg tablet 200 mg PO TID PRN (Reason: pain) Qty: 9 0RF No Action albuterol sulfate 90 mcg/actuation HFA aerosol inhaler 2 puff inhalation Q6H PRN (Reason: SHORNSS OF BREATH/WHEEZING) acidophilus-pectin, citrus 1 TABLET tablet 1 tab PO DAILY tamsulosin 0.4 mg capsule 0.4 mg PO QHS finasteride 5 mg tablet 5 mg PO QHS Centrum Silver 0.4 mg-300 mcg- 250 mcg Tablet 1 tab PO DAILY cholecalciferol (vitamin D3) [Vitamin D3] 125 mcg (5,000 unit) Tablet 125 mcg PO DAILY cefazolin 2 gram recon soln 2 g IV Q8H 38 Days Rx Instructions: dx: endocarditis stop date 06/13/23 labs on Mondays and : bmp, LFT, cbc, gentamicin trough. Fax to [phone]. Routine picc care per protocol. gentamicin in NaCl (iso-osm) 100 mg/100 mL piggyback 90 mg IV Q12H 10 Days Rx Instructions: dx: endocarditis stop date 05/16/23 labs on Mondays and Thursdays: bmp, LFT, cbc, gentamicin trough. Fax to [phone]. Routine picc care per protocol. ondansetron 4 mg tablet,disintegrating 4 mg PO Q8H PRN (Reason: NAUSEA ) pantoprazole 40 mg tablet,delayed release (DR/EC) 40 mg PO DAILY acetaminophen [8 Hour Pain Reliever] 650 mg tablet extended release 1,300 mg PO Q6H PRN (Reason: pain) cefepime 2 gram recon soln 2 g IV Q12H hydroxyzine HCl 25 mg tablet 25 mg PO Q12H metoprolol tartrate 50 mg tablet 50 mg PO BID Qty: 180 3RF diltiazem HCl 240 mg capsule,extended release 24hr 240 mg PO DAILY Qty: 90 3RF Eliquis 5 mg tablet 5 mg PO BID Qty: 180 3RF potassium chloride 20 mEq tablet extended release 20 meq PO BID Qty: 180 3RF furosemide [Lasix] 20 mg tablet 40 mg PO DAILY Qty: 180 3RF Primary Care Provider: Darrin Ramirez Referrals: Celia Barnes MD [Med Staff - Active Staff] - Activity Restrictions/Additional Instructions: Plenty of fluids and rest. You have a urinary tract infection a urine culture will be sent. If that returns and is not responsive to the antibiotic we chose will be called and will change antibiotic. You will be started on antibiotic Bactrim 1 pill twice a day for 7 days. Also the antispasm medication Pyridium that you can use up to 3 times a day for bladder spasm. Follow-up with your primary care physician or your urologist for further evaluation and show ensure you are getting better. Print Language: Malian Disposition Disposition: Home, Self Care
--- NOTE | 2023-11-12 10:59 | EKG12_ITS ---
Test Reason : Blood Pressure : / mmHG Vent. Rate : 076 BPM Atrial Rate : 000 BPM P-R Int : 000 ms QRS Dur : 094 ms QT Int : 400 ms P-R-T Axes : 000 046 011 degrees QTc Int : 450 ms Atrial fibrillation Abnormal ECG Confirmed by Bryan Mac ([id number]), non linear editor MADELINE AKERS ([id number]) on 11/13/2023 2:07:03 PM Referred By: Confirmed By:Bryan Mac
[2023-11-12 11:24] LABS: Mucous, Urine 0 SEEN /hpf (<or=2+); Red Blood Cells-Urine 0 SEEN /hpf (0-5); Squamous Epithelial Cells - UA 0 SEEN /hpf (0-5)
[2023-11-12 11:33] LABS: Color, Urine Yellow (Yellow); Glucose, Dipstick Normal (Normal); Ketone-Dipstick Negative (Negative); Leukocyte Esterase-Dipstick 500 /ul (Negative); Nitrite-Dipstick Negative (Negative); Occult Blood-Urine 150 /ul (Negative); Protein-Dipstick 100 mg/dl (Negative); Urine Bilirubin Dipstick Negative (Negative); Urine Clarity Cloudy (Clear); Urine Urobilinogen Normal (Normal)
[2023-11-12 11:56] LABS: Bacteria 2+ /hpf (None Seen); White Blood Cells >100 SEEN /hpf (0-5)
[2023-11-12] MEDS: Phenazopyridine 95 MG Tablet PO (12:42)
[2023-11-12] MEDS: Smz/Tmp Ds Tablet 1 TABLET PO (12:42)
[2023-11-12 12:44] VITALS: BP 139/78; PULSE 67; RESP 15; TEMP 36.3; O2SAT 99
== END 2023-11-12 12:46 | disposition home or self-care (01) ==
PROVIDERS: Emergency Provider Emergency Medicine; PCP Family Medicine; Visit Provider Emergency Medicine
DX: N39.0 Urinary tract infection, site not specified (principal); I48.91 Unspecified atrial fibrillation; E78.5 Hyperlipidemia, unspecified; I10 Essential (primary) hypertension; Z96.0 Presence of urogenital implants; N40.0 Benign prostatic hyperplasia without lower urinary tract symptoms; Z79.899 Other long term (current) drug therapy; K21.9 Gastro-esophageal reflux disease without esophagitis; Z79.01 Long term (current) use of anticoagulants; Z95.2 Presence of prosthetic heart valve; Z96.652 Presence of left artificial knee joint
CPT/HCPCS: 81001; 87086; 87088; 87186; 93005; 99283

== ENCOUNTER 2023-11-30 05:15 | Emergency (ER) | payer MEDICARE, SELFPAY ==
[2023-11-30 05:16] VITALS: BP 178/104; PULSE 99; RESP 12; TEMP 36.2; O2SAT 98; BMI 33.3
[2023-11-30 07:06] LABS: Glucose, Dipstick Normal (Normal); Ketone-Dipstick Negative (Negative); Leukocyte Esterase-Dipstick 500 /ul (Negative); Nitrite-Dipstick Positive (Negative); Occult Blood-Urine 150 /ul (Negative); Protein-Dipstick 100 mg/dl (Negative); Urine Clarity Cloudy (Clear); Urine Urobilinogen 4 mg/dl (Normal)
[2023-11-30 07:11] LABS: Color, Urine SEE COMMENT BELOW (Yellow); Urine Bilirubin Dipstick 3 mg/dL (Negative)
--- NOTE | 2023-11-30 07:11 | EDS_ITS ---
HPI History of Present Illness Chief Complaint: Complaint Detail of Chief Complaint: Suprapubic catheter not draining Informant: patient Onset/Context/Timing Onset: Today Narrative Narrative: Patient presents secondary to concerns that his suprapubic catheter is not draining. He had his suprapubic catheter placed by Dr. Garcia in [place] approximately 3 months ago. The catheter was last changed out 3 weeks ago. He states that since this catheter was placed he has had poor drainage of urine. He is getting bladder spasms. He tried irrigating the catheter last night. He states he was able to push water into the catheter but could not get any return. Patient was treated here earlier this month for a UTI with Bactrim and Pyridium. Culture was positive for E. coli that was sensitive to Bactrim. [facility] Medical History Endocarditis and heart valve disorders in diseases classified elsewhere MSSA bacteremia Prosthetic valve endocarditis Atrial fibrillation with RVR Kidney stones Kidney disease Chronic indwelling Lockwood catheter Anemia Cancer Irregular heart beat Atrial fibrillation DVT (deep venous thrombosis) Abnormal echocardiogram Aortic stenosis Anemia Wears hearing aid Loss of hearing Wears glasses Depression History of steroid therapy Ambulates with cane Arthritis Prostate disease Easy bruising Restless legs Back pain Gastric reflux Non-smoker Leg cramps History of edema Hypertension History of echocardiogram Cardiology follow-up encounter Nonrheumatic aortic (valve) stenosis Multiple premature ventricular complexes Prostate cancer metastatic to bone GERD (gastroesophageal reflux disease) Obesity Inguinal hernia Diverticulosis Osteoarthritis BPH (benign prostatic hyperplasia) Abnormal electrocardiogram Lung nodule Essential hypertension Hyperlipidemia Chronic back pain Home Medications ?Medication ?Instructions ?Recorded ?Last Taken ?Type acidophilus 25 million 1 tab PO DAILY PROBIOTC 03/12/14 05/31/23 History cell-pectin, citrus 100 mg tablet finasteride 5 mg tablet 5 mg PO QHS PROSTATE 03/21/22 05/30/23 History cholecalciferol (vitamin D3) 125 125 mcg PO DAILY SUPPLEMENT 04/10/22 05/31/23 History mcg (5,000 unit) tablet (Vitamin D3) wvyrfqzw-boy-aruka acid 0.4 1 tab PO DAILY SUPPLEMENT 04/10/22 05/31/23 History mg-lycopene 300 mcg-lutein 250 mcg tablet (Centrum Silver) albuterol sulfate 90 mcg/actuation 2 puff inhalation Q6H PRN ROCÍO 10/12/22 Unknown History aerosol inhaler OF BREATH/WHEEZING tamsulosin 0.4 mg capsule 0.4 mg PO QHS PROSTATE 10/12/22 05/30/23 History cefazolin 2 gram intravenous 2 g IV Q8H 38 days 05/05/23 Unknown Rx solution gentamicin 100 mg/100 mL in sodium 90 mg (90 mL) IV Q12H 10 days 05/05/23 Unknown Rx chloride(iso) intravenous piggyback acetaminophen 650 mg 1,300 mg PO Q6H PRN pain 05/31/23 05/30/23 History tablet,extended release (8 Hour Pain Reliever) cefepime 2 gram solution for 2 g IV Q12H 05/31/23 05/30/23 History injection hydroxyzine HCl 25 mg tablet 25 mg PO Q12H 05/31/23 05/31/23 History ondansetron 4 mg disintegrating 4 mg PO Q8H PRN NAUSEA 05/31/23 Unknown History tablet pantoprazole 40 mg tablet,delayed 40 mg PO DAILY ACID REFLUX 05/31/23 05/31/23 History release diltiazem HCl 240 mg 240 mg PO DAILY #90 caps 07/05/23 Unknown Rx capsule,extended release 24 hr metoprolol tartrate 50 mg tablet 50 mg PO BID BLOOD PRESSURE #180 07/05/23 Unknown Rx tabs apixaban 5 mg tablet (Eliquis) 5 mg PO BID BLOOD THINNER #180 tabs 07/18/23 Unknown Rx potassium chloride 20 mEq 20 meq PO BID #180 tabs 07/18/23 Unknown Rx tablet,extended release furosemide 20 mg tablet (Lasix) 40 mg (2 x 20 mg) PO DAILY #180 08/21/23 Unknown Rx tabs phenazopyridine 100 mg tablet 200 mg (2 x 100 mg) PO TID PRN 11/12/23 Unknown Rx (Pyridium) pain #9 tabs sulfamethoxazole 800 1 tab PO BID 7 days #14 tabs 11/12/23 Unknown Rx mg-trimethoprim 160 mg tablet (Bactrim DS) cefdinir 300 mg capsule 300 mg PO BID #14 caps 11/30/23 Unknown Rx phenazopyridine 200 mg tablet 200 mg PO TID PRN pain 6 doses #6 11/30/23 Unknown Rx (Pyridium) tabs Allergy/AdvReac Type Severity Reaction Status Date / Time No Known Allergies Allergy Verified 11/30/23 05:20 Family History Father Heart disease Surgical History History of AAA (abdominal aortic aneurysm) repair History of transcatheter aortic valve replacement (TAVR) (~09/26/22) History of cystoscopy History of total knee arthroplasty History of inguinal hernia repair History of carpal tunnel release Amputated toe History of left knee replacement Social History household members: spouse Smoking Status: Never smoker substance use type: does not use ROS ROS ED Constitutional Constitutional ED: Denies chills or fever(s) Eyes Eyes: Denies discharge from eye(s) ENT ENT ED: Denies discharge from eye(s), rhinorrhea or sore throat Cardiovascular Cardiovascular: Denies chest pain or palpitations Respiratory/Chest Respiratory/Chest: Denies cough or dyspnea Gastrointestinal Gastrointestinal: Denies abdominal pain, nausea or vomiting Genitourinary Genitourinary ED: Reports difficulty urinating; Denies dysuria Musculoskeletal Musculoskeletal: Denies back pain or extremity pain Integumentary Denies Abrasions or rash Neurologic Neurologic: Denies headache(s) or weakness Psychiatric Psychiatric: Denies anxiety or depression Allergic/Immunologic Allergic/Immunologic ED: Denies lip swelling or urticaria EXAM Physical Exam Const Vital Signs: 11/30/23 05:16 Temperature 97.1 F L Temperature Source Temporal Pulse Rate 99 Respiratory Rate 12 Blood Pressure 178/104 H Blood Pressure Mean 128 Pulse Ox 98 Oxygen Delivery Method Room Air Positive well nourished and well developed General Appearance ED: well developed HEENT Reports moist mucous membranes Eyes EOMs intact bilaterally Chest Wall inspection of chest normal and palpation of chest normal Resp normal respiratory effort and clear to auscultation bilaterally Cardio regular rate and regular rhythm GI GI Narrative: Abdomen soft with mild tenderness in the suprapubic area. Suprapubic catheter site is clean without sign of infection. Extremity normal to inspection Neuro oriented x3 MDM MDM MDM Narrative Medical decision making narrative: 24 Indonesian suprapubic catheter was changed out by myself. Catheter slides and without resistance. Balloon was inflated. There is minimal urine return. Nursing staff went to irrigate the catheter and did note some urine in the tubing They were able to irrigate without difficulty. New urine sample has been collected and will be sent to the infection. History & Record Review Discussion w/independent historian: Patient Additional record(s) reviewed:: Prior ED visit and Prior labs Lab Data Attestation: I reviewed the patient's lab results. Labs: Laboratory Results - last 24 hr 11/30/23 06:48 Urine Color SEE COMMENT BELOW Urine Clarity Cloudy Urine pH 5.0 Ur Specific [place] 1.020 Urine Protein 100 H Urine Glucose (UA) Normal Urine Ketones Negative Urine Occult Blood 150 H Urine Nitrite Positive H Urine Bilirubin 3 H Urine Urobilinogen 4 H Ur Leukocyte Esterase 500 H Urine RBC 5-10 SEEN Urine WBC >100 SEEN Ur Squamous Epith Cells 0-5 SEEN Urine Bacteria 1+ Urine Mucus 1+ Treatment and Re-Evaluation :: Urine was sent off of the new catheter. It does appear to still be infected with 1+ bacteria, greater than 100 white cells, positive nitrites. Urine will be sent for culture again. I will treat the patient with a course of cefdinir as his previous culture grew E. coli sensitive to everything other than quinolones. Patient will also be given a prescription for Pyridium as he states this did help his pain and spasms. Patient comfortable with the plan. Return instructions given. Discharge Plan Triage Chief Complaint: Complaint ED Provider: Gaby Martinez Dx/Rx/DC Orders Clinical Impression: UTI (urinary tract infection), Bladder spasm Instructions: ED Lockwood Catheter, Care, ED Bladder Infection, Male (Adult) Prescriptions: New cefdinir 300 mg capsule 300 mg PO BID Qty: 14 0RF phenazopyridine [Pyridium] 200 mg tablet 200 mg PO TID PRN (Reason: pain) Qty: 6 0RF No Action albuterol sulfate 90 mcg/actuation HFA aerosol inhaler 2 puff inhalation Q6H PRN (Reason: SHORNSS OF BREATH/WHEEZING) acidophilus-pectin, citrus 1 TABLET tablet 1 tab PO DAILY tamsulosin 0.4 mg capsule 0.4 mg PO QHS finasteride 5 mg tablet 5 mg PO QHS Centrum Silver 0.4 mg-300 mcg- 250 mcg Tablet 1 tab PO DAILY cholecalciferol (vitamin D3) [Vitamin D3] 125 mcg (5,000 unit) Tablet 125 mcg PO DAILY cefazolin 2 gram recon soln 2 g IV Q8H 38 Days Rx Instructions: dx: endocarditis stop date 06/13/23 labs on Mondays and : bmp, LFT, cbc, gentamicin trough. Fax to [phone]. Routine picc care per protocol. gentamicin in NaCl (iso-osm) 100 mg/100 mL piggyback 90 mg IV Q12H 10 Days Rx Instructions: dx: endocarditis stop date 05/16/23 labs on Mondays and : bmp, LFT, cbc, gentamicin trough. Fax to [phone]. Routine picc care per protocol. ondansetron 4 mg tablet,disintegrating 4 mg PO Q8H PRN (Reason: NAUSEA ) pantoprazole 40 mg tablet,delayed release (DR/EC) 40 mg PO DAILY acetaminophen [8 Hour Pain Reliever] 650 mg tablet extended release 1,300 mg PO Q6H PRN (Reason: pain) cefepime 2 gram recon soln 2 g IV Q12H hydroxyzine HCl 25 mg tablet 25 mg PO Q12H sulfamethoxazole-trimethoprim [Bactrim DS] 800-160 mg tablet 1 tab PO BID 7 Days Qty: 14 0RF phenazopyridine [Pyridium] 100 mg tablet 200 mg PO TID PRN (Reason: pain) Qty: 9 0RF metoprolol tartrate 50 mg tablet 50 mg PO BID Qty: 180 3RF diltiazem HCl 240 mg capsule,extended release 24hr 240 mg PO DAILY Qty: 90 3RF Eliquis 5 mg tablet 5 mg PO BID Qty: 180 3RF potassium chloride 20 mEq tablet extended release 20 meq PO BID Qty: 180 3RF furosemide [Lasix] 20 mg tablet 40 mg PO DAILY Qty: 180 3RF Primary Care Provider: Darrin Ramirez Referrals: Darrin Ramirez MD [Primary Care Provider] - Activity Restrictions/Additional Instructions: Follow-up with your urologist in the next 7 to 10 days. Print Language: Cambodian Disposition Disposition: Home, Self Care
[2023-11-30 07:13] LABS: Bacteria 1+ /hpf (None Seen); Mucous, Urine 1+ /hpf (<or=2+); Red Blood Cells-Urine 5-10 SEEN /hpf (0-5); Squamous Epithelial Cells - UA 0-5 SEEN /hpf (0-5); White Blood Cells >100 SEEN /hpf (0-5)
[2023-11-30 07:15] VITALS: BP 159/108; PULSE 92; RESP 18; O2SAT 94
[2023-11-30] MEDS: Cefdinir 300 MG Capsule PO (08:21)
[2023-11-30 08:26] VITALS: BP 154/102; PULSE 82; RESP 16; TEMP 36.8; O2SAT 97
== END 2023-11-30 08:28 | disposition home or self-care (01) ==
PROVIDERS: Emergency Provider Emergency Medicine; PCP Family Medicine; Visit Provider Emergency Medicine
DX: N39.0 Urinary tract infection, site not specified (principal); I48.91 Unspecified atrial fibrillation; I10 Essential (primary) hypertension; E78.5 Hyperlipidemia, unspecified; N32.89 Other specified disorders of bladder; Z85.46 Personal history of malignant neoplasm of prostate; N40.0 Benign prostatic hyperplasia without lower urinary tract symptoms; Z79.899 Other long term (current) drug therapy; Z79.01 Long term (current) use of anticoagulants; Z95.2 Presence of prosthetic heart valve; Z96.659 Presence of unspecified artificial knee joint; Z96.652 Presence of left artificial knee joint
CPT/HCPCS: 81001; 99282

== ENCOUNTER → 2024-02-18 | Outpatient (CLI) | payer MEDICARE, SELFPAY ==
[2024-02-18 09:18] LABS: Color, Urine Yellow (Yellow); Glucose, Dipstick Normal (Normal); Ketone-Dipstick Negative (Negative); Leukocyte Esterase-Dipstick 500 /ul (Negative); Nitrite-Dipstick Negative (Negative); Occult Blood-Urine 250 /ul (Negative); Protein-Dipstick 100 mg/dl (Negative); Urine Bilirubin Dipstick Negative (Negative); Urine Clarity Cloudy (Clear); Urine Urobilinogen Normal (Normal)
== END | disposition home or self-care (01) ==
LOC: LABSPEC 08:33
PROVIDERS: PCP Family Medicine; Visit Provider Family Medicine
DX: N39.0 Urinary tract infection, site not specified (principal)
CPT/HCPCS: 81002; 87077; 87086; 87088; 87186

== ENCOUNTER 2024-06-10 21:50 | Emergency (ER) | payer MEDICARE, SELFPAY ==
[2024-06-10 21:52] VITALS: BP 189/139; PULSE 112; RESP 18; TEMP 36.9; O2SAT 97
[2024-06-10 21:55] VITALS: BMI 37.2
[2024-06-10] MEDS: HYDROmorphone 1 MG/ML Syringe IM (23:19)
[2024-06-10] MEDS: Ondansetron ODT 4 MG Tablet PO (23:19)
[2024-06-10 23:28] VITALS: O2SAT 100
--- NOTE | 2024-06-10 23:53 | EX.ED.DYSGE1 ---
HPI History of Present Illness Chief Complaint: Complaint Informant: patient and family Narrative Narrative: Patient is a 83-year-old male with past medical history of hypertension hyperlipidemia BPH and prostate cancer with a chronic indwelling suprapubic Lockwood. He states that this evening the catheter accidentally got tugged and became dislodged. He states that the catheter has been out of its position for about 5 hours. As he knows it will need to be replaced he presents for evaluation [facility] Medical History Endocarditis and heart valve disorders in diseases classified elsewhere MSSA bacteremia Prosthetic valve endocarditis Atrial fibrillation with RVR Kidney stones Kidney disease Chronic indwelling Lockwood catheter Anemia Cancer Irregular heart beat Atrial fibrillation DVT (deep venous thrombosis) Abnormal echocardiogram Aortic stenosis Anemia Wears hearing aid Loss of hearing Wears glasses Depression History of steroid therapy Ambulates with cane Arthritis Prostate disease Easy bruising Restless legs Back pain Gastric reflux Non-smoker Leg cramps History of edema Hypertension History of echocardiogram Cardiology follow-up encounter Nonrheumatic aortic (valve) stenosis Multiple premature ventricular complexes Prostate cancer metastatic to bone GERD (gastroesophageal reflux disease) Obesity Inguinal hernia Diverticulosis Osteoarthritis BPH (benign prostatic hyperplasia) Abnormal electrocardiogram Lung nodule Essential hypertension Hyperlipidemia Chronic back pain Home Medications ?Medication ?Instructions ?Recorded ?Last Taken ?Type albuterol sulfate 90 mcg/actuation 2 puff inhalation Q6H PRN SHORNSS 10/12/22 Unknown History aerosol inhaler OF BREATH/WHEEZING cefazolin 2 gram intravenous 2 g IV Q8H 38 days 05/05/23 Unknown Rx solution gentamicin 100 mg/100 mL in sodium 90 mg (90 mL) IV Q12H 10 days 05/05/23 Unknown Rx chloride(iso) intravenous piggyback acetaminophen 650 mg 1,300 mg PO Q6H PRN pain 05/31/23 05/30/23 History tablet,extended release (8 Hour Pain Reliever) cefepime 2 gram solution for 2 g IV Q12H 05/31/23 05/30/23 History injection ondansetron 4 mg disintegrating 4 mg PO Q8H PRN NAUSEA 05/31/23 Unknown History tablet diltiazem HCl 240 mg 240 mg PO DAILY #90 caps 07/05/23 Unknown Rx capsule,extended release 24 hr metoprolol tartrate 50 mg tablet 50 mg PO BID BLOOD PRESSURE #180 07/05/23 Unknown Rx tabs potassium chloride 20 mEq 20 meq PO BID #180 tabs 07/18/23 Unknown Rx tablet,extended release phenazopyridine 100 mg tablet 200 mg (2 x 100 mg) PO TID PRN 11/12/23 Unknown Rx (Pyridium) pain #9 tabs cefdinir 300 mg capsule 300 mg PO BID #14 caps 11/30/23 Unknown Rx phenazopyridine 200 mg tablet 200 mg PO TID PRN pain 6 doses #6 11/30/23 Unknown Rx (Pyridium) tabs bisacodyl 10 mg rectal suppository 10 mg SC QDAY PRN 06/11/24 Unknown History furosemide 20 mg tablet (Lasix) 60 mg PO DAILY 06/11/24 Unknown History lorazepam 0.5 mg tablet 0.5 mg PO QHS PRN 06/11/24 Unknown History omeprazole 20 mg tablet,delayed 20 mg PO QDAY 06/11/24 Unknown History release oxycodone 5 mg tablet 5 mg PO BID PRN 06/11/24 Unknown History solifenacin 10 mg tablet (Vesicare) 10 mg PO QDAY 06/11/24 Unknown History trazodone 150 mg tablet 150 mg PO QHS PRN 06/11/24 Unknown History Allergy/AdvReac Type Severity Reaction Status Date / Time No Known Allergies Allergy Verified 11/30/23 05:20 Family History Father Heart disease Surgical History History of AAA (abdominal aortic aneurysm) repair History of transcatheter aortic valve replacement (TAVR) (~09/26/22) History of cystoscopy History of total knee arthroplasty History of inguinal hernia repair History of carpal tunnel release Amputated toe History of left knee replacement Social History household members: spouse Smoking Status: Never smoker substance use type: does not use ROS ROS ED Constitutional Constitutional ED: Denies chills or fever(s) ENT ENT ED: Denies sore throat Cardiovascular Cardiovascular: Denies chest pain Respiratory/Chest Respiratory/Chest: Denies cough or dyspnea Gastrointestinal Gastrointestinal: Denies abdominal pain, diarrhea, nausea or vomiting Musculoskeletal Musculoskeletal: Denies back pain Integumentary Denies rash Neurologic Neurologic: Denies headache(s) Hematologic/Lymphatic Hematologic/Lymphatic: Reports easy bleeding and easy bruising EXAM Physical Exam Const Vital Signs: 06/10/24 21:52 06/10/24 23:28 Temperature 98.4 F Temperature Source Oral Pulse Rate 112 H Respiratory Rate 18 Blood Pressure 189/139 H Blood Pressure Mean 155 Pulse Ox 97 100 Oxygen Delivery Method Room Air Nasal Cannula Oxygen Flow Rate (L/min) 2 Positive well nourished and well developed General Appearance ED: well developed; Negative for pallor HEENT HEENT Narrative: Normocephalic atraumatic Eyes PERRL and EOMs intact bilaterally General Eye ED: Negative for scleral icterus Neck supple Resp normal respiratory effort and clear to auscultation bilaterally Cardio regular rhythm Rate: tachycardic and other Other Details: Tachycardic rate with regular rhythm Radial and carotid pulses are equal and symmetric GI non-tender, non-distended and no masses GI Narrative: Abdomen is soft nontender and nondistended with hypoactive bowel sounds Patient has a stoma in the suprapubic region consistent with his history of suprapubic catheterization. There is trace amount of blood from this consistent with the traumatic removal of the suprapubic catheter. No active bleeding noted. No surrounding secondary changes to suggest infection Auscultation: hypoactive bowel sounds Palpation: soft Back/Spine no CVA tenderness Extremity Extremity Narrative: Trace edema to the bilateral lower extremities that is equal and symmetric Neuro oriented x3, CN's II-XII intact bilaterally and no sensory deficits noted Sensorium / Orientation: alert Motor Exam: strength 5/5 throughout Psych mental status grossly normal Skin no rashes or lesions noted General Skin Exam: Negative for jaundice or pallor MDM MDM MDM Narrative Medical decision making narrative: Patient arrived to the ER hypertensive but has a past medical history of this. He had inadvertent tugging of his suprapubic catheter leading to a spontaneous removal. Is been approximately 5 hours since the catheter has been removed in order to ensure he does not develop urinary retention the catheter will need to be replaced. The suprapubic catheter was initially placed almost 8 months ago and therefore my concern for developing a false passage is low. He does not have signs of surrounding secondary soft tissue skin infection such as cellulitis or abscess and therefore do not feel there is need for imaging or laboratory studies. The catheter was reinserted as documented below and patient is otherwise safe for discharge Patient had the suprapubic stoma cleaned with chlorhexidine. Sterile Q-tips were used to dilate the stoma. A 18 [place] Lockwood catheter was then inserted through the stoma into the suprapubic opening of the bladder. There was return of clear yellow urine indicating the catheter was in the proper position. Patient tolerated the procedure well without complication History & Record Review Discussion w/independent historian: Patient and Family Discharge Plan Triage Chief Complaint: Complaint ED Provider: Otoniel lElis Dx/Rx/DC Orders Clinical Impression: Suprapubic catheter dysfunction, History of prostate cancer, Hypertension, Hyperlipidemia Instructions: Suprapubic Catheter Dc Prescriptions: No Action albuterol sulfate 90 mcg/actuation HFA aerosol inhaler 2 puff inhalation Q6H PRN (Reason: SHORNSS OF BREATH/WHEEZING) oxycodone 5 mg tablet 5 mg PO BID PRN solifenacin [Vesicare] 10 mg tablet 10 mg PO QDAY trazodone 150 mg tablet 150 mg PO QHS PRN furosemide [Lasix] 20 mg tablet 60 mg PO DAILY bisacodyl 10 mg suppository 10 mg SC QDAY PRN lorazepam 0.5 mg tablet 0.5 mg PO QHS PRN omeprazole 20 mg tablet,delayed release (DR/EC) 20 mg PO QDAY cefazolin 2 gram recon soln 2 g IV Q8H 38 Days Rx Instructions: dx: endocarditis stop date 06/13/23 labs on Mondays and : bmp, LFT, cbc, gentamicin trough. Fax to [phone]. Routine picc care per protocol. gentamicin in NaCl (iso-osm) 100 mg/100 mL piggyback 90 mg IV Q12H 10 Days Rx Instructions: dx: endocarditis stop date 05/16/23 labs on Mondays and : bmp, LFT, cbc, gentamicin trough. Fax to [phone]. Routine picc care per protocol. ondansetron 4 mg tablet,disintegrating 4 mg PO Q8H PRN (Reason: NAUSEA ) acetaminophen [8 Hour Pain Reliever] 650 mg tablet extended release 1,300 mg PO Q6H PRN (Reason: pain) cefepime 2 gram recon soln 2 g IV Q12H phenazopyridine [Pyridium] 100 mg tablet 200 mg PO TID PRN (Reason: pain) Qty: 9 0RF cefdinir 300 mg capsule 300 mg PO BID Qty: 14 0RF phenazopyridine [Pyridium] 200 mg tablet 200 mg PO TID PRN (Reason: pain) Qty: 6 0RF metoprolol tartrate 50 mg tablet 50 mg PO BID Qty: 180 3RF diltiazem HCl 240 mg capsule,extended release 24hr 240 mg PO DAILY Qty: 90 3RF potassium chloride 20 mEq tablet extended release 20 meq PO BID Qty: 180 3RF Primary Care Provider: Darrin Ramirez Referrals: Darrin Ramirez MD [Primary Care Provider] - Print Language: Niuean Disposition Disposition: Home, Self Care Discharge Date/Time: 06/11/24 00:07
== END 2024-06-11 00:07 | disposition home or self-care (01) ==
PROVIDERS: Emergency Provider Emergency Medicine; PCP Family Medicine; Visit Provider Emergency Medicine
DX: T83.018A Breakdown (mechanical) of other urinary catheter, initial encounter (principal); I48.91 Unspecified atrial fibrillation; I10 Essential (primary) hypertension; E78.5 Hyperlipidemia, unspecified; Z85.46 Personal history of malignant neoplasm of prostate; Z79.899 Other long term (current) drug therapy; K21.9 Gastro-esophageal reflux disease without esophagitis; Z95.2 Presence of prosthetic heart valve; Z96.652 Presence of left artificial knee joint
CPT/HCPCS: 96372; 99284